=== PATIENT | male | born 1930 | race Caucasian/White ===

== ENCOUNTER 2017-04-10 17:19 | Observation (INO) | payer MEDICARE, BC ==
[2017-04-10] MEDS ORDERED: Haloperidol Lactate 5 MG/ML SDV ONE (18:13)
--- NOTE | 2017-04-10 19:12 | EDM.PDOC ---
ED HPI GENERAL MEDICAL PROBLEM - General Time Seen by Provider: 04/10/17 17:20 Source of Information: Reports: Other ([facility] staff) History Limitations: Reports: Uncooperative, Other (schizophernia) - History of Present Illness INITIAL COMMENTS - FREE TEXT/NARRATIVE: Pt is a 86 year old male apparently has had some behavioral changes over the past 3 days now. According to staff he has been opening his shirt and sitting in the mathur ways refusing to go to his room. Also he has been messing up the toilet with stool over the commode and huerta. He is not combative but has significant behavioral changes, hallucinating and delusional at times. Pt was seen by Psychiarist, and increased his afternoon dose of seroquel, but changes have not been initiated. Apparently I was requested to see patient today evening as the staff has noticed that patient abdomen is bulging and bladder scan done showed about 900CC of urine in the bladder. Pt has been having urinary incontinence for the past few days now. Hence patient wasa brought into the emergency room to have urinary catheterisation and further workup. He has had CBC, BMP and UA done on 04/08/17. His CBC is normal and BMP is stable. His UA showed blood. - Related Data Allergies Allergy/AdvReac Type Severity Reaction Status Date / Time No Known Allergies Allergy Verified 04/10/17 18:32 Home Meds: Home Meds Acetaminophen [Tylenol] 650 mg PO BID 04/10/17 [History] Calcitonin,[place],Synthetic [Calcitonin-[place]] 1 applic TOP DAILY 04/10/17 [ History] Citalopram Hydrobromide [Citalopram HBr] 20 mg PO DAILY 04/10/17 [History] Erythromycin Base [Erythromycin] 1 applic TOP DAILY 04/10/17 [History] Lisinopril [Lisinopril] 10 mg PO DAILY 04/10/17 [History] QUEtiapine [SEROquel] 200 mg PO BID 04/10/17 [History] QUEtiapine [SEROquel] 450 mg PO DAILY 04/10/17 [History] metFORMIN HCl [Metformin HCl] 250 mg PO BID 04/10/17 [History] metroNIDAZOLE [metroNIDAZOLE 0.75% Cream] 1 applic TOP DAILY 04/10/17 [History] ED ROS GENERAL - Review of Systems Review Of Systems: Unable To Obtain (due to schizophrenia) ED EXAM, GENERAL - Physical Exam Exam: See Below Exam Limited By: Uncooperative General Appearance: Alert, WD/WN, No Apparent Distress, Other (slightly irritable ) Eye Exam: Bilateral Eye: EOMI, PERRL Ears: Normal External Exam, Normal Canal, Hearing Grossly Normal, Normal TMs Ear Exam: Bilateral Ear: Auricle Normal, Canal Normal, TM normal Nose: Normal Inspection, Normal Mucosa, No Blood Throat/Mouth: Normal Inspection, Normal Lips, Normal Teeth, Normal Gums, Normal Oropharynx, Normal Voice, No Airway Compromise Head: Atraumatic, Normocephalic Neck: Normal Inspection, Supple, Non-Tender, Full Range of Motion Respiratory/Chest: No Respiratory Distress, Lungs Clear, Normal Breath Sounds, No Accessory Muscle Use, Chest Non-Tender Cardiovascular: Normal Peripheral Pulses, Regular Rate, Rhythm, No Edema, No Gallop, No JVD, No Murmur, No Rub GI/Abdominal: Normal Bowel Sounds, No Organomegaly, No Abnormal Bruit, Other ( there is a large supr pubic swelling which is very tense to palpation. Fluctuant. Appear vey much like distended baldder. Also his Depends are soaked with urine) Extremities: Normal Inspection, Normal Capillary Refill Neurological: Alert, CN II-XII Intact. No: Oriented Psychiatric: Flat Affect Skin Exam: Warm, Intact Course - Vital Signs Text/Narrative:: Apparently at this point patient has urinary bladder distension with overflow. His urinary incontinence is secondary to the distension.I am not sure how long he has been distended, but according to staff they feel it has been since today morning. Pt needed haldol 5mg IM to calm him down for carpio catheter insertion. Cather was inserted and about 1600 C of urine was drained. Pt's vitals have been stable. Cather has been presently clamped. Pt tolerated the procedure well. UA has been sent. Plan is to admit patient to hospital for observation as there is not enough staff at the care center to monitor patient with the catheter. Will continue to clamp and release the catheter every 4 hrs for 5-6 cycles and remove the catheter. Pt will not tell us if he has urge to urinate as he has been incontinence all this time. - Orders/Labs/Meds Meds: Medications Discontinued Medications Generic Name Dose Route Start Last Admin Trade Name Freq PRN Reason Stop Dose Admin Haloperidol Lactate Confirm 04/10/17 18:13 Haldol Administered 04/10/17 18:14 Dose 5 mg .ROUTE .STK-MED ONE Departure - Departure Time of Disposition: 19:30 Disposition: Refer to Observation Condition: Fair Clinical Impression: Incontinence overflow, urine, Bladder distension - Discharge Information - Problem List & Annotations (1) Bladder distension SNOMED Code(s): 30783377 Code(s): N32.89 - OTHER SPECIFIED DISORDERS OF BLADDER Status: Acute Current Visit: Yes (2) Incontinence overflow, urine SNOMED Code(s): 625214138 Code(s): N39.490 - OVERFLOW INCONTINENCE Status: Acute Current Visit: Yes - Problem List Review Problem List Initiated/Reviewed/Updated: Yes - Assessment/Plan Assessment:: Urinary bladder distension with overflow incontinence Plan: Apparently at this point patient has urinary bladder distension with overflow. His urinary incontinence is secondary to the distension.I am not sure how long he has been distended, but according to staff they feel it has been since today morning. Pt needed haldol 5mg IM to calm him down for carpio catheter insertion. Cather was inserted and about 1600 C of urine was drained. Pt's vitals have been stable. Cather has been presently clamped. Pt tolerated the procedure well. UA has been sent. Plan is to admit patient to hospital for observation as there is not enough staff at the care center to monitor patient with the catheter. Will continue to clamp and release the catheter every 4 hrs for 5-6 cycles and remove the catheter. Pt will not tell us if he has urge to urinate as he has been incontinence all this time.
[2017-04-10] MEDS ORDERED: Haloperidol Lactate 5 MG/ML SDV IM ONE (19:23)
[2017-04-10] MEDS: Acetaminophen 325 MG Tab PO SCH (23:41)
[2017-04-10] MEDS: QUETIAPINE 200 MG PO SCH (23:41)
[2017-04-10] MEDS: metFORMIN 500 MG Tab PO SCH (23:41)
[2017-04-11] MEDS: Acetaminophen 325 MG Tab PO SCH (07:43)
[2017-04-11] MEDS: QUETIAPINE 200 MG PO SCH ×2 (07:44→10:38)
[2017-04-11] MEDS: metFORMIN 500 MG Tab PO SCH (07:44)
[2017-04-11] MEDS ORDERED: QUETIAPINE PO SCH ×2 (08:00→20:00)
[2017-04-11] MEDS ORDERED: Non-Formulary Medication 1 Each (Metronidazole [Metronidazole 0.75% Cream] 1 APPLIC) TOP SCH (08:00)
[2017-04-11] MEDS ORDERED: Calcitonin (Salmon) Nasal Spray 3.7 ML Bottle NAS SCH (08:00)
[2017-04-11] MEDS ORDERED: Non-Formulary Medication 1 Each (Citalopram Hydrobromide [Citalopram Hbr] 20 MG) PO SCH (08:00)
[2017-04-11] MEDS ORDERED: Erythromycin Base 0.5% Ophth Oint 3.5 GM Tube EYEBOTH SCH (08:00)
[2017-04-11] MEDS: Lisinopril 10 MG Tab PO SCH ×2 (10:37→11:45)
[2017-04-11] MEDS ORDERED: QUETIAPINE 200 MG PO SCH (11:00)
--- NOTE | 2017-04-11 11:55 | PCM.DCSUM1 ---
Discharge Summary - Hospital Course Free Text/Narrative:: Pt had acute bladder distension, and agitated. Pt had Smith placed. There was approximately 1600 drained slowly. Also pt was admitted for bladder training. The catheter was clamped and released every 4hrs. Also his UA was negative. Pt has done well seems to be not agitated today morning and behaviour has improved. The possible cause of the agitation was bladder distension, to which patient might have been reacting. Today he is alert and responding appropriately and not agitated. catheter was removed. Plan is to discharge patient back to care center. Will discuss patient with his PCP Dr. Gonzalez. Brief History: Pt was seen in the emergency room for agittion with acute bladder distension. kindly see H&P for details. - Discharge Data Discharge Date: 04/11/17 Discharge Disposition: DC/Tfer to [facility] 61 Condition: Good - Discharge Diagnosis/Problem(s) (1) Bladder distension SNOMED Code(s): 22387325 ICD Code: N32.89 - OTHER SPECIFIED DISORDERS OF BLADDER Status: Acute Current Visit: Yes (2) Incontinence overflow, urine SNOMED Code(s): 071534031 ICD Code: N39.490 - OVERFLOW INCONTINENCE Status: Acute Current Visit: Yes - Patient Instructions Diet: Diabetic Diet Fluid Restriction: 1500 mL Activity: As Tolerated Showering/Bathing: January Shower - Discharge Plan Home Medications: Home Meds Acetaminophen [Tylenol] 650 mg PO BID 04/10/17 [History] Calcitonin,[place],Synthetic [Calcitonin-[place]] 1 applic TOP DAILY 04/10/17 [ History] Citalopram Hydrobromide [Citalopram HBr] 20 mg PO DAILY 04/10/17 [History] Erythromycin Base [Erythromycin] 1 applic TOP DAILY 04/10/17 [History] Lisinopril [Lisinopril] 10 mg PO DAILY 04/10/17 [History] QUEtiapine [SEROquel] 200 mg PO BID 04/10/17 [History] QUEtiapine [SEROquel] 450 mg PO DAILY 04/10/17 [History] metFORMIN HCl [Metformin HCl] 250 mg PO BID 04/10/17 [History] metroNIDAZOLE [metroNIDAZOLE 0.75% Cream] 1 applic TOP DAILY 04/10/17 [History] Referrals: PCP,None [Primary Care Provider] - - Discharge Summary/Plan Comment DC Time >30 min.: Yes Discharge Summary/Plan Comment: Pt had acute bladder distension, and agitated. Pt had Smith placed. There was approximately 1600 drained slowly. Also pt was admitted for bladder training. The catheter was clamped and released every 4hrs. Also his UA was negative. Pt has done well seems to be not agitated today morning and behaviour has improved. The possible cause of the agitation was bladder distension, to which patient might have been reacting. Today he is alert and responding appropriately and not agitated. catheter was removed.Pt appears to be at his baseline level of functioning now. Plan is to discharge patient back to care center. Will discuss patient with his PCP Dr. Gonzalez. - General Info Date of Service: 04/11/17 Subjective Update: Pt has been calmer and not agitated. Has had his breakfast. Has not been in any discomfort No episodes of agitation per staff. Urine draining through Smith. Functional Status: Reports: Tolerating Diet, Ambulating, Urinating, Other ( unable to obtain due to patient's condition) - Patient Data Weight - Most Recent: 68.946 kg Med Orders - Current: Current Medications Acetaminophen (Tylenol) 650 mg PO BID [facility] Last Admin: 04/11/17 07:43 Dose: 650 mg Calcitonin [place] (Miacalcin Nasal [place]) 0 ml MIKY DAILY [facility] Last Admin: 04/11/17 08:46 Dose: Not Given Erythromycin (Erythromycin 0.5% Ophth Oint) 0 gm EYEBOTH DAILY [facility] Last Admin: 04/11/17 08:45 Dose: Not Given Lisinopril (Prinivil) 10 mg PO DAILY [facility] Last Admin: 04/11/17 10:37 Dose: Not Given Metformin HCl (Glucophage) 250 mg PO BID [facility] Last Admin: 04/11/17 07:44 Dose: 250 mg Non-Formulary Medication (Citalopram Hydrobromide [Citalopram Hbr]) 20 mg PO DAILY [facility] Last Admin: 04/11/17 10:37 Dose: Not Given Non-Formulary Medication (Metronidazole [Metronidazole 0.75% Cream]) 1 applic TOP DAILY [facility] Last Admin: 04/11/17 08:45 Dose: Not Given Non-Formulary Medication (Quetiapine [Seroquel]) 450 mg PO DAILY@1999 [facility] (Quetiapine [ Seroquel] 200 Mg)*Pt Own Med* 200 mg PO BID@0800,1100 [facility] Discontinued Medications Haloperidol Lactate (Haldol) Confirm Administered Dose 5 mg .ROUTE .STK-MED ONE Stop: 04/10/17 18:14 Last Admin: 04/10/17 23:41 Dose: Not Given Haloperidol Lactate (Haldol) 5 mg IM ONETIME ONE Stop: 04/10/17 19:24 Last Admin: 04/11/17 07:41 Dose: 5 mg Non-Formulary Medication (Quetiapine [Seroquel]) 200 mg PO BID [facility] Last Admin: 04/11/17 10:38 Dose: Not Given Non-Formulary Medication (Quetiapine [Seroquel]) 450 mg PO DAILY [facility] Non-Formulary Medication (Quetiapine [Seroquel]) 200 mg PO BID@1100,2000 [facility] (Quetiapine [ Seroquel] 200 Mg)*Pt Own Med* 200 mg PO ONETIME ONE Stop: 04/11/17 11:16 Quetiapine Fumarate (Seroquel) Confirm Administered Dose 200 mg .ROUTE .STK-MED ONE Stop: 04/11/17 07:37 Last Admin: 04/11/17 07:42 Dose: 200 mg - Exam General: Reports: Alert, Oriented HEENT: Reports: Pupils Equal, Pupils Reactive, EOMI, Mucous Membr. Moist/[place] Neck: Reports: Supple Lungs: Reports: Clear to Auscultation, Normal Respiratory Effort Cardiovascular: Reports: Regular Rate, Regular Rhythm GI/Abdominal Exam: Normal Bowel Sounds, Soft, Non-Tender, No Organomegaly, No Distention, No Abnormal Bruit, No Mass, Pelvis Stable Back Exam: Reports: Normal Inspection, Full Range of Motion Extremities: Normal Inspection, Normal Range of Motion, Non-Tender, No Pedal Edema, Normal Capillary Refill *Q Meaningful Use (DIS) - VTE *Q VTE Criteria *Q: - Stroke *Q Stroke Criteria *Q: - AMI *Q AMI Criteria *Q:
[2017-04-11 14:39] VITALS: BP 151/59
== END 2017-04-11 14:20 ==
LOC: LB.ED 17:19 → UNDOADMOB 19:00 → LB.MS 19:00
PROVIDERS: ADMIT Family Medicine; ATTEND Family Medicine
DX: N32.89 Other specified disorders of bladder (principal); N39.490 Overflow incontinence; E11.9 Type 2 diabetes mellitus without complications; Z79.84 Long term (current) use of oral hypoglycemic drugs; Z79.899 Other long term (current) drug therapy
CPT/HCPCS: 51702; 81001; 96372; 99284; A9270; G0378; J1630; 99217; 99219

== ENCOUNTER 2017-04-13 15:33 | Emergency (ER) | payer MEDICARE, BC ==
[2017-04-13 15:58] VITALS: BP 165/87
[2017-04-13] MEDS ORDERED: Magnesium Citrate Solution 296 ML Bottle PO ONE (17:00)
--- NOTE | 2017-04-13 18:01 | EDM.PDOC ---
ED HPI GENERAL MEDICAL PROBLEM - General Chief Complaint: General Stated Complaint: urine retention, diarrhea Time Seen by Provider: 04/13/17 16:00 Source of Information: Reports: Intermediate Records, RN, Other (Caitlyn nurse from LT) History Limitations: Reports: Other (pt responds best to written words, hard of hearing) - History of Present Illness INITIAL COMMENTS - FREE TEXT/NARRATIVE: This 86 yr male presents with unable to urinate and no BM for 4 days. Caitlyn nurse from [facility] states pt has had some loose stools, but no good BM for 4 days. Abdomen is distended. States there is an order for intermittent catheter every shift as needed for no urination. Staff report that pt hasn't let them put the catheter in this shift and no urine has been noted in the hat in the toilet. U/A ordered with carpio catheter and x-ray of abdomen. Carpio catheter placed with large amount juan urine noted. Pt resting well sitting in wheelchair after carpio catheter inserted. U/A clear with no bacteria noted. 1645pm Reviewed pt status with Dr Gonzalez, states carpio catheter may remain for 48 hour unless pt states discomfort with it, then may D/C sooner. Magnesium citrate for BM. 1700 X-ray report confirms constipation, no bowel obstruction. VERONICA Prado started pt with magnesium citrate. Pt took fluid well. 1705 Pt discharged to care of staff at longterm care facility. Onset: Gradual Onset Date: 04/09/17 Duration: Intermittent Associated Symptoms: Reports: Other (Constipation and no urination) Treatments [employer]: Reports: Other Medication(s) - Related Data Allergies Allergy/AdvReac Type Severity Reaction Status Date / Time No Known Allergies Allergy Verified 04/10/17 18:32 Home Meds: Home Meds Acetaminophen [Tylenol] 650 mg PO BID 04/10/17 [History] Calcitonin,[place],Synthetic [Calcitonin-[place]] 1 spray INH DAILY 04/10/17 [ History] Citalopram Hydrobromide [Citalopram HBr] 20 mg PO BEDTIME 04/10/17 [History] Erythromycin Base [Erythromycin] 1 applic TOP BEDTIME 04/10/17 [History] Lisinopril [Lisinopril] 10 mg PO DAILY 04/10/17 [History] QUEtiapine [SEROquel] 450 mg PO BEDTIME 04/10/17 [History] metFORMIN HCl [Metformin HCl] 250 mg PO BID 04/10/17 [History] metroNIDAZOLE [metroNIDAZOLE 0.75% Cream] 1 applic TOP DAILY 04/10/17 [History] QUEtiapine Fumarate [Seroquel] 100 mg PO ACBREAKFAST 04/13/17 [History] QUEtiapine [SEROquel XR] 1 tab PO ACLUNCH 04/13/17 [History] Past Medical History Other HEENT History: [place] Cardiovascular History: Reports: Hypertension Genitourinary History: Reports: Retention, Urinary Musculoskeletal History: Reports: Other (See Below) Other Musculoskeletal History: Generalized weakness Neurological History: Reports: Alzheimers Disease Psychiatric History: Reports: Alzheimers Disease, Dementia, Depression, Schizophrenia Endocrine/Metabolic History: Reports: Diabetes, Type II Dermatologic History: Reports: Psoriasis, Seborrheic Dermatitis, Other (See Below) Other Dermatologic History: Toenail Fungus. Rosacia Social & Family History - Family History Family Medical History: Noncontributory - Tobacco Use Smoking Status *Q: Unknown Ever Smoked Second Hand Smoke Exposure: Yes - Caffeine Use Caffeine Use: Reports: Coffee - Recreational Drug Use Recreational Drug Use: No ED ROS GENERAL - Review of Systems Review Of Systems: See Below Constitutional: Denies: Fever, Chills Respiratory: Reports: No Symptoms Cardiovascular: Reports: No Symptoms GI/Abdominal: Reports: Constipation, Distension : Reports: Urinary Retention Musculoskeletal: Reports: No Symptoms ED EXAM, GENERAL - Physical Exam Exam: See Below Exam Limited By: Other (Pt not responding to questions.) General Appearance: Alert, No Apparent Distress. No: Anxious Respiratory/Chest: No Respiratory Distress, Lungs Clear Cardiovascular: Regular Rate, Rhythm, No Edema GI/Abdominal: Normal Bowel Sounds, Distended. No: Guarding, Rebound (Male) Exam: Normal Inspection Extremities: Normal Inspection Neurological: Alert Psychiatric: Flat Affect Skin Exam: Warm, Dry, Normal Color Course - Vital Signs Last Recorded V/S: Last Vital Signs Temp 98.6 F 04/13/17 15:33 Pulse 90 04/13/17 15:33 Resp 12 04/13/17 15:33 BP 165/87 H 04/13/17 15:33 Pulse Ox 97 04/13/17 15:33 - Orders/Labs/Meds Orders: Active Orders 24 hr Category Date Time Status Abdomen 1V Upright [CR] Stat Exams 04/13/17 16:01 Ordered Labs: Laboratory Tests 04/13/17 Range/Units 16:00 Urine Color Yellow Urine Appearance Clear (CLEAR) Urine pH 6.5 (5.0-8.0) Ur Specific [place] 1.025 (1.003-1.030) Urine Protein 30 H (NEGATIVE) mg/dL Urine Glucose (UA) 100 H (NEGATIVE) mg/dL Urine Ketones Negative (NEGATIVE) mg/dL Urine Occult Blood Trace-intact H (NEGATIVE) Urine Nitrite Negative (NEGATIVE) Urine Bilirubin Negative (NEGATIVE) Urine Urobilinogen 0.2 (0.2-1.0) E.U./dL Ur Leukocyte Esterase Negative (NEGATIVE) Urine RBC 5-10 H /HPF Urine WBC Not seen /HPF Meds: Medications Discontinued Medications Generic Name Dose Route Start Last Admin Trade Name Freq PRN Reason Stop Dose Admin Magnesium Citrate 296 ml 04/13/17 17:00 Citrate Of Magnesia PO 04/13/17 17:01 ONETIME ONE Departure - Departure Time of Disposition: 17:05 Disposition: DC/Tfer to [facility] Condition: Good Clinical Impression: Bladder distension, Constipation - Discharge Information Instructions: Constipation, Adult, Fecal Impaction Referrals: PCP,None [Primary Care Provider] - Forms: ED Department Discharge - My Orders Last 24 Hours: My Active Orders 04/13/17 16:01 Abdomen 1V Upright [CR] Stat - Assessment/Plan Last 24 Hours: My Active Orders 04/13/17 16:01 Abdomen 1V Upright [CR] Stat
--- NOTE | 2017-04-14 07:10 | CR ---
DATE OF SERVICE: 04/13/17 CLINICAL DATA: Abdominal distention, stool incontinence. SUPINE ABDOMEN: There is a large amount of stool noted throughout the colon and rectum. There is left convexity scoliosis of the upper lumbar spine. There is degenerative disc disease at multiple levels in the lower thoracic and lumbar spine. There are partial compression fractures of the L1 and L2 vertebrae, age indeterminate. No other significant findings. [id number] [facility]
== END 2017-04-13 17:15 ==
LOC: LB.ED 15:33
DX: N32.89 Other specified disorders of bladder (principal); K59.00 Constipation, unspecified; G30.9 Alzheimer's disease, unspecified; F02.80 Dementia in other diseases classified elsewhere, unspecified severity, without behavioral disturbance, psychotic disturbance, mood disturbance, and anxiety; E11.9 Type 2 diabetes mellitus without complications; F20.9 Schizophrenia, unspecified; Z79.84 Long term (current) use of oral hypoglycemic drugs; Z79.899 Other long term (current) drug therapy
CPT/HCPCS: 74000; 81001; 99283; 99284

== ENCOUNTER 2017-04-18 16:38 | Emergency (ER) | payer MEDICARE, BC ==
[2017-04-18] MEDS ORDERED: Ciprofloxacin 500 MG Tab ONE (17:50)
--- NOTE | 2017-04-18 17:55 | EDM.PDOC ---
ED HPI GENERAL MEDICAL PROBLEM - General Chief Complaint: Genitourinary Problem Stated Complaint: URINARY RETENTION Time Seen by Provider: 04/18/17 16:47 Source of Information: Reports: Other (long term staff) - History of Present Illness Onset: Today Onset Date: 04/18/17 Onset Time: 14:00 Treatments [place] CONSTABLE: Reports: Other (see below) Other Treatments [place] CONSTABLE: Bladder scan - Related Data Allergies Allergy/AdvReac Type Severity Reaction Status Date / Time No Known Allergies Allergy Verified 04/10/17 18:32 Home Meds: Home Meds Acetaminophen [Tylenol] 650 mg PO BID 04/10/17 [History] Calcitonin,[place],Synthetic [Calcitonin-[place]] 1 spray INH DAILY 04/10/17 [ History] Citalopram Hydrobromide [Citalopram HBr] 20 mg PO BEDTIME 04/10/17 [History] Erythromycin Base [Erythromycin] 1 applic TOP BEDTIME 04/10/17 [History] Lisinopril [Lisinopril] 10 mg PO DAILY 04/10/17 [History] QUEtiapine [SEROquel] 450 mg PO BEDTIME 04/10/17 [History] metFORMIN HCl [Metformin HCl] 250 mg PO BID 04/10/17 [History] metroNIDAZOLE [metroNIDAZOLE 0.75% Cream] 1 applic TOP DAILY 04/10/17 [History] QUEtiapine Fumarate [Seroquel] 100 mg PO ACBREAKFAST 04/13/17 [History] QUEtiapine [SEROquel XR] 1 tab PO ACLUNCH 04/13/17 [History] Past Medical History Other HEENT History: ELEM Cardiovascular History: Reports: Hypertension Genitourinary History: Reports: Retention, Urinary Musculoskeletal History: Reports: Other (See Below) Other Musculoskeletal History: Generalized weakness Neurological History: Reports: Alzheimers Disease Psychiatric History: Reports: Alzheimers Disease, Dementia, Depression, Schizophrenia Endocrine/Metabolic History: Reports: Diabetes, Type II Dermatologic History: Reports: Psoriasis, Seborrheic Dermatitis, Other (See Below) Other Dermatologic History: Toenail Fungus. Rosacia Social & Family History - Family History Family Medical History: Noncontributory - Tobacco Use Smoking Status *Q: Unknown Ever Smoked Second Hand Smoke Exposure: Yes - Caffeine Use Caffeine Use: Reports: Coffee - Recreational Drug Use Recreational Drug Use: No ED ROS GENERAL - Review of Systems Review Of Systems: Unable To Obtain ED EXAM, RENAL/ - Physical Exam Exam: Not Obtained Course - Vital Signs Last Recorded V/S: Last Vital Signs Temp 36.8 C 04/18/17 17:45 Pulse 76 04/18/17 17:45 Resp 20 04/18/17 17:45 BP 166/94 H 04/18/17 17:45 Pulse Ox 99 04/18/17 17:45 - Orders/Labs/Meds Orders: Active Orders 24 hr Category Date Time Status Abdomen 2V AP Flat Upright [CR] Stat Exams 04/18/17 16:42 Taken CULTURE URINE [RM] Stat Lab 04/18/17 17:00 Received Labs: Laboratory Tests 04/18/17 04/18/17 04/18/17 Range/Units 16:42 17:00 17:00 WBC 5.0 (4.0-11.0) K/uL RBC 4.15 L (4.50-6.50) M/uL Hgb 13.0 (13.0-18.0) g/dL Hct 39.2 L (40.0-54.0) % MCV 95 (76-96) fL MCH 31.3 (27.0-32.0) pg MCHC 33.2 (31.0-35.0) g/dL RDW 12.4 (11.0-16.0) % Plt Count 262 D (150-400) K/uL MPV 9.2 (6.0-10.0) fL Neut % (Auto) 53.2 (45.0-70.0) % Lymph % (Auto) 28.4 (20.0-40.0) % [place] % (Auto) 12.2 H (3.0-10.0) % Eos % (Auto) 5.8 H (1.0-5.0) % Baso % (Auto) 0.4 (0.0-0.5) % Neut # (Auto) 2.66 (2.00-7.50) K/uL Lymph # (Auto) 1.42 L (1.50-4.00) K/uL [place] # (Auto) 0.61 (0.20-0.80) K/uL Eos # (Auto) 0.29 (0.04-0.40) K/uL Baso # (Auto) 0.02 (0.02-0.10) K/uL Sodium 140 (136-145) mmol/L Potassium 4.4 (3.5-5.1) mmol/L Chloride 105 (98-107) mmol/L Carbon Dioxide 27.5 (21.0-32.0) mmol/L Anion Gap 11.9 (5.0-15.0) mmol/L BUN 30 H D (8-26) mg/dL Creatinine 1.10 (0.70-1.30) mg/dL Est Cr Clr Drug Dosing TNP Estimated GFR (MDRD) > 60 (>60) MLS/MIN BUN/Creatinine Ratio 27.3 H (6-25) Glucose 140 H (74-100) mg/dL Calcium 9.2 (8.5-10.1) mg/dL Total Bilirubin 0.8 (0.0-1.0) mg/dL AST 12 L (15-37) U/L ALT 14 (12-78) U/L Alkaline Phosphatase 87 (46-116) U/L Total Protein 7.5 (6.4-8.2) g/dL Albumin 3.7 (3.4-5.0) g/dL Globulin 3.8 (2.2-4.2) g/dL Albumin/Globulin Ratio 1.0 (0.8-2.0) Urine Color Yellow Urine Appearance Slightly cloudy (CLEAR) Urine pH 5.5 (5.0-8.0) Ur Specific [place] >= 1.030 (1.003-1.030) Urine Protein Trace H (NEGATIVE) mg/dL Urine Glucose (UA) Negative (NEGATIVE) mg/dL Urine Ketones Negative (NEGATIVE) mg/dL Urine Occult Blood Moderate H (NEGATIVE) Urine Nitrite Negative (NEGATIVE) Urine Bilirubin Negative (NEGATIVE) Urine Urobilinogen 0.2 (0.2-1.0) E.U./dL Ur Leukocyte Esterase Trace H (NEGATIVE) Urine RBC 5-10 H /HPF Urine WBC Semi-packed H /HPF Urine WBC Clumps Few /HPF Ur Squamous Epith Cells Few /HPF Urine Bacteria Moderate H /HPF Departure - Departure Time of Disposition: 17:53 Disposition: DC/Tfer to Longterm [place] [id number] Clinical Impression: UTI, Urinary tract infectious disease, UTI (urinary tract infection) - Discharge Information Forms: ED Department Discharge - My Orders Last 24 Hours: My Active Orders 04/18/17 16:42 Abdomen 2V AP Flat Upright [CR] Stat 04/18/17 17:00 CULTURE URINE [RM] Stat - Assessment/Plan Last 24 Hours: My Active Orders 04/18/17 16:42 Abdomen 2V AP Flat Upright [CR] Stat 04/18/17 17:00 CULTURE URINE [RM] Stat
[2017-04-18 18:03] VITALS: BP 154/97
--- NOTE | 2017-04-19 19:12 | CR ---
DATE OF SERVICE: 04/18/2017 CLINICAL DATA: Constipation. SUPINE AND UPRIGHT ABDOMEN There is a large amount of stool present throughout the colon and rectum. No evidence of obstruction or ileus. No free air. [id number] [facility]
== END 2017-04-18 18:00 ==
LOC: LB.ED 16:38
DX: N13.9 Obstructive and reflux uropathy, unspecified (principal); N39.0 Urinary tract infection, site not specified; K59.00 Constipation, unspecified; I10 Essential (primary) hypertension; E11.9 Type 2 diabetes mellitus without complications; G30.9 Alzheimer's disease, unspecified; F02.80 Dementia in other diseases classified elsewhere, unspecified severity, without behavioral disturbance, psychotic disturbance, mood disturbance, and anxiety; Z79.899 Other long term (current) drug therapy; Z79.84 Long term (current) use of oral hypoglycemic drugs
CPT/HCPCS: 36415; 51702; 51798; 74020; 80053; 81001; 85025; 87086; 87088; 87186; 99283; A9270

== ENCOUNTER 2017-04-26 10:42 | Inpatient (IN) | payer MEDICARE, BC ==
[2017-04-26] MEDS ORDERED: HYDROmorphone 2 MG/ML Syringe IVPUSH ONE (11:38)
[2017-04-26] MEDS ORDERED: Ondansetron 4 MG/2 ML SDV IVPUSH ONE (11:44)
[2017-04-26] MEDS ORDERED: HYDROmorphone 2 MG/ML Syringe ONE (11:58)
[2017-04-26] MEDS ORDERED: Ondansetron 4 MG/2 ML SDV ONE (11:59)
[2017-04-26] MEDS ORDERED: Sodium Chloride 0.9% 1,000 ML IV SCH (12:33)
[2017-04-26] MEDS ORDERED: Albuterol 0.083% 2.5 MG/3 ML Neb Soln NEB PRN (12:33)
[2017-04-26] MEDS ORDERED: Ondansetron 4 MG/2 ML SDV IV PRN (12:33)
--- NOTE | 2017-04-26 13:01 | PCM.HP ---
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 The Nurse Enzyme Chemist reports Mr. Lowe has fallen twice yesterday and once this morning, when it was observed his falling from an unsteady gait to the floor, hit the right hip and back of his head. He is here for evaluation. -Workup in the Emergency Room he had a XR of right hip and pelvis; negative for acute bony injury. Head CT without contrast Acute on chronic Subdural Hemorrhage layering along the right side of the falx and along the right tentorium. Extra-axial areas of high density lentiform shaped hemorrhage wihtin the right high frontal region measuring up to 7.5 mm in greatest axial dimension , likely subdural. right to left midline shift of approximately 6mm. -Consulted with [facility] Neurosurgeon who recommends 24 hour observation, repeat Head CT without contrast in am, and appointment with Neurology Clinic in one month. Report this type of bleed can resolve on its own without any intervention or can progress. will need to monitor. Contact was made with Housekeeper Nanny, will admit as recommended, keep comfortable and provide recommended care. will contact Guardian to inform of Mr. Lowe condition. He is currently being treated for bladder infection. He has pre-existing severe dementia, paranoid schizophrenia with hallucination, UTI, psoriasis and HTN. Guardian appointed and Housekeeper Nanny manage his care. He is DNR/DNI Onset of Symptoms: Reports: Sudden Duration of Symptoms: Reports: Hour(s): Location: Reports: Generalized Quality: Reports: Other (agitation) Severity: Moderate Improves with: Reports: None Worsens with: Reports: Movement Context: Reports: Other (fall at [facility]) Associated Symptoms: Reports: Other (agitiation) - Related Data Allergies/Adverse Reactions: Allergies Allergy/AdvReac Type Severity Reaction Status Date / Time No Known Allergies Allergy Verified 04/26/17 11:33 Home Medications: Home Meds Acetaminophen [Tylenol] 650 mg PO BID 04/10/17 [History] Calcitonin,Tanacross,Synthetic [Calcitonin-Tanacross] 1 spray INH DAILY 04/10/17 [ History] Citalopram Hydrobromide [Citalopram HBr] 20 mg PO BEDTIME 04/10/17 [History] Erythromycin Base [Erythromycin] 1 applic TOP BEDTIME 04/10/17 [History] Lisinopril [Lisinopril] 10 mg PO DAILY 04/10/17 [History] QUEtiapine [SEROquel] 450 mg PO BEDTIME 04/10/17 [History] metFORMIN HCl [Metformin HCl] 250 mg PO BID 04/10/17 [History] metroNIDAZOLE [metroNIDAZOLE 0.75% Cream] 1 applic TOP DAILY 04/10/17 [History] QUEtiapine Fumarate [Seroquel] 100 mg PO ACBREAKFAST 04/13/17 [History] QUEtiapine [SEROquel XR] 1 tab PO ACLUNCH 04/13/17 [History] Past Medical History Other HEENT History: KASAAN Cardiovascular History: Reports: Hypertension Genitourinary History: Reports: Retention, Urinary Musculoskeletal History: Reports: Other (See Below) Other Musculoskeletal History: Generalized weakness Neurological History: Reports: Alzheimers Disease Psychiatric History: Reports: Alzheimers Disease, Dementia, Depression, Schizophrenia Endocrine/Metabolic History: Reports: Diabetes, Type II Dermatologic History: Reports: Psoriasis, Seborrheic Dermatitis, Other (See Below) Other Dermatologic History: Toenail Fungus. Rosacia Social & Family History - Family History Family Medical History: Noncontributory - Tobacco Use Smoking Status *Q: Unknown Ever Smoked Second Hand Smoke Exposure: Yes - Caffeine Use Caffeine Use: Reports: Coffee - Recreational Drug Use Recreational Drug Use: No - Living Situation & Occupation Living situation: Reports: Extended Care Facility Occupation: Disabled H&P Review of Systems - Review of Systems: Review Of Systems: Unable To Obtain (Mr. Lowe has severe Dementia and Schizophrenia) General: Reports: ROS unobtainable Skin: Reports: Other (facial dermatitis) Psychiatric: Reports: Confusion, Agitation, Hallucinations, Other (pre-existing severe schizophrenia and advanced dementia) Neurological: Reports: Pre-Existing Deficit Immunologic: Reports: No Symptoms Exam - Exam Exam: See Below - Vital Signs Weight: 68.946 kg - Exam General: Other (agitation) HEENT: Conjunctiva Clear, Pupils Equal, Pupils Reactive, Other (face; severe dermatitis, skin dry and flaking. mouth is dry. teeth not cavities noted) Neck: Trachea Midline Lungs: Clear to Auscultation, Normal Respiratory Effort Cardiovascular: Regular Rate, Regular Rhythm, Normal S1, Normal S2 GI/Abdominal Exam: Normal Bowel Sounds, Soft, Non-Tender, Pelvis Stable (Male) Exam: Deferred, Other (wearing diaper) Rectal (Males) Exam: Deferred Back Exam: Normal Inspection Extremities: Normal Inspection, Normal Range of Motion, Non-Tender, No Pedal Edema, Normal Capillary Refill Skin: Rash (chronic dermatitis of face.) Neuro Extensive - Mental Status: Other (pre-existing advance dementia and schizophrenia) Neuro Extensive - Motor, Sensory, Reflexes: Other (pre-existing til of head to right, ) Psychiatric: Anxious, Agitated Physical Exam Comments:: Mr. Lowe is a thin, advanced age, male with pre-existing conditions. He has incoherent speech patterns, becomes agitated when touch or talked to. He hollers with any movement of his body. He was medication with Dilaudid and Valium, which made him more comfortable and decreased agitated state. *Q Meaningful Use (ADM) - VTE *Q VTE Criteria *Q: VTE Anticoagulation Contraindications: Medical/Procedure Contrai - Stroke *Q Stroke Criteria *Q: - AMI *Q AMI Criteria *Q: - Problem List (1) Subdural hemorrhage following injury SNOMED Code(s): 189819253 ICD Code: S06.5X9A - TRAUM SUBDR HEM W LOC OF UNSP DURATION, INIT Status: Acute Priority: High Current Visit: Yes Qualifiers: Encounter type: initial encounter Loss of consciousness presence/duration: without LOC Qualified Code(s): S06.5X0A - Traumatic subdural hemorrhage without loss of consciousness, initial encounter (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 Status: Acute Priority: High Current Visit: Yes Qualifiers: Dementia behavioral disturbance: with behavioral disturbance Qualified Code (s): F02.81 - Dementia in other diseases classified elsewhere with behavioral disturbance (3) Paranoid schizophrenia, chronic condition SNOMED Code(s): 63123823 ICD Code: F20.0 - PARANOID SCHIZOPHRENIA Status: Acute Priority: High Current Visit: Yes (4) UTI (urinary tract infection) SNOMED Code(s): 27680906 ICD Code: N39.0 - URINARY TRACT INFECTION, SITE NOT SPECIFIED Status: Acute Priority: High Current Visit: Yes Qualifiers: Urinary tract infection type: site unspecified Hematuria presence: without hematuria Qualified Code(s): N39.0 - Urinary tract infection, site not specified Problem List Initiated/Reviewed/Updated: Yes Orders Last 24hrs: Active Orders 24 hr Category Date Time Status Patient Status [ADT] Routine ADT 04/26/17 12:33 Active Assess Neurological Status [RC] Q4H Care 04/26/17 12:33 Active Intake and Output [RC] QSHIFT Care 04/26/17 12:33 Active Notify Provider Vital Signs [RC] ASDIRECTED Care 04/26/17 12:33 Active Oxygen Therapy [RC] PRN Care 04/26/17 12:33 Active Oxygen Therapy [RC] PRN Care 04/26/17 12:33 Active RT Aerosol Therapy [RC] ASDIRECTED Care 04/26/17 12:33 Active VTE/DVT Education [RC] Per Unit Routine Care 04/26/17 12:33 Active Vital Signs [RC] Q4H Care 04/26/17 12:33 Active Vital Signs [RC] Q4H Care 04/26/17 12:33 Active Consult to Case Management [CONS] Routine Cons 04/26/17 12:33 Active Full Liquid Diet [DIET] Diet 04/26/17 Dinner Ordered Head wo Cont [CT] Timed Exams 04/27/17 10:10 Ordered BASIC METABOLIC PANEL,BMP [CHEM] AM Lab 04/27/17 05:11 Ordered CBC WITH AUTO DIFF [HEME] AM Lab 04/27/17 05:11 Ordered Albuterol [Proventil Neb Soln] Med 04/26/17 12:33 Active 2.5 mg NEB Q2H PRN Citalopram [Celexa] Med 04/27/17 20:00 Active 20 mg PO BEDTIME Erythromycin Base [Erythromycin 0.5% Ophth Oint] Med 04/26/17 20:00 Active 0 gm EYEBOTH BEDTIME HYDROmorphone [Dilaudid] Med 04/26/17 12:33 Active 0.5 mg IV Q2H PRN LORazepam [Ativan] Med 04/26/17 12:33 Active 0.1 - 1 mg IVPUSH Q2H PRN Lisinopril [Prinivil] Med 04/27/17 08:00 Active 10 mg PO DAILY Ondansetron [Zofran] Med 04/26/17 12:33 Active 4 mg IV Q4H PRN QUEtiapine [SEROquel XR] Med 04/27/17 11:00 Pending 1 tab PO ACLUNCH QUEtiapine [SEROquel] Med 04/27/17 07:30 Active 100 mg PO DAILY@0730 QUEtiapine [SEROquel] Med 04/26/17 20:00 Active 450 mg PO BEDTIME Sodium Chloride 0.9% [Normal Saline] 1,000 ml Med 04/26/17 12:33 Active IV ASDIRECTED metroNIDAZOLE [metroNIDAZOLE 0.75% Cream] Med 04/27/17 08:00 Pending 1 applic TOP DAILY Anticoagulation Contraindications VTE [AST] Per Unit Oth 04/26/17 12:33 Ordered Routine Resuscitation Status Routine Resus Stat 04/26/17 12:15 Ordered Medication Orders Albuterol (Proventil Neb Soln) 2.5 mg NEB Q2H PRN PRN Reason: Shortness Of Breath/wheezing Citalopram Hydrobromide (Celexa) 20 mg PO BEDTIME BRIGITTE Erythromycin (Erythromycin 0.5% Ophth Oint) 0 gm EYEBOTH BEDTIME BRIGITTE Hydromorphone HCl (Dilaudid) 0.5 mg IV Q2H PRN PRN Reason: Pain (severe 7-10) Sodium Chloride (Normal Saline) 1,000 mls @ 100 mls/hr IV ASDIRECTED BRIGITTE Lisinopril (Prinivil) 10 mg PO DAILY BRIGITTE Lorazepam (Ativan) 0.1 - 1 mg IVPUSH Q2H PRN PRN Reason: Agitation Non-Formulary Medication (Quetiapine [Seroquel Xr]) 1 tab PO ACLUNCH [facility] Non-Formulary Medication (Metronidazole [Metronidazole 0.75% Cream]) 1 applic TOP DAILY BRIGITTE Ondansetron HCl (Zofran) 4 mg IV Q4H PRN PRN Reason: Nausea/Vomiting Quetiapine Fumarate (Seroquel) 450 mg PO BEDTIME BRIGITTE Quetiapine Fumarate (Seroquel) 100 mg PO DAILY@0730 [facility] Assessment/Plan Comment:: Assessment and plan: History of present Illness/injury: Fall, Subdural Hemorrhage, Schizophrenia, UTI This is a 86 year old male present [facility] ER from [facility] he [facility] a [facility] resident. The Nurse Enzyme Chemist reports Mr. Lowe has fallen twice yesterday and once this morning, when it was observed his falling from an unsteady gait to the floor, hit the right hip and back of his head. -Workup in the Emergency Room he had a XR of right hip and pelvis; negative for acute bony injury. Head CT without contrast Acute on chronic Subdural Hemorrhage layering along the right side of the falx and along the right tentorium. Extra-axial areas of high density lentiform shaped hemorrhage within the right high frontal region measuring up to 7.5 mm in greatest axial dimension , likely subdural. right to left midline shift of approximately 6mm. -Consulted with [facility] Neurosurgeon who recommends 24 hour observation, repeat Head CT without contrast in am, and appointment with Neurology Clinic in one month. Report this type of bleed can resolve on its own without any intervention or can progress. will need to monitor. Contact was made with Housekeeper Nanny, will admit as recommended, keep comfortable and provide recommended care. will contact Guardian to inform of Mr. Lowe's condition. He is currently being treated for bladder infection. He has pre-existing severe dementia, paranoid schizophrenia with hallucination, UTI, psoriasis and HTN. Guardian appointed and Housekeeper Nanny manage his care. He is DNR/DNI Acute on Chronic Subdural Hemorrhage: -24 hours observation -repeat Head CT without contrast in am -Neurology Clinic appointment in one month -medicate for pain; Dilaudid 0.5 to 1 mg IV every 2 hours as needed for pain -medicate for agitation; Ativan 0.5 to 1 mg IV every 2 hours as needed for agitation -IV fluids Normal Saline 100ml/hr -neuro checks every 4 hours x 24 hours Schizophrenia; paranoid with delirium, agitation -continue medications as prescribed Hypertension -continue Lisinopril 20 po daily Urinary Tract Infection -continue antibiotic -push fluids Atopic dermatitis -skin care as directed. -Metronizole topical as directed Maintenance Issues -DVT prophylaxis; contraindicated due to active subdural hemorrhage -GI Prophylaxis; Protonix 40 mg IV -Nutrition; regular soft diet -Carpio Catheter-chronic indwelling carpio catheter CODE STATUS; DNR/DNI Admission Justification; This patient will be admitted for Observation services. It is reasonably expected the patient will not require inpatient services that span a period time over 2 midnights. I reasonably expect this patient to be discharge or transferred within 2 midnights [facility]. Disposition ; [facility] to [facility] after Observation services. Primary Care Physician; Dr. Gonzalez, [facility] Hospitalist; Ashutosh Mclean, [employer]
[2017-04-26] MEDS: LORazepam 2 MG/ML MDV IVPUSH PRN ×2 (13:03→18:46)
--- NOTE | 2017-04-26 13:27 | CT ---
DATE OF SERVICE: 04/26/17 CLINICAL DATA: fall ; head with hematoma, right hip pain UNENHANCED BRAIN CT There is a chronic subdural hematoma on the right. Its maximum depth is 6 mm. There is hyperdense material within the interhemispheric fissure as well as within the chronic subdural in the right frontal and right anterior parietal region consistent with rebleed. Its maximum depth is 10 mm. It does produce 6 mm shift of the midline structures to the left. There is diffuse cerebral atrophy. There are periventricular lucencies bilaterally consistent with small-vessel ischemic change. No other significant findings. 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 See above. The patient's physician was notified of the findings by [facility] preliminary radiology report. [id number] [facility]
--- NOTE | 2017-04-26 13:29 | CR ---
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 No acute fracture or dislocation. No focal lytic or blastic bone lesions. [id number] [facility]
[2017-04-26] MEDS: Pantoprazole 40 MG Vial IVPUSH SCH (14:42)
[2017-04-26] MEDS: HYDROmorphone 2 MG/ML Syringe IV PRN ×2 (14:46→20:49)
[2017-04-26] MEDS: Erythromycin Base 0.5% Ophth Oint 3.5 GM Tube EYEBOTH SCH (20:14)
--- NOTE | 2017-04-26 20:42 | EDM.PDOC ---
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 The Nurse Fire Sprinkler Inspector reports Mr. Lowe has fallen twice yesterday and once this morning, when it was observed his falling from an unsteady gait to the floor, hit the right hip and back of his head. He is here for evaluation. He is currently being treated for bladder infection. He has pre-existing severe dementia, paranoid schizophrenia with hallucination, UTI, psoriasis and HTN. Guardian appointed and Data Communications Analyst manage his care. He is DNR/DNI Onset of Symptoms: Reports: Sudden Onset: Sudden Duration: Hour(s): Location: Reports: Generalized Quality: Reports: Other (agitation) Severity: Moderate Improves with: Reports: None Worsens with: Reports: Movement Associated Symptoms: Reports: Other (agitiation) - Related Data Allergies Allergy/AdvReac Type Severity Reaction Status Date / Time No Known Allergies Allergy Verified 04/26/17 11:33 Home Meds: Home Meds Acetaminophen [Tylenol] 650 mg PO BID 04/10/17 [History] Calcitonin,[place],Synthetic [Calcitonin-[place]] 1 spray INH DAILY 04/10/17 [ History] Citalopram Hydrobromide [Citalopram HBr] 20 mg PO BEDTIME 04/10/17 [History] Erythromycin Base [Erythromycin] 1 applic TOP BEDTIME 04/10/17 [History] Lisinopril [Lisinopril] 10 mg PO DAILY 04/10/17 [History] QUEtiapine [SEROquel] 450 mg PO BEDTIME 04/10/17 [History] metFORMIN HCl [Metformin HCl] 250 mg PO BID 04/10/17 [History] metroNIDAZOLE [metroNIDAZOLE 0.75% Cream] 1 applic TOP DAILY 04/10/17 [History] QUEtiapine Fumarate [Seroquel] 100 mg PO ACBREAKFAST 04/13/17 [History] QUEtiapine [SEROquel XR] 1 tab PO ACLUNCH 04/13/17 [History] Past Medical History Other HEENT History: [place] Cardiovascular History: Reports: Hypertension Genitourinary History: Reports: Retention, Urinary Other Genitourinary History: Being treated for UTI in [place] and urinary obstruction. Smith cath leg bag in place with cloudy juan urine Musculoskeletal History: Reports: Other (See Below) Other Musculoskeletal History: Generalized weakness Neurological History: Reports: Alzheimers Disease Psychiatric History: Reports: Alzheimers Disease, Dementia, Depression, Schizophrenia Endocrine/Metabolic History: Reports: Diabetes, Type II Dermatologic History: Reports: Psoriasis, Seborrheic Dermatitis, Other (See Below) Other Dermatologic History: Toenail Fungus. Rosacia - Past Surgical History HEENT Surgical History: Reports: None Cardiovascular Surgical History: Reports: None Male Surgical History: Reports: None Endocrine Surgical History: Reports: None Neurological Surgical History: Reports: None Musculoskeletal Surgical History: Reports: Other (See Below) Other Musculoskeletal Surgeries/Procedures:: chronic back pain Dermatological Surgical History: Reports: None Social & Family History - Family History Family Medical History: Noncontributory - Tobacco Use Smoking Status *Q: Unknown Ever Smoked Second Hand Smoke Exposure: No - Caffeine Use Caffeine Use: Reports: Coffee - Recreational Drug Use Recreational Drug Use: No - Living Situation & Occupation Living situation: Reports: Extended Care Facility Occupation: Disabled ED ROS GENERAL - Review of Systems Review Of Systems: Unable To Obtain (Mr. Lowe has severe Dementia and Paranoid Schizophrenia, review of patient and records.) Constitutional: Reports: ROS unobtainable Neurological: Reports: Pre-Existing Deficit Psychiatric: Reports: Agitation, Anxiety, Confusion, Hallucinations, Other ( severe paranoid schizophrenia and Dementia) ED EXAM, GENERAL - Physical Exam Exam: See Below Exam Limited By: Altered Mental Status (pre-existing condition) General Appearance: Anxious, Moderate Distress (when touched or examined, becomes very agitated, holloring.), Thin Eye Exam: Bilateral Eye: EOMI, PERRL (pupils constricted.) Ears: Normal External Exam Nose: Normal Inspection, No Blood, Other (nares dry mucous membranes) Throat/Mouth: Normal Teeth, Normal Gums, No Airway Compromise, Other (mouth dry mucous membranes) Head: Other (generalized facial dermatitis with flakey skin, single abrasion with small hemotoma to posterior scalp) Neck: Normal Inspection, Supple, Non-Tender Respiratory/Chest: No Respiratory Distress, Lungs Clear, Normal Breath Sounds, No Accessory Muscle Use, Chest Non-Tender Cardiovascular: Regular Rate, Rhythm, No Murmur Peripheral Pulses: 2+: Radial (L), Radial (R) GI/Abdominal: Normal Bowel Sounds, Soft, Non-Tender, Pelvis Stable (Male) Exam: Deferred, Other (wearing diaper) Rectal (Males) Exam: Deferred Back Exam: Normal Inspection Extremities: Normal Inspection, Normal Range of Motion, Non-Tender, No Pedal Edema, Normal Capillary Refill Neurological: Inattentive, Other (pre-existing condition) Psychiatric: Anxious, Other (pre-exisitng dementia and schizophrenia) Skin Exam: Rash (face with flakey) Lymphatic: No Adenopathy Course - Vital Signs Last Recorded V/S: Last Vital Signs Temp 37.0 C 04/26/17 19:09 Pulse 83 04/26/17 20:02 Resp 14 04/26/17 19:09 BP 133/74 04/26/17 20:02 Pulse Ox 98 04/26/17 19:09 - Orders/Labs/Meds Orders: Medication Orders Albuterol (Proventil Neb Soln) 2.5 mg NEB Q2H PRN PRN Reason: Shortness Of Breath/wheezing Citalopram Hydrobromide (Celexa) 20 mg PO BEDTIME [facility] Erythromycin (Erythromycin 0.5% Ophth Oint) 0 gm EYEBOTH BEDTIME [facility] Last Admin: 04/26/17 20:14 Dose: Not Given Hydromorphone HCl (Dilaudid) 0.5 mg IV Q2H PRN PRN Reason: Pain (severe 7-10) Last Admin: 04/26/17 14:46 Dose: 0.5 mg Sodium Chloride (Normal Saline) 1,000 mls @ 100 mls/hr IV ASDIRECTED [facility] Lisinopril (Prinivil) 10 mg PO DAILY [facility] Lorazepam (Ativan) 0.1 - 1 mg IVPUSH Q2H PRN PRN Reason: Agitation Last Admin: 04/26/17 18:46 Dose: 1 mg Admin: 04/26/17 13:03 Dose: 1 mg Non-Formulary Medication (Quetiapine [Seroquel Xr]) 1 tab PO ACLUNCH [facility] Non-Formulary Medication (Metronidazole [Metronidazole 0.75% Cream]) 1 applic TOP DAILY [facility] Ondansetron HCl (Zofran) 4 mg IV Q4H PRN PRN Reason: Nausea/Vomiting Last Admin: 04/26/17 11:45 Dose: 4 mg Pantoprazole Sodium (Protonix Iv) 40 mg IVPUSH DAILY [facility] Last Admin: 04/26/17 14:42 Dose: 40 mg Quetiapine Fumarate (Seroquel) 450 mg PO BEDTIME [facility] Last Admin: 04/26/17 20:15 Dose: Not Given Quetiapine Fumarate (Seroquel) 100 mg PO DAILY@0730 [facility] Meds: Medications Generic Name Dose Route Start Last Admin Trade Name Freq PRN Reason Stop Dose Admin Albuterol 2.5 mg 04/26/17 12:33 Proventil Neb Soln NEB Q2H PRN Shortness Of Breath/wheezing Citalopram Hydrobromide 20 mg 04/27/17 20:00 Celexa PO BEDTIME [facility] Erythromycin 0 gm 04/26/17 20:00 04/26/17 20:14 Erythromycin 0.5% Ophth Oint EYEBOTH Not Given BEDTIME [facility] Hydromorphone HCl 0.5 mg 04/26/17 12:33 04/26/17 14:46 Dilaudid IV 0.5 mg Q2H PRN Administration Pain (severe 7-10) Sodium Chloride 1,000 mls @ 100 mls/hr 04/26/17 12:33 Normal Saline IV ASDIRECTED [facility] Lisinopril 10 mg 04/27/17 08:00 Prinivil PO DAILY [facility] Lorazepam 0.1 - 1 mg 04/26/17 12:33 04/26/17 18:46 Ativan IVPUSH 1 mg Q2H PRN Administration Agitation Non-Formulary Medication 1 tab 04/27/17 11:00 Quetiapine [Seroquel Xr] PO ACLUNCH [facility] Non-Formulary Medication 1 applic 04/27/17 08:00 Metronidazole [Metronidazole 0.75% Cream] TOP DAILY [facility] Ondansetron HCl 4 mg 04/26/17 12:33 04/26/17 11:45 Zofran IV 4 mg Q4H PRN Administration Nausea/Vomiting Pantoprazole Sodium 40 mg 04/26/17 14:30 04/26/17 14:42 Protonix Iv IVPUSH 40 mg DAILY [facility] Administration Quetiapine Fumarate 450 mg 04/26/17 20:00 04/26/17 20:15 Seroquel PO Not Given BEDTIME [facility] Quetiapine Fumarate 100 mg 04/27/17 07:30 Seroquel PO DAILY@0730 [facility] Discontinued Medications Generic Name Dose Route Start Last Admin Trade Name Xochitl PRN Reason Stop Dose Admin Diazepam 10 mg 04/26/17 10:46 04/26/17 10:46 Valium IM 04/26/17 10:47 10 mg ONETIME ONE Administration Hydromorphone HCl 1 mg 04/26/17 11:38 04/26/17 11:55 Dilaudid IVPUSH 04/26/17 11:39 1 mg ONETIME ONE Administration Hydromorphone HCl Confirm 04/26/17 11:58 04/26/17 13:10 Dilaudid Administered 04/26/17 11:59 Not Given Dose 2 mg .ROUTE .STK-MED ONE Ondansetron HCl 4 mg 04/26/17 11:44 04/26/17 13:10 Zofran IVPUSH 04/26/17 11:45 Not Given ONETIME ONE Ondansetron HCl Confirm 04/26/17 11:59 04/26/17 13:10 Zofran Administered 04/26/17 12:00 Not Given Dose 4 mg .ROUTE .STK-MED ONE - Re-Assessments/Exams Free Text/Narrative Re-Assessment/Exam: 04/26/17 -Workup in the Emergency Room he had a XR of right hip and pelvis; negative for acute bony injury. Head CT without contrast Acute on chronic Subdural Hemorrhage layering along the right side of the falx and along the right tentorium. Extra-axial areas of high density lentiform shaped hemorrhage wihtin the right high frontal region measuring up to 7.5 mm in greatest axial dimension , likely subdural. right to left midline shift of approximately 6mm. -Consulted with Jany Neurosurgeon, who recommends 24 hour observation, repeat Head CT without contrast in am, and appointment with Neurology Clinic in one month. Report this type of bleed can resolve on its own without any intervention or can progress. will need to monitor. Contact was made with Data Communications Analyst, will admit as recommended, keep comfortable and provide recommended care. will contact Guardian to inform of Mr. Mynor condition. Admit Observation to Inpatient Unit at [facility]. Departure - Departure Time of Disposition: 12:20 Disposition: Admitted As Inpatient 64 Condition: Good Clinical Impression: Subdural hemorrhage following injury, Dementia associated with other underlying disease, Paranoid schizophrenia, chronic condition, UTI (urinary tract infection), UTI, Urinary tract infectious disease - Discharge Information - Problem List & Annotations (1) Subdural hemorrhage following injury SNOMED Code(s): 004956336 Code(s): S06.5X9A - TRAUM SUBDR HEM W LOC OF UNSP DURATION, INIT Status: Acute Priority: High Current Visit: Yes Qualifiers: Encounter type: initial encounter Loss of consciousness presence/duration: without LOC Qualified Code(s): S06.5X0A - Traumatic subdural hemorrhage without loss of consciousness, initial encounter (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 Status: Acute Priority: High Current Visit: Yes Qualifiers: Dementia behavioral disturbance: with behavioral disturbance Qualified Code (s): F02.81 - Dementia in other diseases classified elsewhere with behavioral disturbance (3) Paranoid schizophrenia, chronic condition SNOMED Code(s): 20907423 Code(s): F20.0 - PARANOID SCHIZOPHRENIA Status: Acute Priority: High Current Visit: Yes (4) UTI (urinary tract infection) SNOMED Code(s): 61473216 Code(s): N39.0 - URINARY TRACT INFECTION, SITE NOT SPECIFIED Status: Acute Priority: High Current Visit: Yes Qualifiers: Urinary tract infection type: site unspecified Hematuria presence: without hematuria Qualified Code(s): N39.0 - Urinary tract infection, site not specified
[2017-04-27] MEDS ORDERED: Menthol/Zinc Oxide Ointment 113 GM Tube TOP ONE (01:03)
[2017-04-27] MEDS: HYDROmorphone 2 MG/ML Syringe IV PRN (01:11)
[2017-04-27] MEDS ORDERED: Morphine 2 MG/ML Syringe IVPUSH ONE (02:19)
[2017-04-27] MEDS ORDERED: diphenhydrAMINE 50 MG/ML SDV IVPUSH ONE (02:19)
[2017-04-27] MEDS: Morphine 2 MG/ML Syringe IVPUSH PRN ×5 (05:19→15:29)
[2017-04-27] MEDS: Lisinopril 10 MG Tab PO SCH ×3 (07:49→22:19)
[2017-04-27] MEDS: Pantoprazole 40 MG Vial IVPUSH SCH (07:49)
[2017-04-27] MEDS: Dextrose 5% in Water 1,000 ML IV SCH (09:00)
[2017-04-27] MEDS: LORazepam 2 MG/ML MDV IVPUSH PRN ×3 (09:04→15:45)
--- NOTE | 2017-04-27 09:40 | PCM.PN ---
- General Info Date of Service: 04/27/17 Subjective Update: Patient resting in bed comfortably. Easily arousable and responds to commands. Patient has a history of difficulty hearing and difficulty focusing visually. - Review of Systems General: Reports: No Symptoms HEENT: Reports: No Symptoms Pulmonary: Reports: No Symptoms Cardiovascular: Reports: No Symptoms Gastrointestinal: Reports: No Symptoms Genitourinary: Reports: No Symptoms Musculoskeletal: Reports: No Symptoms Skin: Reports: Other (seborrheic dermatitis) Neurological: Reports: Other (recent falls) Psychiatric: Reports: Mood Lability, Agitation, Hallucinations - Patient Data Vitals - Most Recent: Last Vital Signs Temp 36.3 C 04/27/17 07:50 Pulse 77 04/27/17 07:50 Resp 20 04/27/17 07:50 BP 158/55 H 04/27/17 08:08 Pulse Ox 98 04/27/17 07:50 Weight - Most Recent: 70.307 kg I&O - Last 24 Hours: Intake & Output 04/26/17 04/27/17 04/27/17 22:59 06:59 14:59 Intake Total 620 Output Total 350 Balance 270 Lab Results Last 24 Hours: Laboratory Results - last 24 hr 04/27/17 04/27/17 Range/Units 07:20 07:20 WBC 5.3 (4.0-11.0) K/uL RBC 3.97 L (4.50-6.50) M/uL Hgb 12.5 L (13.0-18.0) g/dL Hct 38.0 L (40.0-54.0) % MCV 96 (76-96) fL MCH 31.5 (27.0-32.0) pg MCHC 32.9 (31.0-35.0) g/dL RDW 12.6 (11.0-16.0) % Plt Count 172 D (150-400) K/uL MPV 9.7 (6.0-10.0) fL Neut % (Auto) 52.9 (45.0-70.0) % Lymph % (Auto) 25.8 (20.0-40.0) % [place] % (Auto) 14.3 H (3.0-10.0) % Eos % (Auto) 6.4 H (1.0-5.0) % Baso % (Auto) 0.6 H (0.0-0.5) % Neut # (Auto) 2.81 (2.00-7.50) K/uL Lymph # (Auto) 1.37 L (1.50-4.00) K/uL [place] # (Auto) 0.76 (0.20-0.80) K/uL Eos # (Auto) 0.34 (0.04-0.40) K/uL Baso # (Auto) 0.03 (0.02-0.10) K/uL Sodium 141 (136-145) mmol/L Potassium 5.0 (3.5-5.1) mmol/L Chloride 107 (98-107) mmol/L Carbon Dioxide 28.8 (21.0-32.0) mmol/L Anion Gap 10.2 (5.0-15.0) mmol/L BUN 27 H (8-26) mg/dL Creatinine 1.27 (0.70-1.30) mg/dL Est Cr Clr Drug Dosing TNP Estimated GFR (MDRD) 54 L (>60) MLS/MIN BUN/Creatinine Ratio 21.3 (6-25) Glucose 131 H (74-100) mg/dL Calcium 8.8 (8.5-10.1) mg/dL Med Orders - Current: Current Medications Albuterol (Proventil Neb Soln) 2.5 mg NEB Q2H PRN PRN Reason: Shortness Of Breath/wheezing Last Admin: 04/27/17 01:15 Dose: 2.5 mg Citalopram Hydrobromide (Celexa) 20 mg PO BEDTIME [facility] Erythromycin (Erythromycin 0.5% Ophth Oint) 0 gm EYEBOTH BEDTIME [facility] Last Admin: 04/26/17 20:14 Dose: Not Given Dextrose/Water (Dextrose 5% In Water) 1,000 mls @ 100 mls/hr IV ASDIRECTED [facility] Lisinopril (Prinivil) 10 mg PO DAILY [facility] Last Admin: 04/27/17 08:08 Dose: Not Given Lorazepam (Ativan) 0.1 - 1 mg IVPUSH Q2H PRN PRN Reason: Agitation Last Admin: 04/27/17 09:04 Dose: 1 mg Morphine Sulfate (Morphine) 2 mg IVPUSH Q2H PRN PRN Reason: Pain Last Admin: 04/27/17 08:13 Dose: 2 mg (Metronidazole [ Metronidazole 0.75% Cream] 1 Applic) 1 applic TOP DAILY [facility] Ondansetron HCl (Zofran) 4 mg IV Q4H PRN PRN Reason: Nausea/Vomiting Last Admin: 04/26/17 11:45 Dose: 4 mg Pantoprazole Sodium (Protonix Iv) 40 mg IVPUSH DAILY [facility] Last Admin: 04/27/17 07:49 Dose: 40 mg Quetiapine Fumarate (Seroquel) 450 mg PO BEDTIME [facility] Last Admin: 04/27/17 01:30 Dose: 450 mg Quetiapine Fumarate (Seroquel) 200 mg PO DAILY@0700 [facility] Quetiapine Fumarate (Seroquel) 200 mg PO DAILY@1100 [facility] Discontinued Medications Calamine/Phenol (Calmoseptine) Confirm Administered Dose 113 gm TOP .STK-MED ONE Stop: 04/27/17 01:04 Last Admin: 04/27/17 01:10 Dose: 1 applic Diazepam (Valium) 10 mg IM ONETIME ONE Stop: 04/26/17 10:47 Last Admin: 04/26/17 10:46 Dose: 10 mg Diphenhydramine HCl (Benadryl) 25 mg IVPUSH ONETIME ONE Stop: 04/27/17 02:20 Last Admin: 04/27/17 02:46 Dose: 25 mg Hydromorphone HCl (Dilaudid) 1 mg IVPUSH ONETIME ONE Stop: 04/26/17 11:39 Last Admin: 04/26/17 11:55 Dose: 1 mg Hydromorphone HCl (Dilaudid) Confirm Administered Dose 2 mg .ROUTE .STK-MED ONE Stop: 04/26/17 11:59 Last Admin: 04/26/17 13:10 Dose: Not Given Hydromorphone HCl (Dilaudid) 0.5 mg IV Q2H PRN PRN Reason: Pain (severe 7-10) Last Admin: 04/27/17 01:11 Dose: 0.5 mg Sodium Chloride (Normal Saline) 1,000 mls @ 100 mls/hr IV ASDIRECTED [facility] Last Admin: 04/27/17 01:00 Dose: 100 mls/hr Morphine Sulfate (Morphine) 2 mg IVPUSH ONETIME ONE Stop: 04/27/17 02:20 Last Admin: 04/27/17 03:08 Dose: Not Given Ondansetron HCl (Zofran) 4 mg IVPUSH ONETIME ONE Stop: 04/26/17 11:45 Last Admin: 04/26/17 13:10 Dose: Not Given Ondansetron HCl (Zofran) Confirm Administered Dose 4 mg .ROUTE .STK-MED ONE Stop: 04/26/17 12:00 Last Admin: 04/26/17 13:10 Dose: Not Given Quetiapine Fumarate (Seroquel) 100 mg PO DAILY@0730 [facility] Last Admin: 04/27/17 08:08 Dose: Not Given - Exam General: Alert HEENT: Pupils Equal, Pupils Reactive, EOMI Neck: Supple Lungs: Clear to Auscultation, Normal Respiratory Effort Cardiovascular: Regular Rate, Regular Rhythm GI/Abdominal Exam: Normal Bowel Sounds Extremities: Normal Inspection Skin: Warm, Dry, Intact Neurological: No New Focal Deficit Psy/Mental Status: Anxious, Hallucinations - Problem List & Annotations (1) Paranoid schizophrenia, chronic condition SNOMED Code(s): 26021321 Code(s): F20.0 - PARANOID SCHIZOPHRENIA Status: Acute Priority: High Current Visit: Yes (2) Subdural hemorrhage following injury SNOMED Code(s): 006856398 Code(s): S06.5X9A - TRAUM SUBDR HEM W LOC OF UNSP DURATION, INIT Status: Acute Priority: High Current Visit: Yes Qualifiers: Encounter type: initial encounter Loss of consciousness presence/duration: without LOC Qualified Code(s): S06.5X0A - Traumatic subdural hemorrhage without loss of consciousness, initial encounter (3) Incontinence overflow, urine SNOMED Code(s): 076536827 Code(s): N39.490 - OVERFLOW INCONTINENCE Status: Acute Current Visit: No - Problem List Review Problem List Initiated/Reviewed/Updated: Yes - My Orders Last 24 Hours: My Active Orders 04/27/17 09:00 Dextrose 5% in Water 1,000 ml IV ASDIRECTED 04/27/17 09:38 Change Admitting Physician [ADT] Routine Patient Status [ADT] Routine - Plan Plan:: Assessment and plan: History of present Illness/injury: Fall, Subdural Hemorrhage, Schizophrenia, UTI This is a 86 year old male 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 Lowe has fallen twice yesterday and once this morning, when it was observed his falling from an unsteady gait to the floor, hit the right hip and back of his head. -Workup in the Emergency Room he had a XR of right hip and pelvis; negative for acute bony injury. Head CT without contrast Acute on chronic Subdural Hemorrhage layering along the right side of the falx and along the right tentorium. Extra-axial areas of high density lentiform shaped hemorrhage within the right high frontal region measuring up to 7.5 mm in greatest axial dimension , likely subdural. right to left midline shift of approximately 6mm. -Consulted with Neurosurgeon who recommends 24 hour observation, repeat Head CT without contrast in am, and appointment with Neurology Clinic in one month. Report this type of bleed can resolve on its own without any intervention or can progress. will need to monitor. Contact was made with [employer] Smearer, will admit as recommended, keep comfortable and provide recommended care. will contact Guardian to inform of Mr. Lowe's condition. He is currently being treated for bladder infection. He has pre-existing severe dementia, paranoid schizophrenia with hallucination, UTI, psoriasis and HTN. Guardian appointed and [employer] Smearer manage his care. He is DNR/DNI Acute on Chronic Subdural Hemorrhage: -24 hours observation -repeat Head CT without contrast in am -Neurology Clinic appointment in one month -medicate for pain; Dilaudid 0.5 to 1 mg IV every 2 hours as needed for pain -medicate for agitation; Ativan 0.5 to 1 mg IV every 2 hours as needed for agitation -IV fluids Normal Saline 100ml/hr -neuro checks every 4 hours x 24 hours Schizophrenia; paranoid with delirium, agitation -continue medications as prescribed Hypertension -continue Lisinopril 20 po daily Urinary Tract Infection -continue antibiotic -push fluids Atopic dermatitis -skin care as directed. -Metronizole topical as directed Maintenance Issues -DVT prophylaxis; contraindicated due to active subdural hemorrhage -GI Prophylaxis; Protonix 40 mg IV -Nutrition; regular soft diet -Carpio Catheter-chronic indwelling carpio catheter CODE STATUS; DNR/DNI Admission Justification; This patient will be admitted for Observation services. It is reasonably expected the patient will not require inpatient services that span a period time over 2 midnights. I reasonably expect this patient to be discharge or transferred within 2 midnights [facility]. Disposition ; anticipate discharge to [facility] after Observation services. Primary Care Physician; Dr. Gonzalez [facility] Hospitalist; Ashutosh Mclean CNP 04/27/17 Patient changed to admit status. Repeat CT head shows no change compared to previous CT. We will continue pain management as needed and reassess Neurological status as directed and scheduled.
[2017-04-27] MEDS: METRONIDAZOLE TOP SCH (10:08)
[2017-04-27] MEDS ORDERED: QUETIAPINE PO SCH (11:00)
[2017-04-27] MEDS: Sulfamethoxazole/Trimethoprim 10 ML in Dextrose 5% in Water 250 ML IV SCH ×4 (13:50→20:14)
[2017-04-27] MEDS ORDERED: Haloperidol Lactate 5 MG/ML SDV IM PRN (16:25)
[2017-04-27] MEDS: metFORMIN 500 MG Tab PO SCH (20:00)
[2017-04-27] MEDS: Citalopram 20 MG Tab PO SCH (20:00)
[2017-04-27] MEDS ORDERED: Sulfamethoxazole/Trimethoprim 800-160 MG Tab PO SCH (20:00)
[2017-04-27] MEDS ORDERED: Erythromycin Base 0.5% Ophth Oint 3.5 GM Tube EYEBOTH SCH (20:00)
--- NOTE | 2017-04-27 22:25 | CT ---
DATE OF SERVICE: 04/27/2017 CLINICAL DATA: Monitor subdural hemorrhage. Repeat CT in [address] Comparison is made to a prior exam dated 04/26/2017. The right-sided chronic subdural hematoma with acute re-bleed is again seen. No change in volume. No change in mass effect. IMPRESSION: Stable exam. No new abnormalities. [id number] [facility]
[2017-04-27] MEDS: Haloperidol Lactate 5 MG/ML SDV IM ONE ×2 (22:30→23:15)
[2017-04-28] MEDS ORDERED: diphenhydrAMINE 50 MG/ML SDV IM ONE (01:51)
[2017-04-28] MEDS ORDERED: LORazepam 2 MG/ML MDV IM ONE (01:54)
[2017-04-28] MEDS: Erythromycin Base 0.5% Ophth Oint 3.5 GM Tube EYEBOTH SCH ×2 (06:01→20:48)
[2017-04-28] MEDS: LORazepam 2 MG/ML MDV IVPUSH PRN ×3 (07:41→23:00)
[2017-04-28] MEDS: Calcitonin (Salmon) Nasal Spray 3.7 ML Bottle NAS SCH (08:05)
[2017-04-28] MEDS: metFORMIN 500 MG Tab PO SCH ×2 (08:05→20:48)
[2017-04-28] MEDS: Lisinopril 10 MG Tab PO SCH ×2 (08:05→20:48)
[2017-04-28] MEDS: Morphine 2 MG/ML Syringe IVPUSH PRN ×3 (08:14→20:51)
[2017-04-28] MEDS: Pantoprazole 40 MG Vial IVPUSH SCH (08:31)
[2017-04-28] MEDS: Sulfamethoxazole/Trimethoprim 10 ML in Dextrose 5% in Water 250 ML IV SCH ×4 (10:02→21:05)
[2017-04-28] MEDS: METRONIDAZOLE TOP SCH (10:28)
--- NOTE | 2017-04-28 10:29 | PCM.PN ---
- General Info Date of Service: 04/28/17 Subjective Update: Patient is currently bed bound and not responsive to verbal stimuli. Patient has episodes of aggressiveness and has not been up to eat. At the same time with his inability to eat we are not able to continue with his Seroquel which may increase the patients internal stimuli. Patient has been aggressive at times and even hitting and grabbing at nursing staff for his regular daily cares. Patient is not oriented to location or place. - Review of Systems Pulmonary: Reports: No Symptoms Cardiovascular: Reports: No Symptoms Gastrointestinal: Reports: No Symptoms Skin: Reports: Other (seborrheic dermatitis) Neurological: Reports: Confusion Psychiatric: Reports: Confusion, Mood Lability, Agitation, Hallucinations - Patient Data Vitals - Most Recent: Last Vital Signs Temp 37.2 C 04/27/17 12:00 Pulse 77 04/27/17 12:00 Resp 16 04/28/17 04:00 BP 145/62 H 04/27/17 12:00 Pulse Ox 95 04/27/17 12:00 Weight - Most Recent: 70.307 kg I&O - Last 24 Hours: Intake & Output 04/27/17 04/28/17 04/28/17 22:59 06:59 14:59 Intake Total 1200 Output Total 1600 1500 Balance -400 -1500 Med Orders - Current: Current Medications Albuterol (Proventil Neb Soln) 2.5 mg NEB Q2H PRN PRN Reason: Shortness Of Breath/wheezing Last Admin: 04/27/17 01:15 Dose: 2.5 mg Calcitonin [place] (Miacalcin Nasal [place]) 3.7 ml MIKY DAILY [facility] Last Admin: 04/28/17 08:05 Dose: Not Given Citalopram Hydrobromide (Celexa) 20 mg PO BEDTIME [facility] Last Admin: 04/27/17 20:00 Dose: Not Given Erythromycin (Erythromycin 0.5% Ophth Oint) 0 gm EYEBOTH BEDTIME [facility] Last Admin: 04/28/17 06:01 Dose: Not Given Haloperidol Lactate (Haldol) 5 mg IM ASDIRECTED PRN PRN Reason: AGITATION Last Admin: 04/27/17 16:10 Dose: 5 mg Dextrose/Water (Dextrose 5% In Water) 1,000 mls @ 100 mls/hr IV ASDIRECTED [facility] Last Admin: 04/27/17 09:00 Dose: 100 mls/hr Trimethoprim/Sulfamethoxazole (10 ml/ Dextrose/Water) 260 mls @ 250 mls/hr IV Q12H [facility] Stop: 04/29/17 06:01 Last Admin: 04/28/17 10:02 Dose: 250 mls/hr Lisinopril (Prinivil) 10 mg PO BID [facility] Last Admin: 04/28/17 08:05 Dose: Not Given Lorazepam (Ativan) 0.1 - 2 mg IVPUSH Q2H PRN PRN Reason: Agitation Last Admin: 04/28/17 07:41 Dose: 2 mg Metformin HCl (Glucophage) 250 mg PO BID [facility] Last Admin: 04/28/17 08:05 Dose: Not Given Morphine Sulfate (Morphine) 2 mg IVPUSH Q2H PRN PRN Reason: Pain Last Admin: 04/28/17 08:14 Dose: 2 mg (Metronidazole [ Metronidazole 0.75% Cream] 1 Applic) 1 applic TOP DAILY [facility] Last Admin: 04/28/17 10:28 Dose: 1 applic Ondansetron HCl (Zofran) 4 mg IV Q4H PRN PRN Reason: Nausea/Vomiting Last Admin: 04/26/17 11:45 Dose: 4 mg Pantoprazole Sodium (Protonix Iv) 40 mg IVPUSH DAILY [facility] Last Admin: 04/28/17 08:31 Dose: 40 mg Quetiapine Fumarate (Seroquel) 450 mg PO BEDTIME [facility] Last Admin: 04/27/17 20:00 Dose: Not Given Quetiapine Fumarate (Seroquel) 200 mg PO DAILY@1100 [facility] Last Admin: 04/27/17 12:39 Dose: Not Given Quetiapine Fumarate (Seroquel) 200 mg PO DAILY@0700 [facility] Last Admin: 04/28/17 08:05 Dose: Not Given Discontinued Medications Calamine/Phenol (Calmoseptine) Confirm Administered Dose 113 gm TOP .STK-MED ONE Stop: 04/27/17 01:04 Last Admin: 04/27/17 01:10 Dose: 1 applic Diazepam (Valium) 10 mg IM ONETIME ONE Stop: 04/26/17 10:47 Last Admin: 04/26/17 10:46 Dose: 10 mg Diphenhydramine HCl (Benadryl) 25 mg IVPUSH ONETIME ONE Stop: 04/27/17 02:20 Last Admin: 04/27/17 02:46 Dose: 25 mg Diphenhydramine HCl (Benadryl) 50 mg IM ONETIME ONE Stop: 04/28/17 01:52 Last Admin: 04/27/17 23:15 Dose: 50 mg Haloperidol Lactate (Haldol) 5 mg IM ONETIME ONE Stop: 04/28/17 01:51 Last Admin: 04/27/17 23:15 Dose: 5 mg Hydromorphone HCl (Dilaudid) 1 mg IVPUSH ONETIME ONE Stop: 04/26/17 11:39 Last Admin: 04/26/17 11:55 Dose: 1 mg Hydromorphone HCl (Dilaudid) Confirm Administered Dose 2 mg .ROUTE .STK-MED ONE Stop: 04/26/17 11:59 Last Admin: 04/26/17 13:10 Dose: Not Given Hydromorphone HCl (Dilaudid) 0.5 mg IV Q2H PRN PRN Reason: Pain (severe 7-10) Last Admin: 04/27/17 01:11 Dose: 0.5 mg Sodium Chloride (Normal Saline) 1,000 mls @ 100 mls/hr IV ASDIRECTED [facility] Last Admin: 04/27/17 01:00 Dose: 100 mls/hr Lisinopril (Prinivil) 10 mg PO DAILY [facility] Last Admin: 04/27/17 08:08 Dose: Not Given Lorazepam (Ativan) 0.1 - 1 mg IVPUSH Q2H PRN PRN Reason: Agitation Last Admin: 04/27/17 14:40 Dose: 1 mg Lorazepam (Ativan) 2 mg IM ONETIME ONE Stop: 04/28/17 01:55 Last Admin: 04/27/17 23:15 Dose: 2 mg Morphine Sulfate (Morphine) 2 mg IVPUSH ONETIME ONE Stop: 04/27/17 02:20 Last Admin: 04/27/17 03:08 Dose: Not Given Ondansetron HCl (Zofran) 4 mg IVPUSH ONETIME ONE Stop: 04/26/17 11:45 Last Admin: 04/26/17 13:10 Dose: Not Given Ondansetron HCl (Zofran) Confirm Administered Dose 4 mg .ROUTE .STK-MED ONE Stop: 04/26/17 12:00 Last Admin: 04/26/17 13:10 Dose: Not Given Quetiapine Fumarate (Seroquel) 100 mg PO DAILY@0730 [facility] Last Admin: 04/27/17 08:08 Dose: Not Given Quetiapine Fumarate (Seroquel) 200 mg PO DAILY@0700 [facility] - Exam General: Obtunded HEENT: Pupils Equal, Pupils Reactive Neck: Supple Lungs: Clear to Auscultation, Normal Respiratory Effort Cardiovascular: Regular Rate, Regular Rhythm GI/Abdominal Exam: Normal Bowel Sounds, Soft Extremities: Normal Inspection Skin: Other (seborrheic dermatitis of the scalp and face) Psy/Mental Status: Labile Mood, Anxious, Agitated, Hallucinations - Problem List & Annotations (1) Paranoid schizophrenia, chronic condition SNOMED Code(s): 76383524 Code(s): F20.0 - PARANOID SCHIZOPHRENIA Status: Acute Priority: High (2) Subdural hemorrhage following injury SNOMED Code(s): 439806827 Code(s): S06.5X9A - TRAUM SUBDR HEM W LOC OF UNSP DURATION, INIT Status: Resolved Priority: High Qualifiers: Encounter type: subsequent encounter Loss of consciousness presence/ duration: without LOC Qualified Code(s): S06.5X0D - Traumatic subdural hemorrhage without loss of consciousness, subsequent encounter (3) Incontinence overflow, urine SNOMED Code(s): 524231761 Code(s): N39.490 - OVERFLOW INCONTINENCE Status: Acute Priority: Low - Problem List Review Problem List Initiated/Reviewed/Updated: Yes - My Orders Last 24 Hours: My Active Orders 04/27/17 16:01 LORazepam [Ativan] 0.1 - 2 mg IVPUSH Q2H PRN 04/27/17 16:25 Haloperidol Lactate [Haldol] 5 mg IM ASDIRECTED PRN 04/27/17 20:00 Sulfamethoxazole/Trimethoprim [Septra IV] 10 ml Dextrose 5% in Water 250 ml IV Q12H - Plan Plan:: Assessment and plan: History of present Illness/injury: Fall, Subdural Hemorrhage, Schizophrenia, UTI This is a 86 year old male present to ER from [facility] where he is a detention resident. The Nurse Filter Tip Inspector reports Mr. Lowe has fallen twice yesterday and once this morning, when it was observed his falling from an unsteady gait to the floor, hit the right hip and back of his head. -Workup in the Emergency Room he had a XR of right hip and pelvis; negative for acute bony injury. Head CT without contrast Acute on chronic Subdural Hemorrhage layering along the right side of the falx and along the right tentorium. Extra-axial areas of high density lentiform shaped hemorrhage within the right high frontal region measuring up to 7.5 mm in greatest axial dimension , likely subdural. right to left midline shift of approximately 6mm. -Consulted with [facility] Neurosurgeon who recommends 24 hour observation, repeat Head CT without contrast in am, and appointment with Neurology Clinic in one month. Report this type of bleed can resolve on its own without any intervention or can progress. will need to monitor. Contact was made with Inspection And Testing Supervisor, will admit as recommended, keep comfortable and provide recommended care. will contact Guardian to inform of Mr. Lowe's condition. He is currently being treated for bladder infection. He has pre-existing severe dementia, paranoid schizophrenia with hallucination, UTI, psoriasis and HTN. Guardian appointed and Inspection And Testing Supervisor manage his care. He is DNR/DNI Acute on Chronic Subdural Hemorrhage: -24 hours observation -repeat Head CT without contrast in am -Neurology Clinic appointment in one month -medicate for pain; Dilaudid 0.5 to 1 mg IV every 2 hours as needed for pain -medicate for agitation; Ativan 0.5 to 1 mg IV every 2 hours as needed for agitation -IV fluids Normal Saline 100ml/hr -neuro checks every 4 hours x 24 hours Schizophrenia; paranoid with delirium, agitation -continue medications as prescribed Hypertension -continue Lisinopril 20 po daily Urinary Tract Infection -continue antibiotic -push fluids Atopic dermatitis -skin care as directed. -Metronizole topical as directed Maintenance Issues -DVT prophylaxis; contraindicated due to active subdural hemorrhage -GI Prophylaxis; Protonix 40 mg IV -Nutrition; regular soft diet -Carpio Catheter-chronic indwelling carpio catheter CODE STATUS; DNR/DNI Admission Justification; This patient will be admitted for Observation services. It is reasonably expected the patient will not require inpatient services that span a period time over 2 midnights. I reasonably expect this patient to be discharge or transferred within 2 midnights [facility]. Disposition ; anticipate discharge to [facility] after Observation services. Primary Care Physician; Dr. Gonzalez, [facility] Hospitalist; Ashutosh Mclean CNP 04/27/17 Patient changed to admit status. Repeat CT head shows no change compared to previous CT. We will continue pain management as needed and reassess Neurological status as directed and scheduled. 04/28/17 Pain management has increased sedation and patient has not been able to take his Seroquel. Discussed plan with care team and Pharmacy. Patient agitation has been managed with Haldol as a last resort. We will try daily cares and try to feed and administer daily medications for Schizophrenia. Family and Guardian in contact with Inspection And Testing Supervisor and Care team. We will continue current cares and management and prevention of falls due to the subdural hematoma. The concern is that patient is very active and confused at the same time which has caused him to fall mulitple times. If he has another major fall his subdural hematoma may worsen. We are limited in managing his falls with some sedation medications or anti-psychotics that are injectable ie Haldol when he is very agitated and aggressive hitting and grabbing nursing staff.
[2017-04-28] MEDS: Haloperidol Lactate 5 MG/ML SDV IM PRN (15:56)
[2017-04-28] MEDS: Citalopram 20 MG Tab PO SCH (20:48)
[2017-04-29] MEDS: Morphine 2 MG/ML Syringe IVPUSH PRN ×2 (01:16→06:09)
[2017-04-29] MEDS: LORazepam 2 MG/ML MDV IVPUSH PRN ×2 (03:58→23:00)
[2017-04-29] MEDS: Dextrose 5% in Water 1,000 ML IV SCH ×2 (05:05→15:18)
[2017-04-29] MEDS: Calcitonin (Salmon) Nasal Spray 3.7 ML Bottle NAS SCH (09:05)
[2017-04-29] MEDS: metFORMIN 500 MG Tab PO SCH ×2 (09:05→21:48)
[2017-04-29] MEDS: METRONIDAZOLE TOP SCH (09:05)
[2017-04-29] MEDS: Lisinopril 10 MG Tab PO SCH ×2 (09:05→21:48)
[2017-04-29] MEDS: Pantoprazole 40 MG Vial IVPUSH SCH (09:14)
--- NOTE | 2017-04-29 13:30 | PCM.PN ---
- General Info Date of Service: 04/29/17 Subjective Update: This is a 86yo M who was able to take his morning medications and eat one pancake with the assistance of his nurse. He then fell back asleep soundly. Family have arrived today and a meeting is planned for the Guardian, and family with the care team to plan for management and treatment. Functional Status: Reports: Tolerating Diet (just breakfast and did take meds.) - Review of Systems General: Reports: Fatigue Systems Review Comment:: Unable to obtain a good ROS as patient has difficulty hearing and unable to read print very well. He does have a lot of internal stimuli and increased mumbling to himself since he has been off of his Seroquel. - Patient Data Vitals - Most Recent: Last Vital Signs Temp 36.6 C 04/29/17 12:40 Pulse 67 04/29/17 12:45 Resp 16 04/29/17 12:45 BP 72/32 L 04/29/17 12:45 Pulse Ox 95 04/29/17 12:40 Weight - Most Recent: 70.307 kg I&O - Last 24 Hours: Intake & Output 04/28/17 04/29/17 04/29/17 22:59 06:59 14:59 Output Total 1200 450 Balance -1200 -450 [place] Results Last 24 Hours: Microbiology 04/27/17 Unknown MRSA Surveillance Culture - Final Nasal, Unspecified NO MRSA ISOLATED Med Orders - Current: Current Medications Albuterol (Proventil Neb Soln) 2.5 mg NEB Q2H PRN PRN Reason: Shortness Of Breath/wheezing Last Admin: 04/27/17 01:15 Dose: 2.5 mg Calcitonin [place] (Miacalcin Nasal [place]) 3.7 ml MIKY DAILY [facility] Last Admin: 04/29/17 09:05 Dose: Not Given Citalopram Hydrobromide (Celexa) 20 mg PO BEDTIME [facility] Last Admin: 04/28/17 20:48 Dose: Not Given Erythromycin (Erythromycin 0.5% Ophth Oint) 0 gm EYEBOTH BEDTIME [facility] Last Admin: 04/28/17 20:48 Dose: Not Given Haloperidol Lactate (Haldol) 2 mg IM Q4H PRN PRN Reason: AGITATION Last Admin: 04/28/17 15:56 Dose: 2 mg Dextrose/Water (Dextrose 5% In Water) 1,000 mls @ 100 mls/hr IV ASDIRECTED [facility] Last Admin: 04/29/17 05:05 Dose: 100 mls/hr Lisinopril (Prinivil) 10 mg PO BID [facility] Last Admin: 04/29/17 09:05 Dose: Not Given Lorazepam (Ativan) 0.1 - 2 mg IVPUSH Q2H PRN PRN Reason: Agitation Last Admin: 04/29/17 03:58 Dose: 2 mg Metformin HCl (Glucophage) 250 mg PO BID [facility] Last Admin: 04/29/17 09:05 Dose: Not Given Morphine Sulfate (Morphine) 2 mg IVPUSH Q2H PRN PRN Reason: Pain Last Admin: 04/29/17 06:09 Dose: 2 mg (Metronidazole [ Metronidazole 0.75% Cream] 1 Applic) 1 applic TOP DAILY [facility] Last Admin: 04/29/17 09:05 Dose: 1 applic Ondansetron HCl (Zofran) 4 mg IV Q4H PRN PRN Reason: Nausea/Vomiting Last Admin: 04/26/17 11:45 Dose: 4 mg Pantoprazole Sodium (Protonix Iv) 40 mg IVPUSH DAILY [facility] Last Admin: 04/29/17 09:14 Dose: 40 mg Quetiapine Fumarate (Seroquel) 450 mg PO BEDTIME [facility] Last Admin: 04/28/17 20:50 Dose: Not Given Quetiapine Fumarate (Seroquel) 200 mg PO DAILY@1100 [facility] Last Admin: 04/28/17 13:40 Dose: Not Given Quetiapine Fumarate (Seroquel) 200 mg PO DAILY@0700 [facility] Last Admin: 04/29/17 08:33 Dose: 200 mg Discontinued Medications Calamine/Phenol (Calmoseptine) Confirm Administered Dose 113 gm TOP .STK-MED ONE Stop: 04/27/17 01:04 Last Admin: 04/27/17 01:10 Dose: 1 applic Diazepam (Valium) 10 mg IM ONETIME ONE Stop: 04/26/17 10:47 Last Admin: 04/26/17 10:46 Dose: 10 mg Diphenhydramine HCl (Benadryl) 25 mg IVPUSH ONETIME ONE Stop: 04/27/17 02:20 Last Admin: 04/27/17 02:46 Dose: 25 mg Diphenhydramine HCl (Benadryl) 50 mg IM ONETIME ONE Stop: 04/28/17 01:52 Last Admin: 04/27/17 23:15 Dose: 50 mg Haloperidol Lactate (Haldol) 5 mg IM ASDIRECTED PRN PRN Reason: AGITATION Last Admin: 04/27/17 16:10 Dose: 5 mg Haloperidol Lactate (Haldol) 5 mg IM ONETIME ONE Stop: 04/28/17 01:51 Last Admin: 04/27/17 23:15 Dose: 5 mg Hydromorphone HCl (Dilaudid) 1 mg IVPUSH ONETIME ONE Stop: 04/26/17 11:39 Last Admin: 04/26/17 11:55 Dose: 1 mg Hydromorphone HCl (Dilaudid) Confirm Administered Dose 2 mg .ROUTE .STK-MED ONE Stop: 04/26/17 11:59 Last Admin: 04/26/17 13:10 Dose: Not Given Hydromorphone HCl (Dilaudid) 0.5 mg IV Q2H PRN PRN Reason: Pain (severe 7-10) Last Admin: 04/27/17 01:11 Dose: 0.5 mg Sodium Chloride (Normal Saline) 1,000 mls @ 100 mls/hr IV ASDIRECTED [facility] Last Admin: 04/27/17 01:00 Dose: 100 mls/hr Trimethoprim/Sulfamethoxazole (10 ml/ Dextrose/Water) 260 mls @ 250 mls/hr IV Q12H [facility] Stop: 04/29/17 06:01 Last Admin: 04/28/17 21:05 Dose: 250 mls/hr Lisinopril (Prinivil) 10 mg PO DAILY [facility] Last Admin: 04/27/17 08:08 Dose: Not Given Lorazepam (Ativan) 0.1 - 1 mg IVPUSH Q2H PRN PRN Reason: Agitation Last Admin: 04/27/17 14:40 Dose: 1 mg Lorazepam (Ativan) 2 mg IM ONETIME ONE Stop: 04/28/17 01:55 Last Admin: 04/27/17 23:15 Dose: 2 mg Morphine Sulfate (Morphine) 2 mg IVPUSH ONETIME ONE Stop: 04/27/17 02:20 Last Admin: 04/27/17 03:08 Dose: Not Given Ondansetron HCl (Zofran) 4 mg IVPUSH ONETIME ONE Stop: 04/26/17 11:45 Last Admin: 04/26/17 13:10 Dose: Not Given Ondansetron HCl (Zofran) Confirm Administered Dose 4 mg .ROUTE .STK-MED ONE Stop: 04/26/17 12:00 Last Admin: 04/26/17 13:10 Dose: Not Given Quetiapine Fumarate (Seroquel) 100 mg PO DAILY@0730 [facility] Last Admin: 04/27/17 08:08 Dose: Not Given Quetiapine Fumarate (Seroquel) 200 mg PO DAILY@0700 [facility] - Exam General: Mild Distress, Obtunded HEENT: Pupils Equal, Pupils Reactive Neck: Supple Lungs: Clear to Auscultation, Normal Respiratory Effort Cardiovascular: Regular Rate, Regular Rhythm GI/Abdominal Exam: Normal Bowel Sounds, Soft, Non-Tender Back Exam: Normal Inspection Extremities: Normal Inspection Peripheral Pulses: 2+: Dorsalis Pedis (L), Dorsalis Pedis (R) Skin: Other (seborrheic dermatitis of scalp and face) Neurological: No New Focal Deficit Psy/Mental Status: Labile Mood, Hallucinations - Problem List & Annotations (1) Paranoid schizophrenia, chronic condition SNOMED Code(s): 57380136 Code(s): F20.0 - PARANOID SCHIZOPHRENIA Status: Acute Priority: High (2) Subdural hemorrhage following injury SNOMED Code(s): 495949886 Code(s): S06.5X9A - TRAUM SUBDR HEM W LOC OF UNSP DURATION, INIT Status: Resolved Priority: High Qualifiers: Encounter type: subsequent encounter Loss of consciousness presence/ duration: without LOC Qualified Code(s): S06.5X0D - Traumatic subdural hemorrhage without loss of consciousness, subsequent encounter (3) Incontinence overflow, urine SNOMED Code(s): 690463577 Code(s): N39.490 - OVERFLOW INCONTINENCE Status: Acute Priority: Low - Problem List Review Problem List Initiated/Reviewed/Updated: Yes - My Orders Last 24 Hours: My Active Orders 04/28/17 15:06 Haloperidol Lactate [Haldol] 2 mg IM Q4H PRN 04/29/17 10:34 OT Evaluation and Treatment [CONS] Routine PT Evaluation and Treatment [CONS] Routine 04/29/17 13:12 CBC WITH AUTO DIFF [HEME] Routine COMPREHENSIVE METABOLIC PN,CMP [CHEM] Routine - Plan Plan:: Assessment and plan: History of present Illness/injury: Fall, Subdural Hemorrhage, Schizophrenia, UTI This is a 86 year old male present [facility] 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 The Nurse Elementary Esl Teacher reports Mr. Lowe has fallen twice yesterday and once this morning, when it was observed his falling from an unsteady gait to the floor, hit the right hip and back of his head. -Workup in the Emergency Room he had a XR of right hip and pelvis; negative for acute bony injury. Head CT without contrast Acute on chronic Subdural Hemorrhage layering along the right side of the falx and along the right tentorium. Extra-axial areas of high density lentiform shaped hemorrhage within the right high frontal region measuring up to 7.5 mm in greatest axial dimension , likely subdural. right to left midline shift of approximately 6mm. -Consulted with [facility] Neurosurgeon who recommends 24 hour observation, repeat Head CT without contrast in am, and appointment with Neurology Clinic in one month. Report this type of bleed can resolve on its own without any intervention or can progress. will need to monitor. Contact was made with Customs Director, will admit as recommended, keep comfortable and provide recommended care. will contact Guardian to inform of Mr. Lowe's condition. He is currently being treated for bladder infection. He has pre-existing severe dementia, paranoid schizophrenia with hallucination, UTI, psoriasis and HTN. Guardian appointed and Customs Director manage his care. He is DNR/DNI Acute on Chronic Subdural Hemorrhage: -24 hours observation -repeat Head CT without contrast in am -Neurology Clinic appointment in one month -medicate for pain; Dilaudid 0.5 to 1 mg IV every 2 hours as needed for pain -medicate for agitation; Ativan 0.5 to 1 mg IV every 2 hours as needed for agitation -IV fluids Normal Saline 100ml/hr -neuro checks every 4 hours x 24 hours Schizophrenia; paranoid with delirium, agitation -continue medications as prescribed Hypertension -continue Lisinopril 20 po daily Urinary Tract Infection -continue antibiotic -push fluids Atopic dermatitis -skin care as directed. -Metronizole topical as directed Maintenance Issues -DVT prophylaxis; contraindicated due to active subdural hemorrhage -GI Prophylaxis; Protonix 40 mg IV -Nutrition; regular soft diet -Carpio Catheter-chronic indwelling carpio catheter CODE STATUS; DNR/DNI Admission Justification; This patient will be admitted for Observation services. It is reasonably expected the patient will not require inpatient services that span a period time over 2 midnights. I reasonably expect this patient to be discharge or transferred within 2 midnights after admission to the [facility]. Disposition ; [facility] to [facility] after Observation services. Primary Care Physician; Dr. Gonzalez, [facility] Hospitalist; Ashutosh Mclean CNP 04/27/17 Patient changed to admit status. Repeat CT head shows no change compared to previous CT. We will continue pain management as needed and reassess Neurological status as directed and scheduled. 04/28/17 Pain management has increased sedation and patient has not been able to take his Seroquel. Discussed plan with care team and Pharmacy. Patient agitation has been managed with Haldol as a last resort. We will try daily cares and try to feed and administer daily medications for Schizophrenia. Family and Guardian in contact with Customs Director and Care team. We will continue current cares and management and prevention of falls due to the subdural hematoma. The concern is that patient is very active and confused at the same time which has caused him to fall mulitple times. If he has another major fall his subdural hematoma may worsen. We are limited in managing his falls with some sedation medications or anti-psychotics that are injectable ie Haldol when he is very agitated and aggressive hitting and grabbing nursing staff. 04/29/17 Guardian and Family present today and discussed with care team planning. Current plan is for continued management of patient with increased assistance for patient to take his own medications from redirection and supportive care. If this fails or patient gets agitated despite attempts to mitigate aggression or redirection and other methods we will have to go to IM medications ie Haldol. We will do our best to continue oral feeding and assistance. The care plan will have to change as patient status changes or determined by his control and medical management of his Schizophrenia. We will do our best to prevent falls but limit the use of anti-psychotics or sedation as much as possible to keep patient as safe from himself getting out of bed without assistance and falling.
[2017-04-29] MEDS: Erythromycin Base 0.5% Ophth Oint 3.5 GM Tube EYEBOTH SCH (21:47)
[2017-04-29] MEDS: Citalopram 20 MG Tab PO SCH (21:47)
[2017-04-29] MEDS: Haloperidol Lactate 5 MG/ML SDV IM PRN (22:20)
[2017-04-30] MEDS: Dextrose 5% in Water 1,000 ML IV SCH ×2 (01:46→12:39)
[2017-04-30] MEDS: METRONIDAZOLE TOP SCH (08:37)
[2017-04-30] MEDS: Pantoprazole 40 MG Vial IVPUSH SCH (09:05)
[2017-04-30] MEDS: metFORMIN 500 MG Tab PO SCH (09:06)
[2017-04-30] MEDS: Calcitonin (Salmon) Nasal Spray 3.7 ML Bottle NAS SCH (09:06)
[2017-04-30] MEDS: Lisinopril 10 MG Tab PO SCH (09:07)
[2017-04-30] MEDS ORDERED: Bisacodyl 10 MG Supp ONE (10:24)
[2017-04-30] MEDS ORDERED: Sodium Phosphate,Monobasic/Sodium Phosphate,Dibasic Enema 133 ML Bottle RECTAL ONE (11:07)
[2017-04-30 14:13] VITALS: BP 101/51
--- NOTE | 2017-05-01 11:01 | PCM.DCSUM1 ---
Discharge Summary - Discharge Data Discharge Date: 04/30/17 Discharge Disposition: DC/Tfer W/I Hosp To Swing 61 Condition: Stable - Discharge Diagnosis/Problem(s) (1) Paranoid schizophrenia, chronic condition SNOMED Code(s): 55984155 ICD Code: F20.0 - PARANOID SCHIZOPHRENIA Status: Acute Priority: High (2) Subdural hemorrhage following injury SNOMED Code(s): 575865642 ICD Code: S06.5X9A - TRAUM SUBDR HEM W LOC OF UNSP DURATION, INIT Status: Resolved Priority: High Qualifiers: Encounter type: subsequent encounter Loss of consciousness presence/ duration: without LOC Qualified Code(s): S06.5X0D - Traumatic subdural hemorrhage without loss of consciousness, subsequent encounter (3) Incontinence overflow, urine SNOMED Code(s): 682203770 ICD Code: N39.490 - OVERFLOW INCONTINENCE Status: Acute Priority: Low - Patient Summary/Data Consults: Consultations 04/29/17 10:34 OT Evaluation and Treatment [CONS] Routine Please Evaluate and Treat. OT Reason for Consult: Strengthening This query below is only for informational purposes and is not editable. Admission Diagnosis/Problem: Subdural hemorrhage following injury PT Evaluation and Treatment [CONS] Routine Please Evaluate and Treat. PT Reason for Consult: Strengthening This query below is only for informational purposes and is not editable. Admission Diagnosis/Problem: Subdural hemorrhage following injury - Patient Instructions Diet: Usual Diet as Tolerated, Mechanical Soft Activity: Bedrest, No Strenuous Activities, Partial Weight Bearing Driving: Do Not Drive Showering/Bathing, Other: total assist with bathing Notify Provider of: Fever, Increased Pain, Nausea and/or Vomiting - Discharge Plan Home Medications: Home Meds Acetaminophen [Tylenol] 650 mg PO BID 04/10/17 [History] Calcitonin,B[place],Synthetic [Calcitonin-[place]] 1 spray INH DAILY 04/10/17 [ History] Citalopram Hydrobromide [Citalopram HBr] 20 mg PO BEDTIME 04/10/17 [History] Erythromycin Base [Erythromycin] 1 applic TOP BEDTIME 04/10/17 [History] Lisinopril [Lisinopril] 10 mg PO DAILY 04/10/17 [History] QUEtiapine [SEROquel] 450 mg PO BEDTIME 04/10/17 [History] metFORMIN HCl [Metformin HCl] 250 mg PO BID 04/10/17 [History] metroNIDAZOLE [metroNIDAZOLE 0.75% Cream] 1 applic TOP DAILY 04/10/17 [History] QUEtiapine Fumarate [Seroquel] 200 mg PO ACBREAKFAST 04/13/17 [History] QUEtiapine [SEROquel XR] 200 tab PO ACLUNCH 04/13/17 [History] Forms: ED Department Discharge Referrals: PCP,None [Primary Care Provider] - - Discharge Summary/Plan Comment Discharge Summary/Plan Comment: Patient to be admitted to Swing bed for continued monitoring of his subdural hematoma, neuro, and management of his Paranoid Schizophrenia. - Patient Data Vitals - Most Recent: Last Vital Signs Temp 37.1 C 04/30/17 13:00 Pulse 101 H 04/30/17 13:00 Resp 18 04/30/17 13:00 BP 101/51 L 04/30/17 13:00 Pulse Ox 94 L 04/30/17 13:00 Weight - Most Recent: 70.307 kg Lab Results - Last 24 hrs: Laboratory Results - last 24 hr 04/30/17 Range/Units 11:44 POC Glucose 204 H (74-110) mg/dL Med Orders - Current: Current Medications Discontinued Medications Albuterol (Proventil Neb Soln) 2.5 mg NEB Q2H PRN PRN Reason: Shortness Of Breath/wheezing Last Admin: 04/27/17 01:15 Dose: 2.5 mg Bisacodyl (Dulcolax) Confirm Administered Dose 10 mg .ROUTE .STK-MED ONE Stop: 04/30/17 10:25 Last Admin: 04/30/17 10:30 Dose: 10 mg Calamine/Phenol (Calmoseptine) Confirm Administered Dose 113 gm TOP .STK-MED ONE Stop: 04/27/17 01:04 Last Admin: 04/27/17 01:10 Dose: 1 applic Calcitonin [place] (Miacalcin Nasal [place]) 3.7 ml MIKY DAILY [facility] Last Admin: 04/30/17 09:06 Dose: Not Given Citalopram Hydrobromide (Celexa) 20 mg PO BEDTIME [facility] Last Admin: 04/29/17 21:47 Dose: Not Given Diazepam (Valium) 10 mg IM ONETIME ONE Stop: 04/26/17 10:47 Last Admin: 04/26/17 10:46 Dose: 10 mg Diphenhydramine HCl (Benadryl) 25 mg IVPUSH ONETIME ONE Stop: 04/27/17 02:20 Last Admin: 04/27/17 02:46 Dose: 25 mg Diphenhydramine HCl (Benadryl) 50 mg IM ONETIME ONE Stop: 04/28/17 01:52 Last Admin: 04/27/17 23:15 Dose: 50 mg Erythromycin (Erythromycin 0.5% Ophth Oint) 0 gm EYEBOTH BEDTIME [facility] Last Admin: 04/29/17 21:47 Dose: Not Given Haloperidol Lactate (Haldol) 5 mg IM ASDIRECTED PRN PRN Reason: AGITATION Last Admin: 04/27/17 16:10 Dose: 5 mg Haloperidol Lactate (Haldol) 5 mg IM ONETIME ONE Stop: 04/28/17 01:51 Last Admin: 04/27/17 23:15 Dose: 5 mg Haloperidol Lactate (Haldol) 2 mg IM Q4H PRN PRN Reason: AGITATION Last Admin: 04/29/17 22:20 Dose: 2 mg Hydromorphone HCl (Dilaudid) 1 mg IVPUSH ONETIME ONE Stop: 04/26/17 11:39 Last Admin: 04/26/17 11:55 Dose: 1 mg Hydromorphone HCl (Dilaudid) Confirm Administered Dose 2 mg .ROUTE .STK-MED ONE Stop: 04/26/17 11:59 Last Admin: 04/26/17 13:10 Dose: Not Given Hydromorphone HCl (Dilaudid) 0.5 mg IV Q2H PRN PRN Reason: Pain (severe 7-10) Last Admin: 04/27/17 01:11 Dose: 0.5 mg Sodium Chloride (Normal Saline) 1,000 mls @ 100 mls/hr IV ASDIRECTED [facility] Last Admin: 04/27/17 01:00 Dose: 100 mls/hr Dextrose/Water (Dextrose 5% In Water) 1,000 mls @ 100 mls/hr IV ASDIRECTED [facility] Last Admin: 04/30/17 12:39 Dose: 100 mls/hr Trimethoprim/Sulfamethoxazole (10 ml/ Dextrose/Water) 260 mls @ 250 mls/hr IV Q12H [facility] Stop: 04/29/17 06:01 Last Admin: 04/28/17 21:05 Dose: 250 mls/hr Lisinopril (Prinivil) 10 mg PO DAILY [facility] Last Admin: 04/27/17 08:08 Dose: Not Given Lisinopril (Prinivil) 10 mg PO BID [facility] Last Admin: 04/30/17 09:07 Dose: Not Given Lorazepam (Ativan) 0.1 - 1 mg IVPUSH Q2H PRN PRN Reason: Agitation Last Admin: 04/27/17 14:40 Dose: 1 mg Lorazepam (Ativan) 0.1 - 2 mg IVPUSH Q2H PRN PRN Reason: Agitation Last Admin: 04/29/17 23:00 Dose: 1 mg Lorazepam (Ativan) 2 mg IM ONETIME ONE Stop: 04/28/17 01:55 Last Admin: 04/27/17 23:15 Dose: 2 mg Metformin HCl (Glucophage) 250 mg PO BID [facility] Last Admin: 04/30/17 09:06 Dose: Not Given Morphine Sulfate (Morphine) 2 mg IVPUSH ONETIME ONE Stop: 04/27/17 02:20 Last Admin: 04/27/17 03:08 Dose: Not Given Morphine Sulfate (Morphine) 2 mg IVPUSH Q2H PRN PRN Reason: Pain Last Admin: 04/29/17 06:09 Dose: 2 mg (Metronidazole [ Metronidazole 0.75% Cream] 1 Applic) 1 applic TOP DAILY [facility] Last Admin: 04/30/17 08:37 Dose: 1 applic Ondansetron HCl (Zofran) 4 mg IVPUSH ONETIME ONE Stop: 04/26/17 11:45 Last Admin: 04/26/17 13:10 Dose: Not Given Ondansetron HCl (Zofran) Confirm Administered Dose 4 mg .ROUTE .STK-MED ONE Stop: 04/26/17 12:00 Last Admin: 04/26/17 13:10 Dose: Not Given Ondansetron HCl (Zofran) 4 mg IV Q4H PRN PRN Reason: Nausea/Vomiting Last Admin: 04/26/17 11:45 Dose: 4 mg Pantoprazole Sodium (Protonix Iv) 40 mg IVPUSH DAILY [facility] Last Admin: 04/30/17 09:05 Dose: 40 mg Quetiapine Fumarate (Seroquel) 450 mg PO BEDTIME [facility] Last Admin: 04/29/17 22:00 Dose: Not Given Quetiapine Fumarate (Seroquel) 100 mg PO DAILY@0730 [facility] Last Admin: 04/27/17 08:08 Dose: Not Given Quetiapine Fumarate (Seroquel) 200 mg PO DAILY@0700 [facility] Quetiapine Fumarate (Seroquel) 200 mg PO DAILY@1100 [facility] Last Admin: 04/30/17 13:32 Dose: 200 mg Quetiapine Fumarate (Seroquel) 200 mg PO DAILY@0700 [facility] Last Admin: 04/30/17 09:06 Dose: Not Given Sodium Biphosphate/Sodium Phosphate (Fleet Enema) 133 ml RECTAL ONETIME ONE Stop: 04/30/17 11:08 Last Admin: 04/30/17 11:08 Dose: 133 ml *Q Meaningful Use (DIS) - VTE *Q VTE Criteria *Q: VTE Anticoagulation Contraindications: Medical/Procedure Contrai - Stroke *Q Stroke Criteria *Q: - AMI *Q AMI Criteria *Q:
== END 2017-04-30 15:12 | disposition swing bed (61) | DRG 86 ==
LOC: LB.ED 10:42 → LB.MS 12:05 → UNDOADMOB 12:05 → LB.MS 12:10 → OBSVTOIN 04-27 09:38
PROVIDERS: ADMIT Nurse Practitioner; ATTEND Family Medicine
DX: S06.5X0A Traumatic subdural hemorrhage without loss of consciousness, initial encounter (principal); N39.0 Urinary tract infection, site not specified; F20.0 Paranoid schizophrenia; Z66 Do not resuscitate; M25.551 Pain in right hip; I10 Essential (primary) hypertension; G30.9 Alzheimer's disease, unspecified; F02.80 Dementia in other diseases classified elsewhere, unspecified severity, without behavioral disturbance, psychotic disturbance, mood disturbance, and anxiety; W19.XXXA Unspecified fall, initial encounter; Y92.129 Unspecified place in nursing home as the place of occurrence of the external cause; R29.6 Repeated falls; Z91.81 History of falling; R41.0 Disorientation, unspecified; R45.1 Restlessness and agitation; N39.490 Overflow incontinence
CPT/HCPCS: 36415; 70450; 73502; 80048; 85025; 96372 ×2; 96374; 96375 ×3; 96376 ×2; 99285; A9270 ×2; C9113 ×2; G0103; G0378 ×4; J1170 ×4; J1200; J2060 ×3; J2270 ×2; J2405; J3360; J7040; J7060; 80053; 82962; 99220; J1630; S0039

== ENCOUNTER 2017-04-30 10:47 | Inpatient (IN) | payer MEDICARE, BC ==
[2017-04-30] MEDS ORDERED: Acetaminophen/HYDROcodone 325-5 MG Tab PO PRN (16:06)
[2017-04-30] MEDS ORDERED: Tuberculin, PPD 5 Units/0.1 ML 1 ML MDV IDERM ONE (16:27)
--- NOTE | 2017-04-30 17:03 | PCM.HP ---
H&P History of Present Illness - General Date of Service: 04/30/17 Admit Problem/Dx: Admission Diagnosis/Problem Admission Diagnosis/Problem Psychological disorder Source of Information: Old Records, RN History Limitations: Reports: Altered Mental Status, Physical Impairment - History of Present Illness Initial Comments - Free Text/Narative: This 86 yr male presented from intermediate card tender care facility to acute hospital post injury with subdural hemorrhage, bladder distention, constipation and dementia. He will start on Swing bed admission today for psych. medication changes. Evaluation ordered for PT and OT for evaluation and treatment for strengthening. He is starting to have periods of being awake and eating minimal amount of soft foods. He has a history of falls and is placed on falls precautions. He is starting to take some oral medications when crushed and placed in soft foods. Carpio catheter is intact and draining clear urine. IV of Nacl @ 125 cc/hr is ordered. He continues to have signs of pain to his head and neck. Order for oral vicoden for moderate pain, Tylenol for mild pain, and Morphine Sulfate IV for severe pain. Medications continued as pt tolerates. Symptom Onset Date: 04/27/17 Duration of Symptoms: Reports: Intermittent Location: Reports: Head, Neck Improves with: Reports: Medication, Rest Worsens with: Reports: Movement Associated Symptoms: Reports: Weakness - Related Data Allergies/Adverse Reactions: Allergies Allergy/AdvReac Type Severity Reaction Status Date / Time hydromorphone [From Dilaudid] AdvReac Wheezing Verified 04/30/17 16:25 Home Medications: Home Meds Acetaminophen [Tylenol] 650 mg PO BID 04/10/17 [History] Calcitonin,[place],Synthetic [Calcitonin-[place]] 1 spray INH DAILY 04/10/17 [ History] Citalopram Hydrobromide [Citalopram HBr] 20 mg PO BEDTIME 04/10/17 [History] Erythromycin Base [Erythromycin] 1 applic TOP BEDTIME 04/10/17 [History] Lisinopril [Lisinopril] 10 mg PO DAILY 04/10/17 [History] QUEtiapine [SEROquel] 450 mg PO BEDTIME 04/10/17 [History] metFORMIN HCl [Metformin HCl] 250 mg PO BID 04/10/17 [History] metroNIDAZOLE [metroNIDAZOLE 0.75% Cream] 1 applic TOP DAILY 04/10/17 [History] QUEtiapine Fumarate [Seroquel] 200 mg PO ACBREAKFAST 04/13/17 [History] QUEtiapine [SEROquel XR] 200 tab PO ACLUNCH 04/13/17 [History] Past Medical History Other HEENT History: [place] Cardiovascular History: Reports: Hypertension Genitourinary History: Reports: Retention, Urinary Other Genitourinary History: Being treated for UTI in [place] and urinary obstruction. Carpio cath leg bag in place with cloudy juan urine Musculoskeletal History: Reports: Other (See Below) Other Musculoskeletal History: Generalized weakness Neurological History: Reports: Alzheimers Disease Psychiatric History: Reports: Alzheimers Disease, Dementia, Depression, Schizophrenia Endocrine/Metabolic History: Reports: Diabetes, Type II Dermatologic History: Reports: Psoriasis, Seborrheic Dermatitis, Other (See Below) Other Dermatologic History: Toenail Fungus. Rosacia - Past Surgical History HEENT Surgical History: Reports: None Cardiovascular Surgical History: Reports: None Male Surgical History: Reports: None Endocrine Surgical History: Reports: None Neurological Surgical History: Reports: None Musculoskeletal Surgical History: Reports: Other (See Below) Other Musculoskeletal Surgeries/Procedures:: chronic back pain Dermatological Surgical History: Reports: None Social & Family History - Family History Family Medical History: Noncontributory - Tobacco Use Smoking Status *Q: Unknown Ever Smoked Second Hand Smoke Exposure: No - Caffeine Use Caffeine Use: Reports: Coffee - Recreational Drug Use Recreational Drug Use: No - Living Situation & Occupation Living situation: Reports: Extended Care Facility Occupation: Disabled H&P Review of Systems - Review of Systems: Review Of Systems: See Below General: Reports: Weakness. Denies: Fever, Chills HEENT: Reports: Headaches Pulmonary: Reports: No Symptoms Cardiovascular: Reports: No Symptoms Gastrointestinal: Reports: Constipation Genitourinary: Reports: Retention, Other (carpio catheter) Musculoskeletal: Reports: Neck Pain Skin: Reports: Dryness, Other (erythema to left arm, scattered scratches to legs.) Psychiatric: Reports: Confusion Neurological: Reports: Confusion, Headache, Weakness Exam - Exam Exam: See Below - Vital Signs Weight: 155 lb - Exam Quality Assessment: Urinary Catheter, DVT Prophylaxis. No: Skin Breakdown General: No: Alert, Oriented HEENT: Conjunctiva Clear, Mucosa Moist & [place], Other (Pain to head, post head injury) Neck: Supple, Trachea Midline, Other (Pain to back of neck) Lungs: Clear to Auscultation, Normal Respiratory Effort Cardiovascular: Regular Rate, Normal S1, Normal S2 GI/Abdominal Exam: Soft, Non-Tender Back Exam: Normal Inspection Extremities: Non-Tender, No Pedal Edema, Normal Capillary Refill Peripheral Pulses: 2+: Dorsalis Pedis (L), Dorsalis Pedis (R) Skin: Warm, Dry Neurological: No: Strength Equal Bilateral, Normal Speech Neuro Extensive - Mental Status: Alert. No: Oriented x3, Normal Mood/Affect, Memory Intact Psychiatric: Alert, Other (hx schizophrenia and paranoid) - Patient Data Result Diagrams: 05/01/17 07:20 *Q Meaningful Use (ADM) - VTE *Q VTE Criteria *Q: VTE Mechanical Contraindications *Q: Confused Consciousness - VTE Risk Assess *Q Each Risk Factor Represents 3 Points: Age 75 Years or Greater Total Score 3 Point Risk Factors: 3 - Stroke *Q Stroke Criteria *Q: - AMI *Q AMI Criteria *Q: - Problem List (1) Dementia associated with other underlying disease ICD Code: F03.91 - UNSPECIFIED DEMENTIA WITH BEHAVIORAL DISTURBANCE Status: Acute Priority: High Current Visit: No Qualifiers: Dementia behavioral disturbance: with behavioral disturbance Qualified Code (s): F02.81 - Dementia in other diseases classified elsewhere with behavioral disturbance (2) Constipation SNOMED Code(s): 04232151 ICD Code: K59.00 - CONSTIPATION, UNSPECIFIED Status: Acute Priority: Medium Current Visit: No Qualifiers: Constipation type: unspecified constipation type Qualified Code(s): K59.00 - Constipation, unspecified (3) Head pain cephalgia SNOMED Code(s): 71145158 ICD Code: R51 - HEADACHE Status: Acute Priority: Medium Current Visit: Yes Qualifiers: Headache type: post-traumatic Headache chronicity pattern: acute headache Intractability: not intractable Qualified Code(s): G44.319 - Acute post- traumatic headache, not intractable (4) Incontinence overflow, urine SNOMED Code(s): 122679306 ICD Code: N39.490 - OVERFLOW INCONTINENCE Status: Acute Priority: Low Current Visit: No (5) Diabetes mellitus SNOMED Code(s): 98224503 ICD Code: E11.9 - TYPE 2 DIABETES MELLITUS WITHOUT COMPLICATIONS Status: Chronic Priority: Medium Current Visit: Yes Qualifiers: Diabetes mellitus type: type 2 Diabetes mellitus complication status: with hyperglycemia Diabetes mellitus residential insulin use: without intermediate card tender use Qualified Code(s): E11.65 - Type 2 diabetes mellitus with hyperglycemia Problem List Initiated/Reviewed/Updated: Yes Orders Last 24hrs: Active Orders 24 hr Category Date Time Status Patient Status [ADT] Routine ADT 04/30/17 16:07 Active Blood Glucose Check, Bedside [RC] BIDMEALS Care 04/30/17 16:06 Active Dietary Supplements [RC] BIDMEALS Care 04/30/17 16:06 Active Oxygen Therapy [RC] PRN Care 04/30/17 16:07 Active Up With Assistance [RC] ASDIRECTED Care 04/30/17 16:06 Active Vital Signs [RC] PER UNIT ROUTINE Care 04/30/17 16:07 Active OT Evaluation and Treatment [CONS] Routine Cons 04/30/17 16:06 Active PT Evaluation and Treatment [CONS] Routine Cons 04/30/17 16:06 Active Mechanical Soft Diet [DIET] Diet 04/30/17 Dinner Ordered BASIC METABOLIC PANEL,BMP [CHEM] Routine Lab 05/01/17 08:00 Ordered CULTURE MRSA SURVEY [RM] Routine Lab 04/30/17 16:37 Uncollected Acetaminophen [Tylenol] Med 04/30/17 20:00 Ordered 650 mg PO BID Acetaminophen/HYDROcodone [[place] 325-5 MG] Med 04/30/17 16:06 Active 0.5 tab PO Q4H PRN Bisacodyl [Dulcolax] Med 04/30/17 16:06 Active 10 mg RECTAL DAILY PRN Calcitonin ([place]gden) [Miacalcin Nasal [place]] Med 05/01/17 08:00 Ordered DOSE ml MIKY DAILY Citalopram Hydrobromide [Citalopram HBr] Med 04/30/17 20:00 Ordered 20 mg PO BEDTIME Erythromycin Base [Erythromycin 0.5% Ophth Oint] Med 04/30/17 20:00 Ordered DOSE gm EYERT BEDTIME Lisinopril [Prinivil] Med 05/01/17 08:00 Ordered 10 mg PO DAILY Morphine Med 04/30/17 16:06 Active 2 mg IVPUSH Q2H PRN QUEtiapine Fumarate [Seroquel] Med 05/01/17 07:00 Ordered 200 mg PO ACBREAKFAST QUEtiapine [SEROquel XR] Med 05/01/17 11:00 Ordered 1 tab PO ACLUNCH QUEtiapine [SEROquel] Med 04/30/17 20:00 Ordered 450 mg PO BEDTIME Sodium Chloride 0.9% [Normal Saline] 1,000 ml Med 04/30/17 16:15 Active IV ASDIRECTED metFORMIN [Glucophage] Med 04/30/17 20:00 Ordered 250 mg PO BID metroNIDAZOLE [metroNIDAZOLE 0.75% Cream] Med 05/01/17 08:00 Ordered 1 applic TOP DAILY Antiembolic Hose [OM.PC] Per Unit Routine Oth 04/30/17 16:11 Ordered Resuscitation Status Routine Resus Stat 04/30/17 16:06 Ordered Medication Orders Acetaminophen (Tylenol) 650 mg PO BID [facility] Hydrocodone Bitart/Acetaminophen ([place] 325-5 Mg) 0.5 tab PO Q4H PRN PRN Reason: Pain (moderate 4-6) Bisacodyl (Dulcolax) 10 mg RECTAL DAILY PRN PRN Reason: Constipation Calcitonin [place] (Miacalcin Nasal [place]) ml MIKY DAILY [facility] Erythromycin (Erythromycin 0.5% Ophth Oint) gm EYERT BEDTIME [facility] Sodium Chloride (Normal Saline) 1,000 mls @ 125 mls/hr IV ASDIRECTED [facility] Lisinopril (Prinivil) 10 mg PO DAILY [facility] Metformin HCl (Glucophage) 250 mg PO BID [facility] Morphine Sulfate (Morphine) 2 mg IVPUSH Q2H PRN PRN Reason: Pain (severe 7-10) Non-Formulary Medication (Citalopram Hydrobromide [Citalopram Hbr]) 20 mg PO BEDTIME [facility] Non-Formulary Medication (Metronidazole [Metronidazole 0.75% Cream]) 1 applic TOP DAILY [facility] Non-Formulary Medication (Quetiapine Fumarate [Seroquel]) 200 mg PO ACBREAKFAST [facility] Non-Formulary Medication (Quetiapine [Seroquel]) 450 mg PO BEDTIME [facility] Non-Formulary Medication (Quetiapine [Seroquel Xr]) 1 tab PO ACLUNCH [facility] Assessment/Plan Comment:: Pt admit to swing bed for adjustment of psych. medications, pain management, constipation, overflow incontinence, strengthening, and decrease in intake. Dementia and adjustment of psych medications: Administer medications as pt tolerates in soft foods Pain Management: Assess and treat headache and neck pain. Medications ordered for mild, moderate, and severe pain. Constipation: Rectal suppository or enema every 2-3 days as needed. Overflow incontinence: Carpio catheter to bedside drainage. weakness: PT/OT consult for evaluation and treatment for strengthening decreased oral intake: IV Nacl @ 125 cc/hr Mechanical soft diet as tolerated, when alert. Diabetes with hyperglycemia: Monitor blood sugars. Offer Metformin when alert and able to swallow medication.
[2017-04-30] MEDS: Sodium Chloride 0.9% 1,000 ML IV SCH (18:40)
[2017-04-30] MEDS: Acetaminophen 325 MG Tab PO SCH (21:55)
[2017-04-30] MEDS: metFORMIN 500 MG Tab PO SCH (21:55)
[2017-04-30] MEDS: Erythromycin Base 0.5% Ophth Oint 3.5 GM Tube EYERT SCH (21:55)
[2017-04-30] MEDS: Citalopram 20 MG Tab PO SCH (21:56)
[2017-05-01] MEDS: metFORMIN 500 MG Tab PO SCH ×2 (08:00→22:35)
[2017-05-01] MEDS: Acetaminophen 325 MG Tab PO SCH ×2 (08:00→22:35)
[2017-05-01] MEDS: Lisinopril 10 MG Tab PO SCH (08:00)
[2017-05-01] MEDS: Calcitonin (Salmon) Nasal Spray 3.7 ML Bottle NAS SCH (08:00)
[2017-05-01] MEDS: Sodium Chloride 0.9% 1,000 ML IV SCH (10:50)
[2017-05-01] MEDS ORDERED: QUETIAPINE PO SCH (11:00)
[2017-05-01] MEDS: Morphine 2 MG/ML Syringe IVPUSH PRN (12:06)
[2017-05-01] MEDS: Dextrose 5%-0.45% NaCl 1,000 ML IV SCH ×2 (13:30→21:30)
[2017-05-01] MEDS: Haloperidol Lactate 5 MG/ML SDV IVPUSH ONE (21:29)
[2017-05-01] MEDS ORDERED: LORazepam 2 MG/ML MDV ONE (21:30)
[2017-05-01] MEDS ORDERED: Haloperidol Lactate 5 MG/ML SDV ONE (21:30)
[2017-05-01] MEDS: LORazepam 2 MG/ML MDV IVPUSH ONE (21:34)
[2017-05-01] MEDS: Erythromycin Base 0.5% Ophth Oint 3.5 GM Tube EYERT SCH (22:35)
[2017-05-01] MEDS: Citalopram 20 MG Tab PO SCH (22:35)
[2017-05-02] MEDS: Haloperidol Lactate 5 MG/ML SDV IVPUSH ONE (02:30)
[2017-05-02] MEDS: LORazepam 2 MG/ML MDV IVPUSH ONE (02:35)
[2017-05-02] MEDS: Calcitonin (Salmon) Nasal Spray 3.7 ML Bottle NAS SCH (08:20)
[2017-05-02] MEDS: metFORMIN 500 MG Tab PO SCH ×2 (09:34→19:29)
[2017-05-02] MEDS: Lisinopril 10 MG Tab PO SCH (09:35)
[2017-05-02] MEDS: Acetaminophen 325 MG Tab PO SCH ×2 (09:35→19:27)
[2017-05-02] MEDS: Citalopram 20 MG Tab PO SCH (19:28)
[2017-05-03] MEDS: Erythromycin Base 0.5% Ophth Oint 3.5 GM Tube EYERT SCH ×2 (07:29→19:33)
[2017-05-03] MEDS: Calcitonin (Salmon) Nasal Spray 3.7 ML Bottle NAS SCH (10:09)
[2017-05-03] MEDS: metFORMIN 500 MG Tab PO SCH ×2 (10:09→19:32)
[2017-05-03] MEDS: Acetaminophen 325 MG Tab PO SCH ×2 (10:21→19:31)
[2017-05-03] MEDS: Lisinopril 10 MG Tab PO SCH (10:22)
[2017-05-03] MEDS: Citalopram 20 MG Tab PO SCH (19:33)
[2017-05-04] MEDS: Morphine 2 MG/ML Syringe IVPUSH PRN ×3 (00:46→20:55)
[2017-05-04] MEDS: metFORMIN 500 MG Tab PO SCH ×2 (08:11→20:35)
[2017-05-04] MEDS: Acetaminophen 325 MG Tab PO SCH ×2 (08:13→20:15)
[2017-05-04] MEDS: Lisinopril 10 MG Tab PO SCH (08:13)
[2017-05-04] MEDS: Calcitonin (Salmon) Nasal Spray 3.7 ML Bottle NAS SCH (08:14)
[2017-05-04] MEDS: LORazepam 0.5 MG Tab PO PRN ×2 (15:09→21:53)
[2017-05-04] MEDS: Acetaminophen/HYDROcodone 325-5 MG Tab PO PRN ×2 (15:14→21:54)
--- NOTE | 2017-05-04 16:57 | PCM.PN ---
- General Info Date of Service: 05/04/17 Admission Dx/Problem (Free Text): Admission Diagnosis/Problem Admission Diagnosis/Problem Psychological disorder Post head injury Diabetes Type 2 Subjective Update: No words per pt during pt rounds. Pt resting well. Checked on pt at 830am and 1630 and pt resting at both times. Functional Status: Reports: Pain Controlled, Tolerating Diet. Denies: Ambulating - Patient Data Vitals - Most Recent: Last Vital Signs Temp 98.8 F 05/04/17 08:00 Pulse 95 05/04/17 08:00 Resp 14 05/04/17 08:00 BP 172/88 H 05/04/17 08:13 Pulse Ox 97 05/04/17 08:00 Weight - Most Recent: 155 lb I&O - Last 24 Hours: Intake & Output 05/04/17 05/04/17 05/04/17 06:59 14:59 22:59 Intake Total 100 Output Total 200 Balance -100 Lab Results Last 24 Hours: Laboratory Results - last 24 hr 05/03/17 05/04/17 05/04/17 Range/Units 16:02 07:30 08:30 Sodium 140 (136-145) mmol/L Potassium 4.2 (3.5-5.1) mmol/L Chloride 108 H (98-107) mmol/L Carbon Dioxide 26.3 (21.0-32.0) mmol/L Anion Gap 9.9 (5.0-15.0) mmol/L BUN 13 D (8-26) mg/dL Creatinine 0.96 D (0.70-1.30) mg/dL Est Cr Clr Drug Dosing 52.89 mL/min Estimated GFR (MDRD) > 60 (>60) MLS/MIN BUN/Creatinine Ratio 13.5 (6-25) Glucose 142 H (74-100) mg/dL POC Glucose 130 H 138 H (74-110) mg/dL Calcium 9.1 (8.5-10.1) mg/dL Med Orders - Current: Current Medications Acetaminophen (Tylenol) 650 mg PO BID [facility] Last Admin: 05/04/17 08:13 Dose: 650 mg Hydrocodone Bitart/Acetaminophen ([place] 325-5 Mg) 1 tab PO Q4H PRN PRN Reason: Pain (moderate 4-6) Last Admin: 05/04/17 15:14 Dose: 0.5 tab Bisacodyl (Dulcolax) 10 mg RECTAL DAILY PRN PRN Reason: Constipation Calcitonin [place] (Miacalcin Nasal [place]) 3.7 ml MIKY DAILY [facility] Citalopram Hydrobromide (Celexa) 20 mg PO BEDTIME [facility] Last Admin: 05/03/17 19:33 Dose: 20 mg Erythromycin (Erythromycin 0.5% Ophth Oint) 0 gm EYERT BEDTIME [facility] Last Admin: 05/03/17 19:33 Dose: 1 applic Sodium Chloride (Normal Saline) 1,000 mls @ 125 mls/hr IV ASDIRECTED [facility] Last Admin: 05/01/17 10:50 Dose: 125 mls/hr Lisinopril (Prinivil) 10 mg PO DAILY [facility] Last Admin: 05/04/17 08:13 Dose: 10 mg Lorazepam (Ativan) 0.5 mg PO Q8H PRN PRN Reason: Anxiety Last Admin: 05/04/17 15:09 Dose: 0.5 mg Metformin HCl (Glucophage) 250 mg PO BID [facility] Last Admin: 05/04/17 08:11 Dose: 250 mg Morphine Sulfate (Morphine) 2 mg IVPUSH Q2H PRN PRN Reason: Pain (severe 7-10) Last Admin: 05/04/17 13:30 Dose: 2 mg Metronidazole 0.75% (Cream) 1 applic TOP DAILY [facility] Last Admin: 05/04/17 08:11 Dose: 1 applic Quetiapine Fumarate (Seroquel) 200 mg PO DAILY@0700,1100 [facility] Last Admin: 05/04/17 12:52 Dose: 200 mg Quetiapine Fumarate (Seroquel) 400 mg PO BEDTIME [facility] Last Admin: 05/03/17 19:32 Dose: 400 mg Quetiapine Fumarate (Seroquel) 50 mg PO BEDTIME [facility] Last Admin: 05/03/17 19:31 Dose: 50 mg Discontinued Medications Hydrocodone Bitart/Acetaminophen ([place] 325-5 Mg) 0.5 tab PO Q4H PRN PRN Reason: Pain (moderate 4-6) Last Admin: 05/04/17 13:51 Dose: 0.5 tab Calcitonin [place] (Miacalcin Nasal [place]) 0 ml MIKY DAILY [facility] Last Admin: 05/04/17 08:14 Dose: 1 spray Haloperidol Lactate (Haldol) Confirm Administered Dose 5 mg .ROUTE .STK-MED ONE Stop: 05/01/17 21:31 Last Admin: 05/02/17 03:32 Dose: Not Given Haloperidol Lactate (Haldol) 5 mg IVPUSH ONETIME ONE Stop: 05/01/17 21:01 Last Admin: 05/02/17 02:30 Dose: 2.5 mg Dextrose/Sodium Chloride (Dextrose 5%-1/2 Ns) 1,000 mls @ 125 mls/hr IV ASDIRECTED [facility] Stop: 05/03/17 00:09 Last Admin: 05/01/17 21:30 Dose: 125 mls/hr Lorazepam (Ativan) Confirm Administered Dose 2 mg .ROUTE .STK-MED ONE Stop: 05/01/17 21:31 Last Admin: 05/02/17 03:32 Dose: Not Given Lorazepam (Ativan) 2 mg IVPUSH ONETIME ONE Stop: 05/01/17 21:01 Last Admin: 05/02/17 02:35 Dose: 1 mg Non-Formulary Medication (Quetiapine [Seroquel Xr]) 1 tab PO ACLUNCH [facility] Quetiapine Fumarate (Seroquel) 200 mg PO BID@0700,1100 [facility] Last Admin: 05/03/17 07:32 Dose: Not Given Quetiapine Fumarate (Seroquel) 450 mg PO DAILY@2000 [facility] Last Admin: 05/01/17 04:09 Dose: Not Given Quetiapine Fumarate (Seroquel) Confirm Administered Dose 400 mg .ROUTE .STK-MED ONE Stop: 05/03/17 19:38 Last Admin: 05/04/17 00:57 Dose: Not Given Tuberculin PPD (Aplisol) 5 unit IDERM ONETIME ONE Stop: 04/30/17 16:28 - Exam General: No Acute Distress, Sedated Neck: Supple, Trachea Midline Lungs: Clear to Auscultation, Normal Respiratory Effort Cardiovascular: Regular Rate GI/Abdominal Exam: Normal Bowel Sounds, Soft, Non-Tender Extremities: Normal Inspection, Non-Tender, No Pedal Edema Skin: Warm, Dry, Other (dry, flaky skin) Neurological: Other (no verbal response from pt. Pt resting after Vicodin and Ativan. 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 Code(s): F03.91 - UNSPECIFIED DEMENTIA WITH BEHAVIORAL DISTURBANCE Status: Acute Priority: High Current Visit: No Qualifiers: Dementia behavioral disturbance: with behavioral disturbance Qualified Code (s): F02.81 - Dementia in other diseases classified elsewhere with behavioral disturbance (2) Head pain cephalgia SNOMED Code(s): 02557607 Code(s): R51 - HEADACHE Status: Acute Priority: Medium Current Visit: Yes Qualifiers: Headache type: post-traumatic Headache chronicity pattern: acute headache Intractability: not intractable Qualified Code(s): G44.319 - Acute post- traumatic headache, not intractable (3) Diabetes mellitus SNOMED Code(s): 40773951 Code(s): E11.9 - TYPE 2 DIABETES MELLITUS WITHOUT COMPLICATIONS Status: Chronic Priority: Medium Current Visit: Yes Qualifiers: Diabetes mellitus type: type 2 Diabetes mellitus complication status: with hyperglycemia Diabetes mellitus terminal operations manager insulin use: without skilled nursing use Qualified Code(s): E11.65 - Type 2 diabetes mellitus with hyperglycemia (4) Constipation SNOMED Code(s): 11442577 Code(s): K59.00 - CONSTIPATION, UNSPECIFIED Status: Acute Priority: Medium Current Visit: No Qualifiers: Constipation type: unspecified constipation type Qualified Code(s): K59.00 - Constipation, unspecified (5) Incontinence overflow, urine SNOMED Code(s): 247499059 Code(s): N39.490 - OVERFLOW INCONTINENCE Status: Acute Priority: Low Current Visit: No - Problem List Review Problem List Initiated/Reviewed/Updated: Yes - My Orders Last 24 Hours: My Active Orders 05/04/17 14:32 LORazepam [Ativan] 0.5 mg PO Q8H PRN 05/04/17 14:34 Acetaminophen/HYDROcodone [[place] 325-5 MG] 1 tab PO Q4H PRN 05/05/17 08:00 Calcitonin ([place]) [Miacalcin Nasal [place]] 3.7 ml MIKY DAILY - Assessment Assessment:: Pt has periods of being more awake and alert and starting to take fluids, food and medications. He does have periods of agitation and pain. Medications adjusted as needed to keep pt comfortable. As pt becomes more alert, will continue to offer PT/OT evaluation and assist with treatment plan for strengthening. - Plan Plan:: Pt admit to swing bed for adjustment of psych. medications, pain management, constipation, overflow incontinence, strengthening, and decrease in intake. Dementia and adjustment of psych medications: Administer medications as pt tolerates, May crush and give in soft foods. With periods of agitation, start Ativan 0.5 mg tid as needed to keep pt comfortable and resting. Pain Management: Assess and treat headache and neck pain. Medications ordered for mild, moderate, and severe pain. Constipation: Rectal suppository or enema every 2-3 days as needed. Overflow incontinence: Smith catheter to bedside drainage. weakness: PT/OT continue to offer strengthening/evaluation as pt has more periods of being alert/awake. decreased oral intake: IVD'cd Mechanical soft diet as tolerated, when alert. Diabetes with hyperglycemia: Monitor blood sugars. Offer Metformin when alert and able to swallow medication.
[2017-05-04] MEDS: Citalopram 20 MG Tab PO SCH (20:35)
[2017-05-04] MEDS: Erythromycin Base 0.5% Ophth Oint 3.5 GM Tube EYERT SCH (22:01)
[2017-05-05] MEDS: Morphine 2 MG/ML Syringe IVPUSH PRN ×2 (04:13→14:47)
[2017-05-05] MEDS: Lisinopril 10 MG Tab PO SCH (08:19)
[2017-05-05] MEDS: Acetaminophen 325 MG Tab PO SCH ×2 (08:19→19:52)
[2017-05-05] MEDS: metFORMIN 500 MG Tab PO SCH ×2 (08:19→19:56)
[2017-05-05] MEDS: Calcitonin (Salmon) Nasal Spray 3.7 ML Bottle NAS SCH (08:22)
[2017-05-05] MEDS: Acetaminophen/HYDROcodone 325-5 MG Tab PO PRN (14:06)
[2017-05-05] MEDS: LORazepam 0.5 MG Tab PO PRN ×2 (14:19→19:55)
[2017-05-05] MEDS ORDERED: LORazepam 2 MG/ML MDV ONE (15:26)
[2017-05-05] MEDS: LORazepam 2 MG/ML MDV IVPUSH ONE (15:46)
[2017-05-05] MEDS ORDERED: LORazepam 2 MG/ML MDV IVPUSH ONE (15:49)
[2017-05-05] MEDS: Docusate Sodium 100 MG Cap PO PRN (19:57)
[2017-05-06] MEDS: Morphine 2 MG/ML Syringe IVPUSH PRN ×2 (01:55→21:41)
--- NOTE | 2017-05-06 08:00 | CT ---
DATE OF SERVICE: 05/05/17 CLINICAL DATA: subdural hematoma UNENHANCED BRAIN CT: Multislice acquisition through the brain without IV contrast was performed. Comparison is made to a prior exam dated 04/27/17. The right-sided subdural hematoma is again seen. It has significantly increased in volume and thickness when compared to the prior study. There is minimal residual acute blood density within it. There is also a subdural hematoma on the left on today's study that looks chronic. The interhemispheric subdural hematoma noted on the prior exam has partially resolved. The exam is otherwise unchanged from the prior. The patient's physician was notified of the findings by telephone and by [facility] preliminary radiology report. [id number] [facility]
[2017-05-06] MEDS: Calcitonin (Salmon) Nasal Spray 3.7 ML Bottle NAS SCH (09:45)
[2017-05-06] MEDS: Lisinopril 10 MG Tab PO SCH (10:46)
[2017-05-06] MEDS: metFORMIN 500 MG Tab PO SCH ×2 (10:49→21:55)
[2017-05-06] MEDS: Acetaminophen 325 MG Tab PO SCH ×2 (10:51→21:53)
--- NOTE | 2017-05-06 18:07 | PCM.PN ---
- General Info Date of Service: 05/06/17 Subjective Update: According to staff pt does sleep and is resting. Has been eating on and off. Taking his medications. He has had Ct head repeated yesterday to monitor the subdural bleed. Also he has been having carpio catheter for urinary drainage. Taking his meds . - Review of Systems General: Denies: Fever, Fatigue Pulmonary: Denies: Cough, Sputum Cardiovascular: Denies: Chest Pain, Lightheadedness Gastrointestinal: Denies: Nausea, Vomiting Genitourinary: Denies: Flank Pain Musculoskeletal: Denies: Joint Pain, Joint Swelling Skin: Denies: Pruritis, Rash Neurological: Reports: Confusion Psychiatric: Reports: Confusion, Hallucinations - Patient Data Vitals - Most Recent: Last Vital Signs Temp 97.6 F 05/06/17 08:00 Pulse 89 05/06/17 08:00 Resp 18 05/05/17 20:00 BP 155/77 H 05/06/17 10:46 Pulse Ox 95 05/06/17 08:00 Weight - Most Recent: 70.307 kg I&O - Last 24 Hours: Intake & Output 05/06/17 05/06/17 05/06/17 06:59 14:59 22:59 Intake Total 75 Output Total 300 Balance -225 Lab Results Last 24 Hours: Laboratory Results - last 24 hr 05/06/17 05/06/17 Range/Units 08:22 11:04 POC Glucose 136 H 158 H (74-110) mg/dL Med Orders - Current: Current Medications Acetaminophen (Tylenol) 650 mg PO BID [facility] Last Admin: 05/06/17 10:51 Dose: 650 mg Hydrocodone Bitart/Acetaminophen ([place] 325-5 Mg) 1 tab PO Q4H PRN PRN Reason: Pain (moderate 4-6) Last Admin: 05/05/17 14:06 Dose: 1 tab Bisacodyl (Dulcolax) 10 mg RECTAL DAILY PRN PRN Reason: Constipation Calcitonin [place] (Miacalcin Nasal [place]) 3.7 ml MIKY DAILY [facility] Last Admin: 05/06/17 09:45 Dose: 1 spray Citalopram Hydrobromide (Celexa) 20 mg PO BEDTIME [facility] Last Admin: 05/04/17 20:35 Dose: 20 mg Docusate Sodium (Colace) 100 mg PO BID PRN PRN Reason: constipation Last Admin: 05/05/17 19:57 Dose: 100 mg Erythromycin (Erythromycin 0.5% Ophth Oint) 0 gm EYERT BEDTIME [facility] Last Admin: 05/04/17 22:01 Dose: Not Given Sodium Chloride (Normal Saline) 1,000 mls @ 125 mls/hr IV ASDIRECTED [facility] Last Admin: 05/01/17 10:50 Dose: 125 mls/hr Lisinopril (Prinivil) 10 mg PO DAILY [facility] Last Admin: 05/06/17 10:46 Dose: 10 mg Lorazepam (Ativan) 0.5 mg PO Q8H PRN PRN Reason: Anxiety Last Admin: 05/05/17 19:55 Dose: 0.5 mg Metformin HCl (Glucophage) 250 mg PO BID [facility] Last Admin: 05/06/17 10:49 Dose: 250 mg Morphine Sulfate (Morphine) 2 mg IVPUSH Q2H PRN PRN Reason: Pain (severe 7-10) Last Admin: 05/06/17 01:55 Dose: 2 mg Metronidazole 0.75% (Cream) 1 applic TOP DAILY [facility] Last Admin: 05/06/17 09:45 Dose: 1 applic Quetiapine Fumarate (Seroquel) 200 mg PO DAILY@0700,1100 [facility] Last Admin: 05/06/17 14:16 Dose: 200 mg Quetiapine Fumarate (Seroquel) 400 mg PO BEDTIME [facility] Last Admin: 05/05/17 19:55 Dose: 400 mg Quetiapine Fumarate (Seroquel) 50 mg PO BEDTIME [facility] Last Admin: 05/05/17 19:53 Dose: 50 mg Discontinued Medications Hydrocodone Bitart/Acetaminophen ([place] 325-5 Mg) 0.5 tab PO Q4H PRN PRN Reason: Pain (moderate 4-6) Last Admin: 05/04/17 13:51 Dose: 0.5 tab Calcitonin [place] (Miacalcin Nasal [place]) 0 ml MIKY DAILY [facility] Last Admin: 05/04/17 08:14 Dose: 1 spray Haloperidol Lactate (Haldol) Confirm Administered Dose 5 mg .ROUTE .STK-MED ONE Stop: 05/01/17 21:31 Last Admin: 05/02/17 03:32 Dose: Not Given Haloperidol Lactate (Haldol) 5 mg IVPUSH ONETIME ONE Stop: 05/01/17 21:01 Last Admin: 05/02/17 02:30 Dose: 2.5 mg Dextrose/Sodium Chloride (Dextrose 5%-1/2 Ns) 1,000 mls @ 125 mls/hr IV ASDIRECTED [facility] Stop: 05/03/17 00:09 Last Admin: 05/01/17 21:30 Dose: 125 mls/hr Lorazepam (Ativan) Confirm Administered Dose 2 mg .ROUTE .STK-MED ONE Stop: 05/01/17 21:31 Last Admin: 05/02/17 03:32 Dose: Not Given Lorazepam (Ativan) 2 mg IVPUSH ONETIME ONE Stop: 05/01/17 21:01 Last Admin: 05/02/17 02:35 Dose: 1 mg Lorazepam (Ativan) Confirm Administered Dose 2 mg .ROUTE .STK-MED ONE Stop: 05/05/17 15:27 Last Admin: 05/05/17 17:48 Dose: Not Given Lorazepam (Ativan) 2 mg IVPUSH ONETIME ONE Stop: 05/05/17 15:50 Last Admin: 05/05/17 15:40 Dose: 2 mg Non-Formulary Medication (Quetiapine [Seroquel Xr]) 1 tab PO [facility] Quetiapine Fumarate (Seroquel) 200 mg PO BID@0700,1100 [facility] Last Admin: 05/03/17 07:32 Dose: Not Given Quetiapine Fumarate (Seroquel) 450 mg PO DAILY@2000 [facility] Last Admin: 05/01/17 04:09 Dose: Not Given Quetiapine Fumarate (Seroquel) Confirm Administered Dose 400 mg .ROUTE .STK-MED ONE Stop: 05/03/17 19:38 Last Admin: 05/04/17 00:57 Dose: Not Given Tuberculin PPD (Aplisol) 5 unit IDERM ONETIME ONE Stop: 04/30/17 16:28 - Exam General: Alert, Cooperative, Sedated. No: Oriented HEENT: Pupils Equal, Pupils Reactive, EOMI, Mucous Membr. Moist/[place] Neck: Supple Lungs: Clear to Auscultation, Normal Respiratory Effort Cardiovascular: Regular Rate, Regular Rhythm GI/Abdominal Exam: Normal Bowel Sounds, Soft, Non-Tender, No Organomegaly, No Distention, No Abnormal Bruit, No Mass, Pelvis Stable (Male) Exam: Other (carpio draining clear urine) Extremities: Normal Inspection, Normal Range of Motion, Non-Tender, No Pedal Edema, Normal Capillary Refill - Problem List & Annotations (1) Neurogenic bladder SNOMED Code(s): 555795048 Code(s): N31.9 - NEUROMUSCULAR DYSFUNCTION OF BLADDER, UNSPECIFIED Status: Acute Current Visit: Yes (2) Subdural hemorrhage following injury SNOMED Code(s): 704724516 Code(s): S06.5X9A - TRAUM SUBDR HEM W LOC OF UNSP DURATION, INIT Status: Resolved Priority: High Current Visit: No Qualifiers: Encounter type: subsequent encounter Loss of consciousness presence/ duration: without LOC Qualified Code(s): S06.5X0D - Traumatic subdural hemorrhage without loss of consciousness, subsequent encounter - Problem List Review Problem List Initiated/Reviewed/Updated: Yes - Assessment Assessment:: Subdural Bleed Neurogenic bladder - Plan Plan:: Pt admit to swing bed for adjustment of psych. medications, pain management, constipation, overflow incontinence, strengthening, and decrease in intake. Dementia and adjustment of psych medications: Administer medications as pt tolerates, May crush and give in soft foods. With periods of agitation, start Ativan 0.5 mg tid as needed to keep pt comfortable and resting. Pain Management: Assess and treat headache and neck pain. Medications ordered for mild, moderate, and severe pain. Constipation: Rectal suppository or enema every 2-3 days as needed. Overflow incontinence: Carpio catheter to bedside drainage. weakness: PT/OT continue to offer strengthening/evaluation as pt has more periods of being alert/awake. decreased oral intake: IVD'cd Mechanical soft diet as tolerated, when alert. Diabetes with hyperglycemia: Monitor blood sugars. Offer Metformin when alert and able to swallow medication. 05/06/17 Agree with above 1 Subdural hematoma: Ct head repeated on 05/05/17 shows slight increase in the size of the right subdural hematoma maira 10-13mm and also there is a small fluid collection over the left side about 7mm which is new.Pt does seem to be clinically improving and presently is off Iv fluids and tolerating oral diet. I did call , Neurosurgeon second cutter. 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 reassured that happen some time. He did recommend to repeat Ct head in 1 month time from time of injury to make sure the hematoma is resolving( as patient has schizophrenia and is hard to monitor his neurologic status). 2) Neurogenic bladder: Pt has had chronic urinary retention for more than a month. He has been on carpio catheter for urinary drainage. Apparently Pt has not had successful clamping and drainage and her does not void well when off catheter. I have discussed patient with the urologistat [place]. Dr capellan does agree with this being neurogenic bladder issue , which will cause intermittent retention overflow. Considering his severe schizophrenia and age, Dr. Capellan's recommendation has been to try straight catheterizing this patient as needed. But patient in the past gets agitated when he needs cauterization, but once catheter is in place he does keep the carpio in place. does recommend continuos cauterization, as there is not much option available considering his co-morbid conditions,. Also the cholinergic effect of the antipsychotics he is on can make his neurogenic bladder and urinary retention worse. Per Dr Capellan's recommendation will try keeping patient on continuous cauterization weight the risks and benefits.
[2017-05-06] MEDS ORDERED: Haloperidol Lactate 5 MG/ML SDV IVPUSH ONE (21:25)
[2017-05-06] MEDS: Erythromycin Base 0.5% Ophth Oint 3.5 GM Tube EYERT SCH ×2 (21:28→21:29)
[2017-05-06] MEDS: Citalopram 20 MG Tab PO SCH ×2 (21:52)
[2017-05-07] MEDS: LORazepam 0.5 MG Tab PO PRN ×2 (00:30→09:03)
[2017-05-07] MEDS: Acetaminophen 325 MG Tab PO SCH ×2 (09:02→19:43)
[2017-05-07] MEDS: Lisinopril 10 MG Tab PO SCH (09:03)
[2017-05-07] MEDS: Docusate Sodium 100 MG Cap PO PRN (09:03)
[2017-05-07] MEDS: metFORMIN 500 MG Tab PO SCH ×2 (09:03→19:44)
[2017-05-07] MEDS: Calcitonin (Salmon) Nasal Spray 3.7 ML Bottle NAS SCH (09:14)
[2017-05-07] MEDS: Morphine 2 MG/ML Syringe IVPUSH PRN (09:16)
[2017-05-07] MEDS: Acetaminophen/HYDROcodone 325-5 MG Tab PO PRN ×2 (11:08→19:44)
[2017-05-07] MEDS: Erythromycin Base 0.5% Ophth Oint 3.5 GM Tube EYERT SCH (19:48)
[2017-05-07] MEDS: Citalopram 20 MG Tab PO SCH (19:48)
[2017-05-08] MEDS: LORazepam 0.5 MG Tab PO PRN ×2 (02:21→21:02)
[2017-05-08] MEDS: Acetaminophen/HYDROcodone 325-5 MG Tab PO PRN (03:22)
[2017-05-08] MEDS: metFORMIN 500 MG Tab PO SCH ×2 (08:46→21:04)
[2017-05-08] MEDS: Lisinopril 10 MG Tab PO SCH (08:46)
[2017-05-08] MEDS: Acetaminophen 325 MG Tab PO SCH ×2 (08:54→21:04)
[2017-05-08] MEDS: Calcitonin (Salmon) Nasal Spray 3.7 ML Bottle NAS SCH (09:08)
[2017-05-08] MEDS: Morphine 2 MG/ML Syringe IVPUSH PRN (11:45)
[2017-05-08] MEDS: Citalopram 20 MG Tab PO SCH (21:02)
[2017-05-08] MEDS: Erythromycin Base 0.5% Ophth Oint 3.5 GM Tube EYERT SCH (21:04)
[2017-05-09] MEDS: Lisinopril 10 MG Tab PO SCH (08:38)
[2017-05-09] MEDS: Acetaminophen 325 MG Tab PO SCH ×2 (08:38→21:29)
[2017-05-09] MEDS: metFORMIN 500 MG Tab PO SCH ×2 (08:59→21:03)
[2017-05-09] MEDS: Calcitonin (Salmon) Nasal Spray 3.7 ML Bottle NAS SCH (11:30)
[2017-05-09] MEDS: Morphine 2 MG/ML Syringe IVPUSH PRN ×2 (18:18→20:55)
[2017-05-09] MEDS: Erythromycin Base 0.5% Ophth Oint 3.5 GM Tube EYERT SCH (20:40)
[2017-05-09] MEDS: LORazepam 0.5 MG Tab PO PRN (21:28)
[2017-05-09] MEDS: Citalopram 20 MG Tab PO SCH (21:30)
[2017-05-10] MEDS: Morphine 2 MG/ML Syringe IVPUSH PRN ×4 (00:03→19:05)
[2017-05-10] MEDS: Bisacodyl 10 MG Supp RECTAL PRN (06:58)
[2017-05-10] MEDS: LORazepam 0.5 MG Tab PO PRN (08:05)
[2017-05-10] MEDS: Lisinopril 10 MG Tab PO SCH (12:17)
[2017-05-10] MEDS: Calcitonin (Salmon) Nasal Spray 3.7 ML Bottle NAS SCH (12:17)
[2017-05-10] MEDS: Acetaminophen 325 MG Tab PO SCH ×2 (12:18→20:14)
--- NOTE | 2017-05-10 12:39 | PCM.PN ---
- General Info Date of Service: 05/10/17 Subjective Update: Apparently patient has been slightly agitated today. he has been trying to get out of the bed and wander. Presently sleeping. Running a temp of 100 F now. No cough, chills. Not in discomfort or distress. Functional Status: Reports: Tolerating Diet - Review of Systems General: Reports: Other (hard to take from patient due to severe schizophrenia with dementia) - Patient Data Vitals - Most Recent: Last Vital Signs Temp 99.4 F 05/09/17 08:00 Pulse 106 H 05/10/17 02:39 Resp 16 05/10/17 02:39 BP 135/58 L 05/10/17 02:39 Pulse Ox 94 L 05/10/17 02:39 Weight - Most Recent: 70.307 kg I&O - Last 24 Hours: Intake & Output 05/09/17 05/10/17 05/10/17 22:59 06:59 14:59 Intake Total 850 100 Output Total 300 300 Balance 550 -200 Lab Results Last 24 Hours: Laboratory Results - last 24 hr 05/09/17 05/09/17 Range/Units 07:44 16:43 POC Glucose 141 H 161 H (74-110) mg/dL Med Orders - Current: Current Medications Acetaminophen (Tylenol) 650 mg PO BID [facility] Last Admin: 05/10/17 12:18 Dose: Not Given Hydrocodone Bitart/Acetaminophen ([place] 325-5 Mg) 1 tab PO Q4H PRN PRN Reason: Pain (moderate 4-6) Last Admin: 05/08/17 03:22 Dose: 1 tab Bisacodyl (Dulcolax) 10 mg RECTAL DAILY PRN PRN Reason: Constipation Last Admin: 05/10/17 06:58 Dose: 10 mg Calcitonin [place] (Miacalcin Nasal [place]) 3.7 ml MIKY DAILY [facility] Last Admin: 05/10/17 12:17 Dose: Not Given Citalopram Hydrobromide (Celexa) 20 mg PO BEDTIME [facility] Last Admin: 05/09/17 21:30 Dose: Not Given Docusate Sodium (Colace) 100 mg PO BID PRN PRN Reason: constipation Last Admin: 05/07/17 09:03 Dose: 100 mg Erythromycin (Erythromycin 0.5% Ophth Oint) 0 gm EYERT BEDTIME [facility] Last Admin: 05/09/17 20:40 Dose: Not Given Sodium Chloride (Normal Saline) 1,000 mls @ 125 mls/hr IV ASDIRECTED [facility] Last Admin: 05/01/17 10:50 Dose: 125 mls/hr Lisinopril (Prinivil) 10 mg PO DAILY [facility] Last Admin: 05/10/17 12:17 Dose: Not Given Lorazepam (Ativan) 0.5 mg PO Q8H PRN PRN Reason: Anxiety Last Admin: 05/09/17 21:28 Dose: 0.5 mg Metformin HCl (Glucophage) 250 mg PO BIDMEALS [facility] Morphine Sulfate (Morphine) 2 mg IVPUSH Q2H PRN PRN Reason: Pain (severe 7-10) Last Admin: 05/10/17 00:03 Dose: 2 mg Metronidazole 0.75% (Cream) 1 applic TOP DAILY [facility] Last Admin: 05/10/17 12:16 Dose: Not Given Quetiapine Fumarate (Seroquel) 200 mg PO DAILY@0700,1100 [facility] Last Admin: 05/09/17 11:30 Dose: 200 mg Quetiapine Fumarate (Seroquel) 400 mg PO BEDTIME [facility] Last Admin: 05/09/17 21:29 Dose: 400 mg Quetiapine Fumarate (Seroquel) 50 mg PO BEDTIME [facility] Last Admin: 05/09/17 21:29 Dose: 50 mg Discontinued Medications Hydrocodone Bitart/Acetaminophen ([place] 325-5 Mg) 0.5 tab PO Q4H PRN PRN Reason: Pain (moderate 4-6) Last Admin: 05/04/17 13:51 Dose: 0.5 tab Calcitonin [place] (Miacalcin Nasal [place]) 0 ml MIKY DAILY [facility] Last Admin: 05/04/17 08:14 Dose: 1 spray Haloperidol Lactate (Haldol) Confirm Administered Dose 5 mg .ROUTE .STK-MED ONE Stop: 05/01/17 21:31 Last Admin: 05/02/17 03:32 Dose: Not Given Haloperidol Lactate (Haldol) 5 mg IVPUSH ONETIME ONE Stop: 05/01/17 21:01 Last Admin: 05/02/17 02:30 Dose: 2.5 mg Haloperidol Lactate (Haldol) 5 mg IVPUSH ONETIME ONE Stop: 05/06/17 21:26 Last Admin: 05/07/17 06:51 Dose: Not Given Dextrose/Sodium Chloride (Dextrose 5%-1/2 Ns) 1,000 mls @ 125 mls/hr IV ASDIRECTED [facility] Stop: 05/03/17 00:09 Last Admin: 05/01/17 21:30 Dose: 125 mls/hr Lorazepam (Ativan) Confirm Administered Dose 2 mg .ROUTE .ST-MED ONE Stop: 05/01/17 21:31 Last Admin: 05/02/17 03:32 Dose: Not Given Lorazepam (Ativan) 2 mg IVPUSH ONETIME ONE Stop: 05/01/17 21:01 Last Admin: 05/02/17 02:35 Dose: 1 mg Lorazepam (Ativan) Confirm Administered Dose 2 mg .ROUTE .[facility]-MED ONE Stop: 05/05/17 15:27 Last Admin: 05/05/17 17:48 Dose: Not Given Lorazepam (Ativan) 2 mg IVPUSH ONETIME ONE Stop: 05/05/17 15:50 Last Admin: 05/05/17 15:40 Dose: 2 mg Metformin HCl (Glucophage) 250 mg PO BID [facility] Last Admin: 05/09/17 21:03 Dose: Not Given Non-Formulary Medication (Quetiapine [Seroquel Xr]) 1 tab PO ACLUNCH [facility] Quetiapine Fumarate (Seroquel) 200 mg PO BID@0700,1100 [facility] Last Admin: 05/03/17 07:32 Dose: Not Given Quetiapine Fumarate (Seroquel) 450 mg PO DAILY@2000 [facility] Last Admin: 05/01/17 04:09 Dose: Not Given Quetiapine Fumarate (Seroquel) Confirm Administered Dose 400 mg .ROUTE .[facility]-MED ONE Stop: 05/03/17 19:38 Last Admin: 05/04/17 00:57 Dose: Not Given Quetiapine Fumarate (Seroquel) Confirm Administered Dose 200 mg .ROUTE .[facility]-MED ONE Stop: 05/10/17 08:02 Tuberculin PPD (Aplisol) 5 unit IDERM ONETIME ONE Stop: 04/30/17 16:28 - Exam General: Alert HEENT: Pupils Equal, Pupils Reactive, EOMI, Mucous Membr. Moist/[place] Neck: Supple Lungs: Clear to Auscultation, Normal Respiratory Effort Cardiovascular: Regular Rate, Regular Rhythm GI/Abdominal Exam: Normal Bowel Sounds, Soft, Non-Tender, No Organomegaly, No Distention, No Abnormal Bruit, No Mass, Pelvis Stable, Other (Catheter draining urine) Extremities: Normal Inspection - Problem List & Annotations (1) Neurogenic bladder SNOMED Code(s): 130707379 Code(s): N31.9 - NEUROMUSCULAR DYSFUNCTION OF BLADDER, UNSPECIFIED Status: Acute Current Visit: Yes (2) Fever SNOMED Code(s): 765577835 Code(s): R50.9 - FEVER, UNSPECIFIED Status: Acute Current Visit: Yes - Problem List Review Problem List Initiated/Reviewed/Updated: Yes - My Orders Last 24 Hours: My Active Orders 05/10/17 12:30 Chest 1V Frontal [CR] Routine CBC WITH AUTO DIFF [HEME] Stat UA W/MICROSCOPIC [URIN] Stat - Assessment Assessment:: Fever - Plan Plan:: Pt admit to swing bed for adjustment of psych. medications, pain management, constipation, overflow incontinence, strengthening, and decrease in intake. Dementia and adjustment of psych medications: Administer medications as pt tolerates, May crush and give in soft foods. With periods of agitation, start Ativan 0.5 mg tid as needed to keep pt comfortable and resting. Pain Management: Assess and treat headache and neck pain. Medications ordered for mild, moderate, and severe pain. Constipation: Rectal suppository or enema every 2-3 days as needed. Overflow incontinence: Carpio catheter to bedside drainage. weakness: PT/OT continue to offer strengthening/evaluation as pt has more periods of being alert/awake. decreased oral intake: IVD'cd Mechanical soft diet as tolerated, when alert. Diabetes with hyperglycemia: Monitor blood sugars. Offer Metformin when alert and able to swallow medication. 05/06/17 Agree with above 1 Subdural hematoma: Ct head repeated on 05/05/17 shows slight increase in the size of the right subdural hematoma maira 10-13mm and also there is a small fluid collection over the left side about 7mm which is new.Pt does seem to be clinically improving and presently is off Iv fluids and tolerating oral diet. I did call , Neurosurgeon cotton picking machine operator. 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 reassured that happen some time. He did recommend to repeat Ct head in 1 month time from time of injury to make sure the hematoma is resolving( as patient has schizophrenia and is hard to monitor his neurologic status). 2) Neurogenic bladder: Pt has had chronic urinary retention for more than a month. He has been on carpio catheter for urinary drainage. Apparently Pt has not had successful clamping and drainage and her does not void well when off catheter. I have discussed patient with the [facility]at [facility]. Dr capellan does agree with this being neurogenic bladder issue , which will cause intermittent retention overflow. Considering his severe schizophrenia and age, Dr. Capellan's recommendation has been to try straight catheterizing this patient as needed. But patient in the past gets agitated when he needs cauterization, but once catheter is in place he does keep the carpio in place. does recommend continuos cauterization, as there is not much option available considering his co-morbid conditions,. Also the cholinergic effect of the antipsychotics he is on can make his neurogenic bladder and urinary retention worse. Per Dr Capellan's recommendation will try keeping patient on continuous cauterization weight the risks and benefits. 05/10/17 Pt is running low grade fever just now, with his dementia and schizophrenia, hard to take any history from patient. No change in status. Clinical exam of patient is normal. refusing tylenol. Will get workup with CBC , UA and chest xray and followup with result. His CBC and Chest xray are normal. UA has not been done. This could be transient elevation of the temperature. Will monitor him closely. If he continues to spike will work it up.
[2017-05-10] MEDS: metFORMIN 500 MG Tab PO SCH ×2 (18:32→20:14)
[2017-05-10] MEDS ORDERED: LORazepam 2 MG/ML MDV ONE (19:08)
[2017-05-10] MEDS: Erythromycin Base 0.5% Ophth Oint 3.5 GM Tube EYERT SCH (20:14)
[2017-05-10] MEDS: Citalopram 20 MG Tab PO SCH (20:14)
[2017-05-10] MEDS ORDERED: Ciprofloxacin 500 MG Tab ONE (23:05)
[2017-05-10] MEDS: Ciprofloxacin 500 MG Tab PO SCH (23:13)
[2017-05-11] MEDS: Morphine 2 MG/ML Syringe IVPUSH PRN (05:13)
--- NOTE | 2017-05-11 10:22 | CR ---
DATE OF SERVICE: 05/10/2017 CLINICAL DATA: Fever. AP PORTABLE CHEST Comparison is made to a prior exam dated 03/17/2014. The patient is rotated to the left. The heart size is normal. There is calcification of the aortic arch. There are multiple calcified nodules on the right that were present on the prior exam. They are also noted on a prior CT. The lungs are otherwise clear. No pneumothorax. No pleural effusions. No areas of consolidation. [id number] MTDD
[2017-05-11] MEDS: metFORMIN 500 MG Tab PO SCH ×2 (13:51→18:18)
[2017-05-11] MEDS: Ciprofloxacin 500 MG Tab PO SCH (13:52)
[2017-05-11] MEDS: Calcitonin (Salmon) Nasal Spray 3.7 ML Bottle NAS SCH (13:53)
[2017-05-11] MEDS: Acetaminophen 325 MG Tab PO SCH ×2 (13:57→21:50)
[2017-05-11] MEDS: Lisinopril 10 MG Tab PO SCH (17:38)
[2017-05-11] MEDS: Citalopram 20 MG Tab PO SCH (19:31)
[2017-05-11] MEDS: Erythromycin Base 0.5% Ophth Oint 3.5 GM Tube EYERT SCH (19:31)
[2017-05-11] MEDS: Acetaminophen/HYDROcodone 325-5 MG Tab PO PRN (19:57)
[2017-05-11] MEDS: LORazepam 0.5 MG Tab PO PRN (21:55)
[2017-05-12] MEDS: Ciprofloxacin 500 MG Tab PO SCH ×4 (01:23→21:09)
[2017-05-12] MEDS: Acetaminophen/HYDROcodone 325-5 MG Tab PO PRN (04:37)
[2017-05-12] MEDS: Lisinopril 10 MG Tab PO SCH (08:24)
[2017-05-12] MEDS: Acetaminophen 325 MG Tab PO SCH ×2 (08:24→21:10)
[2017-05-12] MEDS: metFORMIN 500 MG Tab PO SCH ×2 (08:25→18:21)
[2017-05-12] MEDS: Citalopram 20 MG Tab PO SCH (21:09)
[2017-05-12] MEDS: Erythromycin Base 0.5% Ophth Oint 3.5 GM Tube EYERT SCH (21:11)
[2017-05-12] MEDS: Morphine 2 MG/ML Syringe IVPUSH PRN (22:05)
[2017-05-13] MEDS: LORazepam 2 MG/ML MDV IVPUSH PRN (01:01)
[2017-05-13] MEDS: Acetaminophen 325 MG Tab PO SCH ×2 (09:37→20:29)
[2017-05-13] MEDS: metFORMIN 500 MG Tab PO SCH ×2 (09:39→20:30)
[2017-05-13] MEDS: Ciprofloxacin 500 MG Tab PO SCH ×2 (09:39→20:31)
[2017-05-13] MEDS: Lisinopril 10 MG Tab PO SCH (09:47)
[2017-05-13] MEDS: Calcitonin (Salmon) Nasal Spray 3.7 ML Bottle NAS SCH (14:58)
[2017-05-13] MEDS: Citalopram 20 MG Tab PO SCH (20:30)
[2017-05-13] MEDS: Erythromycin Base 0.5% Ophth Oint 3.5 GM Tube EYERT SCH (20:31)
[2017-05-13] MEDS: Acetaminophen/HYDROcodone 325-5 MG Tab PO PRN (20:33)
[2017-05-13] MEDS: LORazepam 0.5 MG Tab PO PRN (20:35)
[2017-05-14] MEDS: Lisinopril 10 MG Tab PO SCH (09:40)
[2017-05-14] MEDS: metFORMIN 500 MG Tab PO SCH ×2 (09:42→17:00)
[2017-05-14] MEDS: Ciprofloxacin 500 MG Tab PO SCH ×2 (09:43→20:32)
[2017-05-14] MEDS: Acetaminophen 325 MG Tab PO SCH ×2 (09:43→20:30)
[2017-05-14] MEDS: Calcitonin (Salmon) Nasal Spray 3.7 ML Bottle NAS SCH ×2 (10:21→10:22)
[2017-05-14] MEDS: Acetaminophen/HYDROcodone 325-5 MG Tab PO PRN ×2 (13:39→20:30)
[2017-05-14] MEDS: LORazepam 2 MG/ML MDV IVPUSH PRN (15:02)
[2017-05-14] MEDS: Morphine 2 MG/ML Syringe IVPUSH PRN ×2 (16:15→23:45)
[2017-05-14] MEDS: Erythromycin Base 0.5% Ophth Oint 3.5 GM Tube EYERT SCH (20:00)
[2017-05-14] MEDS: LORazepam 0.5 MG Tab PO PRN (20:32)
[2017-05-14] MEDS: Citalopram 20 MG Tab PO SCH (20:32)
[2017-05-15] MEDS: Morphine 2 MG/ML Syringe IVPUSH PRN ×2 (03:47→15:05)
[2017-05-15] MEDS: metFORMIN 500 MG Tab PO SCH ×2 (11:47→18:51)
[2017-05-15] MEDS: Acetaminophen 325 MG Tab PO SCH ×2 (11:47→20:52)
[2017-05-15] MEDS: Calcitonin (Salmon) Nasal Spray 3.7 ML Bottle NAS SCH (11:48)
[2017-05-15] MEDS: Ciprofloxacin 500 MG Tab PO SCH ×2 (11:50→20:48)
[2017-05-15] MEDS: Lisinopril 10 MG Tab PO SCH (11:50)
[2017-05-15] MEDS: LORazepam 2 MG/ML MDV IVPUSH PRN (15:30)
[2017-05-15] MEDS: Erythromycin Base 0.5% Ophth Oint 3.5 GM Tube EYERT SCH (20:48)
[2017-05-15] MEDS: Acetaminophen/HYDROcodone 325-5 MG Tab PO PRN (20:49)
[2017-05-15] MEDS: Citalopram 20 MG Tab PO SCH (20:49)
[2017-05-16] MEDS: Lisinopril 10 MG Tab PO SCH (08:10)
[2017-05-16] MEDS: Acetaminophen/HYDROcodone 325-5 MG Tab PO PRN ×2 (08:10→21:15)
[2017-05-16] MEDS: Ciprofloxacin 500 MG Tab PO SCH ×2 (08:11→20:20)
[2017-05-16] MEDS ORDERED: Magnesium Hydroxide 400 MG/5 ML Susp 30 ML Cup ONE (10:02)
[2017-05-16] MEDS: Morphine 2 MG/ML Syringe IVPUSH PRN (10:30)
[2017-05-16] MEDS: Acetaminophen 325 MG Tab PO SCH ×2 (11:17→20:21)
[2017-05-16] MEDS: metFORMIN 500 MG Tab PO SCH ×2 (11:17→19:27)
[2017-05-16] MEDS: Calcitonin (Salmon) Nasal Spray 3.7 ML Bottle NAS SCH (11:17)
[2017-05-16] MEDS: LORazepam 2 MG/ML MDV IVPUSH PRN (15:40)
[2017-05-16] MEDS: Erythromycin Base 0.5% Ophth Oint 3.5 GM Tube EYERT SCH (20:20)
[2017-05-16] MEDS: Citalopram 20 MG Tab PO SCH (20:20)
[2017-05-16] MEDS: LORazepam 0.5 MG Tab PO PRN (20:23)
[2017-05-17] MEDS ORDERED: Menthol/Zinc Oxide Ointment 113 GM Tube TOP ONE (08:00)
[2017-05-17] MEDS: Acetaminophen 325 MG Tab PO SCH ×2 (08:36→20:50)
[2017-05-17] MEDS: Lisinopril 10 MG Tab PO SCH (08:37)
[2017-05-17] MEDS: metFORMIN 500 MG Tab PO SCH ×2 (08:38→18:30)
[2017-05-17] MEDS: Calcitonin (Salmon) Nasal Spray 3.7 ML Bottle NAS SCH (08:38)
[2017-05-17] MEDS: Ciprofloxacin 500 MG Tab PO SCH ×2 (08:38→20:48)
[2017-05-17] MEDS: Morphine 2 MG/ML Syringe IVPUSH PRN (20:05)
[2017-05-17] MEDS: Citalopram 20 MG Tab PO SCH (20:48)
[2017-05-17] MEDS: LORazepam 0.5 MG Tab PO PRN (20:49)
[2017-05-17] MEDS: Erythromycin Base 0.5% Ophth Oint 3.5 GM Tube EYERT SCH (20:51)
[2017-05-17] MEDS: Acetaminophen/HYDROcodone 325-5 MG Tab PO PRN (21:00)
[2017-05-18] MEDS: Acetaminophen 325 MG Tab PO SCH ×2 (08:04→21:37)
[2017-05-18] MEDS: Ciprofloxacin 500 MG Tab PO SCH ×2 (08:04→20:08)
[2017-05-18] MEDS: metFORMIN 500 MG Tab PO SCH ×2 (08:04→20:08)
[2017-05-18] MEDS: Lisinopril 10 MG Tab PO SCH (08:05)
[2017-05-18] MEDS: Morphine 2 MG/ML Syringe IVPUSH PRN ×3 (10:00→20:02)
[2017-05-18] MEDS: Calcitonin (Salmon) Nasal Spray 3.7 ML Bottle NAS SCH (11:43)
[2017-05-18] MEDS ORDERED: Acetaminophen/HYDROcodone 325-5 MG Tab ONE (19:39)
[2017-05-18] MEDS: Citalopram 20 MG Tab PO SCH (20:08)
[2017-05-18] MEDS: Acetaminophen/HYDROcodone 325-5 MG Tab PO PRN (21:00)
[2017-05-18] MEDS: Erythromycin Base 0.5% Ophth Oint 3.5 GM Tube EYERT SCH (21:35)
[2017-05-19] MEDS ORDERED: Acetaminophen 325 MG Tab ONE (08:13)
[2017-05-19] MEDS: Lisinopril 10 MG Tab PO SCH (08:30)
[2017-05-19] MEDS: Acetaminophen 325 MG Tab PO SCH ×2 (08:30→21:07)
[2017-05-19] MEDS: Calcitonin (Salmon) Nasal Spray 3.7 ML Bottle NAS SCH (08:31)
[2017-05-19] MEDS: metFORMIN 500 MG Tab PO SCH ×2 (08:31→17:07)
[2017-05-19] MEDS: Ciprofloxacin 500 MG Tab PO SCH (08:31)
[2017-05-19] MEDS: Acetaminophen/HYDROcodone 325-5 MG Tab PO PRN ×2 (15:20→21:00)
[2017-05-19] MEDS: LORazepam 0.5 MG Tab PO PRN ×2 (17:27→22:58)
[2017-05-19] MEDS: Erythromycin Base 0.5% Ophth Oint 3.5 GM Tube EYERT SCH (20:36)
[2017-05-19] MEDS: Citalopram 20 MG Tab PO SCH (20:36)
[2017-05-20] MEDS: metFORMIN 500 MG Tab PO SCH ×2 (08:47→17:28)
[2017-05-20] MEDS: Lisinopril 10 MG Tab PO SCH (08:51)
[2017-05-20] MEDS: Acetaminophen 325 MG Tab PO SCH ×2 (08:51→19:44)
[2017-05-20] MEDS: Calcitonin (Salmon) Nasal Spray 3.7 ML Bottle NAS SCH (09:08)
--- NOTE | 2017-05-20 17:14 | PCM.PN ---
- General Info Date of Service: 05/20/17 Subjective Update: Patient is verbal but slightly agitated. He does appear much more comfortable since starting his new medication regiment per Dr. Thrasher. Functional Status: Reports: Pain Controlled, Tolerating Diet - Review of Systems General: Reports: Other (Unable to obtain thorough ROS from patient due to deafness and difficulty with communication) Cardiovascular: Reports: No Symptoms Genitourinary: Reports: No Symptoms Musculoskeletal: Reports: No Symptoms - Patient Data Vitals - Most Recent: Last Vital Signs Temp 36.9 C 05/20/17 08:00 Pulse 98 05/20/17 08:00 Resp 18 05/20/17 08:00 BP 129/61 05/20/17 08:51 Pulse Ox 93 L 05/20/17 08:00 Weight - Most Recent: 60.237 kg I&O - Last 24 Hours: Intake & Output 05/20/17 05/20/17 05/20/17 06:59 14:59 22:59 Intake Total 100 Output Total 250 Balance -150 Lab Results Last 24 Hours: Laboratory Results - last 24 hr 05/20/17 Range/Units 07:38 POC Glucose 157 H (74-110) mg/dL Med Orders - Current: Current Medications Acetaminophen (Tylenol) 650 mg PO BID [facility] Last Admin: 05/20/17 08:51 Dose: 650 mg Hydrocodone Bitart/Acetaminophen ([place] 325-5 Mg) 1 tab PO Q4H PRN PRN Reason: Pain (moderate 4-6) Last Admin: 05/19/17 21:00 Dose: 1 tab Bisacodyl (Dulcolax) 10 mg RECTAL DAILY PRN PRN Reason: Constipation Last Admin: 05/10/17 06:58 Dose: 10 mg Calcitonin [place] (Miacalcin Nasal [place]) 3.7 ml MIKY DAILY [facility] Last Admin: 05/20/17 09:08 Dose: 1 spray Citalopram Hydrobromide (Celexa) 20 mg PO BEDTIME [facility] Last Admin: 05/19/17 20:36 Dose: 20 mg Docusate Sodium (Colace) 100 mg PO BID PRN PRN Reason: constipation Last Admin: 05/07/17 09:03 Dose: 100 mg Erythromycin (Erythromycin 0.5% Ophth Oint) 0 gm EYERT BEDTIME [facility] Last Admin: 05/19/17 20:36 Dose: 1 drop Lisinopril (Prinivil) 10 mg PO DAILY [facility] Last Admin: 05/20/17 08:51 Dose: 10 mg Lorazepam (Ativan) 0.5 mg PO Q8H PRN PRN Reason: Anxiety Last Admin: 05/19/17 22:58 Dose: 0.5 mg Lorazepam (Ativan) 1 mg IVPUSH Q4H PRN PRN Reason: Anxiety Last Admin: 05/16/17 15:40 Dose: 1 mg Metformin HCl (Glucophage) 250 mg PO BIDMEALS [facility] Last Admin: 05/20/17 08:47 Dose: 250 mg Morphine Sulfate (Morphine) 2 mg IVPUSH Q2H PRN PRN Reason: Pain (severe 7-10) Last Admin: 05/18/17 20:02 Dose: 2 mg Metronidazole 0.75% (Cream) 1 applic TOP DAILY [facility] Last Admin: 05/20/17 09:03 Dose: 1 applic Quetiapine Fumarate (Seroquel) 450 mg PO BEDTIME [facility] Last Admin: 05/19/17 20:36 Dose: 450 mg Quetiapine Fumarate (Seroquel) 200 mg PO DAILY@0700,1100 [facility] Last Admin: 05/20/17 12:39 Dose: 200 mg Quetiapine Fumarate (Seroquel) 50 mg PO DAILY@0700,1100 [facility] Last Admin: 05/20/17 12:39 Dose: 50 mg Discontinued Medications Acetaminophen (Tylenol) Confirm Administered Dose 325 mg .ROUTE .STK-MED ONE Stop: 05/19/17 08:14 Last Admin: 05/19/17 08:28 Dose: 325 mg Hydrocodone Bitart/Acetaminophen ([place] 325-5 Mg) 0.5 tab PO Q4H PRN PRN Reason: Pain (moderate 4-6) Last Admin: 05/04/17 13:51 Dose: 0.5 tab Hydrocodone Bitart/Acetaminophen ([place] 325-5 Mg) Confirm Administered Dose 1 tab .ROUTE .STK-MED ONE Stop: 05/18/17 19:40 Last Admin: 05/18/17 21:39 Dose: Not Given Calamine/Phenol (Calmoseptine) 113 gm TOP .STK-MED ONE Stop: 05/17/17 08:01 Calcitonin [place] (Miacalcin Nasal [place]) 0 ml MIKY DAILY [facility] Last Admin: 05/04/17 08:14 Dose: 1 spray Ciprofloxacin (Ciprofloxacin Hcl) 500 mg PO BID [facility] Last Admin: 05/19/17 08:31 Dose: 500 mg Ciprofloxacin (Ciprofloxacin Hcl) Confirm Administered Dose 500 mg .ROUTE .STK- MED ONE Stop: 05/10/17 23:06 Last Admin: 05/10/17 23:12 Dose: 500 mg Haloperidol Lactate (Haldol) Confirm Administered Dose 5 mg .ROUTE .STK-MED ONE Stop: 05/01/17 21:31 Last Admin: 05/02/17 03:32 Dose: Not Given Haloperidol Lactate (Haldol) 5 mg IVPUSH ONETIME ONE Stop: 05/01/17 21:01 Last Admin: 05/02/17 02:30 Dose: 2.5 mg Haloperidol Lactate (Haldol) 5 mg IVPUSH ONETIME ONE Stop: 05/06/17 21:26 Last Admin: 05/07/17 06:51 Dose: Not Given Sodium Chloride (Normal Saline) 1,000 mls @ 125 mls/hr IV ASDIRECTED [facility] Last Admin: 05/01/17 10:50 Dose: 125 mls/hr Dextrose/Sodium Chloride (Dextrose 5%-1/2 Ns) 1,000 mls @ 125 mls/hr IV ASDIRECTED [facility] Stop: 05/03/17 00:09 Last Admin: 05/01/17 21:30 Dose: 125 mls/hr Lorazepam (Ativan) Confirm Administered Dose 2 mg .ROUTE .STK-MED ONE Stop: 05/01/17 21:31 Last Admin: 05/02/17 03:32 Dose: Not Given Lorazepam (Ativan) 2 mg IVPUSH ONETIME ONE Stop: 05/01/17 21:01 Last Admin: 05/02/17 02:35 Dose: 1 mg Lorazepam (Ativan) Confirm Administered Dose 2 mg .ROUTE .STK-MED ONE Stop: 05/05/17 15:27 Last Admin: 05/05/17 17:48 Dose: Not Given Lorazepam (Ativan) 2 mg IVPUSH ONETIME ONE Stop: 05/05/17 15:50 Last Admin: 05/05/17 15:40 Dose: 2 mg Lorazepam (Ativan) Confirm Administered Dose 2 mg .ROUTE .STK-MED ONE Stop: 05/10/17 19:09 Last Admin: 05/10/17 19:10 Dose: 2 mg Magnesium Hydroxide (Milk Of Magnesia) Confirm Administered Dose 30 ml .ROUTE .STK-MED ONE Stop: 05/16/17 10:03 Last Admin: 05/16/17 08:30 Dose: 30 ml Metformin HCl (Glucophage) 250 mg PO BID [facility] Last Admin: 05/09/17 21:03 Dose: Not Given Non-Formulary Medication (Quetiapine [Seroquel Xr]) 1 tab PO ACLUNCH [facility] Quetiapine Fumarate (Seroquel) 200 mg PO BID@0700,1100 [facility] Last Admin: 05/03/17 07:32 Dose: Not Given Quetiapine Fumarate (Seroquel) 450 mg PO DAILY@2000 [facility] Last Admin: 05/01/17 04:09 Dose: Not Given Quetiapine Fumarate (Seroquel) 200 mg PO DAILY@0700,1100 [facility] Last Admin: 05/10/17 21:46 Dose: Not Given Quetiapine Fumarate (Seroquel) 400 mg PO BEDTIME [facility] Last Admin: 05/10/17 19:19 Dose: 400 mg Quetiapine Fumarate (Seroquel) 50 mg PO BEDTIME [facility] Last Admin: 05/10/17 20:41 Dose: 50 mg Quetiapine Fumarate (Seroquel) Confirm Administered Dose 400 mg .ROUTE .STK-MED ONE Stop: 05/03/17 19:38 Last Admin: 05/04/17 00:57 Dose: Not Given Quetiapine Fumarate (Seroquel) Confirm Administered Dose 200 mg .ROUTE .STK-MED ONE Stop: 05/10/17 08:02 Last Admin: 05/10/17 20:41 Dose: Not Given Quetiapine Fumarate (Seroquel) 250 mg PO 0700,1100 [facility] Last Admin: 05/12/17 06:43 Dose: 250 mg Quetiapine Fumarate (Seroquel) Confirm Administered Dose 50 mg .ROUTE .STK-MED ONE Stop: 05/11/17 06:54 Last Admin: 05/11/17 11:55 Dose: Not Given Quetiapine Fumarate (Seroquel) Confirm Administered Dose 50 mg .ROUTE .STK-MED ONE Stop: 05/14/17 13:32 Last Admin: 05/14/17 13:35 Dose: Not Given Tuberculin PPD (Aplisol) 5 unit IDERM ONETIME ONE Stop: 04/30/17 16:28 - Exam HEENT: Pupils Equal, Pupils Reactive, EOMI Neck: Supple Lungs: Clear to Auscultation, Normal Respiratory Effort Cardiovascular: Regular Rate, Regular Rhythm GI/Abdominal Exam: Normal Bowel Sounds, Soft, Non-Tender Back Exam: Normal Inspection Extremities: Normal Inspection Peripheral Pulses: 2+: Dorsalis Pedis (L), Dorsalis Pedis (R) Skin: Warm, Dry, Intact Neurological: No New Focal Deficit Psy/Mental Status: Labile Mood, Anxious, Agitated, Hallucinations - Problem List & Annotations (1) Head pain cephalgia SNOMED Code(s): 78130198 Code(s): R51 - HEADACHE Status: Acute Priority: Medium Current Visit: Yes Qualifiers: Headache type: post-traumatic Headache chronicity pattern: acute headache Intractability: not intractable Qualified Code(s): G44.319 - Acute post- traumatic headache, not intractable (2) Neurogenic bladder SNOMED Code(s): 585489193 Code(s): N31.9 - NEUROMUSCULAR DYSFUNCTION OF BLADDER, UNSPECIFIED Status: Acute Current Visit: Yes (3) Dementia associated with other underlying disease Code(s): F03.91 - UNSPECIFIED DEMENTIA WITH BEHAVIORAL DISTURBANCE Status: Chronic Priority: High Current Visit: Yes Qualifiers: Dementia behavioral disturbance: with behavioral disturbance Qualified Code (s): F02.81 - Dementia in other diseases classified elsewhere with behavioral disturbance (4) Paranoid schizophrenia, chronic condition SNOMED Code(s): 24470488 Code(s): F20.0 - PARANOID SCHIZOPHRENIA Status: Chronic Priority: High Current Visit: Yes (5) Subdural hemorrhage following injury SNOMED Code(s): 435802681 Code(s): S06.5X9A - TRAUM SUBDR HEM W LOC OF UNSP DURATION, INIT Status: Chronic Priority: High Current Visit: Yes Qualifiers: Encounter type: subsequent encounter Loss of consciousness presence/ duration: without LOC Qualified Code(s): S06.5X0D - Traumatic subdural hemorrhage without loss of consciousness, subsequent encounter - Problem List Review Problem List Initiated/Reviewed/Updated: Yes - My Orders Last 24 Hours: My Active Orders 05/19/17 Dinner Thickened Liquids [DIET] - Assessment Assessment:: Fever - Plan Plan:: Pt admit to swing bed for adjustment of psych. medications, pain management, constipation, overflow incontinence, strengthening, and decrease in intake. Dementia and adjustment of psych medications: Administer medications as pt tolerates, May crush and give in soft foods. With periods of agitation, start Ativan 0.5 mg tid as needed to keep pt comfortable and resting. Pain Management: Assess and treat headache and neck pain. Medications ordered for mild, moderate, and severe pain. Constipation: Rectal suppository or enema every 2-3 days as needed. Overflow incontinence: Carpio catheter to bedside drainage. weakness: PT/OT continue to offer strengthening/evaluation as pt has more periods of being alert/awake. decreased oral intake: IVD'cd Mechanical soft diet as tolerated, when alert. Diabetes with hyperglycemia: Monitor blood sugars. Offer Metformin when alert and able to swallow medication. 05/06/17 Agree with above 1 Subdural hematoma: Ct head repeated on 05/05/17 shows slight increase in the size of the right subdural hematoma maira 10-13mm and also there is a small fluid collection over the left side about 7mm which is new.Pt does seem to be clinically improving and presently is off Iv fluids and tolerating oral diet. I did call , Neurosurgeon induction brazer. 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 reassured that happen some time. He did recommend to repeat Ct head in 1 month time from time of injury to make sure the hematoma is resolving( as patient has schizophrenia and is hard to monitor his neurologic status). 2) Neurogenic bladder: Pt has had chronic urinary retention for more than a month. He has been on carpio catheter for urinary drainage. Apparently Pt has not had successful clamping and drainage and her does not void well when off catheter. I have discussed patient with the urologistat [facility]. Dr capellan does agree with this being neurogenic bladder issue , which will cause intermittent retention overflow. Considering his severe schizophrenia and age, Dr. Capellan's recommendation has been to try straight catheterizing this patient as needed. But patient in the past gets agitated when he needs cauterization, but once catheter is in place he does keep the carpio in place. does recommend continuos cauterization, as there is not much option available considering his co-morbid conditions,. Also the cholinergic effect of the antipsychotics he is on can make his neurogenic bladder and urinary retention worse. Per Dr Capellan's recommendation will try keeping patient on continuous cauterization weight the risks and benefits. 05/10/17 Pt is running low grade fever just now, with his dementia and schizophrenia, hard to take any history from patient. No change in status. Clinical exam of patient is normal. refusing tylenol. Will get workup with CBC , UA and chest xray and followup with result. His CBC and Chest xray are normal. UA has not been done. This could be transient elevation of the temperature. Will monitor him closely. If he continues to spike will work it up. 05/20/[address] Thrasher on management of patient. We are in contact with family and Guardian and consensus to keep comfortable and continue current cares and management for agitation as needed and daily cares. Patient does appear to have improved agitation with increased Seroquel dosing.
[2017-05-20] MEDS: Morphine 2 MG/ML Syringe IVPUSH PRN (18:53)
[2017-05-20] MEDS: Citalopram 20 MG Tab PO SCH (19:45)
[2017-05-20] MEDS: Docusate Sodium 100 MG Cap PO PRN (19:45)
[2017-05-20] MEDS: Erythromycin Base 0.5% Ophth Oint 3.5 GM Tube EYERT SCH (21:24)
[2017-05-21] MEDS: Morphine 2 MG/ML Syringe IVPUSH PRN ×2 (02:01→07:47)
[2017-05-21] MEDS: Bisacodyl 10 MG Supp RECTAL PRN (06:29)
[2017-05-21] MEDS: Lisinopril 10 MG Tab PO SCH (08:04)
[2017-05-21] MEDS: Acetaminophen 325 MG Tab PO SCH ×2 (08:04→20:06)
[2017-05-21] MEDS: metFORMIN 500 MG Tab PO SCH ×2 (08:06→17:27)
[2017-05-21] MEDS: Calcitonin (Salmon) Nasal Spray 3.7 ML Bottle NAS SCH (08:11)
[2017-05-21] MEDS: Citalopram 20 MG Tab PO SCH (20:03)
[2017-05-21] MEDS: LORazepam 2 MG/ML MDV IVPUSH PRN (20:20)
[2017-05-21] MEDS: Erythromycin Base 0.5% Ophth Oint 3.5 GM Tube EYERT SCH (21:27)
[2017-05-22] MEDS: Acetaminophen 325 MG Tab PO SCH ×2 (13:52→20:15)
[2017-05-22] MEDS: metFORMIN 500 MG Tab PO SCH ×2 (13:53→18:43)
[2017-05-22] MEDS: Calcitonin (Salmon) Nasal Spray 3.7 ML Bottle NAS SCH (13:54)
[2017-05-22] MEDS: Lisinopril 10 MG Tab PO SCH (13:57)
[2017-05-22] MEDS: LORazepam 2 MG/ML MDV IVPUSH PRN (20:10)
[2017-05-22] MEDS: Citalopram 20 MG Tab PO SCH (20:15)
[2017-05-22] MEDS: Erythromycin Base 0.5% Ophth Oint 3.5 GM Tube EYERT SCH (21:03)
[2017-05-23] MEDS: Lisinopril 10 MG Tab PO SCH (08:06)
[2017-05-23] MEDS: Acetaminophen 325 MG Tab PO SCH ×2 (08:08→20:25)
[2017-05-23] MEDS: metFORMIN 500 MG Tab PO SCH ×2 (08:09→17:20)
[2017-05-23] MEDS: Calcitonin (Salmon) Nasal Spray 3.7 ML Bottle NAS SCH (08:09)
[2017-05-23] MEDS: Acetaminophen/HYDROcodone 325-5 MG Tab PO PRN (14:46)
[2017-05-23] MEDS: Citalopram 20 MG Tab PO SCH (20:26)
[2017-05-23] MEDS: LORazepam 0.5 MG Tab PO PRN (20:26)
[2017-05-23] MEDS: Erythromycin Base 0.5% Ophth Oint 3.5 GM Tube EYERT SCH (20:27)
[2017-05-24] MEDS: Lisinopril 10 MG Tab PO SCH ×2 (07:45→10:02)
[2017-05-24] MEDS: metFORMIN 500 MG Tab PO SCH ×3 (07:46→17:24)
[2017-05-24] MEDS: Acetaminophen 325 MG Tab PO SCH ×3 (07:47→19:49)
[2017-05-24] MEDS: LORazepam 0.5 MG Tab PO PRN (07:47)
[2017-05-24] MEDS: Calcitonin (Salmon) Nasal Spray 3.7 ML Bottle NAS SCH (07:49)
[2017-05-24] MEDS: LORazepam 2 MG/ML MDV IVPUSH PRN ×2 (08:27→19:41)
[2017-05-24] MEDS: Acetaminophen/HYDROcodone 325-5 MG Tab PO PRN ×2 (11:22→16:33)
[2017-05-24] MEDS: Morphine 2 MG/ML Syringe IVPUSH PRN (19:41)
[2017-05-24] MEDS: Citalopram 20 MG Tab PO SCH (19:49)
[2017-05-24] MEDS: Erythromycin Base 0.5% Ophth Oint 3.5 GM Tube EYERT SCH (19:49)
[2017-05-25] MEDS: Lisinopril 10 MG Tab PO SCH (08:13)
[2017-05-25] MEDS: metFORMIN 500 MG Tab PO SCH ×2 (08:14→17:00)
[2017-05-25] MEDS: Acetaminophen/HYDROcodone 325-5 MG Tab PO PRN (08:14)
--- NOTE | 2017-05-25 09:29 | PCM.PN ---
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 He is a fall risk and there are no facilities throughout [place] that will accept transfer for his level of care. We have had physical therapy work with him and on a good day he is cooperative and takes a few steps forwards and backwards but on a bad day he is uncooperative, agitated and will only lie in bed. There is extreme difficulty with communication as patient has extreme hard of hearing b/l and has difficulty with his vision. Written words have to be large and although he does respond to the questions on written boards he does not always respond or cooperate. He fluctuates day to day with his Schizophrenia and does become combative. His baseline at this time on a scale of 1-10 with 10 being the worst ranges from 5-7. He does eat but very little and refuses after some intake when nursing feeds him. He does eat himself on a good day but very little as well. He does not appear in pain or discomfort but does lie in bed most of the day. He does require help getting out of bed. Functional Status: Reports: Pain Controlled, Tolerating Diet - Review of Systems General: Reports: Weakness, Other (difficult to obtain an extensive ROS) Cardiovascular: Reports: No Symptoms Gastrointestinal: Reports: No Symptoms Neurological: Reports: Pre-Existing Deficit Psychiatric: Reports: Mood Lability, Agitation - Patient Data Vitals - Most Recent: Last Vital Signs Temp 37.2 C 05/24/17 09:30 Pulse 80 05/24/17 09:30 Resp 20 05/24/17 09:30 BP 158/81 H 05/24/17 09:30 Pulse Ox 98 05/24/17 09:30 Weight - Most Recent: 60.237 kg I&O - Last 24 Hours: Intake & Output 05/24/17 05/25/17 05/25/17 22:59 06:59 14:59 Intake Total 280 60 Output Total 100 0 Balance 180 60 Lab Results Last 24 Hours: Laboratory Results - last 24 hr 05/24/17 Range/Units 15:47 POC Glucose 171 H (74-110) mg/dL Med Orders - Current: Current Medications Acetaminophen (Tylenol) 650 mg PO BID [facility] Last Admin: 09/17/17 19:49 Dose: 650 mg Hydrocodone Bitart/Acetaminophen (Aiken 325-5 Mg) 1 tab PO Q4H PRN PRN Reason: Pain (moderate 4-6) Last Admin: 05/25/17 08:14 Dose: 1 tab Bisacodyl (Dulcolax) 10 mg RECTAL DAILY PRN PRN Reason: Constipation Last Admin: 05/21/17 06:29 Dose: 10 mg Calcitonin Davis (Miacalcin Nasal [place]) 3.7 ml MIKY DAILY [facility] Last Admin: 05/24/17 07:49 Dose: 1 spray Citalopram Hydrobromide (Celexa) 20 mg PO BEDTIME [facility] Last Admin: 05/24/17 19:49 Dose: 20 mg Docusate Sodium (Colace) 100 mg PO BID PRN PRN Reason: constipation Last Admin: 05/20/17 19:45 Dose: 100 mg Erythromycin (Erythromycin 0.5% Ophth Oint) 0 gm EYERT BEDTIME [facility] Last Admin: 05/24/17 19:49 Dose: Not Given Lisinopril (Prinivil) 10 mg PO DAILY [facility] Last Admin: 05/25/17 08:13 Dose: 10 mg Lorazepam (Ativan) 0.5 mg PO Q8H PRN PRN Reason: Anxiety Last Admin: 05/23/17 20:26 Dose: 0.5 mg Lorazepam (Ativan) 1 mg IVPUSH Q4H PRN PRN Reason: Anxiety Last Admin: 05/24/17 19:41 Dose: 1 mg Metformin HCl (Glucophage) 250 mg PO BIDMEALS [facility] Last Admin: 05/25/17 08:14 Dose: 250 mg Morphine Sulfate (Morphine) 2 mg IVPUSH Q2H PRN PRN Reason: Pain (severe 7-10) Last Admin: 05/24/17 19:41 Dose: 2 mg Metronidazole 0.75% (Cream) 1 applic TOP DAILY [facility] Last Admin: 05/25/17 08:12 Dose: 1 applic Quetiapine Fumarate (Seroquel) 450 mg PO BEDTIME [facility] Last Admin: 05/24/17 19:49 Dose: 450 mg Quetiapine Fumarate (Seroquel) 200 mg PO DAILY@0700,1100 [facility] Last Admin: 05/25/17 08:12 Dose: 200 mg Quetiapine Fumarate (Seroquel) 50 mg PO DAILY@0700,1100 [facility] Last Admin: 05/25/17 08:13 Dose: 50 mg Senna/Docusate Sodium (Senna Plus) 1 tab PO BID [facility] Last Admin: 05/25/17 08:13 Dose: 1 tab Discontinued Medications Acetaminophen (Tylenol) Confirm Administered Dose 325 mg .ROUTE .STK-MED ONE Stop: 05/19/17 08:14 Last Admin: 05/19/17 08:28 Dose: 325 mg Hydrocodone Bitart/Acetaminophen (Aiken 325-5 Mg) 0.5 tab PO Q4H PRN PRN Reason: Pain (moderate 4-6) Last Admin: 05/04/17 13:51 Dose: 0.5 tab Hydrocodone Bitart/Acetaminophen (Aiken 325-5 Mg) Confirm Administered Dose 1 tab .ROUTE .STK-MED ONE Stop: 05/18/17 19:40 Last Admin: 05/18/17 21:39 Dose: Not Given Calamine/Phenol (Calmoseptine) 113 gm TOP .STK-MED ONE Stop: 05/17/17 08:01 Calcitonin Davis (Miacalcin Nasal [place]) 0 ml MIKY DAILY [facility] Last Admin: 05/04/17 08:14 Dose: 1 spray Ciprofloxacin (Ciprofloxacin Hcl) 500 mg PO BID [facility] Last Admin: 05/19/17 08:31 Dose: 500 mg Ciprofloxacin (Ciprofloxacin Hcl) Confirm Administered Dose 500 mg .ROUTE .STK- MED ONE Stop: 05/10/17 23:06 Last Admin: 05/10/17 23:12 Dose: 500 mg Haloperidol Lactate (Haldol) Confirm Administered Dose 5 mg .ROUTE .STK-MED ONE Stop: 05/01/17 21:31 Last Admin: 05/02/17 03:32 Dose: Not Given Haloperidol Lactate (Haldol) 5 mg IVPUSH ONETIME ONE Stop: 05/01/17 21:01 Last Admin: 05/02/17 02:30 Dose: 2.5 mg Haloperidol Lactate (Haldol) 5 mg IVPUSH ONETIME ONE Stop: 05/06/17 21:26 Last Admin: 05/07/17 06:51 Dose: Not Given Sodium Chloride (Normal Saline) 1,000 mls @ 125 mls/hr IV ASDIRECTED [facility] Last Admin: 05/01/17 10:50 Dose: 125 mls/hr Dextrose/Sodium Chloride (Dextrose 5%-1/2 Ns) 1,000 mls @ 125 mls/hr IV ASDIRECTED [facility] Stop: 05/03/17 00:09 Last Admin: 05/01/17 21:30 Dose: 125 mls/hr Lorazepam (Ativan) Confirm Administered Dose 2 mg .ROUTE .STK-MED ONE Stop: 05/01/17 21:31 Last Admin: 05/02/17 03:32 Dose: Not Given Lorazepam (Ativan) 2 mg IVPUSH ONETIME ONE Stop: 05/01/17 21:01 Last Admin: 05/02/17 02:35 Dose: 1 mg Lorazepam (Ativan) Confirm Administered Dose 2 mg .ROUTE .STK-MED ONE Stop: 05/05/17 15:27 Last Admin: 05/05/17 17:48 Dose: Not Given Lorazepam (Ativan) 2 mg IVPUSH ONETIME ONE Stop: 05/05/17 15:50 Last Admin: 05/05/17 15:40 Dose: 2 mg Lorazepam (Ativan) Confirm Administered Dose 2 mg .ROUTE .STK-MED ONE Stop: 05/10/17 19:09 Last Admin: 05/10/17 19:10 Dose: 2 mg Magnesium Hydroxide (Milk Of Magnesia) Confirm Administered Dose 30 ml .ROUTE .STK-MED ONE Stop: 05/16/17 10:03 Last Admin: 05/16/17 08:30 Dose: 30 ml Metformin HCl (Glucophage) 250 mg PO BID [facility] Last Admin: 05/09/17 21:03 Dose: Not Given Non-Formulary Medication (Quetiapine [Seroquel Xr]) 1 tab PO ACLUNCH [facility] Quetiapine Fumarate (Seroquel) 200 mg PO BID@0700,1100 [facility] Last Admin: 05/03/17 07:32 Dose: Not Given Quetiapine Fumarate (Seroquel) 450 mg PO DAILY@2000 [facility] Last Admin: 05/01/17 04:09 Dose: Not Given Quetiapine Fumarate (Seroquel) 200 mg PO DAILY@0700,1100 [facility] Last Admin: 05/10/17 21:46 Dose: Not Given Quetiapine Fumarate (Seroquel) 400 mg PO BEDTIME [facility] Last Admin: 05/10/17 19:19 Dose: 400 mg Quetiapine Fumarate (Seroquel) 50 mg PO BEDTIME [facility] Last Admin: 05/10/17 20:41 Dose: 50 mg Quetiapine Fumarate (Seroquel) Confirm Administered Dose 400 mg .ROUTE .STK-MED ONE Stop: 05/03/17 19:38 Last Admin: 05/04/17 00:57 Dose: Not Given Quetiapine Fumarate (Seroquel) Confirm Administered Dose 200 mg .ROUTE .STK-MED ONE Stop: 05/10/17 08:02 Last Admin: 05/10/17 20:41 Dose: Not Given Quetiapine Fumarate (Seroquel) 250 mg PO 0700,1100 [facility] Last Admin: 05/12/17 06:43 Dose: 250 mg Quetiapine Fumarate (Seroquel) Confirm Administered Dose 50 mg .ROUTE .STK-MED ONE Stop: 05/11/17 06:54 Last Admin: 05/11/17 11:55 Dose: Not Given Quetiapine Fumarate (Seroquel) Confirm Administered Dose 50 mg .ROUTE .STK-MED ONE Stop: 05/14/17 13:32 Last Admin: 05/14/17 13:35 Dose: Not Given Quetiapine Fumarate (Seroquel) Confirm Administered Dose 50 mg .ROUTE .STK-MED ONE Stop: 05/20/17 19:39 Last Admin: 05/20/17 21:26 Dose: 50 mg Quetiapine Fumarate (Seroquel) Confirm Administered Dose 50 mg .ROUTE .STK-MED ONE Stop: 05/22/17 19:54 Last Admin: 05/22/17 21:02 Dose: Not Given Quetiapine Fumarate (Seroquel) Confirm Administered Dose 50 mg .ROUTE .STK-MED ONE Stop: 05/24/17 19:28 Last Admin: 05/24/17 19:41 Dose: Not Given Tuberculin PPD (Aplisol) 5 unit IDERM ONETIME ONE Stop: 04/30/17 16:28 - Exam General: No Acute Distress, Other (talking to voices) HEENT: Pupils Equal, Pupils Reactive Neck: Supple Lungs: Clear to Auscultation, Normal Respiratory Effort Cardiovascular: Regular Rate, Regular Rhythm GI/Abdominal Exam: Normal Bowel Sounds (Male) Exam: No Hernia Back Exam: Normal Inspection Extremities: Normal Inspection, Normal Range of Motion, Non-Tender Peripheral Pulses: 2+: Dorsalis Pedis (L), Dorsalis Pedis (R) Skin: Other (seborrheic dermatitis) Neurological: No New Focal Deficit Psy/Mental Status: Labile Mood, Agitated - Problem List & Annotations (1) Subdural hemorrhage following injury SNOMED Code(s): 620072965 Code(s): S06.5X9A - TRAUM SUBDR HEM W LOC OF UNSP DURATION, INIT Status: Chronic Priority: High Current Visit: Yes Qualifiers: Encounter type: subsequent encounter Loss of consciousness presence/ duration: without LOC Qualified Code(s): S06.5X0D - Traumatic subdural hemorrhage without loss of consciousness, subsequent encounter (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 Code(s): F03.91 - UNSPECIFIED DEMENTIA WITH BEHAVIORAL DISTURBANCE Status: Chronic Priority: High Current Visit: Yes Qualifiers: Dementia behavioral disturbance: with behavioral disturbance Qualified Code (s): F02.81 - Dementia in other diseases classified elsewhere with behavioral disturbance (3) Paranoid schizophrenia, chronic condition SNOMED Code(s): 93964430 Code(s): F20.0 - PARANOID SCHIZOPHRENIA Status: Chronic Priority: High Current Visit: Yes (4) Diabetes mellitus SNOMED Code(s): 37544890 Code(s): E11.9 - TYPE 2 DIABETES MELLITUS WITHOUT COMPLICATIONS Status: Chronic Priority: Medium Current Visit: Yes Qualifiers: Diabetes mellitus type: type 2 Diabetes mellitus complication status: with hyperglycemia Diabetes mellitus train controller insulin use: without mcc use Qualified Code(s): E11.65 - Type 2 diabetes mellitus with hyperglycemia (5) Neurogenic bladder SNOMED Code(s): 192209085 Code(s): N31.9 - NEUROMUSCULAR DYSFUNCTION OF BLADDER, UNSPECIFIED Status: Acute Current Visit: Yes - Problem List Review Problem List Initiated/Reviewed/Updated: Yes - My Orders Last 24 Hours: My Active Orders 05/25/17 08:15 CBC WITH AUTO DIFF [HEME] Routine 05/25/17 08:21 BASIC METABOLIC PANEL,BMP [CHEM] Routine - Assessment Assessment:: Fever - Plan Plan:: Pt admit to swing bed for adjustment of psych. medications, pain management, constipation, overflow incontinence, strengthening, and decrease in intake. Dementia and adjustment of psych medications: Administer medications as pt tolerates, May crush and give in soft foods. With periods of agitation, start Ativan 0.5 mg tid as needed to keep pt comfortable and resting. Pain Management: Assess and treat headache and neck pain. Medications ordered for mild, moderate, and severe pain. Constipation: Rectal suppository or enema every 2-3 days as needed. Overflow incontinence: Carpio catheter to bedside drainage. weakness: PT/OT continue to offer strengthening/evaluation as pt has more periods of being alert/awake. decreased oral intake: IVD'cd Mechanical soft diet as tolerated, when alert. Diabetes with hyperglycemia: Monitor blood sugars. Offer Metformin when alert and able to swallow medication. 05/06/17 Agree with above 1 Subdural hematoma: Ct head repeated on 05/05/17 shows slight increase in the size of the right subdural hematoma maira 10-13mm and also there is a small fluid collection over the left side about 7mm which is new.Pt does seem to be clinically improving and presently is off Iv fluids and tolerating oral diet. I did call , Neurosurgeon production cell leader. 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 reassured that happen some time. He did recommend to repeat Ct head in 1 month time from time of injury to make sure the hematoma is resolving( as patient has schizophrenia and is hard to monitor his neurologic status). 2) Neurogenic bladder: Pt has had chronic urinary retention for more than a month. He has been on carpio catheter for urinary drainage. Apparently Pt has not had successful clamping and drainage and her does not void well when off catheter. I have discussed patient with the urologist[facility]. Dr capellan does agree with this being neurogenic bladder issue , which will cause intermittent retention overflow. Considering his severe schizophrenia and age, Dr. Capellan's recommendation has been to try straight catheterizing this patient as needed. But patient in the past gets agitated when he needs cauterization, but once catheter is in place he does keep the carpio in place. does recommend continuos cauterization, as there is not much option available considering his co-morbid conditions,. Also the cholinergic effect of the antipsychotics he is on can make his neurogenic bladder and urinary retention worse. Per Dr Capellan's recommendation will try keeping patient on continuous cauterization weight the risks and benefits. 05/10/17 Pt is running low grade fever just now, with his dementia and schizophrenia, hard to take any history from patient. No change in status. Clinical exam of patient is normal. refusing tylenol. Will get workup with CBC , UA and chest xray and followup with result. His CBC and Chest xray are normal. UA has not been done. This could be transient elevation of the temperature. Will monitor him closely. If he continues to spike will work it up. 05/20/[address] Thrasher on management of patient. We are in contact with family and Guardian and consensus to keep comfortable and continue current cares and management for agitation as needed and daily cares. Patient does appear to have improved agitation with increased Seroquel dosing. 05/25/17 Patient plan to continue current medications and continue meals as tolerated. Nursing staff have been at bedside feeding patient for meals. Patient has gotten up with PT/OT but only walked a few steps with assistance. He remains in bed most of the day. We will continue to monitor for sore formation and try frequent up to chair and feedings. Patient does respond to feeding and does eat little amounts and does state he is full. Continued f/u with Dr. Thrasher. F/u CT as scheduled in a few weeks. No further changes.
[2017-05-25] MEDS: Morphine 2 MG/ML Syringe IVPUSH PRN ×3 (13:20→20:08)
[2017-05-25] MEDS: Acetaminophen 325 MG Tab PO SCH ×2 (14:24→20:38)
[2017-05-25] MEDS: Calcitonin (Salmon) Nasal Spray 3.7 ML Bottle NAS SCH (14:30)
[2017-05-25] MEDS ORDERED: Lactated Ringers 1,000 ML IV SCH (17:00)
[2017-05-25] MEDS ORDERED: fentaNYL 12 MCG/HR Transdermal Patch ONE (17:02)
[2017-05-25] MEDS: fentaNYL 12 MCG/HR Transdermal Patch TRDERM SCH (18:33)
[2017-05-25] MEDS: LORazepam 2 MG/ML MDV IVPUSH PRN (20:10)
[2017-05-25] MEDS: Citalopram 20 MG Tab PO SCH (20:36)
[2017-05-25] MEDS: Erythromycin Base 0.5% Ophth Oint 3.5 GM Tube EYERT SCH (20:38)
[2017-05-26] MEDS: Acetaminophen 325 MG Tab PO SCH ×2 (08:15→19:49)
[2017-05-26] MEDS: Lisinopril 10 MG Tab PO SCH (08:15)
[2017-05-26] MEDS: metFORMIN 500 MG Tab PO SCH ×2 (08:16→18:22)
[2017-05-26] MEDS: Calcitonin (Salmon) Nasal Spray 3.7 ML Bottle NAS SCH (08:26)
[2017-05-26] MEDS ORDERED: QUEtiapine Fumarate 200 MG TABLET PO ONE (19:36)
[2017-05-26] MEDS: LORazepam 2 MG/ML MDV IVPUSH PRN (19:45)
[2017-05-26] MEDS: Morphine 2 MG/ML Syringe IVPUSH PRN (19:47)
[2017-05-26] MEDS: Citalopram 20 MG Tab PO SCH (19:49)
[2017-05-26] MEDS: Erythromycin Base 0.5% Ophth Oint 3.5 GM Tube EYERT SCH (20:19)
[2017-05-27] MEDS: Lisinopril 10 MG Tab PO SCH (08:04)
[2017-05-27] MEDS: metFORMIN 500 MG Tab PO SCH ×3 (08:04→17:01)
[2017-05-27] MEDS: Acetaminophen/HYDROcodone 325-5 MG Tab PO PRN ×2 (08:05→13:01)
[2017-05-27] MEDS: Calcitonin (Salmon) Nasal Spray 3.7 ML Bottle NAS SCH (08:06)
[2017-05-27] MEDS: Acetaminophen 325 MG Tab PO SCH ×2 (08:06→19:26)
[2017-05-27] MEDS: QUEtiapine Fumarate 200 MG TABLET PO SCH (11:26)
[2017-05-27] MEDS: LORazepam 2 MG/ML MDV IVPUSH PRN (14:39)
[2017-05-27] MEDS: Morphine 2 MG/ML Syringe IVPUSH PRN ×2 (17:01→20:18)
[2017-05-27] MEDS ORDERED: QUEtiapine Fumarate 200 MG TABLET PO ONE (19:17)
[2017-05-27] MEDS: Citalopram 20 MG Tab PO SCH (19:25)
[2017-05-27] MEDS: LORazepam 0.5 MG Tab PO PRN (19:27)
[2017-05-27] MEDS: Erythromycin Base 0.5% Ophth Oint 3.5 GM Tube EYERT SCH (21:19)
[2017-05-27] MEDS ORDERED: Magnesium Hydroxide 400 MG/5 ML Susp 30 ML Cup ONE (22:45)
[2017-05-28] MEDS: QUEtiapine Fumarate 200 MG TABLET PO SCH ×2 (06:27→09:59)
[2017-05-28] MEDS: Acetaminophen/HYDROcodone 325-5 MG Tab PO PRN ×2 (09:52→14:27)
[2017-05-28] MEDS: metFORMIN 500 MG Tab PO SCH ×2 (10:00→18:48)
[2017-05-28] MEDS: Acetaminophen 325 MG Tab PO SCH ×2 (10:00→20:06)
[2017-05-28] MEDS: Lisinopril 10 MG Tab PO SCH (10:03)
[2017-05-28] MEDS: Calcitonin (Salmon) Nasal Spray 3.7 ML Bottle NAS SCH (10:03)
[2017-05-28] MEDS: LORazepam 2 MG/ML MDV IVPUSH PRN (16:03)
[2017-05-28] MEDS: Citalopram 20 MG Tab PO SCH (20:06)
[2017-05-28] MEDS: Erythromycin Base 0.5% Ophth Oint 3.5 GM Tube EYERT SCH (20:08)
[2017-05-28] MEDS: fentaNYL 12 MCG/HR Transdermal Patch TRDERM SCH (20:15)
[2017-05-29] MEDS: LORazepam 2 MG/ML MDV IVPUSH PRN (02:27)
[2017-05-29] MEDS: QUEtiapine Fumarate 200 MG TABLET PO SCH ×2 (06:17→12:39)
[2017-05-29] MEDS: LORazepam 0.5 MG Tab PO PRN ×2 (06:17→12:40)
[2017-05-29] MEDS: metFORMIN 500 MG Tab PO SCH ×2 (10:34→18:00)
[2017-05-29] MEDS: Calcitonin (Salmon) Nasal Spray 3.7 ML Bottle NAS SCH (10:34)
[2017-05-29] MEDS: Lisinopril 10 MG Tab PO SCH (10:35)
[2017-05-29] MEDS: Acetaminophen 325 MG Tab PO SCH ×2 (10:36→21:29)
[2017-05-29] MEDS: Acetaminophen/HYDROcodone 325-5 MG Tab PO PRN (12:41)
[2017-05-29] MEDS: Citalopram 20 MG Tab PO SCH (21:29)
[2017-05-30] MEDS: Erythromycin Base 0.5% Ophth Oint 3.5 GM Tube EYERT SCH ×2 (06:55→22:05)
[2017-05-30] MEDS: QUEtiapine Fumarate 200 MG TABLET PO SCH ×2 (07:41→11:35)
[2017-05-30] MEDS: Acetaminophen 325 MG Tab PO SCH ×2 (07:42→21:36)
[2017-05-30] MEDS: Lisinopril 10 MG Tab PO SCH (07:42)
[2017-05-30] MEDS: metFORMIN 500 MG Tab PO SCH ×3 (07:44→18:10)
[2017-05-30] MEDS: Calcitonin (Salmon) Nasal Spray 3.7 ML Bottle NAS SCH (07:55)
[2017-05-30] MEDS: Sodium Chloride 0.9% 10 ML Syringe FLUSH SCH ×3 (10:22→21:37)
[2017-05-30] MEDS: LORazepam 0.5 MG Tab PO PRN (10:32)
[2017-05-30] MEDS: Acetaminophen/HYDROcodone 325-5 MG Tab PO PRN (14:35)
[2017-05-30] MEDS: Bisacodyl 10 MG Supp RECTAL PRN (16:23)
[2017-05-30] MEDS: Citalopram 20 MG Tab PO SCH (21:36)
[2017-05-31] MEDS: LORazepam 0.5 MG Tab PO PRN (04:59)
[2017-05-31] MEDS: Acetaminophen/HYDROcodone 325-5 MG Tab PO PRN ×2 (05:01→19:29)
[2017-05-31] MEDS: Calcitonin (Salmon) Nasal Spray 3.7 ML Bottle NAS SCH (08:20)
[2017-05-31] MEDS: Acetaminophen 325 MG Tab PO SCH ×2 (08:21→19:30)
[2017-05-31] MEDS: Lisinopril 10 MG Tab PO SCH (08:21)
[2017-05-31] MEDS: QUEtiapine Fumarate 200 MG TABLET PO SCH ×2 (08:21→12:42)
[2017-05-31] MEDS: metFORMIN 500 MG Tab PO SCH ×2 (08:21→17:52)
[2017-05-31] MEDS: Sodium Chloride 0.9% 10 ML Syringe FLUSH SCH ×2 (08:25→21:36)
[2017-05-31] MEDS ORDERED: Sodium Phosphate,Monobasic/Sodium Phosphate,Dibasic Enema 133 ML Bottle RECTAL PRN (14:38)
[2017-05-31] MEDS: Sulfamethoxazole/Trimethoprim 800-160 MG Tab PO SCH (19:31)
[2017-05-31] MEDS: Erythromycin Base 0.5% Ophth Oint 3.5 GM Tube EYERT SCH (19:32)
[2017-05-31] MEDS: Citalopram 20 MG Tab PO SCH (19:32)
[2017-05-31] MEDS: fentaNYL 12 MCG/HR Transdermal Patch TRDERM SCH (21:32)
[2017-06-01] MEDS: Acetaminophen/HYDROcodone 325-5 MG Tab PO PRN ×2 (03:07→11:47)
[2017-06-01] MEDS: LORazepam 2 MG/ML MDV IVPUSH PRN ×2 (05:43→19:30)
[2017-06-01] MEDS: QUEtiapine Fumarate 200 MG TABLET PO SCH ×2 (07:02→11:47)
[2017-06-01] MEDS: Acetaminophen 325 MG Tab PO SCH ×2 (07:57→19:38)
[2017-06-01] MEDS: metFORMIN 500 MG Tab PO SCH ×2 (07:59→17:08)
[2017-06-01] MEDS: Calcitonin (Salmon) Nasal Spray 3.7 ML Bottle NAS SCH (08:00)
[2017-06-01] MEDS: Sulfamethoxazole/Trimethoprim 800-160 MG Tab PO SCH ×2 (08:00→19:39)
[2017-06-01] MEDS: Sodium Chloride 0.9% 10 ML Syringe FLUSH SCH ×2 (08:00→19:32)
[2017-06-01] MEDS: Lisinopril 10 MG Tab PO SCH (08:01)
[2017-06-01] MEDS ORDERED: QUEtiapine Fumarate 200 MG TABLET PO ONE (19:28)
[2017-06-01] MEDS: Morphine 2 MG/ML Syringe IVPUSH PRN (19:32)
[2017-06-01] MEDS: Citalopram 20 MG Tab PO SCH (19:39)
[2017-06-01] MEDS: Erythromycin Base 0.5% Ophth Oint 3.5 GM Tube EYERT SCH (19:39)
[2017-06-02] MEDS: QUEtiapine Fumarate 200 MG TABLET PO SCH ×2 (06:15→11:06)
[2017-06-02] MEDS: Sulfamethoxazole/Trimethoprim 800-160 MG Tab PO SCH ×2 (08:49→19:59)
[2017-06-02] MEDS: metFORMIN 500 MG Tab PO SCH (08:49)
[2017-06-02] MEDS: Lisinopril 10 MG Tab PO SCH (08:50)
[2017-06-02] MEDS: Acetaminophen 325 MG Tab PO SCH ×2 (08:50→19:59)
[2017-06-02] MEDS: Calcitonin (Salmon) Nasal Spray 3.7 ML Bottle NAS SCH (08:56)
[2017-06-02] MEDS: Sodium Chloride 0.9% 10 ML Syringe FLUSH SCH ×2 (08:59→20:02)
[2017-06-02] MEDS: LORazepam 2 MG/ML MDV IVPUSH PRN ×2 (11:06→19:55)
[2017-06-02] MEDS ORDERED: QUEtiapine Fumarate 200 MG TABLET PO ONE (19:46)
[2017-06-02] MEDS: Morphine 2 MG/ML Syringe IVPUSH PRN (19:50)
[2017-06-02] MEDS: Insulin Detemir 100 Units/ML 3 ML Pen SUBCUT SCH (19:51)
[2017-06-02] MEDS: Citalopram 20 MG Tab PO SCH (19:58)
[2017-06-02] MEDS: Erythromycin Base 0.5% Ophth Oint 3.5 GM Tube EYERT SCH (20:02)
[2017-06-03] MEDS: LORazepam 2 MG/ML MDV IVPUSH PRN ×2 (02:30→12:03)
[2017-06-03] MEDS: Sulfamethoxazole/Trimethoprim 800-160 MG Tab PO SCH ×2 (07:23→19:47)
[2017-06-03] MEDS: QUEtiapine Fumarate 200 MG TABLET PO SCH ×2 (07:23→10:45)
[2017-06-03] MEDS: Acetaminophen 325 MG Tab PO SCH ×2 (07:24→19:46)
[2017-06-03] MEDS: Lisinopril 10 MG Tab PO SCH (07:29)
[2017-06-03] MEDS: Calcitonin (Salmon) Nasal Spray 3.7 ML Bottle NAS SCH (07:46)
[2017-06-03] MEDS: Sodium Chloride 0.9% 10 ML Syringe FLUSH SCH ×2 (07:50→20:39)
[2017-06-03] MEDS ORDERED: Lactated Ringers 1,000 ML IV SCH (09:45)
[2017-06-03] MEDS: Morphine 2 MG/ML Syringe IVPUSH PRN ×2 (12:02→19:45)
--- NOTE | 2017-06-03 13:17 | PCM.PN ---
- General Info Date of Service: 06/01/17 Subjective Update: This is an 86yo M paranoid schizophrenic with severe dementia, deafness, and visual difficulties in swing bed for supportive care, feeding, ADLs, and strengthening. He is stable but has a very limited appetite and does not get out of bed much. - Review of Systems General: Reports: Weakness, Other (difficulty obtaining ROS, patient unable to respond to all questions) HEENT: Reports: No Symptoms Cardiovascular: Reports: No Symptoms Gastrointestinal: Reports: No Symptoms Genitourinary: Reports: Incontinence Skin: Reports: Other (seborrheic dermatitis) Neurological: Reports: Confusion, Difficulty Walking, Weakness Psychiatric: Reports: Mood Lability, Hallucinations, Other - Patient Data Vitals - Most Recent: Last Vital Signs Temp 36.7 C 06/03/17 07:52 Pulse 98 06/03/17 07:52 Resp 16 06/03/17 07:52 BP 122/68 06/03/17 07:52 Pulse Ox 94 L 06/03/17 07:52 Weight - Most Recent: 60.237 kg I&O - Last 24 Hours: Intake & Output 06/02/17 06/03/17 06/03/17 22:59 06:59 14:59 Intake Total 250 300 Output Total 375 325 Balance -125 -25 Lab Results Last 24 Hours: Laboratory Results - last 24 hr 06/03/17 06/03/17 Range/Units 05:12 08:30 Sodium 154 H (136-145) mmol/L Potassium 4.2 (3.5-5.1) mmol/L Chloride 117 H (98-107) mmol/L Carbon Dioxide 28.7 (21.0-32.0) mmol/L Anion Gap 12.5 (5.0-15.0) mmol/L BUN 66 H* (8-26) mg/dL Creatinine 1.54 H (0.70-1.30) mg/dL Est Cr Clr Drug Dosing 28.25 mL/min Estimated GFR (MDRD) 43 L (>60) MLS/MIN BUN/Creatinine Ratio 42.9 H (6-25) Glucose 228 H (74-100) mg/dL POC Glucose 122 H (74-110) mg/dL Calcium 9.6 (8.5-10.1) mg/dL Med Orders - Current: Current Medications Acetaminophen (Tylenol) 650 mg PO BID BRIGITTE Last Admin: 06/03/17 07:24 Dose: 650 mg Hydrocodone Bitart/Acetaminophen ([place] 325-5 Mg) 1 tab PO Q4H PRN PRN Reason: Pain (moderate 4-6) Last Admin: 06/01/17 11:47 Dose: 1 tab Bisacodyl (Dulcolax) 10 mg RECTAL DAILY PRN PRN Reason: Constipation Last Admin: 05/30/17 16:23 Dose: 10 mg Calcitonin [place] (Miacalcin Nasal [place]) 3.7 ml MIKY DAILY [facility] Last Admin: 06/03/17 07:46 Dose: 1 spray Citalopram Hydrobromide (Celexa) 20 mg PO BEDTIME [facility] Last Admin: 06/02/17 19:58 Dose: 20 mg Docusate Sodium (Colace) 100 mg PO BID PRN PRN Reason: constipation Last Admin: 05/20/17 19:45 Dose: 100 mg Erythromycin (Erythromycin 0.5% Ophth Oint) 0 gm EYERT BEDTIME [facility] Last Admin: 06/02/17 20:02 Dose: 1 drop Fentanyl (Duragesic) 12 mcg TRDERM Q72H [facility] Last Admin: 05/31/17 21:32 Dose: 12 mcg Dextrose/Sodium Chloride (Dextrose 5%-1/2 Ns) 1,000 mls @ 150 mls/hr IV ASDIRECTED [facility] Insulin Detemir (Levemir) 5 unit SUBCUT BEDTIME [facility] Last Admin: 06/02/17 19:51 Dose: 5 units Lisinopril (Prinivil) 10 mg PO DAILY [facility] Last Admin: 06/03/17 07:29 Dose: 10 mg Lorazepam (Ativan) 0.5 mg PO Q8H PRN PRN Reason: Anxiety Last Admin: 05/31/17 04:59 Dose: 0.5 mg Lorazepam (Ativan) 1 mg IVPUSH Q4H PRN PRN Reason: Anxiety Last Admin: 06/03/17 12:03 Dose: 1 mg Miscellaneous Information (Remove Patch) 1 ea TRDERM ASDIRECTED [facility] Morphine Sulfate (Morphine) 2 mg IVPUSH Q2H PRN PRN Reason: Pain (severe 7-10) Last Admin: 06/03/17 12:02 Dose: 2 mg Metronidazole 0.75% (Cream) 1 applic TOP DAILY [facility] Last Admin: 06/03/17 07:47 Dose: 1 applic Quetiapine Fumarate (Quetiapine Fumarate) 200 mg PO DAILY@0700,1100 [facility] Last Admin: 06/03/17 10:45 Dose: 200 mg Quetiapine Fumarate (Seroquel) 50 mg PO DAILY@0700,1100 [facility] Last Admin: 06/03/17 10:46 Dose: 50 mg Quetiapine Fumarate (Seroquel) 400 mg PO BEDTIME [facility] Last Admin: 06/02/17 19:59 Dose: 400 mg Quetiapine Fumarate (Seroquel) 50 mg PO BEDTIME [facility] Last Admin: 06/02/17 19:59 Dose: 50 mg Senna/Docusate Sodium (Senna Plus) 1 tab PO BID [facility] Last Admin: 06/03/17 07:23 Dose: 1 tab Sodium Biphosphate/Sodium Phosphate (Fleet Enema) 133 ml RECTAL ASDIRECTED PRN PRN Reason: Constipation Sodium Chloride (Saline Flush) 10 ml FLUSH BID [facility] Last Admin: 06/03/17 07:50 Dose: 10 ml Trimethoprim/Sulfamethoxazole (Septra Ds) 1 tab PO BID [facility] Stop: 06/03/17 23:59 Last Admin: 06/03/17 07:23 Dose: 1 tab Discontinued Medications Acetaminophen (Tylenol) Confirm Administered Dose 325 mg .ROUTE .STK-MED ONE Stop: 05/19/17 08:14 Last Admin: 05/19/17 08:28 Dose: 325 mg Hydrocodone Bitart/Acetaminophen ([place] 325-5 Mg) 0.5 tab PO Q4H PRN PRN Reason: Pain (moderate 4-6) Last Admin: 05/04/17 13:51 Dose: 0.5 tab Hydrocodone Bitart/Acetaminophen ([place] 325-5 Mg) Confirm Administered Dose 1 tab .ROUTE .STK-MED ONE Stop: 05/18/17 19:40 Last Admin: 05/18/17 21:39 Dose: Not Given Calamine/Phenol (Calmoseptine) 113 gm TOP .STK-MED ONE Stop: 05/17/17 08:01 Calcitonin [place] (Miacalcin Nasal [place]) 0 ml MIKY DAILY [facility] Last Admin: 05/04/17 08:14 Dose: 1 spray Ciprofloxacin (Ciprofloxacin Hcl) 500 mg PO BID [facility] Last Admin: 05/19/17 08:31 Dose: 500 mg Ciprofloxacin (Ciprofloxacin Hcl) Confirm Administered Dose 500 mg .ROUTE .STK- MED ONE Stop: 05/10/17 23:06 Last Admin: 05/10/17 23:12 Dose: 500 mg Fentanyl (Duragesic) Confirm Administered Dose 12 mcg .ROUTE .STK-MED ONE Stop: 05/25/17 17:03 Last Admin: 05/25/17 18:33 Dose: Not Given Haloperidol Lactate (Haldol) Confirm Administered Dose 5 mg .ROUTE .STK-MED ONE Stop: 05/01/17 21:31 Last Admin: 05/02/17 03:32 Dose: Not Given Haloperidol Lactate (Haldol) 5 mg IVPUSH ONETIME ONE Stop: 05/01/17 21:01 Last Admin: 05/02/17 02:30 Dose: 2.5 mg Haloperidol Lactate (Haldol) 5 mg IVPUSH ONETIME ONE Stop: 05/06/17 21:26 Last Admin: 05/07/17 06:51 Dose: Not Given Sodium Chloride (Normal Saline) 1,000 mls @ 125 mls/hr IV ASDIRECTED BRIGITTE Last Admin: 05/01/17 10:50 Dose: 125 mls/hr Dextrose/Sodium Chloride (Dextrose 5%-1/2 Ns) 1,000 mls @ 125 mls/hr IV ASDIRECTED BR[facility]TE Stop: 05/03/17 00:09 Last Admin: 05/01/17 21:30 Dose: 125 mls/hr Lactated Ringer's (Ringers, Lactated) 1,000 mls @ 250 mls/hr IV ASDIRECTED BRIGITTE Lactated Ringer's (Ringers, Lactated) 1,000 mls @ 200 mls/hr IV ASDIRECTED BR[facility]ITTE Lorazepam (Ativan) Confirm Administered Dose 2 mg .ROUTE .STK-MED ONE Stop: 05/01/17 21:31 Last Admin: 05/02/17 03:32 Dose: Not Given Lorazepam (Ativan) 2 mg IVPUSH ONETIME ONE Stop: 05/01/17 21:01 Last Admin: 05/02/17 02:35 Dose: 1 mg Lorazepam (Ativan) Confirm Administered Dose 2 mg .ROUTE .STK-MED ONE Stop: 05/05/17 15:27 Last Admin: 05/05/17 17:48 Dose: Not Given Lorazepam (Ativan) 2 mg IVPUSH ONETIME ONE Stop: 05/05/17 15:50 Last Admin: 05/05/17 15:40 Dose: 2 mg Lorazepam (Ativan) Confirm Administered Dose 2 mg .ROUTE .STK-MED ONE Stop: 05/10/17 19:09 Last Admin: 05/10/17 19:10 Dose: 2 mg Magnesium Hydroxide (Milk Of Magnesia) Confirm Administered Dose 30 ml .ROUTE .STK-MED ONE Stop: 05/16/17 10:03 Last Admin: 05/16/17 08:30 Dose: 30 ml Magnesium Hydroxide (Milk Of Magnesia) Confirm Administered Dose 30 ml .ROUTE .STK-MED ONE Stop: 05/27/17 22:46 Last Admin: 05/28/17 06:25 Dose: 30 ml Metformin HCl (Glucophage) 250 mg PO BID [facility] Last Admin: 05/09/17 21:03 Dose: Not Given Metformin HCl (Glucophage) 250 mg PO BIDMEALS [facility] Last Admin: 06/02/17 08:49 Dose: 250 mg Non-Formulary Medication (Quetiapine [Seroquel Xr]) 1 tab PO ACLUNCH [facility] Quetiapine Fumarate (Seroquel) 200 mg PO BID@0700,1100 [facility] Last Admin: 05/03/17 07:32 Dose: Not Given Quetiapine Fumarate (Seroquel) 450 mg PO DAILY@2000 [facility] Last Admin: 05/28/17 20:05 Dose: 400 mg Quetiapine Fumarate (Seroquel) 200 mg PO DAILY@0700,1100 [facility] Last Admin: 05/10/17 21:46 Dose: Not Given Quetiapine Fumarate (Seroquel) 400 mg PO BEDTIME [facility] Last Admin: 05/10/17 19:19 Dose: 400 mg Quetiapine Fumarate (Seroquel) 50 mg PO BEDTIME [facility] Last Admin: 05/10/17 20:41 Dose: 50 mg Quetiapine Fumarate (Seroquel) Confirm Administered Dose 400 mg .ROUTE .STK-MED ONE Stop: 05/03/17 19:38 Last Admin: 05/04/17 00:57 Dose: Not Given Quetiapine Fumarate (Seroquel) Confirm Administered Dose 200 mg .ROUTE .STK-MED ONE Stop: 05/10/17 08:02 Last Admin: 05/10/17 20:41 Dose: Not Given Quetiapine Fumarate (Seroquel) 250 mg PO 0700,1100 BRIGITTE Last Admin: 05/12/17 06:43 Dose: 250 mg Quetiapine Fumarate (Seroquel) 450 mg PO BEDTIME BR[facility]ITTE Last Admin: 05/26/17 19:49 Dose: 450 mg Quetiapine Fumarate (Seroquel) Confirm Administered Dose 50 mg .ROUTE .STK-MED ONE Stop: 05/11/17 06:54 Last Admin: 05/11/17 11:55 Dose: Not Given Quetiapine Fumarate (Seroquel) 200 mg PO DAILY@0700,1100 BR[facility] Last Admin: 05/27/17 08:03 Dose: 200 mg Quetiapine Fumarate (Seroquel) 50 mg PO DAILY@0700,1100 BR[facility] Last Admin: 05/27/17 08:03 Dose: 50 mg Quetiapine Fumarate (Seroquel) Confirm Administered Dose 50 mg .ROUTE .STK-MED ONE Stop: 05/14/17 13:32 Last Admin: 05/14/17 13:35 Dose: Not Given Quetiapine Fumarate (Seroquel) Confirm Administered Dose 50 mg .ROUTE .STK-MED ONE Stop: 05/20/17 19:39 Last Admin: 05/20/17 21:26 Dose: 50 mg Quetiapine Fumarate (Seroquel) Confirm Administered Dose 50 mg .ROUTE .STK-MED ONE Stop: 05/22/17 19:54 Last Admin: 05/22/17 21:02 Dose: Not Given Quetiapine Fumarate (Seroquel) Confirm Administered Dose 50 mg .ROUTE .STK-MED ONE Stop: 05/24/17 19:28 Last Admin: 05/24/17 19:41 Dose: Not Given Quetiapine Fumarate (Seroquel) Confirm Administered Dose 50 mg .ROUTE .STK-MED ONE Stop: 05/25/17 20:09 Last Admin: 05/25/17 20:39 Dose: Not Given Quetiapine Fumarate (Seroquel) Confirm Administered Dose 50 mg .ROUTE .STK-MED ONE Stop: 05/26/17 18:48 Last Admin: 05/26/17 19:42 Dose: Not Given Quetiapine Fumarate (Quetiapine Fumarate) Confirm Administered Dose 400 mg PO .STK-MED ONE Stop: 05/26/17 19:37 Last Admin: 05/26/17 19:43 Dose: Not Given Quetiapine Fumarate (Quetiapine Fumarate) Confirm Administered Dose 400 mg PO .STK-MED ONE Stop: 05/27/17 19:18 Last Admin: 05/27/17 19:28 Dose: Not Given Quetiapine Fumarate (Quetiapine Fumarate) Confirm Administered Dose 400 mg PO .STK-MED ONE Stop: 06/01/17 19:29 Last Admin: 06/01/17 19:54 Dose: Not Given Quetiapine Fumarate (Quetiapine Fumarate) Confirm Administered Dose 400 mg PO .STK-MED ONE Stop: 06/02/17 19:47 Last Admin: 06/02/17 20:02 Dose: Not Given Tuberculin PPD (Aplisol) 5 unit IDERM ONETIME ONE Stop: 04/30/17 16:28 - Exam General: Obtunded HEENT: Pupils Equal, Pupils Reactive Neck: Supple Lungs: Clear to Auscultation, Normal Respiratory Effort Cardiovascular: Regular Rate, Regular Rhythm GI/Abdominal Exam: Normal Bowel Sounds Back Exam: Normal Inspection Extremities: Normal Inspection, Normal Range of Motion, Non-Tender, No Pedal Edema, Normal Capillary Refill Peripheral Pulses: 2+: Dorsalis Pedis (L), Dorsalis Pedis (R) Neurological: No New Focal Deficit Psy/Mental Status: Hallucinations - Problem List & Annotations (1) Subdural hemorrhage following injury SNOMED Code(s): 151282984 Code(s): S06.5X9A - TRAUM SUBDR HEM W LOC OF UNSP DURATION, INIT Status: Chronic Priority: High Current Visit: Yes Qualifiers: Encounter type: subsequent encounter Loss of consciousness presence/ duration: without LOC Qualified Code(s): S06.5X0D - Traumatic subdural hemorrhage without loss of consciousness, subsequent encounter (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 Code(s): F03.91 - UNSPECIFIED DEMENTIA WITH BEHAVIORAL DISTURBANCE Status: Chronic Priority: High Current Visit: Yes Qualifiers: Dementia behavioral disturbance: with behavioral disturbance Qualified Code (s): F02.81 - Dementia in other diseases classified elsewhere with behavioral disturbance (3) Paranoid schizophrenia, chronic condition SNOMED Code(s): 15349209 Code(s): F20.0 - PARANOID SCHIZOPHRENIA Status: Chronic Priority: High Current Visit: Yes (4) Diabetes mellitus SNOMED Code(s): 88436247 Code(s): E11.9 - TYPE 2 DIABETES MELLITUS WITHOUT COMPLICATIONS Status: Chronic Priority: Medium Current Visit: Yes Qualifiers: Diabetes mellitus type: type 2 Diabetes mellitus complication status: with hyperglycemia Diabetes mellitus long-term insulin use: without manager long term care use Qualified Code(s): E11.65 - Type 2 diabetes mellitus with hyperglycemia (5) Neurogenic bladder SNOMED Code(s): 626066965 Code(s): N31.9 - NEUROMUSCULAR DYSFUNCTION OF BLADDER, UNSPECIFIED Status: Acute Current Visit: Yes - Problem List Review Problem List Initiated/Reviewed/Updated: Yes - My Orders Last 24 Hours: My Active Orders 06/02/17 18:06 Blood Glucose Check, Bedside [RC] QIDACANDBED 06/02/17 20:00 Insulin Detemir [Levemir] 5 unit SUBCUT BEDTIME 06/03/17 09:45 Dextrose 5%-0.45% NaCl [Dextrose 5%-1/2 NS] 1,000 ml IV ASDIRECTED 06/05/17 07:00 Head wo Cont [CT] Routine - Assessment Assessment:: Fever - Plan Plan:: Pt admit to swing bed for adjustment of psych. medications, pain management, constipation, overflow incontinence, strengthening, and decrease in intake. Dementia and adjustment of psych medications: Administer medications as pt tolerates, May crush and give in soft foods. With periods of agitation, start Ativan 0.5 mg tid as needed to keep pt comfortable and resting. Pain Management: Assess and treat headache and neck pain. Medications ordered for mild, moderate, and severe pain. Constipation: Rectal suppository or enema every 2-3 days as needed. Overflow incontinence: Carpio catheter to bedside drainage. weakness: PT/OT continue to offer strengthening/evaluation as pt has more periods of being alert/awake. decreased oral intake: IVD'cd Mechanical soft diet as tolerated, when alert. Diabetes with hyperglycemia: Monitor blood sugars. Offer Metformin when alert and able to swallow medication. 05/06/17 Agree with above 1 Subdural hematoma: Ct head repeated on 05/05/17 shows slight increase in the size of the right subdural hematoma maira 10-13mm and also there is a small fluid collection over the left side about 7mm which is new.Pt does seem to be clinically improving and presently is off Iv fluids and tolerating oral diet. I did call , Neurosurgeon carbonation equipment tender. 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 reassured that happen some time. He did recommend to repeat Ct head in 1 month time from time of injury to make sure the hematoma is resolving( as patient has schizophrenia and is hard to monitor his neurologic status). 2) Neurogenic bladder: Pt has had chronic urinary retention for more than a month. He has been on carpio catheter for urinary drainage. Apparently Pt has not had successful clamping and drainage and her does not void well when off catheter. I have discussed patient with the urologistat Curtis Wilkerson. Dr capellan does agree with this being neurogenic bladder issue , which will cause intermittent retention overflow. Considering his severe schizophrenia and age, Dr. Capellan's recommendation has been to try straight catheterizing this patient as needed. But patient in the past gets agitated when he needs cauterization, but once catheter is in place he does keep the carpio in place. does recommend continuos cauterization, as there is not much option available considering his co-morbid conditions,. Also the cholinergic effect of the antipsychotics he is on can make his neurogenic bladder and urinary retention worse. Per Dr Capellan's recommendation will try keeping patient on continuous cauterization weight the risks and benefits. 05/10/17 Pt is running low grade fever just now, with his dementia and schizophrenia, hard to take any history from patient. No change in status. Clinical exam of patient is normal. refusing tylenol. Will get workup with CBC , UA and chest xray and followup with result. His CBC and Chest xray are normal. UA has not been done. This could be transient elevation of the temperature. Will monitor him closely. If he continues to spike will work it up. 05/20/[address] Thrasher on management of patient. We are in contact with family and Guardian and consensus to keep comfortable and continue current cares and management for agitation as needed and daily cares. Patient does appear to have improved agitation with increased Seroquel dosing. 05/25/17 Patient plan to continue current medications and continue meals as tolerated. Nursing staff have been at bedside feeding patient for meals. Patient has gotten up with PT/OT but only walked a few steps with assistance. He remains in bed most of the day. We will continue to monitor for sore formation and try frequent up to chair and feedings. Patient does respond to feeding and does eat little amounts and does state he is full. Continued f/u with Dr. Thrasher. F/u CT as scheduled in a few weeks. No further changes. 06/03/17 No changes to patient plan. Adjustment of diet to soft mechanical and thickened liquids. Patient continues to get weaker overall but does occasionally get up with assistance to walk a few steps with PT/OT. He does not get up without assistance due to fall risk and recent hemorrhage. Patient is not as combative as he was since the prior increase in Seroquel. He does rest comfortably and continue to speak to internal stimuli.
[2017-06-03] MEDS: Dextrose 5%-0.45% NaCl 1,000 ML IV SCH ×2 (15:17→21:48)
[2017-06-03] MEDS ORDERED: QUEtiapine Fumarate 200 MG TABLET PO ONE (19:37)
[2017-06-03] MEDS: Citalopram 20 MG Tab PO SCH (19:47)
[2017-06-03] MEDS: Erythromycin Base 0.5% Ophth Oint 3.5 GM Tube EYERT SCH (19:47)
[2017-06-03] MEDS: Insulin Detemir 100 Units/ML 3 ML Pen SUBCUT SCH (19:48)
[2017-06-03] MEDS: fentaNYL 12 MCG/HR Transdermal Patch TRDERM SCH (19:50)
[2017-06-04] MEDS: LORazepam 2 MG/ML MDV IVPUSH PRN ×2 (02:10→20:41)
[2017-06-04] MEDS: Dextrose 5%-0.45% NaCl 1,000 ML IV SCH ×2 (04:20→11:05)
[2017-06-04] MEDS: QUEtiapine Fumarate 200 MG TABLET PO SCH ×2 (06:09→10:39)
[2017-06-04] MEDS: Morphine 2 MG/ML Syringe IVPUSH PRN ×2 (10:24→16:33)
[2017-06-04] MEDS: Acetaminophen 325 MG Tab PO SCH ×2 (10:28→20:34)
[2017-06-04] MEDS: Lisinopril 10 MG Tab PO SCH (10:29)
[2017-06-04] MEDS: Insulin Detemir 100 Units/ML 3 ML Pen SUBCUT SCH ×2 (10:32→23:18)
[2017-06-04] MEDS: Calcitonin (Salmon) Nasal Spray 3.7 ML Bottle NAS SCH (10:33)
[2017-06-04] MEDS: Sodium Chloride 0.9% 10 ML Syringe FLUSH SCH ×2 (10:34→20:39)
[2017-06-04] MEDS: fentaNYL 25 MCG/HR Transdermal Patch TRDERM SCH (10:39)
[2017-06-04] MEDS: Citalopram 20 MG Tab PO SCH (20:33)
[2017-06-04] MEDS ORDERED: QUEtiapine Fumarate 200 MG TABLET PO ONE (20:37)
[2017-06-04] MEDS: Erythromycin Base 0.5% Ophth Oint 3.5 GM Tube EYERT SCH (20:40)
[2017-06-05] MEDS: Dextrose 5%-0.45% NaCl 1,000 ML IV SCH (00:22)
[2017-06-05] MEDS: QUEtiapine Fumarate 200 MG TABLET PO SCH ×2 (06:19→13:01)
[2017-06-05] MEDS: Morphine 2 MG/ML Syringe IVPUSH PRN (09:30)
[2017-06-05] MEDS: Calcitonin (Salmon) Nasal Spray 3.7 ML Bottle NAS SCH (13:02)
[2017-06-05] MEDS: Acetaminophen 325 MG Tab PO SCH ×2 (13:03→20:43)
[2017-06-05] MEDS: Lisinopril 10 MG Tab PO SCH (13:04)
[2017-06-05] MEDS: Sodium Chloride 0.9% 10 ML Syringe FLUSH SCH ×2 (13:27→19:36)
[2017-06-05] MEDS: Insulin Detemir 100 Units/ML 3 ML Pen SUBCUT SCH ×2 (14:07→22:33)
--- NOTE | 2017-06-05 17:31 | CT ---
DATE OF SERVICE: 06/05/17 CLINICAL DATA: Subdural Hematoma UNENHANCED BRAIN CT Multislice acquisition through the brain without IV contrast was performed. Comparison is made to a prior exam dated 05/05/2017. The bilateral subdural hematomas on the prior exam have significantly decreased in volume bilaterally. There is very minimal residual subdural hematoma on the left. 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 Its maximum depth is 8 mm. No evidence of new hemorrhage. The remainder of the exam is unchanged from the prior. [id number] [facility]
[2017-06-05] MEDS: Acetaminophen/HYDROcodone 325-5 MG Tab PO PRN ×2 (19:32→23:41)
[2017-06-05] MEDS: Citalopram 20 MG Tab PO SCH (19:33)
[2017-06-05] MEDS: Erythromycin Base 0.5% Ophth Oint 3.5 GM Tube EYERT SCH (19:36)
[2017-06-05] MEDS ORDERED: QUEtiapine Fumarate 200 MG TABLET PO ONE (19:38)
[2017-06-06] MEDS: LORazepam 2 MG/ML MDV IVPUSH PRN ×2 (01:16→21:45)
[2017-06-06] MEDS: Sodium Chloride 0.9% 10 ML Syringe FLUSH SCH ×3 (08:00→21:46)
[2017-06-06] MEDS: Lisinopril 10 MG Tab PO SCH (15:46)
[2017-06-06] MEDS: QUEtiapine Fumarate 200 MG TABLET PO SCH (15:47)
[2017-06-06] MEDS: Calcitonin (Salmon) Nasal Spray 3.7 ML Bottle NAS SCH (15:48)
[2017-06-06] MEDS: Insulin Detemir 100 Units/ML 3 ML Pen SUBCUT SCH ×2 (15:48→20:40)
[2017-06-06] MEDS: Acetaminophen 325 MG Tab PO SCH ×2 (15:49→19:34)
[2017-06-06] MEDS: Morphine 2 MG/ML Syringe IVPUSH PRN (17:00)
[2017-06-06] MEDS ORDERED: QUEtiapine Fumarate 200 MG TABLET PO ONE (19:29)
[2017-06-06] MEDS: Erythromycin Base 0.5% Ophth Oint 3.5 GM Tube EYERT SCH (19:35)
[2017-06-06] MEDS: Citalopram 20 MG Tab PO SCH (19:35)
[2017-06-06] MEDS: Acetaminophen/HYDROcodone 325-5 MG Tab PO PRN (19:36)
[2017-06-07] MEDS: QUEtiapine Fumarate 200 MG TABLET PO SCH ×3 (08:43→13:18)
[2017-06-07] MEDS: Acetaminophen 325 MG Tab PO SCH ×2 (08:49→21:34)
[2017-06-07] MEDS: Lisinopril 10 MG Tab PO SCH (08:49)
[2017-06-07] MEDS: Calcitonin (Salmon) Nasal Spray 3.7 ML Bottle NAS SCH (09:00)
[2017-06-07] MEDS: fentaNYL 25 MCG/HR Transdermal Patch TRDERM SCH (09:02)
[2017-06-07] MEDS: Sodium Chloride 0.9% 10 ML Syringe FLUSH SCH ×2 (09:55→19:25)
[2017-06-07] MEDS: Insulin Detemir 100 Units/ML 3 ML Pen SUBCUT SCH ×2 (10:05→21:33)
[2017-06-07] MEDS: Acetaminophen/HYDROcodone 325-5 MG Tab PO PRN ×2 (11:34→19:12)
[2017-06-07] MEDS: Morphine 2 MG/ML Syringe IVPUSH PRN (13:18)
[2017-06-07] MEDS ORDERED: QUEtiapine Fumarate 200 MG TABLET PO ONE (19:06)
[2017-06-07] MEDS ORDERED: QUEtiapine 25 MG Tab ONE (19:06)
[2017-06-07] MEDS: Citalopram 20 MG Tab PO SCH (19:09)
[2017-06-07] MEDS: LORazepam 2 MG/ML MDV IVPUSH PRN (19:25)
[2017-06-07] MEDS: Erythromycin Base 0.5% Ophth Oint 3.5 GM Tube EYERT SCH (21:33)
[2017-06-08] MEDS ORDERED: QUEtiapine 25 MG Tab ONE ×2 (05:59→10:14)
[2017-06-08] MEDS: QUEtiapine Fumarate 200 MG TABLET PO SCH ×2 (06:53→10:17)
[2017-06-08] MEDS: LORazepam 2 MG/ML MDV IVPUSH PRN ×3 (07:40→21:05)
[2017-06-08] MEDS: Sodium Chloride 0.9% 10 ML Syringe FLUSH SCH ×2 (07:40→20:00)
[2017-06-08] MEDS: Lisinopril 10 MG Tab PO SCH (07:53)
[2017-06-08] MEDS: Acetaminophen 325 MG Tab PO SCH ×2 (07:53→19:02)
[2017-06-08] MEDS: Insulin Detemir 100 Units/ML 3 ML Pen SUBCUT SCH ×2 (08:01→19:28)
--- NOTE | 2017-06-08 08:50 | PCM.PN ---
- General Info Date of Service: 06/08/17 Subjective Update: This is a 86yo M with paranoid schizophrenia, recent subdural hemorrhage and dementia with gradual decline in cognition and strength. We have continually tried to increase caloric intake without success as patient will not eat more than a few spoonfuls and will stop and if he is fed any further will almost choke and will cough. He does not exert much strength with exercises and does not assist in movement. He has become weaker day by day. He does rest comfortably in bed during the day and can be redirected or shifted if he does move close to the edges of the bed. We did try and fluid hydrate and with fluids did normalize his CMP but no cognitive improvement was seen. - Review of Systems General: Reports: Weakness, Other (unable to obtain) - Patient Data Vitals - Most Recent: Last Vital Signs Temp 36.5 C 06/06/17 08:00 Pulse 91 06/07/17 08:00 Resp 16 06/06/17 08:00 BP 129/63 06/08/17 07:53 Pulse Ox 96 06/07/17 08:00 Weight - Most Recent: 60.237 kg I&O - Last 24 Hours: Intake & Output 06/07/17 06/08/17 06/08/17 22:59 06:59 14:59 Intake Total 100 Output Total 450 Balance -350 Lab Results Last 24 Hours: Laboratory Results - last 24 hr 06/07/17 06/07/17 06/08/17 Range/Units 10:41 16:13 05:55 POC Glucose 168 H 131 H 106 (74-110) mg/dL Med Orders - Current: Current Medications Acetaminophen (Tylenol) 650 mg PO BID [facility] Last Admin: 06/08/17 07:53 Dose: 650 mg Hydrocodone Bitart/Acetaminophen (Harrison 325-5 Mg) 1 tab PO Q4H PRN PRN Reason: Pain (moderate 4-6) Last Admin: 06/06/17 19:36 Dose: 1 tab Bisacodyl (Dulcolax) 10 mg RECTAL DAILY PRN PRN Reason: Constipation Last Admin: 05/30/17 16:23 Dose: 10 mg Calcitonin [place] (Miacalcin Nasal [place]) 3.7 ml MIKY DAILY [facility] Last Admin: 06/07/17 09:00 Dose: 1 spray Citalopram Hydrobromide (Celexa) 20 mg PO BEDTIME [facility] Last Admin: 06/07/17 19:09 Dose: 20 mg Docusate Sodium (Colace) 100 mg PO BID PRN PRN Reason: constipation Last Admin: 05/20/17 19:45 Dose: 100 mg Erythromycin (Erythromycin 0.5% Ophth Oint) 0 gm EYERT BEDTIME [facility] Last Admin: 06/07/17 21:33 Dose: Not Given Fentanyl (Duragesic) 25 mcg TRDERM Q72H [facility] Last Admin: 06/07/17 09:02 Dose: 25 mcg Insulin Detemir (Levemir) 3 unit SUBCUT Q12HR [facility] Last Admin: 06/08/17 08:01 Dose: Not Given Lisinopril (Prinivil) 10 mg PO DAILY [facility] Last Admin: 06/08/17 07:53 Dose: 10 mg Lorazepam (Ativan) 0.5 mg PO Q8H PRN PRN Reason: Anxiety Last Admin: 05/31/17 04:59 Dose: 0.5 mg Lorazepam (Ativan) 1 mg IVPUSH Q4H PRN PRN Reason: Anxiety Last Admin: 06/08/17 07:40 Dose: 1 mg Miscellaneous Information (Remove Patch) 1 ea TRDERM ASDIRECTED [facility] Morphine Sulfate (Morphine) 2 mg IVPUSH Q2H PRN PRN Reason: Pain (severe 7-10) Last Admin: 06/07/17 13:18 Dose: 2 mg Metronidazole 0.75% (Cream) 1 applic TOP DAILY [facility] Last Admin: 06/07/17 09:00 Dose: 1 applic Quetiapine Fumarate (Quetiapine Fumarate) 200 mg PO DAILY@0700,1100 [facility] Last Admin: 06/08/17 06:53 Dose: 200 mg Quetiapine Fumarate (Seroquel) 50 mg PO DAILY@0700,1100 [facility] Last Admin: 06/08/17 06:53 Dose: 50 mg Quetiapine Fumarate (Seroquel) 400 mg PO BEDTIME [facility] Last Admin: 06/07/17 21:34 Dose: Not Given Quetiapine Fumarate (Seroquel) 50 mg PO BEDTIME [facility] Last Admin: 06/07/17 21:34 Dose: Not Given Senna/Docusate Sodium (Senna Plus) 1 tab PO BID [facility] Last Admin: 06/08/17 07:53 Dose: 1 tab Sodium Biphosphate/Sodium Phosphate (Fleet Enema) 133 ml RECTAL ASDIRECTED PRN PRN Reason: Constipation Sodium Chloride (Saline Flush) 10 ml FLUSH BID [facility] Last Admin: 06/07/17 19:25 Dose: 10 ml Discontinued Medications Acetaminophen (Tylenol) Confirm Administered Dose 325 mg .ROUTE .STK-MED ONE Stop: 05/19/17 08:14 Last Admin: 05/19/17 08:28 Dose: 325 mg Hydrocodone Bitart/Acetaminophen (Harrison 325-5 Mg) 0.5 tab PO Q4H PRN PRN Reason: Pain (moderate 4-6) Last Admin: 05/04/17 13:51 Dose: 0.5 tab Hydrocodone Bitart/Acetaminophen (Harrison 325-5 Mg) Confirm Administered Dose 1 tab .ROUTE .STK-MED ONE Stop: 05/18/17 19:40 Last Admin: 05/18/17 21:39 Dose: Not Given Calamine/Phenol (Calmoseptine) 113 gm TOP .STK-MED ONE Stop: 05/17/17 08:01 Calcitonin [place] (Miacalcin Nasal [place]) 0 ml MIKY DAILY [facility] Last Admin: 05/04/17 08:14 Dose: 1 spray Ciprofloxacin (Ciprofloxacin Hcl) 500 mg PO BID [facility] Last Admin: 05/19/17 08:31 Dose: 500 mg Ciprofloxacin (Ciprofloxacin Hcl) Confirm Administered Dose 500 mg .ROUTE .STK- MED ONE Stop: 05/10/17 23:06 Last Admin: 05/10/17 23:12 Dose: 500 mg Fentanyl (Duragesic) 12 mcg TRDERM Q72H [facility] Stop: 06/04/17 08:00 Last Admin: 06/03/17 19:50 Dose: 12 mcg Fentanyl (Duragesic) Confirm Administered Dose 12 mcg .ROUTE .STK-MED ONE Stop: 05/25/17 17:03 Last Admin: 05/25/17 18:33 Dose: Not Given Haloperidol Lactate (Haldol) Confirm Administered Dose 5 mg .ROUTE .STK-MED ONE Stop: 05/01/17 21:31 Last Admin: 05/02/17 03:32 Dose: Not Given Haloperidol Lactate (Haldol) 5 mg IVPUSH ONETIME ONE Stop: 05/01/17 21:01 Last Admin: 05/02/17 02:30 Dose: 2.5 mg Haloperidol Lactate (Haldol) 5 mg IVPUSH ONETIME ONE Stop: 05/06/17 21:26 Last Admin: 05/07/17 06:51 Dose: Not Given Sodium Chloride (Normal Saline) 1,000 mls @ 125 mls/hr IV ASDIRECTED [facility] Last Admin: 05/01/17 10:50 Dose: 125 mls/hr Dextrose/Sodium Chloride (Dextrose 5%-1/2 Ns) 1,000 mls @ 125 mls/hr IV ASDIRECTED [facility] Stop: 05/03/17 00:09 Last Admin: 05/01/17 21:30 Dose: 125 mls/hr Lactated Ringer's (Ringers, Lactated) 1,000 mls @ 250 mls/hr IV ASDIRECTED [facility] Lactated Ringer's (Ringers, Lactated) 1,000 mls @ 200 mls/hr IV ASDIRECTED [facility] Dextrose/Sodium Chloride (Dextrose 5%-1/2 Ns) 1,000 mls @ 150 mls/hr IV ASDIRECTED [facility] Last Admin: 06/05/17 00:22 Dose: 150 mls/hr Insulin Detemir (Levemir) 5 unit SUBCUT BEDTIME [facility] Last Admin: 06/03/17 19:48 Dose: 5 units Lorazepam (Ativan) Confirm Administered Dose 2 mg .ROUTE .STK-MED ONE Stop: 05/01/17 21:31 Last Admin: 05/02/17 03:32 Dose: Not Given Lorazepam (Ativan) 2 mg IVPUSH ONETIME ONE Stop: 05/01/17 21:01 Last Admin: 05/02/17 02:35 Dose: 1 mg Lorazepam (Ativan) Confirm Administered Dose 2 mg .ROUTE .STK-MED ONE Stop: 05/05/17 15:27 Last Admin: 05/05/17 17:48 Dose: Not Given Lorazepam (Ativan) 2 mg IVPUSH ONETIME ONE Stop: 05/05/17 15:50 Last Admin: 05/05/17 15:40 Dose: 2 mg Lorazepam (Ativan) Confirm Administered Dose 2 mg .ROUTE .STK-MED ONE Stop: 05/10/17 19:09 Last Admin: 05/10/17 19:10 Dose: 2 mg Magnesium Hydroxide (Milk Of Magnesia) Confirm Administered Dose 30 ml .ROUTE .STK-MED ONE Stop: 05/16/17 10:03 Last Admin: 05/16/17 08:30 Dose: 30 ml Magnesium Hydroxide (Milk Of Magnesia) Confirm Administered Dose 30 ml .ROUTE .STK-MED ONE Stop: 05/27/17 22:46 Last Admin: 05/28/17 06:25 Dose: 30 ml Metformin HCl (Glucophage) 250 mg PO BID [facility] Last Admin: 05/09/17 21:03 Dose: Not Given Metformin HCl (Glucophage) 250 mg PO BIDMEALS [facility] Last Admin: 06/02/17 08:49 Dose: 250 mg Non-Formulary Medication (Quetiapine [Seroquel Xr]) 1 tab PO ACLUNCH [facility] Quetiapine Fumarate (Seroquel) 200 mg PO BID@0700,1100 [facility] Last Admin: 05/03/17 07:32 Dose: Not Given Quetiapine Fumarate (Seroquel) 450 mg PO DAILY@2000 [facility] Last Admin: 05/28/17 20:05 Dose: 400 mg Quetiapine Fumarate (Seroquel) 200 mg PO DAILY@0700,1100 [facility] Last Admin: 05/10/17 21:46 Dose: Not Given Quetiapine Fumarate (Seroquel) 400 mg PO BEDTIME [facility] Last Admin: 05/10/17 19:19 Dose: 400 mg Quetiapine Fumarate (Seroquel) 50 mg PO BEDTIME [facility] Last Admin: 05/10/17 20:41 Dose: 50 mg Quetiapine Fumarate (Seroquel) Confirm Administered Dose 400 mg .ROUTE .STK-MED ONE Stop: 05/03/17 19:38 Last Admin: 05/04/17 00:57 Dose: Not Given Quetiapine Fumarate (Seroquel) Confirm Administered Dose 200 mg .ROUTE .STK-MED ONE Stop: 05/10/17 08:02 Last Admin: 05/10/17 20:41 Dose: Not Given Quetiapine Fumarate (Seroquel) 250 mg PO 0700,1100 [facility] Last Admin: 05/12/17 06:43 Dose: 250 mg Quetiapine Fumarate (Seroquel) 450 mg PO BEDTIME [facility] Last Admin: 05/26/17 19:49 Dose: 450 mg Quetiapine Fumarate (Seroquel) Confirm Administered Dose 50 mg .ROUTE .STK-MED ONE Stop: 05/11/17 06:54 Last Admin: 05/11/17 11:55 Dose: Not Given Quetiapine Fumarate (Seroquel) 200 mg PO DAILY@0700,1100 [facility] Last Admin: 05/27/17 08:03 Dose: 200 mg Quetiapine Fumarate (Seroquel) 50 mg PO DAILY@0700,1100 [facility] Last Admin: 05/27/17 08:03 Dose: 50 mg Quetiapine Fumarate (Seroquel) Confirm Administered Dose 50 mg .ROUTE .STK-MED ONE Stop: 05/14/17 13:32 Last Admin: 05/14/17 13:35 Dose: Not Given Quetiapine Fumarate (Seroquel) Confirm Administered Dose 50 mg .ROUTE .STK-MED ONE Stop: 05/20/17 19:39 Last Admin: 05/20/17 21:26 Dose: 50 mg Quetiapine Fumarate (Seroquel) Confirm Administered Dose 50 mg .ROUTE .STK-MED ONE Stop: 05/22/17 19:54 Last Admin: 05/22/17 21:02 Dose: Not Given Quetiapine Fumarate (Seroquel) Confirm Administered Dose 50 mg .ROUTE .STK-MED ONE Stop: 05/24/17 19:28 Last Admin: 05/24/17 19:41 Dose: Not Given Quetiapine Fumarate (Seroquel) Confirm Administered Dose 50 mg .ROUTE .STK-MED ONE Stop: 05/25/17 20:09 Last Admin: 05/25/17 20:39 Dose: Not Given Quetiapine Fumarate (Seroquel) Confirm Administered Dose 50 mg .ROUTE .STK-MED ONE Stop: 05/26/17 18:48 Last Admin: 05/26/17 19:42 Dose: Not Given Quetiapine Fumarate (Quetiapine Fumarate) Confirm Administered Dose 400 mg PO .STK-MED ONE Stop: 05/26/17 19:37 Last Admin: 05/26/17 19:43 Dose: Not Given Quetiapine Fumarate (Quetiapine Fumarate) Confirm Administered Dose 400 mg PO .STK-MED ONE Stop: 05/27/17 19:18 Last Admin: 05/27/17 19:28 Dose: Not Given Quetiapine Fumarate (Quetiapine Fumarate) Confirm Administered Dose 400 mg PO .STK-MED ONE Stop: 06/01/17 19:29 Last Admin: 06/01/17 19:54 Dose: Not Given Quetiapine Fumarate (Quetiapine Fumarate) Confirm Administered Dose 400 mg PO .STK-MED ONE Stop: 06/02/17 19:47 Last Admin: 06/02/17 20:02 Dose: Not Given Quetiapine Fumarate (Quetiapine Fumarate) Confirm Administered Dose 400 mg PO .STK-MED ONE Stop: 06/03/17 19:38 Last Admin: 06/03/17 19:47 Dose: Not Given Quetiapine Fumarate (Quetiapine Fumarate) Confirm Administered Dose 400 mg PO .STK-MED ONE Stop: 06/04/17 20:38 Last Admin: 06/04/17 23:12 Dose: Not Given Quetiapine Fumarate (Quetiapine Fumarate) Confirm Administered Dose 400 mg PO .STK-MED ONE Stop: 06/05/17 19:39 Last Admin: 06/05/17 20:45 Dose: Not Given Quetiapine Fumarate (Quetiapine Fumarate) Confirm Administered Dose 400 mg PO .STK-MED ONE Stop: 06/06/17 19:30 Last Admin: 06/06/17 20:36 Dose: Not Given Quetiapine Fumarate (Seroquel) Confirm Administered Dose 50 mg .ROUTE .STK-MED ONE Stop: 06/07/17 19:07 Last Admin: 06/07/17 21:33 Dose: Not Given Quetiapine Fumarate (Quetiapine Fumarate) Confirm Administered Dose 400 mg PO .STK-MED ONE Stop: 06/07/17 19:07 Last Admin: 06/07/17 21:32 Dose: Not Given Quetiapine Fumarate (Seroquel) Confirm Administered Dose 50 mg .ROUTE .STK-MED ONE Stop: 06/08/17 06:00 Last Admin: 06/08/17 06:12 Dose: Not Given Trimethoprim/Sulfamethoxazole (Septra Ds) 1 tab PO BID [facility] Stop: 06/03/17 23:59 Last Admin: 06/03/17 19:47 Dose: 1 tab Tuberculin PPD (Aplisol) 5 unit IDERM ONETIME ONE Stop: 04/30/17 16:28 - Exam General: Lethargic, Obtunded - Problem List & Annotations (1) Subdural hemorrhage following injury SNOMED Code(s): 431195845 Code(s): S06.5X9A - TRAUM SUBDR HEM W LOC OF UNSP DURATION, INIT Status: Chronic Priority: High Current Visit: Yes Qualifiers: Encounter type: subsequent encounter Loss of consciousness presence/ duration: without LOC Qualified Code(s): S06.5X0D - Traumatic subdural hemorrhage without loss of consciousness, subsequent encounter (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 Code(s): F03.91 - UNSPECIFIED DEMENTIA WITH BEHAVIORAL DISTURBANCE Status: Chronic Priority: High Current Visit: Yes Qualifiers: Dementia behavioral disturbance: with behavioral disturbance Qualified Code (s): F02.81 - Dementia in other diseases classified elsewhere with behavioral disturbance (3) Paranoid schizophrenia, chronic condition SNOMED Code(s): 96182622 Code(s): F20.0 - PARANOID SCHIZOPHRENIA Status: Chronic Priority: High Current Visit: Yes (4) Diabetes mellitus SNOMED Code(s): 71242507 Code(s): E11.9 - TYPE 2 DIABETES MELLITUS WITHOUT COMPLICATIONS Status: Chronic Priority: Medium Current Visit: Yes Qualifiers: Diabetes mellitus type: type 2 Diabetes mellitus complication status: with hyperglycemia 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 medications, pain management, constipation, overflow incontinence, strengthening, and decrease in intake. Dementia and adjustment of psych medications: Administer medications as pt tolerates, May crush and give in soft foods. With periods of agitation, start Ativan 0.5 mg tid as needed to keep pt comfortable and resting. Pain Management: Assess and treat headache and neck pain. Medications ordered for mild, moderate, and severe pain. Constipation: Rectal suppository or enema every 2-3 days as needed. Overflow incontinence: Carpio catheter to bedside drainage. weakness: PT/OT continue to offer strengthening/evaluation as pt has more periods of being alert/awake. decreased oral intake: IVD'cd Mechanical soft diet as tolerated, when alert. Diabetes with hyperglycemia: Monitor blood sugars. Offer Metformin when alert and able to swallow medication. 05/06/17 Agree with above 1 Subdural hematoma: Ct head repeated on 05/05/17 shows slight increase in the size of the right subdural hematoma maira 10-13mm and also there is a small fluid collection over the left side about 7mm which is new.Pt does seem to be clinically improving and presently is off Iv fluids and tolerating oral diet. I did call , Neurosurgeon teacher of the emotionally disturbed. 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 reassured that happen some time. He did recommend to repeat Ct head in 1 month time from time of injury to make sure the hematoma is resolving( as patient has schizophrenia and is hard to monitor his neurologic status). 2) Neurogenic bladder: Pt has had chronic urinary retention for more than a month. He has been on carpio catheter for urinary drainage. Apparently Pt has not had successful clamping and drainage and her does not void well when off catheter. I have discussed patient with the urologistat Acevedocraig Wilkerson. Dr capellan does agree with this being neurogenic bladder issue , which will cause intermittent retention overflow. Considering his severe schizophrenia and age, Dr. Capellan's recommendation has been to try straight catheterizing this patient as needed. But patient in the past gets agitated when he needs cauterization, but once catheter is in place he does keep the carpio in place. does recommend continuos cauterization, as there is not much option available considering his co-morbid conditions,. Also the cholinergic effect of the antipsychotics he is on can make his neurogenic bladder and urinary retention worse. Per Dr Capellan's recommendation will try keeping patient on continuous cauterization weight the risks and benefits. 05/10/17 Pt is running low grade fever just now, with his dementia and schizophrenia, hard to take any history from patient. No change in status. Clinical exam of patient is normal. refusing tylenol. Will get workup with CBC , UA and chest xray and followup with result. His CBC and Chest xray are normal. UA has not been done. This could be transient elevation of the temperature. Will monitor him closely. If he continues to spike will work it up. 05/20/[address] Thrasher on management of patient. We are in contact with family and Guardian and consensus to keep comfortable and continue current cares and management for agitation as needed and daily cares. Patient does appear to have improved agitation with increased Seroquel dosing. 05/25/17 Patient plan to continue current medications and continue meals as tolerated. Nursing staff have been at bedside feeding patient for meals. Patient has gotten up with PT/OT but only walked a few steps with assistance. He remains in bed most of the day. We will continue to monitor for sore formation and try frequent up to chair and feedings. Patient does respond to feeding and does eat little amounts and does state he is full. Continued f/u with Dr. Thrasher. F/u CT as scheduled in a few weeks. No further changes. 06/08/17 We will continue current cares and medication. We will discuss with family, Guardian and care team about plan of action.
[2017-06-08] MEDS: Calcitonin (Salmon) Nasal Spray 3.7 ML Bottle NAS SCH (10:20)
[2017-06-08] MEDS: Acetaminophen/HYDROcodone 325-5 MG Tab PO PRN ×2 (13:10→19:03)
[2017-06-08] MEDS: QUEtiapine Fumarate 200 MG TABLET PO ONE ×2 (19:04→19:32)
[2017-06-08] MEDS: Citalopram 20 MG Tab PO SCH (19:04)
[2017-06-08] MEDS: Erythromycin Base 0.5% Ophth Oint 3.5 GM Tube EYERT SCH (19:30)
[2017-06-09] MEDS: QUEtiapine Fumarate 200 MG TABLET PO SCH ×2 (08:27→12:52)
[2017-06-09] MEDS: Insulin Detemir 100 Units/ML 3 ML Pen SUBCUT SCH ×3 (08:28→21:56)
[2017-06-09] MEDS: Acetaminophen 325 MG Tab PO SCH ×2 (08:29→21:57)
[2017-06-09] MEDS: Calcitonin (Salmon) Nasal Spray 3.7 ML Bottle NAS SCH (08:29)
[2017-06-09] MEDS: Lisinopril 10 MG Tab PO SCH (08:46)
[2017-06-09] MEDS: Sodium Chloride 0.9% 10 ML Syringe FLUSH SCH ×2 (09:40→21:58)
[2017-06-09] MEDS: LORazepam 2 MG/ML MDV IVPUSH PRN (10:05)
[2017-06-09] MEDS: Acetaminophen/HYDROcodone 325-5 MG Tab PO PRN (12:52)
[2017-06-09] MEDS: Morphine 2 MG/ML Syringe IVPUSH PRN (19:30)
[2017-06-09] MEDS ORDERED: QUEtiapine Fumarate 200 MG TABLET PO ONE (21:27)
[2017-06-09] MEDS: Citalopram 20 MG Tab PO SCH (21:55)
[2017-06-09] MEDS: Erythromycin Base 0.5% Ophth Oint 3.5 GM Tube EYERT SCH (21:55)
[2017-06-10] MEDS: Morphine 2 MG/ML Syringe IVPUSH PRN (02:00)
[2017-06-10] MEDS: LORazepam 0.5 MG Tab PO PRN ×2 (02:00→16:34)
[2017-06-10] MEDS: LORazepam 2 MG/ML MDV IVPUSH PRN (02:15)
[2017-06-10] MEDS: QUEtiapine Fumarate 200 MG TABLET PO SCH ×2 (09:07→11:57)
[2017-06-10] MEDS: Acetaminophen 325 MG Tab PO SCH ×2 (09:08→19:44)
[2017-06-10] MEDS: Lisinopril 10 MG Tab PO SCH (09:08)
[2017-06-10] MEDS: Calcitonin (Salmon) Nasal Spray 3.7 ML Bottle NAS SCH (09:10)
[2017-06-10] MEDS: Sodium Chloride 0.9% 10 ML Syringe FLUSH SCH ×2 (09:10→19:42)
[2017-06-10] MEDS: fentaNYL 25 MCG/HR Transdermal Patch TRDERM SCH (09:14)
[2017-06-10] MEDS: Insulin Detemir 100 Units/ML 3 ML Pen SUBCUT SCH ×3 (09:51→20:49)
[2017-06-10] MEDS ORDERED: QUEtiapine Fumarate 200 MG TABLET PO ONE (19:35)
[2017-06-10] MEDS: Citalopram 20 MG Tab PO SCH (19:41)
[2017-06-11] MEDS: Morphine 2 MG/ML Syringe IVPUSH PRN ×2 (03:00→19:02)
[2017-06-11] MEDS: Erythromycin Base 0.5% Ophth Oint 3.5 GM Tube EYERT SCH ×2 (03:12→19:42)
[2017-06-11] MEDS: Calcitonin (Salmon) Nasal Spray 3.7 ML Bottle NAS SCH (09:12)
[2017-06-11] MEDS: Bisacodyl 10 MG Supp RECTAL PRN (09:13)
[2017-06-11] MEDS: Acetaminophen 325 MG Tab PO SCH ×2 (09:13→19:42)
[2017-06-11] MEDS: QUEtiapine Fumarate 200 MG TABLET PO SCH ×2 (09:14→12:51)
[2017-06-11] MEDS: Lisinopril 10 MG Tab PO SCH (09:14)
[2017-06-11] MEDS: Sodium Chloride 0.9% 10 ML Syringe FLUSH SCH ×2 (09:17→19:42)
[2017-06-11] MEDS: Insulin Detemir 100 Units/ML 3 ML Pen SUBCUT SCH (09:18)
--- NOTE | 2017-06-11 14:54 | PCM.SN ---
- Free Text/Narrative Note: Discussion and plan of care with Care coordinater/pediatric social worker and with Guardian and family. Decision in the best interests of the patient for comfort care measures. Ordered today.
[2017-06-11] MEDS: LORazepam 2 MG/ML MDV IVPUSH PRN (19:02)
[2017-06-11] MEDS ORDERED: QUEtiapine Fumarate 200 MG TABLET PO ONE (19:30)
[2017-06-11] MEDS: Citalopram 20 MG Tab PO SCH (19:42)
[2017-06-12] MEDS: QUEtiapine Fumarate 200 MG TABLET PO SCH ×2 (07:30→12:03)
[2017-06-12] MEDS: Acetaminophen/HYDROcodone 325-5 MG Tab PO PRN ×2 (07:30→10:27)
[2017-06-12] MEDS: Acetaminophen 325 MG Tab PO SCH ×2 (07:31→19:30)
[2017-06-12] MEDS: Sodium Chloride 0.9% 10 ML Syringe FLUSH SCH ×2 (08:00→19:31)
[2017-06-12] MEDS: LORazepam 2 MG/ML MDV IVPUSH PRN ×2 (13:17→19:29)
[2017-06-12] MEDS: Morphine 2 MG/ML Syringe IVPUSH PRN ×2 (17:40→19:28)
[2017-06-12] MEDS ORDERED: QUEtiapine Fumarate 200 MG TABLET PO ONE (19:21)
[2017-06-12] MEDS: Citalopram 20 MG Tab PO SCH (19:30)
[2017-06-12] MEDS: Erythromycin Base 0.5% Ophth Oint 3.5 GM Tube EYERT SCH (19:31)
[2017-06-13] MEDS: Morphine 2 MG/ML Syringe IVPUSH PRN ×2 (01:18→20:49)
[2017-06-13] MEDS: LORazepam 2 MG/ML MDV IVPUSH PRN ×3 (01:20→20:45)
[2017-06-13] MEDS: QUEtiapine Fumarate 200 MG TABLET PO SCH ×2 (08:14→14:25)
[2017-06-13] MEDS: Acetaminophen 325 MG Tab PO SCH ×2 (08:17→21:30)
[2017-06-13] MEDS: Sodium Chloride 0.9% 10 ML Syringe FLUSH SCH ×2 (09:11→21:30)
[2017-06-13] MEDS: fentaNYL 25 MCG/HR Transdermal Patch TRDERM SCH (09:11)
[2017-06-13] MEDS: Erythromycin Base 0.5% Ophth Oint 3.5 GM Tube EYERT SCH (21:30)
[2017-06-13] MEDS: Citalopram 20 MG Tab PO SCH (21:30)
[2017-06-14] MEDS: LORazepam 2 MG/ML MDV IVPUSH PRN ×2 (00:02→20:38)
[2017-06-14] MEDS: Morphine 2 MG/ML Syringe IVPUSH PRN ×3 (00:02→20:40)
[2017-06-14] MEDS: QUEtiapine Fumarate 200 MG TABLET PO SCH ×2 (07:44→10:56)
[2017-06-14] MEDS: Acetaminophen 325 MG Tab PO SCH ×2 (07:47→20:30)
[2017-06-14] MEDS: Sodium Chloride 0.9% 10 ML Syringe FLUSH SCH ×2 (10:56→20:45)
[2017-06-14] MEDS ORDERED: QUEtiapine Fumarate 200 MG TABLET PO ONE (20:18)
[2017-06-14] MEDS: Citalopram 20 MG Tab PO SCH (20:30)
[2017-06-14] MEDS: Acetaminophen/HYDROcodone 325-5 MG Tab PO PRN (20:30)
[2017-06-14] MEDS: Erythromycin Base 0.5% Ophth Oint 3.5 GM Tube EYERT SCH (21:10)
[2017-06-15] MEDS: LORazepam 2 MG/ML MDV IVPUSH PRN ×2 (03:00→19:14)
[2017-06-15] MEDS: Morphine 2 MG/ML Syringe IVPUSH PRN ×2 (03:00→19:13)
[2017-06-15] MEDS: Acetaminophen/HYDROcodone 325-5 MG Tab PO PRN ×3 (07:52→19:15)
[2017-06-15] MEDS: Acetaminophen 325 MG Tab PO SCH ×2 (07:52→19:15)
[2017-06-15] MEDS: QUEtiapine Fumarate 200 MG TABLET PO SCH ×2 (07:52→11:27)
[2017-06-15] MEDS: Sodium Chloride 0.9% 10 ML Syringe FLUSH SCH ×2 (08:00→19:18)
--- NOTE | 2017-06-15 15:39 | PCM.PN ---
- General Info Date of Service: 06/15/17 Subjective Update: Patient continues to rest comfortably in bed. He does response to touch at times and will get up to eat in the morning a few bites but has difficulty swallowing at times and does have occasional cough when eating. His diet has been adjusted to pureed. Patient does lie in bed most of the day but does have continued monitoring and turning as needed but he does shift and turn himself frequently. - Review of Systems General: Reports: Weakness, Other (unable to obtain) - Patient Data Vitals - Most Recent: Last Vital Signs Temp 36.2 C 06/15/17 07:40 Pulse 70 06/15/17 07:40 Resp 20 06/15/17 07:40 BP 119/70 06/15/17 07:40 Pulse Ox 96 06/15/17 07:40 Weight - Most Recent: 60.237 kg Med Orders - Current: Current Medications Acetaminophen (Tylenol) 650 mg PO BID [facility] Last Admin: 06/15/17 07:52 Dose: 650 mg Hydrocodone Bitart/Acetaminophen ([place] 325-5 Mg) 1 tab PO Q4H PRN PRN Reason: Pain (moderate 4-6) Last Admin: 06/15/17 13:08 Dose: 1 tab Bisacodyl (Dulcolax) 10 mg RECTAL DAILY PRN PRN Reason: Constipation Last Admin: 06/11/17 09:13 Dose: 10 mg Citalopram Hydrobromide (Celexa) 20 mg PO BEDTIME [facility] Last Admin: 06/14/17 20:30 Dose: 20 mg Docusate Sodium (Colace) 100 mg PO BID PRN PRN Reason: constipation Last Admin: 05/20/17 19:45 Dose: 100 mg Erythromycin (Erythromycin 0.5% Ophth Oint) 0 gm EYERT BEDTIME [facility] Last Admin: 06/14/17 21:10 Dose: Not Given Fentanyl (Duragesic) 25 mcg TRDERM Q72H [facility] Last Admin: 06/13/17 09:11 Dose: 25 mcg Lorazepam (Ativan) 0.5 mg PO Q8H PRN PRN Reason: Anxiety Last Admin: 06/10/17 16:34 Dose: 0.5 mg Lorazepam (Ativan) 1 mg IVPUSH Q4H PRN PRN Reason: Anxiety Last Admin: 06/15/17 03:00 Dose: 1 mg Miscellaneous Information (Remove Patch) 1 ea TRDERM ASDIRECTED [facility] Morphine Sulfate (Morphine) 2 mg IVPUSH Q2H PRN PRN Reason: Pain (severe 7-10) Last Admin: 06/15/17 03:00 Dose: 2 mg Metronidazole 0.75% (Cream) 1 applic TOP DAILY [facility] Last Admin: 06/15/17 08:00 Dose: 1 applic Quetiapine Fumarate (Quetiapine Fumarate) 200 mg PO DAILY@0700,1100 [facility] Last Admin: 06/15/17 11:27 Dose: 200 mg Quetiapine Fumarate (Seroquel) 50 mg PO DAILY@0700,1100 [facility] Last Admin: 06/15/17 11:27 Dose: 50 mg Quetiapine Fumarate (Seroquel) 400 mg PO BEDTIME [facility] Last Admin: 06/14/17 20:30 Dose: 400 mg Quetiapine Fumarate (Seroquel) 50 mg PO BEDTIME [facility] Last Admin: 06/14/17 20:30 Dose: 50 mg Senna/Docusate Sodium (Senna Plus) 1 tab PO BID [facility] Last Admin: 06/15/17 07:52 Dose: 1 tab Sodium Biphosphate/Sodium Phosphate (Fleet Enema) 133 ml RECTAL ASDIRECTED PRN PRN Reason: Constipation Last Admin: 06/11/17 03:12 Dose: 133 ml Sodium Chloride (Saline Flush) 10 ml FLUSH BID [facility] Last Admin: 06/15/17 08:00 Dose: 10 ml Discontinued Medications Acetaminophen (Tylenol) Confirm Administered Dose 325 mg .ROUTE .STK-MED ONE Stop: 05/19/17 08:14 Last Admin: 05/19/17 08:28 Dose: 325 mg Hydrocodone Bitart/Acetaminophen ([place] 325-5 Mg) 0.5 tab PO Q4H PRN PRN Reason: Pain (moderate 4-6) Last Admin: 05/04/17 13:51 Dose: 0.5 tab Hydrocodone Bitart/Acetaminophen ([place] 325-5 Mg) Confirm Administered Dose 1 tab .ROUTE .STK-MED ONE Stop: 05/18/17 19:40 Last Admin: 05/18/17 21:39 Dose: Not Given Calamine/Phenol (Calmoseptine) 113 gm TOP .STK-MED ONE Stop: 05/17/17 08:01 Calcitonin [place] (Miacalcin Nasal [place]) 0 ml MIKY DAILY [facility] Last Admin: 05/04/17 08:14 Dose: 1 spray Calcitonin [place] (Miacalcin Nasal [place]) 3.7 ml MIKY DAILY [facility] Last Admin: 06/11/17 09:12 Dose: 1 spray Ciprofloxacin (Ciprofloxacin Hcl) 500 mg PO BID [facility] Last Admin: 05/19/17 08:31 Dose: 500 mg Ciprofloxacin (Ciprofloxacin Hcl) Confirm Administered Dose 500 mg .ROUTE .STK- MED ONE Stop: 05/10/17 23:06 Last Admin: 05/10/17 23:12 Dose: 500 mg Fentanyl (Duragesic) 12 mcg TRDERM Q72H [facility] Stop: 06/04/17 08:00 Last Admin: 06/03/17 19:50 Dose: 12 mcg Fentanyl (Duragesic) Confirm Administered Dose 12 mcg .ROUTE .STK-MED ONE Stop: 05/25/17 17:03 Last Admin: 05/25/17 18:33 Dose: Not Given Haloperidol Lactate (Haldol) Confirm Administered Dose 5 mg .ROUTE .STK-MED ONE Stop: 05/01/17 21:31 Last Admin: 05/02/17 03:32 Dose: Not Given Haloperidol Lactate (Haldol) 5 mg IVPUSH ONETIME ONE Stop: 05/01/17 21:01 Last Admin: 05/02/17 02:30 Dose: 2.5 mg Haloperidol Lactate (Haldol) 5 mg IVPUSH ONETIME ONE Stop: 05/06/17 21:26 Last Admin: 05/07/17 06:51 Dose: Not Given Sodium Chloride (Normal Saline) 1,000 mls @ 125 mls/hr IV ASDIRECTED [facility] Last Admin: 05/01/17 10:50 Dose: 125 mls/hr Dextrose/Sodium Chloride (Dextrose 5%-1/2 Ns) 1,000 mls @ 125 mls/hr IV ASDIRECTED [facility] Stop: 05/03/17 00:09 Last Admin: 05/01/17 21:30 Dose: 125 mls/hr Lactated Ringer's (Ringers, Lactated) 1,000 mls @ 250 mls/hr IV ASDIRECTED [facility] Lactated Ringer's (Ringers, Lactated) 1,000 mls @ 200 mls/hr IV ASDIRECTED [facility] Dextrose/Sodium Chloride (Dextrose 5%-1/2 Ns) 1,000 mls @ 150 mls/hr IV ASDIRECTED [facility] Last Admin: 06/05/17 00:22 Dose: 150 mls/hr Insulin Detemir (Levemir) 5 unit SUBCUT BEDTIME [facility] Last Admin: 06/03/17 19:48 Dose: 5 units Insulin Detemir (Levemir) 3 unit SUBCUT Q12HR [facility] Last Admin: 06/11/17 09:18 Dose: 3 unit Lisinopril (Prinivil) 10 mg PO DAILY [facility] Last Admin: 06/11/17 09:14 Dose: 10 mg Lorazepam (Ativan) Confirm Administered Dose 2 mg .ROUTE .STK-MED ONE Stop: 05/01/17 21:31 Last Admin: 05/02/17 03:32 Dose: Not Given Lorazepam (Ativan) 2 mg IVPUSH ONETIME ONE Stop: 05/01/17 21:01 Last Admin: 05/02/17 02:35 Dose: 1 mg Lorazepam (Ativan) Confirm Administered Dose 2 mg .ROUTE .STK-MED ONE Stop: 05/05/17 15:27 Last Admin: 05/05/17 17:48 Dose: Not Given Lorazepam (Ativan) 2 mg IVPUSH ONETIME ONE Stop: 05/05/17 15:50 Last Admin: 05/05/17 15:40 Dose: 2 mg Lorazepam (Ativan) Confirm Administered Dose 2 mg .ROUTE .STK-MED ONE Stop: 05/10/17 19:09 Last Admin: 05/10/17 19:10 Dose: 2 mg Magnesium Hydroxide (Milk Of Magnesia) Confirm Administered Dose 30 ml .ROUTE .STK-MED ONE Stop: 05/16/17 10:03 Last Admin: 05/16/17 08:30 Dose: 30 ml Magnesium Hydroxide (Milk Of Magnesia) Confirm Administered Dose 30 ml .ROUTE .STK-MED ONE Stop: 05/27/17 22:46 Last Admin: 05/28/17 06:25 Dose: 30 ml Metformin HCl (Glucophage) 250 mg PO BID [facility] Last Admin: 05/09/17 21:03 Dose: Not Given Metformin HCl (Glucophage) 250 mg PO BIDMEALS [facility] Last Admin: 06/02/17 08:49 Dose: 250 mg Non-Formulary Medication (Quetiapine [Seroquel Xr]) 1 tab PO ACLUNCH [facility] Quetiapine Fumarate (Seroquel) 200 mg PO BID@0700,1100 [facility] Last Admin: 05/03/17 07:32 Dose: Not Given Quetiapine Fumarate (Seroquel) 450 mg PO DAILY@2000 [facility] Last Admin: 05/28/17 20:05 Dose: 400 mg Quetiapine Fumarate (Seroquel) 200 mg PO DAILY@0700,1100 [facility] Last Admin: 05/10/17 21:46 Dose: Not Given Quetiapine Fumarate (Seroquel) 400 mg PO BEDTIME [facility] Last Admin: 05/10/17 19:19 Dose: 400 mg Quetiapine Fumarate (Seroquel) 50 mg PO BEDTIME [facility] Last Admin: 05/10/17 20:41 Dose: 50 mg Quetiapine Fumarate (Seroquel) Confirm Administered Dose 400 mg .ROUTE .ST[employer]Face IT-MED ONE Stop: 05/03/17 19:38 Last Admin: 05/04/17 00:57 Dose: Not Given Quetiapine Fumarate (Seroquel) Confirm Administered Dose 200 mg .ROUTE .ST[employer]Face IT-MED ONE Stop: 05/10/17 08:02 Last Admin: 05/10/17 20:41 Dose: Not Given Quetiapine Fumarate (Seroquel) 250 mg PO 0700,1100 [facility] Last Admin: 05/12/17 06:43 Dose: 250 mg Quetiapine Fumarate (Seroquel) 450 mg PO BEDTIME [facility] Last Admin: 05/26/17 19:49 Dose: 450 mg Quetiapine Fumarate (Seroquel) Confirm Administered Dose 50 mg .ROUTE .ST[employer]Face IT-MED ONE Stop: 05/11/17 06:54 Last Admin: 05/11/17 11:55 Dose: Not Given Quetiapine Fumarate (Seroquel) 200 mg PO DAILY@0700,1100 [facility] Last Admin: 05/27/17 08:03 Dose: 200 mg Quetiapine Fumarate (Seroquel) 50 mg PO DAILY@0700,1100 [facility] Last Admin: 05/27/17 08:03 Dose: 50 mg Quetiapine Fumarate (Seroquel) Confirm Administered Dose 50 mg .ROUTE .ST[employer]Face IT-MED ONE Stop: 05/14/17 13:32 Last Admin: 05/14/17 13:35 Dose: Not Given Quetiapine Fumarate (Seroquel) Confirm Administered Dose 50 mg .ROUTE .STK-MED ONE Stop: 05/20/17 19:39 Last Admin: 05/20/17 21:26 Dose: 50 mg Quetiapine Fumarate (Seroquel) Confirm Administered Dose 50 mg .ROUTE .STK-MED ONE Stop: 05/22/17 19:54 Last Admin: 05/22/17 21:02 Dose: Not Given Quetiapine Fumarate (Seroquel) Confirm Administered Dose 50 mg .ROUTE .STK-MED ONE Stop: 05/24/17 19:28 Last Admin: 05/24/17 19:41 Dose: Not Given Quetiapine Fumarate (Seroquel) Confirm Administered Dose 50 mg .ROUTE .STK-MED ONE Stop: 05/25/17 20:09 Last Admin: 05/25/17 20:39 Dose: Not Given Quetiapine Fumarate (Seroquel) Confirm Administered Dose 50 mg .ROUTE .STK-MED ONE Stop: 05/26/17 18:48 Last Admin: 05/26/17 19:42 Dose: Not Given Quetiapine Fumarate (Quetiapine Fumarate) Confirm Administered Dose 400 mg PO .STK-MED ONE Stop: 05/26/17 19:37 Last Admin: 05/26/17 19:43 Dose: Not Given Quetiapine Fumarate (Quetiapine Fumarate) Confirm Administered Dose 400 mg PO .STK-MED ONE Stop: 05/27/17 19:18 Last Admin: 05/27/17 19:28 Dose: Not Given Quetiapine Fumarate (Quetiapine Fumarate) Confirm Administered Dose 400 mg PO .STK-MED ONE Stop: 06/01/17 19:29 Last Admin: 06/01/17 19:54 Dose: Not Given Quetiapine Fumarate (Quetiapine Fumarate) Confirm Administered Dose 400 mg PO .STK-MED ONE Stop: 06/02/17 19:47 Last Admin: 06/02/17 20:02 Dose: Not Given Quetiapine Fumarate (Quetiapine Fumarate) Confirm Administered Dose 400 mg PO .STK-MED ONE Stop: 06/03/17 19:38 Last Admin: 06/03/17 19:47 Dose: Not Given Quetiapine Fumarate (Quetiapine Fumarate) Confirm Administered Dose 400 mg PO .STK-MED ONE Stop: 06/04/17 20:38 Last Admin: 06/04/17 23:12 Dose: Not Given Quetiapine Fumarate (Quetiapine Fumarate) Confirm Administered Dose 400 mg PO .STK-MED ONE Stop: 06/05/17 19:39 Last Admin: 06/05/17 20:45 Dose: Not Given Quetiapine Fumarate (Quetiapine Fumarate) Confirm Administered Dose 400 mg PO .STK-MED ONE Stop: 06/06/17 19:30 Last Admin: 06/06/17 20:36 Dose: Not Given Quetiapine Fumarate (Seroquel) Confirm Administered Dose 50 mg .ROUTE .STK-MED ONE Stop: 06/07/17 19:07 Last Admin: 06/07/17 21:33 Dose: Not Given Quetiapine Fumarate (Quetiapine Fumarate) Confirm Administered Dose 400 mg PO .STK-MED ONE Stop: 06/07/17 19:07 Last Admin: 06/07/17 21:32 Dose: Not Given Quetiapine Fumarate (Seroquel) Confirm Administered Dose 50 mg .ROUTE .STDesignFace IT-MED ONE Stop: 06/08/17 06:00 Last Admin: 06/08/17 06:12 Dose: Not Given Quetiapine Fumarate (Seroquel) Confirm Administered Dose 50 mg .ROUTE .[employer]-MED ONE Stop: 06/08/17 10:15 Last Admin: 06/08/17 10:18 Dose: Not Given Quetiapine Fumarate (Quetiapine Fumarate) Confirm Administered Dose 400 mg PO .STDesignFace IT-MED ONE Stop: 06/08/17 19:00 Last Admin: 06/08/17 19:32 Dose: Not Given Quetiapine Fumarate (Quetiapine Fumarate) Confirm Administered Dose 400 mg PO .STK-MED ONE Stop: 06/09/17 21:28 Last Admin: 06/09/17 21:57 Dose: Not Given Quetiapine Fumarate (Quetiapine Fumarate) Confirm Administered Dose 400 mg PO .STK-MED ONE Stop: 06/10/17 19:36 Last Admin: 06/10/17 19:39 Dose: Not Given Quetiapine Fumarate (Quetiapine Fumarate) Confirm Administered Dose 400 mg PO .STK-MED ONE Stop: 06/11/17 19:31 Last Admin: 06/11/17 19:43 Dose: Not Given Quetiapine Fumarate (Quetiapine Fumarate) Confirm Administered Dose 400 mg PO .STK-MED ONE Stop: 06/12/17 19:22 Last Admin: 06/12/17 19:31 Dose: Not Given Quetiapine Fumarate (Quetiapine Fumarate) Confirm Administered Dose 400 mg PO .STK-MED ONE Stop: 06/14/17 20:19 Last Admin: 06/14/17 21:11 Dose: Not Given Trimethoprim/Sulfamethoxazole (Septra Ds) 1 tab PO BID [facility] Stop: 06/03/17 23:59 Last Admin: 06/03/17 19:47 Dose: 1 tab Tuberculin PPD (Aplisol) 5 unit IDERM ONETIME ONE Stop: 04/30/17 16:28 - Exam General: Obtunded HEENT: Pupils Equal, Pupils Reactive Lungs: Decreased Breath Sounds, Rales Cardiovascular: Regular Rate, Regular Rhythm GI/Abdominal Exam: Abnormal Bowel Sounds (slow bowel sounds) Back Exam: Normal Inspection Extremities: Normal Inspection Peripheral Pulses: 2+: Dorsalis Pedis (L), Dorsalis Pedis (R) Skin: Warm, Dry, Intact Neurological: No New Focal Deficit Psy/Mental Status: Labile Mood, Hallucinations - Problem List & Annotations (1) Subdural hemorrhage following injury SNOMED Code(s): 362638030 Code(s): S06.5X9A - TRAUM SUBDR HEM W LOC OF UNSP DURATION, INIT Status: Chronic Priority: High Current Visit: Yes Qualifiers: Encounter type: subsequent encounter Loss of consciousness presence/ duration: without LOC Qualified Code(s): S06.5X0D - Traumatic subdural hemorrhage without loss of consciousness, subsequent encounter (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 Code(s): F03.91 - UNSPECIFIED DEMENTIA WITH BEHAVIORAL DISTURBANCE Status: Chronic Priority: High Current Visit: Yes Qualifiers: Dementia behavioral disturbance: with behavioral disturbance Qualified Code (s): F02.81 - Dementia in other diseases classified elsewhere with behavioral disturbance (3) Paranoid schizophrenia, chronic condition SNOMED Code(s): 59273259 Code(s): F20.0 - PARANOID SCHIZOPHRENIA Status: Chronic Priority: High Current Visit: Yes (4) Diabetes mellitus SNOMED Code(s): 50962900 Code(s): E11.9 - TYPE 2 DIABETES MELLITUS WITHOUT COMPLICATIONS Status: Chronic Priority: Medium Current Visit: Yes Qualifiers: Diabetes mellitus type: type 2 Diabetes mellitus complication status: with hyperglycemia Diabetes mellitus shelter insulin use: without shelter use Qualified Code(s): E11.65 - Type 2 diabetes mellitus with hyperglycemia (5) Neurogenic bladder SNOMED Code(s): 332127212 Code(s): N31.9 - NEUROMUSCULAR DYSFUNCTION OF BLADDER, UNSPECIFIED Status: Acute Current Visit: Yes (6) Palliative care patient SNOMED Code(s): 499066919 Code(s): Z51.5 - ENCOUNTER FOR PALLIATIVE CARE Status: Acute Priority: High Current Visit: Yes (7) Comfort measures only status SNOMED Code(s): 34452522851536 Code(s): Z51.5 - ENCOUNTER FOR PALLIATIVE CARE Status: Acute Priority: High Current Visit: Yes - Problem List Review Problem List Initiated/Reviewed/Updated: Yes - Assessment Assessment:: Fever - Plan Plan:: Pt admit to swing bed for adjustment of psych. medications, pain management, constipation, overflow incontinence, strengthening, and decrease in intake. Dementia and adjustment of psych medications: Administer medications as pt tolerates, May crush and give in soft foods. With periods of agitation, start Ativan 0.5 mg tid as needed to keep pt comfortable and resting. Pain Management: Assess and treat headache and neck pain. Medications ordered for mild, moderate, and severe pain. Constipation: Rectal suppository or enema every 2-3 days as needed. Overflow incontinence: Carpio catheter to bedside drainage. weakness: PT/OT continue to offer strengthening/evaluation as pt has more periods of being alert/awake. decreased oral intake: IVD'cd Mechanical soft diet as tolerated, when alert. Diabetes with hyperglycemia: Monitor blood sugars. Offer Metformin when alert and able to swallow medication. 05/06/17 Agree with above 1 Subdural hematoma: Ct head repeated on 05/05/17 shows slight increase in the size of the right subdural hematoma maira 10-13mm and also there is a small fluid collection over the left side about 7mm which is new.Pt does seem to be clinically improving and presently is off Iv fluids and tolerating oral diet. I did call , Neurosurgeon self contained behavior unit teacher. 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 reassured that happen some time. He did recommend to repeat Ct head in 1 month time from time of injury to make sure the hematoma is resolving( as patient has schizophrenia and is hard to monitor his neurologic status). 2) Neurogenic bladder: Pt has had chronic urinary retention for more than a month. He has been on carpio catheter for urinary drainage. Apparently Pt has not had successful clamping and drainage and her does not void well when off catheter. I have discussed patient with the urologistat [facility]. Dr capellan does agree with this being neurogenic bladder issue , which will cause intermittent retention overflow. Considering his severe schizophrenia and age, Dr. Capellan's recommendation has been to try straight catheterizing this patient as needed. But patient in the past gets agitated when he needs cauterization, but once catheter is in place he does keep the carpio in place. does recommend continuos cauterization, as there is not much option available considering his co-morbid conditions,. Also the cholinergic effect of the antipsychotics he is on can make his neurogenic bladder and urinary retention worse. Per Dr Capellan's recommendation will try keeping patient on continuous cauterization weight the risks and benefits. 05/10/17 Pt is running low grade fever just now, with his dementia and schizophrenia, hard to take any history from patient. No change in status. Clinical exam of patient is normal. refusing tylenol. Will get workup with CBC , UA and chest xray and followup with result. His CBC and Chest xray are normal. UA has not been done. This could be transient elevation of the temperature. Will monitor him closely. If he continues to spike will work it up. 05/20/[address] Thrasher on management of patient. We are in contact with family and Guardian and consensus to keep comfortable and continue current cares and management for agitation as needed and daily cares. Patient does appear to have improved agitation with increased Seroquel dosing. 05/25/17 Patient plan to continue current medications and continue meals as tolerated. Nursing staff have been at bedside feeding patient for meals. Patient has gotten up with PT/OT but only walked a few steps with assistance. He remains in bed most of the day. We will continue to monitor for sore formation and try frequent up to chair and feedings. Patient does respond to feeding and does eat little amounts and does state he is full. Continued f/u with Dr. Thrasher. F/u CT as scheduled in a few weeks. No further changes. 06/15/17 We are continuing comfort cares and monitoring. Patient does eat a few spoonfuls of pureed food at a time. He does appear weaker and more obtund. Continue all comfort care orders and will adjust as needed.
[2017-06-15] MEDS ORDERED: QUEtiapine Fumarate 200 MG TABLET PO ONE (19:11)
[2017-06-15] MEDS: Citalopram 20 MG Tab PO SCH (19:15)
[2017-06-15] MEDS: Erythromycin Base 0.5% Ophth Oint 3.5 GM Tube EYERT SCH (19:18)
[2017-06-16] MEDS: QUEtiapine Fumarate 200 MG TABLET PO SCH ×2 (07:17→13:59)
[2017-06-16] MEDS: Acetaminophen 325 MG Tab PO SCH ×2 (07:17→20:46)
[2017-06-16] MEDS: fentaNYL 25 MCG/HR Transdermal Patch TRDERM SCH (07:22)
[2017-06-16] MEDS: Sodium Chloride 0.9% 10 ML Syringe FLUSH SCH ×2 (07:29→20:47)
[2017-06-16] MEDS: Morphine 2 MG/ML Syringe IVPUSH PRN ×2 (10:05→20:45)
[2017-06-16] MEDS ORDERED: QUEtiapine Fumarate 200 MG TABLET PO ONE (20:26)
[2017-06-16] MEDS: LORazepam 2 MG/ML MDV IVPUSH PRN (20:44)
[2017-06-16] MEDS: Citalopram 20 MG Tab PO SCH (20:45)
[2017-06-16] MEDS: Acetaminophen/HYDROcodone 325-5 MG Tab PO PRN (20:46)
[2017-06-16] MEDS: Erythromycin Base 0.5% Ophth Oint 3.5 GM Tube EYERT SCH (20:46)
[2017-06-17] MEDS: LORazepam 2 MG/ML MDV IVPUSH PRN (03:00)
[2017-06-17] MEDS: Morphine 2 MG/ML Syringe IVPUSH PRN (03:00)
[2017-06-17] MEDS: QUEtiapine Fumarate 200 MG TABLET PO SCH ×3 (08:23→12:19)
[2017-06-17] MEDS: Sodium Chloride 0.9% 10 ML Syringe FLUSH SCH ×2 (08:53→20:00)
[2017-06-17] MEDS: Acetaminophen 325 MG Tab PO SCH ×2 (12:16→19:34)
[2017-06-17] MEDS ORDERED: QUEtiapine Fumarate 200 MG TABLET PO ONE (19:29)
[2017-06-17] MEDS: Acetaminophen/HYDROcodone 325-5 MG Tab PO PRN (19:33)
[2017-06-17] MEDS: Citalopram 20 MG Tab PO SCH (19:34)
[2017-06-17] MEDS: Erythromycin Base 0.5% Ophth Oint 3.5 GM Tube EYERT SCH (19:35)
[2017-06-18] MEDS: LORazepam 2 MG/ML MDV IVPUSH PRN (01:13)
[2017-06-18] MEDS: Morphine 2 MG/ML Syringe IVPUSH PRN (02:54)
[2017-06-18] MEDS: QUEtiapine Fumarate 200 MG TABLET PO SCH ×2 (08:25→16:04)
[2017-06-18] MEDS: LORazepam 0.5 MG Tab PO PRN (08:25)
[2017-06-18] MEDS: Acetaminophen/HYDROcodone 325-5 MG Tab PO PRN ×2 (08:26→20:24)
[2017-06-18] MEDS: Acetaminophen 325 MG Tab PO SCH ×2 (08:28→20:21)
[2017-06-18] MEDS: Sodium Chloride 0.9% 10 ML Syringe FLUSH SCH ×2 (08:28→20:22)
[2017-06-18] MEDS: Erythromycin Base 0.5% Ophth Oint 3.5 GM Tube EYERT SCH (20:19)
[2017-06-18] MEDS: Citalopram 20 MG Tab PO SCH (20:22)
[2017-06-19] MEDS: Morphine 2 MG/ML Syringe IVPUSH PRN (04:16)
[2017-06-19] MEDS: QUEtiapine Fumarate 200 MG TABLET PO SCH ×2 (06:18→11:00)
[2017-06-19] MEDS: Acetaminophen 325 MG Tab PO SCH ×2 (10:59→19:45)
[2017-06-19] MEDS: Sodium Chloride 0.9% 10 ML Syringe FLUSH SCH ×2 (11:06→19:47)
[2017-06-19] MEDS: fentaNYL 25 MCG/HR Transdermal Patch TRDERM SCH (11:06)
[2017-06-19] MEDS: Citalopram 20 MG Tab PO SCH (19:44)
[2017-06-19] MEDS: Erythromycin Base 0.5% Ophth Oint 3.5 GM Tube EYERT SCH (19:46)
[2017-06-19] MEDS: LORazepam 2 MG/ML MDV IVPUSH PRN (20:52)
[2017-06-20] MEDS: QUEtiapine Fumarate 200 MG TABLET PO SCH ×3 (07:50→12:31)
[2017-06-20] MEDS: Acetaminophen 325 MG Tab PO SCH ×2 (07:51→20:08)
[2017-06-20] MEDS: Sodium Chloride 0.9% 10 ML Syringe FLUSH SCH ×2 (07:52→20:08)
[2017-06-20] MEDS: LORazepam 0.5 MG Tab PO PRN (11:03)
[2017-06-20] MEDS: Acetaminophen/HYDROcodone 325-5 MG Tab PO PRN (11:04)
[2017-06-20] MEDS ORDERED: QUEtiapine Fumarate 200 MG TABLET PO ONE (19:55)
[2017-06-20] MEDS: Citalopram 20 MG Tab PO SCH (20:10)
[2017-06-20] MEDS: Erythromycin Base 0.5% Ophth Oint 3.5 GM Tube EYERT SCH (20:11)
[2017-06-21] MEDS: Acetaminophen 325 MG Tab PO SCH ×2 (07:51→19:45)
[2017-06-21] MEDS: QUEtiapine Fumarate 200 MG TABLET PO SCH ×3 (07:51→11:58)
[2017-06-21] MEDS: Sodium Chloride 0.9% 10 ML Syringe FLUSH SCH ×3 (07:53→19:45)
[2017-06-21] MEDS: LORazepam 0.5 MG Tab PO PRN ×2 (11:59→21:16)
[2017-06-21] MEDS ORDERED: QUEtiapine Fumarate 200 MG TABLET PO ONE (19:38)
[2017-06-21] MEDS: Citalopram 20 MG Tab PO SCH (19:43)
[2017-06-21] MEDS: Acetaminophen/HYDROcodone 325-5 MG Tab PO PRN (19:43)
[2017-06-21] MEDS: Erythromycin Base 0.5% Ophth Oint 3.5 GM Tube EYERT SCH (19:45)
[2017-06-22] MEDS: Acetaminophen 325 MG Tab PO SCH ×2 (08:26→22:59)
[2017-06-22] MEDS: QUEtiapine Fumarate 200 MG TABLET PO SCH ×2 (08:28→12:35)
[2017-06-22] MEDS: Sodium Chloride 0.9% 10 ML Syringe FLUSH SCH ×2 (08:31→22:57)
[2017-06-22] MEDS: fentaNYL 25 MCG/HR Transdermal Patch TRDERM SCH (08:35)
--- NOTE | 2017-06-22 11:27 | PCM.PN ---
- General Info Date of Service: 06/22/17 Functional Status: Reports: Pain Controlled, Tolerating Diet - Review of Systems General: Reports: Weakness, Other (Unable to obtain ROS, patient does appear to deny pain or discomfort and response to interaction and eating and drinking.) - Patient Data Vitals - Most Recent: Last Vital Signs Temp 36.1 C 06/21/17 08:10 Pulse 73 06/21/17 08:10 Resp 14 06/21/17 08:10 BP 100/63 06/21/17 08:10 Pulse Ox 94 L 06/21/17 08:10 Weight - Most Recent: 60.237 kg I&O - Last 24 Hours: Intake & Output 06/21/17 06/22/17 06/22/17 22:59 06:59 14:59 Intake Total 240 400 Output Total 225 250 Balance 15 150 Med Orders - Current: Current Medications Acetaminophen (Tylenol) 650 mg PO BID [facility] Last Admin: 06/22/17 08:26 Dose: 650 mg Hydrocodone Bitart/Acetaminophen (Rougon 325-5 Mg) 1 tab PO Q4H PRN PRN Reason: Pain (moderate 4-6) Last Admin: 06/21/17 19:43 Dose: 1 tab Bisacodyl (Dulcolax) 10 mg RECTAL DAILY PRN PRN Reason: Constipation Last Admin: 06/11/17 09:13 Dose: 10 mg Citalopram Hydrobromide (Celexa) 20 mg PO BEDTIME [facility] Last Admin: 06/21/17 19:43 Dose: 20 mg Docusate Sodium (Colace) 100 mg PO BID PRN PRN Reason: constipation Last Admin: 05/20/17 19:45 Dose: 100 mg Erythromycin (Erythromycin 0.5% Ophth Oint) 0 gm EYERT BEDTIME [facility] Last Admin: 06/21/17 19:45 Dose: 1 drop Fentanyl (Duragesic) 25 mcg TRDERM Q72H [facility] Last Admin: 06/22/17 08:35 Dose: 25 mcg Lorazepam (Ativan) 0.5 mg PO Q8H PRN PRN Reason: Anxiety Last Admin: 06/21/17 21:16 Dose: 0.5 mg Lorazepam (Ativan) 1 mg IVPUSH Q4H PRN PRN Reason: Anxiety Last Admin: 06/19/17 20:52 Dose: 1 mg Miscellaneous Information (Remove Patch) 1 ea TRDERM ASDIRECTED [facility] Last Admin: 06/22/17 08:37 Dose: 1 ea Morphine Sulfate (Morphine) 2 mg IVPUSH Q2H PRN PRN Reason: Pain (severe 7-10) Last Admin: 06/19/17 04:16 Dose: 2 mg Metronidazole 0.75% (Cream) 1 applic TOP DAILY [facility] Last Admin: 06/22/17 08:29 Dose: 1 applic Quetiapine Fumarate (Seroquel) 400 mg PO BEDTIME [facility] Last Admin: 06/21/17 19:44 Dose: 400 mg Quetiapine Fumarate (Seroquel) 50 mg PO BEDTIME [facility] Last Admin: 06/21/17 19:44 Dose: 50 mg Quetiapine Fumarate (Quetiapine Fumarate) 200 mg PO DAILY@0800,1200 [facility] Last Admin: 06/22/17 08:28 Dose: 200 mg Quetiapine Fumarate (Seroquel) 50 mg PO DAILY@0800,1200 [facility] Last Admin: 06/22/17 08:31 Dose: 50 mg Senna/Docusate Sodium (Senna Plus) 1 tab PO BID [facility] Last Admin: 06/22/17 08:28 Dose: 1 tab Sodium Biphosphate/Sodium Phosphate (Fleet Enema) 133 ml RECTAL ASDIRECTED PRN PRN Reason: Constipation Last Admin: 06/11/17 03:12 Dose: 133 ml Sodium Chloride (Saline Flush) 10 ml FLUSH BID [facility] Last Admin: 06/22/17 08:31 Dose: Not Given Discontinued Medications Acetaminophen (Tylenol) Confirm Administered Dose 325 mg .ROUTE .STK-MED ONE Stop: 05/19/17 08:14 Last Admin: 05/19/17 08:28 Dose: 325 mg Hydrocodone Bitart/Acetaminophen (Rougon 325-5 Mg) 0.5 tab PO Q4H PRN PRN Reason: Pain (moderate 4-6) Last Admin: 05/04/17 13:51 Dose: 0.5 tab Hydrocodone Bitart/Acetaminophen (Rougon 325-5 Mg) Confirm Administered Dose 1 tab .ROUTE .STK-MED ONE Stop: 05/18/17 19:40 Last Admin: 05/18/17 21:39 Dose: Not Given Calamine/Phenol (Calmoseptine) 113 gm TOP .STK-MED ONE Stop: 05/17/17 08:01 Calcitonin [place] (Miacalcin Nasal [place]) 0 ml MIKY DAILY [facility] Last Admin: 05/04/17 08:14 Dose: 1 spray Calcitonin [place] (Miacalcin Nasal [place]) 3.7 ml MIKY DAILY [facility] Last Admin: 06/11/17 09:12 Dose: 1 spray Ciprofloxacin (Ciprofloxacin Hcl) 500 mg PO BID [facility] Last Admin: 05/19/17 08:31 Dose: 500 mg Ciprofloxacin (Ciprofloxacin Hcl) Confirm Administered Dose 500 mg .ROUTE .STK- MED ONE Stop: 05/10/17 23:06 Last Admin: 05/10/17 23:12 Dose: 500 mg Fentanyl (Duragesic) 12 mcg TRDERM Q72H [facility] Stop: 06/04/17 08:00 Last Admin: 06/03/17 19:50 Dose: 12 mcg Fentanyl (Duragesic) Confirm Administered Dose 12 mcg .ROUTE .STK-MED ONE Stop: 05/25/17 17:03 Last Admin: 05/25/17 18:33 Dose: Not Given Haloperidol Lactate (Haldol) Confirm Administered Dose 5 mg .ROUTE .STK-MED ONE Stop: 05/01/17 21:31 Last Admin: 05/02/17 03:32 Dose: Not Given Haloperidol Lactate (Haldol) 5 mg IVPUSH ONETIME ONE Stop: 05/01/17 21:01 Last Admin: 05/02/17 02:30 Dose: 2.5 mg Haloperidol Lactate (Haldol) 5 mg IVPUSH ONETIME ONE Stop: 05/06/17 21:26 Last Admin: 05/07/17 06:51 Dose: Not Given Sodium Chloride (Normal Saline) 1,000 mls @ 125 mls/hr IV ASDIRECTED [facility] Last Admin: 05/01/17 10:50 Dose: 125 mls/hr Dextrose/Sodium Chloride (Dextrose 5%-1/2 Ns) 1,000 mls @ 125 mls/hr IV ASDIRECTED [facility] Stop: 05/03/17 00:09 Last Admin: 05/01/17 21:30 Dose: 125 mls/hr Lactated Ringer's (Ringers, Lactated) 1,000 mls @ 250 mls/hr IV ASDIRECTED [facility] Lactated Ringer's (Ringers, Lactated) 1,000 mls @ 200 mls/hr IV ASDIRECTED [facility] Dextrose/Sodium Chloride (Dextrose 5%-1/2 Ns) 1,000 mls @ 150 mls/hr IV ASDIRECTED [facility] Last Admin: 06/05/17 00:22 Dose: 150 mls/hr Insulin Detemir (Levemir) 5 unit SUBCUT BEDTIME [facility] Last Admin: 06/03/17 19:48 Dose: 5 units Insulin Detemir (Levemir) 3 unit SUBCUT Q12HR [facility] Last Admin: 06/11/17 09:18 Dose: 3 unit Lisinopril (Prinivil) 10 mg PO DAILY [facility] Last Admin: 06/11/17 09:14 Dose: 10 mg Lorazepam (Ativan) Confirm Administered Dose 2 mg .ROUTE .ST-MED ONE Stop: 05/01/17 21:31 Last Admin: 05/02/17 03:32 Dose: Not Given Lorazepam (Ativan) 2 mg IVPUSH ONETIME ONE Stop: 05/01/17 21:01 Last Admin: 05/02/17 02:35 Dose: 1 mg Lorazepam (Ativan) Confirm Administered Dose 2 mg .ROUTE .STK-MED ONE Stop: 05/05/17 15:27 Last Admin: 05/05/17 17:48 Dose: Not Given Lorazepam (Ativan) 2 mg IVPUSH ONETIME ONE Stop: 05/05/17 15:50 Last Admin: 05/05/17 15:40 Dose: 2 mg Lorazepam (Ativan) Confirm Administered Dose 2 mg .ROUTE .STK-MED ONE Stop: 05/10/17 19:09 Last Admin: 05/10/17 19:10 Dose: 2 mg Magnesium Hydroxide (Milk Of Magnesia) Confirm Administered Dose 30 ml .ROUTE .STK-MED ONE Stop: 05/16/17 10:03 Last Admin: 05/16/17 08:30 Dose: 30 ml Magnesium Hydroxide (Milk Of Magnesia) Confirm Administered Dose 30 ml .ROUTE .STK-MED ONE Stop: 05/27/17 22:46 Last Admin: 05/28/17 06:25 Dose: 30 ml Metformin HCl (Glucophage) 250 mg PO BID [facility] Last Admin: 05/09/17 21:03 Dose: Not Given [facility] Admin: 06/02/17 08:49 Dose: 250 mg Non-Formulary Medication (Quetiapine [Seroquel Xr]) 1 tab PO ACLUNCH [facility] Quetiapine Fumarate (Seroquel) 200 mg PO BID@0700,1100 [facility] Last Admin: 05/03/17 07:32 Dose: Not Given Quetiapine Fumarate (Seroquel) 450 mg PO DAILY@2000 [facility] Last Admin: 05/28/17 20:05 Dose: 400 mg Quetiapine Fumarate (Seroquel) 200 mg PO DAILY@0700,1100 [facility] Last Admin: 05/10/17 21:46 Dose: Not Given Quetiapine Fumarate (Seroquel) 400 mg PO BEDTIME [facility] Last Admin: 05/10/17 19:19 Dose: 400 mg Quetiapine Fumarate (Seroquel) 50 mg PO BEDTIME [facility] Last Admin: 05/10/17 20:41 Dose: 50 mg Quetiapine Fumarate (Seroquel) Confirm Administered Dose 400 mg .ROUTE .STK-MED ONE Stop: 05/03/17 19:38 Last Admin: 05/04/17 00:57 Dose: Not Given Quetiapine Fumarate (Seroquel) Confirm Administered Dose 200 mg .ROUTE .STK-MED ONE Stop: 05/10/17 08:02 Last Admin: 05/10/17 20:41 Dose: Not Given Quetiapine Fumarate (Seroquel) 250 mg PO 0700,1100 [facility] Last Admin: 05/12/17 06:43 Dose: 250 mg Quetiapine Fumarate (Seroquel) 450 mg PO BEDTIME [facility] Last Admin: 05/26/17 19:49 Dose: 450 mg Quetiapine Fumarate (Seroquel) Confirm Administered Dose 50 mg .ROUTE .STK-MED ONE Stop: 05/11/17 06:54 Last Admin: 05/11/17 11:55 Dose: Not Given Quetiapine Fumarate (Seroquel) 200 mg PO DAILY@0700,1100 [facility] Last Admin: 05/27/17 08:03 Dose: 200 mg Quetiapine Fumarate (Seroquel) 50 mg PO DAILY@0700,1100 [facility] Last Admin: 05/27/17 08:03 Dose: 50 mg Quetiapine Fumarate (Seroquel) Confirm Administered Dose 50 mg .ROUTE .STK-MED ONE Stop: 05/14/17 13:32 Last Admin: 05/14/17 13:35 Dose: Not Given Quetiapine Fumarate (Seroquel) Confirm Administered Dose 50 mg .ROUTE .STK-MED ONE Stop: 05/20/17 19:39 Last Admin: 05/20/17 21:26 Dose: 50 mg Quetiapine Fumarate (Seroquel) Confirm Administered Dose 50 mg .ROUTE .STK-MED ONE Stop: 05/22/17 19:54 Last Admin: 05/22/17 21:02 Dose: Not Given Quetiapine Fumarate (Seroquel) Confirm Administered Dose 50 mg .ROUTE .STK-MED ONE Stop: 05/24/17 19:28 Last Admin: 05/24/17 19:41 Dose: Not Given Quetiapine Fumarate (Seroquel) Confirm Administered Dose 50 mg .ROUTE .STK-MED ONE Stop: 05/25/17 20:09 Last Admin: 05/25/17 20:39 Dose: Not Given Quetiapine Fumarate (Seroquel) Confirm Administered Dose 50 mg .ROUTE .STK-MED ONE Stop: 05/26/17 18:48 Last Admin: 05/26/17 19:42 Dose: Not Given Quetiapine Fumarate (Quetiapine Fumarate) Confirm Administered Dose 400 mg PO .STK-MED ONE Stop: 05/26/17 19:37 Last Admin: 05/26/17 19:43 Dose: Not Given Quetiapine Fumarate (Quetiapine Fumarate) 200 mg PO DAILY@0700,1100 [facility] Last Admin: 06/21/17 07:51 Dose: 200 mg Quetiapine Fumarate (Seroquel) 50 mg PO DAILY@0700,1100 [facility] Last Admin: 06/21/17 07:51 Dose: 50 mg Quetiapine Fumarate (Quetiapine Fumarate) Confirm Administered Dose 400 mg PO .STK-MED ONE Stop: 05/27/17 19:18 Last Admin: 05/27/17 19:28 Dose: Not Given Quetiapine Fumarate (Quetiapine Fumarate) Confirm Administered Dose 400 mg PO .STK-MED ONE Stop: 06/01/17 19:29 Last Admin: 06/01/17 19:54 Dose: Not Given Quetiapine Fumarate (Quetiapine Fumarate) Confirm Administered Dose 400 mg PO .STK-MED ONE Stop: 06/02/17 19:47 Last Admin: 06/02/17 20:02 Dose: Not Given Quetiapine Fumarate (Quetiapine Fumarate) Confirm Administered Dose 400 mg PO .STK-MED ONE Stop: 06/03/17 19:38 Last Admin: 06/03/17 19:47 Dose: Not Given Quetiapine Fumarate (Quetiapine Fumarate) Confirm Administered Dose 400 mg PO .STK-MED ONE Stop: 06/04/17 20:38 Last Admin: 06/04/17 23:12 Dose: Not Given Quetiapine Fumarate (Quetiapine Fumarate) Confirm Administered Dose 400 mg PO .STK-MED ONE Stop: 06/05/17 19:39 Last Admin: 06/05/17 20:45 Dose: Not Given Quetiapine Fumarate (Quetiapine Fumarate) Confirm Administered Dose 400 mg PO .STK-MED ONE Stop: 06/06/17 19:30 Last Admin: 06/06/17 20:36 Dose: Not Given Quetiapine Fumarate (Seroquel) Confirm Administered Dose 50 mg .ROUTE .STK-MED ONE Stop: 06/07/17 19:07 Last Admin: 06/07/17 21:33 Dose: Not Given Quetiapine Fumarate (Quetiapine Fumarate) Confirm Administered Dose 400 mg PO .STK-MED ONE Stop: 06/07/17 19:07 Last Admin: 06/07/17 21:32 Dose: Not Given Quetiapine Fumarate (Seroquel) Confirm Administered Dose 50 mg .ROUTE .STK-MED ONE Stop: 06/08/17 06:00 Last Admin: 06/08/17 06:12 Dose: Not Given Quetiapine Fumarate (Seroquel) Confirm Administered Dose 50 mg .ROUTE .STK-MED ONE Stop: 06/08/17 10:15 Last Admin: 06/08/17 10:18 Dose: Not Given Quetiapine Fumarate (Quetiapine Fumarate) Confirm Administered Dose 400 mg PO .STK-MED ONE Stop: 06/08/17 19:00 Last Admin: 06/08/17 19:32 Dose: Not Given Quetiapine Fumarate (Quetiapine Fumarate) Confirm Administered Dose 400 mg PO .STK-MED ONE Stop: 06/09/17 21:28 Last Admin: 06/09/17 21:57 Dose: Not Given Quetiapine Fumarate (Quetiapine Fumarate) Confirm Administered Dose 400 mg PO .STK-MED ONE Stop: 06/10/17 19:36 Last Admin: 06/10/17 19:39 Dose: Not Given Quetiapine Fumarate (Quetiapine Fumarate) Confirm Administered Dose 400 mg PO .STK-MED ONE Stop: 06/11/17 19:31 Last Admin: 06/11/17 19:43 Dose: Not Given Quetiapine Fumarate (Quetiapine Fumarate) Confirm Administered Dose 400 mg PO .STK-MED ONE Stop: 06/12/17 19:22 Last Admin: 06/12/17 19:31 Dose: Not Given Quetiapine Fumarate (Quetiapine Fumarate) Confirm Administered Dose 400 mg PO .STK-MED ONE Stop: 06/14/17 20:19 Last Admin: 06/14/17 21:11 Dose: Not Given Quetiapine Fumarate (Quetiapine Fumarate) Confirm Administered Dose 400 mg PO .STK-MED ONE Stop: 06/15/17 19:12 Last Admin: 06/15/17 19:18 Dose: Not Given Quetiapine Fumarate (Quetiapine Fumarate) Confirm Administered Dose 400 mg PO .STK-MED ONE Stop: 06/16/17 20:27 Last Admin: 06/16/17 20:47 Dose: Not Given Quetiapine Fumarate (Quetiapine Fumarate) Confirm Administered Dose 400 mg PO .STK-MED ONE Stop: 06/17/17 19:30 Last Admin: 06/17/17 20:54 Dose: Not Given Quetiapine Fumarate (Quetiapine Fumarate) Confirm Administered Dose 400 mg PO .STK-MED ONE Stop: 06/20/17 19:56 Last Admin: 06/20/17 20:11 Dose: Not Given Quetiapine Fumarate (Quetiapine Fumarate) Confirm Administered Dose 400 mg PO .STK-MED ONE Stop: 06/21/17 19:39 Last Admin: 06/21/17 19:46 Dose: Not Given Trimethoprim/Sulfamethoxazole (Septra Ds) 1 tab PO BID [facility] Stop: 06/03/17 23:59 Last Admin: 06/03/17 19:47 Dose: 1 tab Tuberculin PPD (Aplisol) 5 unit IDERM ONETIME ONE Stop: 04/30/17 16:28 - Exam General: Other (confused, patient ) HEENT: Pupils Equal Lungs: Normal Respiratory Effort, Decreased Breath Sounds Cardiovascular: Regular Rate, Regular Rhythm GI/Abdominal Exam: Normal Bowel Sounds Extremities: Normal Inspection, Non-Tender, No Pedal Edema Skin: Warm, Dry, Intact, Other (seborrheic dermatitis) - Problem List & Annotations (1) Subdural hemorrhage following injury SNOMED Code(s): 151407182 Code(s): S06.5X9A - TRAUM SUBDR HEM W LOC OF UNSP DURATION, INIT Status: Chronic Priority: High Current Visit: Yes Qualifiers: Encounter type: subsequent encounter Loss of consciousness presence/ duration: without LOC Qualified Code(s): S06.5X0D - Traumatic subdural hemorrhage without loss of consciousness, subsequent encounter (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 Code(s): F03.91 - UNSPECIFIED DEMENTIA WITH BEHAVIORAL DISTURBANCE Status: Chronic Priority: High Current Visit: Yes Qualifiers: Dementia behavioral disturbance: with behavioral disturbance Qualified Code (s): F02.81 - Dementia in other diseases classified elsewhere with behavioral disturbance (3) Paranoid schizophrenia, chronic condition SNOMED Code(s): 80128568 Code(s): F20.0 - PARANOID SCHIZOPHRENIA Status: Chronic Priority: High Current Visit: Yes (4) Diabetes mellitus SNOMED Code(s): 71796457 Code(s): E11.9 - TYPE 2 DIABETES MELLITUS WITHOUT COMPLICATIONS Status: Chronic Priority: Medium Current Visit: Yes Qualifiers: Diabetes mellitus type: type 2 Diabetes mellitus complication status: with hyperglycemia Diabetes mellitus terminal gauger supervisor insulin use: without half-way use Qualified Code(s): E11.65 - Type 2 diabetes mellitus with hyperglycemia (5) Neurogenic bladder SNOMED Code(s): 193949726 Code(s): N31.9 - NEUROMUSCULAR DYSFUNCTION OF BLADDER, UNSPECIFIED Status: Acute Current Visit: Yes (6) Palliative care patient SNOMED Code(s): 333262243 Code(s): Z51.5 - ENCOUNTER FOR PALLIATIVE CARE Status: Acute Priority: High Current Visit: Yes (7) Comfort measures only status SNOMED Code(s): 44597252445999 Code(s): Z51.5 - ENCOUNTER FOR PALLIATIVE CARE Status: Acute Priority: High Current Visit: Yes - Problem List Review Problem List Initiated/Reviewed/Updated: Yes - Assessment Assessment:: Fever - Plan Plan:: Pt admit to swing bed for adjustment of psych. medications, pain management, constipation, overflow incontinence, strengthening, and decrease in intake. Dementia and adjustment of psych medications: Administer medications as pt tolerates, May crush and give in soft foods. With periods of agitation, start Ativan 0.5 mg tid as needed to keep pt comfortable and resting. Pain Management: Assess and treat headache and neck pain. Medications ordered for mild, moderate, and severe pain. Constipation: Rectal suppository or enema every 2-3 days as needed. Overflow incontinence: Carpio catheter to bedside drainage. weakness: PT/OT continue to offer strengthening/evaluation as pt has more periods of being alert/awake. decreased oral intake: IVD'cd Mechanical soft diet as tolerated, when alert. Diabetes with hyperglycemia: Monitor blood sugars. Offer Metformin when alert and able to swallow medication. 05/06/17 Agree with above 1 Subdural hematoma: Ct head repeated on 05/05/17 shows slight increase in the size of the right subdural hematoma maira 10-13mm and also there is a small fluid collection over the left side about 7mm which is new.Pt does seem to be clinically improving and presently is off Iv fluids and tolerating oral diet. I did call , Neurosurgeon automation qa tester. 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 reassured that happen some time. He did recommend to repeat Ct head in 1 month time from time of injury to make sure the hematoma is resolving( as patient has schizophrenia and is hard to monitor his neurologic status). 2) Neurogenic bladder: Pt has had chronic urinary retention for more than a month. He has been on carpio catheter for urinary drainage. Apparently Pt has not had successful clamping and drainage and her does not void well when off catheter. I have discussed patient with the urologistat [facility]. Dr capellan does agree with this being neurogenic bladder issue , which will cause intermittent retention overflow. Considering his severe schizophrenia and age, Dr. Capellan's recommendation has been to try straight catheterizing this patient as needed. But patient in the past gets agitated when he needs cauterization, but once catheter is in place he does keep the carpio in place. does recommend continuos cauterization, as there is not much option available considering his co-morbid conditions,. Also the cholinergic effect of the antipsychotics he is on can make his neurogenic bladder and urinary retention worse. Per Dr Capellan's recommendation will try keeping patient on continuous cauterization weight the risks and benefits. 05/10/17 Pt is running low grade fever just now, with his dementia and schizophrenia, hard to take any history from patient. No change in status. Clinical exam of patient is normal. refusing tylenol. Will get workup with CBC , UA and chest xray and followup with result. His CBC and Chest xray are normal. UA has not been done. This could be transient elevation of the temperature. Will monitor him closely. If he continues to spike will work it up. 05/20/[address] Thrasher on management of patient. We are in contact with family and Guardian and consensus to keep comfortable and continue current cares and management for agitation as needed and daily cares. Patient does appear to have improved agitation with increased Seroquel dosing. 05/25/17 Patient plan to continue current medications and continue meals as tolerated. Nursing staff have been at bedside feeding patient for meals. Patient has gotten up with PT/OT but only walked a few steps with assistance. He remains in bed most of the day. We will continue to monitor for sore formation and try frequent up to chair and feedings. Patient does respond to feeding and does eat little amounts and does state he is full. Continued f/u with Dr. Thrasher. F/u CT as scheduled in a few weeks. No further changes. 06/15/17 We are continuing comfort cares and monitoring. Patient does eat a few spoonfuls of pureed food at a time. He does appear weaker and more obtund. Continue all comfort care orders and will adjust as needed. 06/22/2017 We will continue comfort care and management. Patient does appear very comfortable and does eat and drink with monitoring from nurses and dietary.
[2017-06-22] MEDS: LORazepam 0.5 MG Tab PO PRN (14:27)
[2017-06-22] MEDS ORDERED: QUEtiapine Fumarate 200 MG TABLET PO ONE (21:28)
[2017-06-22] MEDS: LORazepam 2 MG/ML MDV SUBCUT PRN (22:02)
[2017-06-22] MEDS: Citalopram 20 MG Tab PO SCH (22:57)
[2017-06-22] MEDS: Erythromycin Base 0.5% Ophth Oint 3.5 GM Tube EYERT SCH (22:57)
[2017-06-23] MEDS: Citalopram 20 MG Tab PO SCH ×2 (01:02→20:41)
[2017-06-23] MEDS: Acetaminophen 325 MG Tab PO SCH ×3 (01:02→20:41)
[2017-06-23] MEDS: QUEtiapine Fumarate 200 MG TABLET PO SCH ×2 (08:15→13:05)
[2017-06-23] MEDS: Sodium Chloride 0.9% 10 ML Syringe FLUSH SCH (08:16)
[2017-06-23] MEDS: Acetaminophen/HYDROcodone 325-5 MG Tab PO PRN (13:06)
[2017-06-23] MEDS: Erythromycin Base 0.5% Ophth Oint 3.5 GM Tube EYERT SCH (20:42)
[2017-06-24] MEDS: Acetaminophen/HYDROcodone 325-5 MG Tab PO PRN (12:00)
[2017-06-24] MEDS: QUEtiapine Fumarate 200 MG TABLET PO SCH ×2 (13:11)
[2017-06-24] MEDS: Acetaminophen 325 MG Tab PO SCH ×2 (13:12→19:25)
[2017-06-24] MEDS: Sodium Chloride 0.9% 10 ML Syringe FLUSH SCH (13:13)
[2017-06-24] MEDS ORDERED: QUEtiapine Fumarate 200 MG TABLET PO ONE (19:23)
[2017-06-24] MEDS: Citalopram 20 MG Tab PO SCH (19:24)
[2017-06-24] MEDS: Erythromycin Base 0.5% Ophth Oint 3.5 GM Tube EYERT SCH (19:26)
[2017-06-25] MEDS: QUEtiapine Fumarate 200 MG TABLET PO SCH ×2 (07:31→12:07)
[2017-06-25] MEDS: Acetaminophen 325 MG Tab PO SCH ×2 (07:31→20:48)
[2017-06-25] MEDS: fentaNYL 25 MCG/HR Transdermal Patch TRDERM SCH (07:34)
[2017-06-25] MEDS: Morphine 2 MG/ML Syringe SUBCUT PRN (12:26)
[2017-06-25] MEDS ORDERED: QUEtiapine Fumarate 200 MG TABLET PO ONE (20:02)
[2017-06-25] MEDS: Morphine 2 MG/ML Syringe IVPUSH PRN (20:10)
[2017-06-25] MEDS: LORazepam 2 MG/ML MDV IVPUSH PRN (20:10)
[2017-06-25] MEDS: Citalopram 20 MG Tab PO SCH (20:44)
[2017-06-25] MEDS: Erythromycin Base 0.5% Ophth Oint 3.5 GM Tube EYERT SCH (20:46)
[2017-06-25] MEDS: LORazepam 0.5 MG Tab PO PRN (20:47)
[2017-06-25] MEDS: Acetaminophen/HYDROcodone 325-5 MG Tab PO PRN (21:30)
[2017-06-26] MEDS: QUEtiapine Fumarate 200 MG TABLET PO SCH ×2 (07:50→11:23)
[2017-06-26] MEDS: Acetaminophen 325 MG Tab PO SCH ×2 (07:50→20:00)
[2017-06-26] MEDS: Acetaminophen/HYDROcodone 325-5 MG Tab PO PRN ×2 (07:55→21:30)
[2017-06-26] MEDS ORDERED: QUEtiapine Fumarate 200 MG TABLET PO ONE (19:13)
[2017-06-26] MEDS: Citalopram 20 MG Tab PO SCH (19:41)
[2017-06-26] MEDS: LORazepam 0.5 MG Tab PO PRN (19:42)
[2017-06-26] MEDS: Erythromycin Base 0.5% Ophth Oint 3.5 GM Tube EYERT SCH (20:00)
[2017-06-27] MEDS: QUEtiapine Fumarate 200 MG TABLET PO SCH ×2 (07:58→13:13)
[2017-06-27] MEDS: Acetaminophen 325 MG Tab PO SCH ×2 (07:58→20:01)
[2017-06-27] MEDS ORDERED: QUEtiapine Fumarate 200 MG TABLET PO ONE (19:56)
[2017-06-27] MEDS: Citalopram 20 MG Tab PO SCH (20:00)
[2017-06-27] MEDS: LORazepam 0.5 MG Tab PO PRN (20:01)
[2017-06-27] MEDS: Acetaminophen/HYDROcodone 325-5 MG Tab PO PRN (21:15)
[2017-06-28] MEDS: Erythromycin Base 0.5% Ophth Oint 3.5 GM Tube EYERT SCH ×2 (05:03→19:23)
[2017-06-28] MEDS: QUEtiapine Fumarate 200 MG TABLET PO SCH ×2 (07:31→11:42)
[2017-06-28] MEDS: Acetaminophen 325 MG Tab PO SCH ×2 (07:31→19:14)
[2017-06-28] MEDS: fentaNYL 25 MCG/HR Transdermal Patch TRDERM SCH (07:33)
[2017-06-28] MEDS: Morphine 2 MG/ML Syringe IVPUSH PRN (10:00)
[2017-06-28] MEDS ORDERED: QUEtiapine Fumarate 200 MG TABLET PO ONE ×2 (19:11→19:18)
[2017-06-28] MEDS: Citalopram 20 MG Tab PO SCH (19:14)
[2017-06-28] MEDS: Acetaminophen/HYDROcodone 325-5 MG Tab PO PRN (19:15)
[2017-06-29] MEDS: LORazepam 2 MG/ML MDV SUBCUT PRN (07:29)
[2017-06-29] MEDS: Morphine 2 MG/ML Syringe SUBCUT PRN (07:30)
[2017-06-29] MEDS: Acetaminophen 325 MG Tab PO SCH ×2 (08:18→19:41)
[2017-06-29] MEDS: QUEtiapine Fumarate 200 MG TABLET PO SCH ×2 (08:19→14:00)
[2017-06-29] MEDS: Acetaminophen/HYDROcodone 325-5 MG Tab PO PRN (19:38)
[2017-06-29] MEDS: Citalopram 20 MG Tab PO SCH (19:38)
[2017-06-29] MEDS: LORazepam 0.5 MG Tab PO PRN (19:40)
[2017-06-29] MEDS: Erythromycin Base 0.5% Ophth Oint 3.5 GM Tube EYERT SCH (19:41)
[2017-06-30] MEDS: Morphine 2 MG/ML Syringe SUBCUT PRN (06:36)
[2017-06-30] MEDS: QUEtiapine Fumarate 200 MG TABLET PO SCH ×2 (10:12→17:44)
[2017-06-30] MEDS: Acetaminophen 325 MG Tab PO SCH ×2 (10:13→19:24)
[2017-06-30] MEDS: LORazepam 2 MG/ML MDV SUBCUT PRN ×2 (12:46→19:37)
[2017-06-30] MEDS ORDERED: QUEtiapine Fumarate 200 MG TABLET PO ONE (19:17)
[2017-06-30] MEDS: Acetaminophen/HYDROcodone 325-5 MG Tab PO PRN (19:22)
[2017-06-30] MEDS: Citalopram 20 MG Tab PO SCH (19:24)
[2017-06-30] MEDS: Erythromycin Base 0.5% Ophth Oint 3.5 GM Tube EYERT SCH (21:20)
[2017-06-30] MEDS: LORazepam 0.5 MG Tab PO PRN (21:21)
[2017-07-01] MEDS: LORazepam 2 MG/ML MDV SUBCUT PRN (04:51)
[2017-07-01] MEDS: Morphine 2 MG/ML Syringe IVPUSH PRN (07:30)
[2017-07-01] MEDS: QUEtiapine Fumarate 200 MG TABLET PO SCH ×2 (08:00→12:34)
[2017-07-01] MEDS: Acetaminophen 325 MG Tab PO SCH ×2 (09:49→20:39)
[2017-07-01] MEDS: fentaNYL 25 MCG/HR Transdermal Patch TRDERM SCH (09:50)
[2017-07-01] MEDS ORDERED: Scopolamine 1.5 MG Transdermal Patch TRDERM PRN (16:07)
[2017-07-01] MEDS ORDERED: QUEtiapine Fumarate 200 MG TABLET PO ONE (19:34)
[2017-07-01] MEDS: Citalopram 20 MG Tab PO SCH (20:29)
[2017-07-01] MEDS: Erythromycin Base 0.5% Ophth Oint 3.5 GM Tube EYERT SCH (20:31)
[2017-07-02] MEDS: Acetaminophen 325 MG Tab PO SCH ×2 (08:09→22:24)
[2017-07-02] MEDS: QUEtiapine Fumarate 200 MG TABLET PO SCH ×2 (08:10→12:15)
[2017-07-02] MEDS: Morphine 2 MG/ML Syringe SUBCUT PRN ×2 (19:42→22:25)
[2017-07-02] MEDS: Citalopram 20 MG Tab PO SCH (22:23)
[2017-07-02] MEDS: Erythromycin Base 0.5% Ophth Oint 3.5 GM Tube EYERT SCH (22:23)
[2017-07-03] MEDS: Morphine 2 MG/ML Syringe SUBCUT PRN ×2 (05:51→19:56)
[2017-07-03] MEDS: QUEtiapine Fumarate 200 MG TABLET PO SCH ×2 (08:38→16:09)
[2017-07-03] MEDS: Acetaminophen 325 MG Tab PO SCH (08:39)
[2017-07-03] MEDS ORDERED: QUEtiapine Fumarate 200 MG TABLET PO ONE (19:53)
[2017-07-04] MEDS: Citalopram 20 MG Tab PO SCH ×3 (01:44→20:35)
[2017-07-04] MEDS: Erythromycin Base 0.5% Ophth Oint 3.5 GM Tube EYERT SCH ×2 (01:44→20:36)
[2017-07-04] MEDS: Acetaminophen 325 MG Tab PO SCH ×3 (01:45→20:34)
[2017-07-04] MEDS: LORazepam 2 MG/ML MDV SUBCUT PRN (01:47)
[2017-07-04] MEDS: Acetaminophen/HYDROcodone 325-5 MG Tab PO PRN ×2 (07:37→17:38)
[2017-07-04] MEDS ORDERED: fentaNYL 25 MCG/HR Transdermal Patch ONE (08:45)
[2017-07-04] MEDS: fentaNYL 25 MCG/HR Transdermal Patch TRDERM SCH (08:47)
[2017-07-04] MEDS: QUEtiapine Fumarate 200 MG TABLET PO SCH ×2 (08:53→12:47)
[2017-07-04] MEDS ORDERED: QUEtiapine Fumarate 200 MG TABLET PO ONE (20:31)
[2017-07-05] MEDS: QUEtiapine Fumarate 200 MG TABLET PO SCH ×2 (07:33→13:09)
[2017-07-05] MEDS: Acetaminophen/HYDROcodone 325-5 MG Tab PO PRN (07:37)
[2017-07-05] MEDS: Acetaminophen 325 MG Tab PO SCH ×2 (07:39→19:35)
[2017-07-05] MEDS ORDERED: QUEtiapine Fumarate 200 MG TABLET PO ONE (19:32)
[2017-07-05] MEDS: Citalopram 20 MG Tab PO SCH (19:34)
[2017-07-06] MEDS: Erythromycin Base 0.5% Ophth Oint 3.5 GM Tube EYERT SCH ×2 (03:03→21:40)
[2017-07-06] MEDS: Morphine 2 MG/ML Syringe SUBCUT PRN ×3 (03:20→20:30)
[2017-07-06] MEDS: QUEtiapine Fumarate 200 MG TABLET PO SCH ×3 (07:52→15:26)
[2017-07-06] MEDS: Acetaminophen 325 MG Tab PO SCH ×2 (07:52→21:41)
[2017-07-06] MEDS: Acetaminophen/HYDROcodone 325-5 MG Tab PO PRN (09:09)
[2017-07-06] MEDS ORDERED: QUEtiapine Fumarate 200 MG TABLET PO ONE (20:09)
[2017-07-06] MEDS: LORazepam 2 MG/ML MDV SUBCUT PRN (20:33)
[2017-07-06] MEDS: Citalopram 20 MG Tab PO SCH (21:42)
[2017-07-07] MEDS: Bisacodyl 10 MG Supp RECTAL PRN (05:00)
[2017-07-07] MEDS: Docusate Sodium 100 MG Cap PO PRN (05:53)
[2017-07-07] MEDS: LORazepam 2 MG/ML MDV SUBCUT PRN (07:24)
[2017-07-07] MEDS: Morphine 2 MG/ML Syringe SUBCUT PRN (07:26)
[2017-07-07] MEDS: Acetaminophen 325 MG Tab PO SCH ×2 (09:00→20:30)
[2017-07-07] MEDS: QUEtiapine Fumarate 200 MG TABLET PO SCH ×2 (09:01→12:57)
[2017-07-07] MEDS: fentaNYL 25 MCG/HR Transdermal Patch TRDERM SCH (09:11)
[2017-07-07] MEDS ORDERED: QUEtiapine Fumarate 200 MG TABLET PO ONE (19:33)
[2017-07-07] MEDS: Citalopram 20 MG Tab PO SCH (20:27)
[2017-07-07] MEDS: Erythromycin Base 0.5% Ophth Oint 3.5 GM Tube EYERT SCH (20:31)
[2017-07-07] MEDS: LORazepam 0.5 MG Tab PO PRN (20:32)
[2017-07-07] MEDS: Acetaminophen/HYDROcodone 325-5 MG Tab PO PRN (22:14)
[2017-07-08] MEDS: QUEtiapine Fumarate 200 MG TABLET PO SCH ×2 (09:59→15:32)
[2017-07-08] MEDS: Acetaminophen/HYDROcodone 325-5 MG Tab PO PRN (10:02)
[2017-07-08] MEDS: Acetaminophen 325 MG Tab PO SCH ×2 (10:02→19:52)
[2017-07-08] MEDS ORDERED: QUEtiapine Fumarate 200 MG TABLET PO ONE (19:14)
[2017-07-08] MEDS: LORazepam 0.5 MG Tab PO PRN (19:51)
[2017-07-08] MEDS: Citalopram 20 MG Tab PO SCH (19:52)
[2017-07-08] MEDS: Erythromycin Base 0.5% Ophth Oint 3.5 GM Tube EYERT SCH (19:54)
[2017-07-09] MEDS: QUEtiapine Fumarate 200 MG TABLET PO SCH ×2 (12:30→12:31)
[2017-07-09] MEDS: Acetaminophen 325 MG Tab PO SCH ×2 (12:31→20:56)
[2017-07-09] MEDS ORDERED: QUEtiapine Fumarate 200 MG TABLET PO ONE (19:57)
[2017-07-09] MEDS: LORazepam 0.5 MG Tab PO PRN (20:52)
[2017-07-09] MEDS: Citalopram 20 MG Tab PO SCH (20:53)
[2017-07-09] MEDS: Erythromycin Base 0.5% Ophth Oint 3.5 GM Tube EYERT SCH (20:56)
[2017-07-09] MEDS: Acetaminophen/HYDROcodone 325-5 MG Tab PO PRN (21:30)
[2017-07-10] MEDS: LORazepam 0.5 MG Tab PO PRN (14:12)
[2017-07-10] MEDS: fentaNYL 25 MCG/HR Transdermal Patch TRDERM SCH (14:14)
[2017-07-10] MEDS: QUEtiapine Fumarate 200 MG TABLET PO SCH ×2 (14:16→16:55)
[2017-07-10] MEDS: Acetaminophen 325 MG Tab PO SCH ×2 (14:17→22:18)
[2017-07-10] MEDS ORDERED: Menthol/Zinc Oxide Ointment 113 GM Tube TOP ONE (20:00)
[2017-07-10] MEDS: Acetaminophen/HYDROcodone 325-5 MG Tab PO PRN (22:15)
[2017-07-10] MEDS: Citalopram 20 MG Tab PO SCH (22:18)
[2017-07-10] MEDS: Erythromycin Base 0.5% Ophth Oint 3.5 GM Tube EYERT SCH (22:18)
[2017-07-11] MEDS: Acetaminophen 325 MG Tab PO SCH ×2 (07:44→20:08)
[2017-07-11] MEDS: QUEtiapine Fumarate 200 MG TABLET PO SCH ×2 (07:44→12:15)
[2017-07-11] MEDS: LORazepam 0.5 MG Tab PO PRN ×2 (12:15→20:10)
[2017-07-11] MEDS: Acetaminophen/HYDROcodone 325-5 MG Tab PO PRN (12:16)
[2017-07-11] MEDS: Citalopram 20 MG Tab PO SCH (20:10)
[2017-07-11] MEDS: Erythromycin Base 0.5% Ophth Oint 3.5 GM Tube EYERT SCH (22:11)
[2017-07-12] MEDS: LORazepam 2 MG/ML MDV SUBCUT PRN (07:09)
[2017-07-12] MEDS: QUEtiapine Fumarate 200 MG TABLET PO SCH ×2 (07:25→12:08)
[2017-07-12] MEDS: Acetaminophen 325 MG Tab PO SCH ×2 (12:08→23:10)
[2017-07-12] MEDS: Docusate Sodium 100 MG Cap PO PRN (12:40)
[2017-07-12] MEDS: LORazepam 0.5 MG Tab PO PRN ×2 (12:40→23:09)
[2017-07-12] MEDS ORDERED: QUEtiapine Fumarate 200 MG TABLET PO ONE (20:12)
[2017-07-12] MEDS: Erythromycin Base 0.5% Ophth Oint 3.5 GM Tube EYERT SCH (23:10)
[2017-07-12] MEDS: Acetaminophen/HYDROcodone 325-5 MG Tab PO PRN (23:11)
[2017-07-12] MEDS: Citalopram 20 MG Tab PO SCH (23:11)
[2017-07-13] MEDS: Acetaminophen 325 MG Tab PO SCH ×2 (07:14→20:03)
[2017-07-13] MEDS: QUEtiapine Fumarate 200 MG TABLET PO SCH ×2 (07:14→12:19)
[2017-07-13] MEDS: fentaNYL 25 MCG/HR Transdermal Patch TRDERM SCH (12:27)
--- NOTE | 2017-07-13 14:26 | PCM.PN ---
- General Info Date of Service: 07/13/17 Functional Status: Reports: Pain Controlled - Review of Systems General: Reports: Weakness, Other (Unable to obtain ROS, patient does not reply but does respond to stimuli. ) - Patient Data Vitals - Most Recent: Last Vital Signs Temp 36.9 C 07/13/17 10:00 Pulse 85 07/13/17 10:00 Resp 16 07/13/17 10:00 BP 121/65 07/12/17 10:12 Pulse Ox 97 07/13/17 10:00 Weight - Most Recent: 60.237 kg I&O - Last 24 Hours: Intake & Output 07/12/17 07/13/17 07/13/17 22:59 06:59 14:59 Intake Total 240 Output Total 400 Balance -160 Med Orders - Current: Current Medications Acetaminophen (Tylenol) 650 mg PO BID [facility] Last Admin: 07/13/17 07:14 Dose: 650 mg Hydrocodone Bitart/Acetaminophen ([place] 325-5 Mg) 1 tab PO Q4H PRN PRN Reason: Pain (moderate 4-6) Last Admin: 07/12/17 23:11 Dose: 1 tab Bisacodyl (Dulcolax) 10 mg RECTAL DAILY PRN PRN Reason: Constipation Last Admin: 07/07/17 05:00 Dose: 10 mg Citalopram Hydrobromide (Celexa) 20 mg PO BEDTIME [facility] Last Admin: 07/12/17 23:11 Dose: 20 mg Docusate Sodium (Colace) 100 mg PO BID PRN PRN Reason: constipation Last Admin: 07/12/17 12:40 Dose: 100 mg Erythromycin (Erythromycin 0.5% Ophth Oint) 0 gm EYERT BEDTIME [facility] Last Admin: 07/12/17 23:10 Dose: Not Given Fentanyl (Duragesic) 25 mcg TRDERM Q72H [facility] Last Admin: 07/13/17 12:27 Dose: 25 mcg Lorazepam (Ativan) 0.5 mg PO Q8H PRN PRN Reason: Anxiety Last Admin: 07/12/17 23:09 Dose: 0.5 mg Lorazepam (Ativan) 1 mg SUBCUT Q4H PRN PRN Reason: Anxiety Last Admin: 07/12/17 07:09 Dose: 1 mg Miscellaneous Information (Remove Patch) 1 ea TRDERM ASDIRECTED [facility] Last Admin: 07/10/17 13:30 Dose: 1 ea Metronidazole 0.75% (Cream) 1 applic TOP DAILY [facility] Last Admin: 07/13/17 09:00 Dose: 1 applic Quetiapine Fumarate (Quetiapine Fumarate) 200 mg PO DAILY@0800,1200 [facility] Last Admin: 07/13/17 12:19 Dose: 200 mg Quetiapine Fumarate (Seroquel) 50 mg PO DAILY@0800,1200 [facility] Last Admin: 07/13/17 12:19 Dose: 50 mg Quetiapine Fumarate (Seroquel) 400 mg PO BEDTIME [facility] Last Admin: 07/12/17 23:10 Dose: 400 mg Quetiapine Fumarate (Seroquel) 50 mg PO BEDTIME [facility] Last Admin: 07/12/17 23:10 Dose: 50 mg Scopolamine (Transderm-Scop) 1.5 mg TRDERM Q72H PRN PRN Reason: Other Last Admin: 07/02/17 19:44 Dose: 1.5 mg Senna/Docusate Sodium (Senna Plus) 1 tab PO BID [facility] Last Admin: 07/13/17 07:14 Dose: 1 tab Sodium Biphosphate/Sodium Phosphate (Fleet Enema) 133 ml RECTAL ASDIRECTED PRN PRN Reason: Constipation Last Admin: 06/11/17 03:12 Dose: 133 ml Discontinued Medications Acetaminophen (Tylenol) Confirm Administered Dose 325 mg .ROUTE .STK-MED ONE Stop: 05/19/17 08:14 Last Admin: 05/19/17 08:28 Dose: 325 mg Hydrocodone Bitart/Acetaminophen ([place] 325-5 Mg) 0.5 tab PO Q4H PRN PRN Reason: Pain (moderate 4-6) Last Admin: 05/04/17 13:51 Dose: 0.5 tab Hydrocodone Bitart/Acetaminophen ([place] 325-5 Mg) Confirm Administered Dose 1 tab .ROUTE .STK-MED ONE Stop: 05/18/17 19:40 Last Admin: 05/18/17 21:39 Dose: Not Given Calamine/Phenol (Calmoseptine) 113 gm TOP .STK-MED ONE Stop: 05/17/17 08:01 Calamine/Phenol (Calmoseptine) 113 gm TOP .STK-MED ONE Stop: 07/10/17 20:01 Calcitonin [place] (Miacalcin Nasal [place]) 0 ml MIKY DAILY [facility] Last Admin: 05/04/17 08:14 Dose: 1 spray Calcitonin [place] (Miacalcin Nasal [place]) 3.7 ml MIKY DAILY [facility] Last Admin: 06/11/17 09:12 Dose: 1 spray Ciprofloxacin (Ciprofloxacin Hcl) 500 mg PO BID [facility] Last Admin: 05/19/17 08:31 Dose: 500 mg Ciprofloxacin (Ciprofloxacin Hcl) Confirm Administered Dose 500 mg .ROUTE .STK- MED ONE Stop: 05/10/17 23:06 Last Admin: 05/10/17 23:12 Dose: 500 mg Fentanyl (Duragesic) 12 mcg TRDERM Q72H [facility] Stop: 06/04/17 08:00 Last Admin: 06/03/17 19:50 Dose: 12 mcg Fentanyl (Duragesic) Confirm Administered Dose 12 mcg .ROUTE .STK-MED ONE Stop: 05/25/17 17:03 Last Admin: 05/25/17 18:33 Dose: Not Given Fentanyl (Duragesic) Confirm Administered Dose 25 mcg .ROUTE .STK-MED ONE Stop: 07/04/17 08:46 Last Admin: 07/04/17 08:52 Dose: Not Given Haloperidol Lactate (Haldol) Confirm Administered Dose 5 mg .ROUTE .STK-MED ONE Stop: 05/01/17 21:31 Last Admin: 05/02/17 03:32 Dose: Not Given Haloperidol Lactate (Haldol) 5 mg IVPUSH ONETIME ONE Stop: 05/01/17 21:01 Last Admin: 05/02/17 02:30 Dose: 2.5 mg Haloperidol Lactate (Haldol) 5 mg IVPUSH ONETIME ONE Stop: 05/06/17 21:26 Last Admin: 05/07/17 06:51 Dose: Not Given Sodium Chloride (Normal Saline) 1,000 mls @ 125 mls/hr IV ASDIRECTED [facility] Last Admin: 05/01/17 10:50 Dose: 125 mls/hr Dextrose/Sodium Chloride (Dextrose 5%-1/2 Ns) 1,000 mls @ 125 mls/hr IV ASDIRECTED [facility] Stop: 05/03/17 00:09 Last Admin: 05/01/17 21:30 Dose: 125 mls/hr Lactated Ringer's (Ringers, Lactated) 1,000 mls @ 250 mls/hr IV ASDIRECTED [facility] Lactated Ringer's (Ringers, Lactated) 1,000 mls @ 200 mls/hr IV ASDIRECTED [facility] Dextrose/Sodium Chloride (Dextrose 5%-1/2 Ns) 1,000 mls @ 150 mls/hr IV ASDIRECTED [facility] Last Admin: 06/05/17 00:22 Dose: 150 mls/hr Insulin Detemir (Levemir) 5 unit SUBCUT BEDTIME [facility] Last Admin: 06/03/17 19:48 Dose: 5 units Insulin Detemir (Levemir) 3 unit SUBCUT Q12HR [facility] Last Admin: 06/11/17 09:18 Dose: 3 unit Lisinopril (Prinivil) 10 mg PO DAILY [facility] Last Admin: 06/11/17 09:14 Dose: 10 mg Lorazepam (Ativan) Confirm Administered Dose 2 mg .ROUTE .STK-MED ONE Stop: 05/01/17 21:31 Last Admin: 05/02/17 03:32 Dose: Not Given Lorazepam (Ativan) 2 mg IVPUSH ONETIME ONE Stop: 05/01/17 21:01 Last Admin: 05/02/17 02:35 Dose: 1 mg Lorazepam (Ativan) Confirm Administered Dose 2 mg .ROUTE .STK-MED ONE Stop: 05/05/17 15:27 Last Admin: 05/05/17 17:48 Dose: Not Given Lorazepam (Ativan) 2 mg IVPUSH ONETIME ONE Stop: 05/05/17 15:50 Last Admin: 05/05/17 15:40 Dose: 2 mg Lorazepam (Ativan) Confirm Administered Dose 2 mg .ROUTE .STK-MED ONE Stop: 05/10/17 19:09 Last Admin: 05/10/17 19:10 Dose: 2 mg Lorazepam (Ativan) 1 mg IVPUSH Q4H PRN PRN Reason: Anxiety Last Admin: 06/25/17 20:10 Dose: 1 mg Magnesium Hydroxide (Milk Of Magnesia) Confirm Administered Dose 30 ml .ROUTE .STK-MED ONE Stop: 05/16/17 10:03 Last Admin: 05/16/17 08:30 Dose: 30 ml Magnesium Hydroxide (Milk Of Magnesia) Confirm Administered Dose 30 ml .ROUTE .STK-MED ONE Stop: 05/27/17 22:46 Last Admin: 05/28/17 06:25 Dose: 30 ml Metformin HCl (Glucophage) 250 mg PO BID [facility] Last Admin: 05/09/17 21:03 Dose: Not Given Metformin HCl (Glucophage) 250 mg PO BIDMEALS [facility] Last Admin: 06/02/17 08:49 Dose: 250 mg Morphine Sulfate (Morphine) 2 mg IVPUSH Q2H PRN PRN Reason: Pain (severe 7-10) Last Admin: 06/25/17 20:10 Dose: 2 mg Morphine Sulfate (Morphine) 2 mg SUBCUT Q2H PRN PRN Reason: Pain (severe 7-10) Last Admin: 07/07/17 07:26 Dose: 2 mg Morphine Sulfate (Morphine) 2 mg IVPUSH Q2H PRN PRN Reason: Pain Last Admin: 07/01/17 07:30 Dose: 2 mg Non-Formulary Medication (Quetiapine [Seroquel Xr]) 1 tab PO ACLUNCH [facility] Quetiapine Fumarate (Seroquel) 200 mg PO BID@0700,1100 [facility] Last Admin: 05/03/17 07:32 Dose: Not Given Quetiapine Fumarate (Seroquel) 450 mg PO DAILY@2000 [facility] Last Admin: 05/28/17 20:05 Dose: 400 mg Quetiapine Fumarate (Seroquel) 200 mg PO DAILY@0700,1100 [facility] Last Admin: 05/10/17 21:46 Dose: Not Given Quetiapine Fumarate (Seroquel) 400 mg PO BEDTIME [facility] Last Admin: 07/11/17 20:15 Dose: 400 mg Quetiapine Fumarate (Seroquel) 50 mg PO BEDTIME [facility] Last Admin: 05/10/17 20:41 Dose: 50 mg Quetiapine Fumarate (Seroquel) Confirm Administered Dose 400 mg .ROUTE .STK-MED ONE Stop: 05/03/17 19:38 Last Admin: 05/04/17 00:57 Dose: Not Given Quetiapine Fumarate (Seroquel) Confirm Administered Dose 200 mg .ROUTE .STK-MED ONE Stop: 05/10/17 08:02 Last Admin: 05/10/17 20:41 Dose: Not Given Quetiapine Fumarate (Seroquel) 250 mg PO 0700,1100 [facility] Last Admin: 05/12/17 06:43 Dose: 250 mg Quetiapine Fumarate (Seroquel) 450 mg PO BEDTIME [facility] Last Admin: 05/26/17 19:49 Dose: 450 mg Quetiapine Fumarate (Seroquel) Confirm Administered Dose 50 mg .ROUTE .STK-MED ONE Stop: 05/11/17 06:54 Last Admin: 05/11/17 11:55 Dose: Not Given Quetiapine Fumarate (Seroquel) 200 mg PO DAILY@0700,1100 [facility] Last Admin: 05/27/17 08:03 Dose: 200 mg Quetiapine Fumarate (Seroquel) 50 mg PO DAILY@0700,1100 [facility] Last Admin: 05/27/17 08:03 Dose: 50 mg Quetiapine Fumarate (Seroquel) Confirm Administered Dose 50 mg .ROUTE .STK-MED ONE Stop: 05/14/17 13:32 Last Admin: 05/14/17 13:35 Dose: Not Given Quetiapine Fumarate (Seroquel) Confirm Administered Dose 50 mg .ROUTE .STK-MED ONE Stop: 05/20/17 19:39 Last Admin: 05/20/17 21:26 Dose: 50 mg Quetiapine Fumarate (Seroquel) Confirm Administered Dose 50 mg .ROUTE .STK-MED ONE Stop: 05/22/17 19:54 Last Admin: 05/22/17 21:02 Dose: Not Given Quetiapine Fumarate (Seroquel) Confirm Administered Dose 50 mg .ROUTE .STK-MED ONE Stop: 05/24/17 19:28 Last Admin: 05/24/17 19:41 Dose: Not Given Quetiapine Fumarate (Seroquel) Confirm Administered Dose 50 mg .ROUTE .STK-MED ONE Stop: 05/25/17 20:09 Last Admin: 05/25/17 20:39 Dose: Not Given Quetiapine Fumarate (Seroquel) Confirm Administered Dose 50 mg .ROUTE .STK-MED ONE Stop: 05/26/17 18:48 Last Admin: 05/26/17 19:42 Dose: Not Given Quetiapine Fumarate (Quetiapine Fumarate) Confirm Administered Dose 400 mg PO .STK-MED ONE Stop: 05/26/17 19:37 Last Admin: 05/26/17 19:43 Dose: Not Given Quetiapine Fumarate (Quetiapine Fumarate) 200 mg PO DAILY@0700,1100 [facility] Last Admin: 06/21/17 07:51 Dose: 200 mg Quetiapine Fumarate (Seroquel) 50 mg PO DAILY@0700,1100 [facility] Last Admin: 06/21/17 07:51 Dose: 50 mg Quetiapine Fumarate (Seroquel) 400 mg PO BEDTIME [facility] Last Admin: 07/01/17 20:29 Dose: 400 mg Quetiapine Fumarate (Seroquel) 50 mg PO BEDTIME [facility] Last Admin: 07/01/17 20:29 Dose: 50 mg Quetiapine Fumarate (Quetiapine Fumarate) Confirm Administered Dose 400 mg PO .STK-MED ONE Stop: 05/27/17 19:18 Last Admin: 05/27/17 19:28 Dose: Not Given Quetiapine Fumarate (Quetiapine Fumarate) Confirm Administered Dose 400 mg PO .STK-MED ONE Stop: 06/01/17 19:29 Last Admin: 06/01/17 19:54 Dose: Not Given Quetiapine Fumarate (Quetiapine Fumarate) Confirm Administered Dose 400 mg PO .STK-MED ONE Stop: 06/02/17 19:47 Last Admin: 06/02/17 20:02 Dose: Not Given Quetiapine Fumarate (Quetiapine Fumarate) Confirm Administered Dose 400 mg PO .STK-MED ONE Stop: 06/03/17 19:38 Last Admin: 06/03/17 19:47 Dose: Not Given Quetiapine Fumarate (Quetiapine Fumarate) Confirm Administered Dose 400 mg PO .STK-MED ONE Stop: 06/04/17 20:38 Last Admin: 06/04/17 23:12 Dose: Not Given Quetiapine Fumarate (Quetiapine Fumarate) Confirm Administered Dose 400 mg PO .STK-MED ONE Stop: 06/05/17 19:39 Last Admin: 06/05/17 20:45 Dose: Not Given Quetiapine Fumarate (Quetiapine Fumarate) Confirm Administered Dose 400 mg PO .STK-MED ONE Stop: 06/06/17 19:30 Last Admin: 06/06/17 20:36 Dose: Not Given Quetiapine Fumarate (Seroquel) Confirm Administered Dose 50 mg .ROUTE .STK-MED ONE Stop: 06/07/17 19:07 Last Admin: 06/07/17 21:33 Dose: Not Given Quetiapine Fumarate (Quetiapine Fumarate) Confirm Administered Dose 400 mg PO .STK-MED ONE Stop: 06/07/17 19:07 Last Admin: 06/07/17 21:32 Dose: Not Given Quetiapine Fumarate (Seroquel) Confirm Administered Dose 50 mg .ROUTE .STK-MED ONE Stop: 06/08/17 06:00 Last Admin: 06/08/17 06:12 Dose: Not Given Quetiapine Fumarate (Seroquel) Confirm Administered Dose 50 mg .ROUTE .STK-MED ONE Stop: 06/08/17 10:15 Last Admin: 06/08/17 10:18 Dose: Not Given Quetiapine Fumarate (Quetiapine Fumarate) Confirm Administered Dose 400 mg PO .ST[place]ingo-MED ONE Stop: 06/08/17 19:00 Last Admin: 06/08/17 19:32 Dose: Not Given Quetiapine Fumarate (Quetiapine Fumarate) Confirm Administered Dose 400 mg PO .STColingo-MED ONE Stop: 06/09/17 21:28 Last Admin: 06/09/17 21:57 Dose: Not Given Quetiapine Fumarate (Quetiapine Fumarate) Confirm Administered Dose 400 mg PO .STColingo-MED ONE Stop: 06/10/17 19:36 Last Admin: 06/10/17 19:39 Dose: Not Given Quetiapine Fumarate (Quetiapine Fumarate) Confirm Administered Dose 400 mg PO .STColingo-MED ONE Stop: 06/11/17 19:31 Last Admin: 06/11/17 19:43 Dose: Not Given Quetiapine Fumarate (Quetiapine Fumarate) Confirm Administered Dose 400 mg PO .STColingo-MED ONE Stop: 06/12/17 19:22 Last Admin: 06/12/17 19:31 Dose: Not Given Quetiapine Fumarate (Quetiapine Fumarate) Confirm Administered Dose 400 mg PO .STK-MED ONE Stop: 06/14/17 20:19 Last Admin: 06/14/17 21:11 Dose: Not Given Quetiapine Fumarate (Quetiapine Fumarate) Confirm Administered Dose 400 mg PO .STK-MED ONE Stop: 06/15/17 19:12 Last Admin: 06/15/17 19:18 Dose: Not Given Quetiapine Fumarate (Quetiapine Fumarate) Confirm Administered Dose 400 mg PO .STColingo-MED ONE Stop: 06/16/17 20:27 Last Admin: 06/16/17 20:47 Dose: Not Given Quetiapine Fumarate (Quetiapine Fumarate) Confirm Administered Dose 400 mg PO .STK-MED ONE Stop: 06/17/17 19:30 Last Admin: 06/17/17 20:54 Dose: Not Given Quetiapine Fumarate (Quetiapine Fumarate) Confirm Administered Dose 400 mg PO .STK-MED ONE Stop: 06/20/17 19:56 Last Admin: 06/20/17 20:11 Dose: Not Given Quetiapine Fumarate (Quetiapine Fumarate) Confirm Administered Dose 400 mg PO .STK-MED ONE Stop: 06/21/17 19:39 Last Admin: 06/21/17 19:46 Dose: Not Given Quetiapine Fumarate (Quetiapine Fumarate) Confirm Administered Dose 400 mg PO .STK-MED ONE Stop: 06/22/17 21:29 Last Admin: 06/23/17 08:16 Dose: Not Given Quetiapine Fumarate (Quetiapine Fumarate) Confirm Administered Dose 400 mg PO .STK-MED ONE Stop: 06/24/17 19:24 Last Admin: 06/25/17 07:04 Dose: Not Given Quetiapine Fumarate (Quetiapine Fumarate) Confirm Administered Dose 400 mg PO .STK-MED ONE Stop: 06/25/17 20:03 Last Admin: 06/25/17 20:00 Dose: Not Given Quetiapine Fumarate (Quetiapine Fumarate) Confirm Administered Dose 400 mg PO .STK-MED ONE Stop: 06/26/17 19:14 Last Admin: 06/26/17 20:00 Dose: Not Given Quetiapine Fumarate (Quetiapine Fumarate) Confirm Administered Dose 400 mg PO .STK-MED ONE Stop: 06/27/17 19:57 Last Admin: 06/27/17 20:00 Dose: Not Given Quetiapine Fumarate (Quetiapine Fumarate) Confirm Administered Dose 200 mg PO .STK-MED ONE Stop: 06/28/17 19:12 Last Admin: 06/28/17 19:23 Dose: Not Given Quetiapine Fumarate (Quetiapine Fumarate) Confirm Administered Dose 200 mg PO .STK-MED ONE Stop: 06/28/17 19:19 Last Admin: 06/28/17 20:14 Dose: Not Given Quetiapine Fumarate (Quetiapine Fumarate) Confirm Administered Dose 400 mg PO .STK-MED ONE Stop: 06/30/17 19:18 Last Admin: 06/30/17 19:52 Dose: Not Given Quetiapine Fumarate (Quetiapine Fumarate) Confirm Administered Dose 400 mg PO .STK-MED ONE Stop: 07/01/17 19:35 Last Admin: 07/01/17 20:29 Dose: Not Given Quetiapine Fumarate (Quetiapine Fumarate) Confirm Administered Dose 400 mg PO .STK-MED ONE Stop: 07/03/17 19:54 Last Admin: 07/04/17 03:53 Dose: 400 mg Quetiapine Fumarate (Quetiapine Fumarate) Confirm Administered Dose 400 mg PO .STK-MED ONE Stop: 07/04/17 20:32 Last Admin: 07/04/17 20:36 Dose: Not Given Quetiapine Fumarate (Quetiapine Fumarate) Confirm Administered Dose 400 mg PO .STK-MED ONE Stop: 07/05/17 19:33 Last Admin: 07/05/17 19:36 Dose: Not Given Quetiapine Fumarate (Quetiapine Fumarate) Confirm Administered Dose 400 mg PO .STK-MED ONE Stop: 07/06/17 20:10 Last Admin: 07/06/17 21:42 Dose: 400 mg Quetiapine Fumarate (Quetiapine Fumarate) Confirm Administered Dose 400 mg PO .STK-MED ONE Stop: 07/07/17 19:34 Last Admin: 07/07/17 22:12 Dose: Not Given Quetiapine Fumarate (Quetiapine Fumarate) Confirm Administered Dose 400 mg PO .STK-MED ONE Stop: 07/08/17 19:15 Last Admin: 07/09/17 00:03 Dose: Not Given Quetiapine Fumarate (Quetiapine Fumarate) Confirm Administered Dose 400 mg PO .STK-MED ONE Stop: 07/09/17 19:58 Last Admin: 07/09/17 20:55 Dose: Not Given Quetiapine Fumarate (Quetiapine Fumarate) Confirm Administered Dose 400 mg PO .STK-MED ONE Stop: 07/12/17 20:13 Last Admin: 07/12/17 23:11 Dose: Not Given Sodium Chloride (Saline Flush) 10 ml FLUSH BID [facility] Last Admin: 06/24/17 13:13 Dose: Not Given Trimethoprim/Sulfamethoxazole (Septra Ds) 1 tab PO BID [facility] Stop: 06/03/17 23:59 Last Admin: 06/03/17 19:47 Dose: 1 tab Tuberculin PPD (Aplisol) 5 unit IDERM ONETIME ONE Stop: 04/30/17 16:28 - Exam General: Obtunded HEENT: Pupils Equal, Pupils Reactive Neck: Supple Lungs: Clear to Auscultation, Normal Respiratory Effort Cardiovascular: Regular Rate, Regular Rhythm GI/Abdominal Exam: Normal Bowel Sounds, Soft, Non-Tender (Male) Exam: No Hernia Back Exam: Normal Inspection Extremities: Normal Inspection Peripheral Pulses: 2+: Dorsalis Pedis (L), Dorsalis Pedis (R) Skin: Warm, Dry, Intact Neurological: No New Focal Deficit - Problem List & Annotations (1) Subdural hemorrhage following injury SNOMED Code(s): 856388105 Code(s): S06.5X9A - TRAUM SUBDR HEM W LOC OF UNSP DURATION, INIT Status: Chronic Priority: High Current Visit: Yes Qualifiers: Encounter type: subsequent encounter Loss of consciousness presence/ duration: without LOC Qualified Code(s): S06.5X0D - Traumatic subdural hemorrhage without loss of consciousness, subsequent encounter (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 Code(s): F03.91 - UNSPECIFIED DEMENTIA WITH BEHAVIORAL DISTURBANCE Status: Chronic Priority: High Current Visit: Yes Qualifiers: Dementia behavioral disturbance: with behavioral disturbance Qualified Code (s): F02.81 - Dementia in other diseases classified elsewhere with behavioral disturbance (3) Paranoid schizophrenia, chronic condition SNOMED Code(s): 89150786 Code(s): F20.0 - PARANOID SCHIZOPHRENIA Status: Chronic Priority: High Current Visit: Yes (4) Diabetes mellitus SNOMED Code(s): 06560723 Code(s): E11.9 - TYPE 2 DIABETES MELLITUS WITHOUT COMPLICATIONS Status: Chronic Priority: Medium Current Visit: Yes Qualifiers: Diabetes mellitus type: type 2 Diabetes mellitus complication status: with hyperglycemia Diabetes mellitus custodial insulin use: without termite control service representative use Qualified Code(s): E11.65 - Type 2 diabetes mellitus with hyperglycemia (5) Neurogenic bladder SNOMED Code(s): 712407416 Code(s): N31.9 - NEUROMUSCULAR DYSFUNCTION OF BLADDER, UNSPECIFIED Status: Acute Current Visit: Yes (6) Palliative care patient SNOMED Code(s): 517243408 Code(s): Z51.5 - ENCOUNTER FOR PALLIATIVE CARE Status: Acute Priority: High Current Visit: Yes (7) Comfort measures only status SNOMED Code(s): 69304135806809 Code(s): Z51.5 - ENCOUNTER FOR PALLIATIVE CARE Status: Acute Priority: High Current Visit: Yes - Problem List Review Problem List Initiated/Reviewed/Updated: Yes - Assessment Assessment:: Fever - Plan Plan:: Pt admit to swing bed for adjustment of psych. medications, pain management, constipation, overflow incontinence, strengthening, and decrease in intake. Dementia and adjustment of psych medications: Administer medications as pt tolerates, May crush and give in soft foods. With periods of agitation, start Ativan 0.5 mg tid as needed to keep pt comfortable and resting. Pain Management: Assess and treat headache and neck pain. Medications ordered for mild, moderate, and severe pain. Constipation: Rectal suppository or enema every 2-3 days as needed. Overflow incontinence: Carpio catheter to bedside drainage. weakness: PT/OT continue to offer strengthening/evaluation as pt has more periods of being alert/awake. decreased oral intake: IVD'cd Mechanical soft diet as tolerated, when alert. Diabetes with hyperglycemia: Monitor blood sugars. Offer Metformin when alert and able to swallow medication. 05/06/17 Agree with above 1 Subdural hematoma: Ct head repeated on 05/05/17 shows slight increase in the size of the right subdural hematoma maira 10-13mm and also there is a small fluid collection over the left side about 7mm which is new.Pt does seem to be clinically improving and presently is off Iv fluids and tolerating oral diet. I did call , Neurosurgeon personnel records clerk. 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 reassured that happen some time. He did recommend to repeat Ct head in 1 month time from time of injury to make sure the hematoma is resolving( as patient has schizophrenia and is hard to monitor his neurologic status). 2) Neurogenic bladder: Pt has had chronic urinary retention for more than a month. He has been on carpio catheter for urinary drainage. Apparently Pt has not had successful clamping and drainage and her does not void well when off catheter. I have discussed patient with the urologistat [facility] [place]. Dr capellan does agree with this being neurogenic bladder issue , which will cause intermittent retention overflow. Considering his severe schizophrenia and age, Dr. Capellan's recommendation has been to try straight catheterizing this patient as needed. But patient in the past gets agitated when he needs cauterization, but once catheter is in place he does keep the carpio in place. does recommend continuos cauterization, as there is not much option available considering his co-morbid conditions,. Also the cholinergic effect of the antipsychotics he is on can make his neurogenic bladder and urinary retention worse. Per Dr Capellan's recommendation will try keeping patient on continuous cauterization weight the risks and benefits. 05/10/17 Pt is running low grade fever just now, with his dementia and schizophrenia, hard to take any history from patient. No change in status. Clinical exam of patient is normal. refusing tylenol. Will get workup with CBC , UA and chest xray and followup with result. His CBC and Chest xray are normal. UA has not been done. This could be transient elevation of the temperature. Will monitor him closely. If he continues to spike will work it up. 05/20/[address] Thrasher on management of patient. We are in contact with family and Guardian and consensus to keep comfortable and continue current cares and management for agitation as needed and daily cares. Patient does appear to have improved agitation with increased Seroquel dosing. 05/25/17 Patient plan to continue current medications and continue meals as tolerated. Nursing staff have been at bedside feeding patient for meals. Patient has gotten up with PT/OT but only walked a few steps with assistance. He remains in bed most of the day. We will continue to monitor for sore formation and try frequent up to chair and feedings. Patient does respond to feeding and does eat little amounts and does state he is full. Continued f/u with Dr. Thrasher. F/u CT as scheduled in a few weeks. No further changes. 06/15/17 We are continuing comfort cares and monitoring. Patient does eat a few spoonfuls of pureed food at a time. He does appear weaker and more obtund. Continue all comfort care orders and will adjust as needed. 06/22/2017 We will continue comfort care and management. Patient does appear very comfortable and does eat and drink with monitoring from nurses and dietary. 07/13/17 Patient is comfortable and not verbally responsive but does respond to touch. Continue comfort care and management. Eating has decreased.
[2017-07-13] MEDS ORDERED: QUEtiapine Fumarate 200 MG TABLET PO ONE (19:55)
[2017-07-13] MEDS: Citalopram 20 MG Tab PO SCH (20:03)
[2017-07-13] MEDS: Erythromycin Base 0.5% Ophth Oint 3.5 GM Tube EYERT SCH (20:04)
[2017-07-14] MEDS: Acetaminophen 325 MG Tab PO SCH ×2 (12:22→20:53)
[2017-07-14] MEDS: QUEtiapine Fumarate 200 MG TABLET PO SCH ×2 (12:23→17:38)
[2017-07-14] MEDS ORDERED: QUEtiapine Fumarate 200 MG TABLET PO ONE (19:20)
[2017-07-14] MEDS: Citalopram 20 MG Tab PO SCH (20:52)
[2017-07-14] MEDS: Erythromycin Base 0.5% Ophth Oint 3.5 GM Tube EYERT SCH (20:57)
[2017-07-15] MEDS: Acetaminophen/HYDROcodone 325-5 MG Tab PO PRN ×3 (02:13→21:30)
[2017-07-15] MEDS: LORazepam 0.5 MG Tab PO PRN (02:16)
[2017-07-15] MEDS: QUEtiapine Fumarate 200 MG TABLET PO SCH ×2 (12:07→16:43)
[2017-07-15] MEDS: Acetaminophen 325 MG Tab PO SCH ×2 (12:07→20:55)
[2017-07-15] MEDS: Citalopram 20 MG Tab PO SCH (20:55)
[2017-07-15] MEDS: Erythromycin Base 0.5% Ophth Oint 3.5 GM Tube EYERT SCH (20:55)
[2017-07-15] MEDS ORDERED: QUEtiapine Fumarate 200 MG TABLET PO ONE (21:32)
[2017-07-16] MEDS: LORazepam 0.5 MG Tab PO PRN ×3 (00:59→21:30)
[2017-07-16] MEDS: Acetaminophen/HYDROcodone 325-5 MG Tab PO PRN ×2 (12:00→21:30)
[2017-07-16] MEDS: QUEtiapine Fumarate 200 MG TABLET PO SCH ×2 (12:00→17:33)
[2017-07-16] MEDS: Acetaminophen 325 MG Tab PO SCH ×2 (12:18→20:05)
[2017-07-16] MEDS: fentaNYL 25 MCG/HR Transdermal Patch TRDERM SCH (12:31)
[2017-07-16] MEDS ORDERED: QUEtiapine Fumarate 200 MG TABLET PO ONE (19:56)
[2017-07-16] MEDS: Citalopram 20 MG Tab PO SCH (20:01)
[2017-07-16] MEDS: Erythromycin Base 0.5% Ophth Oint 3.5 GM Tube EYERT SCH (20:04)
[2017-07-17] MEDS: QUEtiapine Fumarate 200 MG TABLET PO SCH ×2 (08:12→12:47)
[2017-07-17] MEDS: Acetaminophen 325 MG Tab PO SCH ×2 (08:12→20:18)
[2017-07-17] MEDS: LORazepam 2 MG/ML MDV SUBCUT PRN ×2 (15:24→23:00)
[2017-07-17] MEDS ORDERED: QUEtiapine Fumarate 200 MG TABLET PO ONE (20:13)
[2017-07-17] MEDS: Citalopram 20 MG Tab PO SCH (20:17)
[2017-07-17] MEDS: Acetaminophen/HYDROcodone 325-5 MG Tab PO PRN (20:19)
[2017-07-17] MEDS: Erythromycin Base 0.5% Ophth Oint 3.5 GM Tube EYERT SCH (20:20)
[2017-07-18] MEDS: Acetaminophen 325 MG Tab PO SCH ×2 (09:03→21:38)
[2017-07-18] MEDS: QUEtiapine Fumarate 200 MG TABLET PO SCH ×2 (09:03→12:54)
[2017-07-18] MEDS: Morphine 2 MG/ML Syringe SUBCUT PRN ×3 (15:00→21:40)
[2017-07-18] MEDS ORDERED: QUEtiapine Fumarate 200 MG TABLET PO ONE (20:12)
[2017-07-18] MEDS ORDERED: Acetaminophen/HYDROcodone 325-5 MG Tab ONE (20:20)
[2017-07-18] MEDS ORDERED: LORazepam 2 MG/ML MDV ONE (20:21)
[2017-07-18] MEDS: LORazepam 0.5 MG Tab PO PRN (21:36)
[2017-07-18] MEDS: Erythromycin Base 0.5% Ophth Oint 3.5 GM Tube EYERT SCH (21:37)
[2017-07-18] MEDS: Citalopram 20 MG Tab PO SCH (21:37)
[2017-07-18] MEDS: LORazepam 2 MG/ML MDV SUBCUT PRN (21:38)
[2017-07-18] MEDS: Acetaminophen/HYDROcodone 325-5 MG Tab PO PRN (21:39)
[2017-07-19 10:35] VITALS: BP 131/77
[2017-07-19] MEDS: QUEtiapine Fumarate 200 MG TABLET PO SCH ×2 (10:36→15:26)
[2017-07-19] MEDS: fentaNYL 25 MCG/HR Transdermal Patch TRDERM SCH (11:08)
[2017-07-19] MEDS: Acetaminophen 325 MG Tab PO SCH ×2 (15:25→19:52)
[2017-07-19] MEDS ORDERED: QUEtiapine Fumarate 200 MG TABLET PO ONE (18:57)
[2017-07-19] MEDS: Citalopram 20 MG Tab PO SCH (19:53)
[2017-07-19] MEDS: Acetaminophen/HYDROcodone 325-5 MG Tab PO PRN (19:53)
[2017-07-19] MEDS: Erythromycin Base 0.5% Ophth Oint 3.5 GM Tube EYERT SCH (19:54)
[2017-07-19] MEDS: LORazepam 0.5 MG Tab PO PRN (19:54)
[2017-07-20] MEDS: Acetaminophen/HYDROcodone 325-5 MG Tab PO PRN ×2 (08:07→19:24)
[2017-07-20] MEDS: Acetaminophen 325 MG Tab PO SCH ×2 (08:07→19:23)
[2017-07-20] MEDS: LORazepam 0.5 MG Tab PO PRN ×2 (08:08→19:24)
[2017-07-20] MEDS: QUEtiapine Fumarate 200 MG TABLET PO SCH ×2 (08:08→12:28)
--- NOTE | 2017-07-20 10:46 | PCM.PN ---
- General Info Date of Service: 07/20/17 Subjective Update: This is an 86 yo M who appears comfortable resting in bed. He is not readily arousable but will turn and respond to touch occasionally. He has been on comfort cares and will be discharged to respite care today. Functional Status: Reports: Pain Controlled - Review of Systems General: Reports: Weakness, Other (unable to obtain ROS) - Patient Data Vitals - Most Recent: Last Vital Signs Temp 36.8 C 07/19/17 10:00 Pulse 98 07/19/17 10:00 Resp 17 07/19/17 10:00 BP 131/77 07/19/17 10:00 Pulse Ox 88 L 07/19/17 10:00 Weight - Most Recent: 60.237 kg Med Orders - Current: Current Medications Acetaminophen (Tylenol) 650 mg PO BID [facility] Last Admin: 07/20/17 08:07 Dose: Not Given Hydrocodone Bitart/Acetaminophen ([place] 325-5 Mg) 1 tab PO Q4H PRN PRN Reason: Pain (moderate 4-6) Last Admin: 07/20/17 08:07 Dose: 1 tab Bisacodyl (Dulcolax) 10 mg RECTAL DAILY PRN PRN Reason: Constipation Last Admin: 07/07/17 05:00 Dose: 10 mg Citalopram Hydrobromide (Celexa) 20 mg PO BEDTIME [facility] Last Admin: 07/19/17 19:53 Dose: 20 mg Docusate Sodium (Colace) 100 mg PO BID PRN PRN Reason: constipation Last Admin: 07/12/17 12:40 Dose: 100 mg Erythromycin (Erythromycin 0.5% Ophth Oint) 0 gm EYERT BEDTIME [facility] Last Admin: 07/19/17 19:54 Dose: Not Given Fentanyl (Duragesic) 25 mcg TRDERM Q72H [facility] Last Admin: 07/19/17 11:08 Dose: 25 mcg Lorazepam (Ativan) 0.5 mg PO Q8H PRN PRN Reason: Anxiety Last Admin: 07/20/17 08:08 Dose: 0.5 mg Lorazepam (Ativan) 1 mg SUBCUT Q4H PRN PRN Reason: Anxiety Last Admin: 07/18/17 21:38 Dose: 1 mg Miscellaneous Information (Remove Patch) 1 ea TRDERM ASDIRECTED [facility] Last Admin: 07/10/17 13:30 Dose: 1 ea Morphine Sulfate (Morphine) 2 mg SUBCUT Q4H PRN PRN Reason: Pain Last Admin: 07/18/17 21:40 Dose: 2 mg Metronidazole 0.75% (Cream) 1 applic TOP DAILY [facility] Last Admin: 07/20/17 08:08 Dose: Not Given Quetiapine Fumarate (Quetiapine Fumarate) 200 mg PO DAILY@0800,1200 [facility] Last Admin: 07/20/17 08:08 Dose: 200 mg Quetiapine Fumarate (Seroquel) 50 mg PO DAILY@0800,1200 [facility] Last Admin: 07/20/17 08:08 Dose: 50 mg Quetiapine Fumarate (Seroquel) 400 mg PO BEDTIME [facility] Last Admin: 07/19/17 19:53 Dose: 400 mg Quetiapine Fumarate (Seroquel) 50 mg PO BEDTIME [facility] Last Admin: 07/19/17 19:54 Dose: 50 mg Scopolamine (Transderm-Scop) 1.5 mg TRDERM Q72H PRN PRN Reason: Other Last Admin: 07/02/17 19:44 Dose: 1.5 mg Senna/Docusate Sodium (Senna Plus) 1 tab PO BID [facility] Last Admin: 07/20/17 08:08 Dose: 1 tab Sodium Biphosphate/Sodium Phosphate (Fleet Enema) 133 ml RECTAL ASDIRECTED PRN PRN Reason: Constipation Last Admin: 06/11/17 03:12 Dose: 133 ml Discontinued Medications Acetaminophen (Tylenol) Confirm Administered Dose 325 mg .ROUTE .STK-MED ONE Stop: 05/19/17 08:14 Last Admin: 05/19/17 08:28 Dose: 325 mg Hydrocodone Bitart/Acetaminophen (Uehling 325-5 Mg) 0.5 tab PO Q4H PRN PRN Reason: Pain (moderate 4-6) Last Admin: 05/04/17 13:51 Dose: 0.5 tab Hydrocodone Bitart/Acetaminophen (Uehling 325-5 Mg) Confirm Administered Dose 1 tab .ROUTE .STK-MED ONE Stop: 05/18/17 19:40 Last Admin: 05/18/17 21:39 Dose: Not Given Hydrocodone Bitart/Acetaminophen (U[place]ling 325-5 Mg) Confirm Administered Dose 1 tab .ROUTE .STK-MED ONE Stop: 07/18/17 20:21 Last Admin: 07/18/17 21:38 Dose: Not Given Calamine/Phenol (Calmoseptine) 113 gm TOP .STK-MED ONE Stop: 05/17/17 08:01 Calamine/Phenol (Calmoseptine) 113 gm TOP .STK-MED ONE Stop: 07/10/17 20:01 Calcitonin [place] (Miacalcin Nasal [place]) 0 ml MIKY DAILY [facility] Last Admin: 05/04/17 08:14 Dose: 1 spray Calcitonin [place] (Miacalcin Nasal [place]) 3.7 ml MIKY DAILY [facility] Last Admin: 06/11/17 09:12 Dose: 1 spray Ciprofloxacin (Ciprofloxacin Hcl) 500 mg PO BID [facility] Last Admin: 05/19/17 08:31 Dose: 500 mg Ciprofloxacin (Ciprofloxacin Hcl) Confirm Administered Dose 500 mg .ROUTE .STK- MED ONE Stop: 05/10/17 23:06 Last Admin: 05/10/17 23:12 Dose: 500 mg Fentanyl (Duragesic) 12 mcg TRDERM Q72H [facility] Stop: 06/04/17 08:00 Last Admin: 06/03/17 19:50 Dose: 12 mcg Fentanyl (Duragesic) Confirm Administered Dose 12 mcg .ROUTE .STK-MED ONE Stop: 05/25/17 17:03 Last Admin: 05/25/17 18:33 Dose: Not Given Fentanyl (Duragesic) Confirm Administered Dose 25 mcg .ROUTE .STK-MED ONE Stop: 07/04/17 08:46 Last Admin: 07/04/17 08:52 Dose: Not Given Haloperidol Lactate (Haldol) Confirm Administered Dose 5 mg .ROUTE .STK-MED ONE Stop: 05/01/17 21:31 Last Admin: 05/02/17 03:32 Dose: Not Given Haloperidol Lactate (Haldol) 5 mg IVPUSH ONETIME ONE Stop: 05/01/17 21:01 Last Admin: 05/02/17 02:30 Dose: 2.5 mg Haloperidol Lactate (Haldol) 5 mg IVPUSH ONETIME ONE Stop: 05/06/17 21:26 Last Admin: 05/07/17 06:51 Dose: Not Given Sodium Chloride (Normal Saline) 1,000 mls @ 125 mls/hr IV ASDIRECTED [facility] Last Admin: 05/01/17 10:50 Dose: 125 mls/hr Dextrose/Sodium Chloride (Dextrose 5%-1/2 Ns) 1,000 mls @ 125 mls/hr IV ASDIRECTED [facility] Stop: 05/03/17 00:09 Last Admin: 05/01/17 21:30 Dose: 125 mls/hr Lactated Ringer's (Ringers, Lactated) 1,000 mls @ 250 mls/hr IV ASDIRECTED [facility] Lactated Ringer's (Ringers, Lactated) 1,000 mls @ 200 mls/hr IV ASDIRECTED [facility] Dextrose/Sodium Chloride (Dextrose 5%-1/2 Ns) 1,000 mls @ 150 mls/hr IV ASDIRECTED [facility] Last Admin: 06/05/17 00:22 Dose: 150 mls/hr Insulin Detemir (Levemir) 5 unit SUBCUT BEDTIME [facility] Last Admin: 06/03/17 19:48 Dose: 5 units Insulin Detemir (Levemir) 3 unit SUBCUT Q12HR [facility] Last Admin: 06/11/17 09:18 Dose: 3 unit Lisinopril (Prinivil) 10 mg PO DAILY [facility] Last Admin: 06/11/17 09:14 Dose: 10 mg Lorazepam (Ativan) Confirm Administered Dose 2 mg .ROUTE .STK-MED ONE Stop: 05/01/17 21:31 Last Admin: 05/02/17 03:32 Dose: Not Given Lorazepam (Ativan) 2 mg IVPUSH ONETIME ONE Stop: 05/01/17 21:01 Last Admin: 05/02/17 02:35 Dose: 1 mg Lorazepam (Ativan) Confirm Administered Dose 2 mg .ROUTE .STK-MED ONE Stop: 05/05/17 15:27 Last Admin: 05/05/17 17:48 Dose: Not Given Lorazepam (Ativan) 2 mg IVPUSH ONETIME ONE Stop: 05/05/17 15:50 Last Admin: 05/05/17 15:40 Dose: 2 mg Lorazepam (Ativan) Confirm Administered Dose 2 mg .ROUTE .STK-MED ONE Stop: 05/10/17 19:09 Last Admin: 05/10/17 19:10 Dose: 2 mg Lorazepam (Ativan) 1 mg IVPUSH Q4H PRN PRN Reason: Anxiety Last Admin: 06/25/17 20:10 Dose: 1 mg Lorazepam (Ativan) Confirm Administered Dose 2 mg .ROUTE .STK-MED ONE Stop: 07/18/17 20:22 Last Admin: 07/18/17 21:38 Dose: Not Given Magnesium Hydroxide (Milk Of Magnesia) Confirm Administered Dose 30 ml .ROUTE .STK-MED ONE Stop: 05/16/17 10:03 Last Admin: 05/16/17 08:30 Dose: 30 ml Magnesium Hydroxide (Milk Of Magnesia) Confirm Administered Dose 30 ml .ROUTE .STK-MED ONE Stop: 05/27/17 22:46 Last Admin: 05/28/17 06:25 Dose: 30 ml Metformin HCl (Glucophage) 250 mg PO BID [facility] Last Admin: 05/09/17 21:03 Dose: Not Given Metformin HCl (Glucophage) 250 mg PO BIDMEALS [facility] Last Admin: 06/02/17 08:49 Dose: 250 mg Morphine Sulfate (Morphine) 2 mg IVPUSH Q2H PRN PRN Reason: Pain (severe 7-10) Last Admin: 06/25/17 20:10 Dose: 2 mg Morphine Sulfate (Morphine) 2 mg SUBCUT Q2H PRN PRN Reason: Pain (severe 7-10) Last Admin: 07/07/17 07:26 Dose: 2 mg Morphine Sulfate (Morphine) 2 mg IVPUSH Q2H PRN PRN Reason: Pain Last Admin: 07/01/17 07:30 Dose: 2 mg Non-Formulary Medication (Quetiapine [Seroquel Xr]) 1 tab PO ACLUNCH [facility] Quetiapine Fumarate (Seroquel) 200 mg PO BID@0700,1100 [facility] Last Admin: 05/03/17 07:32 Dose: Not Given Quetiapine Fumarate (Seroquel) 450 mg PO DAILY@2000 [facility] Last Admin: 05/28/17 20:05 Dose: 400 mg Quetiapine Fumarate (Seroquel) 200 mg PO DAILY@0700,1100 [facility] Last Admin: 05/10/17 21:46 Dose: Not Given Quetiapine Fumarate (Seroquel) 400 mg PO BEDTIME [facility] Last Admin: 07/11/17 20:15 Dose: 400 mg Quetiapine Fumarate (Seroquel) 50 mg PO BEDTIME [facility] Last Admin: 05/10/17 20:41 Dose: 50 mg Quetiapine Fumarate (Seroquel) Confirm Administered Dose 400 mg .ROUTE .STK-MED ONE Stop: 05/03/17 19:38 Last Admin: 05/04/17 00:57 Dose: Not Given Quetiapine Fumarate (Seroquel) Confirm Administered Dose 200 mg .ROUTE .STK-MED ONE Stop: 05/10/17 08:02 Last Admin: 05/10/17 20:41 Dose: Not Given Quetiapine Fumarate (Seroquel) 250 mg PO 0700,1100 [facility] Last Admin: 05/12/17 06:43 Dose: 250 mg Quetiapine Fumarate (Seroquel) 450 mg PO BEDTIME [facility] Last Admin: 05/26/17 19:49 Dose: 450 mg Quetiapine Fumarate (Seroquel) Confirm Administered Dose 50 mg .ROUTE .STK-MED ONE Stop: 05/11/17 06:54 Last Admin: 05/11/17 11:55 Dose: Not Given Quetiapine Fumarate (Seroquel) 200 mg PO DAILY@0700,1100 [facility] Last Admin: 05/27/17 08:03 Dose: 200 mg Quetiapine Fumarate (Seroquel) 50 mg PO DAILY@0700,1100 [facility] Last Admin: 05/27/17 08:03 Dose: 50 mg Quetiapine Fumarate (Seroquel) Confirm Administered Dose 50 mg .ROUTE .STK-MED ONE Stop: 05/14/17 13:32 Last Admin: 05/14/17 13:35 Dose: Not Given Quetiapine Fumarate (Seroquel) Confirm Administered Dose 50 mg .ROUTE .STK-MED ONE Stop: 05/20/17 19:39 Last Admin: 05/20/17 21:26 Dose: 50 mg Quetiapine Fumarate (Seroquel) Confirm Administered Dose 50 mg .ROUTE .STK-MED ONE Stop: 05/22/17 19:54 Last Admin: 05/22/17 21:02 Dose: Not Given Quetiapine Fumarate (Seroquel) Confirm Administered Dose 50 mg .ROUTE .STK-MED ONE Stop: 05/24/17 19:28 Last Admin: 05/24/17 19:41 Dose: Not Given Quetiapine Fumarate (Seroquel) Confirm Administered Dose 50 mg .ROUTE .STK-MED ONE Stop: 05/25/17 20:09 Last Admin: 05/25/17 20:39 Dose: Not Given Quetiapine Fumarate (Seroquel) Confirm Administered Dose 50 mg .ROUTE .STK-MED ONE Stop: 05/26/17 18:48 Last Admin: 05/26/17 19:42 Dose: Not Given Quetiapine Fumarate (Quetiapine Fumarate) Confirm Administered Dose 400 mg PO .STK-MED ONE Stop: 05/26/17 19:37 Last Admin: 05/26/17 19:43 Dose: Not Given Quetiapine Fumarate (Quetiapine Fumarate) 200 mg PO DAILY@0700,1100 [facility] Last Admin: 06/21/17 07:51 Dose: 200 mg Quetiapine Fumarate (Seroquel) 50 mg PO DAILY@0700,1100 [facility] Last Admin: 06/21/17 07:51 Dose: 50 mg Quetiapine Fumarate (Seroquel) 400 mg PO BEDTIME [facility] Last Admin: 07/01/17 20:29 Dose: 400 mg Quetiapine Fumarate (Seroquel) 50 mg PO BEDTIME [facility] Last Admin: 07/01/17 20:29 Dose: 50 mg Quetiapine Fumarate (Quetiapine Fumarate) Confirm Administered Dose 400 mg PO .STK-MED ONE Stop: 05/27/17 19:18 Last Admin: 05/27/17 19:28 Dose: Not Given Quetiapine Fumarate (Quetiapine Fumarate) Confirm Administered Dose 400 mg PO .STK-MED ONE Stop: 06/01/17 19:29 Last Admin: 06/01/17 19:54 Dose: Not Given Quetiapine Fumarate (Quetiapine Fumarate) Confirm Administered Dose 400 mg PO .STK-MED ONE Stop: 06/02/17 19:47 Last Admin: 06/02/17 20:02 Dose: Not Given Quetiapine Fumarate (Quetiapine Fumarate) Confirm Administered Dose 400 mg PO .STK-MED ONE Stop: 06/03/17 19:38 Last Admin: 06/03/17 19:47 Dose: Not Given Quetiapine Fumarate (Quetiapine Fumarate) Confirm Administered Dose 400 mg PO .STK-MED ONE Stop: 06/04/17 20:38 Last Admin: 06/04/17 23:12 Dose: Not Given Quetiapine Fumarate (Quetiapine Fumarate) Confirm Administered Dose 400 mg PO .STK-MED ONE Stop: 06/05/17 19:39 Last Admin: 06/05/17 20:45 Dose: Not Given Quetiapine Fumarate (Quetiapine Fumarate) Confirm Administered Dose 400 mg PO .STK-MED ONE Stop: 06/06/17 19:30 Last Admin: 06/06/17 20:36 Dose: Not Given Quetiapine Fumarate (Seroquel) Confirm Administered Dose 50 mg .ROUTE .STK-MED ONE Stop: 06/07/17 19:07 Last Admin: 06/07/17 21:33 Dose: Not Given Quetiapine Fumarate (Quetiapine Fumarate) Confirm Administered Dose 400 mg PO .STK-MED ONE Stop: 06/07/17 19:07 Last Admin: 06/07/17 21:32 Dose: Not Given Quetiapine Fumarate (Seroquel) Confirm Administered Dose 50 mg .ROUTE .STPebbles Interfaces-MED ONE Stop: 06/08/17 06:00 Last Admin: 06/08/17 06:12 Dose: Not Given Quetiapine Fumarate (Seroquel) Confirm Administered Dose 50 mg .ROUTE .[email or web address] ONE Stop: 06/08/17 10:15 Last Admin: 06/08/17 10:18 Dose: Not Given Quetiapine Fumarate (Quetiapine Fumarate) Confirm Administered Dose 400 mg PO .STPebbles Interfaces-MED ONE Stop: 06/08/17 19:00 Last Admin: 06/08/17 19:32 Dose: Not Given Quetiapine Fumarate (Quetiapine Fumarate) Confirm Administered Dose 400 mg PO .STPebbles Interfaces-MED ONE Stop: 06/09/17 21:28 Last Admin: 06/09/17 21:57 Dose: Not Given Quetiapine Fumarate (Quetiapine Fumarate) Confirm Administered Dose 400 mg PO .STPebbles Interfaces-MED ONE Stop: 06/10/17 19:36 Last Admin: 06/10/17 19:39 Dose: Not Given Quetiapine Fumarate (Quetiapine Fumarate) Confirm Administered Dose 400 mg PO .STPebbles Interfaces-MED ONE Stop: 06/11/17 19:31 Last Admin: 06/11/17 19:43 Dose: Not Given Quetiapine Fumarate (Quetiapine Fumarate) Confirm Administered Dose 400 mg PO .STPebbles Interfaces-MED ONE Stop: 06/12/17 19:22 Last Admin: 06/12/17 19:31 Dose: Not Given Quetiapine Fumarate (Quetiapine Fumarate) Confirm Administered Dose 400 mg PO .STK-MED ONE Stop: 06/14/17 20:19 Last Admin: 06/14/17 21:11 Dose: Not Given Quetiapine Fumarate (Quetiapine Fumarate) Confirm Administered Dose 400 mg PO .STK-MED ONE Stop: 06/15/17 19:12 Last Admin: 06/15/17 19:18 Dose: Not Given Quetiapine Fumarate (Quetiapine Fumarate) Confirm Administered Dose 400 mg PO .STK-MED ONE Stop: 06/16/17 20:27 Last Admin: 06/16/17 20:47 Dose: Not Given Quetiapine Fumarate (Quetiapine Fumarate) Confirm Administered Dose 400 mg PO .STPebbles Interfaces-MED ONE Stop: 06/17/17 19:30 Last Admin: 06/17/17 20:54 Dose: Not Given Quetiapine Fumarate (Quetiapine Fumarate) Confirm Administered Dose 400 mg PO .STPebbles Interfaces-MED ONE Stop: 06/20/17 19:56 Last Admin: 06/20/17 20:11 Dose: Not Given Quetiapine Fumarate (Quetiapine Fumarate) Confirm Administered Dose 400 mg PO .STPebbles Interfaces-MED ONE Stop: 06/21/17 19:39 Last Admin: 06/21/17 19:46 Dose: Not Given Quetiapine Fumarate (Quetiapine Fumarate) Confirm Administered Dose 400 mg PO .STPebbles Interfaces-MED ONE Stop: 06/22/17 21:29 Last Admin: 06/23/17 08:16 Dose: Not Given Quetiapine Fumarate (Quetiapine Fumarate) Confirm Administered Dose 400 mg PO .STPebbles Interfaces-MED ONE Stop: 06/24/17 19:24 Last Admin: 06/25/17 07:04 Dose: Not Given Quetiapine Fumarate (Quetiapine Fumarate) Confirm Administered Dose 400 mg PO .STPebbles Interfaces-MED ONE Stop: 06/25/17 20:03 Last Admin: 06/25/17 20:00 Dose: Not Given Quetiapine Fumarate (Quetiapine Fumarate) Confirm Administered Dose 400 mg PO .STPebbles Interfaces-MED ONE Stop: 06/26/17 19:14 Last Admin: 06/26/17 20:00 Dose: Not Given Quetiapine Fumarate (Quetiapine Fumarate) Confirm Administered Dose 400 mg PO .STPebbles Interfaces-MED ONE Stop: 06/27/17 19:57 Last Admin: 06/27/17 20:00 Dose: Not Given Quetiapine Fumarate (Quetiapine Fumarate) Confirm Administered Dose 200 mg PO .STK-MED ONE Stop: 06/28/17 19:12 Last Admin: 06/28/17 19:23 Dose: Not Given Quetiapine Fumarate (Quetiapine Fumarate) Confirm Administered Dose 200 mg PO .STK-MED ONE Stop: 06/28/17 19:19 Last Admin: 06/28/17 20:14 Dose: Not Given Quetiapine Fumarate (Quetiapine Fumarate) Confirm Administered Dose 400 mg PO .STK-MED ONE Stop: 06/30/17 19:18 Last Admin: 06/30/17 19:52 Dose: Not Given Quetiapine Fumarate (Quetiapine Fumarate) Confirm Administered Dose 400 mg PO .STK-MED ONE Stop: 07/01/17 19:35 Last Admin: 07/01/17 20:29 Dose: Not Given Quetiapine Fumarate (Quetiapine Fumarate) Confirm Administered Dose 400 mg PO .STK-MED ONE Stop: 07/03/17 19:54 Last Admin: 07/04/17 03:53 Dose: 400 mg Quetiapine Fumarate (Quetiapine Fumarate) Confirm Administered Dose 400 mg PO .STK-MED ONE Stop: 07/04/17 20:32 Last Admin: 07/04/17 20:36 Dose: Not Given Quetiapine Fumarate (Quetiapine Fumarate) Confirm Administered Dose 400 mg PO .STK-MED ONE Stop: 07/05/17 19:33 Last Admin: 07/05/17 19:36 Dose: Not Given Quetiapine Fumarate (Quetiapine Fumarate) Confirm Administered Dose 400 mg PO .STK-MED ONE Stop: 07/06/17 20:10 Last Admin: 07/06/17 21:42 Dose: 400 mg Quetiapine Fumarate (Quetiapine Fumarate) Confirm Administered Dose 400 mg PO .STK-MED ONE Stop: 07/07/17 19:34 Last Admin: 07/07/17 22:12 Dose: Not Given Quetiapine Fumarate (Quetiapine Fumarate) Confirm Administered Dose 400 mg PO .STK-MED ONE Stop: 07/08/17 19:15 Last Admin: 07/09/17 00:03 Dose: Not Given Quetiapine Fumarate (Quetiapine Fumarate) Confirm Administered Dose 400 mg PO .STK-MED ONE Stop: 07/09/17 19:58 Last Admin: 07/09/17 20:55 Dose: Not Given Quetiapine Fumarate (Quetiapine Fumarate) Confirm Administered Dose 400 mg PO .STK-MED ONE Stop: 07/12/17 20:13 Last Admin: 07/12/17 23:11 Dose: Not Given Quetiapine Fumarate (Quetiapine Fumarate) Confirm Administered Dose 400 mg PO .STK-MED ONE Stop: 07/13/17 19:56 Last Admin: 07/13/17 20:02 Dose: 400 mg Quetiapine Fumarate (Quetiapine Fumarate) Confirm Administered Dose 400 mg PO .STK-MED ONE Stop: 07/14/17 19:21 Last Admin: 07/14/17 20:52 Dose: 400 mg Quetiapine Fumarate (Quetiapine Fumarate) Confirm Administered Dose 200 mg PO .STK-MED ONE Stop: 07/15/17 21:33 Last Admin: 07/17/17 09:31 Dose: Not Given Quetiapine Fumarate (Quetiapine Fumarate) Confirm Administered Dose 400 mg PO .STK-MED ONE Stop: 07/16/17 19:57 Last Admin: 07/17/17 03:00 Dose: Not Given Quetiapine Fumarate (Quetiapine Fumarate) Confirm Administered Dose 400 mg PO .STPebbles Interfaces-MED ONE Stop: 07/17/17 20:14 Last Admin: 07/17/17 22:48 Dose: Not Given Quetiapine Fumarate (Quetiapine Fumarate) Confirm Administered Dose 400 mg PO .STK-MED ONE Stop: 07/18/17 20:13 Last Admin: 07/18/17 21:38 Dose: Not Given Quetiapine Fumarate (Quetiapine Fumarate) Confirm Administered Dose 400 mg PO .STK-MED ONE Stop: 07/19/17 18:58 Last Admin: 07/19/17 19:43 Dose: Not Given Sodium Chloride (Saline Flush) 10 ml FLUSH BID [facility] Last Admin: 06/24/17 13:13 Dose: Not Given Trimethoprim/Sulfamethoxazole (Septra Ds) 1 tab PO BID [facility] Stop: 06/03/17 23:59 Last Admin: 06/03/17 19:47 Dose: 1 tab Tuberculin PPD (Aplisol) 5 unit IDERM ONETIME ONE Stop: 04/30/17 16:28 - Exam General: Obtunded Lungs: Rales Cardiovascular: Regular Rate, Regular Rhythm GI/Abdominal Exam: Abnormal Bowel Sounds (decreased Bowel sounds) Extremities: Other (thinning arms and legs, no sores) Skin: Warm, Dry, Intact Neurological: No New Focal Deficit - Problem List & Annotations (1) Subdural hemorrhage following injury SNOMED Code(s): 336522041 Code(s): S06.5X9A - TRAUM SUBDR HEM W LOC OF UNSP DURATION, INIT Status: Chronic Priority: High Current Visit: Yes Qualifiers: Encounter type: subsequent encounter Loss of consciousness presence/ duration: without LOC Qualified Code(s): S06.5X0D - Traumatic subdural hemorrhage without loss of consciousness, subsequent encounter (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 Code(s): F03.91 - UNSPECIFIED DEMENTIA WITH BEHAVIORAL DISTURBANCE Status: Chronic Priority: High Current Visit: Yes Qualifiers: Dementia behavioral disturbance: with behavioral disturbance Qualified Code (s): F02.81 - Dementia in other diseases classified elsewhere with behavioral disturbance (3) Paranoid schizophrenia, chronic condition SNOMED Code(s): 73421473 Code(s): F20.0 - PARANOID SCHIZOPHRENIA Status: Chronic Priority: High Current Visit: Yes (4) Diabetes mellitus SNOMED Code(s): 49544780 Code(s): E11.9 - TYPE 2 DIABETES MELLITUS WITHOUT COMPLICATIONS Status: Chronic Priority: Medium Current Visit: Yes Qualifiers: Diabetes mellitus type: type 2 Diabetes mellitus complication status: with hyperglycemia Diabetes mellitus vermin exterminator insulin use: without shelter use Qualified Code(s): E11.65 - Type 2 diabetes mellitus with hyperglycemia (5) Neurogenic bladder SNOMED Code(s): 555100186 Code(s): N31.9 - NEUROMUSCULAR DYSFUNCTION OF BLADDER, UNSPECIFIED Status: Acute Current Visit: Yes (6) Palliative care patient SNOMED Code(s): 064985502 Code(s): Z51.5 - ENCOUNTER FOR PALLIATIVE CARE Status: Acute Priority: High Current Visit: Yes (7) Comfort measures only status SNOMED Code(s): 50607798870002 Code(s): Z51.5 - ENCOUNTER FOR PALLIATIVE CARE Status: Acute Priority: High Current Visit: Yes - Problem List Review Problem List Initiated/Reviewed/Updated: Yes - Assessment Assessment:: Fever - Plan Plan:: Pt admit to swing bed for adjustment of psych. medications, pain management, constipation, overflow incontinence, strengthening, and decrease in intake. Dementia and adjustment of psych medications: Administer medications as pt tolerates, May crush and give in soft foods. With periods of agitation, start Ativan 0.5 mg tid as needed to keep pt comfortable and resting. Pain Management: Assess and treat headache and neck pain. Medications ordered for mild, moderate, and severe pain. Constipation: Rectal suppository or enema every 2-3 days as needed. Overflow incontinence: Carpio catheter to bedside drainage. weakness: PT/OT continue to offer strengthening/evaluation as pt has more periods of being alert/awake. decreased oral intake: IVD'cd Mechanical soft diet as tolerated, when alert. Diabetes with hyperglycemia: Monitor blood sugars. Offer Metformin when alert and able to swallow medication. 05/06/17 Agree with above 1 Subdural hematoma: Ct head repeated on 05/05/17 shows slight increase in the size of the right subdural hematoma maira 10-13mm and also there is a small fluid collection over the left side about 7mm which is new.Pt does seem to be clinically improving and presently is off Iv fluids and tolerating oral diet. I did call , Neurosurgeon compensation associate. 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 reassured that happen some time. He did recommend to repeat Ct head in 1 month time from time of injury to make sure the hematoma is resolving( as patient has schizophrenia and is hard to monitor his neurologic status). 2) Neurogenic bladder: Pt has had chronic urinary retention for more than a month. He has been on carpio catheter for urinary drainage. Apparently Pt has not had successful clamping and drainage and her does not void well when off catheter. I have discussed patient with the urologistat Curtis Wilkerson. Dr capellan does agree with this being neurogenic bladder issue , which will cause intermittent retention overflow. Considering his severe schizophrenia and age, Dr. Capellan's recommendation has been to try straight catheterizing this patient as needed. But patient in the past gets agitated when he needs cauterization, but once catheter is in place he does keep the carpio in place. does recommend continuos cauterization, as there is not much option available considering his co-morbid conditions,. Also the cholinergic effect of the antipsychotics he is on can make his neurogenic bladder and urinary retention worse. Per Dr Capellan's recommendation will try keeping patient on continuous cauterization weight the risks and benefits. 05/10/17 Pt is running low grade fever just now, with his dementia and schizophrenia, hard to take any history from patient. No change in status. Clinical exam of patient is normal. refusing tylenol. Will get workup with CBC , UA and chest xray and followup with result. His CBC and Chest xray are normal. UA has not been done. This could be transient elevation of the temperature. Will monitor him closely. If he continues to spike will work it up. 05/20/[address] Thrasher on management of patient. We are in contact with family and Guardian and consensus to keep comfortable and continue current cares and management for agitation as needed and daily cares. Patient does appear to have improved agitation with increased Seroquel dosing. 05/25/17 Patient plan to continue current medications and continue meals as tolerated. Nursing staff have been at bedside feeding patient for meals. Patient has gotten up with PT/OT but only walked a few steps with assistance. He remains in bed most of the day. We will continue to monitor for sore formation and try frequent up to chair and feedings. Patient does respond to feeding and does eat little amounts and does state he is full. Continued f/u with Dr. Thrasher. F/u CT as scheduled in a few weeks. No further changes. 06/15/17 We are continuing comfort cares and monitoring. Patient does eat a few spoonfuls of pureed food at a time. He does appear weaker and more obtund. Continue all comfort care orders and will adjust as needed. 06/22/2017 We will continue comfort care and management. Patient does appear very comfortable and does eat and drink with monitoring from nurses and dietary. 07/13/17 Patient is comfortable and not verbally responsive but does respond to touch. Continue comfort care and management. Eating has decreased. 07/20/17 patient to be discharged to [facility]pite care for comfort care.
[2017-07-20] MEDS: LORazepam 2 MG/ML MDV SUBCUT PRN (16:26)
[2017-07-20] MEDS ORDERED: QUEtiapine Fumarate 200 MG TABLET PO ONE (19:20)
[2017-07-20] MEDS: Citalopram 20 MG Tab PO SCH (19:24)
[2017-07-20] MEDS: Erythromycin Base 0.5% Ophth Oint 3.5 GM Tube EYERT SCH (19:25)
[2017-07-21] MEDS: QUEtiapine Fumarate 200 MG TABLET PO SCH (07:06)
[2017-07-21] MEDS: Acetaminophen 325 MG Tab PO SCH (07:07)
--- NOTE | 2017-07-21 08:44 | PCM.DCSUM1 ---
Discharge Summary - Discharge Data Discharge Date: 07/20/17 Discharge Disposition: DC/Tfer to Other 70 Condition: Stable - Discharge Diagnosis/Problem(s) (1) Subdural hemorrhage following injury SNOMED Code(s): 406135359 ICD Code: S06.5X9A - TRAUM SUBDR HEM W LOC OF UNSP DURATION, INIT Status: Chronic Priority: High Current Visit: Yes Qualifiers: Encounter type: subsequent encounter Loss of consciousness presence/ duration: without LOC Qualified Code(s): S06.5X0D - Traumatic subdural hemorrhage without loss of consciousness, subsequent encounter (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 ICD Code: F03.91 - UNSPECIFIED DEMENTIA WITH BEHAVIORAL DISTURBANCE Status: Chronic Priority: High Current Visit: Yes Qualifiers: Dementia behavioral disturbance: with behavioral disturbance Qualified Code (s): F02.81 - Dementia in other diseases classified elsewhere with behavioral disturbance (3) Paranoid schizophrenia, chronic condition SNOMED Code(s): 39257322 ICD Code: F20.0 - PARANOID SCHIZOPHRENIA Status: Chronic Priority: High Current Visit: Yes (4) Diabetes mellitus SNOMED Code(s): 80369053 ICD Code: E11.9 - TYPE 2 DIABETES MELLITUS WITHOUT COMPLICATIONS Status: Chronic Priority: Medium Current Visit: Yes Qualifiers: Diabetes mellitus type: type 2 Diabetes mellitus complication status: with hyperglycemia Diabetes mellitus rat exterminator insulin use: without rat exterminator use Qualified Code(s): E11.65 - Type 2 diabetes mellitus with hyperglycemia (5) Neurogenic bladder SNOMED Code(s): 326571259 ICD Code: N31.9 - NEUROMUSCULAR DYSFUNCTION OF BLADDER, UNSPECIFIED Status : Acute Current Visit: Yes (6) Palliative care patient SNOMED Code(s): 906898602 ICD Code: Z51.5 - ENCOUNTER FOR PALLIATIVE CARE Status: Acute Priority: High Current Visit: Yes (7) Comfort measures only status SNOMED Code(s): 08495656487581 ICD Code: Z51.5 - ENCOUNTER FOR PALLIATIVE CARE Status: Acute Priority: High Current Visit: Yes - Patient Summary/Data Consults: Consultations 04/30/17 16:06 OT Evaluation and Treatment [CONS] Routine Please Evaluate and Treat. OT Reason for Consult: Strengthening This query below is only for informational purposes and is not editable. PT Evaluation and Treatment [CONS] Routine Please Evaluate and Treat. PT Reason for Consult: Strengthening This query below is only for informational purposes and is not editable. - Discharge Plan Prescriptions/Med Rec: LORazepam [Ativan] 1 mg SUBCUT Q4HR PRN 30 Days #180 mdv PRN Reason: Anxiety LORazepam [Ativan] 0.5 mg PO Q8HR PRN 30 Days #90 tablet PRN Reason: Anxiety Acetaminophen [Tylenol] 650 mg PO BID 30 Days tablet Acetaminophen/HYDROcodone [[place] 325-5 MG] 1 tab PO Q4H PRN 30 Days #180 tab PRN Reason: Pain Bisacodyl [Dulcolax] 10 mg RC DAILY PRN 30 Days #30 supp.rect PRN Reason: Constipation Docusate Sodium/Sennosides [Senna Plus] 1 each PO BID 30 Days #60 tab fentaNYL [Duragesic] 25 mcg TRDERM Q72H 30 Days #10 patch Scopolamine [Transderm-Scop] 1 patch TD Q3D PRN 30 Days #10 patch PRN Reason: Other Home Medications: Home Meds Acetaminophen [Tylenol] 650 mg PO BID 04/10/17 [History] Citalopram Hydrobromide [Citalopram HBr] 20 mg PO BEDTIME 04/10/17 [History] Erythromycin Base [Erythromycin] 1 applic TOP BEDTIME 04/10/17 [History] QUEtiapine [SEROquel] 450 mg PO BEDTIME 04/10/17 [History] metroNIDAZOLE [metroNIDAZOLE 0.75% Cream] 1 applic TOP DAILY 04/10/17 [History] QUEtiapine Fumarate [Seroquel] 200 mg PO ACBREAKFAST 04/13/17 [History] QUEtiapine [SEROquel XR] 200 tab PO ACLUNCH 04/13/17 [History] Acetaminophen [Tylenol] 650 mg PO BID 30 Days tablet 07/19/17 [Rx] Acetaminophen/HYDROcodone [[place] 325-5 MG] 1 tab PO Q4H PRN 30 Days #180 tab 08/23 [Rx] Bisacodyl [Dulcolax] 10 mg RC DAILY PRN 30 Days #30 supp.rect 07/19/17 [Rx] Docusate Sodium/Sennosides [Senna Plus] 1 each PO BID 30 Days #60 tab 07/19/17 [ Rx] LORazepam [Ativan] 0.5 mg PO Q8HR PRN 30 Days #90 tablet 07/19/17 [Rx] LORazepam [Ativan] 1 mg SUBCUT Q4HR PRN 30 Days #180 mdv 07/19/17 [Rx] Scopolamine [Transderm-Scop] 1 patch TD Q3D PRN 30 Days #10 patch 07/19/17 [Rx] fentaNYL [Duragesic] 25 mcg TRDERM Q72H 30 Days #10 patch 07/19/17 [Rx] Docusate Sodium/Sennosides [Senna Plus] 1 tab PO BID 07/20/17 [History] - Discharge Summary/Plan Comment DC Time >30 min.: Yes Discharge Summary/Plan Comment: Patient to be discharged to respite care for comfort cares. No changes to medications at this time. - Patient Data Vitals - Most Recent: Last Vital Signs Temp 36.8 C 07/19/17 10:00 Pulse 98 07/19/17 10:00 Resp 17 07/19/17 10:00 BP 131/77 07/19/17 10:00 Pulse Ox 88 L 07/19/17 10:00 Weight - Most Recent: 60.237 kg Med Orders - Current: Current Medications Acetaminophen (Tylenol) 650 mg PO BID [facility] Last Admin: 07/21/17 07:07 Dose: 650 mg Hydrocodone Bitart/Acetaminophen ([place] 325-5 Mg) 1 tab PO Q4H PRN PRN Reason: Pain (moderate 4-6) Last Admin: 07/20/17 19:24 Dose: 1 tab Bisacodyl (Dulcolax) 10 mg RECTAL DAILY PRN PRN Reason: Constipation Last Admin: 07/07/17 05:00 Dose: 10 mg Citalopram Hydrobromide (Celexa) 20 mg PO BEDTIME [facility] Last Admin: 07/20/17 19:24 Dose: 20 mg Docusate Sodium (Colace) 100 mg PO BID PRN PRN Reason: constipation Last Admin: 07/12/17 12:40 Dose: 100 mg Erythromycin (Erythromycin 0.5% Ophth Oint) 0 gm EYERT BEDTIME [facility] Last Admin: 07/20/17 19:25 Dose: Not Given Fentanyl (Duragesic) 25 mcg TRDERM Q72H [facility] Last Admin: 07/19/17 11:08 Dose: 25 mcg Lorazepam (Ativan) 0.5 mg PO Q8H PRN PRN Reason: Anxiety Last Admin: 07/20/17 19:24 Dose: 0.5 mg Lorazepam (Ativan) 1 mg SUBCUT Q4H PRN PRN Reason: Anxiety Last Admin: 07/20/17 16:26 Dose: 1 mg Miscellaneous Information (Remove Patch) 1 ea TRDERM ASDIRECTED [facility] Last Admin: 07/10/17 13:30 Dose: 1 ea Morphine Sulfate (Morphine) 2 mg SUBCUT Q4H PRN PRN Reason: Pain Last Admin: 07/18/17 21:40 Dose: 2 mg Metronidazole 0.75% (Cream) 1 applic TOP DAILY [facility] Last Admin: 07/21/17 07:19 Dose: 1 applic Quetiapine Fumarate (Quetiapine Fumarate) 200 mg PO DAILY@0800,1200 [facility] Last Admin: 07/21/17 07:06 Dose: 200 mg Quetiapine Fumarate (Seroquel) 50 mg PO DAILY@0800,1200 [facility] Last Admin: 07/21/17 07:06 Dose: 50 mg Quetiapine Fumarate (Seroquel) 400 mg PO BEDTIME [facility] Last Admin: 07/20/17 19:23 Dose: 400 mg Quetiapine Fumarate (Seroquel) 50 mg PO BEDTIME [facility] Last Admin: 07/20/17 19:24 Dose: 50 mg Scopolamine (Transderm-Scop) 1.5 mg TRDERM Q72H PRN PRN Reason: Other Last Admin: 07/02/17 19:44 Dose: 1.5 mg Senna/Docusate Sodium (Senna Plus) 1 tab PO BID [facility] Last Admin: 07/21/17 07:06 Dose: 1 tab Senna/Docusate Sodium (Senna Plus) 1 tab PO BID [facility] Sodium Biphosphate/Sodium Phosphate (Fleet Enema) 133 ml RECTAL ASDIRECTED PRN PRN Reason: Constipation Last Admin: 06/11/17 03:12 Dose: 133 ml Discontinued Medications Acetaminophen (Tylenol) Confirm Administered Dose 325 mg .ROUTE .STK-MED ONE Stop: 05/19/17 08:14 Last Admin: 05/19/17 08:28 Dose: 325 mg Hydrocodone Bitart/Acetaminophen ([place] 325-5 Mg) 0.5 tab PO Q4H PRN PRN Reason: Pain (moderate 4-6) Last Admin: 05/04/17 13:51 Dose: 0.5 tab Hydrocodone Bitart/Acetaminophen ([place] 325-5 Mg) Confirm Administered Dose 1 tab .ROUTE .STK-MED ONE Stop: 05/18/17 19:40 Last Admin: 05/18/17 21:39 Dose: Not Given Hydrocodone Bitart/Acetaminophen ([place] 325-5 Mg) Confirm Administered Dose 1 tab .ROUTE .STK-MED ONE Stop: 07/18/17 20:21 Last Admin: 07/18/17 21:38 Dose: Not Given Calamine/Phenol (Calmoseptine) 113 gm TOP .STK-MED ONE Stop: 05/17/17 08:01 Calamine/Phenol (Calmoseptine) 113 gm TOP .STK-MED ONE Stop: 07/10/17 20:01 Calcitonin [place] (Miacalcin Nasal [place]) 0 ml MIKY DAILY [facility] Last Admin: 05/04/17 08:14 Dose: 1 spray Calcitonin [place] (Miacalcin Nasal [place]) 3.7 ml MIKY DAILY [facility] Last Admin: 06/11/17 09:12 Dose: 1 spray Ciprofloxacin (Ciprofloxacin Hcl) 500 mg PO BID [facility] Last Admin: 05/19/17 08:31 Dose: 500 mg Ciprofloxacin (Ciprofloxacin Hcl) Confirm Administered Dose 500 mg .ROUTE .STK- MED ONE Stop: 05/10/17 23:06 Last Admin: 05/10/17 23:12 Dose: 500 mg Fentanyl (Duragesic) 12 mcg TRDERM Q72H [facility] Stop: 06/04/17 08:00 Last Admin: 06/03/17 19:50 Dose: 12 mcg Fentanyl (Duragesic) Confirm Administered Dose 12 mcg .ROUTE .STK-MED ONE Stop: 05/25/17 17:03 Last Admin: 05/25/17 18:33 Dose: Not Given Fentanyl (Duragesic) Confirm Administered Dose 25 mcg .ROUTE .STK-MED ONE Stop: 07/04/17 08:46 Last Admin: 07/04/17 08:52 Dose: Not Given Haloperidol Lactate (Haldol) Confirm Administered Dose 5 mg .ROUTE .STK-MED ONE Stop: 05/01/17 21:31 Last Admin: 05/02/17 03:32 Dose: Not Given Haloperidol Lactate (Haldol) 5 mg IVPUSH ONETIME ONE Stop: 05/01/17 21:01 Last Admin: 05/02/17 02:30 Dose: 2.5 mg Haloperidol Lactate (Haldol) 5 mg IVPUSH ONETIME ONE Stop: 05/06/17 21:26 Last Admin: 05/07/17 06:51 Dose: Not Given Sodium Chloride (Normal Saline) 1,000 mls @ 125 mls/hr IV ASDIRECTED [facility] Last Admin: 05/01/17 10:50 Dose: 125 mls/hr Dextrose/Sodium Chloride (Dextrose 5%-1/2 Ns) 1,000 mls @ 125 mls/hr IV ASDIRECTED [facility] Stop: 05/03/17 00:09 Last Admin: 05/01/17 21:30 Dose: 125 mls/hr Lactated Ringer's (Ringers, Lactated) 1,000 mls @ 250 mls/hr IV ASDIRECTED [facility] Lactated Ringer's (Ringers, Lactated) 1,000 mls @ 200 mls/hr IV ASDIRECTED [facility] Dextrose/Sodium Chloride (Dextrose 5%-1/2 Ns) 1,000 mls @ 150 mls/hr IV ASDIRECTED [facility] Last Admin: 06/05/17 00:22 Dose: 150 mls/hr Insulin Detemir (Levemir) 5 unit SUBCUT BEDTIME [facility] Last Admin: 06/03/17 19:48 Dose: 5 units Insulin Detemir (Levemir) 3 unit SUBCUT Q12HR [facility] Last Admin: 06/11/17 09:18 Dose: 3 unit Lisinopril (Prinivil) 10 mg PO DAILY [facility] Last Admin: 06/11/17 09:14 Dose: 10 mg Lorazepam (Ativan) Confirm Administered Dose 2 mg .ROUTE .STK-MED ONE Stop: 05/01/17 21:31 Last Admin: 05/02/17 03:32 Dose: Not Given Lorazepam (Ativan) 2 mg IVPUSH ONETIME ONE Stop: 05/01/17 21:01 Last Admin: 05/02/17 02:35 Dose: 1 mg Lorazepam (Ativan) Confirm Administered Dose 2 mg .ROUTE .STK-MED ONE Stop: 05/05/17 15:27 Last Admin: 05/05/17 17:48 Dose: Not Given Lorazepam (Ativan) 2 mg IVPUSH ONETIME ONE Stop: 05/05/17 15:50 Last Admin: 05/05/17 15:40 Dose: 2 mg Lorazepam (Ativan) Confirm Administered Dose 2 mg .ROUTE .STK-MED ONE Stop: 05/10/17 19:09 Last Admin: 05/10/17 19:10 Dose: 2 mg Lorazepam (Ativan) 1 mg IVPUSH Q4H PRN PRN Reason: Anxiety Last Admin: 06/25/17 20:10 Dose: 1 mg Lorazepam (Ativan) Confirm Administered Dose 2 mg .ROUTE .STK-MED ONE Stop: 07/18/17 20:22 Last Admin: 07/18/17 21:38 Dose: Not Given Magnesium Hydroxide (Milk Of Magnesia) Confirm Administered Dose 30 ml .ROUTE .STK-MED ONE Stop: 05/16/17 10:03 Last Admin: 05/16/17 08:30 Dose: 30 ml Magnesium Hydroxide (Milk Of Magnesia) Confirm Administered Dose 30 ml .ROUTE .STK-MED ONE Stop: 05/27/17 22:46 Last Admin: 05/28/17 06:25 Dose: 30 ml Metformin HCl (Glucophage) 250 mg PO BID [facility] Last Admin: 05/09/17 21:03 Dose: Not Given Metformin HCl (Glucophage) 250 mg PO BIDMEALS [facility] Last Admin: 06/02/17 08:49 Dose: 250 mg Morphine Sulfate (Morphine) 2 mg IVPUSH Q2H PRN PRN Reason: Pain (severe 7-10) Last Admin: 06/25/17 20:10 Dose: 2 mg Morphine Sulfate (Morphine) 2 mg SUBCUT Q2H PRN PRN Reason: Pain (severe 7-10) Last Admin: 07/07/17 07:26 Dose: 2 mg Morphine Sulfate (Morphine) 2 mg IVPUSH Q2H PRN PRN Reason: Pain Last Admin: 07/01/17 07:30 Dose: 2 mg Non-Formulary Medication (Quetiapine [Seroquel Xr]) [facility] Quetiapine Fumarate (Seroquel) 200 mg PO BID@0700,1100 [facility] Last Admin: 05/03/17 07:32 Dose: Not Given Quetiapine Fumarate (Seroquel) 450 mg PO DAILY@2000 [facility] Last Admin: 05/28/17 20:05 Dose: 400 mg Quetiapine Fumarate (Seroquel) 200 mg PO DAILY@0700,1100 [facility] Last Admin: 05/10/17 21:46 Dose: Not Given Quetiapine Fumarate (Seroquel) 400 mg PO BEDTIME [facility] Last Admin: 07/11/17 20:15 Dose: 400 mg Quetiapine Fumarate (Seroquel) 50 mg PO BEDTIME [facility] Last Admin: 05/10/17 20:41 Dose: 50 mg Quetiapine Fumarate (Seroquel) Confirm Administered Dose 400 mg .ROUTE .STK-MED ONE Stop: 05/03/17 19:38 Last Admin: 05/04/17 00:57 Dose: Not Given Quetiapine Fumarate (Seroquel) Confirm Administered Dose 200 mg .ROUTE .STK-MED ONE Stop: 05/10/17 08:02 Last Admin: 05/10/17 20:41 Dose: Not Given Quetiapine Fumarate (Seroquel) 250 mg PO 0700,1100 [facility] Last Admin: 05/12/17 06:43 Dose: 250 mg Quetiapine Fumarate (Seroquel) 450 mg PO BEDTIME [facility] Last Admin: 05/26/17 19:49 Dose: 450 mg Quetiapine Fumarate (Seroquel) Confirm Administered Dose 50 mg .ROUTE .STK-MED ONE Stop: 05/11/17 06:54 Last Admin: 05/11/17 11:55 Dose: Not Given Quetiapine Fumarate (Seroquel) 200 mg PO DAILY@0700,1100 [facility] Last Admin: 05/27/17 08:03 Dose: 200 mg Quetiapine Fumarate (Seroquel) 50 mg PO DAILY@0700,1100 [facility] Last Admin: 05/27/17 08:03 Dose: 50 mg Quetiapine Fumarate (Seroquel) Confirm Administered Dose 50 mg .ROUTE .STK-MED ONE Stop: 05/14/17 13:32 Last Admin: 05/14/17 13:35 Dose: Not Given Quetiapine Fumarate (Seroquel) Confirm Administered Dose 50 mg .ROUTE .STK-MED ONE Stop: 05/20/17 19:39 Last Admin: 05/20/17 21:26 Dose: 50 mg Quetiapine Fumarate (Seroquel) Confirm Administered Dose 50 mg .ROUTE .STK-MED ONE Stop: 05/22/17 19:54 Last Admin: 05/22/17 21:02 Dose: Not Given Quetiapine Fumarate (Seroquel) Confirm Administered Dose 50 mg .ROUTE .STK-MED ONE Stop: 05/24/17 19:28 Last Admin: 05/24/17 19:41 Dose: Not Given Quetiapine Fumarate (Seroquel) Confirm Administered Dose 50 mg .ROUTE .STK-MED ONE Stop: 05/25/17 20:09 Last Admin: 05/25/17 20:39 Dose: Not Given Quetiapine Fumarate (Seroquel) Confirm Administered Dose 50 mg .ROUTE .STK-MED ONE Stop: 05/26/17 18:48 Last Admin: 05/26/17 19:42 Dose: Not Given Quetiapine Fumarate (Quetiapine Fumarate) Confirm Administered Dose 400 mg PO .STK-MED ONE Stop: 05/26/17 19:37 Last Admin: 05/26/17 19:43 Dose: Not Given Quetiapine Fumarate (Quetiapine Fumarate) 200 mg PO DAILY@0700,1100 [facility] Last Admin: 06/21/17 07:51 Dose: 200 mg Quetiapine Fumarate (Seroquel) 50 mg PO DAILY@0700,1100 [facility] Last Admin: 06/21/17 07:51 Dose: 50 mg Quetiapine Fumarate (Seroquel) 400 mg PO BEDTIME [facility] Last Admin: 07/01/17 20:29 Dose: 400 mg Quetiapine Fumarate (Seroquel) 50 mg PO BEDTIME [facility] Last Admin: 07/01/17 20:29 Dose: 50 mg Quetiapine Fumarate (Quetiapine Fumarate) Confirm Administered Dose 400 mg PO .STK-MED ONE Stop: 05/27/17 19:18 Last Admin: 05/27/17 19:28 Dose: Not Given Quetiapine Fumarate (Quetiapine Fumarate) Confirm Administered Dose 400 mg PO .STK-MED ONE Stop: 06/01/17 19:29 Last Admin: 06/01/17 19:54 Dose: Not Given Quetiapine Fumarate (Quetiapine Fumarate) Confirm Administered Dose 400 mg PO .STK-MED ONE Stop: 06/02/17 19:47 Last Admin: 06/02/17 20:02 Dose: Not Given Quetiapine Fumarate (Quetiapine Fumarate) Confirm Administered Dose 400 mg PO .STK-MED ONE Stop: 06/03/17 19:38 Last Admin: 06/03/17 19:47 Dose: Not Given Quetiapine Fumarate (Quetiapine Fumarate) Confirm Administered Dose 400 mg PO .STK-MED ONE Stop: 06/04/17 20:38 Last Admin: 06/04/17 23:12 Dose: Not Given Quetiapine Fumarate (Quetiapine Fumarate) Confirm Administered Dose 400 mg PO .STK-MED ONE Stop: 06/05/17 19:39 Last Admin: 06/05/17 20:45 Dose: Not Given Quetiapine Fumarate (Quetiapine Fumarate) Confirm Administered Dose 400 mg PO .STK-MED ONE Stop: 06/06/17 19:30 Last Admin: 06/06/17 20:36 Dose: Not Given Quetiapine Fumarate (Seroquel) Confirm Administered Dose 50 mg .ROUTE .STK-MED ONE Stop: 06/07/17 19:07 Last Admin: 06/07/17 21:33 Dose: Not Given Quetiapine Fumarate (Quetiapine Fumarate) Confirm Administered Dose 400 mg PO .STK-MED ONE Stop: 06/07/17 19:07 Last Admin: 06/07/17 21:32 Dose: Not Given Quetiapine Fumarate (Seroquel) Confirm Administered Dose 50 mg .ROUTE .STK-MED ONE Stop: 06/08/17 06:00 Last Admin: 06/08/17 06:12 Dose: Not Given Quetiapine Fumarate (Seroquel) Confirm Administered Dose 50 mg .ROUTE .STK-MED ONE Stop: 06/08/17 10:15 Last Admin: 06/08/17 10:18 Dose: Not Given Quetiapine Fumarate (Quetiapine Fumarate) Confirm Administered Dose 400 mg PO .STK-MED ONE Stop: 06/08/17 19:00 Last Admin: 06/08/17 19:32 Dose: Not Given Quetiapine Fumarate (Quetiapine Fumarate) Confirm Administered Dose 400 mg PO .STK-MED ONE Stop: 06/09/17 21:28 Last Admin: 06/09/17 21:57 Dose: Not Given Quetiapine Fumarate (Quetiapine Fumarate) Confirm Administered Dose 400 mg PO .STK-MED ONE Stop: 06/10/17 19:36 Last Admin: 06/10/17 19:39 Dose: Not Given Quetiapine Fumarate (Quetiapine Fumarate) Confirm Administered Dose 400 mg PO .STK-MED ONE Stop: 06/11/17 19:31 Last Admin: 06/11/17 19:43 Dose: Not Given Quetiapine Fumarate (Quetiapine Fumarate) Confirm Administered Dose 400 mg PO .STK-MED ONE Stop: 06/12/17 19:22 Last Admin: 06/12/17 19:31 Dose: Not Given Quetiapine Fumarate (Quetiapine Fumarate) Confirm Administered Dose 400 mg PO .STK-MED ONE Stop: 06/14/17 20:19 Last Admin: 06/14/17 21:11 Dose: Not Given Quetiapine Fumarate (Quetiapine Fumarate) Confirm Administered Dose 400 mg PO .STK-MED ONE Stop: 06/15/17 19:12 Last Admin: 06/15/17 19:18 Dose: Not Given Quetiapine Fumarate (Quetiapine Fumarate) Confirm Administered Dose 400 mg PO .STK-MED ONE Stop: 06/16/17 20:27 Last Admin: 06/16/17 20:47 Dose: Not Given Quetiapine Fumarate (Quetiapine Fumarate) Confirm Administered Dose 400 mg PO .STK-MED ONE Stop: 06/17/17 19:30 Last Admin: 06/17/17 20:54 Dose: Not Given Quetiapine Fumarate (Quetiapine Fumarate) Confirm Administered Dose 400 mg PO .STK-MED ONE Stop: 06/20/17 19:56 Last Admin: 06/20/17 20:11 Dose: Not Given Quetiapine Fumarate (Quetiapine Fumarate) Confirm Administered Dose 400 mg PO .STK-MED ONE Stop: 06/21/17 19:39 Last Admin: 06/21/17 19:46 Dose: Not Given Quetiapine Fumarate (Quetiapine Fumarate) Confirm Administered Dose 400 mg PO .STK-MED ONE Stop: 06/22/17 21:29 Last Admin: 06/23/17 08:16 Dose: Not Given Quetiapine Fumarate (Quetiapine Fumarate) Confirm Administered Dose 400 mg PO .STK-MED ONE Stop: 06/24/17 19:24 Last Admin: 06/25/17 07:04 Dose: Not Given Quetiapine Fumarate (Quetiapine Fumarate) Confirm Administered Dose 400 mg PO .STK-MED ONE Stop: 06/25/17 20:03 Last Admin: 06/25/17 20:00 Dose: Not Given Quetiapine Fumarate (Quetiapine Fumarate) Confirm Administered Dose 400 mg PO .STK-MED ONE Stop: 06/26/17 19:14 Last Admin: 06/26/17 20:00 Dose: Not Given Quetiapine Fumarate (Quetiapine Fumarate) Confirm Administered Dose 400 mg PO .STK-MED ONE Stop: 06/27/17 19:57 Last Admin: 06/27/17 20:00 Dose: Not Given Quetiapine Fumarate (Quetiapine Fumarate) Confirm Administered Dose 200 mg PO .STK-MED ONE Stop: 06/28/17 19:12 Last Admin: 06/28/17 19:23 Dose: Not Given Quetiapine Fumarate (Quetiapine Fumarate) Confirm Administered Dose 200 mg PO .STK-MED ONE Stop: 06/28/17 19:19 Last Admin: 06/28/17 20:14 Dose: Not Given Quetiapine Fumarate (Quetiapine Fumarate) Confirm Administered Dose 400 mg PO .STNano-MED ONE Stop: 06/30/17 19:18 Last Admin: 06/30/17 19:52 Dose: Not Given Quetiapine Fumarate (Quetiapine Fumarate) Confirm Administered Dose 400 mg PO .STNano-MED ONE Stop: 07/01/17 19:35 Last Admin: 07/01/17 20:29 Dose: Not Given Quetiapine Fumarate (Quetiapine Fumarate) Confirm Administered Dose 400 mg PO .STNano-MED ONE Stop: 07/03/17 19:54 Last Admin: 07/04/17 03:53 Dose: 400 mg Quetiapine Fumarate (Quetiapine Fumarate) Confirm Administered Dose 400 mg PO .STK-MED ONE Stop: 07/04/17 20:32 Last Admin: 07/04/17 20:36 Dose: Not Given Quetiapine Fumarate (Quetiapine Fumarate) Confirm Administered Dose 400 mg PO .STNano-MED ONE Stop: 07/05/17 19:33 Last Admin: 07/05/17 19:36 Dose: Not Given Quetiapine Fumarate (Quetiapine Fumarate) Confirm Administered Dose 400 mg PO .STNano-MED ONE Stop: 07/06/17 20:10 Last Admin: 07/06/17 21:42 Dose: 400 mg Quetiapine Fumarate (Quetiapine Fumarate) Confirm Administered Dose 400 mg PO .STK-MED ONE Stop: 07/07/17 19:34 Last Admin: 07/07/17 22:12 Dose: Not Given Quetiapine Fumarate (Quetiapine Fumarate) Confirm Administered Dose 400 mg PO .STNano-MED ONE Stop: 07/08/17 19:15 Last Admin: 07/09/17 00:03 Dose: Not Given Quetiapine Fumarate (Quetiapine Fumarate) Confirm Administered Dose 400 mg PO .STNano-MED ONE Stop: 07/09/17 19:58 Last Admin: 07/09/17 20:55 Dose: Not Given Quetiapine Fumarate (Quetiapine Fumarate) Confirm Administered Dose 400 mg PO .STNano-coJuvo ONE Stop: 07/12/17 20:13 Last Admin: 07/12/17 23:11 Dose: Not Given Quetiapine Fumarate (Quetiapine Fumarate) Confirm Administered Dose 400 mg PO .[employer]-coJuvo ONE Stop: 07/13/17 19:56 Last Admin: 07/13/17 20:02 Dose: 400 mg Quetiapine Fumarate (Quetiapine Fumarate) Confirm Administered Dose 400 mg PO .[employer]-coJuvo ONE Stop: 07/14/17 19:21 Last Admin: 07/14/17 20:52 Dose: 400 mg Quetiapine Fumarate (Quetiapine Fumarate) Confirm Administered Dose 200 mg PO .[employer]-coJuvo ONE Stop: 07/15/17 21:33 Last Admin: 07/17/17 09:31 Dose: Not Given Quetiapine Fumarate (Quetiapine Fumarate) Confirm Administered Dose 400 mg PO .[employer]-coJuvo ONE Stop: 07/16/17 19:57 Last Admin: 07/17/17 03:00 Dose: Not Given Quetiapine Fumarate (Quetiapine Fumarate) Confirm Administered Dose 400 mg PO .STNano-coJuvo ONE Stop: 07/17/17 20:14 Last Admin: 07/17/17 22:48 Dose: Not Given Quetiapine Fumarate (Quetiapine Fumarate) Confirm Administered Dose 400 mg PO .STNano-coJuvo ONE Stop: 07/18/17 20:13 Last Admin: 07/18/17 21:38 Dose: Not Given Quetiapine Fumarate (Quetiapine Fumarate) Confirm Administered Dose 400 mg PO .STNano-coJuvo ONE Stop: 07/19/17 18:58 Last Admin: 07/19/17 19:43 Dose: Not Given Quetiapine Fumarate (Quetiapine Fumarate) Confirm Administered Dose 400 mg PO .STK-MED ONE Stop: 07/20/17 19:21 Last Admin: 07/20/17 19:25 Dose: Not Given Sodium Chloride (Saline Flush) 10 ml FLUSH BID [facility] Last Admin: 06/24/17 13:13 Dose: Not Given Trimethoprim/Sulfamethoxazole (Septra Ds) 1 tab PO BID [facility] Stop: 06/03/17 23:59 Last Admin: 06/03/17 19:47 Dose: 1 tab Tuberculin PPD (Aplisol) 5 unit IDERM ONETIME ONE Stop: 04/30/17 16:28 *Q Meaningful Use (DIS) - VTE *Q VTE Criteria *Q: VTE Mechanical Contraindications *Q: Confused Consciousness - Stroke *Q Stroke Criteria *Q: - AMI *Q AMI Criteria *Q:
== END 2017-07-21 10:10 | disposition other institution (70) | DRG 949 ==
LOC: LB.MS 15:03 → UNDOADMIN 15:03 → LB.MS 16:06
PROVIDERS: ADMIT Nurse Practitioner Family; ATTEND Family Medicine
DX: S06.5X0D Traumatic subdural hemorrhage without loss of consciousness, subsequent encounter (principal); F02.81 Dementia in other diseases classified elsewhere, unspecified severity, with behavioral disturbance; F20.0 Paranoid schizophrenia; Z66 Do not resuscitate; G30.9 Alzheimer's disease, unspecified; G44.319 Acute post-traumatic headache, not intractable; E11.65 Type 2 diabetes mellitus with hyperglycemia; Z79.84 Long term (current) use of oral hypoglycemic drugs; Z91.81 History of falling; R53.1 Weakness; K59.00 Constipation, unspecified; N39.490 Overflow incontinence; N31.9 Neuromuscular dysfunction of bladder, unspecified; H54.7 Unspecified visual loss; Z51.5 Encounter for palliative care; R50.9 Fever, unspecified; H91.90 Unspecified hearing loss, unspecified ear; Z88.5 Allergy status to narcotic agent
CPT/HCPCS: 36415; 70450; 71010; 80048; 81001; 82962; 85025; 87086; 87088; 97162-GP; 97166-GO; 97530-GP; A9270-GY; J1630; J2060; J2270; J7040; J7050

== ENCOUNTER 2017-07-20 11:55 | Inpatient (IN) | payer SELFPAY ==
[2017-07-21] MEDS ORDERED: Scopolamine 1.5 MG Transdermal Patch TOP PRN (09:53)
--- NOTE | 2017-07-21 09:56 | PCM.HP ---
H&P History of Present Illness - General Date of Service: 07/21/17 Admit Problem/Dx: Admission Diagnosis/Problem Admission Diagnosis/Problem Comfort measures only status Source of Information: Half-Way Records, Old Records, RN Notes Reviewed History Limitations: Reports: Other (Obtunded, Weak) - History of Present Illness Initial Comments - Free Text/Narative: This is a 86yo M admitted to [facility] from Swing bed for Comfort care. He is a palliative care patient who has been resting in bed comfortably with a gradual decline in strength and cognition. He has a history of dementia, and paranoid schizophrenia. Duration of Symptoms: Reports: Week(s):, Chronic, Getting Worse Location: Reports: Generalized - Related Data Allergies/Adverse Reactions: Allergies Allergy/AdvReac Type Severity Reaction Status Date / Time hydromorphone [From Dilaudid] AdvReac Wheezing Verified 07/21/17 08:00 Home Medications: Home Meds Acetaminophen [Tylenol] 650 mg PO BID 04/10/17 [History] Citalopram Hydrobromide [Citalopram HBr] 20 mg PO BEDTIME 04/10/17 [History] Erythromycin Base [Erythromycin] 1 applic TOP BEDTIME 04/10/17 [History] QUEtiapine [SEROquel] 450 mg PO BEDTIME 04/10/17 [History] metroNIDAZOLE [metroNIDAZOLE 0.75% Cream] 1 applic TOP DAILY 04/10/17 [History] QUEtiapine Fumarate [Seroquel] 200 mg PO ACBREAKFAST 04/13/17 [History] QUEtiapine [SEROquel XR] 200 tab PO ACLUNCH 04/13/17 [History] Acetaminophen [Tylenol] 650 mg PO BID 30 Days tablet 07/19/17 [Rx] Acetaminophen/HYDROcodone [[place] 325-5 MG] 1 tab PO Q4H PRN 30 Days #180 tab 08/23 [Rx] Bisacodyl [Dulcolax] 10 mg RC DAILY PRN 30 Days #30 supp.rect 07/19/17 [Rx] Docusate Sodium/Sennosides [Senna Plus] 1 each PO BID 30 Days #60 tab 07/19/17 [ Rx] LORazepam [Ativan] 0.5 mg PO Q8HR PRN 30 Days #90 tablet 07/19/17 [Rx] LORazepam [Ativan] 1 mg SUBCUT Q4HR PRN 30 Days #180 mdv 07/19/17 [Rx] Scopolamine [Transderm-Scop] 1 patch TD Q3D PRN 30 Days #10 patch 07/19/17 [Rx] fentaNYL [Duragesic] 25 mcg TRDERM Q72H 30 Days #10 patch 07/19/17 [Rx] Docusate Sodium/Sennosides [Senna Plus] 1 tab PO BID 07/20/17 [History] Past Medical History Other HEENT History: [facility] Cardiovascular History: Reports: Hypertension Gastrointestinal History: Reports: Chronic Constipation Genitourinary History: Reports: Retention, Urinary Other Genitourinary History: Being treated for UTI in [place] and urinary obstruction. Smith cath leg bag in place with cloudy juan urine Musculoskeletal History: Reports: Other (See Below) Other Musculoskeletal History: Generalized weakness Neurological History: Reports: Alzheimers Disease Psychiatric History: Reports: Alzheimers Disease, Dementia, Depression, Schizophrenia Endocrine/Metabolic History: Reports: Diabetes, Type II Dermatologic History: Reports: Psoriasis, Seborrheic Dermatitis, Other (See Below) Other Dermatologic History: Toenail Fungus. Rosacia - Past Surgical History HEENT Surgical History: Reports: None Cardiovascular Surgical History: Reports: None Male Surgical History: Reports: None Endocrine Surgical History: Reports: None Neurological Surgical History: Reports: None Musculoskeletal Surgical History: Reports: Other (See Below) Other Musculoskeletal Surgeries/Procedures:: chronic back pain Dermatological Surgical History: Reports: None Social & Family History - Family History Family Medical History: Noncontributory - Tobacco Use Smoking Status *Q: Unknown Ever Smoked Second Hand Smoke Exposure: No - Caffeine Use Caffeine Use: Reports: Coffee - Recreational Drug Use Recreational Drug Use: No - Living Situation & Occupation Living situation: Reports: Extended Care Facility Occupation: Disabled H&P Review of Systems - Review of Systems: Review Of Systems: ROS reveals no pertinent complaints other than HPI. Exam - Exam Exam: Not Obtained *Q Meaningful Use (ADM) - VTE *Q VTE Criteria *Q: - Stroke *Q Stroke Criteria *Q: - AMI *Q AMI Criteria *Q: - Problem List (1) H/O subdural hemorrhage SNOMED Code(s): 317096522 ICD Code: Z86.79 - PERSONAL HISTORY OF OTHER DISEASES OF THE CIRCULATORY SYSTEM Status: Chronic (2) Comfort measures only status SNOMED Code(s): 09200369310283 ICD Code: Z51.5 - ENCOUNTER FOR PALLIATIVE CARE Status: Chronic (3) Neurogenic bladder SNOMED Code(s): 064778980 ICD Code: N31.9 - NEUROMUSCULAR DYSFUNCTION OF BLADDER, UNSPECIFIED Status : Chronic (4) Palliative care patient SNOMED Code(s): 562151728 ICD Code: Z51.5 - ENCOUNTER FOR PALLIATIVE CARE Status: Chronic Priority : High (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 ICD Code: F03.91 - UNSPECIFIED DEMENTIA WITH BEHAVIORAL DISTURBANCE Status: Chronic Priority: High Qualifiers: Dementia behavioral disturbance: with behavioral disturbance Qualified Code (s): F02.81 - Dementia in other diseases classified elsewhere with behavioral disturbance (6) Diabetes mellitus SNOMED Code(s): 93488209 ICD Code: E11.9 - TYPE 2 DIABETES MELLITUS WITHOUT COMPLICATIONS Status: Chronic Priority: Medium Qualifiers: Diabetes mellitus type: type 2 Diabetes mellitus complication status: with hyperglycemia 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 use: without correction use Qualified Code(s): E11.65 - Type 2 diabetes mellitus with hyperglycemia (7) Paranoid schizophrenia, chronic condition SNOMED Code(s): 77179235 ICD Code: F20.0 - PARANOID SCHIZOPHRENIA Status: Chronic Priority: High Problem List Initiated/Reviewed/Updated: Yes Orders Last 24hrs: Active Orders 24 hr Category Date Time Status Patient Status [ADT] Routine ADT 07/21/17 09:52 Ordered Acetaminophen [Tylenol] Med 07/21/17 20:00 Ordered 650 mg PO BID Acetaminophen/HYDROcodone [[place] 325-5 MG] Med 07/21/17 09:53 Ordered 1 tab PO Q4H PRN Bisacodyl [Dulcolax] Med 07/21/17 09:53 Ordered 10 mg .XX DAILY PRN Citalopram Hydrobromide [Citalopram HBr] Med 07/21/17 20:00 Ordered 20 mg PO BEDTIME Docusate Sodium/Sennosides [Senna Plus] Med 07/21/17 20:00 Ordered 1 each PO BID Erythromycin Base [Erythromycin 0.5% Ophth Oint] Med 07/21/17 20:00 Ordered 1 applic EYEBOTH BEDTIME LORazepam [Ativan] Med 07/21/17 09:53 Ordered 0.5 mg PO Q8HR PRN LORazepam [Ativan] Med 07/21/17 09:53 Ordered 1 mg SUBCUT Q4HR PRN QUEtiapine [SEROquel XR] Med 07/21/17 11:00 Ordered 200 tab PO ACLUNCH QUEtiapine [SEROquel] Med 07/22/17 07:00 Ordered 200 mg PO ACBREAKFAST QUEtiapine [SEROquel] Med 07/21/17 20:00 Ordered 450 mg PO BEDTIME Scopolamine [Transderm-Scop] Med 07/21/17 09:53 Ordered 1 patch TOP Q3D PRN fentaNYL [Duragesic] Med 07/21/17 10:00 Ordered 25 mcg TRDERM Q72H metroNIDAZOLE [metroNIDAZOLE 0.75% Cream] Med 07/22/17 08:00 Ordered 1 applic TOP DAILY Assessment/Plan Comment:: Patient admitted to Respite care for continued comfort care management and support. Guardian aware and family aware of patient status and slow decline.
[2017-07-21] MEDS ORDERED: fentaNYL 25 MCG/HR Transdermal Patch TRDERM SCH (10:00)
[2017-07-21] MEDS ORDERED: QUETIAPINE PO SCH ×2 (11:00→20:00)
[2017-07-21] MEDS ORDERED: QUEtiapine Fumarate 200 MG TABLET PO ONE (12:16)
[2017-07-21] MEDS: SEROQUEL 400 MG PO SCH (19:32)
[2017-07-21] MEDS: Erythromycin Base 0.5% Ophth Oint 3.5 GM Tube EYEBOTH SCH (19:33)
[2017-07-21] MEDS: Acetaminophen 325 MG Tab PO SCH (19:34)
[2017-07-21] MEDS: LORazepam 0.5 MG Tab PO PRN (19:36)
[2017-07-21] MEDS: Acetaminophen/HYDROcodone 325-5 MG Tab PO PRN (19:36)
[2017-07-21] MEDS ORDERED: Non-Formulary Medication 1 Each (Citalopram Hydrobromide [Citalopram Hbr] 20 MG) PO SCH (20:00)
[2017-07-22] MEDS: Acetaminophen 325 MG Tab PO SCH ×2 (07:46→21:36)
[2017-07-22] MEDS: Citalopram 20 MG Tab PO SCH (07:46)
[2017-07-22] MEDS: Acetaminophen/HYDROcodone 325-5 MG Tab PO PRN (07:46)
[2017-07-22] MEDS: LORazepam 0.5 MG Tab PO PRN (07:47)
[2017-07-22] MEDS: Non-Formulary Medication 1 Each (Metronidazole [Metronidazole 0.75% Cream] 1 APPLIC) TOP SCH (07:47)
[2017-07-22] MEDS: fentaNYL 25 MCG/HR Transdermal Patch TRDERM SCH (12:00)
[2017-07-22] MEDS ORDERED: QUEtiapine Fumarate 200 MG TABLET PO ONE (21:18)
[2017-07-22] MEDS: SEROQUEL 400 MG PO SCH (21:36)
[2017-07-22] MEDS: Erythromycin Base 0.5% Ophth Oint 3.5 GM Tube EYEBOTH SCH (21:37)
[2017-07-23] MEDS: Citalopram 20 MG Tab PO SCH (08:17)
[2017-07-23] MEDS: Acetaminophen 325 MG Tab PO SCH (08:17)
[2017-07-23] MEDS: Non-Formulary Medication 1 Each (Metronidazole [Metronidazole 0.75% Cream] 1 APPLIC) TOP SCH (08:17)
[2017-07-23] MEDS: Acetaminophen/HYDROcodone 325-5 MG Tab PO PRN (08:18)
[2017-07-23] MEDS: Bisacodyl 10 MG Supp RECTAL PRN (08:18)
[2017-07-23] MEDS: Erythromycin Base 0.5% Ophth Oint 3.5 GM Tube EYEBOTH SCH (20:00)
[2017-07-24] MEDS: SEROQUEL 400 MG PO SCH ×2 (00:35→20:40)
[2017-07-24] MEDS: Acetaminophen 325 MG Tab PO SCH ×4 (00:35→20:40)
[2017-07-24] MEDS: Citalopram 20 MG Tab PO SCH (07:18)
[2017-07-24] MEDS: Non-Formulary Medication 1 Each (Metronidazole [Metronidazole 0.75% Cream] 1 APPLIC) TOP SCH (07:19)
[2017-07-24] MEDS: Acetaminophen/HYDROcodone 325-5 MG Tab PO PRN ×4 (07:30→20:40)
[2017-07-24] MEDS: LORazepam 0.5 MG Tab PO PRN (13:45)
[2017-07-24] MEDS ORDERED: QUEtiapine Fumarate 200 MG TABLET PO ONE (19:51)
[2017-07-24] MEDS: Erythromycin Base 0.5% Ophth Oint 3.5 GM Tube EYEBOTH SCH (20:05)
[2017-07-25] MEDS ORDERED: QUEtiapine Fumarate 200 MG TABLET PO ONE (08:44)
[2017-07-25] MEDS: Acetaminophen/HYDROcodone 325-5 MG Tab PO PRN ×2 (11:00→20:20)
[2017-07-25] MEDS: Citalopram 20 MG Tab PO SCH (11:35)
[2017-07-25] MEDS: Non-Formulary Medication 1 Each (Metronidazole [Metronidazole 0.75% Cream] 1 APPLIC) TOP SCH (11:35)
[2017-07-25] MEDS: Acetaminophen 325 MG Tab PO SCH ×2 (11:36→20:00)
[2017-07-25] MEDS: fentaNYL 25 MCG/HR Transdermal Patch TRDERM SCH (12:40)
[2017-07-25] MEDS ORDERED: LORazepam 2 MG/ML SDV ONE (17:34)
[2017-07-25] MEDS ORDERED: LORazepam 2 MG/ML SDV IM ONE (17:38)
[2017-07-25] MEDS: SEROQUEL 400 MG PO SCH (20:20)
[2017-07-25] MEDS: Erythromycin Base 0.5% Ophth Oint 3.5 GM Tube EYEBOTH SCH (20:40)
[2017-07-26] MEDS: Erythromycin Base 0.5% Ophth Oint 3.5 GM Tube EYEBOTH SCH (20:47)
[2017-07-26] MEDS: SEROQUEL 400 MG PO SCH (20:47)
[2017-07-26] MEDS: Acetaminophen 325 MG Tab PO SCH (20:47)
[2017-07-27] MEDS ORDERED: QUEtiapine Fumarate 200 MG TABLET PO ONE (07:20)
[2017-07-27] MEDS: Non-Formulary Medication 1 Each (Metronidazole [Metronidazole 0.75% Cream] 1 APPLIC) TOP SCH ×2 (09:02→17:01)
[2017-07-27] MEDS: Citalopram 20 MG Tab PO SCH ×2 (09:02→17:00)
[2017-07-27] MEDS: Acetaminophen 325 MG Tab PO SCH ×3 (09:07→20:38)
[2017-07-27] MEDS: Erythromycin Base 0.5% Ophth Oint 3.5 GM Tube EYEBOTH SCH (20:31)
[2017-07-27] MEDS: SEROQUEL 400 MG PO SCH (20:33)
[2017-07-27] MEDS: Acetaminophen/HYDROcodone 325-5 MG Tab PO PRN (20:33)
[2017-07-27] MEDS: LORazepam 0.5 MG Tab PO PRN (20:34)
[2017-07-27] MEDS: fentaNYL 25 MCG/HR Transdermal Patch TRDERM SCH (20:35)
[2017-07-28] MEDS: Non-Formulary Medication 1 Each (Metronidazole [Metronidazole 0.75% Cream] 1 APPLIC) TOP SCH (08:29)
[2017-07-28] MEDS: Citalopram 20 MG Tab PO SCH (08:29)
[2017-07-28] MEDS: Acetaminophen 325 MG Tab PO SCH (08:31)
[2017-07-28] MEDS: fentaNYL 25 MCG/HR Transdermal Patch TRDERM SCH (17:32)
[2017-07-29] MEDS: Erythromycin Base 0.5% Ophth Oint 3.5 GM Tube EYEBOTH SCH ×2 (04:49→19:38)
[2017-07-29] MEDS: Acetaminophen 325 MG Tab PO SCH ×3 (04:50→19:39)
[2017-07-29] MEDS: SEROQUEL 400 MG PO SCH ×2 (04:50→19:38)
[2017-07-29] MEDS: Citalopram 20 MG Tab PO SCH (08:26)
[2017-07-29] MEDS: Non-Formulary Medication 1 Each (Metronidazole [Metronidazole 0.75% Cream] 1 APPLIC) TOP SCH (08:27)
--- NOTE | 2017-07-29 08:37 | PCM.PN ---
- General Info Date of Service: 07/27/17 Functional Status: Reports: Pain Controlled - Review of Systems General: Reports: Weakness, Other (unable to obtain ROS - patient resting comfortable, breathing comfortably at regular respirations but not responding to verbal stimuli, withdraws from some tactile stimuli) - Patient Data Vitals - Most Recent: Last Vital Signs Temp 36.6 C 07/28/17 10:00 Pulse 79 07/28/17 10:00 Resp 16 07/28/17 10:00 BP 133/79 07/28/17 10:00 Pulse Ox 95 07/27/17 10:00 Weight - Most Recent: 60.237 kg Med Orders - Current: Current Medications Acetaminophen (Tylenol) 650 mg PO BID [facility] Last Admin: 07/29/17 08:26 Dose: 650 mg Hydrocodone Bitart/Acetaminophen ([place] 325-5 Mg) 1 tab PO Q4H PRN PRN Reason: Pain Last Admin: 07/27/17 20:33 Dose: 1 tab Bisacodyl (Dulcolax) 10 mg RECTAL DAILY PRN PRN Reason: Constipation Last Admin: 07/23/17 08:18 Dose: 10 mg Citalopram Hydrobromide (Celexa) 20 mg PO DAILY [facility] Last Admin: 07/29/17 08:26 Dose: 20 mg Erythromycin (Erythromycin 0.5% Ophth Oint) 3.5 gm EYEBOTH BEDTIME [facility] Last Admin: 07/29/17 04:49 Dose: Not Given Fentanyl (Duragesic) 25 mcg TRDERM Q72H BRIGITTE Lorazepam (Ativan) 0.5 mg PO Q8HR PRN PRN Reason: Anxiety Last Admin: 07/27/17 20:34 Dose: 0.5 mg Lorazepam (Ativan) 1 mg SUBCUT Q4HR PRN PRN Reason: Anxiety Miscellaneous Information (Remove Patch) 1 ea TRDERM Q72H BRIGITTE Morphine Sulfate (Morphine) 2 mg SUBCUT Q4H PRN PRN Reason: Pain Non-Formulary Medication (Metronidazole [Metronidazole 0.75% Cream]) 1 applic TOP DAILY [facility] Last Admin: 07/29/17 08:27 Dose: 1 applic Seroquel 400mg (Tablets) 1 each PO BEDTIME [facility] Last Admin: 07/29/17 04:50 Dose: Not Given Quetiapine Fumarate (Seroquel) 50 mg PO BEDTIME [facility] Last Admin: 07/29/17 04:50 Dose: Not Given Quetiapine Fumarate (Seroquel) 50 mg PO DAILY@0800,1200 [facility] Last Admin: 07/29/17 08:26 Dose: 50 mg Quetiapine Fumarate (Seroquel) 200 mg PO DAILY@0800,1200 [facility] Last Admin: 07/29/17 08:26 Dose: 200 mg Scopolamine (Transderm-Scop) 1.5 mg TOP Q72H PRN PRN Reason: Other Senna/Docusate Sodium (Senna Plus) 1 tab PO BID [facility] Last Admin: 07/29/17 08:26 Dose: 1 tab Discontinued Medications Fentanyl (Duragesic) 25 mcg TRDERM Q72H [facility] Last Admin: 07/21/17 11:31 Dose: Not Given Fentanyl (Duragesic) 25 mcg TRDERM Q72H [facility] Last Admin: 07/28/17 17:32 Dose: Not Given Lorazepam (Ativan) Confirm Administered Dose 2 mg .ROUTE .STK-MED ONE Stop: 07/25/17 17:35 Last Admin: 07/25/17 17:35 Dose: 2 mg Lorazepam (Ativan) 1 mg IM ONETIME ONE Stop: 07/25/17 17:39 Last Admin: 07/25/17 18:36 Dose: Not Given Miscellaneous Information (Remove Patch) 1 ea TRDERM Q72H [facility] Last Admin: 07/28/17 17:33 Dose: Not Given Quetiapine Fumarate (Seroquel) 200 mg PO DAILY@0800,1200 [facility] Last Admin: 07/21/17 12:18 Dose: 250 mg Quetiapine Fumarate (Seroquel) Confirm Administered Dose 50 mg .ROUTE .STK-MED ONE Stop: 07/21/17 12:17 Last Admin: 07/21/17 15:07 Dose: Not Given Quetiapine Fumarate (Quetiapine Fumarate) Confirm Administered Dose 200 mg PO .STK-MED ONE Stop: 07/21/17 12:17 Last Admin: 07/21/17 15:07 Dose: Not Given Quetiapine Fumarate (Quetiapine Fumarate) Confirm Administered Dose 400 mg PO .STK-MED ONE Stop: 07/22/17 21:19 Last Admin: 07/22/17 21:37 Dose: Not Given Quetiapine Fumarate (Quetiapine Fumarate) Confirm Administered Dose 400 mg PO .STK-MED ONE Stop: 07/24/17 19:52 Last Admin: 07/25/17 12:34 Dose: Not Given Quetiapine Fumarate (Quetiapine Fumarate) Confirm Administered Dose 200 mg PO .STK-MED ONE Stop: 07/25/17 08:45 Last Admin: 07/25/17 11:36 Dose: Not Given Quetiapine Fumarate (Quetiapine Fumarate) Confirm Administered Dose 200 mg PO .STK-MED ONE Stop: 07/27/17 07:21 Last Admin: 07/27/17 16:55 Dose: Not Given - Exam Quality Assessment: Urine Catheter Lungs: Decreased Breath Sounds Cardiovascular: Regular Rate, Regular Rhythm GI/Abdominal Exam: Abnormal Bowel Sounds (minimal bowel sounds) Extremities: Other (thin arms and legs, decreased muscle tone) - Problem List & Annotations (1) H/O subdural hemorrhage SNOMED Code(s): 992566005 Code(s): Z86.79 - PERSONAL HISTORY OF OTHER DISEASES OF THE CIRCULATORY SYSTEM Status: Chronic Current Visit: Yes (2) Comfort measures only status SNOMED Code(s): 39784384875341 Code(s): Z51.5 - ENCOUNTER FOR PALLIATIVE CARE Status: Chronic Current Visit: No (3) Neurogenic bladder SNOMED Code(s): 415180821 Code(s): N31.9 - NEUROMUSCULAR DYSFUNCTION OF BLADDER, UNSPECIFIED Status: Chronic Current Visit: No (4) Palliative care patient SNOMED Code(s): 666869413 Code(s): Z51.5 - ENCOUNTER FOR PALLIATIVE CARE Status: Chronic Priority: High Current Visit: No (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 Code(s): F03.91 - UNSPECIFIED DEMENTIA WITH BEHAVIORAL DISTURBANCE Status: Chronic Priority: High Current Visit: No Qualifiers: Dementia behavioral disturbance: with behavioral disturbance Qualified Code (s): F02.81 - Dementia in other diseases classified elsewhere with behavioral disturbance (6) Diabetes mellitus SNOMED Code(s): 31544510 Code(s): E11.9 - TYPE 2 DIABETES MELLITUS WITHOUT COMPLICATIONS Status: Chronic Priority: Medium Current Visit: No Qualifiers: Diabetes mellitus type: type 2 Diabetes mellitus complication status: with hyperglycemia Diabetes mellitus half-way insulin use: without termite technician use Qualified Code(s): E11.65 - Type 2 diabetes mellitus with hyperglycemia (7) Paranoid schizophrenia, chronic condition SNOMED Code(s): 86358521 Code(s): F20.0 - PARANOID SCHIZOPHRENIA Status: Chronic Priority: High Current Visit: No - Problem List Review Problem List Initiated/Reviewed/Updated: Yes - My Orders Last 24 Hours: My Active Orders 07/28/17 10:00 Insert Smith Catheter [Insert Urinary Catheter] [OM.PC] Q24H 07/29/17 10:00 Insert Smith Catheter [Insert Urinary Catheter] [OM.PC] Q24H 07/30/17 20:00 Remove Patch 1 ea TRDERM Q72H fentaNYL [Duragesic] 25 mcg TRDERM Q72H - Plan Plan:: Patient admitted to Respite care for continued comfort care management and support. Guardian aware and family aware of patient status and slow decline. Continued comfort cares and monitoring. No changes to plan of care.
[2017-07-29] MEDS: Acetaminophen/HYDROcodone 325-5 MG Tab PO PRN (19:39)
[2017-07-29] MEDS: LORazepam 0.5 MG Tab PO PRN (19:39)
[2017-07-30] MEDS: Acetaminophen 325 MG Tab PO SCH ×2 (09:24→20:15)
[2017-07-30] MEDS: Citalopram 20 MG Tab PO SCH (09:24)
[2017-07-30] MEDS: Acetaminophen/HYDROcodone 325-5 MG Tab PO PRN ×2 (09:24→20:12)
[2017-07-30] MEDS: Non-Formulary Medication 1 Each (Metronidazole [Metronidazole 0.75% Cream] 1 APPLIC) TOP SCH (09:24)
[2017-07-30] MEDS: LORazepam 0.5 MG Tab PO PRN ×2 (09:25→20:30)
[2017-07-30] MEDS: SEROQUEL 400 MG PO SCH (20:09)
[2017-07-30] MEDS: fentaNYL 25 MCG/HR Transdermal Patch TRDERM SCH ×2 (21:07→21:20)
[2017-07-30] MEDS: Erythromycin Base 0.5% Ophth Oint 3.5 GM Tube EYEBOTH SCH (21:11)
[2017-07-31] MEDS: Citalopram 20 MG Tab PO SCH (07:59)
[2017-07-31] MEDS: Non-Formulary Medication 1 Each (Metronidazole [Metronidazole 0.75% Cream] 1 APPLIC) TOP SCH (07:59)
[2017-07-31] MEDS: Acetaminophen 325 MG Tab PO SCH ×2 (08:02→20:18)
[2017-07-31] MEDS: Erythromycin Base 0.5% Ophth Oint 3.5 GM Tube EYEBOTH SCH (20:12)
[2017-07-31] MEDS: SEROQUEL 400 MG PO SCH (20:12)
[2017-07-31] MEDS: LORazepam 0.5 MG Tab PO PRN (20:16)
[2017-07-31] MEDS: Acetaminophen/HYDROcodone 325-5 MG Tab PO PRN (20:16)
[2017-08-01] MEDS: Acetaminophen 325 MG Tab PO SCH ×2 (10:20→19:55)
[2017-08-01] MEDS: Citalopram 20 MG Tab PO SCH (10:20)
[2017-08-01] MEDS: Non-Formulary Medication 1 Each (Metronidazole [Metronidazole 0.75% Cream] 1 APPLIC) TOP SCH (10:30)
[2017-08-01] MEDS: Acetaminophen/HYDROcodone 325-5 MG Tab PO PRN (13:04)
[2017-08-01] MEDS: LORazepam 0.5 MG Tab PO PRN (13:04)
[2017-08-01] MEDS: Erythromycin Base 0.5% Ophth Oint 3.5 GM Tube EYEBOTH SCH ×2 (19:54→20:08)
[2017-08-01] MEDS: SEROQUEL 400 MG PO SCH (19:54)
[2017-08-02] MEDS: LORazepam 2 MG/ML SDV SUBCUT PRN (09:00)
[2017-08-02] MEDS: Non-Formulary Medication 1 Each (Metronidazole [Metronidazole 0.75% Cream] 1 APPLIC) TOP SCH (09:00)
[2017-08-02] MEDS: Citalopram 20 MG Tab PO SCH (09:10)
[2017-08-02] MEDS: Acetaminophen 650 MG Tab.ER PO SCH ×2 (09:10→19:30)
[2017-08-02] MEDS: SEROQUEL 400 MG PO SCH (19:30)
[2017-08-02] MEDS: Acetaminophen/HYDROcodone 325-5 MG Tab PO PRN (19:31)
[2017-08-02] MEDS: Erythromycin Base 0.5% Ophth Oint 3.5 GM Tube EYEBOTH SCH (19:36)
[2017-08-02] MEDS: fentaNYL 25 MCG/HR Transdermal Patch TRDERM SCH (19:37)
[2017-08-02] MEDS: Bisacodyl 10 MG Supp RECTAL PRN (20:11)
[2017-08-03] MEDS: Citalopram 20 MG Tab PO SCH (08:43)
[2017-08-03] MEDS: Non-Formulary Medication 1 Each (Metronidazole [Metronidazole 0.75% Cream] 1 APPLIC) TOP SCH (08:46)
[2017-08-03] MEDS: Acetaminophen 650 MG Tab.ER PO SCH ×2 (08:47→19:24)
[2017-08-03] MEDS: LORazepam 2 MG/ML SDV SUBCUT PRN (10:09)
[2017-08-03] MEDS: Acetaminophen/HYDROcodone 325-5 MG Tab PO PRN (19:23)
[2017-08-03] MEDS: Erythromycin Base 0.5% Ophth Oint 3.5 GM Tube EYEBOTH SCH (19:23)
[2017-08-03] MEDS: LORazepam 0.5 MG Tab PO PRN (19:23)
[2017-08-03] MEDS: SEROQUEL 400 MG PO SCH (19:24)
[2017-08-04] MEDS: Acetaminophen 650 MG Tab.ER PO SCH ×2 (08:40→19:07)
[2017-08-04] MEDS: Citalopram 20 MG Tab PO SCH (08:40)
[2017-08-04] MEDS: Non-Formulary Medication 1 Each (Metronidazole [Metronidazole 0.75% Cream] 1 APPLIC) TOP SCH (11:47)
[2017-08-04] MEDS: Acetaminophen/HYDROcodone 325-5 MG Tab PO PRN ×2 (11:58→19:08)
[2017-08-04] MEDS: Erythromycin Base 0.5% Ophth Oint 3.5 GM Tube EYEBOTH SCH (19:07)
[2017-08-04] MEDS: SEROQUEL 400 MG PO SCH (19:07)
[2017-08-04] MEDS: LORazepam 0.5 MG Tab PO PRN (19:07)
[2017-08-05] MEDS: fentaNYL 25 MCG/HR Transdermal Patch TRDERM SCH ×2 (08:30→19:09)
[2017-08-05] MEDS: Citalopram 20 MG Tab PO SCH (08:45)
[2017-08-05] MEDS: Acetaminophen 650 MG Tab.ER PO SCH ×2 (08:46→19:54)
[2017-08-05] MEDS: Non-Formulary Medication 1 Each (Metronidazole [Metronidazole 0.75% Cream] 1 APPLIC) TOP SCH (08:46)
[2017-08-05] MEDS: Acetaminophen/HYDROcodone 325-5 MG Tab PO PRN (08:57)
[2017-08-05] MEDS: LORazepam 0.5 MG Tab PO PRN (15:48)
[2017-08-05] MEDS: SEROQUEL 400 MG PO SCH (19:52)
[2017-08-05] MEDS: Erythromycin Base 0.5% Ophth Oint 3.5 GM Tube EYEBOTH SCH (19:52)
[2017-08-06] MEDS: Non-Formulary Medication 1 Each (Metronidazole [Metronidazole 0.75% Cream] 1 APPLIC) TOP SCH (08:12)
[2017-08-06] MEDS: Acetaminophen 650 MG Tab.ER PO SCH ×2 (08:12→19:25)
[2017-08-06] MEDS: Citalopram 20 MG Tab PO SCH (08:14)
[2017-08-06] MEDS: Bisacodyl 10 MG Supp RECTAL PRN (11:25)
[2017-08-06] MEDS: SEROQUEL 400 MG PO SCH (19:25)
[2017-08-06] MEDS: Erythromycin Base 0.5% Ophth Oint 3.5 GM Tube EYEBOTH SCH (19:25)
[2017-08-07] MEDS: Citalopram 20 MG Tab PO SCH (07:42)
[2017-08-07] MEDS: Non-Formulary Medication 1 Each (Metronidazole [Metronidazole 0.75% Cream] 1 APPLIC) TOP SCH (07:43)
[2017-08-07] MEDS: Acetaminophen 650 MG Tab.ER PO SCH ×2 (07:45→19:33)
[2017-08-07] MEDS: LORazepam 0.5 MG Tab PO PRN ×2 (08:47→19:34)
[2017-08-07] MEDS: Erythromycin Base 0.5% Ophth Oint 3.5 GM Tube EYEBOTH SCH (19:33)
[2017-08-07] MEDS: SEROQUEL 400 MG PO SCH (19:35)
[2017-08-07] MEDS: Acetaminophen/HYDROcodone 325-5 MG Tab PO PRN (19:35)
[2017-08-08] MEDS: Non-Formulary Medication 1 Each (Metronidazole [Metronidazole 0.75% Cream] 1 APPLIC) TOP SCH (10:46)
[2017-08-08] MEDS: Citalopram 20 MG Tab PO SCH (10:46)
[2017-08-08] MEDS: Acetaminophen 650 MG Tab.ER PO SCH ×2 (10:47→19:28)
[2017-08-08] MEDS: LORazepam 0.5 MG Tab PO PRN (11:03)
[2017-08-08] MEDS ORDERED: QUEtiapine Fumarate 200 MG TABLET PO ONE (12:20)
[2017-08-08] MEDS: LORazepam 2 MG/ML SDV SUBCUT PRN (16:57)
[2017-08-08] MEDS: fentaNYL 25 MCG/HR Transdermal Patch TRDERM SCH (19:25)
[2017-08-08] MEDS: Erythromycin Base 0.5% Ophth Oint 3.5 GM Tube EYEBOTH SCH (19:26)
[2017-08-08] MEDS: SEROQUEL 400 MG PO SCH (19:27)
[2017-08-08] MEDS: Acetaminophen/HYDROcodone 325-5 MG Tab PO PRN (19:28)
[2017-08-09] MEDS: Citalopram 20 MG Tab PO SCH (08:37)
[2017-08-09] MEDS: Non-Formulary Medication 1 Each (Metronidazole [Metronidazole 0.75% Cream] 1 APPLIC) TOP SCH (08:37)
[2017-08-09] MEDS: Acetaminophen 650 MG Tab.ER PO SCH ×2 (08:38→20:18)
[2017-08-09] MEDS: LORazepam 0.5 MG Tab PO PRN (20:19)
[2017-08-09] MEDS: Acetaminophen/HYDROcodone 325-5 MG Tab PO PRN (20:19)
[2017-08-09] MEDS: SEROQUEL 400 MG PO SCH (20:20)
[2017-08-09] MEDS: Erythromycin Base 0.5% Ophth Oint 3.5 GM Tube EYEBOTH SCH (20:27)
[2017-08-10] MEDS: Citalopram 20 MG Tab PO SCH (09:56)
[2017-08-10] MEDS: Acetaminophen/HYDROcodone 325-5 MG Tab PO PRN (09:56)
[2017-08-10] MEDS: Acetaminophen 650 MG Tab.ER PO SCH ×2 (09:57→19:37)
[2017-08-10] MEDS: Non-Formulary Medication 1 Each (Metronidazole [Metronidazole 0.75% Cream] 1 APPLIC) TOP SCH (10:00)
[2017-08-10] MEDS: Erythromycin Base 0.5% Ophth Oint 3.5 GM Tube EYEBOTH SCH (19:37)
[2017-08-10] MEDS: SEROQUEL 400 MG PO SCH (19:37)
[2017-08-11] MEDS: Non-Formulary Medication 1 Each (Metronidazole [Metronidazole 0.75% Cream] 1 APPLIC) TOP SCH (08:28)
[2017-08-11] MEDS: Acetaminophen 650 MG Tab.ER PO SCH ×2 (08:28→19:26)
[2017-08-11] MEDS: Citalopram 20 MG Tab PO SCH (08:28)
--- NOTE | 2017-08-11 15:41 | PCM.PN ---
- General Info Date of Service: 08/11/17 Subjective Update: Patient responsive to stimuli. He does not respond to voice command but to the touch of the shoulder. He appears comfortable and does eat when he chooses to or will push the food away. He does appear thinner today than he has the past week. No changes to care at this time. Functional Status: Reports: Pain Controlled, Tolerating Diet - Review of Systems General: Reports: Weakness Pulmonary: Reports: No Symptoms Cardiovascular: Reports: No Symptoms - Patient Data Vitals - Most Recent: Last Vital Signs Temp 36.3 C 08/10/17 10:00 Pulse 74 08/10/17 10:00 Resp 14 08/07/17 10:00 BP 135/71 08/10/17 10:00 Pulse Ox 96 08/10/17 10:00 Weight - Most Recent: 60.237 kg Med Orders - Current: Current Medications Acetaminophen (Tylenol Arthritis Pain) 650 mg PO BID [facility] Last Admin: 08/11/17 08:28 Dose: 650 mg Hydrocodone Bitart/Acetaminophen ([place] 325-5 Mg) 1 tab PO Q4H PRN PRN Reason: Pain Last Admin: 08/10/17 09:56 Dose: 1 tab Bisacodyl (Dulcolax) 10 mg RECTAL DAILY PRN PRN Reason: Constipation Last Admin: 08/06/17 11:25 Dose: 10 mg Citalopram Hydrobromide (Celexa) 20 mg PO DAILY [facility] Last Admin: 08/11/17 08:28 Dose: 20 mg Erythromycin (Erythromycin 0.5% Ophth Oint) 3.5 gm EYEBOTH BEDTIME [facility] Last Admin: 08/10/17 19:37 Dose: 1 applic Fentanyl (Duragesic) 25 mcg TRDERM Q72H [facility] Last Admin: 08/08/17 19:25 Dose: 25 mcg Lorazepam (Ativan) 0.5 mg PO Q8HR PRN PRN Reason: Anxiety Last Admin: 08/09/17 20:19 Dose: 0.5 mg Lorazepam (Ativan) 1 mg SUBCUT Q4HR PRN PRN Reason: Anxiety Last Admin: 08/08/17 16:57 Dose: 1 mg Miscellaneous Information (Remove Patch) 1 ea TRDERM Q72H [facility] Last Admin: 08/08/17 19:27 Dose: 1 ea Morphine Sulfate (Morphine) 2 mg SUBCUT Q4H PRN PRN Reason: Pain Non-Formulary Medication (Metronidazole [Metronidazole 0.75% Cream]) 1 applic TOP DAILY [facility] Last Admin: 08/11/17 08:28 Dose: 1 applic Seroquel 400mg (Tablets) 1 each PO BEDTIME [facility] Last Admin: 08/10/17 19:37 Dose: 1 each Quetiapine Fumarate (Seroquel) 50 mg PO BEDTIME [facility] Last Admin: 08/10/17 19:37 Dose: 50 mg Quetiapine Fumarate (Seroquel) 50 mg PO DAILY@0800,1200 [facility] Last Admin: 08/11/17 12:16 Dose: 50 mg Quetiapine Fumarate (Seroquel) 200 mg PO DAILY@0800,1200 [facility] Last Admin: 08/11/17 12:16 Dose: 200 mg Scopolamine (Transderm-Scop) 1.5 mg TOP Q72H PRN PRN Reason: Other Senna/Docusate Sodium (Senna Plus) 1 tab PO BID [facility] Last Admin: 08/11/17 08:28 Dose: 1 tab Discontinued Medications Acetaminophen (Tylenol) 650 mg PO BID [facility] Last Admin: 08/01/17 19:55 Dose: 650 mg Fentanyl (Duragesic) 25 mcg TRDERM Q72H [facility] Last Admin: 07/21/17 11:31 Dose: Not Given Fentanyl (Duragesic) 25 mcg TRDERM Q72H [facility] Last Admin: 07/28/17 17:32 Dose: Not Given Lorazepam (Ativan) Confirm Administered Dose 2 mg .ROUTE .STK-MED ONE Stop: 07/25/17 17:35 Last Admin: 07/25/17 17:35 Dose: 2 mg Lorazepam (Ativan) 1 mg IM ONETIME ONE Stop: 07/25/17 17:39 Last Admin: 07/25/17 18:36 Dose: Not Given Miscellaneous Information (Remove Patch) 1 ea TRDERM Q72H [facility] Last Admin: 07/28/17 17:33 Dose: Not Given Quetiapine Fumarate (Seroquel) 200 mg PO DAILY@0800,1200 [facility] Last Admin: 07/21/17 12:18 Dose: 250 mg Quetiapine Fumarate (Seroquel) Confirm Administered Dose 50 mg .ROUTE .STK-MED ONE Stop: 07/21/17 12:17 Last Admin: 07/21/17 15:07 Dose: Not Given Quetiapine Fumarate (Quetiapine Fumarate) Confirm Administered Dose 200 mg PO .STK-MED ONE Stop: 07/21/17 12:17 Last Admin: 07/21/17 15:07 Dose: Not Given Quetiapine Fumarate (Quetiapine Fumarate) Confirm Administered Dose 400 mg PO .STK-MED ONE Stop: 07/22/17 21:19 Last Admin: 07/22/17 21:37 Dose: Not Given Quetiapine Fumarate (Quetiapine Fumarate) Confirm Administered Dose 400 mg PO .STK-MED ONE Stop: 07/24/17 19:52 Last Admin: 07/25/17 12:34 Dose: Not Given Quetiapine Fumarate (Quetiapine Fumarate) Confirm Administered Dose 200 mg PO .STK-MED ONE Stop: 07/25/17 08:45 Last Admin: 07/25/17 11:36 Dose: Not Given Quetiapine Fumarate (Quetiapine Fumarate) Confirm Administered Dose 200 mg PO .STK-MED ONE Stop: 07/27/17 07:21 Last Admin: 07/27/17 16:55 Dose: Not Given Quetiapine Fumarate (Quetiapine Fumarate) Confirm Administered Dose 200 mg PO .STK-MED ONE Stop: 08/08/17 12:21 Last Admin: 08/08/17 13:36 Dose: Not Given - Exam General: Cooperative HEENT: Pupils Equal, Pupils Reactive, EOMI Neck: Supple Lungs: Clear to Auscultation, Normal Respiratory Effort Cardiovascular: Regular Rate, Regular Rhythm GI/Abdominal Exam: Abnormal Bowel Sounds (decreased bowel sounds) Peripheral Pulses: 2+: Dorsalis Pedis (L), Dorsalis Pedis (R) Skin: Warm, Dry, Intact - Problem List & Annotations (1) H/O subdural hemorrhage SNOMED Code(s): 843678144 Code(s): Z86.79 - PERSONAL HISTORY OF OTHER DISEASES OF THE CIRCULATORY SYSTEM Status: Chronic Current Visit: Yes (2) Comfort measures only status SNOMED Code(s): 07197440812986 Code(s): Z51.5 - ENCOUNTER FOR PALLIATIVE CARE Status: Chronic Current Visit: Yes (3) Neurogenic bladder SNOMED Code(s): 225456240 Code(s): N31.9 - NEUROMUSCULAR DYSFUNCTION OF BLADDER, UNSPECIFIED Status: Chronic Current Visit: Yes (4) Palliative care patient SNOMED Code(s): 664273508 Code(s): Z51.5 - ENCOUNTER FOR PALLIATIVE CARE Status: Chronic Priority: High Current Visit: Yes (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 Code(s): F03.91 - UNSPECIFIED DEMENTIA WITH BEHAVIORAL DISTURBANCE Status: Chronic Priority: High Current Visit: Yes Qualifiers: Dementia behavioral disturbance: with behavioral disturbance Qualified Code (s): F02.81 - Dementia in other diseases classified elsewhere with behavioral disturbance (6) Diabetes mellitus SNOMED Code(s): 10153022 Code(s): E11.9 - TYPE 2 DIABETES MELLITUS WITHOUT COMPLICATIONS Status: Chronic Priority: Medium Current Visit: Yes Qualifiers: Diabetes mellitus type: type 2 Diabetes mellitus complication status: with hyperglycemia Diabetes mellitus [facility] insulin use: without [facility] use Qualified Code(s): E11.65 - Type 2 diabetes mellitus with hyperglycemia (7) Paranoid schizophrenia, chronic condition SNOMED Code(s): 73235597 Code(s): F20.0 - PARANOID SCHIZOPHRENIA Status: Chronic Priority: High Current Visit: Yes - Problem List Review Problem List Initiated/Reviewed/Updated: Yes - My Orders Last 24 Hours: My Active Orders 08/11/17 10:00 Insert Smith Catheter [Insert Urinary Catheter] [OM.PC] Q24H - Plan Plan:: Patient admitted to Respite care for continued comfort care management and support. Guardian aware and family aware of patient status and slow decline. Continued comfort cares and monitoring. No changes to plan of care. 08/12/17 Patient is stable. We will not change any current management or meds. Continue feeding as tolerated and as comfortable as patient desires. Continue comfort cares.
[2017-08-11] MEDS: LORazepam 2 MG/ML SDV SUBCUT PRN (17:19)
[2017-08-11] MEDS: Acetaminophen/HYDROcodone 325-5 MG Tab PO PRN (19:23)
[2017-08-11] MEDS: fentaNYL 25 MCG/HR Transdermal Patch TRDERM SCH (19:24)
[2017-08-11] MEDS: Erythromycin Base 0.5% Ophth Oint 3.5 GM Tube EYEBOTH SCH (19:24)
[2017-08-11] MEDS: SEROQUEL 400 MG PO SCH (19:25)
[2017-08-11] MEDS: LORazepam 0.5 MG Tab PO PRN (19:26)
[2017-08-12] MEDS: Acetaminophen/HYDROcodone 325-5 MG Tab PO PRN (07:57)
[2017-08-12] MEDS: Non-Formulary Medication 1 Each (Metronidazole [Metronidazole 0.75% Cream] 1 APPLIC) TOP SCH (07:58)
[2017-08-12] MEDS: Citalopram 20 MG Tab PO SCH (07:58)
[2017-08-12] MEDS: Acetaminophen 650 MG Tab.ER PO SCH ×2 (07:59→19:50)
[2017-08-12] MEDS: SEROQUEL 400 MG PO SCH (19:50)
[2017-08-12] MEDS: Erythromycin Base 0.5% Ophth Oint 3.5 GM Tube EYEBOTH SCH ×2 (19:50→19:53)
[2017-08-12] MEDS: LORazepam 0.5 MG Tab PO PRN (20:11)
[2017-08-13] MEDS: Non-Formulary Medication 1 Each (Metronidazole [Metronidazole 0.75% Cream] 1 APPLIC) TOP SCH (08:41)
[2017-08-13] MEDS: Citalopram 20 MG Tab PO SCH (08:45)
[2017-08-13] MEDS: Acetaminophen 650 MG Tab.ER PO SCH ×2 (08:46→19:38)
[2017-08-13] MEDS: Acetaminophen/HYDROcodone 325-5 MG Tab PO PRN (19:35)
[2017-08-13] MEDS: LORazepam 0.5 MG Tab PO PRN (19:36)
[2017-08-13] MEDS: SEROQUEL 400 MG PO SCH (19:37)
[2017-08-13] MEDS: Erythromycin Base 0.5% Ophth Oint 3.5 GM Tube EYEBOTH SCH (19:42)
[2017-08-14] MEDS: Acetaminophen 650 MG Tab.ER PO SCH (17:51)
[2017-08-14] MEDS: Citalopram 20 MG Tab PO SCH (17:55)
[2017-08-14] MEDS: Non-Formulary Medication 1 Each (Metronidazole [Metronidazole 0.75% Cream] 1 APPLIC) TOP SCH (18:17)
[2017-08-14] MEDS: Erythromycin Base 0.5% Ophth Oint 3.5 GM Tube EYEBOTH SCH (22:00)
[2017-08-14] MEDS: fentaNYL 25 MCG/HR Transdermal Patch TRDERM SCH (22:45)
[2017-08-15] MEDS: SEROQUEL 400 MG PO SCH ×2 (06:47→20:12)
[2017-08-15] MEDS: Acetaminophen 650 MG Tab.ER PO SCH ×3 (06:49→20:13)
[2017-08-15] MEDS: Acetaminophen/HYDROcodone 325-5 MG Tab PO PRN (12:00)
[2017-08-15] MEDS: Non-Formulary Medication 1 Each (Metronidazole [Metronidazole 0.75% Cream] 1 APPLIC) TOP SCH (12:00)
[2017-08-15] MEDS: Citalopram 20 MG Tab PO SCH (12:00)
[2017-08-15] MEDS: Erythromycin Base 0.5% Ophth Oint 3.5 GM Tube EYEBOTH SCH (20:12)
[2017-08-16] MEDS: Acetaminophen/HYDROcodone 325-5 MG Tab PO PRN (09:00)
[2017-08-16] MEDS: Citalopram 20 MG Tab PO SCH (09:00)
[2017-08-16] MEDS: Acetaminophen 650 MG Tab.ER PO SCH ×2 (09:00→23:57)
[2017-08-16] MEDS: Non-Formulary Medication 1 Each (Metronidazole [Metronidazole 0.75% Cream] 1 APPLIC) TOP SCH (10:00)
[2017-08-16] MEDS: Erythromycin Base 0.5% Ophth Oint 3.5 GM Tube EYEBOTH SCH (20:00)
[2017-08-16] MEDS: SEROQUEL 400 MG PO SCH (23:57)
[2017-08-17] MEDS: Acetaminophen/HYDROcodone 325-5 MG Tab PO PRN ×2 (02:59→20:43)
[2017-08-17] MEDS: LORazepam 0.5 MG Tab PO PRN ×2 (03:00→20:43)
[2017-08-17] MEDS: SEROQUEL 400 MG PO SCH ×2 (03:01→20:32)
--- NOTE | 2017-08-17 11:16 | PCM.PN ---
- General Info Date of Service: 08/17/17 Subjective Update: Patient does respond to tactile stimuli and continues to have meals when he wants. He is lethargic and obtunded at times but does wake to meals. He does not eat very much and will push the staff away when he chooses to stop eating. He eats once or twice a day only and does appear to be losing muscle mass and does appear weaker. He does not appear to be in any discomfort. Functional Status: Reports: Pain Controlled, Tolerating Diet - Review of Systems General: Reports: Weakness Pulmonary: Reports: No Symptoms Cardiovascular: Reports: No Symptoms Gastrointestinal: Reports: No Symptoms Genitourinary: Reports: No Symptoms Musculoskeletal: Reports: No Symptoms Skin: Reports: No Symptoms Neurological: Reports: Weakness - Patient Data Vitals - Most Recent: Last Vital Signs Temp 36.3 C 08/10/17 10:00 Pulse 74 08/10/17 10:00 Resp 14 08/07/17 10:00 BP 135/71 08/10/17 10:00 Pulse Ox 96 08/10/17 10:00 Weight - Most Recent: 60.237 kg I&O - Last 24 Hours: Intake & Output 08/16/17 08/17/17 08/17/17 22:59 06:59 14:59 Output Total 175 Balance -175 Med Orders - Current: Current Medications Acetaminophen (Tylenol Arthritis Pain) 650 mg PO BID [facility] Last Admin: 08/16/17 23:57 Dose: Not Given Hydrocodone Bitart/Acetaminophen ([place] 325-5 Mg) 1 tab PO Q4H PRN PRN Reason: Pain Last Admin: 08/17/17 02:59 Dose: 1 tab Bisacodyl (Dulcolax) 10 mg RECTAL DAILY PRN PRN Reason: Constipation Last Admin: 08/06/17 11:25 Dose: 10 mg Citalopram Hydrobromide (Celexa) 20 mg PO DAILY [facility] Last Admin: 08/16/17 09:00 Dose: 20 mg Erythromycin (Erythromycin 0.5% Ophth Oint) 3.5 gm EYEBOTH BEDTIME [facility] Last Admin: 08/16/17 20:00 Dose: 1 applic Fentanyl (Duragesic) 25 mcg TRDERM Q72H [facility] Last Admin: 08/14/17 22:45 Dose: 25 mcg Lorazepam (Ativan) 0.5 mg PO Q8HR PRN PRN Reason: Anxiety Last Admin: 08/17/17 03:00 Dose: 0.5 mg Lorazepam (Ativan) 1 mg SUBCUT Q4HR PRN PRN Reason: Anxiety Last Admin: 08/11/17 17:19 Dose: 1 mg Miscellaneous Information (Remove Patch) 1 ea TRDERM Q72H [facility] Last Admin: 08/15/17 06:47 Dose: 1 ea Morphine Sulfate (Morphine) 2 mg SUBCUT Q4H PRN PRN Reason: Pain Non-Formulary Medication (Metronidazole [Metronidazole 0.75% Cream]) 1 applic TOP DAILY [facility] Last Admin: 08/16/17 10:00 Dose: 1 applic Seroquel 400mg (Tablets) 1 each PO BEDTIME [facility] Last Admin: 08/17/17 03:01 Dose: 1 each Quetiapine Fumarate (Seroquel) 50 mg PO BEDTIME [facility] Last Admin: 08/16/17 23:57 Dose: Not Given Quetiapine Fumarate (Seroquel) 50 mg PO DAILY@0800,1200 [facility] Last Admin: 08/17/17 03:00 Dose: 50 mg Quetiapine Fumarate (Seroquel) 200 mg PO DAILY@0800,1200 [facility] Last Admin: 08/16/17 16:24 Dose: Not Given Scopolamine (Transderm-Scop) 1.5 mg TOP Q72H PRN PRN Reason: Other Senna/Docusate Sodium (Senna Plus) 1 tab PO BID [facility] Last Admin: 08/16/17 23:57 Dose: Not Given Discontinued Medications Acetaminophen (Tylenol) 650 mg PO BID [facility] Last Admin: 08/01/17 19:55 Dose: 650 mg Fentanyl (Duragesic) 25 mcg TRDERM Q72H [facility] Last Admin: 07/21/17 11:31 Dose: Not Given Fentanyl (Duragesic) 25 mcg TRDERM Q72H [facility] Last Admin: 07/28/17 17:32 Dose: Not Given Lorazepam (Ativan) Confirm Administered Dose 2 mg .ROUTE .STK-MED ONE Stop: 07/25/17 17:35 Last Admin: 07/25/17 17:35 Dose: 2 mg Lorazepam (Ativan) 1 mg IM ONETIME ONE Stop: 07/25/17 17:39 Last Admin: 07/25/17 18:36 Dose: Not Given Miscellaneous Information (Remove Patch) 1 ea TRDERM Q72H [facility] Last Admin: 07/28/17 17:33 Dose: Not Given Quetiapine Fumarate (Seroquel) 200 mg PO DAILY@0800,1200 [facility] Last Admin: 07/21/17 12:18 Dose: 250 mg Quetiapine Fumarate (Seroquel) Confirm Administered Dose 50 mg .ROUTE .STK-MED ONE Stop: 07/21/17 12:17 Last Admin: 07/21/17 15:07 Dose: Not Given Quetiapine Fumarate (Quetiapine Fumarate) Confirm Administered Dose 200 mg PO .STK-MED ONE Stop: 07/21/17 12:17 Last Admin: 07/21/17 15:07 Dose: Not Given Quetiapine Fumarate (Quetiapine Fumarate) Confirm Administered Dose 400 mg PO .STK-MED ONE Stop: 07/22/17 21:19 Last Admin: 07/22/17 21:37 Dose: Not Given Quetiapine Fumarate (Quetiapine Fumarate) Confirm Administered Dose 400 mg PO .STK-MED ONE Stop: 07/24/17 19:52 Last Admin: 07/25/17 12:34 Dose: Not Given Quetiapine Fumarate (Quetiapine Fumarate) Confirm Administered Dose 200 mg PO .STK-MED ONE Stop: 07/25/17 08:45 Last Admin: 07/25/17 11:36 Dose: Not Given Quetiapine Fumarate (Quetiapine Fumarate) Confirm Administered Dose 200 mg PO .STK-MED ONE Stop: 07/27/17 07:21 Last Admin: 07/27/17 16:55 Dose: Not Given Quetiapine Fumarate (Quetiapine Fumarate) Confirm Administered Dose 200 mg PO .STK-MED ONE Stop: 08/08/17 12:21 Last Admin: 08/08/17 13:36 Dose: Not Given - Exam General: Lethargic, Obtunded HEENT: Pupils Equal, Pupils Reactive Neck: Supple Lungs: Clear to Auscultation, Normal Respiratory Effort Cardiovascular: Regular Rate, Regular Rhythm GI/Abdominal Exam: Abnormal Bowel Sounds (decreased) Extremities: Normal Inspection Skin: Warm, Dry, Intact - Problem List & Annotations (1) H/O subdural hemorrhage SNOMED Code(s): 408152465 Code(s): Z86.79 - PERSONAL HISTORY OF OTHER DISEASES OF THE CIRCULATORY SYSTEM Status: Chronic Current Visit: Yes (2) Comfort measures only status SNOMED Code(s): 47395845094520 Code(s): Z51.5 - ENCOUNTER FOR PALLIATIVE CARE Status: Chronic Current Visit: Yes (3) Neurogenic bladder SNOMED Code(s): 101493330 Code(s): N31.9 - NEUROMUSCULAR DYSFUNCTION OF BLADDER, UNSPECIFIED Status: Chronic Current Visit: Yes (4) Palliative care patient SNOMED Code(s): 832184486 Code(s): Z51.5 - ENCOUNTER FOR PALLIATIVE CARE Status: Chronic Priority: High Current Visit: Yes (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 Code(s): F03.91 - UNSPECIFIED DEMENTIA WITH BEHAVIORAL DISTURBANCE Status: Chronic Priority: High Current Visit: Yes Qualifiers: Dementia behavioral disturbance: with behavioral disturbance Qualified Code (s): F02.81 - Dementia in other diseases classified elsewhere with behavioral disturbance (6) Diabetes mellitus SNOMED Code(s): 05556486 Code(s): E11.9 - TYPE 2 DIABETES MELLITUS WITHOUT COMPLICATIONS Status: Chronic Priority: Medium Current Visit: Yes Qualifiers: Diabetes mellitus type: type 2 Diabetes mellitus complication status: with hyperglycemia Diabetes mellitus half-way insulin use: without half-way use Qualified Code(s): E11.65 - Type 2 diabetes mellitus with hyperglycemia (7) Paranoid schizophrenia, chronic condition SNOMED Code(s): 05668010 Code(s): F20.0 - PARANOID SCHIZOPHRENIA Status: Chronic Priority: High Current Visit: Yes - Problem List Review Problem List Initiated/Reviewed/Updated: Yes - My Orders Last 24 Hours: My Active Orders 08/17/17 10:00 Insert Smith Catheter [Insert Urinary Catheter] [OM.PC] Q24H - Plan Plan:: Patient admitted to Respite care for continued comfort care management and support. Guardian aware and family aware of patient status and slow decline. Continued comfort cares and monitoring. No changes to plan of care. 08/12/17 Patient is stable. We will not change any current management or meds. Continue feeding as tolerated and as comfortable as patient desires. Continue comfort cares. 08/17/17 Patient continues with comfort cares. Continue regular feeding as tolerated. No changes to medications.
[2017-08-17] MEDS: Acetaminophen 650 MG Tab.ER PO SCH (20:32)
[2017-08-17] MEDS: Erythromycin Base 0.5% Ophth Oint 3.5 GM Tube EYEBOTH SCH (20:33)
[2017-08-17] MEDS: fentaNYL 25 MCG/HR Transdermal Patch TRDERM SCH (20:37)
[2017-08-18] MEDS: Non-Formulary Medication 1 Each (Metronidazole [Metronidazole 0.75% Cream] 1 APPLIC) TOP SCH ×2 (07:12→08:28)
[2017-08-18] MEDS: Citalopram 20 MG Tab PO SCH ×2 (07:12→08:24)
[2017-08-18] MEDS: Acetaminophen 650 MG Tab.ER PO SCH ×3 (07:12→20:51)
[2017-08-18] MEDS: SEROQUEL 400 MG PO SCH (20:51)
[2017-08-18] MEDS: Erythromycin Base 0.5% Ophth Oint 3.5 GM Tube EYEBOTH SCH (20:54)
[2017-08-19] MEDS: Acetaminophen 650 MG Tab.ER PO SCH ×2 (07:22→19:38)
[2017-08-19] MEDS: Citalopram 20 MG Tab PO SCH (07:22)
[2017-08-19] MEDS: Non-Formulary Medication 1 Each (Metronidazole [Metronidazole 0.75% Cream] 1 APPLIC) TOP SCH (07:22)
[2017-08-19] MEDS: SEROQUEL 400 MG PO SCH (19:38)
[2017-08-19] MEDS: Acetaminophen/HYDROcodone 325-5 MG Tab PO PRN (19:38)
[2017-08-19] MEDS: LORazepam 0.5 MG Tab PO PRN (19:38)
[2017-08-19] MEDS: Erythromycin Base 0.5% Ophth Oint 3.5 GM Tube EYEBOTH SCH (19:38)
[2017-08-20] MEDS: Citalopram 20 MG Tab PO SCH (10:45)
[2017-08-20] MEDS: Acetaminophen 650 MG Tab.ER PO SCH ×2 (10:45→23:18)
[2017-08-20] MEDS: Non-Formulary Medication 1 Each (Metronidazole [Metronidazole 0.75% Cream] 1 APPLIC) TOP SCH (16:00)
[2017-08-20] MEDS: LORazepam 0.5 MG Tab PO PRN (20:00)
[2017-08-20] MEDS: SEROQUEL 400 MG PO SCH (23:17)
[2017-08-20] MEDS: Erythromycin Base 0.5% Ophth Oint 3.5 GM Tube EYEBOTH SCH (23:17)
[2017-08-20] MEDS: Acetaminophen/HYDROcodone 325-5 MG Tab PO PRN (23:19)
[2017-08-20] MEDS: fentaNYL 25 MCG/HR Transdermal Patch TRDERM SCH (23:21)
[2017-08-21] MEDS: Non-Formulary Medication 1 Each (Metronidazole [Metronidazole 0.75% Cream] 1 APPLIC) TOP SCH (11:41)
[2017-08-21] MEDS: Acetaminophen 650 MG Tab.ER PO SCH ×2 (11:42→20:18)
[2017-08-21] MEDS: Citalopram 20 MG Tab PO SCH (13:04)
[2017-08-21] MEDS: LORazepam 0.5 MG Tab PO PRN (20:19)
[2017-08-21] MEDS: Acetaminophen/HYDROcodone 325-5 MG Tab PO PRN (20:20)
[2017-08-21] MEDS: SEROQUEL 400 MG PO SCH (20:25)
[2017-08-21] MEDS: Erythromycin Base 0.5% Ophth Oint 3.5 GM Tube EYEBOTH SCH (20:25)
[2017-08-22] MEDS: Citalopram 20 MG Tab PO SCH (09:16)
[2017-08-22] MEDS: Non-Formulary Medication 1 Each (Metronidazole [Metronidazole 0.75% Cream] 1 APPLIC) TOP SCH (09:16)
[2017-08-22] MEDS: Acetaminophen 650 MG Tab.ER PO SCH ×2 (09:18→17:36)
[2017-08-22] MEDS: SEROQUEL 400 MG PO SCH ×2 (17:36→21:27)
[2017-08-22] MEDS: Acetaminophen/HYDROcodone 325-5 MG Tab PO PRN (17:38)
[2017-08-22] MEDS: LORazepam 0.5 MG Tab PO PRN (17:44)
[2017-08-22] MEDS: Erythromycin Base 0.5% Ophth Oint 3.5 GM Tube EYEBOTH SCH (21:27)
[2017-08-23] MEDS: Citalopram 20 MG Tab PO SCH (09:00)
[2017-08-23] MEDS: LORazepam 0.5 MG Tab PO PRN ×2 (09:00→17:54)
[2017-08-23] MEDS: Acetaminophen 650 MG Tab.ER PO SCH ×2 (09:00→21:07)
[2017-08-23] MEDS: Acetaminophen/HYDROcodone 325-5 MG Tab PO PRN ×2 (09:30→17:53)
[2017-08-23] MEDS: Non-Formulary Medication 1 Each (Metronidazole [Metronidazole 0.75% Cream] 1 APPLIC) TOP SCH (21:06)
[2017-08-23] MEDS: Erythromycin Base 0.5% Ophth Oint 3.5 GM Tube EYEBOTH SCH (21:06)
[2017-08-23] MEDS: SEROQUEL 400 MG PO SCH (21:07)
[2017-08-23] MEDS: fentaNYL 25 MCG/HR Transdermal Patch TRDERM SCH (21:11)
[2017-08-24] MEDS: Acetaminophen/HYDROcodone 325-5 MG Tab PO PRN ×2 (03:52→22:15)
--- NOTE | 2017-08-24 11:53 | PCM.PN ---
- General Info Date of Service: 08/24/17 Subjective Update: Patient alert and does get up to eat by choice. Other days he refuses. He appears thin and tired. He appears comfortable with no concerns. Functional Status: Reports: Pain Controlled, Tolerating Diet - Review of Systems General: Reports: Weakness, Other (poor historian, does not respond - only when he chooses and sometimes words are incongruent) HEENT: Reports: No Symptoms Pulmonary: Reports: No Symptoms Cardiovascular: Reports: No Symptoms - Patient Data Vitals - Most Recent: Last Vital Signs Temp 36.5 C 08/21/17 15:48 Pulse 73 08/21/17 15:48 Resp 17 08/21/17 15:48 BP 160/65 H 08/21/17 15:48 Pulse Ox 73 L 08/21/17 15:48 Weight - Most Recent: 60.237 kg Med Orders - Current: Current Medications Acetaminophen (Tylenol Arthritis Pain) 650 mg PO BID [facility] Last Admin: 08/23/17 21:07 Dose: 650 mg Hydrocodone Bitart/Acetaminophen ([place] 325-5 Mg) 1 tab PO Q4H PRN PRN Reason: Pain Last Admin: 08/24/17 03:52 Dose: 1 tab Bisacodyl (Dulcolax) 10 mg RECTAL DAILY PRN PRN Reason: Constipation Last Admin: 08/06/17 11:25 Dose: 10 mg Citalopram Hydrobromide (Celexa) 20 mg PO DAILY [facility] Last Admin: 08/23/17 09:00 Dose: 20 mg Erythromycin (Erythromycin 0.5% Ophth Oint) 3.5 gm EYEBOTH BEDTIME [facility] Last Admin: 08/23/17 21:06 Dose: Not Given Fentanyl (Duragesic) 25 mcg TRDERM Q72H [facility] Last Admin: 08/23/17 21:11 Dose: 25 mcg Lorazepam (Ativan) 0.5 mg PO Q8HR PRN PRN Reason: Anxiety Last Admin: 08/23/17 17:54 Dose: 0.5 mg Lorazepam (Ativan) 1 mg SUBCUT Q4HR PRN PRN Reason: Anxiety Last Admin: 08/11/17 17:19 Dose: 1 mg Miscellaneous Information (Remove Patch) 1 ea TRDERM Q72H [facility] Last Admin: 08/23/17 21:07 Dose: 1 ea Morphine Sulfate (Morphine) 2 mg SUBCUT Q4H PRN PRN Reason: Pain Non-Formulary Medication (Metronidazole [Metronidazole 0.75% Cream]) 1 applic TOP DAILY [facility] Last Admin: 08/23/17 21:06 Dose: Not Given Seroquel 400mg (Tablets) 1 each PO BEDTIME [facility] Last Admin: 08/23/17 21:07 Dose: 1 each Quetiapine Fumarate (Seroquel) 50 mg PO BEDTIME [facility] Last Admin: 08/23/17 21:07 Dose: 50 mg Quetiapine Fumarate (Seroquel) 50 mg PO DAILY@0800,1200 [facility] Last Admin: 08/23/17 12:33 Dose: 50 mg Quetiapine Fumarate (Seroquel) 200 mg PO DAILY@0800,1200 [facility] Last Admin: 08/23/17 12:34 Dose: 200 mg Scopolamine (Transderm-Scop) 1.5 mg TOP Q72H PRN PRN Reason: Other Senna/Docusate Sodium (Senna Plus) 1 tab PO BID [facility] Last Admin: 08/23/17 21:07 Dose: 1 tab Discontinued Medications Acetaminophen (Tylenol) 650 mg PO BID [facility] Last Admin: 08/01/17 19:55 Dose: 650 mg Fentanyl (Duragesic) 25 mcg TRDERM Q72H [facility] Last Admin: 07/21/17 11:31 Dose: Not Given Fentanyl (Duragesic) 25 mcg TRDERM Q72H [facility] Last Admin: 07/28/17 17:32 Dose: Not Given Lorazepam (Ativan) Confirm Administered Dose 2 mg .ROUTE .STK-MED ONE Stop: 07/25/17 17:35 Last Admin: 07/25/17 17:35 Dose: 2 mg Lorazepam (Ativan) 1 mg IM ONETIME ONE Stop: 07/25/17 17:39 Last Admin: 07/25/17 18:36 Dose: Not Given Miscellaneous Information (Remove Patch) 1 ea TRDERM Q72H [facility] Last Admin: 07/28/17 17:33 Dose: Not Given Quetiapine Fumarate (Seroquel) 200 mg PO DAILY@0800,1200 [facility] Last Admin: 07/21/17 12:18 Dose: 250 mg Quetiapine Fumarate (Seroquel) Confirm Administered Dose 50 mg .ROUTE .STK-MED ONE Stop: 07/21/17 12:17 Last Admin: 07/21/17 15:07 Dose: Not Given Quetiapine Fumarate (Quetiapine Fumarate) Confirm Administered Dose 200 mg PO .STK-MED ONE Stop: 07/21/17 12:17 Last Admin: 07/21/17 15:07 Dose: Not Given Quetiapine Fumarate (Quetiapine Fumarate) Confirm Administered Dose 400 mg PO .STK-MED ONE Stop: 07/22/17 21:19 Last Admin: 07/22/17 21:37 Dose: Not Given Quetiapine Fumarate (Quetiapine Fumarate) Confirm Administered Dose 400 mg PO .STK-MED ONE Stop: 07/24/17 19:52 Last Admin: 07/25/17 12:34 Dose: Not Given Quetiapine Fumarate (Quetiapine Fumarate) Confirm Administered Dose 200 mg PO .STK-MED ONE Stop: 07/25/17 08:45 Last Admin: 07/25/17 11:36 Dose: Not Given Quetiapine Fumarate (Quetiapine Fumarate) Confirm Administered Dose 200 mg PO .STK-MED ONE Stop: 07/27/17 07:21 Last Admin: 07/27/17 16:55 Dose: Not Given Quetiapine Fumarate (Quetiapine Fumarate) Confirm Administered Dose 200 mg PO .STK-MED ONE Stop: 08/08/17 12:21 Last Admin: 08/08/17 13:36 Dose: Not Given - Exam General: Alert, Other (slow to respond, does track, will ask for certain foods, will push your hand away) Neck: Supple Lungs: Clear to Auscultation, Normal Respiratory Effort Cardiovascular: Regular Rate, Regular Rhythm GI/Abdominal Exam: Normal Bowel Sounds, Soft, Non-Tender Extremities: Normal Inspection, Non-Tender Peripheral Pulses: 2+: Dorsalis Pedis (L), Dorsalis Pedis (R) Skin: Warm, Dry, Intact Neurological: No New Focal Deficit - Problem List & Annotations (1) H/O subdural hemorrhage SNOMED Code(s): 574946322 Code(s): Z86.79 - PERSONAL HISTORY OF OTHER DISEASES OF THE CIRCULATORY SYSTEM Status: Chronic Current Visit: Yes (2) Comfort measures only status SNOMED Code(s): 26414470727353 Code(s): Z51.5 - ENCOUNTER FOR PALLIATIVE CARE Status: Chronic Current Visit: Yes (3) Neurogenic bladder SNOMED Code(s): 509156602 Code(s): N31.9 - NEUROMUSCULAR DYSFUNCTION OF BLADDER, UNSPECIFIED Status: Chronic Current Visit: Yes (4) Palliative care patient SNOMED Code(s): 494445147 Code(s): Z51.5 - ENCOUNTER FOR PALLIATIVE CARE Status: Chronic Priority: High Current Visit: Yes (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 Code(s): F03.91 - UNSPECIFIED DEMENTIA WITH BEHAVIORAL DISTURBANCE Status: Chronic Priority: High Current Visit: Yes Qualifiers: Dementia behavioral disturbance: with behavioral disturbance Qualified Code (s): F02.81 - Dementia in other diseases classified elsewhere with behavioral disturbance (6) Diabetes mellitus SNOMED Code(s): 05621688 Code(s): E11.9 - TYPE 2 DIABETES MELLITUS WITHOUT COMPLICATIONS Status: Chronic Priority: Medium Current Visit: Yes Qualifiers: Diabetes mellitus type: type 2 Diabetes mellitus complication status: with hyperglycemia Diabetes mellitus continuous churn buttermaker insulin use: without continuous churn buttermaker use Qualified Code(s): E11.65 - Type 2 diabetes mellitus with hyperglycemia (7) Paranoid schizophrenia, chronic condition SNOMED Code(s): 45547387 Code(s): F20.0 - PARANOID SCHIZOPHRENIA Status: Chronic Priority: High Current Visit: Yes - Problem List Review Problem List Initiated/Reviewed/Updated: Yes - My Orders Last 24 Hours: My Active Orders 08/24/17 10:00 Insert Smith Catheter [Insert Urinary Catheter] [OM.PC] Q24H - Plan Plan:: Patient admitted to Respite care for continued comfort care management and support. Guardian aware and family aware of patient status and slow decline. Continued comfort cares and monitoring. No changes to plan of care. 08/12/17 Patient is stable. We will not change any current management or meds. Continue feeding as tolerated and as comfortable as patient desires. Continue comfort cares. 08/17/17 Patient continues with comfort cares. Continue regular feeding as tolerated. No changes to medications. 08/24/17 Patient continues with current comfort cares. He eats regularly but small meals and pushes away when done. No changes to plan of care.
[2017-08-24] MEDS: Citalopram 20 MG Tab PO SCH (12:08)
[2017-08-24] MEDS: Non-Formulary Medication 1 Each (Metronidazole [Metronidazole 0.75% Cream] 1 APPLIC) TOP SCH (12:09)
[2017-08-24] MEDS: Acetaminophen 650 MG Tab.ER PO SCH ×2 (12:09→22:08)
[2017-08-24] MEDS: LORazepam 2 MG/ML SDV SUBCUT PRN (20:59)
[2017-08-24] MEDS: SEROQUEL 400 MG PO SCH (22:07)
[2017-08-24] MEDS: Erythromycin Base 0.5% Ophth Oint 3.5 GM Tube EYEBOTH SCH (22:10)
[2017-08-24] MEDS: LORazepam 0.5 MG Tab PO PRN (22:15)
[2017-08-25] MEDS: Non-Formulary Medication 1 Each (Metronidazole [Metronidazole 0.75% Cream] 1 APPLIC) TOP SCH (08:00)
[2017-08-25] MEDS: Acetaminophen 650 MG Tab.ER PO SCH ×3 (08:00→23:09)
[2017-08-25] MEDS: Citalopram 20 MG Tab PO SCH (08:00)
[2017-08-25] MEDS: Erythromycin Base 0.5% Ophth Oint 3.5 GM Tube EYEBOTH SCH (23:04)
[2017-08-25] MEDS: SEROQUEL 400 MG PO SCH ×2 (23:05→23:11)
[2017-08-26] MEDS: Citalopram 20 MG Tab PO SCH (07:13)
[2017-08-26] MEDS: Non-Formulary Medication 1 Each (Metronidazole [Metronidazole 0.75% Cream] 1 APPLIC) TOP SCH (07:13)
[2017-08-26] MEDS: Acetaminophen 650 MG Tab.ER PO SCH ×2 (07:13→21:20)
[2017-08-26] MEDS: fentaNYL 25 MCG/HR Transdermal Patch TRDERM SCH (21:15)
[2017-08-26] MEDS: SEROQUEL 400 MG PO SCH (21:15)
[2017-08-26] MEDS: Erythromycin Base 0.5% Ophth Oint 3.5 GM Tube EYEBOTH SCH (21:15)
[2017-08-27] MEDS: Acetaminophen 650 MG Tab.ER PO SCH ×2 (10:00→19:27)
[2017-08-27] MEDS: Non-Formulary Medication 1 Each (Metronidazole [Metronidazole 0.75% Cream] 1 APPLIC) TOP SCH (10:00)
[2017-08-27] MEDS: Acetaminophen/HYDROcodone 325-5 MG Tab PO PRN ×2 (10:00→19:27)
[2017-08-27] MEDS: Citalopram 20 MG Tab PO SCH (10:00)
[2017-08-27] MEDS: Erythromycin Base 0.5% Ophth Oint 3.5 GM Tube EYEBOTH SCH (19:22)
[2017-08-27] MEDS: LORazepam 0.5 MG Tab PO PRN (19:23)
[2017-08-27] MEDS: SEROQUEL 400 MG PO SCH (19:28)
[2017-08-28] MEDS: Citalopram 20 MG Tab PO SCH (08:35)
[2017-08-28] MEDS: Non-Formulary Medication 1 Each (Metronidazole [Metronidazole 0.75% Cream] 1 APPLIC) TOP SCH (10:07)
[2017-08-28] MEDS: Acetaminophen 650 MG Tab.ER PO SCH ×2 (10:10→20:45)
[2017-08-28] MEDS: Erythromycin Base 0.5% Ophth Oint 3.5 GM Tube EYEBOTH SCH (20:45)
[2017-08-28] MEDS: SEROQUEL 400 MG PO SCH (20:45)
[2017-08-28] MEDS: LORazepam 0.5 MG Tab PO PRN (21:27)
[2017-08-28] MEDS: Acetaminophen/HYDROcodone 325-5 MG Tab PO PRN (21:33)
[2017-08-29] MEDS: Acetaminophen 650 MG Tab.ER PO SCH ×2 (08:02→19:08)
[2017-08-29] MEDS: Citalopram 20 MG Tab PO SCH (08:02)
[2017-08-29] MEDS: Non-Formulary Medication 1 Each (Metronidazole [Metronidazole 0.75% Cream] 1 APPLIC) TOP SCH (08:02)
[2017-08-29] MEDS: Erythromycin Base 0.5% Ophth Oint 3.5 GM Tube EYEBOTH SCH (19:03)
[2017-08-29] MEDS: SEROQUEL 400 MG PO SCH (19:06)
[2017-08-29] MEDS: Acetaminophen/HYDROcodone 325-5 MG Tab PO PRN (19:09)
[2017-08-29] MEDS: fentaNYL 25 MCG/HR Transdermal Patch TRDERM SCH (19:21)
[2017-08-29] MEDS: LORazepam 2 MG/ML SDV SUBCUT PRN (20:47)
[2017-08-30] MEDS: Acetaminophen/HYDROcodone 325-5 MG Tab PO PRN ×3 (01:13→18:59)
[2017-08-30] MEDS: Acetaminophen 650 MG Tab.ER PO SCH ×2 (09:00→19:02)
[2017-08-30] MEDS: Citalopram 20 MG Tab PO SCH (09:00)
[2017-08-30] MEDS: LORazepam 0.5 MG Tab PO PRN (09:15)
[2017-08-30] MEDS: Non-Formulary Medication 1 Each (Metronidazole [Metronidazole 0.75% Cream] 1 APPLIC) TOP SCH (09:45)
[2017-08-30] MEDS: Erythromycin Base 0.5% Ophth Oint 3.5 GM Tube EYEBOTH SCH (19:02)
[2017-08-30] MEDS: SEROQUEL 400 MG PO SCH (19:02)
[2017-08-31] MEDS: Acetaminophen 650 MG Tab.ER PO SCH ×2 (08:30→19:42)
[2017-08-31] MEDS: Non-Formulary Medication 1 Each (Metronidazole [Metronidazole 0.75% Cream] 1 APPLIC) TOP SCH (08:30)
[2017-08-31] MEDS: Citalopram 20 MG Tab PO SCH (08:30)
[2017-08-31] MEDS: LORazepam 0.5 MG Tab PO PRN (08:30)
--- NOTE | 2017-08-31 11:11 | PCM.SN ---
- Free Text/Narrative Note: Patient is resting comfortably in bed. He did eat a little when fed by nursing. He does stare out the room and does not respond to commands but does respond with touch. He is in a sitting but reclined position in bed.
[2017-08-31] MEDS: Erythromycin Base 0.5% Ophth Oint 3.5 GM Tube EYEBOTH SCH (19:42)
[2017-08-31] MEDS: SEROQUEL 400 MG PO SCH (19:42)
[2017-08-31] MEDS: Acetaminophen/HYDROcodone 325-5 MG Tab PO PRN (19:43)
[2017-09-01] MEDS: Acetaminophen/HYDROcodone 325-5 MG Tab PO PRN (00:31)
[2017-09-01] MEDS: Acetaminophen 650 MG Tab.ER PO SCH ×2 (08:08→20:06)
[2017-09-01] MEDS: Non-Formulary Medication 1 Each (Metronidazole [Metronidazole 0.75% Cream] 1 APPLIC) TOP SCH (08:08)
[2017-09-01] MEDS: Citalopram 20 MG Tab PO SCH (08:08)
--- NOTE | 2017-09-01 17:44 | PCM.PN ---
- General Info Date of Service: 09/01/17 Subjective Update: Patient stable and does not appear in any discomfort. He was able to look at me when I called his name but response was garbled. Nursing state he is eating small amounts and does like potatoes. Functional Status: Reports: Tolerating Diet - Review of Systems General: Reports: Weakness, Other (unable to obtain history) - Patient Data Vitals - Most Recent: Last Vital Signs Temp 36.5 C 08/21/17 15:48 Pulse 73 08/21/17 15:48 Resp 17 08/21/17 15:48 BP 160/65 H 08/21/17 15:48 Pulse Ox 73 L 08/21/17 15:48 Weight - Most Recent: 60.237 kg Med Orders - Current: Current Medications Acetaminophen (Tylenol Arthritis Pain) 650 mg PO BID [facility] Last Admin: 09/01/17 08:08 Dose: 650 mg Hydrocodone Bitart/Acetaminophen ([place] 325-5 Mg) 1 tab PO Q4H PRN PRN Reason: Pain Last Admin: 09/01/17 00:31 Dose: 1 tab Bisacodyl (Dulcolax) 10 mg RECTAL DAILY PRN PRN Reason: Constipation Last Admin: 08/06/17 11:25 Dose: 10 mg Citalopram Hydrobromide (Celexa) 20 mg PO DAILY [facility] Last Admin: 09/01/17 08:08 Dose: 20 mg Erythromycin (Erythromycin 0.5% Ophth Oint) 3.5 gm EYEBOTH BEDTIME [facility] Last Admin: 08/31/17 19:42 Dose: 1 applic Fentanyl (Duragesic) 25 mcg TRDERM Q72H [facility] Last Admin: 08/29/17 19:21 Dose: 25 mcg Lorazepam (Ativan) 0.5 mg PO Q8HR PRN PRN Reason: Anxiety Last Admin: 08/31/17 08:30 Dose: 0.5 mg Lorazepam (Ativan) 1 mg SUBCUT Q4HR PRN PRN Reason: Anxiety Last Admin: 08/29/17 20:47 Dose: 1 mg Miscellaneous Information (Remove Patch) 1 ea TRDERM Q72H [facility] Last Admin: 08/29/17 19:21 Dose: Not Given Morphine Sulfate (Morphine) 2 mg SUBCUT Q4H PRN PRN Reason: Pain Non-Formulary Medication (Metronidazole [Metronidazole 0.75% Cream]) 1 applic TOP DAILY [facility] Last Admin: 09/01/17 08:08 Dose: 1 applic Seroquel 400mg (Tablets) 1 each PO BEDTIME [facility] Last Admin: 08/31/17 19:42 Dose: 1 each Quetiapine Fumarate (Seroquel) 50 mg PO BEDTIME [facility] Last Admin: 08/31/17 19:42 Dose: 50 mg Quetiapine Fumarate (Seroquel) 50 mg PO DAILY@0800,1200 [facility] Last Admin: 09/01/17 12:10 Dose: 50 mg Quetiapine Fumarate (Seroquel) 200 mg PO DAILY@0800,1200 [facility] Last Admin: 09/01/17 12:10 Dose: 200 mg Scopolamine (Transderm-Scop) 1.5 mg TOP Q72H PRN PRN Reason: Other Senna/Docusate Sodium (Senna Plus) 1 tab PO BID [facility] Last Admin: 09/01/17 08:08 Dose: 1 tab Discontinued Medications Acetaminophen (Tylenol) 650 mg PO BID [facility] Last Admin: 08/01/17 19:55 Dose: 650 mg Fentanyl (Duragesic) 25 mcg TRDERM Q72H [facility] Last Admin: 07/21/17 11:31 Dose: Not Given Fentanyl (Duragesic) 25 mcg TRDERM Q72H [facility] Last Admin: 07/28/17 17:32 Dose: Not Given Lorazepam (Ativan) Confirm Administered Dose 2 mg .ROUTE .STK-MED ONE Stop: 07/25/17 17:35 Last Admin: 07/25/17 17:35 Dose: 2 mg Lorazepam (Ativan) 1 mg IM ONETIME ONE Stop: 07/25/17 17:39 Last Admin: 07/25/17 18:36 Dose: Not Given Miscellaneous Information (Remove Patch) 1 ea TRDERM Q72H [facility] Last Admin: 07/28/17 17:33 Dose: Not Given Quetiapine Fumarate (Seroquel) 200 mg PO DAILY@0800,1200 [facility] Last Admin: 07/21/17 12:18 Dose: 250 mg Quetiapine Fumarate (Seroquel) Confirm Administered Dose 50 mg .ROUTE .STK-MED ONE Stop: 07/21/17 12:17 Last Admin: 07/21/17 15:07 Dose: Not Given Quetiapine Fumarate (Quetiapine Fumarate) Confirm Administered Dose 200 mg PO .STK-MED ONE Stop: 07/21/17 12:17 Last Admin: 07/21/17 15:07 Dose: Not Given Quetiapine Fumarate (Quetiapine Fumarate) Confirm Administered Dose 400 mg PO .STK-MED ONE Stop: 07/22/17 21:19 Last Admin: 07/22/17 21:37 Dose: Not Given Quetiapine Fumarate (Quetiapine Fumarate) Confirm Administered Dose 400 mg PO .STK-MED ONE Stop: 07/24/17 19:52 Last Admin: 07/25/17 12:34 Dose: Not Given Quetiapine Fumarate (Quetiapine Fumarate) Confirm Administered Dose 200 mg PO .STK-MED ONE Stop: 07/25/17 08:45 Last Admin: 07/25/17 11:36 Dose: Not Given Quetiapine Fumarate (Quetiapine Fumarate) Confirm Administered Dose 200 mg PO .STK-MED ONE Stop: 07/27/17 07:21 Last Admin: 07/27/17 16:55 Dose: Not Given Quetiapine Fumarate (Quetiapine Fumarate) Confirm Administered Dose 200 mg PO .STK-MED ONE Stop: 08/08/17 12:21 Last Admin: 08/08/17 13:36 Dose: Not Given - Exam General: Obtunded HEENT: Pupils Equal, Pupils Reactive, EOMI Neck: Supple Lungs: Clear to Auscultation, Normal Respiratory Effort Cardiovascular: Regular Rate, Regular Rhythm GI/Abdominal Exam: Normal Bowel Sounds, Soft, Non-Tender Back Exam: Normal Inspection Extremities: Other (thin 3/5 strength all extremities) Peripheral Pulses: 2+: Dorsalis Pedis (L), Dorsalis Pedis (R) Skin: Warm, Dry, Intact Neurological: No New Focal Deficit Psy/Mental Status: Alert - Problem List & Annotations (1) H/O subdural hemorrhage SNOMED Code(s): 603258677 Code(s): Z86.79 - PERSONAL HISTORY OF OTHER DISEASES OF THE CIRCULATORY SYSTEM Status: Chronic Current Visit: Yes (2) Comfort measures only status SNOMED Code(s): 62829257351516 Code(s): Z51.5 - ENCOUNTER FOR PALLIATIVE CARE Status: Chronic Current Visit: Yes (3) Neurogenic bladder SNOMED Code(s): 430618463 Code(s): N31.9 - NEUROMUSCULAR DYSFUNCTION OF BLADDER, UNSPECIFIED Status: Chronic Current Visit: Yes (4) Palliative care patient SNOMED Code(s): 216888919 Code(s): Z51.5 - ENCOUNTER FOR PALLIATIVE CARE Status: Chronic Priority: High Current Visit: Yes (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 Code(s): F03.91 - UNSPECIFIED DEMENTIA WITH BEHAVIORAL DISTURBANCE Status: Chronic Priority: High Current Visit: Yes Qualifiers: Dementia behavioral disturbance: with behavioral disturbance Qualified Code (s): F02.81 - Dementia in other diseases classified elsewhere with behavioral disturbance (6) Diabetes mellitus SNOMED Code(s): 11140805 Code(s): E11.9 - TYPE 2 DIABETES MELLITUS WITHOUT COMPLICATIONS Status: Chronic Priority: Medium Current Visit: Yes Qualifiers: Diabetes mellitus type: type 2 Diabetes mellitus complication status: with hyperglycemia Diabetes mellitus prison insulin use: without terminal computer operator use Qualified Code(s): E11.65 - Type 2 diabetes mellitus with hyperglycemia (7) Paranoid schizophrenia, chronic condition SNOMED Code(s): 91595396 Code(s): F20.0 - PARANOID SCHIZOPHRENIA Status: Chronic Priority: High Current Visit: Yes - Problem List Review Problem List Initiated/Reviewed/Updated: Yes - My Orders Last 24 Hours: My Active Orders 09/01/17 10:00 Insert Smith Catheter [Insert Urinary Catheter] [OM.PC] Q24H - Plan Plan:: Patient admitted to Respite care for continued comfort care management and support. Guardian aware and family aware of patient status and slow decline. Continued comfort cares and monitoring. No changes to plan of care. 08/12/17 Patient is stable. We will not change any current management or meds. Continue feeding as tolerated and as comfortable as patient desires. Continue comfort cares. 08/17/17 Patient continues with comfort cares. Continue regular feeding as tolerated. No changes to medications. 09/01/17 No changes in status. Continue feeding and comfort cares.
[2017-09-01] MEDS: SEROQUEL 400 MG PO SCH (20:05)
[2017-09-01] MEDS: Erythromycin Base 0.5% Ophth Oint 3.5 GM Tube EYEBOTH SCH (20:05)
[2017-09-01] MEDS: fentaNYL 25 MCG/HR Transdermal Patch TRDERM SCH (22:55)
[2017-09-02] MEDS: Acetaminophen/HYDROcodone 325-5 MG Tab PO PRN ×2 (01:17→21:20)
[2017-09-02] MEDS: Non-Formulary Medication 1 Each (Metronidazole [Metronidazole 0.75% Cream] 1 APPLIC) TOP SCH (08:21)
[2017-09-02] MEDS: Acetaminophen 650 MG Tab.ER PO SCH ×2 (08:21→21:23)
[2017-09-02] MEDS: Citalopram 20 MG Tab PO SCH (08:21)
[2017-09-02] MEDS: Erythromycin Base 0.5% Ophth Oint 3.5 GM Tube EYEBOTH SCH (21:20)
[2017-09-02] MEDS: LORazepam 0.5 MG Tab PO PRN (21:20)
[2017-09-02] MEDS: SEROQUEL 400 MG PO SCH (21:21)
[2017-09-03] MEDS: Citalopram 20 MG Tab PO SCH (09:53)
[2017-09-03] MEDS: Non-Formulary Medication 1 Each (Metronidazole [Metronidazole 0.75% Cream] 1 APPLIC) TOP SCH (09:54)
[2017-09-03] MEDS: Acetaminophen 650 MG Tab.ER PO SCH ×2 (09:58→20:29)
[2017-09-03] MEDS: LORazepam 0.5 MG Tab PO PRN (20:28)
[2017-09-03] MEDS: Erythromycin Base 0.5% Ophth Oint 3.5 GM Tube EYEBOTH SCH (20:28)
[2017-09-03] MEDS: SEROQUEL 400 MG PO SCH (20:29)
[2017-09-03] MEDS: Acetaminophen/HYDROcodone 325-5 MG Tab PO PRN (20:32)
[2017-09-04] MEDS: Acetaminophen/HYDROcodone 325-5 MG Tab PO PRN ×3 (07:27→19:47)
[2017-09-04] MEDS: Citalopram 20 MG Tab PO SCH (07:28)
[2017-09-04] MEDS: Acetaminophen 650 MG Tab.ER PO SCH ×2 (07:29→19:41)
[2017-09-04] MEDS: Non-Formulary Medication 1 Each (Metronidazole [Metronidazole 0.75% Cream] 1 APPLIC) TOP SCH (07:30)
[2017-09-04] MEDS: LORazepam 2 MG/ML SDV SUBCUT PRN (08:40)
--- NOTE | 2017-09-04 18:17 | PCM.SN ---
- Free Text/Narrative Note: Patient resting comfortably. He is arousable and alert when stimulated. He continues to tolerate his meals with no choking, but sometimes eats very little. Certain favorite foods he will ask for more. No changes to status. Continue comfort cares.
[2017-09-04] MEDS: fentaNYL 25 MCG/HR Transdermal Patch TRDERM SCH (19:38)
[2017-09-04] MEDS: SEROQUEL 400 MG PO SCH (19:42)
[2017-09-04] MEDS: Erythromycin Base 0.5% Ophth Oint 3.5 GM Tube EYEBOTH SCH (19:45)
[2017-09-04] MEDS: LORazepam 0.5 MG Tab PO PRN (19:46)
[2017-09-05] MEDS: Non-Formulary Medication 1 Each (Metronidazole [Metronidazole 0.75% Cream] 1 APPLIC) TOP SCH (07:26)
[2017-09-05] MEDS: Acetaminophen 650 MG Tab.ER PO SCH ×2 (07:27→20:00)
[2017-09-05] MEDS: Citalopram 20 MG Tab PO SCH (07:28)
[2017-09-05] MEDS: Acetaminophen/HYDROcodone 325-5 MG Tab PO PRN ×3 (07:30→20:00)
[2017-09-05] MEDS: SEROQUEL 400 MG PO SCH (20:00)
[2017-09-05] MEDS: Erythromycin Base 0.5% Ophth Oint 3.5 GM Tube EYEBOTH SCH (20:00)
[2017-09-05] MEDS: LORazepam 0.5 MG Tab PO PRN (20:00)
[2017-09-06] MEDS: Non-Formulary Medication 1 Each (Metronidazole [Metronidazole 0.75% Cream] 1 APPLIC) TOP SCH (07:16)
[2017-09-06] MEDS: Citalopram 20 MG Tab PO SCH (07:16)
[2017-09-06] MEDS: Acetaminophen 650 MG Tab.ER PO SCH ×2 (07:18→19:22)
[2017-09-06] MEDS: Acetaminophen/HYDROcodone 325-5 MG Tab PO PRN ×3 (13:00→19:22)
[2017-09-06] MEDS: LORazepam 0.5 MG Tab PO PRN (19:21)
[2017-09-06] MEDS: Erythromycin Base 0.5% Ophth Oint 3.5 GM Tube EYEBOTH SCH (19:21)
[2017-09-06] MEDS: SEROQUEL 400 MG PO SCH (19:22)
[2017-09-07] MEDS: Citalopram 20 MG Tab PO SCH (08:58)
[2017-09-07] MEDS: Non-Formulary Medication 1 Each (Metronidazole [Metronidazole 0.75% Cream] 1 APPLIC) TOP SCH (08:58)
[2017-09-07] MEDS: Acetaminophen 650 MG Tab.ER PO SCH ×2 (08:58→20:58)
[2017-09-07] MEDS: LORazepam 0.5 MG Tab PO PRN (17:55)
[2017-09-07] MEDS: fentaNYL 25 MCG/HR Transdermal Patch TRDERM SCH (20:54)
[2017-09-07] MEDS: SEROQUEL 400 MG PO SCH (20:55)
[2017-09-07] MEDS: Erythromycin Base 0.5% Ophth Oint 3.5 GM Tube EYEBOTH SCH (20:56)
[2017-09-07] MEDS: Acetaminophen/HYDROcodone 325-5 MG Tab PO PRN (21:04)
[2017-09-08] MEDS: Acetaminophen 650 MG Tab.ER PO SCH ×2 (08:00→19:46)
[2017-09-08] MEDS: Citalopram 20 MG Tab PO SCH (08:03)
[2017-09-08] MEDS: Non-Formulary Medication 1 Each (Metronidazole [Metronidazole 0.75% Cream] 1 APPLIC) TOP SCH (08:06)
--- NOTE | 2017-09-08 17:55 | PCM.PN ---
- General Info Date of Service: 09/08/17 Subjective Update: This is a 86yo M in respite care. He is eating well and denies any current complaints. He does not hear well and does not want to use his amplifier. He interacts well with [facility] nursing staff as reported by nursing. He does eat well on good days. He is comfortable and resting in bed. It is difficult to get any answers but he will acknowledge sometimes and say Thank you for feeding him. Functional Status: Reports: Tolerating Diet - Review of Systems General: Reports: Weakness HEENT: Reports: No Symptoms Pulmonary: Reports: No Symptoms Cardiovascular: Reports: No Symptoms Gastrointestinal: Reports: No Symptoms - Patient Data Vitals - Most Recent: Last Vital Signs Temp 37.1 C 09/06/17 07:38 Pulse 65 09/06/17 07:38 Resp 20 09/06/17 07:38 BP 149/78 H 09/06/17 07:38 Pulse Ox 97 09/06/17 07:38 Weight - Most Recent: 60.237 kg I&O - Last 24 Hours: Intake & Output 09/08/17 09/08/17 09/08/17 06:59 14:59 22:59 Output Total 200 Balance -200 Med Orders - Current: Current Medications Acetaminophen (Tylenol Arthritis Pain) 650 mg PO BID [facility] Last Admin: 09/08/17 08:00 Dose: 650 mg Hydrocodone Bitart/Acetaminophen ([place] 325-5 Mg) 1 tab PO Q4H PRN PRN Reason: Pain Last Admin: 09/07/17 21:04 Dose: 1 tab Bisacodyl (Dulcolax) 10 mg RECTAL DAILY PRN PRN Reason: Constipation Last Admin: 08/06/17 11:25 Dose: 10 mg Citalopram Hydrobromide (Celexa) 20 mg PO DAILY [facility] Last Admin: 09/08/17 08:03 Dose: 20 mg Erythromycin (Erythromycin 0.5% Ophth Oint) 3.5 gm EYEBOTH BEDTIME [facility] Last Admin: 09/07/17 20:56 Dose: 1 applic Fentanyl (Duragesic) 25 mcg TRDERM Q72H [facility] Last Admin: 09/07/17 20:54 Dose: 25 mcg Lorazepam (Ativan) 0.5 mg PO Q8HR PRN PRN Reason: Anxiety Last Admin: 09/07/17 17:55 Dose: 0.5 mg Lorazepam (Ativan) 1 mg SUBCUT Q4HR PRN PRN Reason: Anxiety Last Admin: 09/04/17 08:40 Dose: 1 mg Miscellaneous Information (Remove Patch) 1 ea TRDERM Q72H [facility] Last Admin: 09/07/17 20:57 Dose: 1 ea Morphine Sulfate (Morphine) 2 mg SUBCUT Q4H PRN PRN Reason: Pain Non-Formulary Medication (Metronidazole [Metronidazole 0.75% Cream]) 1 applic TOP DAILY [facility] Last Admin: 09/08/17 08:06 Dose: 1 applic Seroquel 400mg (Tablets) 1 each PO BEDTIME [facility] Last Admin: 09/07/17 20:55 Dose: 1 each Quetiapine Fumarate (Seroquel) 50 mg PO BEDTIME [facility] Last Admin: 09/07/17 20:59 Dose: 50 mg Quetiapine Fumarate (Seroquel) 50 mg PO DAILY@0800,1200 [facility] Last Admin: 09/08/17 11:43 Dose: 50 mg Quetiapine Fumarate (Seroquel) 200 mg PO DAILY@0800,1200 [facility] Last Admin: 09/08/17 11:43 Dose: 200 mg Scopolamine (Transderm-Scop) 1.5 mg TOP Q72H PRN PRN Reason: Other Senna/Docusate Sodium (Senna Plus) 1 tab PO BID [facility] Last Admin: 09/08/17 08:04 Dose: 1 tab Discontinued Medications Acetaminophen (Tylenol) 650 mg PO BID [facility] Last Admin: 08/01/17 19:55 Dose: 650 mg Fentanyl (Duragesic) 25 mcg TRDERM Q72H [facility] Last Admin: 07/21/17 11:31 Dose: Not Given Fentanyl (Duragesic) 25 mcg TRDERM Q72H [facility] Last Admin: 07/28/17 17:32 Dose: Not Given Lorazepam (Ativan) Confirm Administered Dose 2 mg .ROUTE .STK-MED ONE Stop: 07/25/17 17:35 Last Admin: 07/25/17 17:35 Dose: 2 mg Lorazepam (Ativan) 1 mg IM ONETIME ONE Stop: 07/25/17 17:39 Last Admin: 07/25/17 18:36 Dose: Not Given Miscellaneous Information (Remove Patch) 1 ea TRDERM Q72H [facility] Last Admin: 07/28/17 17:33 Dose: Not Given Quetiapine Fumarate (Seroquel) 200 mg PO DAILY@0800,1200 [facility] Last Admin: 07/21/17 12:18 Dose: 250 mg Quetiapine Fumarate (Seroquel) Confirm Administered Dose 50 mg .ROUTE .STK-MED ONE Stop: 07/21/17 12:17 Last Admin: 07/21/17 15:07 Dose: Not Given Quetiapine Fumarate (Quetiapine Fumarate) Confirm Administered Dose 200 mg PO .STK-MED ONE Stop: 07/21/17 12:17 Last Admin: 07/21/17 15:07 Dose: Not Given Quetiapine Fumarate (Quetiapine Fumarate) Confirm Administered Dose 400 mg PO .STK-MED ONE Stop: 07/22/17 21:19 Last Admin: 07/22/17 21:37 Dose: Not Given Quetiapine Fumarate (Quetiapine Fumarate) Confirm Administered Dose 400 mg PO .STK-MED ONE Stop: 07/24/17 19:52 Last Admin: 07/25/17 12:34 Dose: Not Given Quetiapine Fumarate (Quetiapine Fumarate) Confirm Administered Dose 200 mg PO .STK-MED ONE Stop: 07/25/17 08:45 Last Admin: 07/25/17 11:36 Dose: Not Given Quetiapine Fumarate (Quetiapine Fumarate) Confirm Administered Dose 200 mg PO .STK-MED ONE Stop: 07/27/17 07:21 Last Admin: 07/27/17 16:55 Dose: Not Given Quetiapine Fumarate (Quetiapine Fumarate) Confirm Administered Dose 200 mg PO .STK-MED ONE Stop: 08/08/17 12:21 Last Admin: 08/08/17 13:36 Dose: Not Given - Exam General: Alert, Cooperative HEENT: Pupils Equal, Pupils Reactive Neck: Supple Lungs: Clear to Auscultation, Normal Respiratory Effort Cardiovascular: Regular Rate, Regular Rhythm GI/Abdominal Exam: Normal Bowel Sounds - Problem List & Annotations (1) H/O subdural hemorrhage SNOMED Code(s): 033877375 Code(s): Z86.79 - PERSONAL HISTORY OF OTHER DISEASES OF THE CIRCULATORY SYSTEM Status: Chronic Current Visit: Yes (2) Comfort measures only status SNOMED Code(s): 42833980082643 Code(s): Z51.5 - ENCOUNTER FOR PALLIATIVE CARE Status: Chronic Current Visit: Yes (3) Neurogenic bladder SNOMED Code(s): 207450738 Code(s): N31.9 - NEUROMUSCULAR DYSFUNCTION OF BLADDER, UNSPECIFIED Status: Chronic Current Visit: Yes (4) Palliative care patient SNOMED Code(s): 239237823 Code(s): Z51.5 - ENCOUNTER FOR PALLIATIVE CARE Status: Chronic Priority: High Current Visit: Yes (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 Code(s): F03.91 - UNSPECIFIED DEMENTIA WITH BEHAVIORAL DISTURBANCE Status: Chronic Priority: High Current Visit: Yes Qualifiers: Dementia behavioral disturbance: with behavioral disturbance Qualified Code (s): F02.81 - Dementia in other diseases classified elsewhere with behavioral disturbance (6) Diabetes mellitus SNOMED Code(s): 11711235 Code(s): E11.9 - TYPE 2 DIABETES MELLITUS WITHOUT COMPLICATIONS Status: Chronic Priority: Medium Current Visit: Yes Qualifiers: Diabetes mellitus type: type 2 Diabetes mellitus complication status: with hyperglycemia Diabetes mellitus longterm insulin use: without longterm use Qualified Code(s): E11.65 - Type 2 diabetes mellitus with hyperglycemia (7) Paranoid schizophrenia, chronic condition SNOMED Code(s): 26693821 Code(s): F20.0 - PARANOID SCHIZOPHRENIA Status: Chronic Priority: High Current Visit: Yes - Problem List Review Problem List Initiated/Reviewed/Updated: Yes - My Orders Last 24 Hours: My Active Orders 09/08/17 10:00 Insert Smith Catheter [Insert Urinary Catheter] [OM.PC] Q24H - Plan Plan:: Patient admitted to Respite care for continued comfort care management and support. Guardian aware and family aware of patient status and slow decline. Continued comfort cares and monitoring. No changes to plan of care. 08/12/17 Patient is stable. We will not change any current management or meds. Continue feeding as tolerated and as comfortable as patient desires. Continue comfort cares. 08/17/17 Patient continues with comfort cares. Continue regular feeding as tolerated. No changes to medications. 09/01/17 No changes in status. Continue feeding and comfort cares. 09/08/17 Continue current cares, feeding and monitoring. Patient stable with no new findings.
[2017-09-08] MEDS: SEROQUEL 400 MG PO SCH (19:46)
[2017-09-08] MEDS: Erythromycin Base 0.5% Ophth Oint 3.5 GM Tube EYEBOTH SCH (19:46)
[2017-09-09] MEDS: Citalopram 20 MG Tab PO SCH (07:11)
[2017-09-09] MEDS: Non-Formulary Medication 1 Each (Metronidazole [Metronidazole 0.75% Cream] 1 APPLIC) TOP SCH (07:11)
[2017-09-09] MEDS: Acetaminophen 650 MG Tab.ER PO SCH ×2 (07:12→20:35)
[2017-09-09] MEDS: Acetaminophen/HYDROcodone 325-5 MG Tab PO PRN ×4 (07:12→22:46)
[2017-09-09] MEDS: SEROQUEL 400 MG PO SCH (20:51)
[2017-09-09] MEDS: LORazepam 0.5 MG Tab PO PRN (20:51)
[2017-09-09] MEDS: Erythromycin Base 0.5% Ophth Oint 3.5 GM Tube EYEBOTH SCH (20:51)
[2017-09-10] MEDS: Citalopram 20 MG Tab PO SCH (08:08)
[2017-09-10] MEDS: Acetaminophen 650 MG Tab.ER PO SCH ×2 (08:09→19:20)
[2017-09-10] MEDS: Non-Formulary Medication 1 Each (Metronidazole [Metronidazole 0.75% Cream] 1 APPLIC) TOP SCH (08:09)
[2017-09-10] MEDS ORDERED: fentaNYL 25 MCG/HR Transdermal Patch TRDERM SCH (09:30)
[2017-09-10] MEDS: Erythromycin Base 0.5% Ophth Oint 3.5 GM Tube EYEBOTH SCH (19:18)
[2017-09-10] MEDS: SEROQUEL 400 MG PO SCH (19:18)
[2017-09-10] MEDS: Acetaminophen/HYDROcodone 325-5 MG Tab PO PRN (19:21)
[2017-09-10] MEDS: fentaNYL 25 MCG/HR Transdermal Patch TRDERM SCH (19:21)
[2017-09-10] MEDS: fentaNYL 12 MCG/HR Transdermal Patch TRDERM SCH (19:22)
[2017-09-11] MEDS: Citalopram 20 MG Tab PO SCH (08:00)
[2017-09-11] MEDS: Non-Formulary Medication 1 Each (Metronidazole [Metronidazole 0.75% Cream] 1 APPLIC) TOP SCH (08:01)
[2017-09-11] MEDS: Acetaminophen 650 MG Tab.ER PO SCH ×2 (08:11→19:18)
[2017-09-11] MEDS: LORazepam 0.5 MG Tab PO PRN ×2 (15:04→19:18)
[2017-09-11] MEDS: Acetaminophen/HYDROcodone 325-5 MG Tab PO PRN (19:18)
[2017-09-11] MEDS: SEROQUEL 400 MG PO SCH (19:18)
[2017-09-11] MEDS: Erythromycin Base 0.5% Ophth Oint 3.5 GM Tube EYEBOTH SCH (19:18)
[2017-09-12] MEDS: Acetaminophen 650 MG Tab.ER PO SCH ×2 (10:00→20:35)
[2017-09-12] MEDS: Citalopram 20 MG Tab PO SCH (10:00)
[2017-09-12] MEDS: Non-Formulary Medication 1 Each (Metronidazole [Metronidazole 0.75% Cream] 1 APPLIC) TOP SCH (10:20)
[2017-09-12] MEDS: SEROQUEL 400 MG PO SCH (20:33)
[2017-09-12] MEDS: Acetaminophen/HYDROcodone 325-5 MG Tab PO PRN (20:33)
[2017-09-12] MEDS: LORazepam 0.5 MG Tab PO PRN (20:34)
[2017-09-12] MEDS: Erythromycin Base 0.5% Ophth Oint 3.5 GM Tube EYEBOTH SCH (20:35)
[2017-09-13] MEDS: Acetaminophen 650 MG Tab.ER PO SCH ×2 (08:40→20:23)
[2017-09-13] MEDS: Citalopram 20 MG Tab PO SCH (08:40)
[2017-09-13] MEDS: Non-Formulary Medication 1 Each (Metronidazole [Metronidazole 0.75% Cream] 1 APPLIC) TOP SCH (09:00)
[2017-09-13] MEDS: Acetaminophen/HYDROcodone 325-5 MG Tab PO PRN (13:40)
[2017-09-13] MEDS: SEROQUEL 400 MG PO SCH (20:22)
[2017-09-13] MEDS: Erythromycin Base 0.5% Ophth Oint 3.5 GM Tube EYEBOTH SCH (23:22)
[2017-09-13] MEDS: fentaNYL 25 MCG/HR Transdermal Patch TRDERM SCH (23:26)
[2017-09-13] MEDS: fentaNYL 12 MCG/HR Transdermal Patch TRDERM SCH (23:27)
[2017-09-14] MEDS: Citalopram 20 MG Tab PO SCH (08:05)
[2017-09-14] MEDS: Acetaminophen 650 MG Tab.ER PO SCH ×2 (08:05→20:30)
[2017-09-14] MEDS: Non-Formulary Medication 1 Each (Metronidazole [Metronidazole 0.75% Cream] 1 APPLIC) TOP SCH (08:05)
--- NOTE | 2017-09-14 19:20 | PCM.PN ---
- General Info Date of Service: 09/14/17 Subjective Update: Patient continues to be stable and eat well. He does continue to rest in bed and does not get out of bed. He appears thin but well hydrated. Patient does not answer questions but does respond and visually track. He has a long history of hearing difficulty and with his Schizophrenia has difficulty communicating. He continues to eat well with nursing staff and rest in bed. Functional Status: Reports: Pain Controlled, Tolerating Diet - Review of Systems General: Reports: Weakness - Patient Data Vitals - Most Recent: Last Vital Signs Temp 37.1 C 09/09/17 07:43 Pulse 65 09/09/17 07:43 Resp 20 09/09/17 07:43 BP 115/71 09/09/17 07:43 Pulse Ox 95 09/09/17 07:43 Weight - Most Recent: 60.237 kg Med Orders - Current: Current Medications Acetaminophen (Tylenol Arthritis Pain) 650 mg PO BID [facility] Last Admin: 09/14/17 08:05 Dose: 650 mg Hydrocodone Bitart/Acetaminophen ([place] 325-5 Mg) 1 tab PO Q4H PRN PRN Reason: Pain Last Admin: 09/13/17 13:40 Dose: 1 tab Bisacodyl (Dulcolax) 10 mg RECTAL DAILY PRN PRN Reason: Constipation Last Admin: 08/06/17 11:25 Dose: 10 mg Citalopram Hydrobromide (Celexa) 20 mg PO DAILY [facility] Last Admin: 09/14/17 08:05 Dose: 20 mg Docusate Sodium (Colace) 100 mg PO BID [facility] Erythromycin (Erythromycin 0.5% Ophth Oint) 3.5 gm EYEBOTH BEDTIME [facility] Last Admin: 09/13/17 23:22 Dose: Not Given Fentanyl (Duragesic) 25 mcg TRDERM Q72H [facility] Last Admin: 09/13/17 23:26 Dose: 25 mcg Fentanyl (Duragesic) 12 mcg TRDERM Q72H [facility] Last Admin: 09/13/17 23:27 Dose: 12 mcg Lorazepam (Ativan) 0.5 mg PO Q8HR PRN PRN Reason: Anxiety Last Admin: 09/12/17 20:34 Dose: 0.5 mg Lorazepam (Ativan) 1 mg SUBCUT Q4HR PRN PRN Reason: Anxiety Last Admin: 09/04/17 08:40 Dose: 1 mg Miscellaneous Information (Remove Patch) 1 ea TRDERM Q72H [facility] Last Admin: 09/13/17 23:24 Dose: 1 ea Morphine Sulfate (Morphine) 2 mg SUBCUT Q4H PRN PRN Reason: Pain Non-Formulary Medication (Metronidazole [Metronidazole 0.75% Cream]) 1 applic TOP DAILY [facility] Last Admin: 09/14/17 08:05 Dose: 1 applic Seroquel 400mg (Tablets) 1 each PO BEDTIME [facility] Last Admin: 09/13/17 20:22 Dose: 1 each Quetiapine Fumarate (Seroquel) 50 mg PO BEDTIME [facility] Last Admin: 09/13/17 20:23 Dose: 50 mg Quetiapine Fumarate (Seroquel) 50 mg PO DAILY@0800,1200 [facility] Last Admin: 09/14/17 12:28 Dose: 50 mg Quetiapine Fumarate (Seroquel) 200 mg PO DAILY@0800,1200 [facility] Last Admin: 09/14/17 12:28 Dose: 200 mg Scopolamine (Transderm-Scop) 1.5 mg TOP Q72H PRN PRN Reason: Other Senna (Senna) 8.6 mg PO BID [facility] Discontinued Medications Acetaminophen (Tylenol) 650 mg PO BID [facility] Last Admin: 08/01/17 19:55 Dose: 650 mg Fentanyl (Duragesic) 25 mcg TRDERM Q72H [facility] Last Admin: 07/21/17 11:31 Dose: Not Given Fentanyl (Duragesic) 25 mcg TRDERM Q72H [facility] Last Admin: 07/28/17 17:32 Dose: Not Given Fentanyl (Duragesic) 25 mcg TRDERM Q72H [facility] Last Admin: 09/07/17 20:54 Dose: 25 mcg Lorazepam (Ativan) Confirm Administered Dose 2 mg .ROUTE .STK-MED ONE Stop: 07/25/17 17:35 Last Admin: 07/25/17 17:35 Dose: 2 mg Lorazepam (Ativan) 1 mg IM ONETIME ONE Stop: 07/25/17 17:39 Last Admin: 07/25/17 18:36 Dose: Not Given Miscellaneous Information (Remove Patch) 1 ea TRDERM Q72H [facility] Last Admin: 07/28/17 17:33 Dose: Not Given Miscellaneous Information (Remove Patch) 1 ea TRDERM Q72H [facility] Last Admin: 09/07/17 20:57 Dose: 1 ea Quetiapine Fumarate (Seroquel) 200 mg PO DAILY@0800,1200 [facility] Last Admin: 07/21/17 12:18 Dose: 250 mg Quetiapine Fumarate (Seroquel) Confirm Administered Dose 50 mg .ROUTE .STK-MED ONE Stop: 07/21/17 12:17 Last Admin: 07/21/17 15:07 Dose: Not Given Quetiapine Fumarate (Quetiapine Fumarate) Confirm Administered Dose 200 mg PO .STK-MED ONE Stop: 07/21/17 12:17 Last Admin: 07/21/17 15:07 Dose: Not Given Quetiapine Fumarate (Quetiapine Fumarate) Confirm Administered Dose 400 mg PO .STK-MED ONE Stop: 07/22/17 21:19 Last Admin: 07/22/17 21:37 Dose: Not Given Quetiapine Fumarate (Quetiapine Fumarate) Confirm Administered Dose 400 mg PO .STK-MED ONE Stop: 07/24/17 19:52 Last Admin: 07/25/17 12:34 Dose: Not Given Quetiapine Fumarate (Quetiapine Fumarate) Confirm Administered Dose 200 mg PO .STK-MED ONE Stop: 07/25/17 08:45 Last Admin: 07/25/17 11:36 Dose: Not Given Quetiapine Fumarate (Quetiapine Fumarate) Confirm Administered Dose 200 mg PO .STK-MED ONE Stop: 07/27/17 07:21 Last Admin: 07/27/17 16:55 Dose: Not Given Quetiapine Fumarate (Quetiapine Fumarate) Confirm Administered Dose 200 mg PO .STK-MED ONE Stop: 08/08/17 12:21 Last Admin: 08/08/17 13:36 Dose: Not Given Senna/Docusate Sodium (Senna Plus) 1 tab PO BID [facility] Last Admin: 09/14/17 08:05 Dose: 1 tab - Exam General: Alert HEENT: Pupils Equal, Pupils Reactive, EOMI Neck: Supple Lungs: Clear to Auscultation, Normal Respiratory Effort Cardiovascular: Regular Rate, Regular Rhythm GI/Abdominal Exam: Normal Bowel Sounds Extremities: Other (thinning muscles) Peripheral Pulses: 2+: Dorsalis Pedis (L), Dorsalis Pedis (R) Skin: Warm, Dry, Intact - Problem List & Annotations (1) H/O subdural hemorrhage SNOMED Code(s): 425579508 Code(s): Z86.79 - PERSONAL HISTORY OF OTHER DISEASES OF THE CIRCULATORY SYSTEM Status: Chronic Current Visit: Yes (2) Comfort measures only status SNOMED Code(s): 95784108588856 Code(s): Z51.5 - ENCOUNTER FOR PALLIATIVE CARE Status: Chronic Current Visit: Yes (3) Neurogenic bladder SNOMED Code(s): 835590163 Code(s): N31.9 - NEUROMUSCULAR DYSFUNCTION OF BLADDER, UNSPECIFIED Status: Chronic Current Visit: Yes (4) Palliative care patient SNOMED Code(s): 457103693 Code(s): Z51.5 - ENCOUNTER FOR PALLIATIVE CARE Status: Chronic Priority: High Current Visit: Yes (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 Code(s): F03.91 - UNSPECIFIED DEMENTIA WITH BEHAVIORAL DISTURBANCE Status: Chronic Priority: High Current Visit: Yes Qualifiers: Dementia behavioral disturbance: with behavioral disturbance Qualified Code (s): F02.81 - Dementia in other diseases classified elsewhere with behavioral disturbance (6) Diabetes mellitus SNOMED Code(s): 61823523 Code(s): E11.9 - TYPE 2 DIABETES MELLITUS WITHOUT COMPLICATIONS Status: Chronic Priority: Medium Current Visit: Yes Qualifiers: Diabetes mellitus type: type 2 Diabetes mellitus complication status: with hyperglycemia Diabetes mellitus long term care social worker insulin use: without longterm use Qualified Code(s): E11.65 - Type 2 diabetes mellitus with hyperglycemia (7) Paranoid schizophrenia, chronic condition SNOMED Code(s): 39600661 Code(s): F20.0 - PARANOID SCHIZOPHRENIA Status: Chronic Priority: High Current Visit: Yes - Problem List Review Problem List Initiated/Reviewed/Updated: Yes - My Orders Last 24 Hours: My Active Orders 09/14/17 10:00 Insert Smith Catheter [Insert Urinary Catheter] [OM.PC] Q24H 09/14/17 20:00 Docusate Sodium [Colace] 100 mg PO BID Sennosides [Senna] 8.6 mg PO BID - Plan Plan:: Patient admitted to Respite care for continued comfort care management and support. Guardian aware and family aware of patient status and slow decline. Continued comfort cares and monitoring. No changes to plan of care. 08/12/17 Patient is stable. We will not change any current management or meds. Continue feeding as tolerated and as comfortable as patient desires. Continue comfort cares. 08/17/17 Patient continues with comfort cares. Continue regular feeding as tolerated. No changes to medications. 09/01/17 No changes in status. Continue feeding and comfort cares. 09/14/17 Patient is stable. No changes to status. We will continue current cares, monitoring, skin cares, feeding and comfort cares.
[2017-09-14] MEDS: Docusate Sodium 100 MG Cap PO SCH (20:29)
[2017-09-14] MEDS: Erythromycin Base 0.5% Ophth Oint 3.5 GM Tube EYEBOTH SCH (20:30)
[2017-09-14] MEDS: SEROQUEL 400 MG PO SCH (20:30)
[2017-09-14] MEDS: Sennosides 8.6 MG Tab PO SCH (20:30)
[2017-09-14] MEDS: Acetaminophen/HYDROcodone 325-5 MG Tab PO PRN (22:00)
[2017-09-14] MEDS: LORazepam 0.5 MG Tab PO PRN (22:00)
[2017-09-15] MEDS: Acetaminophen 650 MG Tab.ER PO SCH ×2 (07:20→19:41)
[2017-09-15] MEDS: Citalopram 20 MG Tab PO SCH (07:20)
[2017-09-15] MEDS: Non-Formulary Medication 1 Each (Metronidazole [Metronidazole 0.75% Cream] 1 APPLIC) TOP SCH (07:20)
[2017-09-15] MEDS: Acetaminophen/HYDROcodone 325-5 MG Tab PO PRN ×4 (07:20→19:40)
[2017-09-15] MEDS: Sennosides 8.6 MG Tab PO SCH ×2 (07:20→19:40)
[2017-09-15] MEDS: Docusate Sodium 100 MG Cap PO SCH ×2 (07:21→19:40)
[2017-09-15] MEDS: Erythromycin Base 0.5% Ophth Oint 3.5 GM Tube EYEBOTH SCH (19:40)
[2017-09-15] MEDS: SEROQUEL 400 MG PO SCH (19:40)
[2017-09-15] MEDS: LORazepam 0.5 MG Tab PO PRN (19:42)
[2017-09-16] MEDS: Sennosides 8.6 MG Tab PO SCH ×2 (07:31→20:02)
[2017-09-16] MEDS: Citalopram 20 MG Tab PO SCH (07:31)
[2017-09-16] MEDS: Non-Formulary Medication 1 Each (Metronidazole [Metronidazole 0.75% Cream] 1 APPLIC) TOP SCH (07:31)
[2017-09-16] MEDS: Docusate Sodium 100 MG Cap PO SCH ×2 (07:31→20:01)
[2017-09-16] MEDS: Acetaminophen 650 MG Tab.ER PO SCH ×2 (07:31→20:02)
[2017-09-16] MEDS: Acetaminophen/HYDROcodone 325-5 MG Tab PO PRN ×4 (07:32→20:09)
[2017-09-16 07:39] VITALS: BP 153/55
[2017-09-16] MEDS: SEROQUEL 400 MG PO SCH (20:02)
[2017-09-16] MEDS: Erythromycin Base 0.5% Ophth Oint 3.5 GM Tube EYEBOTH SCH (20:02)
[2017-09-16] MEDS: fentaNYL 25 MCG/HR Transdermal Patch TRDERM SCH (20:08)
[2017-09-16] MEDS: fentaNYL 12 MCG/HR Transdermal Patch TRDERM SCH (20:09)
[2017-09-16] MEDS: LORazepam 0.5 MG Tab PO PRN (20:09)
[2017-09-17] MEDS: Acetaminophen/HYDROcodone 325-5 MG Tab PO PRN ×2 (08:12→12:13)
[2017-09-17] MEDS: Citalopram 20 MG Tab PO SCH (08:13)
[2017-09-17] MEDS: Acetaminophen 650 MG Tab.ER PO SCH ×2 (08:14→19:10)
[2017-09-17] MEDS: Sennosides 8.6 MG Tab PO SCH ×2 (08:14→19:10)
[2017-09-17] MEDS: Docusate Sodium 100 MG Cap PO SCH ×2 (08:15→19:10)
[2017-09-17] MEDS: Non-Formulary Medication 1 Each (Metronidazole [Metronidazole 0.75% Cream] 1 APPLIC) TOP SCH (08:17)
[2017-09-17] MEDS: Erythromycin Base 0.5% Ophth Oint 3.5 GM Tube EYEBOTH SCH (19:10)
[2017-09-17] MEDS: SEROQUEL 400 MG PO SCH (19:10)
[2017-09-18] MEDS: Acetaminophen/HYDROcodone 325-5 MG Tab PO PRN ×3 (05:47→19:47)
[2017-09-18] MEDS: Citalopram 20 MG Tab PO SCH (08:05)
[2017-09-18] MEDS: Non-Formulary Medication 1 Each (Metronidazole [Metronidazole 0.75% Cream] 1 APPLIC) TOP SCH (08:06)
[2017-09-18] MEDS: Sennosides 8.6 MG Tab PO SCH ×2 (08:07→19:44)
[2017-09-18] MEDS: Docusate Sodium 100 MG Cap PO SCH ×2 (08:07→19:46)
[2017-09-18] MEDS: Acetaminophen 650 MG Tab.ER PO SCH ×2 (08:09→19:44)
[2017-09-18] MEDS: LORazepam 0.5 MG Tab PO PRN (19:43)
[2017-09-18] MEDS: SEROQUEL 400 MG PO SCH (19:44)
[2017-09-18] MEDS: Erythromycin Base 0.5% Ophth Oint 3.5 GM Tube EYEBOTH SCH (19:46)
[2017-09-19] MEDS: Citalopram 20 MG Tab PO SCH (07:41)
[2017-09-19] MEDS: Docusate Sodium 100 MG Cap PO SCH ×2 (07:42→19:07)
[2017-09-19] MEDS: Non-Formulary Medication 1 Each (Metronidazole [Metronidazole 0.75% Cream] 1 APPLIC) TOP SCH (07:43)
[2017-09-19] MEDS: Acetaminophen 650 MG Tab.ER PO SCH ×2 (07:44→19:07)
[2017-09-19] MEDS: Sennosides 8.6 MG Tab PO SCH ×2 (07:44→19:07)
[2017-09-19] MEDS: Erythromycin Base 0.5% Ophth Oint 3.5 GM Tube EYEBOTH SCH (19:07)
[2017-09-19] MEDS: SEROQUEL 400 MG PO SCH (19:08)
[2017-09-19] MEDS: fentaNYL 25 MCG/HR Transdermal Patch TRDERM SCH (19:09)
[2017-09-19] MEDS: fentaNYL 12 MCG/HR Transdermal Patch TRDERM SCH (19:10)
[2017-09-19] MEDS: LORazepam 0.5 MG Tab PO PRN (19:18)
[2017-09-20] MEDS: Docusate Sodium 100 MG Cap PO SCH ×2 (07:28→19:54)
[2017-09-20] MEDS: Non-Formulary Medication 1 Each (Metronidazole [Metronidazole 0.75% Cream] 1 APPLIC) TOP SCH (07:28)
[2017-09-20] MEDS: Acetaminophen 650 MG Tab.ER PO SCH ×2 (07:28→20:04)
[2017-09-20] MEDS: Citalopram 20 MG Tab PO SCH (07:28)
[2017-09-20] MEDS: Sennosides 8.6 MG Tab PO SCH ×2 (07:28→20:04)
[2017-09-20] MEDS: LORazepam 0.5 MG Tab PO PRN (19:52)
[2017-09-20] MEDS: SEROQUEL 400 MG PO SCH (19:52)
[2017-09-20] MEDS: Erythromycin Base 0.5% Ophth Oint 3.5 GM Tube EYEBOTH SCH (19:59)
[2017-09-20] MEDS: Acetaminophen/HYDROcodone 325-5 MG Tab PO PRN (20:08)
[2017-09-21] MEDS: Docusate Sodium 100 MG Cap PO SCH (09:15)
[2017-09-21] MEDS: Sennosides 8.6 MG Tab PO SCH ×2 (09:15→19:59)
[2017-09-21] MEDS: Citalopram 20 MG Tab PO SCH (09:15)
[2017-09-21] MEDS: Acetaminophen 650 MG Tab.ER PO SCH ×2 (09:15→19:54)
[2017-09-21] MEDS: Non-Formulary Medication 1 Each (Metronidazole [Metronidazole 0.75% Cream] 1 APPLIC) TOP SCH (09:40)
[2017-09-21] MEDS: Erythromycin Base 0.5% Ophth Oint 3.5 GM Tube EYEBOTH SCH (19:53)
[2017-09-21] MEDS: SEROQUEL 400 MG PO SCH (19:54)
[2017-09-21] MEDS: Acetaminophen/HYDROcodone 325-5 MG Tab PO PRN (19:59)
[2017-09-22] MEDS: Docusate Sodium 100 MG Cap PO SCH ×3 (06:20→20:56)
[2017-09-22] MEDS: Sennosides 8.6 MG Tab PO SCH ×2 (08:14→21:01)
[2017-09-22] MEDS: Citalopram 20 MG Tab PO SCH (08:14)
[2017-09-22] MEDS: Acetaminophen 650 MG Tab.ER PO SCH ×2 (08:14→21:01)
[2017-09-22] MEDS: Non-Formulary Medication 1 Each (Metronidazole [Metronidazole 0.75% Cream] 1 APPLIC) TOP SCH (08:15)
[2017-09-22] MEDS: fentaNYL 25 MCG/HR Transdermal Patch TRDERM SCH (20:56)
[2017-09-22] MEDS: fentaNYL 12 MCG/HR Transdermal Patch TRDERM SCH (20:58)
[2017-09-22] MEDS: Erythromycin Base 0.5% Ophth Oint 3.5 GM Tube EYEBOTH SCH (20:58)
[2017-09-22] MEDS: SEROQUEL 400 MG PO SCH (20:59)
[2017-09-23] MEDS: Acetaminophen/HYDROcodone 325-5 MG Tab PO PRN (06:28)
--- NOTE | 2017-09-23 08:53 | PCM.PN ---
- General Info Date of Service: 09/23/17 Subjective Update: Patient continues to be stable. He is verbal but communication is mainly what the patient states he wants. He does not answer questions. He eats well occasionally when he chooses to. Functional Status: Reports: Tolerating Diet, Other (unable to obtain ROS - patient does not communicate very well and is deaf and will not wear his amplifier or hearing devices) - Review of Systems General: Reports: Weakness - Patient Data Vitals - Most Recent: Last Vital Signs Temp 37.1 C 09/16/17 07:38 Pulse 77 09/16/17 07:38 Resp 20 09/16/17 07:38 BP 153/55 H 09/16/17 07:38 Pulse Ox 97 09/16/17 07:38 Weight - Most Recent: 60.237 kg Med Orders - Current: Current Medications Acetaminophen (Tylenol Arthritis Pain) 650 mg PO BID [facility] Last Admin: 09/22/17 21:01 Dose: 650 mg Hydrocodone Bitart/Acetaminophen ([place] 325-5 Mg) 1 tab PO Q4H PRN PRN Reason: Pain Last Admin: 09/23/17 06:28 Dose: 1 tab Bisacodyl (Dulcolax) 10 mg RECTAL DAILY PRN PRN Reason: Constipation Last Admin: 08/06/17 11:25 Dose: 10 mg Citalopram Hydrobromide (Celexa) 20 mg PO DAILY [facility] Last Admin: 09/22/17 08:14 Dose: 20 mg Docusate Sodium (Colace) 100 mg PO BID [facility] Last Admin: 09/22/17 20:56 Dose: 100 mg Erythromycin (Erythromycin 0.5% Ophth Oint) 3.5 gm EYEBOTH BEDTIME [facility] Last Admin: 09/22/17 20:58 Dose: Not Given Fentanyl (Duragesic) 25 mcg TRDERM Q72H [facility] Last Admin: 09/22/17 20:56 Dose: 25 mcg Fentanyl (Duragesic) 12 mcg TRDERM Q72H [facility] Last Admin: 09/22/17 20:58 Dose: 12 mcg Lorazepam (Ativan) 0.5 mg PO Q8HR PRN PRN Reason: Anxiety Last Admin: 09/20/17 19:52 Dose: 0.5 mg Lorazepam (Ativan) 1 mg SUBCUT Q4HR PRN PRN Reason: Anxiety Last Admin: 09/04/17 08:40 Dose: 1 mg Miscellaneous Information (Remove Patch) 1 ea TRDERM Q72H [facility] Last Admin: 09/22/17 20:59 Dose: 1 ea Morphine Sulfate (Morphine) 2 mg SUBCUT Q4H PRN PRN Reason: Pain Non-Formulary Medication (Metronidazole [Metronidazole 0.75% Cream]) 1 applic TOP DAILY [facility] Last Admin: 09/22/17 08:15 Dose: 1 applic Seroquel 400mg (Tablets) 1 each PO BEDTIME [facility] Last Admin: 09/22/17 20:59 Dose: 1 each Quetiapine Fumarate (Seroquel) 50 mg PO BEDTIME [facility] Last Admin: 09/22/17 21:01 Dose: 50 mg Quetiapine Fumarate (Seroquel) 50 mg PO DAILY@0800,1200 [facility] Last Admin: 09/22/17 12:23 Dose: 50 mg Quetiapine Fumarate (Seroquel) 200 mg PO DAILY@0800,1200 [facility] Last Admin: 09/22/17 12:23 Dose: 200 mg Scopolamine (Transderm-Scop) 1.5 mg TOP Q72H PRN PRN Reason: Other Senna (Senna) 8.6 mg PO BID [facility] Last Admin: 09/22/17 21:01 Dose: 8.6 mg Discontinued Medications Acetaminophen (Tylenol) 650 mg PO BID [facility] Last Admin: 08/01/17 19:55 Dose: 650 mg Fentanyl (Duragesic) 25 mcg TRDERM Q72H [facility] Last Admin: 07/21/17 11:31 Dose: Not Given Fentanyl (Duragesic) 25 mcg TRDERM Q72H [facility] Last Admin: 07/28/17 17:32 Dose: Not Given Fentanyl (Duragesic) 25 mcg TRDERM Q72H [facility] Last Admin: 09/07/17 20:54 Dose: 25 mcg Lorazepam (Ativan) Confirm Administered Dose 2 mg .ROUTE .STK-MED ONE Stop: 07/25/17 17:35 Last Admin: 07/25/17 17:35 Dose: 2 mg Lorazepam (Ativan) 1 mg IM ONETIME ONE Stop: 07/25/17 17:39 Last Admin: 07/25/17 18:36 Dose: Not Given Miscellaneous Information (Remove Patch) 1 ea TRDERM Q72H [facility] Last Admin: 07/28/17 17:33 Dose: Not Given Miscellaneous Information (Remove Patch) 1 ea TRDERM Q72H [facility] Last Admin: 09/07/17 20:57 Dose: 1 ea Quetiapine Fumarate (Seroquel) 200 mg PO DAILY@0800,1200 [facility] Last Admin: 07/21/17 12:18 Dose: 250 mg Quetiapine Fumarate (Seroquel) Confirm Administered Dose 50 mg .ROUTE .STK-MED ONE Stop: 07/21/17 12:17 Last Admin: 07/21/17 15:07 Dose: Not Given Quetiapine Fumarate (Quetiapine Fumarate) Confirm Administered Dose 200 mg PO .STK-MED ONE Stop: 07/21/17 12:17 Last Admin: 07/21/17 15:07 Dose: Not Given Quetiapine Fumarate (Quetiapine Fumarate) Confirm Administered Dose 400 mg PO .STK-MED ONE Stop: 07/22/17 21:19 Last Admin: 07/22/17 21:37 Dose: Not Given Quetiapine Fumarate (Quetiapine Fumarate) Confirm Administered Dose 400 mg PO .STK-MED ONE Stop: 07/24/17 19:52 Last Admin: 07/25/17 12:34 Dose: Not Given Quetiapine Fumarate (Quetiapine Fumarate) Confirm Administered Dose 200 mg PO .STK-MED ONE Stop: 07/25/17 08:45 Last Admin: 07/25/17 11:36 Dose: Not Given Quetiapine Fumarate (Quetiapine Fumarate) Confirm Administered Dose 200 mg PO .STK-MED ONE Stop: 07/27/17 07:21 Last Admin: 07/27/17 16:55 Dose: Not Given Quetiapine Fumarate (Quetiapine Fumarate) Confirm Administered Dose 200 mg PO .STK-MED ONE Stop: 08/08/17 12:21 Last Admin: 08/08/17 13:36 Dose: Not Given Senna/Docusate Sodium (Senna Plus) 1 tab PO BID [facility] Last Admin: 09/14/17 08:05 Dose: 1 tab - Exam General: Alert HEENT: Pupils Equal, Pupils Reactive Neck: Supple Lungs: Clear to Auscultation, Normal Respiratory Effort Cardiovascular: Regular Rate, Regular Rhythm GI/Abdominal Exam: Normal Bowel Sounds Extremities: Normal Inspection - Problem List & Annotations (1) H/O subdural hemorrhage SNOMED Code(s): 918360391 Code(s): Z86.79 - PERSONAL HISTORY OF OTHER DISEASES OF THE CIRCULATORY SYSTEM Status: Chronic Current Visit: Yes (2) Comfort measures only status SNOMED Code(s): 30470641228443 Code(s): Z51.5 - ENCOUNTER FOR PALLIATIVE CARE Status: Chronic Current Visit: Yes (3) Neurogenic bladder SNOMED Code(s): 429354538 Code(s): N31.9 - NEUROMUSCULAR DYSFUNCTION OF BLADDER, UNSPECIFIED Status: Chronic Current Visit: Yes (4) Palliative care patient SNOMED Code(s): 877480905 Code(s): Z51.5 - ENCOUNTER FOR PALLIATIVE CARE Status: Chronic Priority: High Current Visit: Yes (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 Code(s): F03.91 - UNSPECIFIED DEMENTIA WITH BEHAVIORAL DISTURBANCE Status: Chronic Priority: High Current Visit: Yes Qualifiers: Dementia behavioral disturbance: with behavioral disturbance Qualified Code (s): F02.81 - Dementia in other diseases classified elsewhere with behavioral disturbance (6) Diabetes mellitus SNOMED Code(s): 87884247 Code(s): E11.9 - TYPE 2 DIABETES MELLITUS WITHOUT COMPLICATIONS Status: Chronic Priority: Medium Current Visit: Yes Qualifiers: Diabetes mellitus type: type 2 Diabetes mellitus complication status: with hyperglycemia Diabetes mellitus adjunct faculty for medical terminology insulin use: without adjunct faculty for medical terminology use Qualified Code(s): E11.65 - Type 2 diabetes mellitus with hyperglycemia (7) Paranoid schizophrenia, chronic condition SNOMED Code(s): 70010218 Code(s): F20.0 - PARANOID SCHIZOPHRENIA Status: Chronic Priority: High Current Visit: Yes - Problem List Review Problem List Initiated/Reviewed/Updated: Yes - My Orders Last 24 Hours: My Active Orders 09/22/17 10:00 Insert Smith Catheter [Insert Urinary Catheter] [OM.PC] Q24H 09/23/17 10:00 Insert Smith Catheter [Insert Urinary Catheter] [OM.PC] Q24H - Plan Plan:: Patient admitted to Respite care for continued comfort care management and support. Guardian aware and family aware of patient status and slow decline. Continued comfort cares and monitoring. No changes to plan of care. 08/12/17 Patient is stable. We will not change any current management or meds. Continue feeding as tolerated and as comfortable as patient desires. Continue comfort cares. 08/17/17 Patient continues with comfort cares. Continue regular feeding as tolerated. No changes to medications. 09/01/17 No changes in status. Continue feeding and comfort cares. 09/14/17 Patient is stable. No changes to status. We will continue current cares, monitoring, skin cares, feeding and comfort cares. 09/22/17 Patient continues to be stable. No changes to management. Continue comfort cares.
[2017-09-23] MEDS: Citalopram 20 MG Tab PO SCH (09:55)
[2017-09-23] MEDS: Docusate Sodium 100 MG Cap PO SCH (09:56)
[2017-09-23] MEDS: Sennosides 8.6 MG Tab PO SCH (09:56)
[2017-09-23] MEDS: Non-Formulary Medication 1 Each (Metronidazole [Metronidazole 0.75% Cream] 1 APPLIC) TOP SCH (09:56)
[2017-09-23] MEDS: Acetaminophen 650 MG Tab.ER PO SCH ×2 (09:56→21:07)
[2017-09-23] MEDS: SEROQUEL 400 MG PO SCH (21:02)
[2017-09-23] MEDS: Erythromycin Base 0.5% Ophth Oint 3.5 GM Tube EYEBOTH SCH (21:07)
[2017-09-23] MEDS: LORazepam 2 MG/ML SDV SUBCUT PRN (21:08)
[2017-09-24] MEDS: Citalopram 20 MG Tab PO SCH (07:32)
[2017-09-24] MEDS: Non-Formulary Medication 1 Each (Metronidazole [Metronidazole 0.75% Cream] 1 APPLIC) TOP SCH (07:35)
[2017-09-24] MEDS: Acetaminophen 650 MG Tab.ER PO SCH ×2 (07:35→21:12)
[2017-09-24] MEDS: Acetaminophen/HYDROcodone 325-5 MG Tab PO PRN (21:11)
[2017-09-24] MEDS: LORazepam 0.5 MG Tab PO PRN (21:12)
[2017-09-24] MEDS: SEROQUEL 400 MG PO SCH (21:14)
[2017-09-24] MEDS: Erythromycin Base 0.5% Ophth Oint 3.5 GM Tube EYEBOTH SCH (21:14)
[2017-09-25] MEDS: Citalopram 20 MG Tab PO SCH (11:05)
[2017-09-25] MEDS: Acetaminophen 650 MG Tab.ER PO SCH (11:05)
[2017-09-25] MEDS: Non-Formulary Medication 1 Each (Metronidazole [Metronidazole 0.75% Cream] 1 APPLIC) TOP SCH (20:29)
[2017-09-26] MEDS: fentaNYL 25 MCG/HR Transdermal Patch TRDERM SCH (05:48)
[2017-09-26] MEDS: fentaNYL 12 MCG/HR Transdermal Patch TRDERM SCH (05:48)
[2017-09-26] MEDS: Erythromycin Base 0.5% Ophth Oint 3.5 GM Tube EYEBOTH SCH ×2 (06:29→19:45)
[2017-09-26] MEDS: SEROQUEL 400 MG PO SCH ×2 (06:30→19:45)
[2017-09-26] MEDS: Acetaminophen 650 MG Tab.ER PO SCH ×4 (06:31→19:45)
[2017-09-26] MEDS: Non-Formulary Medication 1 Each (Metronidazole [Metronidazole 0.75% Cream] 1 APPLIC) TOP SCH (08:23)
[2017-09-26] MEDS: Citalopram 20 MG Tab PO SCH ×3 (08:23→10:00)
[2017-09-26] MEDS: Morphine 2 MG/ML Syringe SUBCUT PRN (08:41)
[2017-09-26] MEDS: Acetaminophen/HYDROcodone 325-5 MG Tab PO PRN (14:20)
[2017-09-27] MEDS: Acetaminophen 650 MG Tab.ER PO SCH ×2 (08:59→22:13)
[2017-09-27] MEDS: Citalopram 20 MG Tab PO SCH (08:59)
[2017-09-27] MEDS: Non-Formulary Medication 1 Each (Metronidazole [Metronidazole 0.75% Cream] 1 APPLIC) TOP SCH (08:59)
[2017-09-27] MEDS: Acetaminophen/HYDROcodone 325-5 MG Tab PO PRN ×2 (08:59→13:00)
[2017-09-27] MEDS: Erythromycin Base 0.5% Ophth Oint 3.5 GM Tube EYEBOTH SCH (22:12)
[2017-09-27] MEDS: SEROQUEL 400 MG PO SCH (22:13)
[2017-09-28] MEDS: LORazepam 0.5 MG Tab PO PRN ×2 (02:45→20:27)
[2017-09-28] MEDS: Acetaminophen/HYDROcodone 325-5 MG Tab PO PRN ×3 (02:45→20:26)
[2017-09-28] MEDS: Non-Formulary Medication 1 Each (Metronidazole [Metronidazole 0.75% Cream] 1 APPLIC) TOP SCH (08:00)
[2017-09-28] MEDS: Acetaminophen 650 MG Tab.ER PO SCH ×2 (08:00→20:27)
[2017-09-28] MEDS: Citalopram 20 MG Tab PO SCH (08:00)
--- NOTE | 2017-09-28 09:11 | PCM.PN ---
- General Info Date of Service: 09/28/17 Subjective Update: Patient alert and eating well with Nursing staff. No recent changes to status. No concerns from staff or patients. Functional Status: Reports: Tolerating Diet - Review of Systems General: Reports: Weakness HEENT: Reports: No Symptoms Cardiovascular: Reports: No Symptoms Gastrointestinal: Reports: No Symptoms - Patient Data Vitals - Most Recent: Last Vital Signs Temp 37.1 C 09/16/17 07:38 Pulse 77 09/16/17 07:38 Resp 20 09/16/17 07:38 BP 153/55 H 09/16/17 07:38 Pulse Ox 97 09/16/17 07:38 Weight - Most Recent: 60.237 kg Med Orders - Current: Current Medications Acetaminophen (Tylenol Arthritis Pain) 650 mg PO BID [facility] Last Admin: 09/27/17 22:13 Dose: 650 mg Hydrocodone Bitart/Acetaminophen ([place] 325-5 Mg) 1 tab PO Q4H PRN PRN Reason: Pain Last Admin: 09/28/17 02:45 Dose: 1 tab Bisacodyl (Dulcolax) 10 mg RECTAL DAILY PRN PRN Reason: Constipation Last Admin: 08/06/17 11:25 Dose: 10 mg Citalopram Hydrobromide (Celexa) 20 mg PO DAILY [facility] Last Admin: 09/27/17 08:59 Dose: 20 mg Erythromycin (Erythromycin 0.5% Ophth Oint) 3.5 gm EYEBOTH BEDTIME [facility] Last Admin: 09/27/17 22:12 Dose: 1 applic Fentanyl (Duragesic) 25 mcg TRDERM Q72H [facility] Last Admin: 09/26/17 05:48 Dose: 25 mcg Fentanyl (Duragesic) 12 mcg TRDERM Q72H [facility] Last Admin: 09/26/17 05:48 Dose: 12 mcg Lorazepam (Ativan) 0.5 mg PO Q8HR PRN PRN Reason: Anxiety Last Admin: 09/28/17 02:45 Dose: 0.5 mg Lorazepam (Ativan) 1 mg SUBCUT Q4HR PRN PRN Reason: Anxiety Last Admin: 09/23/17 21:08 Dose: 1 mg Miscellaneous Information (Remove Patch) 1 ea TRDERM Q72H [facility] Last Admin: 09/26/17 06:30 Dose: 1 ea Morphine Sulfate (Morphine) 2 mg SUBCUT Q4H PRN PRN Reason: Pain Last Admin: 09/26/17 08:41 Dose: 2 mg Non-Formulary Medication (Metronidazole [Metronidazole 0.75% Cream]) 1 applic TOP DAILY [facility] Last Admin: 09/27/17 08:59 Dose: 1 applic Seroquel 400mg (Tablets) 1 each PO BEDTIME [facility] Last Admin: 09/27/17 22:13 Dose: 1 each Quetiapine Fumarate (Seroquel) 50 mg PO BEDTIME [facility] Last Admin: 09/27/17 22:13 Dose: 50 mg Quetiapine Fumarate (Seroquel) 50 mg PO DAILY@0800,1200 [facility] Last Admin: 09/27/17 12:00 Dose: 50 mg Quetiapine Fumarate (Seroquel) 200 mg PO DAILY@0800,1200 [facility] Last Admin: 09/27/17 12:00 Dose: 200 mg Scopolamine (Transderm-Scop) 1.5 mg TOP Q72H PRN PRN Reason: Other Senna/Docusate Sodium (Senna Plus) 1 tab PO BID@0800,1700 [facility] Last Admin: 09/27/17 17:00 Dose: 1 tab Discontinued Medications Acetaminophen (Tylenol) 650 mg PO BID [facility] Last Admin: 08/01/17 19:55 Dose: 650 mg Docusate Sodium (Colace) 100 mg PO BID [facility] Last Admin: 09/23/17 09:56 Dose: 100 mg Fentanyl (Duragesic) 25 mcg TRDERM Q72H [facility] Last Admin: 07/21/17 11:31 Dose: Not Given Fentanyl (Duragesic) 25 mcg TRDERM Q72H [facility] Last Admin: 07/28/17 17:32 Dose: Not Given Fentanyl (Duragesic) 25 mcg TRDERM Q72H [facility] Last Admin: 09/07/17 20:54 Dose: 25 mcg Lorazepam (Ativan) Confirm Administered Dose 2 mg .ROUTE .STK-MED ONE Stop: 07/25/17 17:35 Last Admin: 07/25/17 17:35 Dose: 2 mg Lorazepam (Ativan) 1 mg IM ONETIME ONE Stop: 07/25/17 17:39 Last Admin: 07/25/17 18:36 Dose: Not Given Miscellaneous Information (Remove Patch) 1 ea TRDERM Q72H [facility] Last Admin: 07/28/17 17:33 Dose: Not Given Miscellaneous Information (Remove Patch) 1 ea TRDERM Q72H [facility] Last Admin: 09/07/17 20:57 Dose: 1 ea Quetiapine Fumarate (Seroquel) 200 mg PO DAILY@0800,1200 [facility] Last Admin: 07/21/17 12:18 Dose: 250 mg Quetiapine Fumarate (Seroquel) Confirm Administered Dose 50 mg .ROUTE .STK-MED ONE Stop: 07/21/17 12:17 Last Admin: 07/21/17 15:07 Dose: Not Given Quetiapine Fumarate (Quetiapine Fumarate) Confirm Administered Dose 200 mg PO .STK-MED ONE Stop: 07/21/17 12:17 Last Admin: 07/21/17 15:07 Dose: Not Given Quetiapine Fumarate (Quetiapine Fumarate) Confirm Administered Dose 400 mg PO .STK-MED ONE Stop: 07/22/17 21:19 Last Admin: 07/22/17 21:37 Dose: Not Given Quetiapine Fumarate (Quetiapine Fumarate) Confirm Administered Dose 400 mg PO .STK-MED ONE Stop: 07/24/17 19:52 Last Admin: 07/25/17 12:34 Dose: Not Given Quetiapine Fumarate (Quetiapine Fumarate) Confirm Administered Dose 200 mg PO .STK-MED ONE Stop: 07/25/17 08:45 Last Admin: 07/25/17 11:36 Dose: Not Given Quetiapine Fumarate (Quetiapine Fumarate) Confirm Administered Dose 200 mg PO .STK-MED ONE Stop: 07/27/17 07:21 Last Admin: 07/27/17 16:55 Dose: Not Given Quetiapine Fumarate (Quetiapine Fumarate) Confirm Administered Dose 200 mg PO .STK-MED ONE Stop: 08/08/17 12:21 Last Admin: 08/08/17 13:36 Dose: Not Given Senna (Senna) 8.6 mg PO BID [facility] Last Admin: 09/23/17 09:56 Dose: 8.6 mg Senna/Docusate Sodium (Senna Plus) 1 tab PO BID [facility] Last Admin: 09/14/17 08:05 Dose: 1 tab - Exam General: Alert HEENT: Pupils Equal, Pupils Reactive Neck: Supple Lungs: Clear to Auscultation, Normal Respiratory Effort Cardiovascular: Regular Rate, Regular Rhythm GI/Abdominal Exam: Normal Bowel Sounds - Problem List & Annotations (1) H/O subdural hemorrhage SNOMED Code(s): 704241770 Code(s): Z86.79 - PERSONAL HISTORY OF OTHER DISEASES OF THE CIRCULATORY SYSTEM Status: Chronic Current Visit: Yes (2) Comfort measures only status SNOMED Code(s): 31369707296730 Code(s): Z51.5 - ENCOUNTER FOR PALLIATIVE CARE Status: Chronic Current Visit: Yes (3) Neurogenic bladder SNOMED Code(s): 908451901 Code(s): N31.9 - NEUROMUSCULAR DYSFUNCTION OF BLADDER, UNSPECIFIED Status: Chronic Current Visit: Yes (4) Palliative care patient SNOMED Code(s): 229197577 Code(s): Z51.5 - ENCOUNTER FOR PALLIATIVE CARE Status: Chronic Priority: High Current Visit: Yes (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 Code(s): F03.91 - UNSPECIFIED DEMENTIA WITH BEHAVIORAL DISTURBANCE Status: Chronic Priority: High Current Visit: Yes Qualifiers: Dementia behavioral disturbance: with behavioral disturbance Qualified Code (s): F02.81 - Dementia in other diseases classified elsewhere with behavioral disturbance (6) Diabetes mellitus SNOMED Code(s): 37289979 Code(s): E11.9 - TYPE 2 DIABETES MELLITUS WITHOUT COMPLICATIONS Status: Chronic Priority: Medium Current Visit: Yes Qualifiers: Diabetes mellitus type: type 2 Diabetes mellitus complication status: with hyperglycemia Diabetes mellitus half-way insulin use: without terminal carman use Qualified Code(s): E11.65 - Type 2 diabetes mellitus with hyperglycemia (7) Paranoid schizophrenia, chronic condition SNOMED Code(s): 43692180 Code(s): F20.0 - PARANOID SCHIZOPHRENIA Status: Chronic Priority: High Current Visit: Yes - Problem List Review Problem List Initiated/Reviewed/Updated: Yes - My Orders Last 24 Hours: My Active Orders 09/27/17 10:00 Insert Smith Catheter [Insert Urinary Catheter] [OM.PC] Q24H 09/28/17 10:00 Insert Smith Catheter [Insert Urinary Catheter] [OM.PC] Q24H - Plan Plan:: Patient admitted to Respite care for continued comfort care management and support. Guardian aware and family aware of patient status and slow decline. Continued comfort cares and monitoring. No changes to plan of care. 08/12/17 Patient is stable. We will not change any current management or meds. Continue feeding as tolerated and as comfortable as patient desires. Continue comfort cares. 08/17/17 Patient continues with comfort cares. Continue regular feeding as tolerated. No changes to medications. 09/01/17 No changes in status. Continue feeding and comfort cares. 09/14/17 Patient is stable. No changes to status. We will continue current cares, monitoring, skin cares, feeding and comfort cares. 09/22/17 Patient continues to be stable. No changes to management. Continue comfort cares. 09/28/17 No changes. Patient continues to tolerate diet and is eating well. No changes to status. Patient stable. We will continue current cares and management.
[2017-09-28] MEDS: Erythromycin Base 0.5% Ophth Oint 3.5 GM Tube EYEBOTH SCH (20:16)
[2017-09-28] MEDS: fentaNYL 25 MCG/HR Transdermal Patch TRDERM SCH (20:24)
[2017-09-28] MEDS: fentaNYL 12 MCG/HR Transdermal Patch TRDERM SCH (20:25)
[2017-09-28] MEDS: SEROQUEL 400 MG PO SCH (20:26)
[2017-09-29] MEDS: Acetaminophen 650 MG Tab.ER PO SCH ×2 (08:00→19:43)
[2017-09-29] MEDS: Non-Formulary Medication 1 Each (Metronidazole [Metronidazole 0.75% Cream] 1 APPLIC) TOP SCH (08:00)
[2017-09-29] MEDS: Acetaminophen/HYDROcodone 325-5 MG Tab PO PRN ×3 (08:00→19:43)
[2017-09-29] MEDS: Citalopram 20 MG Tab PO SCH (08:00)
[2017-09-29] MEDS: LORazepam 0.5 MG Tab PO PRN (19:43)
[2017-09-29] MEDS: Erythromycin Base 0.5% Ophth Oint 3.5 GM Tube EYEBOTH SCH (19:43)
[2017-09-29] MEDS: SEROQUEL 400 MG PO SCH (19:43)
[2017-09-30] MEDS: Non-Formulary Medication 1 Each (Metronidazole [Metronidazole 0.75% Cream] 1 APPLIC) TOP SCH (07:43)
[2017-09-30] MEDS: Citalopram 20 MG Tab PO SCH (07:43)
[2017-09-30] MEDS: Acetaminophen 650 MG Tab.ER PO SCH ×2 (07:44→19:30)
[2017-09-30] MEDS: Erythromycin Base 0.5% Ophth Oint 3.5 GM Tube EYEBOTH SCH (19:30)
[2017-09-30] MEDS: Acetaminophen/HYDROcodone 325-5 MG Tab PO PRN (19:30)
[2017-09-30] MEDS: SEROQUEL 400 MG PO SCH (19:30)
[2017-09-30] MEDS: LORazepam 0.5 MG Tab PO PRN (20:30)
[2017-10-01] MEDS: Acetaminophen 650 MG Tab.ER PO SCH ×2 (10:26→21:45)
[2017-10-01] MEDS: Citalopram 20 MG Tab PO SCH (10:27)
[2017-10-01] MEDS: Non-Formulary Medication 1 Each (Metronidazole [Metronidazole 0.75% Cream] 1 APPLIC) TOP SCH (10:27)
[2017-10-01] MEDS: Morphine 2 MG/ML Syringe SUBCUT PRN (19:45)
[2017-10-01] MEDS: Acetaminophen/HYDROcodone 325-5 MG Tab PO PRN (19:47)
[2017-10-01] MEDS: fentaNYL 25 MCG/HR Transdermal Patch TRDERM SCH (19:47)
[2017-10-01] MEDS: fentaNYL 12 MCG/HR Transdermal Patch TRDERM SCH (19:48)
[2017-10-01] MEDS: LORazepam 2 MG/ML SDV SUBCUT PRN (20:36)
[2017-10-01] MEDS: Erythromycin Base 0.5% Ophth Oint 3.5 GM Tube EYEBOTH SCH (21:45)
[2017-10-01] MEDS: SEROQUEL 400 MG PO SCH (21:45)
[2017-10-02] MEDS: Non-Formulary Medication 1 Each (Metronidazole [Metronidazole 0.75% Cream] 1 APPLIC) TOP SCH (10:05)
[2017-10-02] MEDS: Citalopram 20 MG Tab PO SCH (10:05)
[2017-10-02] MEDS: Acetaminophen 650 MG Tab.ER PO SCH ×2 (10:08→19:40)
[2017-10-02] MEDS: Acetaminophen/HYDROcodone 325-5 MG Tab PO PRN ×2 (12:25→19:40)
[2017-10-02] MEDS: LORazepam 0.5 MG Tab PO PRN (17:45)
[2017-10-02] MEDS: SEROQUEL 400 MG PO SCH (19:40)
[2017-10-02] MEDS: Erythromycin Base 0.5% Ophth Oint 3.5 GM Tube EYEBOTH SCH (20:12)
[2017-10-03] MEDS ORDERED: Loperamide 2 MG Cap ONE (02:45)
[2017-10-03] MEDS ORDERED: Loperamide 2 MG Cap PO PRN (03:00)
[2017-10-03] MEDS: Acetaminophen/HYDROcodone 325-5 MG Tab PO PRN ×2 (03:10→13:11)
[2017-10-03] MEDS ORDERED: Menthol/Zinc Oxide Ointment 113 GM Tube TOP ONE (03:20)
[2017-10-03] MEDS: Acetaminophen 650 MG Tab.ER PO SCH ×3 (13:07→20:05)
[2017-10-03] MEDS: Non-Formulary Medication 1 Each (Metronidazole [Metronidazole 0.75% Cream] 1 APPLIC) TOP SCH (13:08)
[2017-10-03] MEDS: Citalopram 20 MG Tab PO SCH (13:09)
[2017-10-03] MEDS: SEROQUEL 400 MG PO SCH (20:06)
[2017-10-03] MEDS: LORazepam 0.5 MG Tab PO PRN (20:07)
[2017-10-03] MEDS: Erythromycin Base 0.5% Ophth Oint 3.5 GM Tube EYEBOTH SCH (20:08)
[2017-10-04] MEDS: Citalopram 20 MG Tab PO SCH (08:58)
[2017-10-04] MEDS: Non-Formulary Medication 1 Each (Metronidazole [Metronidazole 0.75% Cream] 1 APPLIC) TOP SCH (08:58)
[2017-10-04] MEDS: Acetaminophen 650 MG Tab.ER PO SCH ×2 (09:00→21:13)
[2017-10-04] MEDS: fentaNYL 25 MCG/HR Transdermal Patch TRDERM SCH (21:09)
[2017-10-04] MEDS: fentaNYL 12 MCG/HR Transdermal Patch TRDERM SCH (21:10)
[2017-10-04] MEDS: Erythromycin Base 0.5% Ophth Oint 3.5 GM Tube EYEBOTH SCH (21:11)
[2017-10-04] MEDS: SEROQUEL 400 MG PO SCH (21:12)
[2017-10-05] MEDS: Acetaminophen/HYDROcodone 325-5 MG Tab PO PRN ×2 (00:30→05:25)
[2017-10-05] MEDS: Acetaminophen 650 MG Tab.ER PO SCH ×2 (09:00→19:35)
[2017-10-05] MEDS: Citalopram 20 MG Tab PO SCH (09:00)
[2017-10-05] MEDS: Non-Formulary Medication 1 Each (Metronidazole [Metronidazole 0.75% Cream] 1 APPLIC) TOP SCH (12:33)
[2017-10-05] MEDS: Erythromycin Base 0.5% Ophth Oint 3.5 GM Tube EYEBOTH SCH (19:33)
[2017-10-05] MEDS: SEROQUEL 400 MG PO SCH (19:34)
[2017-10-06] MEDS: Acetaminophen 650 MG Tab.ER PO SCH (07:50)
[2017-10-06] MEDS: Non-Formulary Medication 1 Each (Metronidazole [Metronidazole 0.75% Cream] 1 APPLIC) TOP SCH (07:50)
[2017-10-06] MEDS: Citalopram 20 MG Tab PO SCH (07:50)
[2017-10-06] MEDS: Acetaminophen/HYDROcodone 325-5 MG Tab PO PRN ×2 (07:50→12:00)
--- NOTE | 2017-10-06 13:39 | PCM.DCSUM1 ---
Discharge Summary - Hospital Course Brief History: Patient in respite care developed increased shortness of breath and CXR showed opacification of right side of lung. - Discharge Data Discharge Date: 10/06/17 Discharge Disposition: DC/Tfer to Acute Hospital 02 Condition: Undetermined - Discharge Diagnosis/Problem(s) (1) H/O subdural hemorrhage SNOMED Code(s): 182231143 ICD Code: Z86.79 - PERSONAL HISTORY OF OTHER DISEASES OF THE CIRCULATORY SYSTEM Status: Resolved Priority: Medium (2) Comfort measures only status SNOMED Code(s): 66264015798290 ICD Code: Z51.5 - ENCOUNTER FOR PALLIATIVE CARE Status: Chronic Priority : High (3) Neurogenic bladder SNOMED Code(s): 366664660 ICD Code: N31.9 - NEUROMUSCULAR DYSFUNCTION OF BLADDER, UNSPECIFIED Status : Chronic Priority: Medium (4) Palliative care patient SNOMED Code(s): 147739624 ICD Code: Z51.5 - ENCOUNTER FOR PALLIATIVE CARE Status: Chronic Priority : High (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 ICD Code: F03.91 - UNSPECIFIED DEMENTIA WITH BEHAVIORAL DISTURBANCE Status: Chronic Priority: High Qualifiers: Dementia behavioral disturbance: with behavioral disturbance Qualified Code (s): F02.81 - Dementia in other diseases classified elsewhere with behavioral disturbance (6) Diabetes mellitus SNOMED Code(s): 58921302 ICD Code: E11.9 - TYPE 2 DIABETES MELLITUS WITHOUT COMPLICATIONS Status: Chronic Priority: Medium Qualifiers: Diabetes mellitus type: type 2 Diabetes mellitus complication status: with hyperglycemia Diabetes mellitus chcf insulin use: without chcf use Qualified Code(s): E11.65 - Type 2 diabetes mellitus with hyperglycemia (7) Paranoid schizophrenia, chronic condition SNOMED Code(s): 62398056 ICD Code: F20.0 - PARANOID SCHIZOPHRENIA Status: Chronic Priority: High - Discharge Plan Prescriptions/Med Rec: Morphine 2 mg IV Q4H #20 syringe Home Medications: Home Meds Acetaminophen [Tylenol] 650 mg PO BID 04/10/17 [History] Citalopram Hydrobromide [Citalopram HBr] 20 mg PO BEDTIME 04/10/17 [History] Erythromycin Base [Erythromycin] 1 applic TOP BEDTIME 04/10/17 [History] QUEtiapine [SEROquel] 450 mg PO BEDTIME 04/10/17 [History] metroNIDAZOLE [metroNIDAZOLE 0.75% Cream] 1 applic TOP DAILY 04/10/17 [History] QUEtiapine Fumarate [Seroquel] 200 mg PO ACBREAKFAST 04/13/17 [History] QUEtiapine [SEROquel XR] 200 tab PO ACLUNCH 04/13/17 [History] Acetaminophen [Tylenol] 650 mg PO BID 30 Days tablet 07/19/17 [Rx] Acetaminophen/HYDROcodone [[place] 325-5 MG] 1 tab PO Q4H PRN 30 Days #180 tab 08/23 [Rx] Bisacodyl [Dulcolax] 10 mg RC DAILY PRN 30 Days #30 supp.rect 07/19/17 [Rx] Docusate Sodium/Sennosides [Senna Plus] 1 each PO BID 30 Days #60 tab 07/19/17 [ Rx] LORazepam [Ativan] 0.5 mg PO Q8HR PRN 30 Days #90 tablet 07/19/17 [Rx] LORazepam [Ativan] 1 mg SUBCUT Q4HR PRN 30 Days #180 mdv 07/19/17 [Rx] Scopolamine [Transderm-Scop] 1 patch TD Q3D PRN 30 Days #10 patch 07/19/17 [Rx] fentaNYL [Duragesic] 25 mcg TRDERM Q72H 30 Days #10 patch 07/19/17 [Rx] Docusate Sodium/Sennosides [Senna Plus] 1 tab PO BID 07/20/17 [History] Morphine 2 mg IV Q4H #20 syringe 07/21/17 [Rx] - Discharge Summary/Plan Comment Discharge Summary/Plan Comment: Patient admitted to inpatient for management of suspected pneumonia and pulmonary vascular congestion/edema. - Patient Data Vitals - Most Recent: Last Vital Signs Temp 36.8 C 10/04/17 01:15 Pulse 77 09/16/17 07:38 Resp 20 09/16/17 07:38 BP 153/55 H 09/16/17 07:38 Pulse Ox 97 09/16/17 07:38 Weight - Most Recent: 60.237 kg Med Orders - Current: Current Medications Acetaminophen (Tylenol Arthritis Pain) 650 mg PO BID BRIGITTE Last Admin: 10/06/17 07:50 Dose: 650 mg Hydrocodone Bitart/Acetaminophen ([place] 325-5 Mg) 1 tab PO Q4H PRN PRN Reason: Pain Last Admin: 10/06/17 07:50 Dose: 1 tab Bisacodyl (Dulcolax) 10 mg RECTAL DAILY PRN PRN Reason: Constipation Last Admin: 08/06/17 11:25 Dose: 10 mg Citalopram Hydrobromide (Celexa) 20 mg PO DAILY [facility] Last Admin: 10/06/17 07:50 Dose: 20 mg Erythromycin (Erythromycin 0.5% Ophth Oint) 3.5 gm EYEBOTH BEDTIME [facility] Last Admin: 10/05/17 19:33 Dose: 1 applic Fentanyl (Duragesic) 25 mcg TRDERM Q72H [facility] Last Admin: 10/04/17 21:09 Dose: 25 mcg Fentanyl (Duragesic) 12 mcg TRDERM Q72H [facility] Last Admin: 10/04/17 21:10 Dose: 12 mcg Loperamide HCl (Imodium) 2 mg PO Q4H PRN PRN Reason: Diarrhea Lorazepam (Ativan) 0.5 mg PO Q8HR PRN PRN Reason: Anxiety Last Admin: 10/03/17 20:07 Dose: 0.5 mg Lorazepam (Ativan) 1 mg SUBCUT Q4HR PRN PRN Reason: Anxiety Last Admin: 10/01/17 20:36 Dose: 1 mg Miscellaneous Information (Remove Patch) 1 ea TRDERM Q72H [facility] Last Admin: 10/04/17 21:12 Dose: 1 ea Morphine Sulfate (Morphine) 2 mg SUBCUT Q4H PRN PRN Reason: Pain Last Admin: 10/01/17 19:45 Dose: 2 mg Non-Formulary Medication (Metronidazole [Metronidazole 0.75% Cream]) 1 applic TOP DAILY [facility] Last Admin: 10/06/17 07:50 Dose: 1 applic Seroquel 400mg (Tablets) 1 each PO BEDTIME [facility] Last Admin: 10/05/17 19:34 Dose: 1 each Quetiapine Fumarate (Seroquel) 50 mg PO BEDTIME [facility] Last Admin: 10/05/17 19:34 Dose: 50 mg Quetiapine Fumarate (Seroquel) 50 mg PO DAILY@0800,1200 [facility] Last Admin: 10/06/17 07:50 Dose: 50 mg Quetiapine Fumarate (Seroquel) 200 mg PO DAILY@0800,1200 [facility] Last Admin: 10/06/17 07:50 Dose: 200 mg Scopolamine (Transderm-Scop) 1.5 mg TOP Q72H PRN PRN Reason: Other Last Admin: 10/05/17 12:38 Dose: 1.5 mg Senna/Docusate Sodium (Senna Plus) 1 tab PO BID@0800,1700 [facility] Last Admin: 10/06/17 07:50 Dose: 1 tab Discontinued Medications Acetaminophen (Tylenol) 650 mg PO BID [facility] Last Admin: 08/01/17 19:55 Dose: 650 mg Calamine/Phenol (Calmoseptine) Confirm Administered Dose 113 gm TOP .STK-MED ONE Stop: 10/03/17 03:21 Last Admin: 10/03/17 03:49 Dose: Not Given Docusate Sodium (Colace) 100 mg PO BID [facility] Last Admin: 09/23/17 09:56 Dose: 100 mg Fentanyl (Duragesic) 25 mcg TRDERM Q72H [facility] Last Admin: 07/21/17 11:31 Dose: Not Given Fentanyl (Duragesic) 25 mcg TRDERM Q72H [facility] Last Admin: 07/28/17 17:32 Dose: Not Given Fentanyl (Duragesic) 25 mcg TRDERM Q72H [facility] Last Admin: 09/07/17 20:54 Dose: 25 mcg Loperamide HCl (Imodium) Confirm Administered Dose 2 mg .ROUTE .STK-MED ONE Stop: 10/03/17 02:46 Last Admin: 10/03/17 02:50 Dose: 2 mg Lorazepam (Ativan) Confirm Administered Dose 2 mg .ROUTE .STK-MED ONE Stop: 07/25/17 17:35 Last Admin: 07/25/17 17:35 Dose: 2 mg Lorazepam (Ativan) 1 mg IM ONETIME ONE Stop: 07/25/17 17:39 Last Admin: 07/25/17 18:36 Dose: Not Given Miscellaneous Information (Remove Patch) 1 ea TRDERM Q72H [facility] Last Admin: 07/28/17 17:33 Dose: Not Given Miscellaneous Information (Remove Patch) 1 ea TRDERM Q72H [facility] Last Admin: 09/07/17 20:57 Dose: 1 ea Quetiapine Fumarate (Seroquel) 200 mg PO DAILY@0800,1200 [facility] Last Admin: 07/21/17 12:18 Dose: 250 mg Quetiapine Fumarate (Seroquel) Confirm Administered Dose 50 mg .ROUTE .STK-MED ONE Stop: 07/21/17 12:17 Last Admin: 07/21/17 15:07 Dose: Not Given Quetiapine Fumarate (Quetiapine Fumarate) Confirm Administered Dose 200 mg PO .STK-MED ONE Stop: 07/21/17 12:17 Last Admin: 07/21/17 15:07 Dose: Not Given Quetiapine Fumarate (Quetiapine Fumarate) Confirm Administered Dose 400 mg PO .STK-MED ONE Stop: 07/22/17 21:19 Last Admin: 07/22/17 21:37 Dose: Not Given Quetiapine Fumarate (Quetiapine Fumarate) Confirm Administered Dose 400 mg PO .STK-MED ONE Stop: 07/24/17 19:52 Last Admin: 07/25/17 12:34 Dose: Not Given Quetiapine Fumarate (Quetiapine Fumarate) Confirm Administered Dose 200 mg PO .PIERIS [employer]-MED ONE Stop: 07/25/17 08:45 Last Admin: 07/25/17 11:36 Dose: Not Given Quetiapine Fumarate (Quetiapine Fumarate) Confirm Administered Dose 200 mg PO .STPIERIS [employer]-MED ONE Stop: 07/27/17 07:21 Last Admin: 07/27/17 16:55 Dose: Not Given Quetiapine Fumarate (Quetiapine Fumarate) Confirm Administered Dose 200 mg PO .STPIERIS [employer]-MED ONE Stop: 08/08/17 12:21 Last Admin: 08/08/17 13:36 Dose: Not Given Senna (Senna) 8.6 mg PO BID [facility] Last Admin: 09/23/17 09:56 Dose: 8.6 mg Senna/Docusate Sodium (Senna Plus) 1 tab PO BID [facility] Last Admin: 09/14/17 08:05 Dose: 1 tab *Q Meaningful Use (DIS) - VTE *Q VTE Criteria *Q: - Stroke *Q Stroke Criteria *Q: - AMI *Q AMI Criteria *Q:
== END 2017-10-06 11:49 | DRG 951 ==
LOC: LB.MS 07-21 09:52
PROVIDERS: ADMIT Family Medicine; ATTEND Family Medicine
DX: Z75.5 Holiday relief care (principal); F20.0 Paranoid schizophrenia; Z66 Do not resuscitate; Z51.5 Encounter for palliative care; E11.9 Type 2 diabetes mellitus without complications; Z86.79 Personal history of other diseases of the circulatory system; F03.90 Unspecified dementia, unspecified severity, without behavioral disturbance, psychotic disturbance, mood disturbance, and anxiety; H91.90 Unspecified hearing loss, unspecified ear; N31.9 Neuromuscular dysfunction of bladder, unspecified; Z88.5 Allergy status to narcotic agent
CPT/HCPCS: 51702; 82962; A9270-GY; J2060; J2270

== ENCOUNTER 2017-10-06 08:00 | Inpatient (IN) | payer MEDICARE, BC ==
[2017-10-06] MEDS ORDERED: Sodium Chloride 0.9% 10 ML Syringe FLUSH PRN ×2 (11:46)
--- NOTE | 2017-10-06 11:53 | PCM.HP ---
H&P History of Present Illness - General Date of Service: 10/06/17 Admit Problem/Dx: Admission Diagnosis/Problem Admission Diagnosis/Problem Pneumonia Source of Information: Old Records, RN, RN Notes Reviewed History Limitations: Reports: Physical Impairment, Uncooperative, Other ( deafness) - History of Present Illness Initial Comments - Free Text/Narative: This is a 86yo M in respite care and comfort cares. He developed shortness of breath with possible pneumonia from aspiration. CXR shows right whole lung partial opacification. Onset of Symptoms: Reports: Today Duration of Symptoms: Reports: Hour(s): Location: Reports: Chest Improves with: Reports: None Worsens with: Reports: None - Related Data Allergies/Adverse Reactions: Allergies Allergy/AdvReac Type Severity Reaction Status Date / Time hydromorphone [From Dilaudid] AdvReac Wheezing Verified 07/21/17 08:00 Home Medications: Home Meds Acetaminophen [Tylenol] 650 mg PO BID 04/10/17 [History] Citalopram Hydrobromide [Citalopram HBr] 20 mg PO BEDTIME 04/10/17 [History] Erythromycin Base [Erythromycin] 1 applic TOP BEDTIME 04/10/17 [History] QUEtiapine [SEROquel] 450 mg PO BEDTIME 04/10/17 [History] metroNIDAZOLE [metroNIDAZOLE 0.75% Cream] 1 applic TOP DAILY 04/10/17 [History] QUEtiapine Fumarate [Seroquel] 200 mg PO ACBREAKFAST 04/13/17 [History] QUEtiapine [SEROquel XR] 200 tab PO ACLUNCH 04/13/17 [History] Acetaminophen [Tylenol] 650 mg PO BID 30 Days tablet 07/19/17 [Rx] Acetaminophen/HYDROcodone [[place] 325-5 MG] 1 tab PO Q4H PRN 30 Days #180 tab 08/23 [Rx] Bisacodyl [Dulcolax] 10 mg RC DAILY PRN 30 Days #30 supp.rect 07/19/17 [Rx] Docusate Sodium/Sennosides [Senna Plus] 1 each PO BID 30 Days #60 tab 07/19/17 [ Rx] LORazepam [Ativan] 0.5 mg PO Q8HR PRN 30 Days #90 tablet 07/19/17 [Rx] LORazepam [Ativan] 1 mg SUBCUT Q4HR PRN 30 Days #180 mdv 07/19/17 [Rx] Scopolamine [Transderm-Scop] 1 patch TD Q3D PRN 30 Days #10 patch 07/19/17 [Rx] fentaNYL [Duragesic] 25 mcg TRDERM Q72H 30 Days #10 patch 07/19/17 [Rx] Docusate Sodium/Sennosides [Senna Plus] 1 tab PO BID 07/20/17 [History] Morphine 2 mg IV Q4H #20 syringe 07/21/17 [Rx] Past Medical History HEENT History: Reports: Hard of Hearing Other HEENT History: [facility] Cardiovascular History: Reports: Hypertension Gastrointestinal History: Reports: Chronic Constipation Genitourinary History: Reports: Neurogenic Bladder, Retention, Urinary Other Genitourinary History: Being treated for UTI in [place] and urinary obstruction. Smith cath leg bag in place with cloudy juan urine Musculoskeletal History: Reports: Other (See Below) Other Musculoskeletal History: Generalized weakness Neurological History: Reports: Alzheimers Disease Psychiatric History: Reports: Alzheimers Disease, Dementia, Depression, Schizophrenia Endocrine/Metabolic History: Reports: Diabetes, Type II Dermatologic History: Reports: Psoriasis, Seborrheic Dermatitis, Other (See Below) Other Dermatologic History: Toenail Fungus. Rosacia - Past Surgical History HEENT Surgical History: Reports: None Cardiovascular Surgical History: Reports: None Male Surgical History: Reports: None Endocrine Surgical History: Reports: None Neurological Surgical History: Reports: None Musculoskeletal Surgical History: Reports: Other (See Below) Other Musculoskeletal Surgeries/Procedures:: chronic back pain Dermatological Surgical History: Reports: None Social & Family History - Family History Family Medical History: Noncontributory - Tobacco Use Smoking Status *Q: Unknown Ever Smoked Second Hand Smoke Exposure: No - Caffeine Use Caffeine Use: Reports: Coffee - Recreational Drug Use Recreational Drug Use: No - Living Situation & Occupation Living situation: Reports: Extended Care Facility Occupation: Disabled H&P Review of Systems - Review of Systems: Review Of Systems: Unable To Obtain Free Text/Narrative: Some ROS obtained from nursing staff. Patient comfortable but has increased sob. No other symptoms noted. Exam - Exam Exam: See Below - Exam General: Obtunded Neck: Supple Lungs: Crackles (whole right side) Cardiovascular: Regular Rate, Regular Rhythm GI/Abdominal Exam: Normal Bowel Sounds Back Exam: Normal Inspection Extremities: Other (thin arms and legs) - Patient Data Result Diagrams: 10/06/17 12:05 10/06/17 12:05 Trevor Results Last 24 hrs: Microbiology 10/06/17 09:00 Influenza Type A Antigen Screen - Final Nasal, Unspecified NEGATIVE INFLUENZA A VIRUS AG Influenza Type B Antigen Screen - Final NEGATIVE INFLUENZA B VIRUS AG *Q Meaningful Use (ADM) - VTE *Q VTE Criteria *Q: - Stroke *Q Stroke Criteria *Q: - AMI *Q AMI Criteria *Q: - Problem List (1) Pneumonia SNOMED Code(s): 414830904 ICD Code: J18.9 - PNEUMONIA, UNSPECIFIED ORGANISM Status: Suspected Priority: High Current Visit: Yes Qualifiers: Pneumonia type: aspiration pneumonia Aspiration pneumonia type: unspecified Laterality: right Lung location: unspecified part of lung Qualified Code(s): J69.0 - Pneumonitis due to inhalation of food and vomit (2) Comfort measures only status SNOMED Code(s): 72070963986926 ICD Code: Z51.5 - ENCOUNTER FOR PALLIATIVE CARE Status: Chronic Priority : High Current Visit: Yes (3) Dementia associated with other underlying disease ICD Code: F03.91 - UNSPECIFIED DEMENTIA WITH BEHAVIORAL DISTURBANCE Status: Chronic Priority: High Current Visit: Yes Qualifiers: Dementia behavioral disturbance: with behavioral disturbance Qualified Code (s): F02.81 - Dementia in other diseases classified elsewhere with behavioral disturbance (4) Diabetes mellitus SNOMED Code(s): 65979936 ICD Code: E11.9 - TYPE 2 DIABETES MELLITUS WITHOUT COMPLICATIONS Status: Chronic Priority: Medium Current Visit: Yes Qualifiers: Diabetes mellitus type: type 2 Diabetes mellitus complication status: with hyperglycemia Diabetes mellitus exterminator termite insulin use: without residential use Qualified Code(s): E11.65 - Type 2 diabetes mellitus with hyperglycemia (5) H/O subdural hemorrhage SNOMED Code(s): 101091338 ICD Code: Z86.79 - PERSONAL HISTORY OF OTHER DISEASES OF THE CIRCULATORY SYSTEM Status: Chronic Priority: Medium Current Visit: Yes (6) Neurogenic bladder SNOMED Code(s): 741020701 ICD Code: N31.9 - NEUROMUSCULAR DYSFUNCTION OF BLADDER, UNSPECIFIED Status : Chronic Current Visit: Yes (7) Palliative care patient SNOMED Code(s): 390205980 ICD Code: Z51.5 - ENCOUNTER FOR PALLIATIVE CARE Status: Chronic Priority : High Current Visit: Yes (8) Paranoid schizophrenia, chronic condition SNOMED Code(s): 15701540 ICD Code: F20.0 - PARANOID SCHIZOPHRENIA Status: Chronic Priority: High Current Visit: No (9) Incontinence overflow, urine SNOMED Code(s): 931030782 ICD Code: N39.490 - OVERFLOW INCONTINENCE Status: Acute Priority: Low Current Visit: No Problem List Initiated/Reviewed/Updated: Yes Orders Last 24hrs: Active Orders 24 hr Category Date Time Status Patient Status [ADT] Routine ADT 10/06/17 11:49 Ordered Communication Order [RC] ASDIRECTED Care 10/06/17 11:48 Ordered Oxygen Therapy [RC] PRN Care 10/06/17 11:49 Ordered Pneumonia Education [RC] DAILY Care 10/06/17 11:46 Ordered RT Incentive Spirometry [RC] ASDIRECTED Care 10/06/17 11:46 Ordered Vital Signs [RC] Q4H Care 10/06/17 11:49 Ordered Nothing per Oral Now Diet [DIET] Diet 10/06/17 Dinner Ordered Chest 1V Frontal [CR] Routine Exams 10/06/17 09:00 Taken CULTURE BLOOD [BC] Routine Lab 10/06/17 11:46 Ordered CULTURE BLOOD [BC] Stat Lab 10/06/17 11:49 Ordered CULTURE SPUTUM + SMEAR [RM] Stat Lab 10/06/17 11:46 Uncollected Clindamycin Phosphate [Cleocin] 600 mg Med 10/06/17 12:00 Ordered Dextrose 5% in Water 50 ml IV Q8H Lactated Ringers @ 125 MLS/HR(1000ml) Med 10/06/17 12:00 Ordered Lactated Ringers [Ringers, Lactated] 1,000 ml IV ASDIRECTED Levofloxacin/Dextrose 5%-Water [Levaquin in D5W 750 MG/ Med 10/06/17 12:00 Ordered 150 ML] 750 mg Premix Bag 1 bag IV Q24H Piperacillin/Tazobactam [Zosyn] Med 10/06/17 12:00 Ordered 4.5 gm IV Q6H Sodium Chloride 0.9% [Saline Flush] Med 10/06/17 11:46 Ordered 10 ml FLUSH ASDIRECTED PRN Sodium Chloride 0.9% [Saline Flush] Med 10/06/17 11:46 Ordered 10 ml FLUSH ASDIRECTED PRN Give supplemental Oxygen PRN [COMM] Routine Oth 10/06/17 11:46 Ordered Peripheral IV Insertion Adult [OM.PC] Stat Oth 10/06/17 11:46 Ordered Resuscitation Status Routine Resus Stat 10/06/17 11:49 Ordered Medication Orders Clindamycin Phosphate 600 mg/ (Dextrose/Water) 54 mls @ 150 mls/hr IV Q8H BRIGITTE Lactated Ringer's (Ringers, Lactated) 1,000 mls @ 125 mls/hr IV ASDIRECTED BRIGITTE Levofloxacin/Dextrose 750 mg/ (Premix) 150 mls @ 150 mls/hr IV Q24H BRIGITTE Stop: 10/10/17 12:59 Piperacillin Sod/Tazobactam Sod (Zosyn) 4.5 gm IV Q6H BRIGITTE Sodium Chloride (Saline Flush) 10 ml FLUSH ASDIRECTED PRN PRN Reason: Keep Vein Open Sodium Chloride (Saline Flush) 10 ml FLUSH ASDIRECTED PRN PRN Reason: Keep Vein Open Assessment/Plan Comment:: [facility] is agreeable to acute treatment of suspected pneumonia and then may be placed back to comfort cares if no improvement or resolution of symptoms. Pneumonia - blood cultures to be done prior to start of Levofloxacin and Zosyn. Clindamycin in addition due to risk of aspiration pneumonia which is highly likely. Pulmonary congestion - lasix started BID Repeat CXR in 1-2 days. F/u labs and repeat labs in AM.
[2017-10-06] MEDS ORDERED: Piperacillin/Tazobactam 4.5 GM Vial IV SCH (12:00)
[2017-10-06] MEDS: Lactated Ringers 1,000 ML IV SCH ×2 (13:00→22:55)
[2017-10-06] MEDS ORDERED: Clindamycin Phosphate 600 MG/4 ML SDV ONE (13:07)
[2017-10-06] MEDS: Clindamycin Phosphate 600 MG in Dextrose 5% in Water 50 ML IV SCH ×4 (13:10→19:40)
[2017-10-06] MEDS ORDERED: Bisacodyl 10 MG Supp RECTAL PRN (13:31)
[2017-10-06] MEDS: Levofloxacin/Dextrose 5%-Water 750 MG in Premix Bag 1 BAG IV SCH (14:31)
[2017-10-06] MEDS: Piperacillin/Tazobactam 4.5 GM in Sodium Chloride 0.9% 50 ML IV SCH ×2 (15:23→20:20)
[2017-10-06] MEDS: Acetaminophen/HYDROcodone 325-5 MG Tab PO PRN ×2 (17:33→21:24)
[2017-10-06] MEDS: Furosemide 40 MG/4 ML VIAL IVPUSH SCH (17:59)
[2017-10-06] MEDS ORDERED: QUEtiapine Fumarate 200 MG TABLET PO ONE (19:27)
[2017-10-06] MEDS: LORazepam 2 MG/ML MDV SUBCUT PRN (19:45)
[2017-10-06] MEDS: LORazepam 0.5 MG Tab PO PRN (20:30)
[2017-10-06] MEDS: Acetaminophen 325 MG Tab PO SCH (20:30)
--- NOTE | 2017-10-07 00:43 | CR ---
DATE OF SERVICE: 10/06/2017 CLINICAL DATA: Congestion. AP CHEST: Comparison is made to a prior exam dated 05/10/2017. The heart size is normal. The aorta is calcified and ectatic. There is eventration of the right hemidiaphragm, and there is atelectasis of the entire right lung with some shift of the mediastinal contents to the right. There are areas of increased density and consolidation in the right apex and right lower lung. Pneumonia should be considered. The left lung appears clear. No pneumothorax. Followup exam is recommended. [id number] MTDD
[2017-10-07] MEDS: Piperacillin/Tazobactam 4.5 GM in Sodium Chloride 0.9% 50 ML IV SCH ×5 (02:38→20:45)
[2017-10-07] MEDS: Clindamycin Phosphate 600 MG in Dextrose 5% in Water 50 ML IV SCH ×6 (03:58→21:57)
[2017-10-07] MEDS: Furosemide 40 MG/4 ML VIAL IVPUSH SCH (08:46)
[2017-10-07] MEDS: Acetaminophen 325 MG Tab PO SCH ×2 (08:51→22:00)
[2017-10-07] MEDS: Lactated Ringers 1,000 ML IV SCH (08:54)
--- NOTE | 2017-10-07 09:28 | CR ---
DATE OF SERVICE: 10/07/2017 CLINICAL DATA: Shortness of breath. AP PORTABLE CHEST: Comparison is made to a prior exam dated 10/06/2017. The heart size is stable. The right lung is clear and better aerated than on the prior exam. There is persistent increased density in the right mid and lower lung consistent with infiltrate or atelectasis. There is also increased density in the left lung base on today's exam consistent with infiltrate or atelectasis. Again pneumonia should be considered. The exam is otherwise unchanged from the prior. No pneumothorax. No pleural effusions. Continued [facility]up is recommended. [id number] [facility]
[2017-10-07] MEDS: Citalopram 20 MG Tab PO SCH (10:26)
[2017-10-07] MEDS ORDERED: QUEtiapine Fumarate 200 MG TABLET PO ONE ×3 (13:09→19:10)
--- NOTE | 2017-10-07 13:20 | PCM.PN ---
- General Info Date of Service: 10/07/17 Subjective Update: Patient resting and breathing comfortably. Patient unable to reply but is alert and responsive on stimuli. Nursing staff have noted improvement in alertness and breathing. Functional Status: Reports: Tolerating Diet - Review of Systems General: Reports: Weakness HEENT: Reports: No Symptoms Pulmonary: Reports: No Symptoms Cardiovascular: Reports: No Symptoms Gastrointestinal: Reports: No Symptoms - Patient Data Vitals - Most Recent: Last Vital Signs Temp 36.4 C 10/07/17 04:00 Pulse 71 10/07/17 04:00 Resp 16 10/07/17 04:00 BP 106/46 L 10/06/17 17:59 Pulse Ox 92 L 10/07/17 04:00 I&O - Last 24 Hours: Intake & Output 10/06/17 10/07/17 10/07/17 22:59 06:59 14:59 Intake Total 150 1492 Output Total 200 1000 Balance -50 492 Lab Results Last 24 Hours: Laboratory Results - last 24 hr 10/07/17 10/07/17 Range/Units 07:20 07:20 WBC 5.8 (4.0-11.0) K/uL RBC 3.68 L (4.50-6.50) M/uL Hgb 11.3 L (13.0-18.0) g/dL Hct 34.7 L (40.0-54.0) % MCV 94 (76-96) fL MCH 30.7 (27.0-32.0) pg MCHC 32.6 (31.0-35.0) g/dL RDW 14.2 (11.0-16.0) % Plt Count 209 (150-400) K/uL MPV 9.0 (6.0-10.0) fL Neut % (Auto) 63.5 (45.0-70.0) % Lymph % (Auto) 20.1 (20.0-40.0) % [place] % (Auto) 15.3 H (3.0-10.0) % Eos % (Auto) 0.9 L (1.0-5.0) % Baso % (Auto) 0.2 (0.0-0.5) % Neut # (Auto) 3.71 (2.00-7.50) K/uL Lymph # (Auto) 1.17 L (1.50-4.00) K/uL [place] # (Auto) 0.89 H (0.20-0.80) K/uL Eos # (Auto) 0.05 (0.04-0.40) K/uL Baso # (Auto) 0.01 L (0.02-0.10) K/uL Sodium 152 H (136-145) mmol/L Potassium 3.6 (3.5-5.1) mmol/L Chloride 112 H (98-107) mmol/L Carbon Dioxide 32.5 H (21.0-32.0) mmol/L Anion Gap 11.1 (5.0-15.0) mmol/L BUN 29 H (8-26) mg/dL Creatinine 1.09 (0.70-1.30) mg/dL Est Cr Clr Drug Dosing TNP Estimated GFR (MDRD) > 60 (>60) MLS/MIN BUN/Creatinine Ratio 26.6 H (6-25) Glucose 138 H (74-100) mg/dL Calcium 8.3 L (8.5-10.1) mg/dL Trevor Results Last 24 Hours: Microbiology 10/06/17 12:10 Aerobic Blood Culture - Preliminary Blood - Arm, Right NO GROWTH AFTER 1 DAY Anaerobic Blood Culture - Preliminary NO GROWTH AFTER 1 DAY 10/06/17 12:05 Aerobic Blood Culture - Preliminary Blood - Arm, Left NO GROWTH AFTER 1 DAY Anaerobic Blood Culture - Preliminary NO GROWTH AFTER 1 DAY 10/06/17 09:00 Influenza Type A Antigen Screen - Final Nasal, Unspecified NEGATIVE INFLUENZA A VIRUS AG Influenza Type B Antigen Screen - Final NEGATIVE INFLUENZA B VIRUS AG Med Orders - Current: Current Medications Acetaminophen (Tylenol) 650 mg PO BID [facility] Last Admin: 10/07/17 08:51 Dose: Not Given Hydrocodone Bitart/Acetaminophen ([place] 325-5 Mg) 1 tab PO Q4H PRN PRN Reason: Pain Last Admin: 10/06/17 21:24 Dose: 1 tab Bisacodyl (Dulcolax) 10 mg RECTAL DAILY PRN PRN Reason: Constipation Citalopram Hydrobromide (Celexa) 20 mg PO DAILY [facility] Last Admin: 10/07/17 10:26 Dose: Not Given Fentanyl (Duragesic) 25 mcg TRDERM Q72H [facility] Fentanyl (Duragesic) 12 mcg TRDERM Q72H [facility] Furosemide (Lasix) 40 mg IVPUSH DAILY [facility] Last Admin: 10/07/17 08:46 Dose: 40 mg Clindamycin Phosphate 600 mg/ (Dextrose/Water) 54 mls @ 150 mls/hr IV Q8H [facility] Stop: 10/10/17 23:59 Last Admin: 10/07/17 12:43 Dose: 150 mls/hr Levofloxacin/Dextrose 750 mg/ (Premix) 150 mls @ 150 mls/hr IV Q24H [facility] Stop: 10/10/17 12:59 Last Admin: 10/06/17 14:31 Dose: Not Given Piperacillin Sod/Tazobactam (Sod 4.5 gm/ Sodium Chloride) 50 mls @ 100 mls/hr IV Q6H [facility] Stop: 10/10/17 23:59 Last Admin: 10/07/17 08:53 Dose: 100 mls/hr Dextrose/Sodium Chloride (Dextrose 5%-1/4 Ns) 1,000 mls @ 125 mls/hr IV ASDIRECTED [facility] Lorazepam (Ativan) 0.5 mg PO Q8HR PRN PRN Reason: Anxiety Last Admin: 10/06/17 20:30 Dose: 0.5 mg Lorazepam (Ativan) 1 mg SUBCUT Q4HR PRN PRN Reason: Anxiety Last Admin: 10/06/17 19:45 Dose: 1 mg Miscellaneous Information (Remove Patch) 1 ea TRDERM Q72H [facility] Miscellaneous Information (Remove Patch) 1 ea TRDERM Q72H [facility] Non-Formulary Medication (Metronidazole [Metronidazole 0.75% Cream]) 1 applic TOP DAILY [facility] Quetiapine Fumarate (Seroquel) 200 mg PO BID@0800,1200 [facility] Quetiapine Fumarate (Seroquel) 50 mg PO BID@0800,1200 [facility] Quetiapine Fumarate (Seroquel) 50 mg PO BEDTIME [facility] Quetiapine Fumarate (Seroquel) 400 mg PO BEDTIME [facility] Scopolamine (Transderm-Scop) 1.5 mg TOP Q72H [facility] Senna/Docusate Sodium (Senna Plus) 1 tab PO BID [facility] Last Admin: 10/07/17 08:51 Dose: Not Given Senna/Docusate Sodium (Senna Plus) 1 tab PO BID@0800,1700 [facility] Sodium Chloride (Saline Flush) 10 ml FLUSH ASDIRECTED PRN PRN Reason: Keep Vein Open Discontinued Medications Clindamycin Phosphate (Cleocin) Confirm Administered Dose 600 mg .ROUTE .STK- MED ONE Stop: 10/06/17 13:08 Last Admin: 10/06/17 14:32 Dose: Not Given Lactated Ringer's (Ringers, Lactated) 1,000 mls @ 125 mls/hr IV ASDIRECTED [facility] Last Admin: 10/07/17 08:54 Dose: 125 mls/hr Quetiapine Fumarate (Seroquel) 400 mg PO TID [facility] Last Admin: 10/07/17 10:26 Dose: Not Given Quetiapine Fumarate (Seroquel) Confirm Administered Dose 50 mg .ROUTE .STK-MED ONE Stop: 10/06/17 19:27 Last Admin: 10/06/17 21:11 Dose: Not Given Quetiapine Fumarate (Quetiapine Fumarate) Confirm Administered Dose 400 mg PO .STK-MED ONE Stop: 10/06/17 19:28 Last Admin: 10/06/17 21:11 Dose: Not Given Quetiapine Fumarate (Seroquel) 50 mg PO TID [facility] Last Admin: 10/07/17 10:27 Dose: Not Given Quetiapine Fumarate (Quetiapine Fumarate) Confirm Administered Dose 200 mg PO .[employer]-MED ONE Stop: 10/07/17 13:10 - Exam General: Alert HEENT: Pupils Equal, Pupils Reactive Neck: Supple Lungs: Decreased Breath Sounds Cardiovascular: Regular Rate, Regular Rhythm GI/Abdominal Exam: Normal Bowel Sounds Skin: Warm, Dry, Intact - Problem List & Annotations (1) Pneumonia SNOMED Code(s): 257807888 Code(s): J18.9 - PNEUMONIA, UNSPECIFIED ORGANISM Status: Suspected Priority: High Current Visit: Yes Qualifiers: Pneumonia type: aspiration pneumonia Aspiration pneumonia type: unspecified Laterality: right Lung location: unspecified part of lung Qualified Code(s): J69.0 - Pneumonitis due to inhalation of food and vomit (2) Comfort measures only status SNOMED Code(s): 54959506928278 Code(s): Z51.5 - ENCOUNTER FOR PALLIATIVE CARE Status: Chronic Priority: High Current Visit: Yes (3) Dementia associated with other underlying disease Code(s): F03.91 - UNSPECIFIED DEMENTIA WITH BEHAVIORAL DISTURBANCE Status: Chronic Priority: High Current Visit: Yes Qualifiers: Dementia behavioral disturbance: with behavioral disturbance Qualified Code (s): F02.81 - Dementia in other diseases classified elsewhere with behavioral disturbance (4) Diabetes mellitus SNOMED Code(s): 83099355 Code(s): E11.9 - TYPE 2 DIABETES MELLITUS WITHOUT COMPLICATIONS Status: Chronic Priority: Medium Current Visit: Yes Qualifiers: Diabetes mellitus type: type 2 Diabetes mellitus complication status: with hyperglycemia Diabetes mellitus shelter insulin use: without shelter use Qualified Code(s): E11.65 - Type 2 diabetes mellitus with hyperglycemia (5) H/O subdural hemorrhage SNOMED Code(s): 037365601 Code(s): Z86.79 - PERSONAL HISTORY OF OTHER DISEASES OF THE CIRCULATORY SYSTEM Status: Chronic Priority: Medium Current Visit: Yes (6) Neurogenic bladder SNOMED Code(s): 476266454 Code(s): N31.9 - NEUROMUSCULAR DYSFUNCTION OF BLADDER, UNSPECIFIED Status: Chronic Current Visit: Yes (7) Palliative care patient SNOMED Code(s): 374292132 Code(s): Z51.5 - ENCOUNTER FOR PALLIATIVE CARE Status: Chronic Priority: High Current Visit: Yes (8) Paranoid schizophrenia, chronic condition SNOMED Code(s): 04862397 Code(s): F20.0 - PARANOID SCHIZOPHRENIA Status: Chronic Priority: High Current Visit: No (9) Incontinence overflow, urine SNOMED Code(s): 322785803 Code(s): N39.490 - OVERFLOW INCONTINENCE Status: Acute Priority: Low Current Visit: No (10) Hypernatremia SNOMED Code(s): 36740820 Code(s): E87.0 - HYPEROSMOLALITY AND HYPERNATREMIA Status: Acute Priority : High Current Visit: Yes - Problem List Review Problem List Initiated/Reviewed/Updated: Yes - My Orders Last 24 Hours: My Active Orders 10/06/17 13:31 Bisacodyl [Dulcolax] 10 mg RECTAL DAILY PRN LORazepam [Ativan] 0.5 mg PO Q8HR PRN LORazepam [Ativan] 1 mg SUBCUT Q4HR PRN 10/06/17 13:40 CULTURE SPUTUM + SMEAR [RM] Stat 10/06/17 14:33 Acetaminophen/HYDROcodone [[place] 325-5 MG] 1 tab PO Q4H PRN 10/06/17 14:45 Piperacillin/Tazobactam [Zosyn] 4.5 gm Sodium Chloride 0.9% [Normal Saline] 50 ml IV Q6H 10/06/17 17:30 Furosemide [Lasix] 40 mg IVPUSH DAILY 10/06/17 20:00 Acetaminophen [Tylenol] 650 mg PO BID Docusate Sodium/Sennosides [Senna Plus] 1 tab PO BID 10/06/17 Dinner Nothing per Oral Now Diet [DIET] 10/07/17 08:00 Citalopram [Celexa] 20 mg PO DAILY metroNIDAZOLE [metroNIDAZOLE 0.75% Cream] 1 applic TOP DAILY 10/07/17 12:00 QUEtiapine [SEROquel] 200 mg PO BID@0800,1200 QUEtiapine [SEROquel] 50 mg PO BID@0800,1200 10/07/17 13:30 Dextrose 5 %-0.2 % NaCl [Dextrose 5%-1/4 NS] 1,000 ml IV ASDIRECTED 10/07/17 17:00 Docusate Sodium/Sennosides [Senna Plus] 1 tab PO BID@0800,1700 10/07/17 20:00 QUEtiapine [SEROquel] 400 mg PO BEDTIME QUEtiapine [SEROquel] 50 mg PO BEDTIME Remove Patch 1 ea TRDERM Q72H fentaNYL [Duragesic] 12 mcg TRDERM Q72H fentaNYL [Duragesic] 25 mcg TRDERM Q72H 10/08/17 05:11 BASIC METABOLIC PANEL,BMP [CHEM] AM CBC WITH AUTO DIFF [HEME] AM 10/08/17 12:00 Remove Patch 1 ea TRDERM Q72H Scopolamine [Transderm-Scop] 1.5 mg TOP Q72H - Plan Plan:: [facility] Guardian is agreeable to acute treatment of suspected pneumonia and then may be placed back to comfort cares if no improvement or resolution of symptoms. Pneumonia - blood cultures to be done prior to start of Levofloxacin and Zosyn. Clindamycin in addition due to risk of aspiration pneumonia which is highly likely. Pulmonary congestion - lasix started BID Repeat CXR in 1-2 days. F/u labs and repeat labs in AM. 10/07/17 Repeat CXR shows significant improvement of right lung. We will continue current antibiotics and lasix. Hypernatremia- we will change from lactated ringers to D5 1/4 NS at 125 and repeat labs in am. Pneumonia - continue to monitor vitals, fever, and WBC. Pulmonary congestion - improved - continue lasix at this time. F/u labs in AM.
[2017-10-07] MEDS: Levofloxacin/Dextrose 5%-Water 750 MG in Premix Bag 1 BAG IV SCH (13:24)
[2017-10-07] MEDS: Dextrose 5 %-0.2 % NaCl 1,000 ML IV SCH (16:16)
[2017-10-07] MEDS: Non-Formulary Medication 1 Each (Metronidazole [Metronidazole 0.75% Cream] 1 APPLIC) TOP SCH (17:55)
[2017-10-07] MEDS ORDERED: fentaNYL 25 MCG/HR Transdermal Patch ONE (18:29)
[2017-10-07] MEDS ORDERED: fentaNYL 12 MCG/HR Transdermal Patch ONE (18:30)
[2017-10-07] MEDS: Acetaminophen/HYDROcodone 325-5 MG Tab PO PRN (20:00)
[2017-10-07] MEDS ORDERED: fentaNYL 25 MCG/HR Transdermal Patch TRDERM SCH (20:00)
[2017-10-07] MEDS ORDERED: fentaNYL 12 MCG/HR Transdermal Patch TRDERM SCH (20:00)
[2017-10-08] MEDS: Piperacillin/Tazobactam 4.5 GM in Sodium Chloride 0.9% 50 ML IV SCH ×2 (01:53→08:03)
[2017-10-08] MEDS: LORazepam 0.5 MG Tab PO PRN (04:00)
[2017-10-08] MEDS: Acetaminophen/HYDROcodone 325-5 MG Tab PO PRN ×2 (04:00→08:06)
[2017-10-08] MEDS: Clindamycin Phosphate 600 MG in Dextrose 5% in Water 50 ML IV SCH ×2 (04:00)
[2017-10-08 04:03] VITALS: BP 121/56
[2017-10-08] MEDS: Dextrose 5 %-0.2 % NaCl 1,000 ML IV SCH (06:06)
[2017-10-08] MEDS: LORazepam 2 MG/ML MDV SUBCUT PRN (08:04)
[2017-10-08] MEDS: Furosemide 40 MG/4 ML VIAL IVPUSH SCH (08:07)
[2017-10-08] MEDS: Non-Formulary Medication 1 Each (Metronidazole [Metronidazole 0.75% Cream] 1 APPLIC) TOP SCH (08:07)
[2017-10-08] MEDS: Citalopram 20 MG Tab PO SCH (08:07)
[2017-10-08] MEDS ORDERED: QUEtiapine Fumarate 200 MG TABLET PO ONE (08:10)
[2017-10-08] MEDS: Acetaminophen 325 MG Tab PO SCH (08:13)
[2017-10-08] MEDS ORDERED: Scopolamine 1.5 MG Transdermal Patch TOP SCH (12:00)
--- NOTE | 2017-10-08 17:18 | PCM.DCSUM1 ---
Discharge Summary - Hospital Course Brief History: This is a 86yo M here for recent concern for shortness of breath. His CXR showed opacification of the whole right lung. He was diuresed and a repeat CXR showed almost complete resolution of the opacification and resolution of his shortness of breath. - Discharge Data Discharge Date: 10/08/17 Discharge Disposition: DC/Tfer to Other 70 Condition: Fair - Discharge Diagnosis/Problem(s) (1) Pneumonia SNOMED Code(s): 616613098 ICD Code: J18.9 - PNEUMONIA, UNSPECIFIED ORGANISM Status: Suspected Priority: High Qualifiers: Pneumonia type: aspiration pneumonia Aspiration pneumonia type: unspecified Laterality: right Lung location: unspecified part of lung Qualified Code(s): J69.0 - Pneumonitis due to inhalation of food and vomit (2) Comfort measures only status SNOMED Code(s): 26392354492162 ICD Code: Z51.5 - ENCOUNTER FOR PALLIATIVE CARE Status: Chronic Priority : High (3) Dementia associated with other underlying disease ICD Code: F03.91 - UNSPECIFIED DEMENTIA WITH BEHAVIORAL DISTURBANCE Status: Chronic Priority: High Qualifiers: Dementia behavioral disturbance: with behavioral disturbance Qualified Code (s): F02.81 - Dementia in other diseases classified elsewhere with behavioral disturbance (4) Diabetes mellitus SNOMED Code(s): 90563411 ICD Code: E11.9 - TYPE 2 DIABETES MELLITUS WITHOUT COMPLICATIONS Status: Chronic Priority: Medium Qualifiers: Diabetes mellitus type: type 2 Diabetes mellitus complication status: with hyperglycemia Diabetes mellitus skilled nursing insulin use: without roller shop supervisor use Qualified Code(s): E11.65 - Type 2 diabetes mellitus with hyperglycemia (5) H/O subdural hemorrhage SNOMED Code(s): 684235135 ICD Code: Z86.79 - PERSONAL HISTORY OF OTHER DISEASES OF THE CIRCULATORY SYSTEM Status: Chronic Priority: Medium (6) Neurogenic bladder SNOMED Code(s): 646993876 ICD Code: N31.9 - NEUROMUSCULAR DYSFUNCTION OF BLADDER, UNSPECIFIED Status : Chronic (7) Palliative care patient SNOMED Code(s): 820294525 ICD Code: Z51.5 - ENCOUNTER FOR PALLIATIVE CARE Status: Chronic Priority : High (8) Paranoid schizophrenia, chronic condition SNOMED Code(s): 65436229 ICD Code: F20.0 - PARANOID SCHIZOPHRENIA Status: Chronic Priority: High (9) Incontinence overflow, urine SNOMED Code(s): 280212464 ICD Code: N39.490 - OVERFLOW INCONTINENCE Status: Chronic Priority: Low (10) Hypernatremia SNOMED Code(s): 93965992 ICD Code: E87.0 - HYPEROSMOLALITY AND HYPERNATREMIA Status: Acute Priority: High - Patient Instructions Diet: Usual Diet as Tolerated Activity: As Tolerated Driving: Do Not Drive - Discharge Plan Home Medications: Home Meds Acetaminophen [Tylenol] 650 mg PO BID 04/10/17 [History] Citalopram Hydrobromide [Citalopram HBr] 20 mg PO BEDTIME 04/10/17 [History] Erythromycin Base [Erythromycin] 1 applic TOP BEDTIME 04/10/17 [History] QUEtiapine [SEROquel] 450 mg PO BEDTIME 04/10/17 [History] metroNIDAZOLE [metroNIDAZOLE 0.75% Cream] 1 applic TOP DAILY 04/10/17 [History] QUEtiapine Fumarate [Seroquel] 200 mg PO ACBREAKFAST 04/13/17 [History] QUEtiapine [SEROquel XR] 200 tab PO ACLUNCH 04/13/17 [History] Acetaminophen [Tylenol] 650 mg PO BID 30 Days tablet 07/19/17 [Rx] Acetaminophen/HYDROcodone [[place] 325-5 MG] 1 tab PO Q4H PRN 30 Days #180 tab 08/23 [Rx] Bisacodyl [Dulcolax] 10 mg RC DAILY PRN 30 Days #30 supp.rect 07/19/17 [Rx] Docusate Sodium/Sennosides [Senna Plus] 1 each PO BID 30 Days #60 tab 07/19/17 [ Rx] LORazepam [Ativan] 0.5 mg PO Q8HR PRN 30 Days #90 tablet 07/19/17 [Rx] LORazepam [Ativan] 1 mg SUBCUT Q4HR PRN 30 Days #180 mdv 07/19/17 [Rx] Scopolamine [Transderm-Scop] 1 patch TD Q3D PRN 30 Days #10 patch 07/19/17 [Rx] fentaNYL [Duragesic] 25 mcg TRDERM Q72H 30 Days #10 patch 07/19/17 [Rx] Docusate Sodium/Sennosides [Senna Plus] 1 tab PO BID 07/20/17 [History] Morphine 2 mg IV Q4H #20 syringe 07/21/17 [Rx] - Discharge Summary/Plan Comment Discharge Summary/Plan Comment: Patient to be discharged back to respite care. No changes to respite care meds. - Patient Data Vitals - Most Recent: Last Vital Signs Temp 36.4 C 10/08/17 04:00 Pulse 73 10/08/17 04:00 Resp 20 10/08/17 04:00 BP 121/56 L 10/08/17 04:00 Pulse Ox 97 10/08/17 04:00 I&O - Last 24 hours: Intake & Output 10/08/17 10/08/17 10/08/17 06:59 14:59 22:59 Intake Total 2785 Output Total 175 Balance 2610 Lab Results - Last 24 hrs: Laboratory Results - last 24 hr 10/08/17 10/08/17 Range/Units 08:00 08:00 WBC 7.2 D (4.0-11.0) K/uL RBC 4.33 L (4.50-6.50) M/uL Hgb 13.2 (13.0-18.0) g/dL Hct 40.3 (40.0-54.0) % MCV 93 (76-96) fL MCH 30.5 (27.0-32.0) pg MCHC 32.8 (31.0-35.0) g/dL RDW 13.7 (11.0-16.0) % Plt Count 211 (150-400) K/uL MPV 9.6 (6.0-10.0) fL Neut % (Auto) 60.7 (45.0-70.0) % Lymph % (Auto) 21.1 (20.0-40.0) % Sherman % (Auto) 15.3 H (3.0-10.0) % Eos % (Auto) 2.6 (1.0-5.0) % Baso % (Auto) 0.3 (0.0-0.5) % Neut # (Auto) 4.35 (2.00-7.50) K/uL Lymph # (Auto) 1.51 (1.50-4.00) K/uL [place] # (Auto) 1.10 H (0.20-0.80) K/uL Eos # (Auto) 0.19 (0.04-0.40) K/uL Baso # (Auto) 0.02 (0.02-0.10) K/uL Sodium 146 H (136-145) mmol/L Potassium 3.6 (3.5-5.1) mmol/L Chloride 106 (98-107) mmol/L Carbon Dioxide 29.8 (21.0-32.0) mmol/L Anion Gap 13.8 (5.0-15.0) mmol/L BUN 19 D (8-26) mg/dL Creatinine 1.12 (0.70-1.30) mg/dL Est Cr Clr Drug Dosing TNP Estimated GFR (MDRD) > 60 (>60) MLS/MIN BUN/Creatinine Ratio 17.0 (6-25) Glucose 171 H (74-100) mg/dL Calcium 8.5 (8.5-10.1) mg/dL BRIAN Results - Last 24 hrs: Microbiology 10/06/17 12:10 Aerobic Blood Culture - Preliminary Blood - Arm, Right NO GROWTH AFTER 2 DAYS Anaerobic Blood Culture - Preliminary NO GROWTH AFTER 2 DAYS 10/06/17 12:05 Aerobic Blood Culture - Preliminary Blood - Arm, Left NO GROWTH AFTER 2 DAYS Anaerobic Blood Culture - Preliminary NO GROWTH AFTER 2 DAYS Med Orders - Current: Current Medications Discontinued Medications Acetaminophen (Tylenol) 650 mg PO BID [facility] Last Admin: 10/08/17 08:13 Dose: Not Given Hydrocodone Bitart/Acetaminophen ([place] 325-5 Mg) 1 tab PO Q4H PRN PRN Reason: Pain Last Admin: 10/08/17 08:06 Dose: 1 tab Bisacodyl (Dulcolax) 10 mg RECTAL DAILY PRN PRN Reason: Constipation Citalopram Hydrobromide (Celexa) 20 mg PO DAILY [facility] Last Admin: 10/08/17 08:07 Dose: 20 mg Clindamycin Phosphate (Cleocin) Confirm Administered Dose 600 mg .ROUTE .STK- MED ONE Stop: 10/06/17 13:08 Last Admin: 10/06/17 14:32 Dose: Not Given Fentanyl (Duragesic) 25 mcg TRDERM Q72H [facility] Last Admin: 10/08/17 00:14 Dose: Not Given Fentanyl (Duragesic) 12 mcg TRDERM Q72H [facility] Last Admin: 10/08/17 00:14 Dose: Not Given Fentanyl (Duragesic) Confirm Administered Dose 25 mcg .ROUTE .STK-MED ONE Stop: 10/07/17 18:30 Last Admin: 10/07/17 19:00 Dose: 25 mcg Fentanyl (Duragesic) Confirm Administered Dose 12 mcg .ROUTE .STK-MED ONE Stop: 10/07/17 18:31 Last Admin: 10/07/17 19:00 Dose: 12 mcg Furosemide (Lasix) 40 mg IVPUSH DAILY [facility] Last Admin: 10/08/17 08:07 Dose: 40 mg Clindamycin Phosphate 600 mg/ (Dextrose/Water) 54 mls @ 150 mls/hr IV Q8H [facility] Stop: 10/10/17 23:59 Last Admin: 10/08/17 04:00 Dose: 150 mls/hr Lactated Ringer's (Ringers, Lactated) 1,000 mls @ 125 mls/hr IV ASDIRECTED [facility] Last Admin: 10/07/17 08:54 Dose: 125 mls/hr Levofloxacin/Dextrose 750 mg/ (Premix) 150 mls @ 150 mls/hr IV Q24H [facility] Stop: 10/10/17 12:59 Last Admin: 10/07/17 13:24 Dose: 75 mls/hr Piperacillin Sod/Tazobactam (Sod 4.5 gm/ Sodium Chloride) 50 mls @ 100 mls/hr IV Q6H [facility] Stop: 10/10/17 23:59 Last Admin: 10/08/17 08:03 Dose: 100 mls/hr Dextrose/Sodium Chloride (Dextrose 5%-1/4 Ns) 1,000 mls [facility] Last Admin: 10/08/17 06:06 Dose: 125 mls/hr Lorazepam (Ativan) 0.5 mg PO Q8HR PRN PRN Reason: Anxiety Last Admin: 10/08/17 04:00 Dose: 0.5 mg Lorazepam (Ativan) 1 mg SUBCUT Q4HR PRN PRN Reason: Anxiety Last Admin: 10/08/17 08:04 Dose: 1 mg Miscellaneous Information (Remove Patch) 1 ea TRDERM Q72H [facility] Last Admin: 10/07/17 19:00 Dose: 1 ea Miscellaneous Information (Remove Patch) 1 ea TRDERM Q72H [facility] Non-Formulary Medication (Metronidazole [Metronidazole 0.75% Cream]) 1 applic TOP DAILY [facility] Last Admin: 10/08/17 08:07 Dose: Not Given Quetiapine Fumarate (Seroquel) 400 mg PO TID [facility] Last Admin: 10/07/17 10:26 Dose: Not Given Quetiapine Fumarate (Seroquel) Confirm Administered Dose 50 mg .ROUTE .STK-MED ONE Stop: 10/06/17 19:27 Last Admin: 10/06/17 21:11 Dose: Not Given Quetiapine Fumarate (Quetiapine Fumarate) Confirm Administered Dose 400 mg PO .STK-MED ONE Stop: 10/06/17 19:28 Last Admin: 10/06/17 21:11 Dose: Not Given Quetiapine Fumarate (Seroquel) 50 mg PO TID [facility] Last Admin: 10/07/17 10:27 Dose: Not Given Quetiapine Fumarate (Seroquel) 200 mg PO BID@0800,1200 [facility] Last Admin: 10/08/17 08:12 Dose: 200 mg Quetiapine Fumarate (Seroquel) 50 mg PO BID@0800,1200 [facility] Last Admin: 10/08/17 08:06 Dose: 50 mg Quetiapine Fumarate (Seroquel) 50 mg PO BEDTIME [facility] Last Admin: 10/07/17 20:00 Dose: 50 mg Quetiapine Fumarate (Seroquel) 400 mg PO BEDTIME [facility] Last Admin: 10/07/17 20:00 Dose: 400 mg Quetiapine Fumarate (Quetiapine Fumarate) Confirm Administered Dose 200 mg PO .STK-MED ONE Stop: 10/07/17 13:10 Last Admin: 10/07/17 13:35 Dose: Not Given Quetiapine Fumarate (Quetiapine Fumarate) Confirm Administered Dose 400 mg PO .STK-MED ONE Stop: 10/07/17 18:31 Last Admin: 10/07/17 21:58 Dose: Not Given Quetiapine Fumarate (Seroquel) Confirm Administered Dose 50 mg .ROUTE .STK-MED ONE Stop: 10/07/17 19:11 Last Admin: 10/07/17 21:59 Dose: Not Given Quetiapine Fumarate (Quetiapine Fumarate) Confirm Administered Dose 400 mg PO .STK-MED ONE Stop: 10/07/17 19:11 Last Admin: 10/07/17 21:59 Dose: Not Given Quetiapine Fumarate (Quetiapine Fumarate) Confirm Administered Dose 200 mg PO .STK-MED ONE Stop: 10/08/17 08:11 Last Admin: 10/08/17 08:25 Dose: Not Given Scopolamine (Transderm-Scop) 1.5 mg TOP Q72H [facility] Senna/Docusate Sodium (Senna Plus) 1 tab PO BID [facility] Last Admin: 10/08/17 08:07 Dose: Not Given Senna/Docusate Sodium (Senna Plus) 1 tab PO BID@0800,1700 [facility] Last Admin: 10/08/17 08:07 Dose: Not Given Sodium Chloride (Saline Flush) 10 ml FLUSH ASDIRECTED PRN PRN Reason: Keep Vein Open *Q Meaningful Use (DIS) - VTE *Q VTE Criteria *Q: - Stroke *Q Stroke Criteria *Q: - AMI *Q AMI Criteria *Q:
== END 2017-10-08 10:45 | disposition other institution (70) | DRG 178 ==
LOC: LB.DI 08:00 → UNDOADMIN 11:45 → LB.MS 11:45
PROVIDERS: ADMIT Family Medicine; ATTEND Family Medicine
DX: J69.0 Pneumonitis due to inhalation of food and vomit (principal); R06.02 Shortness of breath; F02.81 Dementia in other diseases classified elsewhere, unspecified severity, with behavioral disturbance; F20.0 Paranoid schizophrenia; E87.0 Hyperosmolality and hypernatremia; Z86.79 Personal history of other diseases of the circulatory system; E11.65 Type 2 diabetes mellitus with hyperglycemia; N31.9 Neuromuscular dysfunction of bladder, unspecified; F32.9 Major depressive disorder, single episode, unspecified; K59.09 Other constipation; H91.90 Unspecified hearing loss, unspecified ear; Z66 Do not resuscitate; Z51.5 Encounter for palliative care; G20 Parkinson's disease; G30.9 Alzheimer's disease, unspecified; N39.490 Overflow incontinence
CPT/HCPCS: 36415; 71045; 80048; 80053; 83605; 85025; 87040; 87070; 87077; 87186; 87205; 87804; A9270-GY; J1940; J1956; J2060; J2543; J7050; J7060; J7120; S0077

== ENCOUNTER 2017-10-08 10:22 | Inpatient (IN) | payer SELFPAY ==
[2017-10-08] MEDS: fentaNYL 25 MCG/HR Transdermal Patch TRDERM SCH (12:12)
[2017-10-08] MEDS: fentaNYL 12 MCG/HR Transdermal Patch TRDERM SCH (12:13)
[2017-10-08] MEDS ORDERED: Loperamide 2 MG Cap PO PRN (14:29)
--- NOTE | 2017-10-08 17:13 | PCM.HP ---
H&P History of Present Illness - General Date of Service: 10/08/17 Admit Problem/Dx: Admission Diagnosis/Problem Admission Diagnosis/Problem Comfort measures only status Source of Information: Old Records, RN Notes Reviewed History Limitations: Reports: Other (Deaf, paranoid schizophrenia with varying emotions and agitation) - History of Present Illness Initial Comments - Free Text/Narative: This is a 86yo M who was recently admitted for pulmonary vascular flash edema and possible pneumonia. Patient symptoms treated and patient is returning to respite care/comfort care. There are no current family, patient or nursing concerns at this time. - Related Data Allergies/Adverse Reactions: Allergies Allergy/AdvReac Type Severity Reaction Status Date / Time hydromorphone [From Dilaudid] AdvReac Wheezing Verified 10/13/17 07:36 Home Medications: Home Meds Acetaminophen [Tylenol] 650 mg PO BID 04/10/17 [History] Citalopram Hydrobromide [Citalopram HBr] 20 mg PO BEDTIME 04/10/17 [History] Erythromycin Base [Erythromycin] 1 applic TOP BEDTIME 04/10/17 [History] QUEtiapine [SEROquel] 450 mg PO BEDTIME 04/10/17 [History] metroNIDAZOLE [metroNIDAZOLE 0.75% Cream] 1 applic TOP DAILY 04/10/17 [History] QUEtiapine Fumarate [Seroquel] 200 mg PO ACBREAKFAST 04/13/17 [History] QUEtiapine [SEROquel XR] 200 tab PO ACLUNCH 04/13/17 [History] Acetaminophen [Tylenol] 650 mg PO BID 30 Days tablet 07/19/17 [Rx] Acetaminophen/HYDROcodone [[place] 325-5 MG] 1 tab PO Q4H PRN 30 Days #180 tab 08/23 [Rx] Bisacodyl [Dulcolax] 10 mg RC DAILY PRN 30 Days #30 supp.rect 07/19/17 [Rx] Docusate Sodium/Sennosides [Senna Plus] 1 each PO BID 30 Days #60 tab 07/19/17 [ Rx] LORazepam [Ativan] 0.5 mg PO Q8HR PRN 30 Days #90 tablet 07/19/17 [Rx] LORazepam [Ativan] 1 mg SUBCUT Q4HR PRN 30 Days #180 mdv 11/12/17 [Rx] Scopolamine [Transderm-Scop] 1 patch TD Q3D PRN 30 Days #10 patch 07/19/17 [Rx] fentaNYL [Duragesic] 25 mcg TRDERM Q72H 30 Days #10 patch 07/19/17 [Rx] Docusate Sodium/Sennosides [Senna Plus] 1 tab PO BID 07/20/17 [History] Morphine 2 mg IV Q4H #20 syringe 07/21/17 [Rx] Past Medical History HEENT History: Reports: Hard of Hearing Other HEENT History: [place] Cardiovascular History: Reports: Hypertension Gastrointestinal History: Reports: Chronic Constipation Genitourinary History: Reports: Neurogenic Bladder, Retention, Urinary Other Genitourinary History: FC to BSD with cloudy tea colored urine in tubing Musculoskeletal History: Reports: Other (See Below) Other Musculoskeletal History: Generalized weakness Neurological History: Reports: Alzheimers Disease Psychiatric History: Reports: Alzheimers Disease, Dementia, Depression, Schizophrenia Endocrine/Metabolic History: Reports: Diabetes, Type II Dermatologic History: Reports: Psoriasis, Seborrheic Dermatitis, Other (See Below) Other Dermatologic History: Toenail Fungus. Rosacia - Past Surgical History HEENT Surgical History: Reports: None Cardiovascular Surgical History: Reports: None GI Surgical History: Reports: None Male Surgical History: Reports: None Endocrine Surgical History: Reports: None Neurological Surgical History: Reports: None Musculoskeletal Surgical History: Reports: Other (See Below) Other Musculoskeletal Surgeries/Procedures:: chronic back pain Dermatological Surgical History: Reports: None Social & Family History - Family History Family Medical History: Noncontributory - Tobacco Use Smoking Status *Q: Unknown Ever Smoked Second Hand Smoke Exposure: No - Caffeine Use Caffeine Use: Reports: Coffee - Recreational Drug Use Recreational Drug Use: No - Living Situation & Occupation Living situation: Reports: Extended Care Facility Occupation: Disabled H&P Review of Systems - Review of Systems: Review Of Systems: ROS reveals no pertinent complaints other than HPI. Exam - Exam Exam: See Below - Vital Signs Vital Signs: Last Vital Signs Temp 36.7 C 10/08/17 10:51 Pulse 80 10/08/17 10:51 Resp 16 10/08/17 10:51 BP 144/72 H 10/08/17 10:51 Pulse Ox 94 L 10/08/17 10:51 - Exam Quality Assessment: Other (Patient does not respond to command but does respond to stimuli, will eat and appears dissociated from daily activities) General: Alert HEENT: PERRLA, EOMI Neck: Supple, Trachea Midline Lungs: Normal Respiratory Effort, Decreased Breath Sounds Cardiovascular: Regular Rate, Regular Rhythm GI/Abdominal Exam: Normal Bowel Sounds Extremities: Normal Inspection Peripheral Pulses: 2+: Dorsalis Pedis (L), Dorsalis Pedis (R) Skin: Warm, Dry, Intact *Q Meaningful Use (ADM) - VTE *Q VTE Criteria *Q: - Stroke *Q Stroke Criteria *Q: - AMI *Q AMI Criteria *Q: - Problem List (1) Comfort measures only status SNOMED Code(s): 84242502827647 ICD Code: Z51.5 - ENCOUNTER FOR PALLIATIVE CARE Status: Chronic Priority : High Current Visit: Yes (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 ICD Code: F03.91 - UNSPECIFIED DEMENTIA WITH BEHAVIORAL DISTURBANCE Status: Chronic Priority: High Current Visit: Yes Qualifiers: Dementia behavioral disturbance: with behavioral disturbance Qualified Code (s): F02.81 - Dementia in other diseases classified elsewhere with behavioral disturbance (3) Diabetes mellitus SNOMED Code(s): 44402129 ICD Code: E11.9 - TYPE 2 DIABETES MELLITUS WITHOUT COMPLICATIONS Status: Chronic Priority: Medium Current Visit: Yes Qualifiers: Diabetes mellitus type: type 2 Diabetes mellitus complication status: with hyperglycemia Diabetes mellitus intermediate card tender insulin use: without intermediate card tender use Qualified Code(s): E11.65 - Type 2 diabetes mellitus with hyperglycemia (4) H/O subdural hemorrhage SNOMED Code(s): 119850476 ICD Code: Z86.79 - PERSONAL HISTORY OF OTHER DISEASES OF THE CIRCULATORY SYSTEM Status: Resolved Priority: Medium Current Visit: No (5) Incontinence overflow, urine SNOMED Code(s): 570383758 ICD Code: N39.490 - OVERFLOW INCONTINENCE Status: Chronic Priority: Medium Current Visit: Yes (6) Neurogenic bladder SNOMED Code(s): 697721910 ICD Code: N31.9 - NEUROMUSCULAR DYSFUNCTION OF BLADDER, UNSPECIFIED Status : Chronic Priority: Medium Current Visit: Yes (7) Palliative care patient SNOMED Code(s): 161669835 ICD Code: Z51.5 - ENCOUNTER FOR PALLIATIVE CARE Status: Chronic Priority : High Current Visit: Yes (8) Paranoid schizophrenia, chronic condition SNOMED Code(s): 38284714 ICD Code: F20.0 - PARANOID SCHIZOPHRENIA Status: Chronic Priority: High Current Visit: Yes Problem List Initiated/Reviewed/Updated: Yes Orders Last 24hrs: Active Orders 24 hr Category Date Time Status Patient Status [ADT] Routine ADT 10/08/17 15:03 Active Acetaminophen/HYDROcodone [[place] 325-5 MG] Med 10/08/17 14:26 Active 1 tab PO Q4H PRN Bisacodyl [Dulcolax] Med 10/08/17 14:27 Active 10 mg RECTAL DAILY PRN Citalopram [Celexa] Med 10/09/17 08:00 Active 20 mg PO DAILY Docusate Sodium/Sennosides [Senna Plus] Med 10/08/17 17:00 Active 1 tab PO BID@0800,1700 LORazepam [Ativan] Med 10/08/17 14:30 Active 0.5 mg PO Q8H PRN Loperamide [Imodium] Med 10/08/17 14:29 Active 2 mg PO Q4H PRN Morphine Med 10/08/17 14:31 Active 2 mg SUBCUT Q4H PRN Non-Formulary Medication [NF Drug] Med 10/08/17 20:00 Active 1 each PO BEDTIME QUEtiapine [SEROquel] Med 10/09/17 08:00 Active 200 mg PO DAILY@0800,1200 QUEtiapine [SEROquel] Med 10/08/17 20:00 Active 50 mg PO BEDTIME QUEtiapine [SEROquel] Med 10/09/17 08:00 Active 50 mg PO DAILY@0800,1200 Remove Patch Med 10/08/17 08:00 Active 1 ea TRDERM Q72H Scopolamine [Transderm-Scop] Med 10/08/17 14:39 Active 1.5 mg TOP Q72H PRN fentaNYL [Duragesic] Med 10/08/17 08:00 Active 12 mcg TRDERM Q72H fentaNYL [Duragesic] Med 10/08/17 08:00 Active 25 mcg TRDERM Q72H Medication Orders Hydrocodone Bitart/Acetaminophen ([place] 325-5 Mg) 1 tab PO Q4H PRN PRN Reason: MODERATE PAIN Bisacodyl (Dulcolax) 10 mg RECTAL DAILY PRN PRN Reason: CONSTIPATION Citalopram Hydrobromide (Celexa) 20 mg PO DAILY [facility] Fentanyl (Duragesic) 25 mcg TRDERM Q72H [facility] Last Admin: 10/08/17 12:12 Dose: 25 mcg Fentanyl (Duragesic) 12 mcg TRDERM Q72H [facility] Last Admin: 10/08/17 12:13 Dose: 12 mcg Loperamide HCl (Imodium) 2 mg PO Q4H PRN PRN Reason: DIARRHEA Lorazepam (Ativan) 0.5 mg PO Q8H PRN PRN Reason: ANXIETY Miscellaneous Information (Remove Patch) 1 ea TRDERM Q72H [facility] Last Admin: 10/08/17 12:13 Dose: 1 ea Morphine Sulfate (Morphine) 2 mg SUBCUT Q4H PRN PRN Reason: PAIN Seroquel 400mg (Tablets) 1 each PO BEDTIME [facility] Quetiapine Fumarate (Seroquel) 50 mg PO BEDTIME [facility] Quetiapine Fumarate (Seroquel) 200 mg PO DAILY@0800,1200 [facility] Quetiapine Fumarate (Seroquel) 50 mg PO DAILY@0800,1200 [facility] Scopolamine (Transderm-Scop) 1.5 mg TOP Q72H PRN PRN Reason: SECRETIONS Senna/Docusate Sodium (Senna Plus) 1 tab PO BID@0800,1700 [facility] Assessment/Plan Comment:: No changes to care and management. We will continue supportive care and management.
[2017-10-08] MEDS: Acetaminophen/HYDROcodone 325-5 MG Tab PO PRN ×2 (18:22→23:32)
[2017-10-08] MEDS: SEROQUEL 400 MG PO SCH (19:53)
[2017-10-08] MEDS ORDERED: Erythromycin Base 0.5% Ophth Oint 3.5 GM Tube EYEBOTH SCH (20:00)
[2017-10-09] MEDS: LORazepam 0.5 MG Tab PO PRN (02:26)
[2017-10-09] MEDS: Acetaminophen/HYDROcodone 325-5 MG Tab PO PRN ×2 (03:34→12:21)
[2017-10-09] MEDS ORDERED: METRONIDAZOLE 0.75% TOP SCH (08:00)
[2017-10-09] MEDS: Citalopram 20 MG Tab PO SCH (08:50)
[2017-10-09] MEDS: SEROQUEL 400 MG PO SCH (19:09)
[2017-10-10] MEDS: Citalopram 20 MG Tab PO SCH (09:06)
[2017-10-10] MEDS ORDERED: LORazepam 2 MG/ML SDV ONE (19:53)
[2017-10-10] MEDS: fentaNYL 25 MCG/HR Transdermal Patch TRDERM SCH (20:08)
[2017-10-10] MEDS: fentaNYL 12 MCG/HR Transdermal Patch TRDERM SCH (20:09)
[2017-10-10] MEDS: LORazepam 0.5 MG Tab PO PRN (20:58)
[2017-10-10] MEDS: SEROQUEL 400 MG PO SCH (20:59)
[2017-10-10] MEDS: Acetaminophen/HYDROcodone 325-5 MG Tab PO PRN (21:00)
[2017-10-11] MEDS: Citalopram 20 MG Tab PO SCH (08:11)
[2017-10-11] MEDS: fentaNYL 25 MCG/HR Transdermal Patch TRDERM SCH (08:13)
[2017-10-11] MEDS: fentaNYL 12 MCG/HR Transdermal Patch TRDERM SCH (08:13)
[2017-10-11] MEDS: SEROQUEL 400 MG PO SCH (20:33)
[2017-10-11] MEDS: Acetaminophen/HYDROcodone 325-5 MG Tab PO PRN (20:34)
[2017-10-11] MEDS: LORazepam 0.5 MG Tab PO PRN (20:34)
[2017-10-12] MEDS: Acetaminophen/HYDROcodone 325-5 MG Tab PO PRN (10:50)
[2017-10-12] MEDS: Citalopram 20 MG Tab PO SCH (10:51)
--- NOTE | 2017-10-12 12:23 | PCM.PN ---
- General Info Date of Service: 10/12/17 Subjective Update: Patient tolerating diet. No concerns per nursing. Patient appears comfortable and eating well. Functional Status: Reports: Tolerating Diet - Review of Systems General: Reports: Weakness HEENT: Reports: No Symptoms Pulmonary: Reports: No Symptoms Cardiovascular: Reports: No Symptoms Gastrointestinal: Reports: No Symptoms Genitourinary: Reports: Incontinence Musculoskeletal: Reports: No Symptoms Skin: Reports: No Symptoms Psychiatric: Reports: Confusion, Agitation, Hallucinations - Patient Data Vitals - Most Recent: Last Vital Signs Temp 36.7 C 10/08/17 10:51 Pulse 80 10/08/17 10:51 Resp 16 10/08/17 10:51 BP 144/72 H 10/08/17 10:51 Pulse Ox 94 L 10/08/17 10:51 Med Orders - Current: Current Medications Hydrocodone Bitart/Acetaminophen ([place] 325-5 Mg) 1 tab PO Q4H PRN PRN Reason: MODERATE PAIN Last Admin: 10/12/17 10:50 Dose: 1 tab Bisacodyl (Dulcolax) 10 mg RECTAL DAILY PRN PRN Reason: CONSTIPATION Citalopram Hydrobromide (Celexa) 20 mg PO DAILY [facility] Last Admin: 10/12/17 10:51 Dose: 20 mg Fentanyl (Duragesic) 25 mcg TRDERM Q72H [facility] Last Admin: 10/11/17 08:13 Dose: 25 mcg Fentanyl (Duragesic) 12 mcg TRDERM Q72H [facility] Last Admin: 10/11/17 08:13 Dose: 12 mcg Loperamide HCl (Imodium) 2 mg PO Q4H PRN PRN Reason: DIARRHEA Lorazepam (Ativan) 0.5 mg PO Q8H PRN PRN Reason: ANXIETY Last Admin: 10/11/17 20:34 Dose: 0.5 mg Miscellaneous Information (Remove Patch) 1 ea TRDERM Q72H [facility] Last Admin: 10/11/17 08:12 Dose: 1 ea Morphine Sulfate (Morphine) 2 mg SUBCUT Q4H PRN PRN Reason: PAIN Seroquel 400mg (Tablets) 1 each PO BEDTIME [facility] Last Admin: 10/11/17 20:33 Dose: 1 each Quetiapine Fumarate (Seroquel) 50 mg PO BEDTIME [facility] Last Admin: 10/11/17 20:33 Dose: 50 mg Quetiapine Fumarate (Seroquel) 200 mg PO DAILY@0800,1200 [facility] Last Admin: 10/12/17 10:50 Dose: 200 mg Quetiapine Fumarate (Seroquel) 50 mg PO DAILY@0800,1200 [facility] Last Admin: 10/12/17 10:50 Dose: 50 mg Scopolamine (Transderm-Scop) 1.5 mg TOP Q72H PRN PRN Reason: SECRETIONS Senna/Docusate Sodium (Senna Plus) 1 tab PO BID@0800,1700 [facility] Last Admin: 10/12/17 11:02 Dose: 1 tab Discontinued Medications Lorazepam (Ativan) Confirm Administered Dose 2 mg .ROUTE .STK-MED ONE Stop: 10/10/17 19:54 Last Admin: 10/10/17 20:02 Dose: 2 mg - Exam General: Alert HEENT: Pupils Equal, Pupils Reactive, EOMI Neck: Supple Lungs: Clear to Auscultation, Normal Respiratory Effort Cardiovascular: Regular Rate, Regular Rhythm GI/Abdominal Exam: Normal Bowel Sounds Extremities: Normal Inspection Peripheral Pulses: 2+: Dorsalis Pedis (L), Dorsalis Pedis (R) Skin: Warm, Dry, Intact - Problem List & Annotations (1) Comfort measures only status SNOMED Code(s): 12925623976526 Code(s): Z51.5 - ENCOUNTER FOR PALLIATIVE CARE Status: Chronic Priority: High Current Visit: Yes (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 Code(s): F03.91 - UNSPECIFIED DEMENTIA WITH BEHAVIORAL DISTURBANCE Status: Chronic Priority: High Current Visit: Yes Qualifiers: Dementia behavioral disturbance: with behavioral disturbance Qualified Code (s): F02.81 - Dementia in other diseases classified elsewhere with behavioral disturbance (3) Diabetes mellitus SNOMED Code(s): 20680019 Code(s): E11.9 - TYPE 2 DIABETES MELLITUS WITHOUT COMPLICATIONS Status: Chronic Priority: Medium Current Visit: Yes Qualifiers: Diabetes mellitus type: type 2 Diabetes mellitus complication status: with hyperglycemia Diabetes mellitus senior care insulin use: without termite treater helper use Qualified Code(s): E11.65 - Type 2 diabetes mellitus with hyperglycemia (4) Incontinence overflow, urine SNOMED Code(s): 359886104 Code(s): N39.490 - OVERFLOW INCONTINENCE Status: Chronic Priority: Medium Current Visit: Yes (5) Neurogenic bladder SNOMED Code(s): 632166780 Code(s): N31.9 - NEUROMUSCULAR DYSFUNCTION OF BLADDER, UNSPECIFIED Status: Chronic Priority: Medium Current Visit: Yes (6) Palliative care patient SNOMED Code(s): 161259117 Code(s): Z51.5 - ENCOUNTER FOR PALLIATIVE CARE Status: Chronic Priority: High Current Visit: Yes (7) Paranoid schizophrenia, chronic condition SNOMED Code(s): 71806137 Code(s): F20.0 - PARANOID SCHIZOPHRENIA Status: Chronic Priority: High Current Visit: Yes - Problem List Review Problem List Initiated/Reviewed/Updated: Yes - Plan Plan:: Patient to continue current diet and management. No changes to supportive care.
[2017-10-12] MEDS ORDERED: LORazepam 2 MG/ML SDV SUBCUT PRN (15:21)
[2017-10-12] MEDS ORDERED: Bisacodyl 10 MG Supp RECTAL PRN (15:21)
[2017-10-12] MEDS ORDERED: Acetaminophen/HYDROcodone 325-5 MG Tab PO PRN (15:21)
[2017-10-12] MEDS ORDERED: LORazepam 0.5 MG Tab PO PRN (15:21)
[2017-10-12] MEDS ORDERED: Scopolamine 1.5 MG Transdermal Patch TOP PRN (15:24)
[2017-10-12] MEDS ORDERED: Acetaminophen 325 MG Tab PO SCH (20:00)
[2017-10-12] MEDS ORDERED: Non-Formulary Medication 1 Each (Citalopram Hydrobromide [Citalopram Hbr] 20 MG) PO SCH (20:00)
[2017-10-12] MEDS: SEROQUEL 400 MG PO SCH (20:12)
[2017-10-12] MEDS: Acetaminophen 325 MG Tab PO SCH (20:13)
[2017-10-13] MEDS: Citalopram 20 MG Tab PO SCH (08:43)
[2017-10-13] MEDS: Acetaminophen 325 MG Tab PO SCH ×2 (08:44→20:40)
[2017-10-13] MEDS: Non-Formulary Medication 1 Each (Metronidazole [Metronidazole 0.75% Cream] 1 APPLIC) TOP SCH (08:44)
[2017-10-13] MEDS: Morphine 2 MG/ML Syringe SUBCUT PRN (13:08)
[2017-10-13] MEDS: LORazepam 0.5 MG Tab PO PRN (20:40)
[2017-10-13] MEDS: Acetaminophen/HYDROcodone 325-5 MG Tab PO PRN (20:40)
[2017-10-13] MEDS: SEROQUEL 400 MG PO SCH (20:40)
[2017-10-14] MEDS: Acetaminophen/HYDROcodone 325-5 MG Tab PO PRN ×2 (03:10→21:00)
[2017-10-14] MEDS: Citalopram 20 MG Tab PO SCH (08:03)
[2017-10-14] MEDS: Non-Formulary Medication 1 Each (Metronidazole [Metronidazole 0.75% Cream] 1 APPLIC) TOP SCH (08:04)
[2017-10-14] MEDS: Acetaminophen 325 MG Tab PO SCH ×2 (08:05→19:53)
[2017-10-14] MEDS: fentaNYL 25 MCG/HR Transdermal Patch TRDERM SCH (08:26)
[2017-10-14] MEDS: fentaNYL 12 MCG/HR Transdermal Patch TRDERM SCH (08:27)
[2017-10-14] MEDS: SEROQUEL 400 MG PO SCH (19:54)
[2017-10-14] MEDS: LORazepam 0.5 MG Tab PO PRN (20:02)
[2017-10-14] MEDS: LORazepam 2 MG/ML SDV IM PRN (22:35)
[2017-10-15] MEDS: Citalopram 20 MG Tab PO SCH (08:50)
[2017-10-15] MEDS: Non-Formulary Medication 1 Each (Metronidazole [Metronidazole 0.75% Cream] 1 APPLIC) TOP SCH (08:50)
[2017-10-15] MEDS: Acetaminophen 325 MG Tab PO SCH ×2 (08:59→19:30)
[2017-10-15] MEDS: SEROQUEL 400 MG PO SCH (19:28)
[2017-10-15] MEDS: Acetaminophen/HYDROcodone 325-5 MG Tab PO PRN (19:30)
[2017-10-16] MEDS: Non-Formulary Medication 1 Each (Metronidazole [Metronidazole 0.75% Cream] 1 APPLIC) TOP SCH (08:53)
[2017-10-16] MEDS: Citalopram 20 MG Tab PO SCH (08:54)
[2017-10-16] MEDS: Acetaminophen 325 MG Tab PO SCH ×2 (08:54→19:29)
[2017-10-16] MEDS: SEROQUEL 400 MG PO SCH (19:29)
[2017-10-16] MEDS: LORazepam 0.5 MG Tab PO PRN (19:30)
[2017-10-16] MEDS: Acetaminophen/HYDROcodone 325-5 MG Tab PO PRN (19:30)
[2017-10-17] MEDS: fentaNYL 12 MCG/HR Transdermal Patch TRDERM SCH (09:00)
[2017-10-17] MEDS: Citalopram 20 MG Tab PO SCH (09:06)
[2017-10-17] MEDS: fentaNYL 25 MCG/HR Transdermal Patch TRDERM SCH (09:06)
[2017-10-17] MEDS: Acetaminophen 325 MG Tab PO SCH ×2 (09:09→19:40)
[2017-10-17] MEDS: Non-Formulary Medication 1 Each (Metronidazole [Metronidazole 0.75% Cream] 1 APPLIC) TOP SCH (09:12)
[2017-10-17] MEDS: Acetaminophen/HYDROcodone 325-5 MG Tab PO PRN ×2 (12:37→19:40)
[2017-10-17] MEDS: SEROQUEL 400 MG PO SCH (19:40)
[2017-10-17] MEDS: LORazepam 0.5 MG Tab PO PRN (19:40)
[2017-10-18] MEDS: Non-Formulary Medication 1 Each (Metronidazole [Metronidazole 0.75% Cream] 1 APPLIC) TOP SCH (07:35)
[2017-10-18] MEDS: Citalopram 20 MG Tab PO SCH (07:35)
[2017-10-18] MEDS: Acetaminophen/HYDROcodone 325-5 MG Tab PO PRN ×4 (07:37→21:08)
[2017-10-18] MEDS: Acetaminophen 325 MG Tab PO SCH ×2 (07:37→21:07)
[2017-10-18] MEDS: SEROQUEL 400 MG PO SCH (21:06)
[2017-10-18] MEDS: LORazepam 0.5 MG Tab PO PRN (21:08)
[2017-10-19] MEDS: Non-Formulary Medication 1 Each (Metronidazole [Metronidazole 0.75% Cream] 1 APPLIC) TOP SCH (07:18)
[2017-10-19] MEDS: Citalopram 20 MG Tab PO SCH (07:18)
[2017-10-19] MEDS: Acetaminophen 325 MG Tab PO SCH (07:20)
[2017-10-19] MEDS: SEROQUEL 400 MG PO SCH (19:51)
[2017-10-19] MEDS: LORazepam 0.5 MG Tab PO PRN (19:51)
[2017-10-19] MEDS: Acetaminophen/HYDROcodone 325-5 MG Tab PO PRN (19:51)
[2017-10-19] MEDS: Acetaminophen 650 MG Tab.ER PO SCH (19:51)
[2017-10-20] MEDS: Citalopram 20 MG Tab PO SCH (09:05)
[2017-10-20] MEDS: fentaNYL 12 MCG/HR Transdermal Patch TRDERM SCH (09:05)
[2017-10-20] MEDS: fentaNYL 25 MCG/HR Transdermal Patch TRDERM SCH (09:05)
[2017-10-20] MEDS: Acetaminophen 650 MG Tab.ER PO SCH ×2 (09:05→20:09)
[2017-10-20] MEDS: Non-Formulary Medication 1 Each (Metronidazole [Metronidazole 0.75% Cream] 1 APPLIC) TOP SCH (10:35)
--- NOTE | 2017-10-20 14:20 | PCM.PN ---
- General Info Date of Service: 10/19/17 Subjective Update: Patient resting comfortably. No changes in appetite or agitation. Patient has been comfortable and no agitation during the past week. - Review of Systems General: Reports: Weakness HEENT: Reports: No Symptoms Pulmonary: Reports: No Symptoms Cardiovascular: Reports: No Symptoms Gastrointestinal: Reports: No Symptoms Genitourinary: Reports: Incontinence - Patient Data Vitals - Most Recent: Last Vital Signs Temp 36.7 C 10/08/17 10:51 Pulse 80 10/08/17 10:51 Resp 16 10/08/17 10:51 BP 144/72 H 10/08/17 10:51 Pulse Ox 94 L 10/08/17 10:51 Med Orders - Current: Current Medications Acetaminophen (Tylenol Arthritis Pain) 650 mg PO BID [facility] Last Admin: 10/20/17 09:05 Dose: 650 mg Hydrocodone Bitart/Acetaminophen ([place] 325-5 Mg) 1 tab PO Q4H PRN PRN Reason: MODERATE PAIN Last Admin: 10/19/17 19:51 Dose: 1 tab Bisacodyl (Dulcolax) 10 mg RECTAL DAILY PRN PRN Reason: CONSTIPATION Citalopram Hydrobromide (Celexa) 20 mg PO DAILY [facility] Last Admin: 10/20/17 09:05 Dose: 20 mg Fentanyl (Duragesic) 25 mcg TRDERM Q72H [facility] Last Admin: 10/20/17 09:05 Dose: 25 mcg Fentanyl (Duragesic) 12 mcg TRDERM Q72H [facility] Last Admin: 10/20/17 09:05 Dose: 12 mcg Loperamide HCl (Imodium) 2 mg PO Q4H PRN PRN Reason: DIARRHEA Lorazepam (Ativan) 0.5 mg PO Q8H PRN PRN Reason: ANXIETY Last Admin: 10/19/17 19:51 Dose: 0.5 mg Lorazepam (Ativan) 1 mg IM Q4H PRN PRN Reason: Agitation Last Admin: 10/14/17 22:35 Dose: 1 mg Miscellaneous Information (Remove Patch) 1 ea TRDERM Q72H [facility] Last Admin: 10/20/17 10:35 Dose: 1 ea Morphine Sulfate (Morphine) 2 mg SUBCUT Q4H PRN PRN Reason: PAIN Last Admin: 10/13/17 13:08 Dose: 2 mg Seroquel 400mg (Tablets) 1 each PO BEDTIME [facility] Last Admin: 10/19/17 19:51 Dose: 1 each Non-Formulary Medication (Metronidazole [Metronidazole 0.75% Cream]) 1 applic TOP DAILY [facility] Last Admin: 10/20/17 10:35 Dose: 1 applic Quetiapine Fumarate (Seroquel) 50 mg PO BEDTIME [facility] Last Admin: 10/19/17 19:51 Dose: 50 mg Quetiapine Fumarate (Seroquel) 200 mg PO DAILY@0800,1200 [facility] Last Admin: 10/20/17 12:38 Dose: 200 mg Quetiapine Fumarate (Seroquel) 50 mg PO DAILY@0800,1200 [facility] Last Admin: 10/20/17 12:38 Dose: 50 mg Scopolamine (Transderm-Scop) 1.5 mg TOP Q72H PRN PRN Reason: SECRETIONS Senna/Docusate Sodium (Senna Plus) 1 tab PO BID@0800,1700 [facility] Last Admin: 10/20/17 09:05 Dose: 1 tab Discontinued Medications Acetaminophen (Tylenol) 650 mg PO BID [facility] Last Admin: 10/19/17 07:20 Dose: 650 mg Lorazepam (Ativan) Confirm Administered Dose 2 mg .ROUTE .STK-MED ONE Stop: 10/10/17 19:54 Last Admin: 10/10/17 20:02 Dose: 2 mg - Exam General: Alert HEENT: Pupils Equal, Pupils Reactive, EOMI Neck: Supple Lungs: Clear to Auscultation, Normal Respiratory Effort Cardiovascular: Regular Rate, Regular Rhythm GI/Abdominal Exam: Normal Bowel Sounds Skin: Warm, Dry, Intact Neurological: No New Focal Deficit Psy/Mental Status: Alert, Hallucinations - Problem List & Annotations (1) Comfort measures only status SNOMED Code(s): 53313501059033 Code(s): Z51.5 - ENCOUNTER FOR PALLIATIVE CARE Status: Chronic Priority: High Current Visit: Yes (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 Code(s): F03.91 - UNSPECIFIED DEMENTIA WITH BEHAVIORAL DISTURBANCE Status: Chronic Priority: High Current Visit: Yes Qualifiers: Dementia behavioral disturbance: with behavioral disturbance Qualified Code (s): F02.81 - Dementia in other diseases classified elsewhere with behavioral disturbance (3) Diabetes mellitus SNOMED Code(s): 83470615 Code(s): E11.9 - TYPE 2 DIABETES MELLITUS WITHOUT COMPLICATIONS Status: Chronic Priority: Medium Current Visit: Yes Qualifiers: Diabetes mellitus type: type 2 Diabetes mellitus complication status: with hyperglycemia Diabetes mellitus terminal superintendent insulin use: without usp use Qualified Code(s): E11.65 - Type 2 diabetes mellitus with hyperglycemia (4) Incontinence overflow, urine SNOMED Code(s): 824988882 Code(s): N39.490 - OVERFLOW INCONTINENCE Status: Chronic Priority: Medium Current Visit: Yes (5) Neurogenic bladder SNOMED Code(s): 129455936 Code(s): N31.9 - NEUROMUSCULAR DYSFUNCTION OF BLADDER, UNSPECIFIED Status: Chronic Priority: Medium Current Visit: Yes (6) Palliative care patient SNOMED Code(s): 640775066 Code(s): Z51.5 - ENCOUNTER FOR PALLIATIVE CARE Status: Chronic Priority: High Current Visit: Yes (7) Paranoid schizophrenia, chronic condition SNOMED Code(s): 84700222 Code(s): F20.0 - PARANOID SCHIZOPHRENIA Status: Chronic Priority: High Current Visit: Yes - Problem List Review Problem List Initiated/Reviewed/Updated: Yes - My Orders Last 24 Hours: My Active Orders 10/19/17 20:00 Acetaminophen [Tylenol Arthritis Pain] 650 mg PO BID - Plan Plan:: Patient to continue current diet and management. No changes to supportive care. We will also continue to monitor for any bed sores. Patient resting well and is very stable.
[2017-10-20] MEDS: Acetaminophen/HYDROcodone 325-5 MG Tab PO PRN (20:08)
[2017-10-20] MEDS: SEROQUEL 400 MG PO SCH (20:09)
[2017-10-20] MEDS: LORazepam 0.5 MG Tab PO PRN (20:09)
[2017-10-21] MEDS: Non-Formulary Medication 1 Each (Metronidazole [Metronidazole 0.75% Cream] 1 APPLIC) TOP SCH (08:42)
[2017-10-21] MEDS: Acetaminophen 650 MG Tab.ER PO SCH ×2 (08:43→19:00)
[2017-10-21] MEDS: Citalopram 20 MG Tab PO SCH (08:44)
[2017-10-21] MEDS: LORazepam 0.5 MG Tab PO PRN (08:46)
[2017-10-21] MEDS: Acetaminophen/HYDROcodone 325-5 MG Tab PO PRN (19:00)
[2017-10-21] MEDS: SEROQUEL 400 MG PO SCH (19:00)
[2017-10-22] MEDS: Acetaminophen/HYDROcodone 325-5 MG Tab PO PRN ×2 (00:37→19:00)
[2017-10-22] MEDS: Citalopram 20 MG Tab PO SCH (07:41)
[2017-10-22] MEDS: Acetaminophen 650 MG Tab.ER PO SCH ×2 (07:41→19:00)
[2017-10-22] MEDS: Non-Formulary Medication 1 Each (Metronidazole [Metronidazole 0.75% Cream] 1 APPLIC) TOP SCH (07:42)
[2017-10-22] MEDS: SEROQUEL 400 MG PO SCH (19:00)
[2017-10-23] MEDS: Acetaminophen/HYDROcodone 325-5 MG Tab PO PRN ×3 (03:30→19:37)
[2017-10-23] MEDS: LORazepam 2 MG/ML SDV IM PRN (05:45)
[2017-10-23] MEDS: Citalopram 20 MG Tab PO SCH (07:30)
[2017-10-23] MEDS: Non-Formulary Medication 1 Each (Metronidazole [Metronidazole 0.75% Cream] 1 APPLIC) TOP SCH (07:31)
[2017-10-23] MEDS: fentaNYL 12 MCG/HR Transdermal Patch TRDERM SCH (07:31)
[2017-10-23] MEDS: LORazepam 0.5 MG Tab PO PRN ×2 (07:32→19:37)
[2017-10-23] MEDS: Acetaminophen 650 MG Tab.ER PO SCH ×2 (07:35→19:38)
[2017-10-23] MEDS: fentaNYL 25 MCG/HR Transdermal Patch TRDERM SCH (08:58)
[2017-10-23] MEDS: SEROQUEL 400 MG PO SCH (19:38)
[2017-10-24] MEDS: Citalopram 20 MG Tab PO SCH (10:00)
[2017-10-24] MEDS: Acetaminophen 650 MG Tab.ER PO SCH ×2 (10:00→21:37)
[2017-10-24] MEDS: Non-Formulary Medication 1 Each (Metronidazole [Metronidazole 0.75% Cream] 1 APPLIC) TOP SCH (10:20)
[2017-10-24] MEDS: Acetaminophen/HYDROcodone 325-5 MG Tab PO PRN (13:45)
[2017-10-24] MEDS: SEROQUEL 400 MG PO SCH (21:37)
[2017-10-25] MEDS: Non-Formulary Medication 1 Each (Metronidazole [Metronidazole 0.75% Cream] 1 APPLIC) TOP SCH (09:52)
[2017-10-25] MEDS: Acetaminophen 650 MG Tab.ER PO SCH ×2 (09:53→19:47)
[2017-10-25] MEDS: Citalopram 20 MG Tab PO SCH (09:54)
[2017-10-25] MEDS: Acetaminophen/HYDROcodone 325-5 MG Tab PO PRN (15:30)
[2017-10-25] MEDS: SEROQUEL 400 MG PO SCH (19:48)
[2017-10-25] MEDS: LORazepam 0.5 MG Tab PO PRN (19:52)
[2017-10-26] MEDS: Non-Formulary Medication 1 Each (Metronidazole [Metronidazole 0.75% Cream] 1 APPLIC) TOP SCH (09:00)
[2017-10-26] MEDS: Citalopram 20 MG Tab PO SCH ×2 (09:00→12:25)
[2017-10-26] MEDS: Acetaminophen 650 MG Tab.ER PO SCH ×2 (09:05→19:50)
[2017-10-26] MEDS: fentaNYL 25 MCG/HR Transdermal Patch TRDERM SCH (12:15)
[2017-10-26] MEDS: fentaNYL 12 MCG/HR Transdermal Patch TRDERM SCH (12:15)
[2017-10-26] MEDS: LORazepam 0.5 MG Tab PO PRN ×2 (12:23→19:50)
[2017-10-26] MEDS: Acetaminophen/HYDROcodone 325-5 MG Tab PO PRN ×2 (12:24→19:50)
[2017-10-26] MEDS: SEROQUEL 400 MG PO SCH (19:50)
[2017-10-27] MEDS: Citalopram 20 MG Tab PO SCH (07:47)
[2017-10-27] MEDS: Non-Formulary Medication 1 Each (Metronidazole [Metronidazole 0.75% Cream] 1 APPLIC) TOP SCH (07:48)
[2017-10-27] MEDS: Acetaminophen/HYDROcodone 325-5 MG Tab PO PRN ×2 (07:48→23:14)
[2017-10-27] MEDS: Acetaminophen 650 MG Tab.ER PO SCH ×2 (07:48→21:42)
[2017-10-27] MEDS: SEROQUEL 400 MG PO SCH (21:43)
[2017-10-27] MEDS: LORazepam 0.5 MG Tab PO PRN (23:14)
[2017-10-28] MEDS: Citalopram 20 MG Tab PO SCH (08:08)
[2017-10-28] MEDS: Acetaminophen 650 MG Tab.ER PO SCH ×2 (08:09→19:29)
[2017-10-28] MEDS: Non-Formulary Medication 1 Each (Metronidazole [Metronidazole 0.75% Cream] 1 APPLIC) TOP SCH (08:09)
[2017-10-28] MEDS: SEROQUEL 400 MG PO SCH (19:29)
[2017-10-28] MEDS: LORazepam 0.5 MG Tab PO PRN (19:29)
[2017-10-28] MEDS: Acetaminophen/HYDROcodone 325-5 MG Tab PO PRN (19:30)
[2017-10-29] MEDS: fentaNYL 25 MCG/HR Transdermal Patch TRDERM SCH (09:59)
[2017-10-29] MEDS: Citalopram 20 MG Tab PO SCH (10:00)
[2017-10-29] MEDS: fentaNYL 12 MCG/HR Transdermal Patch TRDERM SCH (10:00)
[2017-10-29] MEDS: Non-Formulary Medication 1 Each (Metronidazole [Metronidazole 0.75% Cream] 1 APPLIC) TOP SCH (10:00)
[2017-10-29] MEDS: Acetaminophen 650 MG Tab.ER PO SCH ×2 (10:01→20:08)
[2017-10-29] MEDS: LORazepam 0.5 MG Tab PO PRN ×2 (10:03→20:06)
[2017-10-29] MEDS: Acetaminophen/HYDROcodone 325-5 MG Tab PO PRN (10:03)
[2017-10-29] MEDS: SEROQUEL 400 MG PO SCH (20:07)
[2017-10-30] MEDS: Acetaminophen 650 MG Tab.ER PO SCH ×2 (07:29→20:20)
[2017-10-30] MEDS: Citalopram 20 MG Tab PO SCH (07:29)
[2017-10-30] MEDS: Non-Formulary Medication 1 Each (Metronidazole [Metronidazole 0.75% Cream] 1 APPLIC) TOP SCH (07:30)
[2017-10-30] MEDS: LORazepam 2 MG/ML SDV IM PRN (19:15)
[2017-10-30] MEDS: SEROQUEL 400 MG PO SCH (20:20)
[2017-10-30] MEDS: Acetaminophen/HYDROcodone 325-5 MG Tab PO PRN (20:20)
[2017-10-31] MEDS: Acetaminophen 650 MG Tab.ER PO SCH ×2 (08:05→19:24)
[2017-10-31] MEDS: Citalopram 20 MG Tab PO SCH (08:06)
[2017-10-31] MEDS: Non-Formulary Medication 1 Each (Metronidazole [Metronidazole 0.75% Cream] 1 APPLIC) TOP SCH (08:06)
[2017-10-31] MEDS: Acetaminophen/HYDROcodone 325-5 MG Tab PO PRN (19:24)
[2017-10-31] MEDS: SEROQUEL 400 MG PO SCH (19:24)
[2017-11-01] MEDS: Citalopram 20 MG Tab PO SCH (08:14)
[2017-11-01] MEDS: Acetaminophen 650 MG Tab.ER PO SCH ×2 (08:14→20:23)
[2017-11-01] MEDS: Non-Formulary Medication 1 Each (Metronidazole [Metronidazole 0.75% Cream] 1 APPLIC) TOP SCH (08:15)
[2017-11-01] MEDS: fentaNYL 25 MCG/HR Transdermal Patch TRDERM SCH (08:22)
[2017-11-01] MEDS: fentaNYL 12 MCG/HR Transdermal Patch TRDERM SCH (08:23)
[2017-11-01] MEDS: LORazepam 0.5 MG Tab PO PRN (19:30)
[2017-11-01] MEDS: Acetaminophen/HYDROcodone 325-5 MG Tab PO PRN ×2 (19:30→23:13)
[2017-11-01] MEDS: SEROQUEL 400 MG PO SCH (20:23)
[2017-11-02] MEDS: Citalopram 20 MG Tab PO SCH (07:19)
[2017-11-02] MEDS: Acetaminophen 650 MG Tab.ER PO SCH ×3 (07:20→22:43)
[2017-11-02] MEDS: Non-Formulary Medication 1 Each (Metronidazole [Metronidazole 0.75% Cream] 1 APPLIC) TOP SCH (07:20)
[2017-11-02] MEDS: Acetaminophen/HYDROcodone 325-5 MG Tab PO PRN (07:27)
[2017-11-02] MEDS: LORazepam 0.5 MG Tab PO PRN (07:27)
[2017-11-02] MEDS: SEROQUEL 400 MG PO SCH (22:42)
[2017-11-03] MEDS: Citalopram 20 MG Tab PO SCH (07:32)
[2017-11-03] MEDS: Non-Formulary Medication 1 Each (Metronidazole [Metronidazole 0.75% Cream] 1 APPLIC) TOP SCH (07:32)
[2017-11-03] MEDS: Acetaminophen/HYDROcodone 325-5 MG Tab PO PRN ×3 (07:33→16:06)
[2017-11-03] MEDS: Acetaminophen 650 MG Tab.ER PO SCH ×2 (07:33→20:57)
[2017-11-03] MEDS: SEROQUEL 400 MG PO SCH (20:58)
[2017-11-04] MEDS: LORazepam 0.5 MG Tab PO PRN (05:29)
[2017-11-04] MEDS: Acetaminophen/HYDROcodone 325-5 MG Tab PO PRN ×3 (05:30→13:03)
[2017-11-04] MEDS: Citalopram 20 MG Tab PO SCH (07:58)
[2017-11-04] MEDS: Non-Formulary Medication 1 Each (Metronidazole [Metronidazole 0.75% Cream] 1 APPLIC) TOP SCH (07:58)
[2017-11-04] MEDS: Acetaminophen 650 MG Tab.ER PO SCH ×2 (07:59→20:30)
[2017-11-04] MEDS: fentaNYL 25 MCG/HR Transdermal Patch TRDERM SCH (08:00)
[2017-11-04] MEDS: fentaNYL 12 MCG/HR Transdermal Patch TRDERM SCH (08:00)
[2017-11-04] MEDS: SEROQUEL 400 MG PO SCH (20:30)
[2017-11-05] MEDS: Acetaminophen/HYDROcodone 325-5 MG Tab PO PRN (08:34)
[2017-11-05] MEDS: Citalopram 20 MG Tab PO SCH (08:36)
[2017-11-05] MEDS: Acetaminophen 650 MG Tab.ER PO SCH ×2 (08:44→19:29)
[2017-11-05] MEDS: Non-Formulary Medication 1 Each (Metronidazole [Metronidazole 0.75% Cream] 1 APPLIC) TOP SCH (12:36)
[2017-11-05] MEDS: SEROQUEL 400 MG PO SCH (19:29)
[2017-11-06] MEDS: Citalopram 20 MG Tab PO SCH (08:53)
[2017-11-06] MEDS: Non-Formulary Medication 1 Each (Metronidazole [Metronidazole 0.75% Cream] 1 APPLIC) TOP SCH (08:54)
[2017-11-06] MEDS: Acetaminophen 650 MG Tab.ER PO SCH ×2 (08:55→19:13)
[2017-11-06] MEDS: LORazepam 0.5 MG Tab PO PRN ×2 (11:31→19:13)
[2017-11-06] MEDS: Acetaminophen/HYDROcodone 325-5 MG Tab PO PRN ×2 (11:32→19:13)
[2017-11-06] MEDS: SEROQUEL 400 MG PO SCH (19:13)
[2017-11-07] MEDS: Acetaminophen/HYDROcodone 325-5 MG Tab PO PRN ×2 (09:00→19:15)
[2017-11-07] MEDS: Citalopram 20 MG Tab PO SCH (09:01)
[2017-11-07] MEDS: fentaNYL 25 MCG/HR Transdermal Patch TRDERM SCH (09:02)
[2017-11-07] MEDS: fentaNYL 12 MCG/HR Transdermal Patch TRDERM SCH (09:03)
[2017-11-07] MEDS: Non-Formulary Medication 1 Each (Metronidazole [Metronidazole 0.75% Cream] 1 APPLIC) TOP SCH (09:04)
[2017-11-07] MEDS: Acetaminophen 650 MG Tab.ER PO SCH ×2 (09:08→19:16)
[2017-11-07] MEDS: SEROQUEL 400 MG PO SCH (19:16)
[2017-11-08] MEDS: Citalopram 20 MG Tab PO SCH (08:00)
[2017-11-08] MEDS: Acetaminophen 650 MG Tab.ER PO SCH ×2 (08:00→20:00)
[2017-11-08] MEDS: Non-Formulary Medication 1 Each (Metronidazole [Metronidazole 0.75% Cream] 1 APPLIC) TOP SCH (13:24)
[2017-11-08] MEDS: Bisacodyl 10 MG Supp RECTAL PRN (16:30)
[2017-11-08] MEDS: SEROQUEL 400 MG PO SCH (20:00)
[2017-11-09] MEDS: Acetaminophen/HYDROcodone 325-5 MG Tab PO PRN ×3 (00:25→19:50)
[2017-11-09] MEDS: LORazepam 0.5 MG Tab PO PRN ×2 (00:25→19:49)
[2017-11-09] MEDS: Non-Formulary Medication 1 Each (Metronidazole [Metronidazole 0.75% Cream] 1 APPLIC) TOP SCH (11:05)
[2017-11-09] MEDS: Citalopram 20 MG Tab PO SCH (11:05)
[2017-11-09] MEDS: Acetaminophen 650 MG Tab.ER PO SCH ×2 (11:07→19:49)
[2017-11-09] MEDS: SEROQUEL 400 MG PO SCH (19:48)
--- NOTE | 2017-11-10 04:58 | PCM.PN ---
- General Info Date of Service: 11/09/17 Subjective Update: Patient non-verbal. Does respond to stimuli and light touch. - Review of Systems General: Reports: Weakness, Other (unable to obtain ROS as patient will non communicate for commands but will speak randomly) - Patient Data Vitals - Most Recent: Last Vital Signs Temp 36.7 C 10/08/17 10:51 Pulse 80 10/28/17 08:46 Resp 14 10/28/17 08:46 BP 144/72 H 10/08/17 10:51 Pulse Ox 94 L 10/08/17 10:51 I&O - Last 24 Hours: Intake & Output 11/09/17 11/09/17 11/10/17 14:59 22:59 06:59 Intake Total 360 480 Balance 360 480 Med Orders - Current: Current Medications Acetaminophen (Tylenol Arthritis Pain) 650 mg PO BID [facility] Last Admin: 11/09/17 19:49 Dose: 650 mg Hydrocodone Bitart/Acetaminophen ([place] 325-5 Mg) 1 tab PO Q4H PRN PRN Reason: MODERATE PAIN Last Admin: 11/09/17 19:50 Dose: 1 tab Bisacodyl (Dulcolax) 10 mg RECTAL DAILY PRN PRN Reason: CONSTIPATION Last Admin: 11/08/17 16:30 Dose: 10 mg Citalopram Hydrobromide (Celexa) 20 mg PO DAILY [facility] Last Admin: 11/09/17 11:05 Dose: 20 mg Fentanyl (Duragesic) 25 mcg TRDERM Q72H [facility] Last Admin: 11/07/17 09:02 Dose: 25 mcg Fentanyl (Duragesic) 12 mcg TRDERM Q72H [facility] Last Admin: 11/07/17 09:03 Dose: 12 mcg Loperamide HCl (Imodium) 2 mg PO Q4H PRN PRN Reason: DIARRHEA Lorazepam (Ativan) 0.5 mg PO Q8H PRN PRN Reason: ANXIETY Last Admin: 11/09/17 19:49 Dose: 0.5 mg Lorazepam (Ativan) 1 mg IM Q4H PRN PRN Reason: Agitation Last Admin: 10/30/17 19:15 Dose: 1 mg Miscellaneous Information (Remove Patch) 1 ea TRDERM Q72H [facility] Last Admin: 11/07/17 09:05 Dose: 1 ea Morphine Sulfate (Morphine) 2 mg SUBCUT Q4H PRN PRN Reason: PAIN Last Admin: 10/13/17 13:08 Dose: 2 mg Seroquel 400mg (Tablets) 1 each PO BEDTIME [facility] Last Admin: 11/09/17 19:48 Dose: 1 each Non-Formulary Medication (Metronidazole [Metronidazole 0.75% Cream]) 1 applic TOP DAILY [facility] Last Admin: 11/09/17 11:05 Dose: 1 applic Quetiapine Fumarate (Seroquel) 50 mg PO BEDTIME [facility] Last Admin: 11/09/17 19:49 Dose: 50 mg Quetiapine Fumarate (Seroquel) 200 mg PO DAILY@0800,1200 [facility] Last Admin: 11/09/17 12:46 Dose: 200 mg Quetiapine Fumarate (Seroquel) 50 mg PO DAILY@0800,1200 [facility] Last Admin: 11/09/17 12:46 Dose: 50 mg Scopolamine (Transderm-Scop) 1.5 mg TOP Q72H PRN PRN Reason: SECRETIONS Senna/Docusate Sodium (Senna Plus) 1 tab PO BID@0800,1700 [facility] Last Admin: 11/09/17 17:53 Dose: 1 tab Discontinued Medications Acetaminophen (Tylenol) 650 mg PO BID [facility] Last Admin: 10/19/17 07:20 Dose: 650 mg Lorazepam (Ativan) Confirm Administered Dose 2 mg .ROUTE .STK-MED ONE Stop: 10/10/17 19:54 Last Admin: 10/10/17 20:02 Dose: 2 mg - Exam Lungs: Normal Respiratory Effort, Rhonchi Cardiovascular: Regular Rate, Regular Rhythm GI/Abdominal Exam: Normal Bowel Sounds Extremities: Normal Inspection Peripheral Pulses: 2+: Dorsalis Pedis (L), Dorsalis Pedis (R) Skin: Warm, Dry, Intact - Problem List & Annotations (1) Comfort measures only status SNOMED Code(s): 47921751998412 Code(s): Z51.5 - ENCOUNTER FOR PALLIATIVE CARE Status: Chronic Priority: High Current Visit: Yes (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 Code(s): F03.91 - UNSPECIFIED DEMENTIA WITH BEHAVIORAL DISTURBANCE Status: Chronic Priority: High Current Visit: Yes Qualifiers: Dementia behavioral disturbance: with behavioral disturbance Qualified Code (s): F02.81 - Dementia in other diseases classified elsewhere with behavioral disturbance (3) Diabetes mellitus SNOMED Code(s): 57610359 Code(s): E11.9 - TYPE 2 DIABETES MELLITUS WITHOUT COMPLICATIONS Status: Chronic Priority: Medium Current Visit: Yes Qualifiers: Diabetes mellitus type: type 2 Diabetes mellitus complication status: with hyperglycemia Diabetes mellitus maintenance planner insulin use: without fci use Qualified Code(s): E11.65 - Type 2 diabetes mellitus with hyperglycemia (4) Incontinence overflow, urine SNOMED Code(s): 760795740 Code(s): N39.490 - OVERFLOW INCONTINENCE Status: Chronic Priority: Medium Current Visit: Yes (5) Neurogenic bladder SNOMED Code(s): 030550503 Code(s): N31.9 - NEUROMUSCULAR DYSFUNCTION OF BLADDER, UNSPECIFIED Status: Chronic Priority: Medium Current Visit: Yes (6) Palliative care patient SNOMED Code(s): 250961558 Code(s): Z51.5 - ENCOUNTER FOR PALLIATIVE CARE Status: Chronic Priority: High Current Visit: Yes (7) Paranoid schizophrenia, chronic condition SNOMED Code(s): 93439832 Code(s): F20.0 - PARANOID SCHIZOPHRENIA Status: Chronic Priority: High Current Visit: Yes - Problem List Review Problem List Initiated/Reviewed/Updated: Yes - Plan Plan:: Patient to continue current diet and management. No changes to supportive care. We will also continue to monitor for any bed sores. Patient resting well and is very stable. 11/09/17 No changes to status at this time. Patient is resting comfortably. He does eat with help from nursing staff.
[2017-11-10] MEDS: Non-Formulary Medication 1 Each (Metronidazole [Metronidazole 0.75% Cream] 1 APPLIC) TOP SCH (07:46)
[2017-11-10] MEDS: fentaNYL 25 MCG/HR Transdermal Patch TRDERM SCH (07:46)
[2017-11-10] MEDS: Citalopram 20 MG Tab PO SCH (07:46)
[2017-11-10] MEDS: fentaNYL 12 MCG/HR Transdermal Patch TRDERM SCH (07:46)
[2017-11-10] MEDS: Acetaminophen 650 MG Tab.ER PO SCH ×2 (07:47→19:52)
[2017-11-10] MEDS: Acetaminophen/HYDROcodone 325-5 MG Tab PO PRN ×4 (07:47→19:53)
[2017-11-10] MEDS: SEROQUEL 400 MG PO SCH (19:51)
[2017-11-10] MEDS: LORazepam 2 MG/ML SDV IM PRN (19:54)
[2017-11-11] MEDS: Non-Formulary Medication 1 Each (Metronidazole [Metronidazole 0.75% Cream] 1 APPLIC) TOP SCH (07:00)
[2017-11-11] MEDS: Acetaminophen 650 MG Tab.ER PO SCH ×2 (07:30→19:15)
[2017-11-11] MEDS: Acetaminophen/HYDROcodone 325-5 MG Tab PO PRN ×3 (07:30→17:00)
[2017-11-11] MEDS: Citalopram 20 MG Tab PO SCH (07:30)
[2017-11-11] MEDS: SEROQUEL 400 MG PO SCH (19:15)
[2017-11-11] MEDS: Morphine 2 MG/ML Syringe SUBCUT PRN (19:15)
[2017-11-11] MEDS: LORazepam 0.5 MG Tab PO PRN (19:15)
[2017-11-12] MEDS: Acetaminophen/HYDROcodone 325-5 MG Tab PO PRN ×3 (07:47→20:52)
[2017-11-12] MEDS: Non-Formulary Medication 1 Each (Metronidazole [Metronidazole 0.75% Cream] 1 APPLIC) TOP SCH (07:48)
[2017-11-12] MEDS: Citalopram 20 MG Tab PO SCH (07:48)
[2017-11-12] MEDS: Acetaminophen 650 MG Tab.ER PO SCH ×2 (07:48→20:51)
[2017-11-12] MEDS: LORazepam 0.5 MG Tab PO PRN ×2 (07:48→20:50)
[2017-11-12] MEDS: SEROQUEL 400 MG PO SCH (20:50)
[2017-11-13] MEDS: Citalopram 20 MG Tab PO SCH (07:32)
[2017-11-13] MEDS: Acetaminophen/HYDROcodone 325-5 MG Tab PO PRN (07:38)
[2017-11-13] MEDS: fentaNYL 25 MCG/HR Transdermal Patch TRDERM SCH (07:39)
[2017-11-13] MEDS: Acetaminophen 650 MG Tab.ER PO SCH ×2 (07:40→19:59)
[2017-11-13] MEDS: fentaNYL 12 MCG/HR Transdermal Patch TRDERM SCH (07:40)
[2017-11-13] MEDS: Non-Formulary Medication 1 Each (Metronidazole [Metronidazole 0.75% Cream] 1 APPLIC) TOP SCH (07:43)
[2017-11-13] MEDS: SEROQUEL 400 MG PO SCH (19:59)
[2017-11-13] MEDS: LORazepam 0.5 MG Tab PO PRN (20:00)
[2017-11-14] MEDS: Non-Formulary Medication 1 Each (Metronidazole [Metronidazole 0.75% Cream] 1 APPLIC) TOP SCH (09:07)
[2017-11-14] MEDS: LORazepam 0.5 MG Tab PO PRN ×2 (09:07→19:35)
[2017-11-14] MEDS: Acetaminophen 650 MG Tab.ER PO SCH ×2 (09:09→19:15)
[2017-11-14] MEDS: Acetaminophen/HYDROcodone 325-5 MG Tab PO PRN (09:09)
[2017-11-14] MEDS: Citalopram 20 MG Tab PO SCH (09:10)
[2017-11-14] MEDS: SEROQUEL 400 MG PO SCH (19:15)
[2017-11-15] MEDS: Citalopram 20 MG Tab PO SCH (07:49)
[2017-11-15] MEDS: LORazepam 0.5 MG Tab PO PRN ×2 (07:52→19:38)
[2017-11-15] MEDS: Acetaminophen/HYDROcodone 325-5 MG Tab PO PRN (07:52)
[2017-11-15] MEDS: Non-Formulary Medication 1 Each (Metronidazole [Metronidazole 0.75% Cream] 1 APPLIC) TOP SCH (10:38)
[2017-11-15] MEDS: Acetaminophen 650 MG Tab.ER PO SCH ×2 (10:39→19:36)
[2017-11-15] MEDS: SEROQUEL 400 MG PO SCH (19:36)
[2017-11-16] MEDS: Bisacodyl 10 MG Supp RECTAL PRN (06:18)
[2017-11-16] MEDS: Citalopram 20 MG Tab PO SCH (08:22)
[2017-11-16] MEDS: Acetaminophen 650 MG Tab.ER PO SCH ×2 (08:24→20:00)
[2017-11-16] MEDS: fentaNYL 12 MCG/HR Transdermal Patch TRDERM SCH (08:52)
[2017-11-16] MEDS: fentaNYL 25 MCG/HR Transdermal Patch TRDERM SCH (08:53)
[2017-11-16] MEDS: Non-Formulary Medication 1 Each (Metronidazole [Metronidazole 0.75% Cream] 1 APPLIC) TOP SCH (09:28)
[2017-11-16] MEDS: SEROQUEL 400 MG PO SCH (20:00)
[2017-11-16] MEDS: Acetaminophen/HYDROcodone 325-5 MG Tab PO PRN (20:00)
[2017-11-16] MEDS: LORazepam 0.5 MG Tab PO PRN (20:00)
[2017-11-17] MEDS: Citalopram 20 MG Tab PO SCH (07:34)
[2017-11-17] MEDS: Non-Formulary Medication 1 Each (Metronidazole [Metronidazole 0.75% Cream] 1 APPLIC) TOP SCH (07:36)
[2017-11-17] MEDS: Acetaminophen 650 MG Tab.ER PO SCH ×2 (07:36→19:49)
[2017-11-17] MEDS: Acetaminophen/HYDROcodone 325-5 MG Tab PO PRN (19:49)
[2017-11-17] MEDS: SEROQUEL 400 MG PO SCH (19:49)
[2017-11-17] MEDS: LORazepam 0.5 MG Tab PO PRN (19:49)
[2017-11-18] MEDS: Citalopram 20 MG Tab PO SCH (10:00)
[2017-11-18] MEDS: Acetaminophen/HYDROcodone 325-5 MG Tab PO PRN ×2 (10:00→20:15)
[2017-11-18] MEDS: Acetaminophen 650 MG Tab.ER PO SCH ×2 (10:00→20:15)
[2017-11-18] MEDS: Non-Formulary Medication 1 Each (Metronidazole [Metronidazole 0.75% Cream] 1 APPLIC) TOP SCH (10:00)
[2017-11-18] MEDS: SEROQUEL 400 MG PO SCH (20:15)
[2017-11-18] MEDS: LORazepam 0.5 MG Tab PO PRN (20:15)
[2017-11-19] MEDS: Citalopram 20 MG Tab PO SCH (09:02)
[2017-11-19] MEDS: Acetaminophen/HYDROcodone 325-5 MG Tab PO PRN ×2 (09:02→20:30)
[2017-11-19] MEDS: Acetaminophen 650 MG Tab.ER PO SCH ×2 (09:06→20:04)
[2017-11-19] MEDS: fentaNYL 12 MCG/HR Transdermal Patch TRDERM SCH (09:41)
[2017-11-19] MEDS: fentaNYL 25 MCG/HR Transdermal Patch TRDERM SCH (09:42)
[2017-11-19] MEDS: Non-Formulary Medication 1 Each (Metronidazole [Metronidazole 0.75% Cream] 1 APPLIC) TOP SCH (09:45)
[2017-11-19] MEDS: SEROQUEL 400 MG PO SCH (20:04)
[2017-11-19] MEDS: LORazepam 0.5 MG Tab PO PRN (20:05)
[2017-11-20] MEDS: Citalopram 20 MG Tab PO SCH (08:21)
[2017-11-20] MEDS: Non-Formulary Medication 1 Each (Metronidazole [Metronidazole 0.75% Cream] 1 APPLIC) TOP SCH (08:21)
[2017-11-20] MEDS: Acetaminophen/HYDROcodone 325-5 MG Tab PO PRN ×3 (08:22→21:47)
[2017-11-20] MEDS: Acetaminophen 650 MG Tab.ER PO SCH ×2 (08:22→20:44)
[2017-11-20] MEDS: SEROQUEL 400 MG PO SCH (20:44)
[2017-11-20] MEDS: LORazepam 0.5 MG Tab PO PRN (21:55)
[2017-11-21] MEDS: Acetaminophen/HYDROcodone 325-5 MG Tab PO PRN ×2 (09:00→20:55)
[2017-11-21] MEDS: Citalopram 20 MG Tab PO SCH (09:00)
[2017-11-21] MEDS: Acetaminophen 650 MG Tab.ER PO SCH ×2 (09:00→20:54)
[2017-11-21] MEDS: Non-Formulary Medication 1 Each (Metronidazole [Metronidazole 0.75% Cream] 1 APPLIC) TOP SCH (09:00)
[2017-11-21] MEDS: SEROQUEL 400 MG PO SCH (20:52)
[2017-11-21] MEDS: LORazepam 0.5 MG Tab PO PRN (20:57)
[2017-11-22] MEDS: Citalopram 20 MG Tab PO SCH (07:34)
[2017-11-22] MEDS: fentaNYL 25 MCG/HR Transdermal Patch TRDERM SCH (07:43)
[2017-11-22] MEDS: fentaNYL 12 MCG/HR Transdermal Patch TRDERM SCH (07:44)
[2017-11-22] MEDS: Acetaminophen 650 MG Tab.ER PO SCH ×2 (07:45→19:53)
[2017-11-22] MEDS: Acetaminophen/HYDROcodone 325-5 MG Tab PO PRN ×3 (07:45→19:53)
[2017-11-22] MEDS: Non-Formulary Medication 1 Each (Metronidazole [Metronidazole 0.75% Cream] 1 APPLIC) TOP SCH (07:45)
[2017-11-22] MEDS: SEROQUEL 400 MG PO SCH (19:52)
[2017-11-22] MEDS: LORazepam 0.5 MG Tab PO PRN (19:53)
[2017-11-23] MEDS: Acetaminophen 650 MG Tab.ER PO SCH ×2 (09:00→20:17)
[2017-11-23] MEDS: Acetaminophen/HYDROcodone 325-5 MG Tab PO PRN ×3 (09:00→20:16)
[2017-11-23] MEDS: Non-Formulary Medication 1 Each (Metronidazole [Metronidazole 0.75% Cream] 1 APPLIC) TOP SCH (09:00)
[2017-11-23] MEDS: Citalopram 20 MG Tab PO SCH (09:00)
[2017-11-23] MEDS: LORazepam 0.5 MG Tab PO PRN ×2 (15:05→20:17)
[2017-11-23] MEDS: SEROQUEL 400 MG PO SCH (20:17)
[2017-11-24] MEDS: Citalopram 20 MG Tab PO SCH (08:18)
[2017-11-24] MEDS: Acetaminophen 650 MG Tab.ER PO SCH ×2 (08:20→20:46)
[2017-11-24] MEDS: Non-Formulary Medication 1 Each (Metronidazole [Metronidazole 0.75% Cream] 1 APPLIC) TOP SCH (08:21)
[2017-11-24] MEDS: LORazepam 0.5 MG Tab PO PRN (20:45)
[2017-11-24] MEDS: SEROQUEL 400 MG PO SCH (20:45)
[2017-11-24] MEDS: Acetaminophen/HYDROcodone 325-5 MG Tab PO PRN (20:46)
[2017-11-25] MEDS: Citalopram 20 MG Tab PO SCH (08:59)
[2017-11-25] MEDS: Acetaminophen 650 MG Tab.ER PO SCH ×2 (09:00→20:22)
[2017-11-25] MEDS: fentaNYL 12 MCG/HR Transdermal Patch TRDERM SCH (09:08)
[2017-11-25] MEDS: fentaNYL 25 MCG/HR Transdermal Patch TRDERM SCH (09:09)
[2017-11-25] MEDS: Non-Formulary Medication 1 Each (Metronidazole [Metronidazole 0.75% Cream] 1 APPLIC) TOP SCH (09:10)
[2017-11-25] MEDS: SEROQUEL 400 MG PO SCH (20:21)
[2017-11-25] MEDS: Acetaminophen/HYDROcodone 325-5 MG Tab PO PRN (20:21)
[2017-11-25] MEDS: LORazepam 0.5 MG Tab PO PRN (20:21)
[2017-11-26] MEDS: Non-Formulary Medication 1 Each (Metronidazole [Metronidazole 0.75% Cream] 1 APPLIC) TOP SCH (09:54)
[2017-11-26] MEDS: Citalopram 20 MG Tab PO SCH (09:54)
[2017-11-26] MEDS: Acetaminophen/HYDROcodone 325-5 MG Tab PO PRN ×2 (09:55→20:10)
[2017-11-26] MEDS: LORazepam 0.5 MG Tab PO PRN ×2 (09:55→20:10)
[2017-11-26] MEDS: Acetaminophen 650 MG Tab.ER PO SCH ×2 (09:55→20:10)
[2017-11-26] MEDS: Bisacodyl 10 MG Supp RECTAL PRN (09:56)
[2017-11-26] MEDS: SEROQUEL 400 MG PO SCH (20:10)
[2017-11-27] MEDS: Citalopram 20 MG Tab PO SCH (08:35)
[2017-11-27] MEDS: Non-Formulary Medication 1 Each (Metronidazole [Metronidazole 0.75% Cream] 1 APPLIC) TOP SCH (08:36)
[2017-11-27] MEDS: Acetaminophen 650 MG Tab.ER PO SCH ×2 (08:37→19:36)
[2017-11-27] MEDS: Acetaminophen/HYDROcodone 325-5 MG Tab PO PRN (17:29)
[2017-11-27] MEDS: CIPROFLOXACIN 250 MG PO SCH (19:35)
[2017-11-27] MEDS: LORazepam 0.5 MG Tab PO PRN (19:35)
[2017-11-27] MEDS: SEROQUEL 400 MG PO SCH (19:36)
[2017-11-28] MEDS: Acetaminophen/HYDROcodone 325-5 MG Tab PO PRN (08:26)
[2017-11-28] MEDS: Citalopram 20 MG Tab PO SCH (08:27)
[2017-11-28] MEDS: CIPROFLOXACIN 250 MG PO SCH ×2 (08:27→20:16)
[2017-11-28] MEDS: fentaNYL 25 MCG/HR Transdermal Patch TRDERM SCH (08:56)
[2017-11-28] MEDS: fentaNYL 12 MCG/HR Transdermal Patch TRDERM SCH (08:57)
[2017-11-28] MEDS: Non-Formulary Medication 1 Each (Metronidazole [Metronidazole 0.75% Cream] 1 APPLIC) TOP SCH (08:57)
[2017-11-28] MEDS: Acetaminophen 650 MG Tab.ER PO SCH ×2 (08:58→20:17)
[2017-11-28] MEDS: SEROQUEL 400 MG PO SCH (20:17)
[2017-11-28] MEDS: LORazepam 0.5 MG Tab PO PRN (20:17)
[2017-11-29] MEDS: Acetaminophen/HYDROcodone 325-5 MG Tab PO PRN ×2 (08:30→19:35)
[2017-11-29] MEDS: Acetaminophen 650 MG Tab.ER PO SCH ×2 (08:30→19:33)
[2017-11-29] MEDS: CIPROFLOXACIN 250 MG PO SCH ×2 (08:30→19:36)
[2017-11-29] MEDS: Citalopram 20 MG Tab PO SCH (08:30)
[2017-11-29] MEDS: Non-Formulary Medication 1 Each (Metronidazole [Metronidazole 0.75% Cream] 1 APPLIC) TOP SCH (09:52)
[2017-11-29] MEDS: LORazepam 0.5 MG Tab PO PRN (19:34)
[2017-11-29] MEDS: SEROQUEL 400 MG PO SCH (19:37)
[2017-11-30] MEDS: Citalopram 20 MG Tab PO SCH (07:36)
[2017-11-30] MEDS: CIPROFLOXACIN 250 MG PO SCH ×2 (07:37→20:31)
[2017-11-30] MEDS: Non-Formulary Medication 1 Each (Metronidazole [Metronidazole 0.75% Cream] 1 APPLIC) TOP SCH (07:37)
[2017-11-30] MEDS: Acetaminophen 650 MG Tab.ER PO SCH ×2 (07:39→20:32)
[2017-11-30] MEDS: SEROQUEL 400 MG PO SCH (20:31)
[2017-11-30] MEDS: Acetaminophen/HYDROcodone 325-5 MG Tab PO PRN (20:34)
[2017-11-30] MEDS: LORazepam 0.5 MG Tab PO PRN (20:36)
[2017-12-01] MEDS: CIPROFLOXACIN 250 MG PO SCH ×2 (08:00→20:33)
[2017-12-01] MEDS: Acetaminophen 650 MG Tab.ER PO SCH ×2 (08:00→20:33)
[2017-12-01] MEDS: fentaNYL 12 MCG/HR Transdermal Patch TRDERM SCH (08:00)
[2017-12-01] MEDS: fentaNYL 25 MCG/HR Transdermal Patch TRDERM SCH (08:00)
[2017-12-01] MEDS: Citalopram 20 MG Tab PO SCH (08:00)
[2017-12-01] MEDS: Non-Formulary Medication 1 Each (Metronidazole [Metronidazole 0.75% Cream] 1 APPLIC) TOP SCH (08:00)
[2017-12-01] MEDS ORDERED: fentaNYL 12 MCG/HR Transdermal Patch TRDERM SCH (08:00)
[2017-12-01] MEDS: SEROQUEL 400 MG PO SCH (20:30)
[2017-12-01] MEDS: LORazepam 0.5 MG Tab PO PRN (20:34)
[2017-12-01] MEDS: Acetaminophen/HYDROcodone 325-5 MG Tab PO PRN (20:34)
[2017-12-02] MEDS: CIPROFLOXACIN 250 MG PO SCH ×2 (08:03→20:56)
[2017-12-02] MEDS: Citalopram 20 MG Tab PO SCH (08:04)
[2017-12-02] MEDS: Acetaminophen 650 MG Tab.ER PO SCH ×2 (08:06→20:57)
[2017-12-02] MEDS: Non-Formulary Medication 1 Each (Metronidazole [Metronidazole 0.75% Cream] 1 APPLIC) TOP SCH (08:06)
[2017-12-02] MEDS ORDERED: fentaNYL 25 MCG/HR Transdermal Patch TRDERM ONE (18:30)
[2017-12-02] MEDS: LORazepam 0.5 MG Tab PO PRN (20:56)
[2017-12-02] MEDS: SEROQUEL 400 MG PO SCH (20:56)
[2017-12-03] MEDS: Acetaminophen/HYDROcodone 325-5 MG Tab PO PRN ×2 (07:46→19:47)
[2017-12-03] MEDS: Citalopram 20 MG Tab PO SCH (07:47)
[2017-12-03] MEDS: CIPROFLOXACIN 250 MG PO SCH ×2 (07:50→19:47)
[2017-12-03] MEDS: Acetaminophen 650 MG Tab.ER PO SCH ×2 (07:50→19:54)
[2017-12-03] MEDS: Non-Formulary Medication 1 Each (Metronidazole [Metronidazole 0.75% Cream] 1 APPLIC) TOP SCH (10:30)
[2017-12-03] MEDS: Bisacodyl 10 MG Supp RECTAL PRN (17:07)
[2017-12-03] MEDS: SEROQUEL 400 MG PO SCH (19:47)
[2017-12-03] MEDS: LORazepam 0.5 MG Tab PO PRN (19:48)
[2017-12-04] MEDS ORDERED: fentaNYL 25 MCG/HR Transdermal Patch TRDERM SCH (08:00)
[2017-12-04] MEDS: Acetaminophen 650 MG Tab.ER PO SCH ×2 (08:05→20:27)
[2017-12-04] MEDS: Citalopram 20 MG Tab PO SCH (08:06)
[2017-12-04] MEDS: CIPROFLOXACIN 250 MG PO SCH ×2 (08:06→20:30)
[2017-12-04] MEDS: Non-Formulary Medication 1 Each (Metronidazole [Metronidazole 0.75% Cream] 1 APPLIC) TOP SCH (08:06)
[2017-12-04] MEDS: Acetaminophen/HYDROcodone 325-5 MG Tab PO PRN ×2 (08:07→20:28)
[2017-12-04] MEDS: LORazepam 0.5 MG Tab PO PRN ×2 (08:07→20:28)
[2017-12-04] MEDS: fentaNYL 50 MCG/HR Transdermal Patch TRDERM SCH (11:37)
[2017-12-04] MEDS: REMOVE FENTANYL TRDERM SCH (11:38)
[2017-12-04] MEDS: SEROQUEL 400 MG PO SCH (20:27)
[2017-12-05] MEDS: Non-Formulary Medication 1 Each (Metronidazole [Metronidazole 0.75% Cream] 1 APPLIC) TOP SCH (10:30)
[2017-12-05] MEDS: Acetaminophen/HYDROcodone 325-5 MG Tab PO PRN (12:00)
[2017-12-05] MEDS: Citalopram 20 MG Tab PO SCH (12:00)
[2017-12-05] MEDS: Acetaminophen 650 MG Tab.ER PO SCH ×2 (12:00→19:54)
[2017-12-05] MEDS: SEROQUEL 400 MG PO SCH (19:54)
[2017-12-06] MEDS: Acetaminophen 650 MG Tab.ER PO SCH ×2 (08:15→19:45)
[2017-12-06] MEDS: Citalopram 20 MG Tab PO SCH (08:15)
[2017-12-06] MEDS: Non-Formulary Medication 1 Each (Metronidazole [Metronidazole 0.75% Cream] 1 APPLIC) TOP SCH (08:56)
[2017-12-06] MEDS: Acetaminophen/HYDROcodone 325-5 MG Tab PO PRN (12:30)
[2017-12-06] MEDS: SEROQUEL 400 MG PO SCH (19:45)
[2017-12-06] MEDS: LORazepam 0.5 MG Tab PO PRN (19:49)
[2017-12-07] MEDS: Acetaminophen 650 MG Tab.ER PO SCH ×2 (08:52→19:34)
[2017-12-07] MEDS: Citalopram 20 MG Tab PO SCH (08:52)
[2017-12-07] MEDS: Non-Formulary Medication 1 Each (Metronidazole [Metronidazole 0.75% Cream] 1 APPLIC) TOP SCH (08:53)
[2017-12-07] MEDS: fentaNYL 50 MCG/HR Transdermal Patch TRDERM SCH (09:54)
[2017-12-07] MEDS: REMOVE FENTANYL TRDERM SCH (09:54)
[2017-12-07] MEDS: Bisacodyl 10 MG Supp RECTAL PRN (10:20)
[2017-12-07] MEDS: Acetaminophen/HYDROcodone 325-5 MG Tab PO PRN (19:34)
[2017-12-07] MEDS: LORazepam 0.5 MG Tab PO PRN (19:34)
[2017-12-07] MEDS: SEROQUEL 400 MG PO SCH (19:34)
[2017-12-08] MEDS: Citalopram 20 MG Tab PO SCH (07:17)
[2017-12-08] MEDS: Non-Formulary Medication 1 Each (Metronidazole [Metronidazole 0.75% Cream] 1 APPLIC) TOP SCH (07:18)
[2017-12-08] MEDS: Acetaminophen 650 MG Tab.ER PO SCH ×2 (07:20→19:26)
[2017-12-08] MEDS: Sennosides 8.6 MG Tab PO SCH (19:26)
[2017-12-08] MEDS: SEROQUEL 400 MG PO SCH (19:27)
[2017-12-08] MEDS: Acetaminophen/HYDROcodone 325-5 MG Tab PO PRN (19:27)
[2017-12-08] MEDS: LORazepam 0.5 MG Tab PO PRN (19:27)
[2017-12-09] MEDS: Citalopram 20 MG Tab PO SCH (08:01)
[2017-12-09] MEDS: Acetaminophen/HYDROcodone 325-5 MG Tab PO PRN ×2 (08:02→19:30)
[2017-12-09] MEDS: Acetaminophen 650 MG Tab.ER PO SCH ×2 (08:11→19:31)
[2017-12-09] MEDS: Sennosides 8.6 MG Tab PO SCH ×2 (08:11→17:46)
[2017-12-09] MEDS: Non-Formulary Medication 1 Each (Metronidazole [Metronidazole 0.75% Cream] 1 APPLIC) TOP SCH (09:50)
[2017-12-09] MEDS ORDERED: Magnesium Hydroxide 400 MG/5 ML Susp 30 ML Cup ONE (15:51)
[2017-12-09] MEDS ORDERED: Sodium Phosphate,Monobasic/Sodium Phosphate,Dibasic Enema 133 ML Bottle RECTAL ONE (15:58)
[2017-12-09] MEDS: LORazepam 0.5 MG Tab PO PRN (19:31)
[2017-12-09] MEDS: SEROQUEL 400 MG PO SCH (19:32)
[2017-12-10] MEDS: REMOVE FENTANYL TRDERM SCH (09:14)
[2017-12-10] MEDS: fentaNYL 50 MCG/HR Transdermal Patch TRDERM SCH (09:15)
[2017-12-10] MEDS: Acetaminophen/HYDROcodone 325-5 MG Tab PO PRN ×3 (09:16→23:14)
[2017-12-10] MEDS: Citalopram 20 MG Tab PO SCH (09:17)
[2017-12-10] MEDS: Acetaminophen 650 MG Tab.ER PO SCH ×2 (09:25→19:15)
[2017-12-10] MEDS: Sennosides 8.6 MG Tab PO SCH ×2 (09:25→17:24)
[2017-12-10] MEDS: Non-Formulary Medication 1 Each (Metronidazole [Metronidazole 0.75% Cream] 1 APPLIC) TOP SCH (09:50)
[2017-12-10] MEDS: SEROQUEL 400 MG PO SCH (19:15)
[2017-12-11] MEDS: Citalopram 20 MG Tab PO SCH (07:38)
[2017-12-11] MEDS: Non-Formulary Medication 1 Each (Metronidazole [Metronidazole 0.75% Cream] 1 APPLIC) TOP SCH (07:39)
[2017-12-11] MEDS: Sennosides 8.6 MG Tab PO SCH ×2 (07:39→17:39)
[2017-12-11] MEDS: Acetaminophen 650 MG Tab.ER PO SCH ×2 (07:40→20:18)
[2017-12-11] MEDS: SEROQUEL 400 MG PO SCH (20:17)
[2017-12-11] MEDS: LORazepam 0.5 MG Tab PO PRN (20:18)
[2017-12-11] MEDS: Acetaminophen/HYDROcodone 325-5 MG Tab PO PRN (20:19)
[2017-12-12] MEDS: Acetaminophen/HYDROcodone 325-5 MG Tab PO PRN ×2 (00:06→19:45)
[2017-12-12] MEDS: Citalopram 20 MG Tab PO SCH (07:51)
[2017-12-12] MEDS: Sennosides 8.6 MG Tab PO SCH ×2 (07:52→18:13)
[2017-12-12] MEDS: Acetaminophen 650 MG Tab.ER PO SCH ×2 (07:52→19:42)
[2017-12-12] MEDS: Non-Formulary Medication 1 Each (Metronidazole [Metronidazole 0.75% Cream] 1 APPLIC) TOP SCH (07:53)
[2017-12-12] MEDS: SEROQUEL 400 MG PO SCH (19:42)
[2017-12-12] MEDS: LORazepam 0.5 MG Tab PO PRN (19:45)
[2017-12-13] MEDS: Sennosides 8.6 MG Tab PO SCH ×2 (08:09→17:39)
[2017-12-13] MEDS: Citalopram 20 MG Tab PO SCH (08:09)
[2017-12-13] MEDS: Acetaminophen 650 MG Tab.ER PO SCH ×2 (08:09→19:23)
[2017-12-13] MEDS: Non-Formulary Medication 1 Each (Metronidazole [Metronidazole 0.75% Cream] 1 APPLIC) TOP SCH (08:13)
[2017-12-13] MEDS: REMOVE FENTANYL TRDERM SCH (09:00)
[2017-12-13] MEDS: fentaNYL 50 MCG/HR Transdermal Patch TRDERM SCH (09:00)
[2017-12-13] MEDS: SEROQUEL 400 MG PO SCH (19:23)
[2017-12-13] MEDS: Acetaminophen/HYDROcodone 325-5 MG Tab PO PRN ×2 (19:23→23:15)
[2017-12-13] MEDS: LORazepam 0.5 MG Tab PO PRN (19:23)
[2017-12-14] MEDS: Citalopram 20 MG Tab PO SCH (07:51)
[2017-12-14] MEDS: Sennosides 8.6 MG Tab PO SCH ×2 (07:52→17:29)
[2017-12-14] MEDS: Non-Formulary Medication 1 Each (Metronidazole [Metronidazole 0.75% Cream] 1 APPLIC) TOP SCH (07:52)
[2017-12-14] MEDS: Acetaminophen 650 MG Tab.ER PO SCH ×2 (07:53→20:10)
[2017-12-14] MEDS: SEROQUEL 400 MG PO SCH (20:10)
[2017-12-14] MEDS: LORazepam 0.5 MG Tab PO PRN (20:11)
[2017-12-14] MEDS: Acetaminophen/HYDROcodone 325-5 MG Tab PO PRN (20:15)
[2017-12-15] MEDS: Acetaminophen/HYDROcodone 325-5 MG Tab PO PRN ×3 (07:30→20:21)
[2017-12-15] MEDS: Acetaminophen 650 MG Tab.ER PO SCH ×2 (08:00→20:21)
[2017-12-15] MEDS: Non-Formulary Medication 1 Each (Metronidazole [Metronidazole 0.75% Cream] 1 APPLIC) TOP SCH (08:00)
[2017-12-15] MEDS: Citalopram 20 MG Tab PO SCH (08:00)
[2017-12-15] MEDS: Sennosides 8.6 MG Tab PO SCH ×2 (08:00→17:55)
[2017-12-15] MEDS: LORazepam 0.5 MG Tab PO PRN (20:21)
[2017-12-15] MEDS: SEROQUEL 400 MG PO SCH (20:22)
[2017-12-16] MEDS: Citalopram 20 MG Tab PO SCH (07:23)
[2017-12-16] MEDS: Non-Formulary Medication 1 Each (Metronidazole [Metronidazole 0.75% Cream] 1 APPLIC) TOP SCH (07:23)
[2017-12-16] MEDS: Acetaminophen 650 MG Tab.ER PO SCH ×2 (07:23→19:30)
[2017-12-16] MEDS: Sennosides 8.6 MG Tab PO SCH ×2 (07:23→17:04)
[2017-12-16] MEDS: Acetaminophen/HYDROcodone 325-5 MG Tab PO PRN ×3 (07:30→19:30)
[2017-12-16] MEDS: REMOVE FENTANYL TRDERM SCH (08:00)
[2017-12-16] MEDS: fentaNYL 50 MCG/HR Transdermal Patch TRDERM SCH ×2 (09:19→09:39)
[2017-12-16] MEDS: LORazepam 0.5 MG Tab PO PRN (12:30)
[2017-12-16] MEDS: SEROQUEL 400 MG PO SCH (19:30)
[2017-12-17] MEDS: Bisacodyl 10 MG Supp RECTAL PRN (05:15)
[2017-12-17] MEDS: Non-Formulary Medication 1 Each (Metronidazole [Metronidazole 0.75% Cream] 1 APPLIC) TOP SCH (07:38)
[2017-12-17] MEDS: Citalopram 20 MG Tab PO SCH (07:38)
[2017-12-17] MEDS: Acetaminophen 650 MG Tab.ER PO SCH ×2 (07:39→19:46)
[2017-12-17] MEDS: Sennosides 8.6 MG Tab PO SCH ×2 (07:39→19:46)
[2017-12-17] MEDS ORDERED: Magnesium Hydroxide 400 MG/5 ML Susp 30 ML Cup ONE (10:01)
--- NOTE | 2017-12-17 11:43 | PCM.PN ---
- General Info Date of Service: 12/17/17 Functional Status: Reports: Pain Controlled, Tolerating Diet - Review of Systems General: Reports: Weakness HEENT: Reports: No Symptoms Pulmonary: Reports: No Symptoms Cardiovascular: Reports: No Symptoms Gastrointestinal: Reports: No Symptoms Genitourinary: Reports: Incontinence Neurological: Reports: Confusion, Weakness - Patient Data Vitals - Most Recent: Last Vital Signs Temp 36.9 C 11/21/17 09:30 Pulse 79 11/21/17 09:30 Resp 14 11/21/17 09:30 BP 88/51 L 11/21/17 09:30 Pulse Ox 94 L 11/21/17 09:30 Weight - Most Recent: 59.874 kg I&O - Last 24 Hours: Intake & Output 12/16/17 12/17/17 12/17/17 22:59 06:59 14:59 Output Total 250 Balance -250 Med Orders - Current: Current Medications Acetaminophen (Tylenol Arthritis Pain) 650 mg PO BID [facility] Last Admin: 12/17/17 07:39 Dose: 650 mg Hydrocodone Bitart/Acetaminophen ([place] 325-5 Mg) 1 tab PO Q4H PRN PRN Reason: MODERATE PAIN Last Admin: 12/16/17 19:30 Dose: 1 tab Bisacodyl (Dulcolax) 10 mg RECTAL DAILY PRN PRN Reason: CONSTIPATION Last Admin: 12/17/17 05:15 Dose: 10 mg Citalopram Hydrobromide (Celexa) 20 mg PO DAILY [facility] Last Admin: 12/17/17 07:38 Dose: 20 mg Fentanyl (Duragesic) 50 mcg TRDERM Q72H [facility] Last Admin: 12/16/17 09:39 Dose: Not Given Loperamide HCl (Imodium) 2 mg PO Q4H PRN PRN Reason: DIARRHEA Lorazepam (Ativan) 0.5 mg PO Q8H PRN PRN Reason: ANXIETY Last Admin: 12/16/17 12:30 Dose: 0.5 mg Lorazepam (Ativan) 1 mg IM Q4H PRN PRN Reason: Agitation Last Admin: 11/10/17 19:54 Dose: 1 mg Miscellaneous Information (Remove Patch) 1 ea TRDERM Q72H [facility] Last Admin: 12/16/17 08:00 Dose: 1 ea Morphine Sulfate (Morphine) 2 mg SUBCUT Q4H PRN PRN Reason: PAIN Last Admin: 11/11/17 19:15 Dose: 2 mg Seroquel 400mg (Tablets) 1 each PO BEDTIME [facility] Last Admin: 12/16/17 19:30 Dose: 1 each Non-Formulary Medication (Metronidazole [Metronidazole 0.75% Cream]) 1 applic TOP DAILY [facility] Last Admin: 12/17/17 07:38 Dose: 1 applic Quetiapine Fumarate (Seroquel) 50 mg PO BEDTIME [facility] Last Admin: 12/16/17 19:30 Dose: 50 mg Quetiapine Fumarate (Seroquel) 200 mg PO DAILY@0800,1200 [facility] Last Admin: 12/17/17 07:39 Dose: 200 mg Quetiapine Fumarate (Seroquel) 50 mg PO DAILY@0800,1200 [facility] Last Admin: 12/17/17 07:40 Dose: 50 mg Scopolamine (Transderm-Scop) 1.5 mg TOP Q72H PRN PRN Reason: SECRETIONS Senna (Senna) 8.6 mg PO BID@0800,1700 [facility] Last Admin: 12/17/17 07:39 Dose: 8.6 mg Discontinued Medications Acetaminophen (Tylenol) 650 mg PO BID [facility] Last Admin: 10/19/17 07:20 Dose: 650 mg Ciprofloxacin (Ciprofloxacin Hcl) 250 mg PO BID [facility] Stop: 12/04/17 20:01 Last Admin: 12/04/17 20:30 Dose: Not Given Fentanyl (Duragesic) 25 mcg TRDERM Q72H [facility] Last Admin: 12/01/17 08:00 Dose: 25 mcg Fentanyl (Duragesic) 12 mcg TRDERM Q72H [facility] Last Admin: 12/01/17 08:00 Dose: 12 mcg Fentanyl (Duragesic) 12 mcg TRDERM Q72H [facility] Last Admin: 12/03/17 20:20 Dose: Not Given Fentanyl (Duragesic) 25 mcg TRDERM ONETIME ONE Stop: 12/02/17 18:31 Last Admin: 12/02/17 18:37 Dose: 25 mcg Fentanyl (Duragesic) 50 mcg TRDERM Q72H [facility] Last Admin: 12/04/17 11:45 Dose: Not Given Fentanyl (Duragesic) 50 mcg TRDERM Q72H [facility] Last Admin: 12/16/17 09:19 Dose: 50 mcg Lorazepam (Ativan) Confirm Administered Dose 2 mg .ROUTE .STK-MED ONE Stop: 10/10/17 19:54 Last Admin: 10/10/17 20:02 Dose: 2 mg Magnesium Hydroxide (Milk Of Magnesia) Confirm Administered Dose 30 ml .ROUTE .STK-MED ONE Stop: 12/09/17 15:52 Last Admin: 12/09/17 15:59 Dose: 30 ml Magnesium Hydroxide (Milk Of Magnesia) Confirm Administered Dose 30 ml .ROUTE .STK-MED ONE Stop: 12/17/17 10:02 Last Admin: 12/17/17 10:11 Dose: 30 ml Miscellaneous Information (Remove Patch) 1 ea TRDERM Q72H [facility] Last Admin: 12/01/17 08:00 Dose: 1 ea Senna/Docusate Sodium (Senna Plus) 1 tab PO BID@0800,1700 [facility] Last Admin: 12/08/17 07:19 Dose: 1 tab Sodium Biphosphate/Sodium Phosphate (Fleet Enema) 133 ml RECTAL ONETIME ONE Stop: 12/09/17 15:59 Last Admin: 12/09/17 16:25 Dose: 1 bottle - Exam General: Obtunded HEENT: Pupils Equal, Pupils Reactive Lungs: Clear to Auscultation, Normal Respiratory Effort Cardiovascular: Regular Rate, Regular Rhythm GI/Abdominal Exam: Normal Bowel Sounds, Soft, Non-Tender Extremities: Normal Inspection Peripheral Pulses: 2+: Dorsalis Pedis (L), Dorsalis Pedis (R) Skin: Warm, Dry, Intact Neurological: No New Focal Deficit - Problem List & Annotations (1) Comfort measures only status SNOMED Code(s): 79122875966620 Code(s): Z51.5 - ENCOUNTER FOR PALLIATIVE CARE Status: Chronic Priority: High Current Visit: Yes (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 Code(s): F03.91 - UNSPECIFIED DEMENTIA WITH BEHAVIORAL DISTURBANCE Status: Chronic Priority: High Current Visit: Yes Qualifiers: Dementia behavioral disturbance: with behavioral disturbance Qualified Code (s): F02.81 - Dementia in other diseases classified elsewhere with behavioral disturbance (3) Diabetes mellitus SNOMED Code(s): 86598161 Code(s): E11.9 - TYPE 2 DIABETES MELLITUS WITHOUT COMPLICATIONS Status: Chronic Priority: Medium Current Visit: Yes Qualifiers: Diabetes mellitus type: type 2 Diabetes mellitus residential insulin use: without termite control servicer use Diabetes mellitus complication status: with hyperglycemia Qualified Code(s): E11.65 - Type 2 diabetes mellitus with hyperglycemia (4) Incontinence overflow, urine SNOMED Code(s): 601784874 Code(s): N39.490 - OVERFLOW INCONTINENCE Status: Chronic Priority: Medium Current Visit: Yes (5) Neurogenic bladder SNOMED Code(s): 184030434 Code(s): N31.9 - NEUROMUSCULAR DYSFUNCTION OF BLADDER, UNSPECIFIED Status: Chronic Priority: Medium Current Visit: Yes (6) Palliative care patient SNOMED Code(s): 288316098 Code(s): Z51.5 - ENCOUNTER FOR PALLIATIVE CARE Status: Chronic Priority: High Current Visit: Yes (7) Paranoid schizophrenia, chronic condition SNOMED Code(s): 21213008 Code(s): F20.0 - PARANOID SCHIZOPHRENIA Status: Chronic Priority: High Current Visit: Yes - Problem List Review Problem List Initiated/Reviewed/Updated: Yes - Plan Plan:: Patient to continue current diet and management. No changes to supportive care. We will also continue to monitor for any bed sores. Patient resting well and is very stable. 11/09/17 No changes to status at this time. Patient is resting comfortably. He does eat with help from nursing staff. 12/17/17 Patient stable and continues on comfort cares. No changes to medications or status. Continue current diet and monitoring.
[2017-12-17] MEDS: SEROQUEL 400 MG PO SCH (19:47)
[2017-12-17] MEDS: Acetaminophen/HYDROcodone 325-5 MG Tab PO PRN (19:47)
[2017-12-17] MEDS: LORazepam 0.5 MG Tab PO PRN (19:47)
[2017-12-18] MEDS: Citalopram 20 MG Tab PO SCH (08:47)
[2017-12-18] MEDS: Acetaminophen/HYDROcodone 325-5 MG Tab PO PRN ×2 (08:48→19:02)
[2017-12-18] MEDS: Acetaminophen 650 MG Tab.ER PO SCH ×2 (08:50→19:02)
[2017-12-18] MEDS: Sennosides 8.6 MG Tab PO SCH (08:51)
[2017-12-18] MEDS: Non-Formulary Medication 1 Each (Metronidazole [Metronidazole 0.75% Cream] 1 APPLIC) TOP SCH (10:20)
[2017-12-18] MEDS ORDERED: SENNOSIDES PO SCH (17:00)
[2017-12-18] MEDS ORDERED: DOCUSATE PO SCH (17:00)
[2017-12-18] MEDS: SENNOSIDES PO SCH (17:50)
[2017-12-18] MEDS: DOCUSATE PO SCH (17:50)
[2017-12-18] MEDS: LORazepam 0.5 MG Tab PO PRN (19:02)
[2017-12-18] MEDS: SEROQUEL 400 MG PO SCH (19:02)
[2017-12-18] MEDS ORDERED: MAGNESIUM HYDROXIDE 400 MG/5 ML PO SCH (20:00)
[2017-12-19] MEDS: Citalopram 20 MG Tab PO SCH (10:38)
[2017-12-19] MEDS: Acetaminophen/HYDROcodone 325-5 MG Tab PO PRN ×2 (10:38→19:36)
[2017-12-19] MEDS: Acetaminophen 650 MG Tab.ER PO SCH ×2 (10:41→19:36)
[2017-12-19] MEDS: SENNOSIDES PO SCH ×2 (10:42→17:19)
[2017-12-19] MEDS: DOCUSATE PO SCH ×2 (10:42→17:19)
[2017-12-19] MEDS: Non-Formulary Medication 1 Each (Metronidazole [Metronidazole 0.75% Cream] 1 APPLIC) TOP SCH (10:45)
[2017-12-19] MEDS: fentaNYL 50 MCG/HR Transdermal Patch TRDERM SCH (12:00)
[2017-12-19] MEDS: REMOVE FENTANYL TRDERM SCH (12:00)
[2017-12-19] MEDS: LORazepam 0.5 MG Tab PO PRN (19:36)
[2017-12-19] MEDS: SEROQUEL 400 MG PO SCH (19:36)
[2017-12-20] MEDS ORDERED: MAGNESIUM HYDROXIDE 400 MG/5 ML PO SCH (08:00)
[2017-12-20] MEDS: Acetaminophen/HYDROcodone 325-5 MG Tab PO PRN ×2 (09:56→20:00)
[2017-12-20] MEDS: Citalopram 20 MG Tab PO SCH (09:58)
[2017-12-20] MEDS: SENNOSIDES PO SCH ×2 (10:00→18:16)
[2017-12-20] MEDS: DOCUSATE PO SCH ×2 (10:00→18:16)
[2017-12-20] MEDS: Acetaminophen 650 MG Tab.ER PO SCH ×2 (10:01→20:00)
[2017-12-20] MEDS: Non-Formulary Medication 1 Each (Metronidazole [Metronidazole 0.75% Cream] 1 APPLIC) TOP SCH (10:43)
[2017-12-20] MEDS: SEROQUEL 400 MG PO SCH (20:00)
[2017-12-20] MEDS: LORazepam 0.5 MG Tab PO PRN (20:00)
[2017-12-21] MEDS: Non-Formulary Medication 1 Each (Metronidazole [Metronidazole 0.75% Cream] 1 APPLIC) TOP SCH (08:02)
[2017-12-21] MEDS: Citalopram 20 MG Tab PO SCH (08:02)
[2017-12-21] MEDS: SENNOSIDES PO SCH ×2 (08:03→17:28)
[2017-12-21] MEDS: DOCUSATE PO SCH ×2 (08:03→17:28)
[2017-12-21] MEDS: Acetaminophen 650 MG Tab.ER PO SCH ×2 (08:03→20:30)
[2017-12-21] MEDS: Acetaminophen/HYDROcodone 325-5 MG Tab PO PRN (20:30)
[2017-12-21] MEDS: Magnesium Hydroxide 400 MG/5 ML Susp 30 ML Cup PO SCH (20:30)
[2017-12-21] MEDS: SEROQUEL 400 MG PO SCH (20:30)
[2017-12-21] MEDS: LORazepam 0.5 MG Tab PO PRN (20:30)
[2017-12-22] MEDS: SENNOSIDES PO SCH ×2 (08:24→17:17)
[2017-12-22] MEDS: Citalopram 20 MG Tab PO SCH (08:24)
[2017-12-22] MEDS: DOCUSATE PO SCH ×2 (08:24→17:17)
[2017-12-22] MEDS: Acetaminophen 650 MG Tab.ER PO SCH ×2 (08:25→20:52)
[2017-12-22] MEDS: Non-Formulary Medication 1 Each (Metronidazole [Metronidazole 0.75% Cream] 1 APPLIC) TOP SCH (08:25)
[2017-12-22] MEDS: fentaNYL 50 MCG/HR Transdermal Patch TRDERM SCH (08:29)
[2017-12-22] MEDS: REMOVE FENTANYL TRDERM SCH (08:32)
[2017-12-22] MEDS: Acetaminophen/HYDROcodone 325-5 MG Tab PO PRN ×2 (09:47→20:59)
[2017-12-22] MEDS: Magnesium Hydroxide 400 MG/5 ML Susp 30 ML Cup PO SCH (10:59)
[2017-12-22] MEDS: SEROQUEL 400 MG PO SCH (20:52)
[2017-12-22] MEDS: LORazepam 0.5 MG Tab PO PRN (20:59)
[2017-12-23] MEDS: Citalopram 20 MG Tab PO SCH (08:06)
[2017-12-23] MEDS: SENNOSIDES PO SCH ×2 (08:07→17:18)
[2017-12-23] MEDS: DOCUSATE PO SCH ×2 (08:07→17:18)
[2017-12-23] MEDS: Acetaminophen 650 MG Tab.ER PO SCH ×2 (08:07→20:48)
[2017-12-23] MEDS: Non-Formulary Medication 1 Each (Metronidazole [Metronidazole 0.75% Cream] 1 APPLIC) TOP SCH (08:08)
[2017-12-23] MEDS: Magnesium Hydroxide 400 MG/5 ML Susp 30 ML Cup PO SCH (08:12)
[2017-12-23] MEDS: LORazepam 0.5 MG Tab PO PRN (20:47)
[2017-12-23] MEDS: Acetaminophen/HYDROcodone 325-5 MG Tab PO PRN (20:48)
[2017-12-23] MEDS: SEROQUEL 400 MG PO SCH (20:48)
[2017-12-24] MEDS: Acetaminophen 650 MG Tab.ER PO SCH ×2 (07:26→19:54)
[2017-12-24] MEDS: Citalopram 20 MG Tab PO SCH (07:27)
[2017-12-24] MEDS: SENNOSIDES PO SCH ×2 (07:27→19:54)
[2017-12-24] MEDS: Non-Formulary Medication 1 Each (Metronidazole [Metronidazole 0.75% Cream] 1 APPLIC) TOP SCH (07:27)
[2017-12-24] MEDS: DOCUSATE PO SCH ×2 (07:27→19:54)
[2017-12-24] MEDS: Magnesium Hydroxide 400 MG/5 ML Susp 30 ML Cup PO SCH (07:27)
[2017-12-24] MEDS: SEROQUEL 400 MG PO SCH (19:54)
[2017-12-24] MEDS: LORazepam 0.5 MG Tab PO PRN (20:03)
[2017-12-25] MEDS: Magnesium Hydroxide 400 MG/5 ML Susp 30 ML Cup PO SCH (08:45)
[2017-12-25] MEDS: SENNOSIDES PO SCH ×2 (08:45→18:15)
[2017-12-25] MEDS: Citalopram 20 MG Tab PO SCH (08:45)
[2017-12-25] MEDS: DOCUSATE PO SCH ×2 (08:45→18:15)
[2017-12-25] MEDS: Acetaminophen 650 MG Tab.ER PO SCH ×2 (08:45→20:34)
[2017-12-25] MEDS: Non-Formulary Medication 1 Each (Metronidazole [Metronidazole 0.75% Cream] 1 APPLIC) TOP SCH (09:10)
[2017-12-25] MEDS: REMOVE FENTANYL TRDERM SCH (09:15)
[2017-12-25] MEDS: fentaNYL 50 MCG/HR Transdermal Patch TRDERM SCH (09:15)
[2017-12-25] MEDS: Acetaminophen/HYDROcodone 325-5 MG Tab PO PRN (12:45)
[2017-12-25] MEDS: LORazepam 0.5 MG Tab PO PRN (12:45)
[2017-12-25] MEDS: SEROQUEL 400 MG PO SCH (20:34)
[2017-12-26] MEDS: SENNOSIDES PO SCH ×2 (08:30→17:03)
[2017-12-26] MEDS: Magnesium Hydroxide 400 MG/5 ML Susp 30 ML Cup PO SCH (08:30)
[2017-12-26] MEDS: DOCUSATE PO SCH ×2 (08:30→17:03)
[2017-12-26] MEDS: Acetaminophen 650 MG Tab.ER PO SCH ×2 (08:30→19:17)
[2017-12-26] MEDS: Citalopram 20 MG Tab PO SCH (08:30)
[2017-12-26] MEDS: Non-Formulary Medication 1 Each (Metronidazole [Metronidazole 0.75% Cream] 1 APPLIC) TOP SCH (09:00)
[2017-12-26] MEDS: SEROQUEL 400 MG PO SCH (19:16)
[2017-12-27] MEDS: Citalopram 20 MG Tab PO SCH (09:12)
[2017-12-27] MEDS: Non-Formulary Medication 1 Each (Metronidazole [Metronidazole 0.75% Cream] 1 APPLIC) TOP SCH (09:12)
[2017-12-27] MEDS: DOCUSATE PO SCH ×2 (09:13→14:30)
[2017-12-27] MEDS: SENNOSIDES PO SCH ×2 (09:13→14:30)
[2017-12-27] MEDS: Magnesium Hydroxide 400 MG/5 ML Susp 30 ML Cup PO SCH (09:13)
[2017-12-27] MEDS: Acetaminophen 650 MG Tab.ER PO SCH ×2 (09:13→19:29)
[2017-12-27] MEDS: Acetaminophen/HYDROcodone 325-5 MG Tab PO PRN (09:14)
[2017-12-27] MEDS: LORazepam 0.5 MG Tab PO PRN (09:14)
[2017-12-27] MEDS: SEROQUEL 400 MG PO SCH (19:30)
[2017-12-28] MEDS: Citalopram 20 MG Tab PO SCH (07:41)
[2017-12-28] MEDS: Acetaminophen 650 MG Tab.ER PO SCH ×2 (07:41→19:09)
[2017-12-28] MEDS: DOCUSATE PO SCH ×2 (07:41→17:17)
[2017-12-28] MEDS: SENNOSIDES PO SCH ×2 (07:41→17:17)
[2017-12-28] MEDS: Non-Formulary Medication 1 Each (Metronidazole [Metronidazole 0.75% Cream] 1 APPLIC) TOP SCH (07:42)
[2017-12-28] MEDS: fentaNYL 50 MCG/HR Transdermal Patch TRDERM SCH (07:45)
[2017-12-28] MEDS: REMOVE FENTANYL TRDERM SCH (07:49)
[2017-12-28] MEDS: Magnesium Hydroxide 400 MG/5 ML Susp 30 ML Cup PO SCH (09:22)
[2017-12-28] MEDS: Acetaminophen/HYDROcodone 325-5 MG Tab PO PRN ×2 (10:51→19:10)
[2017-12-28] MEDS: SEROQUEL 400 MG PO SCH (19:09)
[2017-12-29] MEDS: LORazepam 0.5 MG Tab PO PRN (20:10)
[2017-12-29] MEDS: SEROQUEL 400 MG PO SCH (20:10)
[2017-12-29] MEDS: Acetaminophen 650 MG Tab.ER PO SCH ×2 (20:10→20:19)
[2017-12-29] MEDS: Citalopram 20 MG Tab PO SCH (20:15)
[2017-12-29] MEDS: Non-Formulary Medication 1 Each (Metronidazole [Metronidazole 0.75% Cream] 1 APPLIC) TOP SCH (20:16)
[2017-12-29] MEDS: Magnesium Hydroxide 400 MG/5 ML Susp 30 ML Cup PO SCH (20:17)
[2017-12-29] MEDS: SENNOSIDES PO SCH (20:17)
[2017-12-29] MEDS: DOCUSATE PO SCH (20:17)
[2017-12-29] MEDS: Acetaminophen/HYDROcodone 325-5 MG Tab PO PRN (23:45)
[2017-12-30] MEDS: Magnesium Hydroxide 400 MG/5 ML Susp 30 ML Cup PO SCH (08:00)
[2017-12-30] MEDS: Citalopram 20 MG Tab PO SCH (08:01)
[2017-12-30] MEDS: SENNOSIDES PO SCH ×2 (08:01→17:21)
[2017-12-30] MEDS: Acetaminophen 650 MG Tab.ER PO SCH ×2 (08:01→19:21)
[2017-12-30] MEDS: DOCUSATE PO SCH ×2 (08:01→17:21)
[2017-12-30] MEDS: Non-Formulary Medication 1 Each (Metronidazole [Metronidazole 0.75% Cream] 1 APPLIC) TOP SCH (08:02)
[2017-12-30] MEDS: Acetaminophen/HYDROcodone 325-5 MG Tab PO PRN (19:14)
[2017-12-30] MEDS: SEROQUEL 400 MG PO SCH (19:20)
[2017-12-31] MEDS: SENNOSIDES PO SCH ×2 (07:33→17:29)
[2017-12-31] MEDS: DOCUSATE PO SCH ×2 (07:33→17:29)
[2017-12-31] MEDS: REMOVE FENTANYL TRDERM SCH (07:33)
[2017-12-31] MEDS: Citalopram 20 MG Tab PO SCH (07:33)
[2017-12-31] MEDS: Acetaminophen 650 MG Tab.ER PO SCH ×2 (07:33→19:32)
[2017-12-31] MEDS: fentaNYL 50 MCG/HR Transdermal Patch TRDERM SCH (07:34)
[2017-12-31] MEDS: Acetaminophen/HYDROcodone 325-5 MG Tab PO PRN ×2 (07:37→19:30)
[2017-12-31] MEDS: Non-Formulary Medication 1 Each (Metronidazole [Metronidazole 0.75% Cream] 1 APPLIC) TOP SCH (08:09)
[2017-12-31] MEDS: Magnesium Hydroxide 400 MG/5 ML Susp 30 ML Cup PO SCH (09:00)
[2017-12-31] MEDS: SEROQUEL 400 MG PO SCH (19:30)
[2017-12-31] MEDS: LORazepam 0.5 MG Tab PO PRN (19:31)
[2018-01-01] MEDS: Citalopram 20 MG Tab PO SCH (09:35)
[2018-01-01] MEDS: Non-Formulary Medication 1 Each (Metronidazole [Metronidazole 0.75% Cream] 1 APPLIC) TOP SCH (09:35)
[2018-01-01] MEDS: Magnesium Hydroxide 400 MG/5 ML Susp 30 ML Cup PO SCH (09:35)
[2018-01-01] MEDS: SENNOSIDES PO SCH ×2 (09:36→17:11)
[2018-01-01] MEDS: DOCUSATE PO SCH ×2 (09:36→17:11)
[2018-01-01] MEDS: Acetaminophen 650 MG Tab.ER PO SCH ×2 (09:37→20:53)
[2018-01-01] MEDS: LORazepam 0.5 MG Tab PO PRN (20:52)
[2018-01-01] MEDS: SEROQUEL 400 MG PO SCH (20:52)
[2018-01-01] MEDS: Acetaminophen/HYDROcodone 325-5 MG Tab PO PRN (20:53)
[2018-01-02] MEDS: SENNOSIDES PO SCH ×2 (07:42→17:40)
[2018-01-02] MEDS: DOCUSATE PO SCH ×2 (07:42→17:40)
[2018-01-02] MEDS: Citalopram 20 MG Tab PO SCH (07:42)
[2018-01-02] MEDS: Magnesium Hydroxide 400 MG/5 ML Susp 30 ML Cup PO SCH (07:43)
[2018-01-02] MEDS: Acetaminophen 650 MG Tab.ER PO SCH ×2 (07:43→20:54)
[2018-01-02] MEDS: Non-Formulary Medication 1 Each (Metronidazole [Metronidazole 0.75% Cream] 1 APPLIC) TOP SCH (07:43)
[2018-01-02] MEDS: LORazepam 0.5 MG Tab PO PRN (20:53)
[2018-01-02] MEDS: SEROQUEL 400 MG PO SCH (20:54)
[2018-01-02] MEDS: Acetaminophen/HYDROcodone 325-5 MG Tab PO PRN (20:55)
[2018-01-03] MEDS: Acetaminophen/HYDROcodone 325-5 MG Tab PO PRN ×2 (03:46→21:37)
[2018-01-03] MEDS: Non-Formulary Medication 1 Each (Metronidazole [Metronidazole 0.75% Cream] 1 APPLIC) TOP SCH (08:24)
[2018-01-03] MEDS: Citalopram 20 MG Tab PO SCH (08:24)
[2018-01-03] MEDS: Acetaminophen 650 MG Tab.ER PO SCH ×2 (08:25→20:10)
[2018-01-03] MEDS: fentaNYL 50 MCG/HR Transdermal Patch TRDERM SCH (08:25)
[2018-01-03] MEDS: SENNOSIDES PO SCH ×2 (08:25→18:26)
[2018-01-03] MEDS: REMOVE FENTANYL TRDERM SCH (08:25)
[2018-01-03] MEDS: Magnesium Hydroxide 400 MG/5 ML Susp 30 ML Cup PO SCH (08:25)
[2018-01-03] MEDS: DOCUSATE PO SCH ×2 (08:25→18:26)
[2018-01-03] MEDS: SEROQUEL 400 MG PO SCH (20:10)
[2018-01-03] MEDS: LORazepam 0.5 MG Tab PO PRN (21:36)
[2018-01-04] MEDS: Citalopram 20 MG Tab PO SCH (07:35)
[2018-01-04] MEDS: Non-Formulary Medication 1 Each (Metronidazole [Metronidazole 0.75% Cream] 1 APPLIC) TOP SCH (07:35)
[2018-01-04] MEDS: Acetaminophen 650 MG Tab.ER PO SCH ×2 (07:36→20:35)
[2018-01-04] MEDS: DOCUSATE PO SCH ×2 (07:36→17:26)
[2018-01-04] MEDS: Acetaminophen/HYDROcodone 325-5 MG Tab PO PRN ×2 (07:36→20:35)
[2018-01-04] MEDS: SENNOSIDES PO SCH ×2 (07:36→17:26)
[2018-01-04] MEDS: Magnesium Hydroxide 400 MG/5 ML Susp 30 ML Cup PO SCH (07:36)
--- NOTE | 2018-01-04 10:10 | PCM.PN ---
- General Info Date of Service: 01/04/18 Subjective Update: Patient is an 87yo M in respite care. He has been stable with no changes. He is alert mainly in the transportation officer and able to express his wishes occasionally. He does eat but does require nursing care for feeding. Patient responds to stimulus but communication has been difficult and he will not answer questions. He does sometimes answer what specific food he would like on a good day. He appears stable and in no discomfort. Functional Status: Reports: Pain Controlled, Tolerating Diet - Review of Systems General: Reports: Weakness, Other (unable to obtain full ROS.) - Patient Data Vitals - Most Recent: Last Vital Signs Temp 36.7 C 12/26/17 10:00 Pulse 84 12/26/17 10:00 Resp 14 12/26/17 10:00 BP 113/83 12/26/17 10:00 Pulse Ox 96 12/26/17 10:00 Weight - Most Recent: 59.874 kg Med Orders - Current: Current Medications Acetaminophen (Tylenol Arthritis Pain) 650 mg PO BID [facility] Last Admin: 01/04/18 07:36 Dose: 650 mg Hydrocodone Bitart/Acetaminophen ([place] 325-5 Mg) 1 tab PO Q4H PRN PRN Reason: MODERATE PAIN Last Admin: 01/04/18 07:36 Dose: 1 tab Bisacodyl (Dulcolax) 10 mg RECTAL DAILY PRN PRN Reason: CONSTIPATION Last Admin: 12/17/17 05:15 Dose: 10 mg Citalopram Hydrobromide (Celexa) 20 mg PO DAILY [facility] Last Admin: 01/04/18 07:35 Dose: 20 mg Fentanyl (Duragesic) 50 mcg TRDERM Q72H [facility] Last Admin: 01/03/18 08:25 Dose: 50 mcg Loperamide HCl (Imodium) 2 mg PO Q4H PRN PRN Reason: DIARRHEA Lorazepam (Ativan) 0.5 mg PO Q8H PRN PRN Reason: ANXIETY Last Admin: 01/03/18 21:36 Dose: 0.5 mg Lorazepam (Ativan) 1 mg IM Q4H PRN PRN Reason: Agitation Last Admin: 11/10/17 19:54 Dose: 1 mg Magnesium Hydroxide (Milk Of Magnesia) 30 ml PO DAILY [facility] Last Admin: 01/04/18 07:36 Dose: 30 ml Miscellaneous Information (Remove Patch) 1 ea TRDERM Q72H [facility] Last Admin: 01/03/18 08:25 Dose: 1 ea Morphine Sulfate (Morphine) 2 mg SUBCUT Q4H PRN PRN Reason: PAIN Last Admin: 11/11/17 19:15 Dose: 2 mg Seroquel 400mg (Tablets) 1 each PO BEDTIME [facility] Last Admin: 01/03/18 20:10 Dose: 1 each Non-Formulary Medication (Metronidazole [Metronidazole 0.75% Cream]) 1 applic TOP DAILY [facility] Last Admin: 01/04/18 07:35 Dose: 1 applic Quetiapine Fumarate (Seroquel) 50 mg PO BEDTIME [facility] Last Admin: 01/03/18 20:10 Dose: 50 mg Quetiapine Fumarate (Seroquel) 200 mg PO DAILY@0800,1200 [facility] Last Admin: 01/04/18 07:36 Dose: 200 mg Quetiapine Fumarate (Seroquel) 50 mg PO DAILY@0800,1200 [facility] Last Admin: 01/04/18 07:36 Dose: 50 mg Scopolamine (Transderm-Scop) 1.5 mg TOP Q72H PRN PRN Reason: SECRETIONS Senna/Docusate Sodium (Senna Plus) 1 tab PO BID@0800,1700 [facility] Last Admin: 01/04/18 07:36 Dose: 1 tab Discontinued Medications Acetaminophen (Tylenol) 650 mg PO BID [facility] Last Admin: 10/19/17 07:20 Dose: 650 mg Ciprofloxacin (Ciprofloxacin Hcl) 250 mg PO BID [facility] Stop: 12/04/17 20:01 Last Admin: 12/04/17 20:30 Dose: Not Given Fentanyl (Duragesic) 25 mcg TRDERM Q72H [facility] Last Admin: 12/01/17 08:00 Dose: 25 mcg Fentanyl (Duragesic) 12 mcg TRDERM Q72H [facility] Last Admin: 12/01/17 08:00 Dose: 12 mcg Fentanyl (Duragesic) 12 mcg TRDERM Q72H [facility] Last Admin: 12/03/17 20:20 Dose: Not Given Fentanyl (Duragesic) 25 mcg TRDERM ONETIME ONE Stop: 12/02/17 18:31 Last Admin: 12/02/17 18:37 Dose: 25 mcg Fentanyl (Duragesic) 50 mcg TRDERM Q72H [facility] Last Admin: 12/04/17 11:45 Dose: Not Given Fentanyl (Duragesic) 50 mcg TRDERM Q72H [facility] Last Admin: 12/16/17 09:19 Dose: 50 mcg Lorazepam (Ativan) Confirm Administered Dose 2 mg .ROUTE .STK-MED ONE Stop: 10/10/17 19:54 Last Admin: 10/10/17 20:02 Dose: 2 mg Magnesium Hydroxide (Milk Of Magnesia) Confirm Administered Dose 30 ml .ROUTE .STK-MED ONE Stop: 12/09/17 15:52 Last Admin: 12/09/17 15:59 Dose: 30 ml Magnesium Hydroxide (Milk Of Magnesia) Confirm Administered Dose 30 ml .ROUTE .STK-MED ONE Stop: 12/17/17 10:02 Last Admin: 12/17/17 10:11 Dose: 30 ml Magnesium Hydroxide (Milk Of Magnesia) 30 ml PO BEDTIME [facility] Last Admin: 12/20/17 00:06 Dose: Not Given Magnesium Hydroxide (Milk Of Magnesia) 30 ml PO DAILY@0800 [facility] Last Admin: 12/20/17 10:13 Dose: 30 ml Miscellaneous Information (Remove Patch) 1 ea TRDERM Q72H [facility] Last Admin: 12/01/17 08:00 Dose: 1 ea Senna (Senna) 8.6 mg PO BID@0800,1700 [facility] Last Admin: 12/18/17 08:51 Dose: 8.6 mg Senna/Docusate Sodium (Senna Plus) 1 tab PO BID@0800,1700 [facility] Last Admin: 12/08/17 07:19 Dose: 1 tab Senna/Docusate Sodium (Senna Plus) 1 tab PO BID [facility] Sodium Biphosphate/Sodium Phosphate (Fleet Enema) 133 ml RECTAL ONETIME ONE Stop: 12/09/17 15:59 Last Admin: 12/09/17 16:25 Dose: 1 bottle - Exam General: Other (unable to obtain full exam). 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 Code(s): F03.91 - UNSPECIFIED DEMENTIA WITH BEHAVIORAL DISTURBANCE Status: Chronic Priority: High Current Visit: Yes Qualifiers: Dementia behavioral disturbance: with behavioral disturbance Qualified Code (s): F02.81 - Dementia in other diseases classified elsewhere with behavioral disturbance (3) Diabetes mellitus SNOMED Code(s): 29880523 Code(s): E11.9 - TYPE 2 DIABETES MELLITUS WITHOUT COMPLICATIONS Status: Chronic Priority: Medium Current Visit: Yes Qualifiers: Diabetes mellitus type: type 2 Diabetes mellitus tank terminal gauger insulin use: without prison use Diabetes mellitus complication status: with hyperglycemia Qualified Code(s): E11.65 - Type 2 diabetes mellitus with hyperglycemia (4) Incontinence overflow, urine SNOMED Code(s): 690928196 Code(s): N39.490 - OVERFLOW INCONTINENCE Status: Chronic Priority: Medium Current Visit: Yes (5) Neurogenic bladder SNOMED Code(s): 486207323 Code(s): N31.9 - NEUROMUSCULAR DYSFUNCTION OF BLADDER, UNSPECIFIED Status: Chronic Priority: Medium Current Visit: Yes (6) Palliative care patient SNOMED Code(s): 795680973 Code(s): Z51.5 - ENCOUNTER FOR PALLIATIVE CARE Status: Chronic Priority: High Current Visit: Yes (7) Paranoid schizophrenia, chronic condition SNOMED Code(s): 83401638 Code(s): F20.0 - PARANOID SCHIZOPHRENIA Status: Chronic Priority: High Current Visit: Yes - Problem List Review Problem List Initiated/Reviewed/Updated: Yes - Plan Plan:: Patient to continue current diet and management. No changes to supportive care. We will also continue to monitor for any bed sores. Patient resting well and is very stable. 11/09/17 No changes to status at this time. Patient is resting comfortably. He does eat with help from nursing staff. 12/17/17 Patient stable and continues on comfort cares. No changes to medications or status. Continue current diet and monitoring. 01/04/18 No changes to care of patient. We will continue comfort cares with current diet.
[2018-01-04] MEDS: SEROQUEL 400 MG PO SCH (20:35)
[2018-01-04] MEDS: LORazepam 0.5 MG Tab PO PRN (20:35)
[2018-01-05] MEDS: LORazepam 0.5 MG Tab PO PRN (04:40)
[2018-01-05] MEDS: Acetaminophen/HYDROcodone 325-5 MG Tab PO PRN ×2 (05:00→20:37)
[2018-01-05] MEDS: Non-Formulary Medication 1 Each (Metronidazole [Metronidazole 0.75% Cream] 1 APPLIC) TOP SCH (08:20)
[2018-01-05] MEDS: DOCUSATE PO SCH ×2 (08:20→17:30)
[2018-01-05] MEDS: Citalopram 20 MG Tab PO SCH (08:20)
[2018-01-05] MEDS: SENNOSIDES PO SCH ×2 (08:20→17:30)
[2018-01-05] MEDS: Magnesium Hydroxide 400 MG/5 ML Susp 30 ML Cup PO SCH (08:21)
[2018-01-05] MEDS: Acetaminophen 650 MG Tab.ER PO SCH ×2 (08:21→20:37)
[2018-01-05] MEDS: LORazepam 2 MG/ML SDV IM PRN (20:36)
[2018-01-05] MEDS: SEROQUEL 400 MG PO SCH (20:36)
[2018-01-06] MEDS: Non-Formulary Medication 1 Each (Metronidazole [Metronidazole 0.75% Cream] 1 APPLIC) TOP SCH (07:57)
[2018-01-06] MEDS: Citalopram 20 MG Tab PO SCH (07:58)
[2018-01-06] MEDS: DOCUSATE PO SCH ×2 (07:58→17:17)
[2018-01-06] MEDS: Acetaminophen 650 MG Tab.ER PO SCH ×2 (07:58→21:00)
[2018-01-06] MEDS: SENNOSIDES PO SCH ×2 (07:58→17:17)
[2018-01-06] MEDS: Magnesium Hydroxide 400 MG/5 ML Susp 30 ML Cup PO SCH (07:59)
[2018-01-06] MEDS: REMOVE FENTANYL TRDERM SCH (08:04)
[2018-01-06] MEDS: fentaNYL 50 MCG/HR Transdermal Patch TRDERM SCH (08:05)
[2018-01-06] MEDS: Acetaminophen/HYDROcodone 325-5 MG Tab PO PRN (17:17)
[2018-01-06] MEDS: SEROQUEL 400 MG PO SCH (20:59)
[2018-01-06] MEDS: LORazepam 2 MG/ML SDV IM PRN (20:59)
[2018-01-07] MEDS: Acetaminophen/HYDROcodone 325-5 MG Tab PO PRN ×3 (01:30→19:07)
[2018-01-07] MEDS: Non-Formulary Medication 1 Each (Metronidazole [Metronidazole 0.75% Cream] 1 APPLIC) TOP SCH (07:00)
[2018-01-07] MEDS: Magnesium Hydroxide 400 MG/5 ML Susp 30 ML Cup PO SCH (07:00)
[2018-01-07] MEDS: SENNOSIDES PO SCH ×2 (07:15→16:57)
[2018-01-07] MEDS: Citalopram 20 MG Tab PO SCH (07:15)
[2018-01-07] MEDS: DOCUSATE PO SCH ×2 (07:15→16:57)
[2018-01-07] MEDS: Acetaminophen 650 MG Tab.ER PO SCH ×2 (07:15→19:06)
[2018-01-07] MEDS: SEROQUEL 400 MG PO SCH (19:06)
[2018-01-07] MEDS: LORazepam 2 MG/ML SDV IM PRN (19:07)
[2018-01-08] MEDS: Non-Formulary Medication 1 Each (Metronidazole [Metronidazole 0.75% Cream] 1 APPLIC) TOP SCH (08:28)
[2018-01-08] MEDS: SENNOSIDES PO SCH ×2 (08:28→14:00)
[2018-01-08] MEDS: Magnesium Hydroxide 400 MG/5 ML Susp 30 ML Cup PO SCH (08:28)
[2018-01-08] MEDS: DOCUSATE PO SCH ×2 (08:28→14:00)
[2018-01-08] MEDS: Citalopram 20 MG Tab PO SCH (08:28)
[2018-01-08] MEDS: Acetaminophen 650 MG Tab.ER PO SCH ×2 (08:29→19:37)
[2018-01-08] MEDS: SEROQUEL 400 MG PO SCH (19:36)
[2018-01-08] MEDS: LORazepam 0.5 MG Tab PO PRN (19:37)
[2018-01-08] MEDS: Acetaminophen/HYDROcodone 325-5 MG Tab PO PRN (19:37)
[2018-01-09] MEDS: DOCUSATE PO SCH ×2 (08:25→17:30)
[2018-01-09] MEDS: Non-Formulary Medication 1 Each (Metronidazole [Metronidazole 0.75% Cream] 1 APPLIC) TOP SCH (08:25)
[2018-01-09] MEDS: Citalopram 20 MG Tab PO SCH (08:25)
[2018-01-09] MEDS: SENNOSIDES PO SCH ×2 (08:25→17:30)
[2018-01-09] MEDS: Acetaminophen 650 MG Tab.ER PO SCH ×2 (08:27→19:20)
[2018-01-09] MEDS: fentaNYL 50 MCG/HR Transdermal Patch TRDERM SCH (08:29)
[2018-01-09] MEDS: Magnesium Hydroxide 400 MG/5 ML Susp 30 ML Cup PO SCH (08:29)
[2018-01-09] MEDS: REMOVE FENTANYL TRDERM SCH (08:30)
[2018-01-09] MEDS: Acetaminophen/HYDROcodone 325-5 MG Tab PO PRN ×3 (12:50→23:00)
[2018-01-09] MEDS: SEROQUEL 400 MG PO SCH (19:20)
[2018-01-09] MEDS: LORazepam 0.5 MG Tab PO PRN (19:20)
[2018-01-10] MEDS: Acetaminophen 650 MG Tab.ER PO SCH ×2 (09:05→19:42)
[2018-01-10] MEDS: Citalopram 20 MG Tab PO SCH (09:07)
[2018-01-10] MEDS: SENNOSIDES PO SCH ×2 (09:07→17:19)
[2018-01-10] MEDS: Non-Formulary Medication 1 Each (Metronidazole [Metronidazole 0.75% Cream] 1 APPLIC) TOP SCH (09:07)
[2018-01-10] MEDS: DOCUSATE PO SCH ×2 (09:07→17:19)
[2018-01-10] MEDS: Magnesium Hydroxide 400 MG/5 ML Susp 30 ML Cup PO SCH (09:08)
[2018-01-10] MEDS: SEROQUEL 400 MG PO SCH (19:42)
[2018-01-10] MEDS: Acetaminophen/HYDROcodone 325-5 MG Tab PO PRN (19:42)
[2018-01-10] MEDS: LORazepam 0.5 MG Tab PO PRN (19:42)
[2018-01-11] MEDS: Non-Formulary Medication 1 Each (Metronidazole [Metronidazole 0.75% Cream] 1 APPLIC) TOP SCH (11:00)
[2018-01-11] MEDS: SENNOSIDES PO SCH (11:05)
[2018-01-11] MEDS: Citalopram 20 MG Tab PO SCH (11:05)
[2018-01-11] MEDS: DOCUSATE PO SCH (11:05)
[2018-01-11] MEDS: Acetaminophen 650 MG Tab.ER PO SCH (11:05)
[2018-01-11] MEDS: Magnesium Hydroxide 400 MG/5 ML Susp 30 ML Cup PO SCH (11:10)
--- NOTE | 2018-01-11 14:32 | PCM.PN ---
- General Info Date of Service: 01/11/18 Subjective Update: Patient alert and arousable and resting comfortable. He does not respond to voice commands but will respond to light touch on the shoulder and will look and try to focus on you. Functional Status: Reports: Other (unable to obtain ROS and limited Physical ) - Patient Data Vitals - Most Recent: Last Vital Signs Temp 36.7 C 12/26/17 10:00 Pulse 84 12/26/17 10:00 Resp 14 12/26/17 10:00 BP 113/83 12/26/17 10:00 Pulse Ox 96 12/26/17 10:00 Weight - Most Recent: 59.874 kg I&O - Last 24 Hours: Intake & Output 01/10/18 01/11/18 01/11/18 22:59 06:59 14:59 Intake Total 840 360 Output Total 360 Balance 480 360 Med Orders - Current: Current Medications Acetaminophen (Tylenol Arthritis Pain) 650 mg PO BID [facility] Last Admin: 01/11/18 11:05 Dose: 650 mg Hydrocodone Bitart/Acetaminophen ([place] 325-5 Mg) 1 tab PO Q4H PRN PRN Reason: MODERATE PAIN Last Admin: 01/10/18 19:42 Dose: 1 tab Bisacodyl (Dulcolax) 10 mg RECTAL DAILY PRN PRN Reason: CONSTIPATION Last Admin: 12/17/17 05:15 Dose: 10 mg Citalopram Hydrobromide (Celexa) 20 mg PO DAILY [facility] Last Admin: 01/11/18 11:05 Dose: 20 mg Fentanyl (Duragesic) 50 mcg TRDERM Q72H [facility] Last Admin: 01/09/18 08:29 Dose: 50 mcg Loperamide HCl (Imodium) 2 mg PO Q4H PRN PRN Reason: DIARRHEA Lorazepam (Ativan) 0.5 mg PO Q8H PRN PRN Reason: ANXIETY Last Admin: 01/10/18 19:42 Dose: 0.5 mg Magnesium Hydroxide (Milk Of Magnesia) 30 ml PO DAILY [facility] Last Admin: 01/11/18 11:10 Dose: 30 ml Miscellaneous Information (Remove Patch) 1 ea TRDERM Q72H [facility] Last Admin: 01/09/18 08:30 Dose: 1 ea Morphine Sulfate (Morphine) 2 mg SUBCUT Q4H PRN PRN Reason: PAIN Last Admin: 11/11/17 19:15 Dose: 2 mg Seroquel 400mg (Tablets) 1 each PO BEDTIME [facility] Last Admin: 01/10/18 19:42 Dose: 1 each Non-Formulary Medication (Metronidazole [Metronidazole 0.75% Cream]) 1 applic TOP DAILY [facility] Last Admin: 01/11/18 11:00 Dose: 1 applic Quetiapine Fumarate (Seroquel) 50 mg PO BEDTIME [facility] Last Admin: 01/10/18 19:42 Dose: 50 mg Quetiapine Fumarate (Seroquel) 200 mg PO DAILY@0800,1200 [facility] Last Admin: 01/11/18 11:05 Dose: 200 mg Quetiapine Fumarate (Seroquel) 50 mg PO DAILY@0800,1200 [facility] Last Admin: 01/11/18 11:05 Dose: 50 mg Scopolamine (Transderm-Scop) 1.5 mg TOP Q72H PRN PRN Reason: SECRETIONS Senna/Docusate Sodium (Senna Plus) 1 tab PO BID@0800,1700 [facility] Last Admin: 01/11/18 11:05 Dose: 1 tab Discontinued Medications Acetaminophen (Tylenol) 650 mg PO BID [facility] Last Admin: 10/19/17 07:20 Dose: 650 mg Ciprofloxacin (Ciprofloxacin Hcl) 250 mg PO BID [facility] Stop: 12/04/17 20:01 Last Admin: 12/04/17 20:30 Dose: Not Given Fentanyl (Duragesic) 25 mcg TRDERM Q72H [facility] Last Admin: 12/01/17 08:00 Dose: 25 mcg Fentanyl (Duragesic) 12 mcg TRDERM Q72H [facility] Last Admin: 12/01/17 08:00 Dose: 12 mcg Fentanyl (Duragesic) 12 mcg TRDERM Q72H [facility] Last Admin: 12/03/17 20:20 Dose: Not Given Fentanyl (Duragesic) 25 mcg TRDERM ONETIME ONE Stop: 12/02/17 18:31 Last Admin: 12/02/17 18:37 Dose: 25 mcg Fentanyl (Duragesic) 50 mcg TRDERM Q72H [facility] Last Admin: 12/04/17 11:45 Dose: Not Given Fentanyl (Duragesic) 50 mcg TRDERM Q72H [facility] Last Admin: 12/16/17 09:19 Dose: 50 mcg Lorazepam (Ativan) Confirm Administered Dose 2 mg .ROUTE .STK-MED ONE Stop: 10/10/17 19:54 Last Admin: 10/10/17 20:02 Dose: 2 mg Lorazepam (Ativan) 1 mg IM Q4H PRN PRN Reason: Agitation Last Admin: 01/07/18 19:07 Dose: 1 mg Magnesium Hydroxide (Milk Of Magnesia) Confirm Administered Dose 30 ml .ROUTE .STK-MED ONE Stop: 12/09/17 15:52 Last Admin: 12/09/17 15:59 Dose: 30 ml Magnesium Hydroxide (Milk Of Magnesia) Confirm Administered Dose 30 ml .ROUTE .STK-MED ONE Stop: 12/17/17 10:02 Last Admin: 12/17/17 10:11 Dose: 30 ml Magnesium Hydroxide (Milk Of Magnesia) 30 ml PO BEDTIME [facility] Last Admin: 12/20/17 00:06 Dose: Not Given Magnesium Hydroxide (Milk Of Magnesia) 30 ml PO DAILY@0800 [facility] Last Admin: 12/20/17 10:13 Dose: 30 ml Miscellaneous Information (Remove Patch) 1 ea TRDERM Q72H [facility] Last Admin: 12/01/17 08:00 Dose: 1 ea Senna (Senna) 8.6 mg PO BID@0800,1700 [facility] Last Admin: 12/18/17 08:51 Dose: 8.6 mg Senna/Docusate Sodium (Senna Plus) 1 tab PO BID@0800,1700 [facility] Last Admin: 12/08/17 07:19 Dose: 1 tab Senna/Docusate Sodium (Senna Plus) 1 tab PO BID [facility] Sodium Biphosphate/Sodium Phosphate (Fleet Enema) 133 ml RECTAL ONETIME ONE Stop: 12/09/17 15:59 Last Admin: 12/09/17 16:25 Dose: 1 bottle - Exam General: Alert HEENT: Pupils Equal, Pupils Reactive Lungs: Clear to Auscultation, Normal Respiratory Effort Cardiovascular: Regular Rate, Regular Rhythm Extremities: Normal Inspection, Other (thin) Peripheral Pulses: 2+: Dorsalis Pedis (L), Dorsalis Pedis (R) Skin: Warm, Dry, Intact - Problem List & Annotations (1) Comfort measures only status SNOMED Code(s): 81646879264508 Code(s): Z51.5 - ENCOUNTER FOR PALLIATIVE CARE Status: Chronic Priority: High Current Visit: Yes (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 Code(s): F03.91 - UNSPECIFIED DEMENTIA WITH BEHAVIORAL DISTURBANCE Status: Chronic Priority: High Current Visit: Yes Qualifiers: Dementia behavioral disturbance: with behavioral disturbance Qualified Code (s): F02.81 - Dementia in other diseases classified elsewhere with behavioral disturbance (3) Diabetes mellitus SNOMED Code(s): 67109566 Code(s): E11.9 - TYPE 2 DIABETES MELLITUS WITHOUT COMPLICATIONS Status: Chronic Priority: Medium Current Visit: Yes Qualifiers: Diabetes mellitus type: type 2 Diabetes mellitus mcfp insulin use: without mcfp use Diabetes mellitus complication status: with hyperglycemia Qualified Code(s): E11.65 - Type 2 diabetes mellitus with hyperglycemia (4) Incontinence overflow, urine SNOMED Code(s): 927057734 Code(s): N39.490 - OVERFLOW INCONTINENCE Status: Chronic Priority: Medium Current Visit: Yes (5) Neurogenic bladder SNOMED Code(s): 484474684 Code(s): N31.9 - NEUROMUSCULAR DYSFUNCTION OF BLADDER, UNSPECIFIED Status: Chronic Priority: Medium Current Visit: Yes (6) Palliative care patient SNOMED Code(s): 088926630 Code(s): Z51.5 - ENCOUNTER FOR PALLIATIVE CARE Status: Chronic Priority: High Current Visit: Yes (7) Paranoid schizophrenia, chronic condition SNOMED Code(s): 26843778 Code(s): F20.0 - PARANOID SCHIZOPHRENIA Status: Chronic Priority: High Current Visit: Yes - Problem List Review Problem List Initiated/Reviewed/Updated: Yes - Plan Plan:: Patient to continue current diet and management. No changes to supportive care. We will also continue to monitor for any bed sores. Patient resting well and is very stable. 11/09/17 No changes to status at this time. Patient is resting comfortably. He does eat with help from nursing staff. 12/17/17 Patient stable and continues on comfort cares. No changes to medications or status. Continue current diet and monitoring. 01/04/18 No changes to care of patient. We will continue comfort cares with current diet. 01/11/18 Patient continues with comfort cares and is eating routinely with certain nurses.
[2018-01-12] MEDS: DOCUSATE PO SCH ×3 (03:29→17:51)
[2018-01-12] MEDS: Acetaminophen 650 MG Tab.ER PO SCH ×3 (03:29→20:34)
[2018-01-12] MEDS: SEROQUEL 400 MG PO SCH ×2 (03:29→20:33)
[2018-01-12] MEDS: SENNOSIDES PO SCH ×3 (03:29→17:51)
[2018-01-12] MEDS: Acetaminophen/HYDROcodone 325-5 MG Tab PO PRN ×4 (07:00→20:34)
[2018-01-12] MEDS: fentaNYL 50 MCG/HR Transdermal Patch TRDERM SCH (08:42)
[2018-01-12] MEDS: Citalopram 20 MG Tab PO SCH (08:42)
[2018-01-12] MEDS: Magnesium Hydroxide 400 MG/5 ML Susp 30 ML Cup PO SCH (08:43)
[2018-01-12] MEDS: REMOVE FENTANYL TRDERM SCH (08:43)
[2018-01-12] MEDS: Non-Formulary Medication 1 Each (Metronidazole [Metronidazole 0.75% Cream] 1 APPLIC) TOP SCH (08:43)
[2018-01-12] MEDS: LORazepam 0.5 MG Tab PO PRN (20:34)
[2018-01-13] MEDS: Acetaminophen/HYDROcodone 325-5 MG Tab PO PRN ×3 (07:15→21:00)
[2018-01-13] MEDS: Magnesium Hydroxide 400 MG/5 ML Susp 30 ML Cup PO SCH (08:23)
[2018-01-13] MEDS: DOCUSATE PO SCH ×2 (08:23→17:51)
[2018-01-13] MEDS: Citalopram 20 MG Tab PO SCH (08:23)
[2018-01-13] MEDS: SENNOSIDES PO SCH ×2 (08:23→17:51)
[2018-01-13] MEDS: Non-Formulary Medication 1 Each (Metronidazole [Metronidazole 0.75% Cream] 1 APPLIC) TOP SCH (08:23)
[2018-01-13] MEDS: Acetaminophen 650 MG Tab.ER PO SCH ×2 (08:24→21:00)
[2018-01-13] MEDS: LORazepam 0.5 MG Tab PO PRN (21:00)
[2018-01-13] MEDS: SEROQUEL 400 MG PO SCH (21:00)
[2018-01-14] MEDS: Citalopram 20 MG Tab PO SCH (07:25)
[2018-01-14] MEDS: Non-Formulary Medication 1 Each (Metronidazole [Metronidazole 0.75% Cream] 1 APPLIC) TOP SCH (07:25)
[2018-01-14] MEDS: SENNOSIDES PO SCH ×2 (07:26→18:49)
[2018-01-14] MEDS: Magnesium Hydroxide 400 MG/5 ML Susp 30 ML Cup PO SCH (07:26)
[2018-01-14] MEDS: DOCUSATE PO SCH ×2 (07:26→18:49)
[2018-01-14] MEDS: Acetaminophen 650 MG Tab.ER PO SCH ×2 (07:27→19:33)
[2018-01-14] MEDS: SEROQUEL 400 MG PO SCH (19:33)
[2018-01-14] MEDS: Acetaminophen/HYDROcodone 325-5 MG Tab PO PRN ×2 (19:35→23:09)
[2018-01-14] MEDS: LORazepam 0.5 MG Tab PO PRN (19:35)
[2018-01-15] MEDS: Acetaminophen/HYDROcodone 325-5 MG Tab PO PRN ×2 (05:09→21:05)
[2018-01-15] MEDS ORDERED: Lactated Ringers 1,000 ML IV SCH (08:30)
[2018-01-15] MEDS: REMOVE FENTANYL TRDERM SCH (09:00)
[2018-01-15] MEDS: fentaNYL 50 MCG/HR Transdermal Patch TRDERM SCH (09:00)
[2018-01-15] MEDS: SENNOSIDES PO SCH ×2 (09:00→18:15)
[2018-01-15] MEDS: Non-Formulary Medication 1 Each (Metronidazole [Metronidazole 0.75% Cream] 1 APPLIC) TOP SCH (09:00)
[2018-01-15] MEDS: DOCUSATE PO SCH ×2 (09:00→18:15)
[2018-01-15] MEDS: Citalopram 20 MG Tab PO SCH (09:00)
[2018-01-15] MEDS: Acetaminophen 650 MG Tab.ER PO SCH ×2 (09:00→20:57)
[2018-01-15] MEDS: Magnesium Hydroxide 400 MG/5 ML Susp 30 ML Cup PO SCH (09:10)
[2018-01-15] MEDS: LORazepam 0.5 MG Tab PO PRN ×2 (12:45→20:56)
[2018-01-15] MEDS: SEROQUEL 400 MG PO SCH (20:56)
[2018-01-16] MEDS: Citalopram 20 MG Tab PO SCH (09:10)
[2018-01-16] MEDS: SENNOSIDES PO SCH ×2 (09:10→17:43)
[2018-01-16] MEDS: Magnesium Hydroxide 400 MG/5 ML Susp 30 ML Cup PO SCH (09:10)
[2018-01-16] MEDS: DOCUSATE PO SCH ×2 (09:10→17:43)
[2018-01-16] MEDS: Acetaminophen 650 MG Tab.ER PO SCH ×2 (09:10→20:15)
[2018-01-16] MEDS: Non-Formulary Medication 1 Each (Metronidazole [Metronidazole 0.75% Cream] 1 APPLIC) TOP SCH (09:15)
[2018-01-16] MEDS: Acetaminophen/HYDROcodone 325-5 MG Tab PO PRN (20:15)
[2018-01-16] MEDS: SEROQUEL 400 MG PO SCH (20:15)
[2018-01-16] MEDS: LORazepam 0.5 MG Tab PO PRN (20:15)
[2018-01-17] MEDS: Non-Formulary Medication 1 Each (Metronidazole [Metronidazole 0.75% Cream] 1 APPLIC) TOP SCH (09:03)
[2018-01-17] MEDS: Citalopram 20 MG Tab PO SCH (10:40)
[2018-01-17] MEDS: Acetaminophen 650 MG Tab.ER PO SCH ×2 (10:40→19:15)
[2018-01-17] MEDS: SENNOSIDES PO SCH ×2 (10:40→18:25)
[2018-01-17] MEDS: Acetaminophen/HYDROcodone 325-5 MG Tab PO PRN ×3 (10:40→23:12)
[2018-01-17] MEDS: DOCUSATE PO SCH ×2 (10:40→18:25)
[2018-01-17] MEDS: Magnesium Hydroxide 400 MG/5 ML Susp 30 ML Cup PO SCH (10:42)
[2018-01-17] MEDS: SEROQUEL 400 MG PO SCH (19:15)
[2018-01-18] MEDS: Citalopram 20 MG Tab PO SCH (12:23)
[2018-01-18] MEDS: Non-Formulary Medication 1 Each (Metronidazole [Metronidazole 0.75% Cream] 1 APPLIC) TOP SCH (12:25)
[2018-01-18] MEDS: Magnesium Hydroxide 400 MG/5 ML Susp 30 ML Cup PO SCH (12:25)
[2018-01-18] MEDS: fentaNYL 50 MCG/HR Transdermal Patch TRDERM SCH (12:25)
[2018-01-18] MEDS: REMOVE FENTANYL TRDERM SCH (12:25)
[2018-01-18] MEDS: DOCUSATE PO SCH ×2 (12:27→17:19)
[2018-01-18] MEDS: SENNOSIDES PO SCH ×2 (12:27→17:19)
[2018-01-18] MEDS: Acetaminophen 650 MG Tab.ER PO SCH ×2 (12:28→20:16)
[2018-01-18] MEDS: SEROQUEL 400 MG PO SCH (20:16)
[2018-01-18] MEDS: Acetaminophen/HYDROcodone 325-5 MG Tab PO PRN (20:20)
[2018-01-18] MEDS: LORazepam 0.5 MG Tab PO PRN (20:20)
[2018-01-19] MEDS: Acetaminophen/HYDROcodone 325-5 MG Tab PO PRN ×3 (07:15→20:09)
[2018-01-19] MEDS: Citalopram 20 MG Tab PO SCH (08:43)
[2018-01-19] MEDS: SENNOSIDES PO SCH ×2 (08:43→17:19)
[2018-01-19] MEDS: DOCUSATE PO SCH ×2 (08:43→17:19)
[2018-01-19] MEDS: Magnesium Hydroxide 400 MG/5 ML Susp 30 ML Cup PO SCH (08:43)
[2018-01-19] MEDS: Non-Formulary Medication 1 Each (Metronidazole [Metronidazole 0.75% Cream] 1 APPLIC) TOP SCH (08:43)
[2018-01-19] MEDS: Acetaminophen 650 MG Tab.ER PO SCH ×2 (08:43→20:09)
--- NOTE | 2018-01-19 17:36 | PCM.PN ---
- General Info Date of Service: 01/19/18 Subjective Update: This is a 87yo M who has been stable the past month. He is eating regularly but intermittently with nursing assistance. He does not get out of bed but is able to move around in bed. Patient does appear comfortable but does not respond very much to verbal commands. He will respond to touch and in the am on a good day he will look at you. - Review of Systems General: Reports: Weakness - Patient Data Vitals - Most Recent: Last Vital Signs Temp 36.7 C 12/26/17 10:00 Pulse 84 12/26/17 10:00 Resp 14 12/26/17 10:00 BP 113/83 12/26/17 10:00 Pulse Ox 96 12/26/17 10:00 Weight - Most Recent: 59.874 kg Med Orders - Current: Current Medications Acetaminophen (Tylenol Arthritis Pain) 650 mg PO BID [facility] Last Admin: 01/19/18 08:43 Dose: 650 mg Hydrocodone Bitart/Acetaminophen ([place] 325-5 Mg) 1 tab PO Q4H PRN PRN Reason: MODERATE PAIN Last Admin: 01/19/18 11:59 Dose: 1 tab Bisacodyl (Dulcolax) 10 mg RECTAL DAILY PRN PRN Reason: CONSTIPATION Last Admin: 12/17/17 05:15 Dose: 10 mg Citalopram Hydrobromide (Celexa) 20 mg PO DAILY [facility] Last Admin: 01/19/18 08:43 Dose: 20 mg Fentanyl (Duragesic) 50 mcg TRDERM Q72H [facility] Last Admin: 01/18/18 12:25 Dose: 50 mcg Loperamide HCl (Imodium) 2 mg PO Q4H PRN PRN Reason: DIARRHEA Lorazepam (Ativan) 0.5 mg PO Q8H PRN PRN Reason: ANXIETY Last Admin: 01/18/18 20:20 Dose: 0.5 mg Magnesium Hydroxide (Milk Of Magnesia) 30 ml PO DAILY [facility] Last Admin: 01/19/18 08:43 Dose: 30 ml Miscellaneous Information (Remove Patch) 1 ea TRDERM Q72H [facility] Last Admin: 01/18/18 12:25 Dose: 1 ea Morphine Sulfate (Morphine) 2 mg SUBCUT Q4H PRN PRN Reason: PAIN Last Admin: 11/11/17 19:15 Dose: 2 mg Seroquel 400mg (Tablets) 1 each PO BEDTIME [facility] Last Admin: 01/18/18 20:16 Dose: 1 each Non-Formulary Medication (Metronidazole [Metronidazole 0.75% Cream]) 1 applic TOP DAILY [facility] Last Admin: 01/19/18 08:43 Dose: 1 applic Quetiapine Fumarate (Seroquel) 50 mg PO BEDTIME [facility] Last Admin: 01/18/18 20:16 Dose: 50 mg Quetiapine Fumarate (Seroquel) 200 mg PO DAILY@0800,1200 [facility] Last Admin: 01/19/18 11:59 Dose: 200 mg Quetiapine Fumarate (Seroquel) 50 mg PO DAILY@0800,1200 [facility] Last Admin: 01/19/18 11:59 Dose: 50 mg Scopolamine (Transderm-Scop) 1.5 mg TOP Q72H PRN PRN Reason: SECRETIONS Senna/Docusate Sodium (Senna Plus) 1 tab PO BID@0800,1700 [facility] Last Admin: 01/19/18 17:19 Dose: Not Given Discontinued Medications Acetaminophen (Tylenol) 650 mg PO BID [facility] Last Admin: 10/19/17 07:20 Dose: 650 mg Ciprofloxacin (Ciprofloxacin Hcl) 250 mg PO BID [facility] Stop: 12/04/17 20:01 Last Admin: 12/04/17 20:30 Dose: Not Given Fentanyl (Duragesic) 25 mcg TRDERM Q72H [facility] Last Admin: 12/01/17 08:00 Dose: 25 mcg Fentanyl (Duragesic) 12 mcg TRDERM Q72H [facility] Last Admin: 12/01/17 08:00 Dose: 12 mcg Fentanyl (Duragesic) 12 mcg TRDERM Q72H [facility] Last Admin: 12/03/17 20:20 Dose: Not Given Fentanyl (Duragesic) 25 mcg TRDERM ONETIME ONE Stop: 12/02/17 18:31 Last Admin: 12/02/17 18:37 Dose: 25 mcg Fentanyl (Duragesic) 50 mcg TRDERM Q72H [facility] Last Admin: 12/04/17 11:45 Dose: Not Given Fentanyl (Duragesic) 50 mcg TRDERM Q72H [facility] Last Admin: 12/16/17 09:19 Dose: 50 mcg Lactated Ringer's (Ringers, Lactated) 1,000 mls @ 75 mls/hr IV ASDIRECTED [facility] Lorazepam (Ativan) Confirm Administered Dose 2 mg .ROUTE .STK-MED ONE Stop: 10/10/17 19:54 Last Admin: 10/10/17 20:02 Dose: 2 mg Lorazepam (Ativan) 1 mg IM Q4H PRN PRN Reason: Agitation Last Admin: 01/07/18 19:07 Dose: 1 mg Magnesium Hydroxide (Milk Of Magnesia) Confirm Administered Dose 30 ml .ROUTE .STK-MED ONE Stop: 12/09/17 15:52 Last Admin: 12/09/17 15:59 Dose: 30 ml Magnesium Hydroxide (Milk Of Magnesia) Confirm Administered Dose 30 ml .ROUTE .STK-MED ONE Stop: 12/17/17 10:02 Last Admin: 12/17/17 10:11 Dose: 30 ml Magnesium Hydroxide (Milk Of Magnesia) 30 ml PO BEDTIME [facility] Last Admin: 12/20/17 00:06 Dose: Not Given Magnesium Hydroxide (Milk Of Magnesia) 30 ml PO DAILY@0800 [facility] Last Admin: 12/20/17 10:13 Dose: 30 ml Miscellaneous Information (Remove Patch) 1 ea TRDERM Q72H [facility] Last Admin: 12/01/17 08:00 Dose: 1 ea Senna (Senna) 8.6 mg PO BID@0800,1700 [facility] Last Admin: 12/18/17 08:51 Dose: 8.6 mg Senna/Docusate Sodium (Senna Plus) 1 tab PO BID@0800,1700 [facility] Last Admin: 12/08/17 07:19 Dose: 1 tab Senna/Docusate Sodium (Senna Plus) 1 tab PO BID [facility] Sodium Biphosphate/Sodium Phosphate (Fleet Enema) 133 ml RECTAL ONETIME ONE Stop: 12/09/17 15:59 Last Admin: 12/09/17 16:25 Dose: 1 bottle - Exam General: Other (Unable to obtain a physical. 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 Code(s): F03.91 - UNSPECIFIED DEMENTIA WITH BEHAVIORAL DISTURBANCE Status: Chronic Priority: High Current Visit: Yes Qualifiers: Dementia behavioral disturbance: with behavioral disturbance Qualified Code (s): F02.81 - Dementia in other diseases classified elsewhere with behavioral disturbance (3) Diabetes mellitus SNOMED Code(s): 87758411 Code(s): E11.9 - TYPE 2 DIABETES MELLITUS WITHOUT COMPLICATIONS Status: Chronic Priority: Medium Current Visit: Yes Qualifiers: Diabetes mellitus type: type 2 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 marine 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 use Diabetes mellitus complication status: with hyperglycemia Qualified Code(s): E11.65 - Type 2 diabetes mellitus with hyperglycemia (4) Incontinence overflow, urine SNOMED Code(s): 045458751 Code(s): N39.490 - OVERFLOW INCONTINENCE Status: Chronic Priority: Medium Current Visit: Yes (5) Neurogenic bladder SNOMED Code(s): 114456600 Code(s): N31.9 - NEUROMUSCULAR DYSFUNCTION OF BLADDER, UNSPECIFIED Status: Chronic Priority: Medium Current Visit: Yes (6) Palliative care patient SNOMED Code(s): 098184658 Code(s): Z51.5 - ENCOUNTER FOR PALLIATIVE CARE Status: Chronic Priority: High Current Visit: Yes (7) Paranoid schizophrenia, chronic condition SNOMED Code(s): 25524534 Code(s): F20.0 - PARANOID SCHIZOPHRENIA Status: Chronic Priority: High Current Visit: Yes - Problem List Review Problem List Initiated/Reviewed/Updated: Yes - Plan Plan:: Patient to continue current diet and management. No changes to supportive care. We will also continue to monitor for any bed sores. Patient resting well and is very stable. 11/09/17 No changes to status at this time. Patient is resting comfortably. He does eat with help from nursing staff. 12/17/17 Patient stable and continues on comfort cares. No changes to medications or status. Continue current diet and monitoring. 01/04/18 No changes to care of patient. We will continue comfort cares with current diet. 01/11/18 Patient continues with comfort cares and is eating routinely with certain nurses. 01/19/18 No changes at this time. We will continue current cares and comfort cares.
[2018-01-19] MEDS: SEROQUEL 400 MG PO SCH (20:08)
[2018-01-19] MEDS: LORazepam 0.5 MG Tab PO PRN (20:09)
[2018-01-20] MEDS: Citalopram 20 MG Tab PO SCH (09:45)
[2018-01-20] MEDS: Acetaminophen/HYDROcodone 325-5 MG Tab PO PRN ×2 (09:46→20:00)
[2018-01-20] MEDS: SENNOSIDES PO SCH ×2 (09:49→16:48)
[2018-01-20] MEDS: DOCUSATE PO SCH ×2 (09:49→16:48)
[2018-01-20] MEDS: Acetaminophen 650 MG Tab.ER PO SCH ×2 (09:49→20:00)
[2018-01-20] MEDS: fentaNYL 50 MCG/HR Transdermal Patch TRDERM SCH (09:50)
[2018-01-20] MEDS: Magnesium Hydroxide 400 MG/5 ML Susp 30 ML Cup PO SCH (09:56)
[2018-01-20] MEDS: Non-Formulary Medication 1 Each (Metronidazole [Metronidazole 0.75% Cream] 1 APPLIC) TOP SCH (10:30)
[2018-01-20] MEDS: LORazepam 0.5 MG Tab PO PRN (20:00)
[2018-01-20] MEDS: SEROQUEL 400 MG PO SCH (20:00)
[2018-01-21] MEDS: Non-Formulary Medication 1 Each (Metronidazole [Metronidazole 0.75% Cream] 1 APPLIC) TOP SCH (08:05)
[2018-01-21] MEDS: DOCUSATE PO SCH ×2 (08:06→16:54)
[2018-01-21] MEDS: SENNOSIDES PO SCH ×2 (08:06→16:54)
[2018-01-21] MEDS: Citalopram 20 MG Tab PO SCH (08:07)
[2018-01-21] MEDS: Acetaminophen 650 MG Tab.ER PO SCH ×2 (08:07→19:45)
[2018-01-21] MEDS: Magnesium Hydroxide 400 MG/5 ML Susp 30 ML Cup PO SCH (08:08)
[2018-01-21] MEDS: REMOVE FENTANYL TRDERM SCH (08:45)
[2018-01-21] MEDS: Acetaminophen/HYDROcodone 325-5 MG Tab PO PRN ×2 (12:38→19:46)
[2018-01-21] MEDS: LORazepam 0.5 MG Tab PO PRN (19:45)
[2018-01-21] MEDS: SEROQUEL 400 MG PO SCH (19:45)
[2018-01-22] MEDS: DOCUSATE PO SCH ×2 (07:57→16:46)
[2018-01-22] MEDS: Citalopram 20 MG Tab PO SCH (07:57)
[2018-01-22] MEDS: SENNOSIDES PO SCH ×2 (07:57→16:46)
[2018-01-22] MEDS: Acetaminophen 650 MG Tab.ER PO SCH ×2 (07:58→20:57)
[2018-01-22] MEDS: Magnesium Hydroxide 400 MG/5 ML Susp 30 ML Cup PO SCH (07:58)
[2018-01-22] MEDS: Acetaminophen/HYDROcodone 325-5 MG Tab PO PRN ×3 (08:30→20:57)
[2018-01-22] MEDS: Non-Formulary Medication 1 Each (Metronidazole [Metronidazole 0.75% Cream] 1 APPLIC) TOP SCH (16:34)
[2018-01-22] MEDS: LORazepam 0.5 MG Tab PO PRN (20:57)
[2018-01-22] MEDS: SEROQUEL 400 MG PO SCH (20:57)
[2018-01-23] MEDS: Non-Formulary Medication 1 Each (Metronidazole [Metronidazole 0.75% Cream] 1 APPLIC) TOP SCH (07:46)
[2018-01-23] MEDS: Citalopram 20 MG Tab PO SCH (07:46)
[2018-01-23] MEDS: Acetaminophen 650 MG Tab.ER PO SCH ×2 (07:47→19:38)
[2018-01-23] MEDS: Magnesium Hydroxide 400 MG/5 ML Susp 30 ML Cup PO SCH (07:47)
[2018-01-23] MEDS: DOCUSATE PO SCH ×2 (07:47→17:17)
[2018-01-23] MEDS: SENNOSIDES PO SCH ×2 (07:47→17:17)
[2018-01-23] MEDS: fentaNYL 50 MCG/HR Transdermal Patch TRDERM SCH (08:27)
[2018-01-23] MEDS: Morphine 2 MG/ML Syringe SUBCUT PRN (19:37)
[2018-01-23] MEDS: SEROQUEL 400 MG PO SCH (19:38)
[2018-01-23] MEDS: LORazepam 0.5 MG Tab PO PRN (19:45)
[2018-01-24] MEDS: Acetaminophen/HYDROcodone 325-5 MG Tab PO PRN ×2 (05:42→20:54)
[2018-01-24] MEDS: Acetaminophen 650 MG Tab.ER PO SCH ×2 (08:01→20:49)
[2018-01-24] MEDS: Non-Formulary Medication 1 Each (Metronidazole [Metronidazole 0.75% Cream] 1 APPLIC) TOP SCH (08:01)
[2018-01-24] MEDS: Citalopram 20 MG Tab PO SCH (08:01)
[2018-01-24] MEDS: DOCUSATE PO SCH ×2 (08:02→17:14)
[2018-01-24] MEDS: SENNOSIDES PO SCH ×2 (08:02→17:14)
[2018-01-24] MEDS: Magnesium Hydroxide 400 MG/5 ML Susp 30 ML Cup PO SCH (08:02)
[2018-01-24] MEDS: SEROQUEL 400 MG PO SCH (20:49)
[2018-01-25] MEDS: Acetaminophen/HYDROcodone 325-5 MG Tab PO PRN ×3 (07:15→19:49)
[2018-01-25] MEDS: SENNOSIDES PO SCH ×2 (08:41→17:28)
[2018-01-25] MEDS: Non-Formulary Medication 1 Each (Metronidazole [Metronidazole 0.75% Cream] 1 APPLIC) TOP SCH (08:41)
[2018-01-25] MEDS: DOCUSATE PO SCH ×2 (08:41→17:28)
[2018-01-25] MEDS: Citalopram 20 MG Tab PO SCH (08:41)
[2018-01-25] MEDS: Magnesium Hydroxide 400 MG/5 ML Susp 30 ML Cup PO SCH (08:41)
[2018-01-25] MEDS: Acetaminophen 650 MG Tab.ER PO SCH ×2 (08:42→22:06)
[2018-01-25] MEDS: SEROQUEL 400 MG PO SCH (19:49)
[2018-01-26] MEDS: Acetaminophen/HYDROcodone 325-5 MG Tab PO PRN ×2 (05:00→19:30)
[2018-01-26] MEDS: Citalopram 20 MG Tab PO SCH (07:52)
[2018-01-26] MEDS: Acetaminophen 650 MG Tab.ER PO SCH ×2 (07:53→20:00)
[2018-01-26] MEDS: DOCUSATE PO SCH ×2 (07:53→17:30)
[2018-01-26] MEDS: Non-Formulary Medication 1 Each (Metronidazole [Metronidazole 0.75% Cream] 1 APPLIC) TOP SCH (07:53)
[2018-01-26] MEDS: Magnesium Hydroxide 400 MG/5 ML Susp 30 ML Cup PO SCH (07:53)
[2018-01-26] MEDS: SENNOSIDES PO SCH ×2 (07:53→17:30)
[2018-01-26] MEDS: fentaNYL 50 MCG/HR Transdermal Patch TRDERM SCH (08:35)
--- NOTE | 2018-01-26 10:09 | PCM.PN ---
- General Info Date of Service: 01/25/18 Functional Status: Reports: Other (No chages to status. Unable to obtain ROS and complete physical. ) - Review of Systems General: Reports: Weakness Neurological: Reports: Weakness - Patient Data Vitals - Most Recent: Last Vital Signs Temp 37.5 C 01/25/18 00:27 Pulse 71 01/24/18 05:54 Resp 16 01/24/18 05:54 BP 139/63 01/24/18 05:54 Pulse Ox 93 L 01/24/18 05:54 Weight - Most Recent: 59.874 kg I&O - Last 24 Hours: Intake & Output 01/25/18 01/26/18 01/26/18 22:59 06:59 14:59 Output Total 350 Balance -350 Med Orders - Current: Current Medications Acetaminophen (Tylenol Arthritis Pain) 650 mg PO BID [facility] Last Admin: 01/26/18 07:53 Dose: 650 mg Hydrocodone Bitart/Acetaminophen ([place] 325-5 Mg) 1 tab PO Q4H PRN PRN Reason: MODERATE PAIN Last Admin: 01/26/18 05:00 Dose: 1 tab Bisacodyl (Dulcolax) 10 mg RECTAL DAILY PRN PRN Reason: CONSTIPATION Last Admin: 12/17/17 05:15 Dose: 10 mg Citalopram Hydrobromide (Celexa) 20 mg PO DAILY [facility] Last Admin: 01/26/18 07:52 Dose: 20 mg Fentanyl (Duragesic) 50 mcg TRDERM Q72H [facility] Last Admin: 01/26/18 08:35 Dose: 50 mcg Loperamide HCl (Imodium) 2 mg PO Q4H PRN PRN Reason: DIARRHEA Lorazepam (Ativan) 0.5 mg PO Q8H PRN PRN Reason: ANXIETY Last Admin: 01/23/18 19:45 Dose: 0.5 mg Magnesium Hydroxide (Milk Of Magnesia) 30 ml PO DAILY [facility] Last Admin: 01/26/18 07:53 Dose: 30 ml Miscellaneous Information (Remove Patch) 1 ea TRDERM Q72H [facility] Last Admin: 01/26/18 08:34 Dose: 1 ea Morphine Sulfate (Morphine) 2 mg SUBCUT Q4H PRN PRN Reason: PAIN Last Admin: 01/23/18 19:37 Dose: 2 mg Seroquel 400mg (Tablets) 1 each PO BEDTIME [facility] Last Admin: 01/25/18 19:49 Dose: 1 each Non-Formulary Medication (Metronidazole [Metronidazole 0.75% Cream]) 1 applic TOP DAILY [facility] Last Admin: 01/26/18 07:53 Dose: 1 applic Quetiapine Fumarate (Seroquel) 50 mg PO BEDTIME [facility] Last Admin: 01/25/18 19:49 Dose: 50 mg Quetiapine Fumarate (Seroquel) 200 mg PO DAILY@0800,1200 [facility] Last Admin: 01/26/18 07:52 Dose: 200 mg Quetiapine Fumarate (Seroquel) 50 mg PO DAILY@0800,1200 [facility] Last Admin: 01/26/18 07:52 Dose: 50 mg Scopolamine (Transderm-Scop) 1.5 mg TOP Q72H PRN PRN Reason: SECRETIONS Senna/Docusate Sodium (Senna Plus) 1 tab PO BID@0800,1700 [facility] Last Admin: 01/26/18 07:53 Dose: 1 tab Discontinued Medications Acetaminophen (Tylenol) 650 mg PO BID [facility] Last Admin: 10/19/17 07:20 Dose: 650 mg Ciprofloxacin (Ciprofloxacin Hcl) 250 mg PO BID [facility] Stop: 12/04/17 20:01 Last Admin: 12/04/17 20:30 Dose: Not Given Fentanyl (Duragesic) 25 mcg TRDERM Q72H [facility] Last Admin: 12/01/17 08:00 Dose: 25 mcg Fentanyl (Duragesic) 12 mcg TRDERM Q72H [facility] Last Admin: 12/01/17 08:00 Dose: 12 mcg Fentanyl (Duragesic) 12 mcg TRDERM Q72H [facility] Last Admin: 12/03/17 20:20 Dose: Not Given Fentanyl (Duragesic) 25 mcg TRDERM ONETIME ONE Stop: 12/02/17 18:31 Last Admin: 12/02/17 18:37 Dose: 25 mcg Fentanyl (Duragesic) 50 mcg TRDERM Q72H [facility] Last Admin: 12/04/17 11:45 Dose: Not Given Fentanyl (Duragesic) 50 mcg TRDERM Q72H [facility] Last Admin: 12/16/17 09:19 Dose: 50 mcg Fentanyl (Duragesic) 50 mcg TRDERM Q72H [facility] Last Admin: 05/14/18 12:25 Dose: 50 mcg Lactated Ringer's (Ringers, Lactated) 1,000 mls @ 75 mls/hr IV ASDIRECTED [facility] Lorazepam (Ativan) Confirm Administered Dose 2 mg .ROUTE .STK-MED ONE Stop: 10/10/17 19:54 Last Admin: 10/10/17 20:02 Dose: 2 mg Lorazepam (Ativan) 1 mg IM Q4H PRN PRN Reason: Agitation Last Admin: 01/07/18 19:07 Dose: 1 mg Magnesium Hydroxide (Milk Of Magnesia) Confirm Administered Dose 30 ml .ROUTE .STK-MED ONE Stop: 12/09/17 15:52 Last Admin: 12/09/17 15:59 Dose: 30 ml Magnesium Hydroxide (Milk Of Magnesia) Confirm Administered Dose 30 ml .ROUTE .STK-MED ONE Stop: 12/17/17 10:02 Last Admin: 12/17/17 10:11 Dose: 30 ml Magnesium Hydroxide (Milk Of Magnesia) 30 ml PO BEDTIME [facility] Last Admin: 12/20/17 00:06 Dose: Not Given Magnesium Hydroxide (Milk Of Magnesia) 30 ml PO DAILY@0800 [facility] Last Admin: 12/20/17 10:13 Dose: 30 ml Miscellaneous Information (Remove Patch) 1 ea TRDERM Q72H [facility] Last Admin: 12/01/17 08:00 Dose: 1 ea Miscellaneous Information (Remove Patch) 1 ea TRDERM Q72H [facility] Last Admin: 01/21/18 08:45 Dose: Not Given Senna (Senna) 8.6 mg PO BID@0800,1700 [facility] Last Admin: 12/18/17 08:51 Dose: 8.6 mg Senna/Docusate Sodium (Senna Plus) 1 tab PO BID@0800,1700 [facility] Last Admin: 12/08/17 07:19 Dose: 1 tab Senna/Docusate Sodium (Senna Plus) 1 tab PO BID [facility] Sodium Biphosphate/Sodium Phosphate (Fleet Enema) 133 ml RECTAL ONETIME ONE Stop: 12/09/17 15:59 Last Admin: 12/09/17 16:25 Dose: 1 bottle - Exam General: Obtunded - Problem List & Annotations (1) Comfort measures only status SNOMED Code(s): 71615859439631 Code(s): Z51.5 - ENCOUNTER FOR PALLIATIVE CARE Status: Chronic Priority: High Current Visit: Yes (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 Code(s): F03.91 - UNSPECIFIED DEMENTIA WITH BEHAVIORAL DISTURBANCE Status: Chronic Priority: High Current Visit: Yes Qualifiers: Dementia behavioral disturbance: with behavioral disturbance Qualified Code (s): F02.81 - Dementia in other diseases classified elsewhere with behavioral disturbance (3) Diabetes mellitus SNOMED Code(s): 14411650 Code(s): E11.9 - TYPE 2 DIABETES MELLITUS WITHOUT COMPLICATIONS Status: Chronic Priority: Medium Current Visit: Yes Qualifiers: Diabetes mellitus type: type 2 Diabetes mellitus usp insulin use: without bonderizer operator use Diabetes mellitus complication status: with hyperglycemia Qualified Code(s): E11.65 - Type 2 diabetes mellitus with hyperglycemia (4) Incontinence overflow, urine SNOMED Code(s): 910839184 Code(s): N39.490 - OVERFLOW INCONTINENCE Status: Chronic Priority: Medium Current Visit: Yes (5) Neurogenic bladder SNOMED Code(s): 857228091 Code(s): N31.9 - NEUROMUSCULAR DYSFUNCTION OF BLADDER, UNSPECIFIED Status: Chronic Priority: Medium Current Visit: Yes (6) Palliative care patient SNOMED Code(s): 360612818 Code(s): Z51.5 - ENCOUNTER FOR PALLIATIVE CARE Status: Chronic Priority: High Current Visit: Yes (7) Paranoid schizophrenia, chronic condition SNOMED Code(s): 59283904 Code(s): F20.0 - PARANOID SCHIZOPHRENIA Status: Chronic Priority: High Current Visit: Yes - Problem List Review Problem List Initiated/Reviewed/Updated: Yes - Plan Plan:: Patient to continue current diet and management. No changes to supportive care. We will also continue to monitor for any bed sores. Patient resting well and is very stable. 11/09/17 No changes to status at this time. Patient is resting comfortably. He does eat with help from nursing staff. 12/17/17 Patient stable and continues on comfort cares. No changes to medications or status. Continue current diet and monitoring. 01/04/18 No changes to care of patient. We will continue comfort cares with current diet. 01/11/18 Patient continues with comfort cares and is eating routinely with certain nurses. 01/19/18 No changes at this time. We will continue current cares and comfort cares. 01/25/18 We will continue comfort cares. Continue feeding as routine and oral cares. Continue to monitor bed sores and continue turning.
[2018-01-26] MEDS: SEROQUEL 400 MG PO SCH (20:00)
[2018-01-27] MEDS: Citalopram 20 MG Tab PO SCH (07:26)
[2018-01-27] MEDS: Non-Formulary Medication 1 Each (Metronidazole [Metronidazole 0.75% Cream] 1 APPLIC) TOP SCH (07:26)
[2018-01-27] MEDS: SENNOSIDES PO SCH ×2 (07:27→17:13)
[2018-01-27] MEDS: Acetaminophen 650 MG Tab.ER PO SCH ×2 (07:27→20:11)
[2018-01-27] MEDS: Magnesium Hydroxide 400 MG/5 ML Susp 30 ML Cup PO SCH (07:27)
[2018-01-27] MEDS: DOCUSATE PO SCH ×2 (07:27→17:13)
[2018-01-27] MEDS: SEROQUEL 400 MG PO SCH (20:09)
[2018-01-27] MEDS: Acetaminophen/HYDROcodone 325-5 MG Tab PO PRN (20:30)
[2018-01-27] MEDS: LORazepam 0.5 MG Tab PO PRN (22:11)
[2018-01-28] MEDS: Acetaminophen/HYDROcodone 325-5 MG Tab PO PRN ×4 (07:15→19:42)
[2018-01-28] MEDS: Non-Formulary Medication 1 Each (Metronidazole [Metronidazole 0.75% Cream] 1 APPLIC) TOP SCH (07:28)
[2018-01-28] MEDS: Magnesium Hydroxide 400 MG/5 ML Susp 30 ML Cup PO SCH (08:19)
[2018-01-28] MEDS: Citalopram 20 MG Tab PO SCH (08:19)
[2018-01-28] MEDS: DOCUSATE PO SCH ×2 (08:19→16:13)
[2018-01-28] MEDS: SENNOSIDES PO SCH ×2 (08:19→16:13)
[2018-01-28] MEDS: Acetaminophen 650 MG Tab.ER PO SCH ×2 (08:20→19:48)
[2018-01-28] MEDS: LORazepam 0.5 MG Tab PO PRN (19:41)
[2018-01-28] MEDS: SEROQUEL 400 MG PO SCH (19:42)
[2018-01-29] MEDS: Acetaminophen/HYDROcodone 325-5 MG Tab PO PRN ×3 (07:30→16:30)
[2018-01-29] MEDS: Citalopram 20 MG Tab PO SCH (08:00)
[2018-01-29] MEDS: Acetaminophen 650 MG Tab.ER PO SCH ×2 (08:00→20:59)
[2018-01-29] MEDS: DOCUSATE PO SCH ×2 (08:00→17:43)
[2018-01-29] MEDS: Magnesium Hydroxide 400 MG/5 ML Susp 30 ML Cup PO SCH (08:00)
[2018-01-29] MEDS: Non-Formulary Medication 1 Each (Metronidazole [Metronidazole 0.75% Cream] 1 APPLIC) TOP SCH (08:00)
[2018-01-29] MEDS: SENNOSIDES PO SCH ×2 (08:00→17:43)
[2018-01-29] MEDS: fentaNYL 50 MCG/HR Transdermal Patch TRDERM SCH (09:27)
[2018-01-29] MEDS: SEROQUEL 400 MG PO SCH (20:59)
[2018-01-30] MEDS: Acetaminophen/HYDROcodone 325-5 MG Tab PO PRN ×2 (07:20→20:05)
[2018-01-30] MEDS: Citalopram 20 MG Tab PO SCH (07:21)
[2018-01-30] MEDS: Magnesium Hydroxide 400 MG/5 ML Susp 30 ML Cup PO SCH (07:23)
[2018-01-30] MEDS: SENNOSIDES PO SCH ×2 (07:28→17:33)
[2018-01-30] MEDS: Acetaminophen 650 MG Tab.ER PO SCH ×2 (07:28→20:05)
[2018-01-30] MEDS: DOCUSATE PO SCH ×2 (07:28→17:33)
[2018-01-30] MEDS: Non-Formulary Medication 1 Each (Metronidazole [Metronidazole 0.75% Cream] 1 APPLIC) TOP SCH (09:14)
[2018-01-30] MEDS: SEROQUEL 400 MG PO SCH (20:05)
[2018-01-30] MEDS: LORazepam 0.5 MG Tab PO PRN (20:05)
[2018-01-31] MEDS: Acetaminophen/HYDROcodone 325-5 MG Tab PO PRN ×2 (08:28→19:59)
[2018-01-31] MEDS: Citalopram 20 MG Tab PO SCH (08:29)
[2018-01-31] MEDS: Acetaminophen 650 MG Tab.ER PO SCH ×2 (08:40→19:59)
[2018-01-31] MEDS: Magnesium Hydroxide 400 MG/5 ML Susp 30 ML Cup PO SCH (08:40)
[2018-01-31] MEDS: SENNOSIDES PO SCH ×2 (08:40→17:22)
[2018-01-31] MEDS: DOCUSATE PO SCH ×2 (08:40→17:22)
[2018-01-31] MEDS: Non-Formulary Medication 1 Each (Metronidazole [Metronidazole 0.75% Cream] 1 APPLIC) TOP SCH (09:00)
[2018-01-31] MEDS: LORazepam 0.5 MG Tab PO PRN (19:59)
[2018-01-31] MEDS: SEROQUEL 400 MG PO SCH (19:59)
[2018-02-01] MEDS: DOCUSATE PO SCH ×2 (07:26→17:28)
[2018-02-01] MEDS: Citalopram 20 MG Tab PO SCH (07:26)
[2018-02-01] MEDS: Magnesium Hydroxide 400 MG/5 ML Susp 30 ML Cup PO SCH (07:26)
[2018-02-01] MEDS: SENNOSIDES PO SCH ×2 (07:26→17:28)
[2018-02-01] MEDS: Non-Formulary Medication 1 Each (Metronidazole [Metronidazole 0.75% Cream] 1 APPLIC) TOP SCH (07:26)
[2018-02-01] MEDS: Acetaminophen 650 MG Tab.ER PO SCH ×2 (07:27→20:40)
[2018-02-01] MEDS: fentaNYL 50 MCG/HR Transdermal Patch TRDERM SCH (08:00)
[2018-02-01] MEDS: SEROQUEL 400 MG PO SCH (20:40)
[2018-02-01] MEDS: LORazepam 0.5 MG Tab PO PRN (20:40)
[2018-02-01] MEDS: Acetaminophen/HYDROcodone 325-5 MG Tab PO PRN (20:40)
[2018-02-02] MEDS: Acetaminophen/HYDROcodone 325-5 MG Tab PO PRN ×3 (07:20→20:56)
[2018-02-02] MEDS: SENNOSIDES PO SCH ×2 (08:16→17:15)
[2018-02-02] MEDS: DOCUSATE PO SCH ×2 (08:16→17:15)
[2018-02-02] MEDS: Citalopram 20 MG Tab PO SCH (08:16)
[2018-02-02] MEDS: Acetaminophen 650 MG Tab.ER PO SCH ×2 (08:16→20:55)
[2018-02-02] MEDS: Magnesium Hydroxide 400 MG/5 ML Susp 30 ML Cup PO SCH (08:16)
[2018-02-02] MEDS: Non-Formulary Medication 1 Each (Metronidazole [Metronidazole 0.75% Cream] 1 APPLIC) TOP SCH (08:16)
[2018-02-02] MEDS: SEROQUEL 400 MG PO SCH (20:55)
[2018-02-02] MEDS: LORazepam 0.5 MG Tab PO PRN (20:56)
[2018-02-03] MEDS: Citalopram 20 MG Tab PO SCH (07:49)
[2018-02-03] MEDS: Magnesium Hydroxide 400 MG/5 ML Susp 30 ML Cup PO SCH (07:50)
[2018-02-03] MEDS: Acetaminophen 650 MG Tab.ER PO SCH ×2 (07:50→20:26)
[2018-02-03] MEDS: SENNOSIDES PO SCH ×2 (07:51→17:31)
[2018-02-03] MEDS: DOCUSATE PO SCH ×2 (07:51→17:31)
[2018-02-03] MEDS: Non-Formulary Medication 1 Each (Metronidazole [Metronidazole 0.75% Cream] 1 APPLIC) TOP SCH (09:00)
[2018-02-03] MEDS: Acetaminophen/HYDROcodone 325-5 MG Tab PO PRN ×2 (17:30→20:45)
[2018-02-03] MEDS: SEROQUEL 400 MG PO SCH (20:26)
[2018-02-03] MEDS: LORazepam 0.5 MG Tab PO PRN (20:45)
[2018-02-04] MEDS: Acetaminophen/HYDROcodone 325-5 MG Tab PO PRN ×3 (08:09→22:15)
[2018-02-04] MEDS: Magnesium Hydroxide 400 MG/5 ML Susp 30 ML Cup PO SCH (08:09)
[2018-02-04] MEDS: Non-Formulary Medication 1 Each (Metronidazole [Metronidazole 0.75% Cream] 1 APPLIC) TOP SCH (08:09)
[2018-02-04] MEDS: Citalopram 20 MG Tab PO SCH (08:10)
[2018-02-04] MEDS: DOCUSATE PO SCH ×2 (08:11→17:00)
[2018-02-04] MEDS: SENNOSIDES PO SCH ×2 (08:11→17:00)
[2018-02-04] MEDS: Acetaminophen 650 MG Tab.ER PO SCH ×2 (08:12→19:34)
[2018-02-04] MEDS: fentaNYL 50 MCG/HR Transdermal Patch TRDERM SCH (11:20)
--- NOTE | 2018-02-04 19:30 | PCM.PN ---
- General Info Date of Service: 02/04/18 Functional Status: Reports: Pain Controlled, Other (patient obtunded, not responding to verbal stimuli) - Patient Data Vitals - Most Recent: Last Vital Signs Temp 37.5 C 01/25/18 00:27 Pulse 71 01/24/18 05:54 Resp 16 01/24/18 05:54 BP 139/63 01/24/18 05:54 Pulse Ox 93 L 01/24/18 05:54 Weight - Most Recent: 59.874 kg I&O - Last 24 Hours: Intake & Output 02/04/18 02/04/18 02/04/18 06:59 14:59 22:59 Output Total 400 Balance -400 Med Orders - Current: Current Medications Acetaminophen (Tylenol Arthritis Pain) 650 mg PO BID [facility] Last Admin: 02/04/18 08:12 Dose: Not Given Hydrocodone Bitart/Acetaminophen ([place] 325-5 Mg) 1 tab PO Q4H PRN PRN Reason: MODERATE PAIN Last Admin: 02/04/18 08:09 Dose: 1 tab Bisacodyl (Dulcolax) 10 mg RECTAL DAILY PRN PRN Reason: CONSTIPATION Last Admin: 12/17/17 05:15 Dose: 10 mg Citalopram Hydrobromide (Celexa) 20 mg PO DAILY [facility] Last Admin: 02/04/18 08:10 Dose: 20 mg Fentanyl (Duragesic) 50 mcg TRDERM Q72H [facility] Last Admin: 02/04/18 11:20 Dose: 50 mcg Loperamide HCl (Imodium) 2 mg PO Q4H PRN PRN Reason: DIARRHEA Lorazepam (Ativan) 0.5 mg PO Q8H PRN PRN Reason: ANXIETY Last Admin: 02/03/18 20:45 Dose: 0.5 mg Magnesium Hydroxide (Milk Of Magnesia) 30 ml PO DAILY [facility] Last Admin: 02/04/18 08:09 Dose: 30 ml Miscellaneous Information (Remove Patch) 1 ea TRDERM Q72H [facility] Last Admin: 02/04/18 11:20 Dose: 1 ea Morphine Sulfate (Morphine) 2 mg SUBCUT Q4H PRN PRN Reason: PAIN Last Admin: 01/23/18 19:37 Dose: 2 mg Seroquel 400mg (Tablets) 1 each PO BEDTIME [facility] Last Admin: 02/03/18 20:26 Dose: 1 each Non-Formulary Medication (Metronidazole [Metronidazole 0.75% Cream]) 1 applic TOP DAILY [facility] Last Admin: 02/04/18 08:09 Dose: 1 applic Quetiapine Fumarate (Seroquel) 50 mg PO BEDTIME [facility] Last Admin: 02/03/18 20:26 Dose: 50 mg Quetiapine Fumarate (Seroquel) 200 mg PO DAILY@0800,1200 [facility] Last Admin: 02/04/18 11:27 Dose: 200 mg Quetiapine Fumarate (Seroquel) 50 mg PO DAILY@0800,1200 [facility] Last Admin: 02/04/18 11:27 Dose: 50 mg Scopolamine (Transderm-Scop) 1.5 mg TOP Q72H PRN PRN Reason: SECRETIONS Senna/Docusate Sodium (Senna Plus) 1 tab PO BID@0800,1700 [facility] Last Admin: 02/04/18 17:00 Dose: 1 tab Discontinued Medications Acetaminophen (Tylenol) 650 mg PO BID [facility] Last Admin: 10/19/17 07:20 Dose: 650 mg Ciprofloxacin (Ciprofloxacin Hcl) 250 mg PO BID [facility] Stop: 12/04/17 20:01 Last Admin: 12/04/17 20:30 Dose: Not Given Fentanyl (Duragesic) 25 mcg TRDERM Q72H [facility] Last Admin: 12/01/17 08:00 Dose: 25 mcg Fentanyl (Duragesic) 12 mcg TRDERM Q72H [facility] Last Admin: 12/01/17 08:00 Dose: 12 mcg Fentanyl (Duragesic) 12 mcg TRDERM Q72H [facility] Last Admin: 12/03/17 20:20 Dose: Not Given Fentanyl (Duragesic) 25 mcg TRDERM ONETIME ONE Stop: 12/02/17 18:31 Last Admin: 12/02/17 18:37 Dose: 25 mcg Fentanyl (Duragesic) 50 mcg TRDERM Q72H [facility] Last Admin: 12/04/17 11:45 Dose: Not Given Fentanyl (Duragesic) 50 mcg TRDERM Q72H [facility] Last Admin: 12/16/17 09:19 Dose: 50 mcg Fentanyl (Duragesic) 50 mcg TRDERM Q72H [facility] Last Admin: 01/18/18 12:25 Dose: 50 mcg Lactated Ringer's (Ringers, Lactated) 1,000 mls @ 75 mls/hr IV ASDIRECTED [facility] Lorazepam (Ativan) Confirm Administered Dose 2 mg .ROUTE .STK-MED ONE Stop: 10/10/17 19:54 Last Admin: 10/10/17 20:02 Dose: 2 mg Lorazepam (Ativan) 1 mg IM Q4H PRN PRN Reason: Agitation Last Admin: 01/07/18 19:07 Dose: 1 mg Magnesium Hydroxide (Milk Of Magnesia) Confirm Administered Dose 30 ml .ROUTE .STK-MED ONE Stop: 12/09/17 15:52 Last Admin: 12/09/17 15:59 Dose: 30 ml Magnesium Hydroxide (Milk Of Magnesia) Confirm Administered Dose 30 ml .ROUTE .STK-MED ONE Stop: 12/17/17 10:02 Last Admin: 12/17/17 10:11 Dose: 30 ml Magnesium Hydroxide (Milk Of Magnesia) 30 ml PO BEDTIME [facility] Last Admin: 12/20/17 00:06 Dose: Not Given Magnesium Hydroxide (Milk Of Magnesia) 30 ml PO DAILY@0800 [facility] Last Admin: 12/20/17 10:13 Dose: 30 ml Miscellaneous Information (Remove Patch) 1 ea TRDERM Q72H [facility] Last Admin: 12/01/17 08:00 Dose: 1 ea Miscellaneous Information (Remove Patch) 1 ea TRDERM Q72H [facility] Last Admin: 01/21/18 08:45 Dose: Not Given Senna (Senna) 8.6 mg PO BID@0800,1700 [facility] Last Admin: 12/18/17 08:51 Dose: 8.6 mg Senna/Docusate Sodium (Senna Plus) 1 tab PO BID@0800,1700 [facility] Last Admin: 12/08/17 07:19 Dose: 1 tab Senna/Docusate Sodium (Senna Plus) 1 tab PO BID [facility] Sodium Biphosphate/Sodium Phosphate (Fleet Enema) 133 ml RECTAL ONETIME ONE Stop: 12/09/17 15:59 Last Admin: 12/09/17 16:25 Dose: 1 bottle - Exam General: Obtunded - Problem List & Annotations (1) Comfort measures only status SNOMED Code(s): 87476854024618 Code(s): Z51.5 - ENCOUNTER FOR PALLIATIVE CARE Status: Chronic Priority: High Current Visit: Yes (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 Code(s): F03.91 - UNSPECIFIED DEMENTIA WITH BEHAVIORAL DISTURBANCE Status: Chronic Priority: High Current Visit: Yes Qualifiers: Dementia behavioral disturbance: with behavioral disturbance Qualified Code (s): F02.81 - Dementia in other diseases classified elsewhere with behavioral disturbance (3) Diabetes mellitus SNOMED Code(s): 45368487 Code(s): E11.9 - TYPE 2 DIABETES MELLITUS WITHOUT COMPLICATIONS Status: Chronic Priority: Medium Current Visit: Yes Qualifiers: Diabetes mellitus type: type 2 Diabetes mellitus exterminator termite insulin use: without chcf use Diabetes mellitus complication status: with hyperglycemia Qualified Code(s): E11.65 - Type 2 diabetes mellitus with hyperglycemia (4) Incontinence overflow, urine SNOMED Code(s): 766443046 Code(s): N39.490 - OVERFLOW INCONTINENCE Status: Chronic Priority: Medium Current Visit: Yes (5) Neurogenic bladder SNOMED Code(s): 879107018 Code(s): N31.9 - NEUROMUSCULAR DYSFUNCTION OF BLADDER, UNSPECIFIED Status: Chronic Priority: Medium Current Visit: Yes (6) Palliative care patient SNOMED Code(s): 161815738 Code(s): Z51.5 - ENCOUNTER FOR PALLIATIVE CARE Status: Chronic Priority: High Current Visit: Yes (7) Paranoid schizophrenia, chronic condition SNOMED Code(s): 91023847 Code(s): F20.0 - PARANOID SCHIZOPHRENIA Status: Chronic Priority: High Current Visit: Yes - Problem List Review Problem List Initiated/Reviewed/Updated: Yes - Plan Plan:: Patient to continue current diet and management. No changes to supportive care. We will also continue to monitor for any bed sores. Patient resting well and is very stable. 11/09/17 No changes to status at this time. Patient is resting comfortably. He does eat with help from nursing staff. 12/17/17 Patient stable and continues on comfort cares. No changes to medications or status. Continue current diet and monitoring. 01/04/18 No changes to care of patient. We will continue comfort cares with current diet. 01/11/18 Patient continues with comfort cares and is eating routinely with certain nurses. 01/19/18 No changes at this time. We will continue current cares and comfort cares. 01/25/18 We will continue comfort cares. Continue feeding as routine and oral cares. Continue to monitor bed sores and continue turning. 02/04/18 Patient is not as responsive. We will continue feeding as tolerated if alert and continue current cares and pain management. Patient does appear much weaker and thinner.
[2018-02-04] MEDS: LORazepam 0.5 MG Tab PO PRN (19:34)
[2018-02-04] MEDS: SEROQUEL 400 MG PO SCH (19:34)
[2018-02-05] MEDS: Acetaminophen/HYDROcodone 325-5 MG Tab PO PRN ×3 (01:28→20:29)
[2018-02-05] MEDS: DOCUSATE PO SCH ×2 (13:03→18:42)
[2018-02-05] MEDS: SENNOSIDES PO SCH ×2 (13:03→18:42)
[2018-02-05] MEDS: Magnesium Hydroxide 400 MG/5 ML Susp 30 ML Cup PO SCH (13:03)
[2018-02-05] MEDS: Acetaminophen 650 MG Tab.ER PO SCH ×2 (13:03→20:29)
[2018-02-05] MEDS: Citalopram 20 MG Tab PO SCH (13:05)
[2018-02-05] MEDS: Non-Formulary Medication 1 Each (Metronidazole [Metronidazole 0.75% Cream] 1 APPLIC) TOP SCH (13:05)
[2018-02-05] MEDS: SEROQUEL 400 MG PO SCH (20:29)
[2018-02-05] MEDS: LORazepam 0.5 MG Tab PO PRN (20:30)
[2018-02-06] MEDS: Bisacodyl 10 MG Supp RECTAL PRN (06:10)
[2018-02-06] MEDS: SENNOSIDES PO SCH ×2 (07:58→17:03)
[2018-02-06] MEDS: DOCUSATE PO SCH ×2 (07:58→17:03)
[2018-02-06] MEDS: Acetaminophen 650 MG Tab.ER PO SCH ×2 (07:58→19:28)
[2018-02-06] MEDS: Non-Formulary Medication 1 Each (Metronidazole [Metronidazole 0.75% Cream] 1 APPLIC) TOP SCH (07:59)
[2018-02-06] MEDS: Citalopram 20 MG Tab PO SCH (07:59)
[2018-02-06] MEDS: Magnesium Hydroxide 400 MG/5 ML Susp 30 ML Cup PO SCH (07:59)
[2018-02-06] MEDS: SEROQUEL 400 MG PO SCH (19:29)
[2018-02-06] MEDS: LORazepam 0.5 MG Tab PO PRN (19:30)
[2018-02-06] MEDS: Acetaminophen/HYDROcodone 325-5 MG Tab PO PRN (19:31)
[2018-02-07] MEDS: DOCUSATE PO SCH ×2 (07:39→17:46)
[2018-02-07] MEDS: Acetaminophen 650 MG Tab.ER PO SCH ×2 (07:39→20:07)
[2018-02-07] MEDS: SENNOSIDES PO SCH ×2 (07:39→17:46)
[2018-02-07] MEDS: Magnesium Hydroxide 400 MG/5 ML Susp 30 ML Cup PO SCH (07:40)
[2018-02-07] MEDS: Citalopram 20 MG Tab PO SCH (07:40)
[2018-02-07] MEDS: Non-Formulary Medication 1 Each (Metronidazole [Metronidazole 0.75% Cream] 1 APPLIC) TOP SCH (07:40)
[2018-02-07] MEDS: fentaNYL 50 MCG/HR Transdermal Patch TRDERM SCH (08:39)
[2018-02-07] MEDS: SEROQUEL 400 MG PO SCH (20:07)
[2018-02-08] MEDS: Magnesium Hydroxide 400 MG/5 ML Susp 30 ML Cup PO SCH (07:08)
[2018-02-08] MEDS: Citalopram 20 MG Tab PO SCH (07:08)
[2018-02-08] MEDS: Non-Formulary Medication 1 Each (Metronidazole [Metronidazole 0.75% Cream] 1 APPLIC) TOP SCH (07:08)
[2018-02-08] MEDS: Acetaminophen 650 MG Tab.ER PO SCH (07:09)
[2018-02-08] MEDS: SENNOSIDES PO SCH (07:09)
[2018-02-08] MEDS: DOCUSATE PO SCH (07:09)
[2018-02-09] MEDS: DOCUSATE PO SCH ×3 (02:09→18:00)
[2018-02-09] MEDS: SENNOSIDES PO SCH ×3 (02:09→18:00)
[2018-02-09] MEDS: SEROQUEL 400 MG PO SCH ×2 (02:09→20:01)
[2018-02-09] MEDS: Acetaminophen 650 MG Tab.ER PO SCH ×3 (02:10→20:01)
[2018-02-09] MEDS: Acetaminophen/HYDROcodone 325-5 MG Tab PO PRN ×4 (07:15→20:02)
[2018-02-09] MEDS: Non-Formulary Medication 1 Each (Metronidazole [Metronidazole 0.75% Cream] 1 APPLIC) TOP SCH (07:15)
[2018-02-09] MEDS: Magnesium Hydroxide 400 MG/5 ML Susp 30 ML Cup PO SCH (07:15)
[2018-02-09] MEDS: Citalopram 20 MG Tab PO SCH (07:15)
[2018-02-09] MEDS: LORazepam 0.5 MG Tab PO PRN (20:02)
[2018-02-10] MEDS: Citalopram 20 MG Tab PO SCH (08:10)
[2018-02-10] MEDS: Magnesium Hydroxide 400 MG/5 ML Susp 30 ML Cup PO SCH (08:11)
[2018-02-10] MEDS: Acetaminophen 650 MG Tab.ER PO SCH ×2 (08:11→20:05)
[2018-02-10] MEDS: SENNOSIDES PO SCH ×3 (08:11→20:05)
[2018-02-10] MEDS: DOCUSATE PO SCH ×3 (08:11→20:05)
[2018-02-10] MEDS: Acetaminophen/HYDROcodone 325-5 MG Tab PO PRN (08:13)
[2018-02-10] MEDS: Non-Formulary Medication 1 Each (Metronidazole [Metronidazole 0.75% Cream] 1 APPLIC) TOP SCH (08:14)
[2018-02-10] MEDS: fentaNYL 50 MCG/HR Transdermal Patch TRDERM SCH (08:55)
[2018-02-10] MEDS: LORazepam 0.5 MG Tab PO PRN (12:00)
[2018-02-10] MEDS: SEROQUEL 400 MG PO SCH (20:05)
[2018-02-11] MEDS: Acetaminophen/HYDROcodone 325-5 MG Tab PO PRN ×3 (05:15→20:28)
[2018-02-11] MEDS: Citalopram 20 MG Tab PO SCH (10:43)
[2018-02-11] MEDS: Magnesium Hydroxide 400 MG/5 ML Susp 30 ML Cup PO SCH (10:43)
[2018-02-11] MEDS: Acetaminophen 650 MG Tab.ER PO SCH ×2 (10:44→20:27)
[2018-02-11] MEDS: DOCUSATE PO SCH ×2 (10:44→20:27)
[2018-02-11] MEDS: SENNOSIDES PO SCH ×2 (10:44→20:27)
[2018-02-11] MEDS: Non-Formulary Medication 1 Each (Metronidazole [Metronidazole 0.75% Cream] 1 APPLIC) TOP SCH (10:52)
[2018-02-11] MEDS: SEROQUEL 400 MG PO SCH (20:27)
[2018-02-11] MEDS: LORazepam 0.5 MG Tab PO PRN (20:28)
[2018-02-12] MEDS: Citalopram 20 MG Tab PO SCH (07:23)
[2018-02-12] MEDS: Acetaminophen 650 MG Tab.ER PO SCH ×2 (07:23→19:15)
[2018-02-12] MEDS: Acetaminophen/HYDROcodone 325-5 MG Tab PO PRN ×3 (07:23→22:30)
[2018-02-12] MEDS: SENNOSIDES PO SCH ×2 (07:23→19:15)
[2018-02-12] MEDS: DOCUSATE PO SCH ×2 (07:23→19:15)
[2018-02-12] MEDS: Magnesium Hydroxide 400 MG/5 ML Susp 30 ML Cup PO SCH (07:31)
[2018-02-12] MEDS: Non-Formulary Medication 1 Each (Metronidazole [Metronidazole 0.75% Cream] 1 APPLIC) TOP SCH (07:31)
[2018-02-12] MEDS: Morphine 2 MG/ML Syringe SUBCUT PRN (13:44)
[2018-02-12] MEDS: SEROQUEL 400 MG PO SCH (19:15)
[2018-02-12] MEDS: LORazepam 0.5 MG Tab PO PRN (19:15)
[2018-02-13] MEDS: Acetaminophen/HYDROcodone 325-5 MG Tab PO PRN ×3 (02:29→19:00)
[2018-02-13] MEDS: Morphine 2 MG/ML Syringe SUBCUT PRN (08:58)
[2018-02-13] MEDS: Acetaminophen 650 MG Tab.ER PO SCH ×2 (08:58→19:00)
[2018-02-13] MEDS: DOCUSATE PO SCH ×2 (08:58→17:59)
[2018-02-13] MEDS: SENNOSIDES PO SCH ×2 (08:58→17:59)
[2018-02-13] MEDS: Citalopram 20 MG Tab PO SCH (08:58)
[2018-02-13] MEDS: LORazepam 0.5 MG Tab PO PRN ×2 (08:59→19:00)
[2018-02-13] MEDS: Non-Formulary Medication 1 Each (Metronidazole [Metronidazole 0.75% Cream] 1 APPLIC) TOP SCH (08:59)
[2018-02-13] MEDS: fentaNYL 50 MCG/HR Transdermal Patch TRDERM SCH (09:00)
[2018-02-13] MEDS: Magnesium Hydroxide 400 MG/5 ML Susp 30 ML Cup PO SCH (09:00)
[2018-02-13] MEDS: SEROQUEL 400 MG PO SCH (19:00)
[2018-02-14] MEDS: Acetaminophen 650 MG Tab.ER PO SCH ×2 (08:19→19:45)
[2018-02-14] MEDS: SENNOSIDES PO SCH ×2 (08:19→18:04)
[2018-02-14] MEDS: DOCUSATE PO SCH ×2 (08:19→18:04)
[2018-02-14] MEDS: Citalopram 20 MG Tab PO SCH (08:19)
[2018-02-14] MEDS: Non-Formulary Medication 1 Each (Metronidazole [Metronidazole 0.75% Cream] 1 APPLIC) TOP SCH (08:20)
[2018-02-14] MEDS: Acetaminophen/HYDROcodone 325-5 MG Tab PO PRN ×2 (08:20→19:15)
[2018-02-14] MEDS: Magnesium Hydroxide 400 MG/5 ML Susp 30 ML Cup PO SCH (08:20)
[2018-02-14] MEDS: Morphine 2 MG/ML Syringe SUBCUT PRN (14:43)
[2018-02-14] MEDS: SEROQUEL 400 MG PO SCH (19:45)
[2018-02-15] MEDS: Magnesium Hydroxide 400 MG/5 ML Susp 30 ML Cup PO SCH (08:28)
[2018-02-15] MEDS: Non-Formulary Medication 1 Each (Metronidazole [Metronidazole 0.75% Cream] 1 APPLIC) TOP SCH (08:28)
[2018-02-15] MEDS: DOCUSATE PO SCH ×2 (08:29→20:54)
[2018-02-15] MEDS: SENNOSIDES PO SCH ×2 (08:29→20:54)
[2018-02-15] MEDS: Acetaminophen 650 MG Tab.ER PO SCH ×2 (08:29→20:53)
[2018-02-15] MEDS: Citalopram 20 MG Tab PO SCH (08:29)
[2018-02-15] MEDS ORDERED: fentaNYL 50 MCG/HR Transdermal Patch TRDERM SCH ×2 (08:52→15:39)
[2018-02-15] MEDS: Acetaminophen/HYDROcodone 325-5 MG Tab PO PRN ×2 (12:12→20:53)
[2018-02-15] MEDS: LORazepam 0.5 MG Tab PO PRN (20:52)
[2018-02-15] MEDS: SEROQUEL 400 MG PO SCH (20:52)
[2018-02-16] MEDS: Non-Formulary Medication 1 Each (Metronidazole [Metronidazole 0.75% Cream] 1 APPLIC) TOP SCH (08:11)
[2018-02-16] MEDS: Magnesium Hydroxide 400 MG/5 ML Susp 30 ML Cup PO SCH (08:11)
[2018-02-16] MEDS: Acetaminophen 650 MG Tab.ER PO SCH ×2 (08:12→20:24)
[2018-02-16] MEDS: Citalopram 20 MG Tab PO SCH (08:12)
[2018-02-16] MEDS: SENNOSIDES PO SCH ×2 (08:13→17:04)
[2018-02-16] MEDS: DOCUSATE PO SCH ×2 (08:13→17:04)
[2018-02-16] MEDS: Acetaminophen/HYDROcodone 325-5 MG Tab PO PRN (08:14)
[2018-02-16] MEDS: fentaNYL 25 MCG/HR Transdermal Patch TRDERM SCH (08:19)
[2018-02-16] MEDS: fentaNYL 50 MCG/HR Transdermal Patch TRDERM SCH (08:20)
[2018-02-16] MEDS: SEROQUEL 400 MG PO SCH (20:24)
[2018-02-17] MEDS: Citalopram 20 MG Tab PO SCH (09:45)
[2018-02-17] MEDS: Magnesium Hydroxide 400 MG/5 ML Susp 30 ML Cup PO SCH (09:45)
[2018-02-17] MEDS: Non-Formulary Medication 1 Each (Metronidazole [Metronidazole 0.75% Cream] 1 APPLIC) TOP SCH (09:45)
[2018-02-17] MEDS: Acetaminophen 650 MG Tab.ER PO SCH ×2 (09:49→21:15)
[2018-02-17] MEDS: DOCUSATE PO SCH ×2 (09:49→18:18)
[2018-02-17] MEDS: SENNOSIDES PO SCH ×2 (09:49→18:18)
--- NOTE | 2018-02-17 11:38 | PCM.PN ---
- General Info Date of Service: 02/16/18 Subjective Update: Patient is not very responsive at this time but sleeps most of the day. He does eat occasionally when not sleeping with aid of nursing. He continues to grimace with bed adjustments and turning. Functional Status: Reports: Pain Controlled, Tolerating Diet, Other (unable to obtain) - Review of Systems General: Reports: Weakness - Patient Data Vitals - Most Recent: Last Vital Signs Temp 36.7 C 02/11/18 02:55 Pulse 71 01/24/18 05:54 Resp 16 01/24/18 05:54 BP 139/63 01/24/18 05:54 Pulse Ox 93 L 01/24/18 05:54 Weight - Most Recent: 58.241 kg I&O - Last 24 Hours: Intake & Output 02/16/18 02/17/18 02/17/18 22:59 06:59 14:59 Output Total 600 325 Balance -600 -325 Med Orders - Current: Current Medications Acetaminophen (Tylenol Arthritis Pain) 650 mg PO BID [facility] Last Admin: 02/17/18 09:49 Dose: 650 mg Hydrocodone Bitart/Acetaminophen ([place] 325-5 Mg) 1 tab PO Q4H PRN PRN Reason: MODERATE PAIN Last Admin: 02/16/18 08:14 Dose: 1 tab Bisacodyl (Dulcolax) 10 mg RECTAL DAILY PRN PRN Reason: CONSTIPATION Last Admin: 02/06/18 06:10 Dose: 10 mg Citalopram Hydrobromide (Celexa) 20 mg PO DAILY [facility] Last Admin: 02/17/18 09:45 Dose: 20 mg Fentanyl (Duragesic) 25 mcg TRDERM Q72H [facility] Last Admin: 02/16/18 08:19 Dose: 25 mcg Fentanyl (Duragesic) 50 mcg TRDERM Q72H [facility] Last Admin: 02/16/18 08:20 Dose: 50 mcg Loperamide HCl (Imodium) 2 mg PO Q4H PRN PRN Reason: DIARRHEA Lorazepam (Ativan) 0.5 mg PO Q8H PRN PRN Reason: ANXIETY Last Admin: 02/15/18 20:52 Dose: 0.5 mg Magnesium Hydroxide (Milk Of Magnesia) 30 ml PO DAILY [facility] Last Admin: 02/17/18 09:45 Dose: 30 ml Miscellaneous Information (Remove Patch) 1 ea TRDERM Q72H [facility] Last Admin: 02/16/18 08:21 Dose: 1 ea Morphine Sulfate (Morphine) 2 mg SUBCUT Q4H PRN PRN Reason: PAIN Last Admin: 02/14/18 14:43 Dose: 2 mg Seroquel 400mg (Tablets) 1 each PO BEDTIME [facility] Last Admin: 02/16/18 20:24 Dose: 1 each Non-Formulary Medication (Metronidazole [Metronidazole 0.75% Cream]) 1 applic TOP DAILY [facility] Last Admin: 02/17/18 09:45 Dose: 1 applic Quetiapine Fumarate (Seroquel) 50 mg PO BEDTIME [facility] Last Admin: 02/16/18 20:24 Dose: 50 mg Quetiapine Fumarate (Seroquel) 200 mg PO DAILY@0800,1200 [facility] Last Admin: 02/17/18 09:46 Dose: 200 mg Quetiapine Fumarate (Seroquel) 50 mg PO DAILY@0800,1200 [facility] Last Admin: 02/17/18 09:45 Dose: 50 mg Scopolamine (Transderm-Scop) 1.5 mg TOP Q72H PRN PRN Reason: SECRETIONS Senna/Docusate Sodium (Senna Plus) 1 tab PO BID@0800,1700 [facility] Last Admin: 02/17/18 09:49 Dose: 1 tab Discontinued Medications Acetaminophen (Tylenol) 650 mg PO BID [facility] Last Admin: 10/19/17 07:20 Dose: 650 mg Ciprofloxacin (Ciprofloxacin Hcl) 250 mg PO BID [facility] Stop: 12/04/17 20:01 Last Admin: 12/04/17 20:30 Dose: Not Given Fentanyl (Duragesic) 25 mcg TRDERM Q72H [facility] Last Admin: 12/01/17 08:00 Dose: 25 mcg Fentanyl (Duragesic) 12 mcg TRDERM Q72H [facility] Last Admin: 12/01/17 08:00 Dose: 12 mcg Fentanyl (Duragesic) 12 mcg TRDERM Q72H [facility] Last Admin: 12/03/17 20:20 Dose: Not Given Fentanyl (Duragesic) 25 mcg TRDERM ONETIME ONE Stop: 12/02/17 18:31 Last Admin: 12/02/17 18:37 Dose: 25 mcg Fentanyl (Duragesic) 50 mcg TRDERM Q72H [facility] Last Admin: 12/04/17 11:45 Dose: Not Given Fentanyl (Duragesic) 50 mcg TRDERM Q72H [facility] Last Admin: 12/16/17 09:19 Dose: 50 mcg Fentanyl (Duragesic) 50 mcg TRDERM Q72H [facility] Last Admin: 01/18/18 12:25 Dose: 50 mcg Fentanyl (Duragesic) 50 mcg TRDERM Q72H [facility] Last Admin: 02/13/18 09:00 Dose: 50 mcg Fentanyl (Duragesic) 75 mcg TRDERM Q72H [facility] Last Admin: 02/15/18 11:03 Dose: Not Given Fentanyl (Duragesic) 50 mcg TRDERM Q72H [facility] Last Admin: 02/16/18 09:19 Dose: Not Given Lactated Ringer's (Ringers, Lactated) 1,000 mls @ 75 mls/hr IV ASDIRECTED [facility] Lorazepam (Ativan) Confirm Administered Dose 2 mg .ROUTE .STK-MED ONE Stop: 10/10/17 19:54 Last Admin: 10/10/17 20:02 Dose: 2 mg Lorazepam (Ativan) 1 mg IM Q4H PRN PRN Reason: Agitation Last Admin: 01/07/18 19:07 Dose: 1 mg Magnesium Hydroxide (Milk Of Magnesia) Confirm Administered Dose 30 ml .ROUTE .STK-MED ONE Stop: 12/09/17 15:52 Last Admin: 12/09/17 15:59 Dose: 30 ml Magnesium Hydroxide (Milk Of Magnesia) Confirm Administered Dose 30 ml .ROUTE .STK-MED ONE Stop: 12/17/17 10:02 Last Admin: 12/17/17 10:11 Dose: 30 ml Magnesium Hydroxide (Milk Of Magnesia) 30 ml PO BEDTIME [facility] Last Admin: 12/20/17 00:06 Dose: Not Given Magnesium Hydroxide (Milk Of Magnesia) 30 ml PO DAILY@0800 [facility] Last Admin: 12/20/17 10:13 Dose: 30 ml Miscellaneous Information (Remove Patch) 1 ea TRDERM Q72H [facility] Last Admin: 12/01/17 08:00 Dose: 1 ea Miscellaneous Information (Remove Patch) 1 ea TRDERM Q72H [facility] Last Admin: 01/21/18 08:45 Dose: Not Given Senna (Senna) 8.6 mg PO BID@0800,1700 [facility] Last Admin: 12/18/17 08:51 Dose: 8.6 mg Senna/Docusate Sodium (Senna Plus) 1 tab PO BID@0800,1700 [facility] Last Admin: 12/08/17 07:19 Dose: 1 tab Senna/Docusate Sodium (Senna Plus) 1 tab PO BID [facility] Sodium Biphosphate/Sodium Phosphate (Fleet Enema) 133 ml RECTAL ONETIME ONE Stop: 12/09/17 15:59 Last Admin: 12/09/17 16:25 Dose: 1 bottle - Exam General: Lethargic, Obtunded - Problem List & Annotations (1) Comfort measures only status SNOMED Code(s): 82124746659367 Code(s): Z51.5 - ENCOUNTER FOR PALLIATIVE CARE Status: Chronic Priority: High Current Visit: Yes (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 Code(s): F03.91 - UNSPECIFIED DEMENTIA WITH BEHAVIORAL DISTURBANCE Status: Chronic Priority: High Current Visit: Yes Qualifiers: Dementia behavioral disturbance: with behavioral disturbance Qualified Code (s): F02.81 - Dementia in other diseases classified elsewhere with behavioral disturbance (3) Diabetes mellitus SNOMED Code(s): 00823952 Code(s): E11.9 - TYPE 2 DIABETES MELLITUS WITHOUT COMPLICATIONS Status: Chronic Priority: Medium Current Visit: Yes Qualifiers: Diabetes mellitus type: type 2 Diabetes mellitus terminal block assembler insulin use: without terminal block assembler use Diabetes mellitus complication status: with hyperglycemia Qualified Code(s): E11.65 - Type 2 diabetes mellitus with hyperglycemia (4) Incontinence overflow, urine SNOMED Code(s): 270503315 Code(s): N39.490 - OVERFLOW INCONTINENCE Status: Chronic Priority: Medium Current Visit: Yes (5) Neurogenic bladder SNOMED Code(s): 313179639 Code(s): N31.9 - NEUROMUSCULAR DYSFUNCTION OF BLADDER, UNSPECIFIED Status: Chronic Priority: Medium Current Visit: Yes (6) Palliative care patient SNOMED Code(s): 152541418 Code(s): Z51.5 - ENCOUNTER FOR PALLIATIVE CARE Status: Chronic Priority: High Current Visit: Yes (7) Paranoid schizophrenia, chronic condition SNOMED Code(s): 99258324 Code(s): F20.0 - PARANOID SCHIZOPHRENIA Status: Chronic Priority: High Current Visit: Yes - Problem List Review Problem List Initiated/Reviewed/Updated: Yes - Plan Plan:: Patient to continue current diet and management. No changes to supportive care. We will also continue to monitor for any bed sores. Patient resting well and is very stable. 11/09/17 No changes to status at this time. Patient is resting comfortably. He does eat with help from nursing staff. 12/17/17 Patient stable and continues on comfort cares. No changes to medications or status. Continue current diet and monitoring. 01/04/18 No changes to care of patient. We will continue comfort cares with current diet. 01/11/18 Patient continues with comfort cares and is eating routinely with certain nurses. 01/19/18 No changes at this time. We will continue current cares and comfort cares. 01/25/18 We will continue comfort cares. Continue feeding as routine and oral cares. Continue to monitor bed sores and continue turning. 02/04/18 Patient is not as responsive. We will continue feeding as tolerated if alert and continue current cares and pain management. Patient does appear much weaker and thinner. 02/16/18 Patient is stable and we have increase pain management due to increased signs of agitation and grimacing with movement during bed turning and hygiene.
[2018-02-17] MEDS: SEROQUEL 400 MG PO SCH (21:15)
[2018-02-18] MEDS: Magnesium Hydroxide 400 MG/5 ML Susp 30 ML Cup PO SCH (08:44)
[2018-02-18] MEDS: Acetaminophen 650 MG Tab.ER PO SCH ×2 (08:44→20:13)
[2018-02-18] MEDS: DOCUSATE PO SCH ×2 (08:44→19:35)
[2018-02-18] MEDS: Citalopram 20 MG Tab PO SCH (08:44)
[2018-02-18] MEDS: SENNOSIDES PO SCH ×2 (08:44→19:35)
[2018-02-18] MEDS: Non-Formulary Medication 1 Each (Metronidazole [Metronidazole 0.75% Cream] 1 APPLIC) TOP SCH (08:44)
[2018-02-18] MEDS: Acetaminophen/HYDROcodone 325-5 MG Tab PO PRN (19:30)
[2018-02-18] MEDS: LORazepam 0.5 MG Tab PO PRN (19:30)
[2018-02-18] MEDS: SEROQUEL 400 MG PO SCH (20:13)
[2018-02-19] MEDS: Citalopram 20 MG Tab PO SCH (07:32)
[2018-02-19] MEDS: fentaNYL 25 MCG/HR Transdermal Patch TRDERM SCH (07:33)
[2018-02-19] MEDS: fentaNYL 50 MCG/HR Transdermal Patch TRDERM SCH (07:34)
[2018-02-19] MEDS: Non-Formulary Medication 1 Each (Metronidazole [Metronidazole 0.75% Cream] 1 APPLIC) TOP SCH (07:35)
[2018-02-19] MEDS: SENNOSIDES PO SCH ×2 (07:36→17:31)
[2018-02-19] MEDS: Magnesium Hydroxide 400 MG/5 ML Susp 30 ML Cup PO SCH (07:36)
[2018-02-19] MEDS: DOCUSATE PO SCH ×2 (07:36→17:31)
[2018-02-19] MEDS: Acetaminophen 650 MG Tab.ER PO SCH ×2 (07:37→20:16)
[2018-02-19] MEDS: SEROQUEL 400 MG PO SCH (20:16)
[2018-02-19] MEDS: Acetaminophen/HYDROcodone 325-5 MG Tab PO PRN (20:16)
[2018-02-19] MEDS: LORazepam 0.5 MG Tab PO PRN (20:16)
[2018-02-20] MEDS: Citalopram 20 MG Tab PO SCH (08:59)
[2018-02-20] MEDS: SENNOSIDES PO SCH ×2 (08:59→16:59)
[2018-02-20] MEDS: DOCUSATE PO SCH ×2 (08:59→16:59)
[2018-02-20] MEDS: Magnesium Hydroxide 400 MG/5 ML Susp 30 ML Cup PO SCH (08:59)
[2018-02-20] MEDS: Non-Formulary Medication 1 Each (Metronidazole [Metronidazole 0.75% Cream] 1 APPLIC) TOP SCH (08:59)
[2018-02-20] MEDS: Acetaminophen 650 MG Tab.ER PO SCH ×2 (09:00→20:45)
[2018-02-20] MEDS: SEROQUEL 400 MG PO SCH (20:45)
[2018-02-20] MEDS: Acetaminophen/HYDROcodone 325-5 MG Tab PO PRN (20:45)
[2018-02-20] MEDS: LORazepam 0.5 MG Tab PO PRN (20:45)
[2018-02-21] MEDS: SENNOSIDES PO SCH ×2 (07:47→17:21)
[2018-02-21] MEDS: DOCUSATE PO SCH ×2 (07:47→17:21)
[2018-02-21] MEDS: Acetaminophen 650 MG Tab.ER PO SCH ×2 (07:48→20:23)
[2018-02-21] MEDS: Non-Formulary Medication 1 Each (Metronidazole [Metronidazole 0.75% Cream] 1 APPLIC) TOP SCH (07:48)
[2018-02-21] MEDS: Citalopram 20 MG Tab PO SCH (07:49)
[2018-02-21] MEDS: Magnesium Hydroxide 400 MG/5 ML Susp 30 ML Cup PO SCH (07:49)
[2018-02-21] MEDS: LORazepam 0.5 MG Tab PO PRN (20:23)
[2018-02-21] MEDS: Acetaminophen/HYDROcodone 325-5 MG Tab PO PRN (20:24)
[2018-02-21] MEDS: SEROQUEL 400 MG PO SCH (20:24)
[2018-02-22] MEDS: Citalopram 20 MG Tab PO SCH (07:30)
[2018-02-22] MEDS: fentaNYL 25 MCG/HR Transdermal Patch TRDERM SCH (07:30)
[2018-02-22] MEDS: fentaNYL 50 MCG/HR Transdermal Patch TRDERM SCH (07:30)
[2018-02-22] MEDS: Magnesium Hydroxide 400 MG/5 ML Susp 30 ML Cup PO SCH (07:30)
[2018-02-22] MEDS: Non-Formulary Medication 1 Each (Metronidazole [Metronidazole 0.75% Cream] 1 APPLIC) TOP SCH (07:30)
[2018-02-22] MEDS: DOCUSATE PO SCH ×2 (07:30→16:55)
[2018-02-22] MEDS: Acetaminophen 650 MG Tab.ER PO SCH ×2 (07:30→21:22)
[2018-02-22] MEDS: SENNOSIDES PO SCH ×2 (07:30→16:55)
[2018-02-22] MEDS: Acetaminophen/HYDROcodone 325-5 MG Tab PO PRN ×2 (12:00→21:23)
[2018-02-22] MEDS: SEROQUEL 400 MG PO SCH (21:22)
[2018-02-22] MEDS: LORazepam 0.5 MG Tab PO PRN (21:23)
[2018-02-23] MEDS: SENNOSIDES PO SCH ×2 (07:29→17:00)
[2018-02-23] MEDS: Magnesium Hydroxide 400 MG/5 ML Susp 30 ML Cup PO SCH (07:29)
[2018-02-23] MEDS: Citalopram 20 MG Tab PO SCH (07:29)
[2018-02-23] MEDS: Non-Formulary Medication 1 Each (Metronidazole [Metronidazole 0.75% Cream] 1 APPLIC) TOP SCH (07:29)
[2018-02-23] MEDS: DOCUSATE PO SCH ×2 (07:29→17:00)
[2018-02-23] MEDS: Acetaminophen/HYDROcodone 325-5 MG Tab PO PRN ×3 (07:29→20:23)
[2018-02-23] MEDS: Acetaminophen 650 MG Tab.ER PO SCH ×2 (07:29→20:24)
[2018-02-23] MEDS: SEROQUEL 400 MG PO SCH (20:23)
[2018-02-23] MEDS: LORazepam 0.5 MG Tab PO PRN (20:24)
[2018-02-24] MEDS: Citalopram 20 MG Tab PO SCH (07:30)
[2018-02-24] MEDS: Non-Formulary Medication 1 Each (Metronidazole [Metronidazole 0.75% Cream] 1 APPLIC) TOP SCH (07:31)
[2018-02-24] MEDS: Magnesium Hydroxide 400 MG/5 ML Susp 30 ML Cup PO SCH (07:31)
[2018-02-24] MEDS: DOCUSATE PO SCH ×2 (07:32→17:07)
[2018-02-24] MEDS: SENNOSIDES PO SCH ×2 (07:32→17:07)
[2018-02-24] MEDS: Acetaminophen 650 MG Tab.ER PO SCH ×2 (07:34→20:32)
[2018-02-24] MEDS: Albuterol 0.083% 2.5 MG/3 ML Neb Soln NEB PRN (10:25)
[2018-02-24] MEDS: LORazepam 0.5 MG Tab PO PRN (20:29)
[2018-02-24] MEDS: SEROQUEL 400 MG PO SCH (20:29)
[2018-02-24] MEDS: Acetaminophen/HYDROcodone 325-5 MG Tab PO PRN (20:30)
[2018-02-25] MEDS: Citalopram 20 MG Tab PO SCH (07:52)
[2018-02-25] MEDS: DOCUSATE PO SCH ×2 (07:52→18:01)
[2018-02-25] MEDS: SENNOSIDES PO SCH ×2 (07:52→18:01)
[2018-02-25] MEDS: Acetaminophen 650 MG Tab.ER PO SCH ×2 (07:53→20:30)
[2018-02-25] MEDS: Acetaminophen/HYDROcodone 325-5 MG Tab PO PRN ×3 (07:54→21:04)
[2018-02-25] MEDS: Magnesium Hydroxide 400 MG/5 ML Susp 30 ML Cup PO SCH (08:37)
[2018-02-25] MEDS: fentaNYL 25 MCG/HR Transdermal Patch TRDERM SCH (08:40)
[2018-02-25] MEDS: fentaNYL 50 MCG/HR Transdermal Patch TRDERM SCH (08:40)
[2018-02-25] MEDS: Non-Formulary Medication 1 Each (Metronidazole [Metronidazole 0.75% Cream] 1 APPLIC) TOP SCH (10:45)
[2018-02-25] MEDS: SEROQUEL 400 MG PO SCH (20:30)
[2018-02-25] MEDS: LORazepam 0.5 MG Tab PO PRN (21:04)
[2018-02-26] MEDS: Citalopram 20 MG Tab PO SCH (10:30)
[2018-02-26] MEDS: Acetaminophen 650 MG Tab.ER PO SCH ×2 (10:30→20:51)
[2018-02-26] MEDS: SENNOSIDES PO SCH ×2 (10:30→17:39)
[2018-02-26] MEDS: Magnesium Hydroxide 400 MG/5 ML Susp 30 ML Cup PO SCH (10:30)
[2018-02-26] MEDS: DOCUSATE PO SCH ×2 (10:30→17:39)
[2018-02-26] MEDS: Non-Formulary Medication 1 Each (Metronidazole [Metronidazole 0.75% Cream] 1 APPLIC) TOP SCH (10:40)
[2018-02-26] MEDS: Acetaminophen/HYDROcodone 325-5 MG Tab PO PRN ×2 (13:39→20:52)
[2018-02-26] MEDS: LORazepam 0.5 MG Tab PO PRN (20:50)
[2018-02-26] MEDS: SEROQUEL 400 MG PO SCH (20:50)
[2018-02-27] MEDS: Citalopram 20 MG Tab PO SCH (10:40)
[2018-02-27] MEDS: Magnesium Hydroxide 400 MG/5 ML Susp 30 ML Cup PO SCH (10:41)
[2018-02-27] MEDS: Acetaminophen 650 MG Tab.ER PO SCH ×3 (10:41→21:54)
[2018-02-27] MEDS: DOCUSATE PO SCH ×2 (10:41→20:16)
[2018-02-27] MEDS: SENNOSIDES PO SCH ×2 (10:41→20:16)
[2018-02-27] MEDS: Non-Formulary Medication 1 Each (Metronidazole [Metronidazole 0.75% Cream] 1 APPLIC) TOP SCH (10:42)
[2018-02-27] MEDS: SEROQUEL 400 MG PO SCH ×2 (21:18→21:54)
[2018-02-27] MEDS: Acetaminophen/HYDROcodone 325-5 MG Tab PO PRN (21:19)
[2018-02-27] MEDS: LORazepam 0.5 MG Tab PO PRN (21:27)
[2018-02-28] MEDS: Citalopram 20 MG Tab PO SCH (08:30)
[2018-02-28] MEDS: DOCUSATE PO SCH ×2 (08:31→21:04)
[2018-02-28] MEDS: SENNOSIDES PO SCH ×2 (08:31→21:04)
[2018-02-28] MEDS: LORazepam 0.5 MG Tab PO PRN (08:32)
[2018-02-28] MEDS: Acetaminophen/HYDROcodone 325-5 MG Tab PO PRN (08:33)
[2018-02-28] MEDS: Acetaminophen 650 MG Tab.ER PO SCH ×2 (08:37→21:04)
[2018-02-28] MEDS: fentaNYL 50 MCG/HR Transdermal Patch TRDERM SCH (08:41)
[2018-02-28] MEDS: fentaNYL 25 MCG/HR Transdermal Patch TRDERM SCH (08:41)
[2018-02-28] MEDS: Magnesium Hydroxide 400 MG/5 ML Susp 30 ML Cup PO SCH (13:38)
[2018-02-28] MEDS: Non-Formulary Medication 1 Each (Metronidazole [Metronidazole 0.75% Cream] 1 APPLIC) TOP SCH (13:43)
[2018-02-28] MEDS: SEROQUEL 400 MG PO SCH (21:04)
[2018-03-01] MEDS: SENNOSIDES PO SCH ×2 (07:44→15:30)
[2018-03-01] MEDS: Acetaminophen 650 MG Tab.ER PO SCH ×2 (07:44→19:00)
[2018-03-01] MEDS: DOCUSATE PO SCH ×2 (07:44→15:30)
[2018-03-01] MEDS: Citalopram 20 MG Tab PO SCH (07:45)
[2018-03-01] MEDS: Non-Formulary Medication 1 Each (Metronidazole [Metronidazole 0.75% Cream] 1 APPLIC) TOP SCH (07:45)
[2018-03-01] MEDS: Magnesium Hydroxide 400 MG/5 ML Susp 30 ML Cup PO SCH (07:52)
--- NOTE | 2018-03-01 15:33 | PCM.PN ---
- General Info Date of Service: 03/01/18 Subjective Update: Patient appears alert and eating. He is not eating as much but does track and respond to some gestures and cues. He is not speaking much at all. He rests in bed and does not get up anymore. Functional Status: Reports: Tolerating Diet - Review of Systems General: Reports: Weakness HEENT: Reports: No Symptoms Pulmonary: Reports: No Symptoms Cardiovascular: Reports: No Symptoms Gastrointestinal: Reports: No Symptoms Genitourinary: Reports: No Symptoms Musculoskeletal: Reports: No Symptoms Skin: Reports: No Symptoms Neurological: Reports: Weakness Psychiatric: Reports: No Symptoms - Patient Data Vitals - Most Recent: Last Vital Signs Temp 36.9 C 02/24/18 10:32 Pulse 105 H 02/23/18 18:22 Resp 16 01/24/18 05:54 BP 139/63 01/24/18 05:54 Pulse Ox 93 L 01/24/18 05:54 Weight - Most Recent: 58.241 kg I&O - Last 24 Hours: Intake & Output 03/01/18 03/01/18 03/01/18 06:59 14:59 22:59 Intake Total 1280 Balance 1280 Med Orders - Current: Current Medications Acetaminophen (Tylenol Arthritis Pain) 650 mg PO BID [facility] Last Admin: 03/01/18 07:44 Dose: 650 mg Hydrocodone Bitart/Acetaminophen (Orange 325-5 Mg) 1 tab PO Q4H PRN PRN Reason: MODERATE PAIN Last Admin: 02/28/18 08:33 Dose: 1 tab Albuterol (Proventil Neb Soln) 2.5 mg NEB Q4H PRN PRN Reason: Shortness of Breath Last Admin: 02/24/18 10:25 Dose: 2.5 mg Bisacodyl (Dulcolax) 10 mg RECTAL DAILY PRN PRN Reason: CONSTIPATION Last Admin: 02/06/18 06:10 Dose: 10 mg Ciprofloxacin (Ciprofloxacin Hcl) 500 mg PO BID [facility] Citalopram Hydrobromide (Celexa) 20 mg PO DAILY [facility] Last Admin: 03/01/18 07:45 Dose: 20 mg Fentanyl (Duragesic) 25 mcg TRDERM Q72H [facility] Last Admin: 02/28/18 08:41 Dose: 25 mcg Fentanyl (Duragesic) 50 mcg TRDERM Q72H [facility] Last Admin: 02/28/18 08:41 Dose: 50 mcg Loperamide HCl (Imodium) 2 mg PO Q4H PRN PRN Reason: DIARRHEA Lorazepam (Ativan) 0.5 mg PO Q8H PRN PRN Reason: ANXIETY Last Admin: 02/28/18 08:32 Dose: 0.5 mg Magnesium Hydroxide (Milk Of Magnesia) 30 ml PO DAILY [facility] Last Admin: 03/01/18 07:52 Dose: 30 ml Miscellaneous Information (Remove Patch) 1 ea TRDERM Q72H [facility] Last Admin: 02/28/18 08:40 Dose: 1 ea Morphine Sulfate (Morphine) 2 mg SUBCUT Q4H PRN PRN Reason: PAIN Last Admin: 02/14/18 14:43 Dose: 2 mg Seroquel 400mg (Tablets) 1 each PO BEDTIME [facility] Last Admin: 02/28/18 21:04 Dose: 1 each Non-Formulary Medication (Metronidazole [Metronidazole 0.75% Cream]) 1 applic TOP DAILY [facility] Last Admin: 03/01/18 07:45 Dose: 1 applic Quetiapine Fumarate (Seroquel) 50 mg PO BEDTIME [facility] Last Admin: 02/28/18 21:04 Dose: 50 mg Quetiapine Fumarate (Seroquel) 200 mg PO DAILY@0800,1200 [facility] Last Admin: 03/01/18 12:54 Dose: 200 mg Quetiapine Fumarate (Seroquel) 50 mg PO DAILY@0800,1200 [facility] Last Admin: 03/01/18 12:56 Dose: 50 mg Scopolamine (Transderm-Scop) 1.5 mg TOP Q72H PRN PRN Reason: SECRETIONS Senna/Docusate Sodium (Senna Plus) 1 tab PO BID@0800,1700 [facility] Last Admin: 03/01/18 07:44 Dose: 1 tab Discontinued Medications Acetaminophen (Tylenol) 650 mg PO BID [facility] Last Admin: 10/19/17 07:20 Dose: 650 mg Ciprofloxacin (Ciprofloxacin Hcl) 250 mg PO BID [facility] Stop: 12/04/17 20:01 Last Admin: 12/04/17 20:30 Dose: Not Given Fentanyl (Duragesic) 25 mcg TRDERM Q72H [facility] Last Admin: 12/01/17 08:00 Dose: 25 mcg Fentanyl (Duragesic) 12 mcg TRDERM Q72H [facility] Last Admin: 12/01/17 08:00 Dose: 12 mcg Fentanyl (Duragesic) 12 mcg TRDERM Q72H [facility] Last Admin: 12/03/17 20:20 Dose: Not Given Fentanyl (Duragesic) 25 mcg TRDERM ONETIME ONE Stop: 12/02/17 18:31 Last Admin: 12/02/17 18:37 Dose: 25 mcg Fentanyl (Duragesic) 50 mcg TRDERM Q72H [facility] Last Admin: 12/04/17 11:45 Dose: Not Given Fentanyl (Duragesic) 50 mcg TRDERM Q72H [facility] Last Admin: 12/16/17 09:19 Dose: 50 mcg Fentanyl (Duragesic) 50 mcg TRDERM Q72H [facility] Last Admin: 01/18/18 12:25 Dose: 50 mcg Fentanyl (Duragesic) 50 mcg TRDERM Q72H [facility] Last Admin: 02/13/18 09:00 Dose: 50 mcg Fentanyl (Duragesic) 75 mcg TRDERM Q72H [facility] Last Admin: 02/15/18 11:03 Dose: Not Given Fentanyl (Duragesic) 50 mcg TRDERM Q72H [facility] Last Admin: 02/16/18 09:19 Dose: Not Given Lactated Ringer's (Ringers, Lactated) 1,000 mls @ 75 mls/hr IV ASDIRECTED [facility] Lorazepam (Ativan) Confirm Administered Dose 2 mg .ROUTE .STK-MED ONE Stop: 10/10/17 19:54 Last Admin: 10/10/17 20:02 Dose: 2 mg Lorazepam (Ativan) 1 mg IM Q4H PRN PRN Reason: Agitation Last Admin: 01/07/18 19:07 Dose: 1 mg Magnesium Hydroxide (Milk Of Magnesia) Confirm Administered Dose 30 ml .ROUTE .STK-MED ONE Stop: 12/09/17 15:52 Last Admin: 12/09/17 15:59 Dose: 30 ml Magnesium Hydroxide (Milk Of Magnesia) Confirm Administered Dose 30 ml .ROUTE .STK-MED ONE Stop: 12/17/17 10:02 Last Admin: 12/17/17 10:11 Dose: 30 ml Magnesium Hydroxide (Milk Of Magnesia) 30 ml PO BEDTIME [facility] Last Admin: 12/20/17 00:06 Dose: Not Given Magnesium Hydroxide (Milk Of Magnesia) 30 ml PO DAILY@0800 [facility] Last Admin: 12/20/17 10:13 Dose: 30 ml Miscellaneous Information (Remove Patch) 1 ea TRDERM Q72H [facility] Last Admin: 12/01/17 08:00 Dose: 1 ea Miscellaneous Information (Remove Patch) 1 ea TRDERM Q72H [facility] Last Admin: 01/21/18 08:45 Dose: Not Given Senna (Senna) 8.6 mg PO BID@0800,1700 [facility] Last Admin: 12/18/17 08:51 Dose: 8.6 mg Senna/Docusate Sodium (Senna Plus) 1 tab PO BID@0800,1700 [facility] Last Admin: 12/08/17 07:19 Dose: 1 tab Senna/Docusate Sodium (Senna Plus) 1 tab PO BID [facility] Sodium Biphosphate/Sodium Phosphate (Fleet Enema) 133 ml RECTAL ONETIME ONE Stop: 12/09/17 15:59 Last Admin: 12/09/17 16:25 Dose: 1 bottle - Exam General: Alert, Cooperative, No Acute Distress HEENT: Pupils Equal, Pupils Reactive, EOMI Neck: Supple Lungs: Clear to Auscultation, Normal Respiratory Effort Cardiovascular: Regular Rate, Regular Rhythm GI/Abdominal Exam: Normal Bowel Sounds Extremities: Other (thin extremities) Peripheral Pulses: 2+: Dorsalis Pedis (L), Dorsalis Pedis (R) Skin: Warm, Dry, Intact - Problem List & Annotations (1) Comfort measures only status SNOMED Code(s): 41058962587789 Code(s): Z51.5 - ENCOUNTER FOR PALLIATIVE CARE Status: Chronic Priority: High Current Visit: Yes (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 Code(s): F03.91 - UNSPECIFIED DEMENTIA WITH BEHAVIORAL DISTURBANCE Status: Chronic Priority: High Current Visit: Yes Qualifiers: Dementia behavioral disturbance: with behavioral disturbance Qualified Code (s): F02.81 - Dementia in other diseases classified elsewhere with behavioral disturbance (3) Diabetes mellitus SNOMED Code(s): 28045918 Code(s): E11.9 - TYPE 2 DIABETES MELLITUS WITHOUT COMPLICATIONS Status: Chronic Priority: Medium Current Visit: Yes Qualifiers: Diabetes mellitus type: type 2 Diabetes mellitus superintendent container terminal insulin use: without superintendent container terminal use Diabetes mellitus complication status: with hyperglycemia Qualified Code(s): E11.65 - Type 2 diabetes mellitus with hyperglycemia (4) Incontinence overflow, urine SNOMED Code(s): 259145511 Code(s): N39.490 - OVERFLOW INCONTINENCE Status: Chronic Priority: Medium Current Visit: Yes (5) Neurogenic bladder SNOMED Code(s): 270315428 Code(s): N31.9 - NEUROMUSCULAR DYSFUNCTION OF BLADDER, UNSPECIFIED Status: Chronic Priority: Medium Current Visit: Yes (6) Palliative care patient SNOMED Code(s): 798055198 Code(s): Z51.5 - ENCOUNTER FOR PALLIATIVE CARE Status: Chronic Priority: High Current Visit: Yes (7) Paranoid schizophrenia, chronic condition SNOMED Code(s): 21484535 Code(s): F20.0 - PARANOID SCHIZOPHRENIA Status: Chronic Priority: High Current Visit: Yes - Problem List Review Problem List Initiated/Reviewed/Updated: Yes - My Orders Last 24 Hours: My Active Orders 03/01/18 20:00 Ciprofloxacin [Ciprofloxacin HCl] 500 mg PO BID - Plan Plan:: Patient to continue current diet and management. No changes to supportive care. We will also continue to monitor for any bed sores. Patient resting well and is very stable. 11/09/17 No changes to status at this time. Patient is resting comfortably. He does eat with help from nursing staff. 12/17/17 Patient stable and continues on comfort cares. No changes to medications or status. Continue current diet and monitoring. 01/04/18 No changes to care of patient. We will continue comfort cares with current diet. 01/11/18 Patient continues with comfort cares and is eating routinely with certain nurses. 01/19/18 No changes at this time. We will continue current cares and comfort cares. 01/25/18 We will continue comfort cares. Continue feeding as routine and oral cares. Continue to monitor bed sores and continue turning. 02/04/18 Patient is not as responsive. We will continue feeding as tolerated if alert and continue current cares and pain management. Patient does appear much weaker and thinner. 02/16/18 Patient is stable and we have increase pain management due to increased signs of agitation and grimacing with movement during bed turning and hygiene. 03/01/18 Patient is stable with no current medication changes. We have added temporary Cipro for 5 days to treat 2 different bacteria. All 4 cultured are sensitive to Cipro. (his urine was cloudy and patient exhibited symptoms of confusion prior to obtaining UA and culture)
[2018-03-01] MEDS: SEROQUEL 400 MG PO SCH ×2 (18:00→19:00)
[2018-03-01] MEDS: Ciprofloxacin 500 MG Tab PO SCH ×2 (18:00→19:00)
[2018-03-01] MEDS: LORazepam 0.5 MG Tab PO PRN (19:57)
[2018-03-01] MEDS: Acetaminophen/HYDROcodone 325-5 MG Tab PO PRN (19:57)
[2018-03-02] MEDS: Ciprofloxacin 500 MG Tab PO SCH ×2 (09:42→21:00)
[2018-03-02] MEDS: Non-Formulary Medication 1 Each (Metronidazole [Metronidazole 0.75% Cream] 1 APPLIC) TOP SCH (09:43)
[2018-03-02] MEDS: Acetaminophen/HYDROcodone 325-5 MG Tab PO PRN ×3 (09:43→21:00)
[2018-03-02] MEDS: Acetaminophen 650 MG Tab.ER PO SCH ×2 (09:44→21:00)
[2018-03-02] MEDS: SENNOSIDES PO SCH ×2 (09:44→17:20)
[2018-03-02] MEDS: DOCUSATE PO SCH ×2 (09:44→17:20)
[2018-03-02] MEDS: Citalopram 20 MG Tab PO SCH (09:44)
[2018-03-02] MEDS: Magnesium Hydroxide 400 MG/5 ML Susp 30 ML Cup PO SCH (09:45)
[2018-03-02] MEDS: SEROQUEL 400 MG PO SCH (21:00)
[2018-03-02] MEDS: LORazepam 0.5 MG Tab PO PRN (21:00)
[2018-03-03] MEDS: fentaNYL 25 MCG/HR Transdermal Patch TRDERM SCH (08:06)
[2018-03-03] MEDS: fentaNYL 50 MCG/HR Transdermal Patch TRDERM SCH (08:07)
[2018-03-03] MEDS: Magnesium Hydroxide 400 MG/5 ML Susp 30 ML Cup PO SCH (08:20)
[2018-03-03] MEDS: Citalopram 20 MG Tab PO SCH (08:20)
[2018-03-03] MEDS: DOCUSATE PO SCH ×2 (08:20→19:30)
[2018-03-03] MEDS: Acetaminophen 650 MG Tab.ER PO SCH ×2 (08:20→19:30)
[2018-03-03] MEDS: Ciprofloxacin 500 MG Tab PO SCH ×2 (08:20→20:25)
[2018-03-03] MEDS: Acetaminophen/HYDROcodone 325-5 MG Tab PO PRN (08:20)
[2018-03-03] MEDS: SENNOSIDES PO SCH ×2 (08:20→19:30)
[2018-03-03] MEDS: Non-Formulary Medication 1 Each (Metronidazole [Metronidazole 0.75% Cream] 1 APPLIC) TOP SCH (09:00)
[2018-03-03] MEDS: LORazepam 0.5 MG Tab PO PRN (19:29)
[2018-03-03] MEDS: SEROQUEL 400 MG PO SCH (19:30)
[2018-03-04] MEDS: Magnesium Hydroxide 400 MG/5 ML Susp 30 ML Cup PO SCH (07:21)
[2018-03-04] MEDS: Non-Formulary Medication 1 Each (Metronidazole [Metronidazole 0.75% Cream] 1 APPLIC) TOP SCH (07:21)
[2018-03-04] MEDS: Citalopram 20 MG Tab PO SCH (07:21)
[2018-03-04] MEDS: DOCUSATE PO SCH ×2 (07:21→17:00)
[2018-03-04] MEDS: Ciprofloxacin 500 MG Tab PO SCH ×2 (07:21→20:58)
[2018-03-04] MEDS: SENNOSIDES PO SCH ×2 (07:21→17:00)
[2018-03-04] MEDS: Acetaminophen 650 MG Tab.ER PO SCH ×2 (07:22→20:59)
[2018-03-04] MEDS: Acetaminophen/HYDROcodone 325-5 MG Tab PO PRN ×2 (07:22→20:58)
[2018-03-04] MEDS: SEROQUEL 400 MG PO SCH (20:57)
[2018-03-04] MEDS: LORazepam 0.5 MG Tab PO PRN (20:58)
[2018-03-05] MEDS: Ciprofloxacin 500 MG Tab PO SCH ×2 (08:25→20:18)
[2018-03-05] MEDS: DOCUSATE PO SCH ×2 (08:25→17:32)
[2018-03-05] MEDS: Citalopram 20 MG Tab PO SCH (08:25)
[2018-03-05] MEDS: Non-Formulary Medication 1 Each (Metronidazole [Metronidazole 0.75% Cream] 1 APPLIC) TOP SCH (08:25)
[2018-03-05] MEDS: Acetaminophen 650 MG Tab.ER PO SCH ×2 (08:25→20:19)
[2018-03-05] MEDS: SENNOSIDES PO SCH ×2 (08:25→17:32)
[2018-03-05] MEDS: Magnesium Hydroxide 400 MG/5 ML Susp 30 ML Cup PO SCH (08:25)
[2018-03-05] MEDS: Acetaminophen/HYDROcodone 325-5 MG Tab PO PRN ×2 (08:28→20:18)
[2018-03-05] MEDS: LORazepam 0.5 MG Tab PO PRN (20:18)
[2018-03-05] MEDS: SEROQUEL 400 MG PO SCH (20:20)
[2018-03-06] MEDS: Ciprofloxacin 500 MG Tab PO SCH ×2 (07:43→20:21)
[2018-03-06] MEDS: Citalopram 20 MG Tab PO SCH (07:43)
[2018-03-06] MEDS: Magnesium Hydroxide 400 MG/5 ML Susp 30 ML Cup PO SCH (07:44)
[2018-03-06] MEDS: SENNOSIDES PO SCH ×2 (07:44→17:37)
[2018-03-06] MEDS: DOCUSATE PO SCH ×2 (07:44→17:37)
[2018-03-06] MEDS: Acetaminophen 650 MG Tab.ER PO SCH ×2 (07:44→20:22)
[2018-03-06] MEDS: Non-Formulary Medication 1 Each (Metronidazole [Metronidazole 0.75% Cream] 1 APPLIC) TOP SCH (07:45)
[2018-03-06] MEDS: fentaNYL 25 MCG/HR Transdermal Patch TRDERM SCH (07:53)
[2018-03-06] MEDS: fentaNYL 50 MCG/HR Transdermal Patch TRDERM SCH (07:54)
[2018-03-06] MEDS: LORazepam 0.5 MG Tab PO PRN (20:21)
[2018-03-06] MEDS: SEROQUEL 400 MG PO SCH (20:21)
[2018-03-06] MEDS: Acetaminophen/HYDROcodone 325-5 MG Tab PO PRN (20:38)
[2018-03-07] MEDS: Acetaminophen/HYDROcodone 325-5 MG Tab PO PRN ×2 (00:32→20:26)
[2018-03-07] MEDS: Ciprofloxacin 500 MG Tab PO SCH ×2 (08:46→20:25)
[2018-03-07] MEDS: Magnesium Hydroxide 400 MG/5 ML Susp 30 ML Cup PO SCH (08:47)
[2018-03-07] MEDS: Non-Formulary Medication 1 Each (Metronidazole [Metronidazole 0.75% Cream] 1 APPLIC) TOP SCH (08:48)
[2018-03-07] MEDS: Acetaminophen 650 MG Tab.ER PO SCH ×2 (08:48→20:55)
[2018-03-07] MEDS: DOCUSATE PO SCH ×2 (08:48→20:25)
[2018-03-07] MEDS: SENNOSIDES PO SCH ×2 (08:48→20:25)
[2018-03-07] MEDS: Citalopram 20 MG Tab PO SCH (08:48)
[2018-03-07] MEDS: SEROQUEL 400 MG PO SCH (20:25)
[2018-03-07] MEDS: LORazepam 0.5 MG Tab PO PRN (20:26)
[2018-03-08] MEDS: Citalopram 20 MG Tab PO SCH (07:41)
[2018-03-08] MEDS: Magnesium Hydroxide 400 MG/5 ML Susp 30 ML Cup PO SCH (07:42)
[2018-03-08] MEDS: Non-Formulary Medication 1 Each (Metronidazole [Metronidazole 0.75% Cream] 1 APPLIC) TOP SCH (07:42)
[2018-03-08] MEDS: Ciprofloxacin 500 MG Tab PO SCH ×2 (07:42→19:33)
[2018-03-08] MEDS: DOCUSATE PO SCH ×2 (07:43→17:36)
[2018-03-08] MEDS: SENNOSIDES PO SCH ×2 (07:43→17:36)
[2018-03-08] MEDS: Acetaminophen 650 MG Tab.ER PO SCH ×2 (07:43→19:30)
[2018-03-08] MEDS: SEROQUEL 400 MG PO SCH (19:29)
[2018-03-08] MEDS: LORazepam 0.5 MG Tab PO PRN (19:29)
[2018-03-08] MEDS: Acetaminophen/HYDROcodone 325-5 MG Tab PO PRN (19:30)
[2018-03-09] MEDS: DOCUSATE PO SCH ×2 (08:30→17:30)
[2018-03-09] MEDS: Acetaminophen 650 MG Tab.ER PO SCH ×2 (08:30→19:17)
[2018-03-09] MEDS: Citalopram 20 MG Tab PO SCH (08:30)
[2018-03-09] MEDS: Magnesium Hydroxide 400 MG/5 ML Susp 30 ML Cup PO SCH (08:30)
[2018-03-09] MEDS: SENNOSIDES PO SCH ×2 (08:30→17:30)
[2018-03-09] MEDS: fentaNYL 25 MCG/HR Transdermal Patch TRDERM SCH (10:10)
[2018-03-09] MEDS: fentaNYL 50 MCG/HR Transdermal Patch TRDERM SCH (10:10)
[2018-03-09] MEDS: Non-Formulary Medication 1 Each (Metronidazole [Metronidazole 0.75% Cream] 1 APPLIC) TOP SCH (10:17)
[2018-03-09] MEDS: Acetaminophen/HYDROcodone 325-5 MG Tab PO PRN (12:12)
--- NOTE | 2018-03-09 14:55 | PCM.PN ---
- General Info Date of Service: 03/08/18 Subjective Update: Patient is stable with ability to eat small meals with nursing staff feeding. Patient has slowly deconditioned and remains bed ridden. He appears comfortable with no concerns. Functional Status: Reports: Pain Controlled, Tolerating Diet - Review of Systems General: Reports: Weakness HEENT: Reports: No Symptoms Pulmonary: Reports: No Symptoms Cardiovascular: Reports: No Symptoms Gastrointestinal: Reports: No Symptoms Genitourinary: Reports: Incontinence Musculoskeletal: Reports: No Symptoms Skin: Reports: Other (stage 1 ulceration of buttocks) Neurological: Reports: Confusion, Weakness - Patient Data Vitals - Most Recent: Last Vital Signs Temp 36.9 C 02/24/18 10:32 Pulse 105 H 02/23/18 18:22 Resp 16 01/24/18 05:54 BP 139/63 01/24/18 05:54 Pulse Ox 93 L 01/24/18 05:54 Weight - Most Recent: 58.241 kg I&O - Last 24 Hours: Intake & Output 03/08/18 03/09/18 03/09/18 22:59 06:59 14:59 Intake Total 120 Output Total 450 Balance -450 120 Med Orders - Current: Current Medications Acetaminophen (Tylenol Arthritis Pain) 650 mg PO BID [facility] Last Admin: 03/09/18 08:30 Dose: 650 mg Hydrocodone Bitart/Acetaminophen ([place] 325-5 Mg) 1 tab PO Q4H PRN PRN Reason: MODERATE PAIN Last Admin: 03/09/18 12:12 Dose: 1 tab Albuterol (Proventil Neb Soln) 2.5 mg NEB Q4H PRN PRN Reason: Shortness of Breath Last Admin: 02/24/18 10:25 Dose: 2.5 mg Bisacodyl (Dulcolax) 10 mg RECTAL DAILY PRN PRN Reason: CONSTIPATION Last Admin: 02/06/18 06:10 Dose: 10 mg Citalopram Hydrobromide (Celexa) 20 mg PO DAILY [facility] Last Admin: 03/09/18 08:30 Dose: 20 mg Fentanyl (Duragesic) 25 mcg TRDERM Q72H [facility] Last Admin: 03/09/18 10:10 Dose: 25 mcg Fentanyl (Duragesic) 50 mcg TRDERM Q72H [facility] Last Admin: 03/09/18 10:10 Dose: 50 mcg Loperamide HCl (Imodium) 2 mg PO Q4H PRN PRN Reason: DIARRHEA Lorazepam (Ativan) 0.5 mg PO Q8H PRN PRN Reason: ANXIETY Last Admin: 03/08/18 19:29 Dose: 0.5 mg Magnesium Hydroxide (Milk Of Magnesia) 30 ml PO DAILY [facility] Last Admin: 03/09/18 08:30 Dose: 30 ml Miscellaneous Information (Remove Patch) 1 ea TRDERM Q72H [facility] Last Admin: 03/09/18 10:08 Dose: Not Given Morphine Sulfate (Morphine) 2 mg SUBCUT Q4H PRN PRN Reason: PAIN Last Admin: 02/14/18 14:43 Dose: 2 mg Seroquel 400mg (Tablets) 1 each PO BEDTIME [facility] Last Admin: 03/08/18 19:29 Dose: 1 each Non-Formulary Medication (Metronidazole [Metronidazole 0.75% Cream]) 1 applic TOP DAILY [facility] Last Admin: 03/09/18 10:17 Dose: 1 applic Quetiapine Fumarate (Seroquel) 50 mg PO BEDTIME [facility] Last Admin: 03/08/18 19:29 Dose: 50 mg Quetiapine Fumarate (Seroquel) 200 mg PO DAILY@0800,1200 [facility] Last Admin: 03/09/18 12:12 Dose: 200 mg Quetiapine Fumarate (Seroquel) 50 mg PO DAILY@0800,1200 [facility] Last Admin: 03/09/18 12:12 Dose: 50 mg Scopolamine (Transderm-Scop) 1.5 mg TOP Q72H PRN PRN Reason: SECRETIONS Senna/Docusate Sodium (Senna Plus) 1 tab PO BID@0800,1700 [facility] Last Admin: 03/09/18 08:30 Dose: 1 tab Discontinued Medications Acetaminophen (Tylenol) 650 mg PO BID [facility] Last Admin: 10/19/17 07:20 Dose: 650 mg Ciprofloxacin (Ciprofloxacin Hcl) 250 mg PO BID [facility] Stop: 12/04/17 20:01 Last Admin: 12/04/17 20:30 Dose: Not Given Ciprofloxacin (Ciprofloxacin Hcl) 500 mg PO BID [facility] Stop: 03/08/18 23:59 Last Admin: 03/08/18 19:33 Dose: 500 mg Fentanyl (Duragesic) 25 mcg TRDERM Q72H [facility] Last Admin: 12/01/17 08:00 Dose: 25 mcg Fentanyl (Duragesic) 12 mcg TRDERM Q72H [facility] Last Admin: 12/01/17 08:00 Dose: 12 mcg Fentanyl (Duragesic) 12 mcg TRDERM Q72H [facility] Last Admin: 12/03/17 20:20 Dose: Not Given Fentanyl (Duragesic) 25 mcg TRDERM ONETIME ONE Stop: 12/02/17 18:31 Last Admin: 12/02/17 18:37 Dose: 25 mcg Fentanyl (Duragesic) 50 mcg TRDERM Q72H [facility] Last Admin: 12/04/17 11:45 Dose: Not Given Fentanyl (Duragesic) 50 mcg TRDERM Q72H [facility] Last Admin: 12/16/17 09:19 Dose: 50 mcg Fentanyl (Duragesic) 50 mcg TRDERM Q72H [facility] Last Admin: 01/18/18 12:25 Dose: 50 mcg Fentanyl (Duragesic) 50 mcg TRDERM Q72H [facility] Last Admin: 02/13/18 09:00 Dose: 50 mcg Fentanyl (Duragesic) 75 mcg TRDERM Q72H [facility] Last Admin: 02/15/18 11:03 Dose: Not Given Fentanyl (Duragesic) 50 mcg TRDERM Q72H [facility] Last Admin: 02/16/18 09:19 Dose: Not Given Lactated Ringer's (Ringers, Lactated) 1,000 mls @ 75 mls/hr IV ASDIRECTED [facility] Lorazepam (Ativan) Confirm Administered Dose 2 mg .ROUTE .STK-MED ONE Stop: 10/10/17 19:54 Last Admin: 10/10/17 20:02 Dose: 2 mg Lorazepam (Ativan) 1 mg IM Q4H PRN PRN Reason: Agitation Last Admin: 01/07/18 19:07 Dose: 1 mg Magnesium Hydroxide (Milk Of Magnesia) Confirm Administered Dose 30 ml .ROUTE .STK-MED ONE Stop: 12/09/17 15:52 Last Admin: 12/09/17 15:59 Dose: 30 ml Magnesium Hydroxide (Milk Of Magnesia) Confirm Administered Dose 30 ml .ROUTE .STK-MED ONE Stop: 12/17/17 10:02 Last Admin: 12/17/17 10:11 Dose: 30 ml Magnesium Hydroxide (Milk Of Magnesia) 30 ml PO BEDTIME [facility] Last Admin: 12/20/17 00:06 Dose: Not Given Magnesium Hydroxide (Milk Of Magnesia) 30 ml PO DAILY@0800 [facility] Last Admin: 12/20/17 10:13 Dose: 30 ml Miscellaneous Information (Remove Patch) 1 ea TRDERM Q72H [facility] Last Admin: 12/01/17 08:00 Dose: 1 ea Miscellaneous Information (Remove Patch) 1 ea TRDERM Q72H [facility] Last Admin: 01/21/18 08:45 Dose: Not Given Senna (Senna) 8.6 mg PO BID@0800,1700 [facility] Last Admin: 12/18/17 08:51 Dose: 8.6 mg Senna/Docusate Sodium (Senna Plus) 1 tab PO BID@0800,1700 [facility] Last Admin: 12/08/17 07:19 Dose: 1 tab Senna/Docusate Sodium (Senna Plus) 1 tab PO BID [facility] Sodium Biphosphate/Sodium Phosphate (Fleet Enema) 133 ml RECTAL ONETIME ONE Stop: 12/09/17 15:59 Last Admin: 12/09/17 16:25 Dose: 1 bottle - Exam General: Obtunded HEENT: Pupils Equal, Pupils Reactive Neck: Supple Lungs: Normal Respiratory Effort, Rales Cardiovascular: Regular Rate, Regular Rhythm GI/Abdominal Exam: Normal Bowel Sounds Extremities: Normal Inspection Peripheral Pulses: 2+: Dorsalis Pedis (L), Dorsalis Pedis (R) Skin: Warm, Dry, Intact, Other (stage 1 ulcer of buttocks) Neurological: No New Focal Deficit - Problem List & Annotations (1) Comfort measures only status SNOMED Code(s): 53839472432897 Code(s): Z51.5 - ENCOUNTER FOR PALLIATIVE CARE Status: Chronic Priority: High Current Visit: Yes (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 Code(s): F03.91 - UNSPECIFIED DEMENTIA WITH BEHAVIORAL DISTURBANCE Status: Chronic Priority: High Current Visit: Yes Qualifiers: Dementia behavioral disturbance: with behavioral disturbance Qualified Code (s): F02.81 - Dementia in other diseases classified elsewhere with behavioral disturbance (3) Diabetes mellitus SNOMED Code(s): 83857243 Code(s): E11.9 - TYPE 2 DIABETES MELLITUS WITHOUT COMPLICATIONS Status: Chronic Priority: Medium Current Visit: Yes Qualifiers: Diabetes mellitus type: type 2 Diabetes mellitus half-way insulin use: without half-way use Diabetes mellitus complication status: with hyperglycemia Qualified Code(s): E11.65 - Type 2 diabetes mellitus with hyperglycemia (4) Incontinence overflow, urine SNOMED Code(s): 552357108 Code(s): N39.490 - OVERFLOW INCONTINENCE Status: Chronic Priority: Medium Current Visit: Yes (5) Neurogenic bladder SNOMED Code(s): 605331646 Code(s): N31.9 - NEUROMUSCULAR DYSFUNCTION OF BLADDER, UNSPECIFIED Status: Chronic Priority: Medium Current Visit: Yes (6) Palliative care patient SNOMED Code(s): 210333658 Code(s): Z51.5 - ENCOUNTER FOR PALLIATIVE CARE Status: Chronic Priority: High Current Visit: Yes (7) Paranoid schizophrenia, chronic condition SNOMED Code(s): 16714122 Code(s): F20.0 - PARANOID SCHIZOPHRENIA Status: Chronic Priority: High Current Visit: Yes - Problem List Review Problem List Initiated/Reviewed/Updated: Yes - Plan Plan:: Patient to continue current diet and management. No changes to supportive care. We will also continue to monitor for any bed sores. Patient resting well and is very stable. 11/09/17 No changes to status at this time. Patient is resting comfortably. He does eat with help from nursing staff. 12/17/17 Patient stable and continues on comfort cares. No changes to medications or status. Continue current diet and monitoring. 01/04/18 No changes to care of patient. We will continue comfort cares with current diet. 01/11/18 Patient continues with comfort cares and is eating routinely with certain nurses. 01/19/18 No changes at this time. We will continue current cares and comfort cares. 01/25/18 We will continue comfort cares. Continue feeding as routine and oral cares. Continue to monitor bed sores and continue turning. 02/04/18 Patient is not as responsive. We will continue feeding as tolerated if alert and continue current cares and pain management. Patient does appear much weaker and thinner. 02/16/18 Patient is stable and we have increase pain management due to increased signs of agitation and grimacing with movement during bed turning and hygiene. 03/01/18 Patient is stable with no current medication changes. We have added temporary Cipro for 5 days to treat 2 different bacteria. All 4 cultured are sensitive to Cipro. (his urine was cloudy and patient exhibited symptoms of confusion prior to obtaining UA and culture) 03/09/18 No changes to medications. We will continue to monitor pain and decubitus ulceration. Continue comfort cares and adjustment as needed. Nursing to maintain feeding as tolerated. CAR LUBRICATOR consult as needed.
[2018-03-09] MEDS: SEROQUEL 400 MG PO SCH (19:17)
[2018-03-10] MEDS: Citalopram 20 MG Tab PO SCH (08:30)
[2018-03-10] MEDS: DOCUSATE PO SCH ×2 (08:30→17:28)
[2018-03-10] MEDS: Acetaminophen 650 MG Tab.ER PO SCH ×2 (08:30→19:33)
[2018-03-10] MEDS: SENNOSIDES PO SCH ×2 (08:30→17:28)
[2018-03-10] MEDS: Acetaminophen/HYDROcodone 325-5 MG Tab PO PRN ×2 (08:30→19:34)
[2018-03-10] MEDS: Magnesium Hydroxide 400 MG/5 ML Susp 30 ML Cup PO SCH (08:30)
[2018-03-10] MEDS: SEROQUEL 400 MG PO SCH (19:34)
[2018-03-10] MEDS: LORazepam 0.5 MG Tab PO PRN (19:34)
[2018-03-10] MEDS: Non-Formulary Medication 1 Each (Metronidazole [Metronidazole 0.75% Cream] 1 APPLIC) TOP SCH (19:40)
[2018-03-11] MEDS: Citalopram 20 MG Tab PO SCH (08:06)
[2018-03-11] MEDS: Magnesium Hydroxide 400 MG/5 ML Susp 30 ML Cup PO SCH (08:06)
[2018-03-11] MEDS: Non-Formulary Medication 1 Each (Metronidazole [Metronidazole 0.75% Cream] 1 APPLIC) TOP SCH (08:08)
[2018-03-11] MEDS: Acetaminophen 650 MG Tab.ER PO SCH ×2 (08:08→20:44)
[2018-03-11] MEDS: DOCUSATE PO SCH ×2 (08:09→17:05)
[2018-03-11] MEDS: SENNOSIDES PO SCH ×2 (08:09→17:05)
[2018-03-11] MEDS: LORazepam 0.5 MG Tab PO PRN (20:43)
[2018-03-11] MEDS: SEROQUEL 400 MG PO SCH (20:43)
[2018-03-11] MEDS: Acetaminophen/HYDROcodone 325-5 MG Tab PO PRN (20:44)
[2018-03-12] MEDS: Acetaminophen 650 MG Tab.ER PO SCH ×2 (07:32→19:15)
[2018-03-12] MEDS: Citalopram 20 MG Tab PO SCH (07:32)
[2018-03-12] MEDS: Magnesium Hydroxide 400 MG/5 ML Susp 30 ML Cup PO SCH (07:33)
[2018-03-12] MEDS: DOCUSATE PO SCH ×2 (07:33→17:18)
[2018-03-12] MEDS: SENNOSIDES PO SCH ×2 (07:33→17:18)
[2018-03-12] MEDS: Non-Formulary Medication 1 Each (Metronidazole [Metronidazole 0.75% Cream] 1 APPLIC) TOP SCH (07:34)
[2018-03-12] MEDS: FENTANYL 75 MCG TRDERM SCH (07:49)
[2018-03-12] MEDS: Acetaminophen/HYDROcodone 325-5 MG Tab PO PRN ×2 (11:38→19:15)
[2018-03-12] MEDS: Albuterol 0.083% 2.5 MG/3 ML Neb Soln NEB PRN (13:35)
[2018-03-12] MEDS: SEROQUEL 400 MG PO SCH (19:15)
[2018-03-12] MEDS: LORazepam 0.5 MG Tab PO PRN (19:15)
[2018-03-13] MEDS: Acetaminophen/HYDROcodone 325-5 MG Tab PO PRN ×2 (08:00→20:00)
[2018-03-13] MEDS: Magnesium Hydroxide 400 MG/5 ML Susp 30 ML Cup PO SCH (08:00)
[2018-03-13] MEDS: Citalopram 20 MG Tab PO SCH (08:01)
[2018-03-13] MEDS: SENNOSIDES PO SCH ×2 (08:03→17:23)
[2018-03-13] MEDS: Acetaminophen 650 MG Tab.ER PO SCH ×2 (08:03→19:59)
[2018-03-13] MEDS: DOCUSATE PO SCH ×2 (08:03→17:23)
[2018-03-13] MEDS: Non-Formulary Medication 1 Each (Metronidazole [Metronidazole 0.75% Cream] 1 APPLIC) TOP SCH (08:11)
[2018-03-13] MEDS: SEROQUEL 400 MG PO SCH (19:58)
[2018-03-13] MEDS: LORazepam 0.5 MG Tab PO PRN (19:59)
[2018-03-14] MEDS: Citalopram 20 MG Tab PO SCH (07:43)
[2018-03-14] MEDS: Acetaminophen/HYDROcodone 325-5 MG Tab PO PRN ×2 (07:43→20:50)
[2018-03-14] MEDS: Non-Formulary Medication 1 Each (Metronidazole [Metronidazole 0.75% Cream] 1 APPLIC) TOP SCH (07:44)
[2018-03-14] MEDS: DOCUSATE PO SCH ×2 (07:44→17:13)
[2018-03-14] MEDS: SENNOSIDES PO SCH ×2 (07:44→17:13)
[2018-03-14] MEDS: Acetaminophen 650 MG Tab.ER PO SCH ×2 (07:44→20:50)
[2018-03-14] MEDS: Magnesium Hydroxide 400 MG/5 ML Susp 30 ML Cup PO SCH (07:45)
[2018-03-14] MEDS: LORazepam 0.5 MG Tab PO PRN (20:50)
[2018-03-14] MEDS: SEROQUEL 400 MG PO SCH (20:50)
[2018-03-15] MEDS: Citalopram 20 MG Tab PO SCH (07:50)
[2018-03-15] MEDS: SENNOSIDES PO SCH ×2 (07:51→17:10)
[2018-03-15] MEDS: Acetaminophen 650 MG Tab.ER PO SCH ×2 (07:51→20:43)
[2018-03-15] MEDS: Magnesium Hydroxide 400 MG/5 ML Susp 30 ML Cup PO SCH (07:51)
[2018-03-15] MEDS: Non-Formulary Medication 1 Each (Metronidazole [Metronidazole 0.75% Cream] 1 APPLIC) TOP SCH (07:51)
[2018-03-15] MEDS: DOCUSATE PO SCH ×2 (07:51→17:10)
[2018-03-15] MEDS: FENTANYL 75 MCG TRDERM SCH (07:53)
[2018-03-15] MEDS: Acetaminophen/HYDROcodone 325-5 MG Tab PO PRN ×2 (17:10→21:48)
[2018-03-15] MEDS: SEROQUEL 400 MG PO SCH (20:43)
[2018-03-15] MEDS: LORazepam 0.5 MG Tab PO PRN (21:47)
[2018-03-16] MEDS: Citalopram 20 MG Tab PO SCH (07:55)
[2018-03-16] MEDS: SENNOSIDES PO SCH ×2 (07:55→17:12)
[2018-03-16] MEDS: DOCUSATE PO SCH ×2 (07:55→17:12)
[2018-03-16] MEDS: Acetaminophen 650 MG Tab.ER PO SCH ×2 (07:56→19:31)
[2018-03-16] MEDS: Magnesium Hydroxide 400 MG/5 ML Susp 30 ML Cup PO SCH (07:56)
[2018-03-16] MEDS: Non-Formulary Medication 1 Each (Metronidazole [Metronidazole 0.75% Cream] 1 APPLIC) TOP SCH (07:56)
[2018-03-16] MEDS: Acetaminophen/HYDROcodone 325-5 MG Tab PO PRN (19:29)
[2018-03-16] MEDS: SEROQUEL 400 MG PO SCH (19:30)
[2018-03-16] MEDS: LORazepam 0.5 MG Tab PO PRN (19:31)
[2018-03-17] MEDS: Magnesium Hydroxide 400 MG/5 ML Susp 30 ML Cup PO SCH (09:05)
[2018-03-17] MEDS: Citalopram 20 MG Tab PO SCH (09:06)
[2018-03-17] MEDS: Non-Formulary Medication 1 Each (Metronidazole [Metronidazole 0.75% Cream] 1 APPLIC) TOP SCH (09:07)
[2018-03-17] MEDS: Acetaminophen 650 MG Tab.ER PO SCH ×2 (09:08→19:33)
[2018-03-17] MEDS: SENNOSIDES PO SCH ×2 (09:08→17:56)
[2018-03-17] MEDS: DOCUSATE PO SCH ×2 (09:08→17:56)
[2018-03-17] MEDS: SEROQUEL 400 MG PO SCH (19:33)
[2018-03-18] MEDS: FENTANYL 75 MCG TRDERM SCH (08:30)
[2018-03-18] MEDS: Non-Formulary Medication 1 Each (Metronidazole [Metronidazole 0.75% Cream] 1 APPLIC) TOP SCH (08:36)
[2018-03-18] MEDS: Citalopram 20 MG Tab PO SCH (08:36)
[2018-03-18] MEDS: Magnesium Hydroxide 400 MG/5 ML Susp 30 ML Cup PO SCH (08:37)
[2018-03-18] MEDS: SENNOSIDES PO SCH ×2 (08:37→20:23)
[2018-03-18] MEDS: Acetaminophen 650 MG Tab.ER PO SCH ×2 (08:37→20:23)
[2018-03-18] MEDS: DOCUSATE PO SCH ×2 (08:37→20:23)
[2018-03-18] MEDS: SEROQUEL 400 MG PO SCH (20:23)
[2018-03-19] MEDS: Non-Formulary Medication 1 Each (Metronidazole [Metronidazole 0.75% Cream] 1 APPLIC) TOP SCH (08:00)
[2018-03-19] MEDS: Magnesium Hydroxide 400 MG/5 ML Susp 30 ML Cup PO SCH (08:00)
[2018-03-19] MEDS: SENNOSIDES PO SCH ×2 (08:00→16:39)
[2018-03-19] MEDS: DOCUSATE PO SCH ×2 (08:00→16:39)
[2018-03-19] MEDS: Acetaminophen 650 MG Tab.ER PO SCH ×2 (08:00→20:24)
[2018-03-19] MEDS: Citalopram 20 MG Tab PO SCH (08:00)
[2018-03-19] MEDS: Acetaminophen/HYDROcodone 325-5 MG Tab PO PRN ×2 (16:39→20:24)
[2018-03-19] MEDS: SEROQUEL 400 MG PO SCH (20:24)
[2018-03-19] MEDS: LORazepam 0.5 MG Tab PO PRN (20:25)
[2018-03-20] MEDS: Non-Formulary Medication 1 Each (Metronidazole [Metronidazole 0.75% Cream] 1 APPLIC) TOP SCH (08:00)
[2018-03-20] MEDS: DOCUSATE PO SCH ×2 (08:00→18:05)
[2018-03-20] MEDS: Acetaminophen 650 MG Tab.ER PO SCH ×2 (08:00→20:37)
[2018-03-20] MEDS: Citalopram 20 MG Tab PO SCH (08:00)
[2018-03-20] MEDS: Magnesium Hydroxide 400 MG/5 ML Susp 30 ML Cup PO SCH (08:00)
[2018-03-20] MEDS: SENNOSIDES PO SCH ×2 (08:00→18:05)
[2018-03-20] MEDS: Acetaminophen/HYDROcodone 325-5 MG Tab PO PRN ×2 (12:30→20:37)
[2018-03-20] MEDS: SEROQUEL 400 MG PO SCH (20:37)
[2018-03-21] MEDS: Citalopram 20 MG Tab PO SCH (07:42)
[2018-03-21] MEDS: SENNOSIDES PO SCH ×2 (07:42→17:30)
[2018-03-21] MEDS: DOCUSATE PO SCH ×2 (07:42→17:30)
[2018-03-21] MEDS: Magnesium Hydroxide 400 MG/5 ML Susp 30 ML Cup PO SCH (07:42)
[2018-03-21] MEDS: Acetaminophen 650 MG Tab.ER PO SCH ×2 (07:42→20:48)
[2018-03-21] MEDS: FENTANYL 75 MCG TRDERM SCH (07:47)
[2018-03-21] MEDS: Non-Formulary Medication 1 Each (Metronidazole [Metronidazole 0.75% Cream] 1 APPLIC) TOP SCH (07:53)
[2018-03-21] MEDS: SEROQUEL 400 MG PO SCH (20:45)
[2018-03-21] MEDS: LORazepam 0.5 MG Tab PO PRN (20:53)
[2018-03-21] MEDS: Acetaminophen/HYDROcodone 325-5 MG Tab PO PRN (20:53)
[2018-03-22] MEDS: Scopolamine 1.5 MG Transdermal Patch TOP PRN (01:07)
[2018-03-22] MEDS: Citalopram 20 MG Tab PO SCH (08:19)
[2018-03-22] MEDS: Magnesium Hydroxide 400 MG/5 ML Susp 30 ML Cup PO SCH (08:19)
[2018-03-22] MEDS: Non-Formulary Medication 1 Each (Metronidazole [Metronidazole 0.75% Cream] 1 APPLIC) TOP SCH (08:19)
[2018-03-22] MEDS: SENNOSIDES PO SCH ×2 (08:20→17:03)
[2018-03-22] MEDS: DOCUSATE PO SCH ×2 (08:20→17:03)
[2018-03-22] MEDS: Acetaminophen 650 MG Tab.ER PO SCH ×2 (08:21→20:23)
[2018-03-22] MEDS: Acetaminophen/HYDROcodone 325-5 MG Tab PO PRN (19:30)
[2018-03-22] MEDS: SEROQUEL 400 MG PO SCH (20:23)
[2018-03-22] MEDS: LORazepam 0.5 MG Tab PO PRN (20:24)
[2018-03-23] MEDS: Citalopram 20 MG Tab PO SCH (07:57)
[2018-03-23] MEDS: Non-Formulary Medication 1 Each (Metronidazole [Metronidazole 0.75% Cream] 1 APPLIC) TOP SCH (07:57)
[2018-03-23] MEDS: Magnesium Hydroxide 400 MG/5 ML Susp 30 ML Cup PO SCH (07:58)
[2018-03-23] MEDS: DOCUSATE PO SCH ×2 (07:58→17:02)
[2018-03-23] MEDS: SENNOSIDES PO SCH ×2 (07:58→17:02)
[2018-03-23] MEDS: Acetaminophen 650 MG Tab.ER PO SCH ×2 (07:59→19:03)
[2018-03-23] MEDS: Acetaminophen/HYDROcodone 325-5 MG Tab PO PRN ×2 (12:00→19:03)
[2018-03-23] MEDS: SEROQUEL 400 MG PO SCH (19:03)
[2018-03-24] MEDS: FENTANYL 75 MCG TRDERM SCH (07:37)
[2018-03-24] MEDS: Citalopram 20 MG Tab PO SCH (07:37)
[2018-03-24] MEDS: Magnesium Hydroxide 400 MG/5 ML Susp 30 ML Cup PO SCH (07:38)
[2018-03-24] MEDS: Non-Formulary Medication 1 Each (Metronidazole [Metronidazole 0.75% Cream] 1 APPLIC) TOP SCH (07:38)
[2018-03-24] MEDS: Acetaminophen 650 MG Tab.ER PO SCH ×2 (07:40→20:18)
[2018-03-24] MEDS: SENNOSIDES PO SCH ×2 (07:40→17:42)
[2018-03-24] MEDS: DOCUSATE PO SCH ×2 (07:40→17:42)
[2018-03-24] MEDS: Acetaminophen/HYDROcodone 325-5 MG Tab PO PRN (20:18)
[2018-03-24] MEDS: SEROQUEL 400 MG PO SCH (20:18)
[2018-03-24] MEDS: LORazepam 0.5 MG Tab PO PRN (20:19)
[2018-03-25] MEDS: Acetaminophen/HYDROcodone 325-5 MG Tab PO PRN ×2 (07:46→19:35)
[2018-03-25] MEDS: Magnesium Hydroxide 400 MG/5 ML Susp 30 ML Cup PO SCH (07:46)
[2018-03-25] MEDS: Citalopram 20 MG Tab PO SCH (07:46)
[2018-03-25] MEDS: Non-Formulary Medication 1 Each (Metronidazole [Metronidazole 0.75% Cream] 1 APPLIC) TOP SCH (07:47)
[2018-03-25] MEDS: DOCUSATE PO SCH ×2 (07:47→17:35)
[2018-03-25] MEDS: Acetaminophen 650 MG Tab.ER PO SCH ×2 (07:47→19:35)
[2018-03-25] MEDS: SENNOSIDES PO SCH ×2 (07:47→17:35)
[2018-03-25] MEDS: LORazepam 0.5 MG Tab PO PRN (19:35)
[2018-03-25] MEDS: SEROQUEL 400 MG PO SCH (19:35)
[2018-03-26] MEDS: Citalopram 20 MG Tab PO SCH (08:43)
[2018-03-26] MEDS: SENNOSIDES PO SCH ×2 (08:43→17:31)
[2018-03-26] MEDS: Acetaminophen 650 MG Tab.ER PO SCH ×2 (08:43→19:47)
[2018-03-26] MEDS: Magnesium Hydroxide 400 MG/5 ML Susp 30 ML Cup PO SCH (08:43)
[2018-03-26] MEDS: DOCUSATE PO SCH ×2 (08:43→17:31)
[2018-03-26] MEDS: Non-Formulary Medication 1 Each (Metronidazole [Metronidazole 0.75% Cream] 1 APPLIC) TOP SCH (08:43)
[2018-03-26] MEDS: SEROQUEL 400 MG PO SCH (19:47)
[2018-03-26] MEDS: Acetaminophen/HYDROcodone 325-5 MG Tab PO PRN (19:56)
[2018-03-26] MEDS: LORazepam 0.5 MG Tab PO PRN (19:56)
[2018-03-27] MEDS: Acetaminophen 650 MG Tab.ER PO SCH ×2 (08:42→20:00)
[2018-03-27] MEDS: Citalopram 20 MG Tab PO SCH (08:42)
[2018-03-27] MEDS: SENNOSIDES PO SCH ×2 (08:42→17:06)
[2018-03-27] MEDS: DOCUSATE PO SCH ×2 (08:42→17:06)
[2018-03-27] MEDS: Magnesium Hydroxide 400 MG/5 ML Susp 30 ML Cup PO SCH (08:43)
[2018-03-27] MEDS: Non-Formulary Medication 1 Each (Metronidazole [Metronidazole 0.75% Cream] 1 APPLIC) TOP SCH (08:44)
[2018-03-27] MEDS: FENTANYL 75 MCG TRDERM SCH (08:48)
[2018-03-27] MEDS: LORazepam 0.5 MG Tab PO PRN (20:00)
[2018-03-27] MEDS: SEROQUEL 400 MG PO SCH (20:00)
[2018-03-27] MEDS: Acetaminophen/HYDROcodone 325-5 MG Tab PO PRN (20:01)
[2018-03-28] MEDS: Acetaminophen 650 MG Tab.ER PO SCH ×2 (08:38→20:00)
[2018-03-28] MEDS: Citalopram 20 MG Tab PO SCH (08:38)
[2018-03-28] MEDS: Non-Formulary Medication 1 Each (Metronidazole [Metronidazole 0.75% Cream] 1 APPLIC) TOP SCH (08:39)
[2018-03-28] MEDS: Magnesium Hydroxide 400 MG/5 ML Susp 30 ML Cup PO SCH (08:39)
[2018-03-28] MEDS: SENNOSIDES PO SCH ×2 (08:39→23:26)
[2018-03-28] MEDS: DOCUSATE PO SCH ×2 (08:39→23:26)
[2018-03-28] MEDS: LORazepam 0.5 MG Tab PO PRN (20:00)
[2018-03-28] MEDS: SEROQUEL 400 MG PO SCH (20:00)
[2018-03-28] MEDS: Acetaminophen/HYDROcodone 325-5 MG Tab PO PRN (20:00)
[2018-03-29] MEDS: Magnesium Hydroxide 400 MG/5 ML Susp 30 ML Cup PO SCH (08:49)
[2018-03-29] MEDS: SENNOSIDES PO SCH ×2 (08:50→17:00)
[2018-03-29] MEDS: Acetaminophen 650 MG Tab.ER PO SCH ×2 (08:50→19:51)
[2018-03-29] MEDS: Non-Formulary Medication 1 Each (Metronidazole [Metronidazole 0.75% Cream] 1 APPLIC) TOP SCH (08:50)
[2018-03-29] MEDS: DOCUSATE PO SCH ×2 (08:50→17:00)
[2018-03-29] MEDS: Citalopram 20 MG Tab PO SCH (08:50)
[2018-03-29] MEDS: LORazepam 0.5 MG Tab PO PRN (19:50)
[2018-03-29] MEDS: SEROQUEL 400 MG PO SCH (19:51)
[2018-03-30] MEDS: DOCUSATE PO SCH ×2 (08:05→17:31)
[2018-03-30] MEDS: SENNOSIDES PO SCH ×2 (08:05→17:31)
[2018-03-30] MEDS: FENTANYL 75 MCG TRDERM SCH (08:06)
[2018-03-30] MEDS: Citalopram 20 MG Tab PO SCH (08:07)
[2018-03-30] MEDS: Magnesium Hydroxide 400 MG/5 ML Susp 30 ML Cup PO SCH (08:08)
[2018-03-30] MEDS: Acetaminophen 650 MG Tab.ER PO SCH ×2 (08:08→19:36)
[2018-03-30] MEDS: Non-Formulary Medication 1 Each (Metronidazole [Metronidazole 0.75% Cream] 1 APPLIC) TOP SCH (08:08)
[2018-03-30] MEDS: Acetaminophen/HYDROcodone 325-5 MG Tab PO PRN (19:36)
[2018-03-30] MEDS: SEROQUEL 400 MG PO SCH (19:36)
[2018-03-30] MEDS: LORazepam 0.5 MG Tab PO PRN (19:36)
[2018-03-31] MEDS: Acetaminophen/HYDROcodone 325-5 MG Tab PO PRN ×3 (01:39→21:29)
[2018-03-31] MEDS: Acetaminophen 650 MG Tab.ER PO SCH ×2 (08:01→21:30)
[2018-03-31] MEDS: SENNOSIDES PO SCH ×2 (08:01→17:25)
[2018-03-31] MEDS: Citalopram 20 MG Tab PO SCH (08:01)
[2018-03-31] MEDS: DOCUSATE PO SCH ×2 (08:01→17:25)
[2018-03-31] MEDS: Magnesium Hydroxide 400 MG/5 ML Susp 30 ML Cup PO SCH (08:02)
[2018-03-31] MEDS: Non-Formulary Medication 1 Each (Metronidazole [Metronidazole 0.75% Cream] 1 APPLIC) TOP SCH (08:02)
[2018-03-31] MEDS: LORazepam 0.5 MG Tab PO PRN (21:28)
[2018-03-31] MEDS: SEROQUEL 400 MG PO SCH (21:29)
[2018-04-01] MEDS: Citalopram 20 MG Tab PO SCH (09:10)
[2018-04-01] MEDS: DOCUSATE PO SCH ×2 (09:10→17:11)
[2018-04-01] MEDS: Acetaminophen 650 MG Tab.ER PO SCH ×2 (09:10→20:45)
[2018-04-01] MEDS: SENNOSIDES PO SCH ×2 (09:10→17:11)
[2018-04-01] MEDS: Non-Formulary Medication 1 Each (Metronidazole [Metronidazole 0.75% Cream] 1 APPLIC) TOP SCH (09:10)
[2018-04-01] MEDS: Magnesium Hydroxide 400 MG/5 ML Susp 30 ML Cup PO SCH (09:11)
[2018-04-01] MEDS: SEROQUEL 400 MG PO SCH (20:43)
[2018-04-01] MEDS: Acetaminophen/HYDROcodone 325-5 MG Tab PO PRN (20:44)
[2018-04-01] MEDS: LORazepam 0.5 MG Tab PO PRN (20:48)
[2018-04-02] MEDS: Non-Formulary Medication 1 Each (Metronidazole [Metronidazole 0.75% Cream] 1 APPLIC) TOP SCH (08:59)
[2018-04-02] MEDS: DOCUSATE PO SCH ×2 (08:59→17:54)
[2018-04-02] MEDS: SENNOSIDES PO SCH ×2 (08:59→17:54)
[2018-04-02] MEDS: Citalopram 20 MG Tab PO SCH (08:59)
[2018-04-02] MEDS: Magnesium Hydroxide 400 MG/5 ML Susp 30 ML Cup PO SCH (08:59)
[2018-04-02] MEDS: Acetaminophen 650 MG Tab.ER PO SCH ×2 (09:00→20:21)
[2018-04-02] MEDS: FENTANYL 75 MCG TRDERM SCH (09:00)
[2018-04-02] MEDS: SEROQUEL 400 MG PO SCH (20:20)
[2018-04-02] MEDS: Acetaminophen/HYDROcodone 325-5 MG Tab PO PRN (20:20)
[2018-04-02] MEDS: LORazepam 0.5 MG Tab PO PRN (20:21)
[2018-04-03] MEDS: Citalopram 20 MG Tab PO SCH (07:47)
[2018-04-03] MEDS: Magnesium Hydroxide 400 MG/5 ML Susp 30 ML Cup PO SCH (07:48)
[2018-04-03] MEDS: SENNOSIDES PO SCH ×2 (07:49→16:35)
[2018-04-03] MEDS: DOCUSATE PO SCH ×2 (07:49→16:35)
[2018-04-03] MEDS: Acetaminophen 650 MG Tab.ER PO SCH ×2 (07:51→19:45)
[2018-04-03] MEDS: Acetaminophen/HYDROcodone 325-5 MG Tab PO PRN ×2 (07:55→19:45)
[2018-04-03] MEDS: Non-Formulary Medication 1 Each (Metronidazole [Metronidazole 0.75% Cream] 1 APPLIC) TOP SCH (09:39)
[2018-04-03] MEDS: Bisacodyl 10 MG Supp RECTAL PRN (09:42)
[2018-04-03] MEDS: LORazepam 0.5 MG Tab PO PRN (19:45)
[2018-04-03] MEDS: SEROQUEL 400 MG PO SCH (19:45)
[2018-04-04] MEDS: Citalopram 20 MG Tab PO SCH (07:44)
[2018-04-04] MEDS: Magnesium Hydroxide 400 MG/5 ML Susp 30 ML Cup PO SCH (07:44)
[2018-04-04] MEDS: SENNOSIDES PO SCH ×2 (07:45→18:08)
[2018-04-04] MEDS: DOCUSATE PO SCH ×2 (07:45→18:08)
[2018-04-04] MEDS: Acetaminophen 650 MG Tab.ER PO SCH ×2 (07:46→19:47)
[2018-04-04] MEDS: Acetaminophen/HYDROcodone 325-5 MG Tab PO PRN ×2 (07:47→19:47)
[2018-04-04] MEDS: Non-Formulary Medication 1 Each (Metronidazole [Metronidazole 0.75% Cream] 1 APPLIC) TOP SCH (12:13)
[2018-04-04] MEDS: SEROQUEL 400 MG PO SCH (19:46)
[2018-04-04] MEDS: LORazepam 0.5 MG Tab PO PRN (19:47)
[2018-04-05] MEDS: Acetaminophen/HYDROcodone 325-5 MG Tab PO PRN ×3 (07:30→19:40)
[2018-04-05] MEDS: Citalopram 20 MG Tab PO SCH (07:41)
[2018-04-05] MEDS: FENTANYL 75 MCG TRDERM SCH (07:41)
[2018-04-05] MEDS: Magnesium Hydroxide 400 MG/5 ML Susp 30 ML Cup PO SCH (07:42)
[2018-04-05] MEDS: Acetaminophen 650 MG Tab.ER PO SCH ×2 (07:42→19:40)
[2018-04-05] MEDS: DOCUSATE PO SCH ×2 (07:42→18:40)
[2018-04-05] MEDS: SENNOSIDES PO SCH ×2 (07:42→18:40)
[2018-04-05] MEDS: Non-Formulary Medication 1 Each (Metronidazole [Metronidazole 0.75% Cream] 1 APPLIC) TOP SCH (07:42)
--- NOTE | 2018-04-05 08:53 | PCM.PN ---
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) - Review of Systems General: Reports: Weakness HEENT: Reports: No Symptoms Pulmonary: Reports: No Symptoms Cardiovascular: Reports: No Symptoms Gastrointestinal: Reports: No Symptoms Genitourinary: Reports: Incontinence Musculoskeletal: Reports: No Symptoms Skin: Reports: Other (decubitus ulcerations of the buttocks - scheduled turning for patient and monitoring and use of wound care (mepiliex and dressings)) Neurological: Reports: Confusion, Weakness - Patient Data Vitals - Most Recent: Last Vital Signs Temp 36.9 C 02/24/18 10:32 Pulse 105 H 02/23/18 18:22 Resp 7 L 03/11/18 15:07 BP 139/63 01/24/18 05:54 Pulse Ox 88 L 03/11/18 15:07 Weight - Most Recent: 58.241 kg I&O - Last 24 Hours: Intake & Output 04/04/18 04/05/18 04/05/18 22:59 06:59 14:59 Intake Total 3600 Output Total 1050 Balance 2550 Med Orders - Current: Current Medications Acetaminophen (Tylenol Arthritis Pain) 650 mg PO BID [facility] Last Admin: 04/05/18 07:42 Dose: 650 mg Hydrocodone Bitart/Acetaminophen ([place] 325-5 Mg) 1 tab PO Q4H PRN PRN Reason: MODERATE PAIN Last Admin: 04/05/18 07:30 Dose: 1 tab Albuterol (Proventil Neb Soln) 2.5 mg NEB Q4H PRN PRN Reason: Shortness of Breath Last Admin: 03/12/18 13:35 Dose: 2.5 mg Bisacodyl (Dulcolax) 10 mg RECTAL DAILY PRN PRN Reason: CONSTIPATION Last Admin: 04/03/18 09:42 Dose: 10 mg Citalopram Hydrobromide (Celexa) 20 mg PO DAILY [facility] Last Admin: 04/05/18 07:41 Dose: 20 mg Fentanyl (Duragesic) 75 mcg TRDERM Q72H [facility] Last Admin: 04/05/18 07:41 Dose: 75 mcg Loperamide HCl (Imodium) 2 mg PO Q4H PRN PRN Reason: DIARRHEA Lorazepam (Ativan) 0.5 mg PO Q8H PRN PRN Reason: ANXIETY Last Admin: 04/04/18 19:47 Dose: 0.5 mg Magnesium Hydroxide (Milk Of Magnesia) 30 ml PO DAILY [facility] Last Admin: 04/05/18 07:42 Dose: 30 ml Miscellaneous Information (Remove Patch) 1 ea TRDERM Q72H [facility] Last Admin: 04/05/18 07:42 Dose: 1 ea Morphine Sulfate (Morphine) 2 mg SUBCUT Q4H PRN PRN Reason: PAIN Last Admin: 02/14/18 14:43 Dose: 2 mg Seroquel 400mg (Tablets) 1 each PO BEDTIME [facility] Last Admin: 04/04/18 19:46 Dose: 1 each Non-Formulary Medication (Metronidazole [Metronidazole 0.75% Cream]) 1 applic TOP DAILY [facility] Last Admin: 04/05/18 07:42 Dose: 1 applic Quetiapine Fumarate (Seroquel) 50 mg PO BEDTIME [facility] Last Admin: 04/04/18 19:47 Dose: 50 mg Quetiapine Fumarate (Seroquel) 200 mg PO DAILY@0800,1200 [facility] Last Admin: 04/05/18 07:42 Dose: 200 mg Quetiapine Fumarate (Seroquel) 50 mg PO DAILY@0800,1200 [facility] Last Admin: 04/05/18 07:42 Dose: 50 mg Scopolamine (Transderm-Scop) 1.5 mg TOP Q72H PRN PRN Reason: SECRETIONS Last Admin: 03/22/18 01:07 Dose: 1.5 mg Senna/Docusate Sodium (Senna Plus) 1 tab PO BID@0800,1700 [facility] Last Admin: 04/05/18 07:42 Dose: 1 tab Discontinued Medications Acetaminophen (Tylenol) 650 mg PO BID [facility] Last Admin: 10/19/17 07:20 Dose: 650 mg Ciprofloxacin (Ciprofloxacin Hcl) 250 mg PO BID [facility] Stop: 12/04/17 20:01 Last Admin: 12/04/17 20:30 Dose: Not Given Ciprofloxacin (Ciprofloxacin Hcl) 500 mg PO BID [facility] Stop: 03/08/18 23:59 Last Admin: 03/08/18 19:33 Dose: 500 mg Fentanyl (Duragesic) 25 mcg TRDERM Q72H [facility] Last Admin: 12/01/17 08:00 Dose: 25 mcg Fentanyl (Duragesic) 12 mcg TRDERM Q72H [facility] Last Admin: 12/01/17 08:00 Dose: 12 mcg Fentanyl (Duragesic) 12 mcg TRDERM Q72H [facility] Last Admin: 12/03/17 20:20 Dose: Not Given Fentanyl (Duragesic) 25 mcg TRDERM ONETIME ONE Stop: 12/02/17 18:31 Last Admin: 12/02/17 18:37 Dose: 25 mcg Fentanyl (Duragesic) 50 mcg TRDERM Q72H [facility] Last Admin: 12/04/17 11:45 Dose: Not Given Fentanyl (Duragesic) 50 mcg TRDERM Q72H [facility] Last Admin: 12/16/17 09:19 Dose: 50 mcg Fentanyl (Duragesic) 50 mcg TRDERM Q72H [facility] Last Admin: 01/18/18 12:25 Dose: 50 mcg Fentanyl (Duragesic) 50 mcg TRDERM Q72H [facility] Last Admin: 02/13/18 09:00 Dose: 50 mcg Fentanyl (Duragesic) 75 mcg TRDERM Q72H [facility] Last Admin: 02/15/18 11:03 Dose: Not Given Fentanyl (Duragesic) 25 mcg TRDERM Q72H [facility] Last Admin: 03/09/18 10:10 Dose: 25 mcg Fentanyl (Duragesic) 50 mcg TRDERM Q72H [facility] Last Admin: 02/16/18 09:19 Dose: Not Given Fentanyl (Duragesic) 50 mcg TRDERM Q72H [facility] Last Admin: 03/09/18 10:10 Dose: 50 mcg Lactated Ringer's (Ringers, Lactated) 1,000 mls @ 75 mls/hr IV ASDIRECTED [facility] Lorazepam (Ativan) Confirm Administered Dose 2 mg .ROUTE .STK-MED ONE Stop: 10/10/17 19:54 Last Admin: 10/10/17 20:02 Dose: 2 mg Lorazepam (Ativan) 1 mg IM Q4H PRN PRN Reason: Agitation Last Admin: 01/07/18 19:07 Dose: 1 mg Magnesium Hydroxide (Milk Of Magnesia) Confirm Administered Dose 30 ml .ROUTE .STK-MED ONE Stop: 12/09/17 15:52 Last Admin: 12/09/17 15:59 Dose: 30 ml Magnesium Hydroxide (Milk Of Magnesia) Confirm Administered Dose 30 ml .ROUTE .STK-MED ONE Stop: 12/17/17 10:02 Last Admin: 12/17/17 10:11 Dose: 30 ml Magnesium Hydroxide (Milk Of Magnesia) 30 ml PO BEDTIME [facility] Last Admin: 12/20/17 00:06 Dose: Not Given Magnesium Hydroxide (Milk Of Magnesia) 30 ml PO DAILY@0800 [facility] Last Admin: 12/20/17 10:13 Dose: 30 ml Miscellaneous Information (Remove Patch) 1 ea TRDERM Q72H [facility] Last Admin: 12/01/17 08:00 Dose: 1 ea Miscellaneous Information (Remove Patch) 1 ea TRDERM Q72H [facility] Last Admin: 01/21/18 08:45 Dose: Not Given Miscellaneous Information (Remove Patch) 1 ea TRDERM Q72H [facility] Last Admin: 03/09/18 10:08 Dose: Not Given Senna (Senna) 8.6 mg PO BID@0800,1700 [facility] Last Admin: 12/18/17 08:51 Dose: 8.6 mg Senna/Docusate Sodium (Senna Plus) 1 tab PO BID@0800,1700 [facility] Last Admin: 12/08/17 07:19 Dose: 1 tab Senna/Docusate Sodium (Senna Plus) 1 tab PO BID [facility] Sodium Biphosphate/Sodium Phosphate (Fleet Enema) 133 ml RECTAL ONETIME ONE Stop: 12/09/17 15:59 Last Admin: 12/09/17 16:25 Dose: 1 bottle - Exam General: Cooperative HEENT: Pupils Equal, Pupils Reactive, EOMI Lungs: Clear to Auscultation, Normal Respiratory Effort Cardiovascular: Regular Rate, Regular Rhythm GI/Abdominal Exam: Normal Bowel Sounds Extremities: Normal Inspection Skin: Warm, Dry, Other (decubitus ulcerations) Neurological: No New Focal Deficit Psy/Mental Status: Normal Affect, Normal Mood - Problem List & Annotations (1) Comfort measures only status SNOMED Code(s): 33871414845311 Code(s): Z51.5 - ENCOUNTER FOR PALLIATIVE CARE Status: Chronic Priority: High Current Visit: Yes (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 Code(s): F03.91 - UNSPECIFIED DEMENTIA WITH BEHAVIORAL DISTURBANCE Status: Chronic Priority: High Current Visit: Yes Qualifiers: Dementia behavioral disturbance: with behavioral disturbance Qualified Code (s): F02.81 - Dementia in other diseases classified elsewhere with behavioral disturbance (3) Diabetes mellitus SNOMED Code(s): 09517688 Code(s): E11.9 - TYPE 2 DIABETES MELLITUS WITHOUT COMPLICATIONS Status: Chronic Priority: Medium Current Visit: Yes Qualifiers: Diabetes mellitus type: type 2 Diabetes mellitus fpc insulin use: without 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 terminal operator use Diabetes mellitus complication status: with hyperglycemia Qualified Code(s): E11.65 - Type 2 diabetes mellitus with hyperglycemia (4) Incontinence overflow, urine SNOMED Code(s): 068800037 Code(s): N39.490 - OVERFLOW INCONTINENCE Status: Chronic Priority: Medium Current Visit: Yes (5) Neurogenic bladder SNOMED Code(s): 737811238 Code(s): N31.9 - NEUROMUSCULAR DYSFUNCTION OF BLADDER, UNSPECIFIED Status: Chronic Priority: Medium Current Visit: Yes (6) Palliative care patient SNOMED Code(s): 012963110 Code(s): Z51.5 - ENCOUNTER FOR PALLIATIVE CARE Status: Chronic Priority: High Current Visit: Yes (7) Paranoid schizophrenia, chronic condition SNOMED Code(s): 49522101 Code(s): F20.0 - PARANOID SCHIZOPHRENIA Status: Chronic Priority: High Current Visit: Yes - Problem List Review Problem List Initiated/Reviewed/Updated: Yes - Plan Plan:: Patient to continue current diet and management. No changes to supportive care. We will also continue to monitor for any bed sores. Patient resting well and is very stable. 11/09/17 No changes to status at this time. Patient is resting comfortably. He does eat with help from nursing staff. 12/17/17 Patient stable and continues on comfort cares. No changes to medications or status. Continue current diet and monitoring. 01/04/18 No changes to care of patient. We will continue comfort cares with current diet. 01/11/18 Patient continues with comfort cares and is eating routinely with certain nurses. 01/19/18 No changes at this time. We will continue current cares and comfort cares. 01/25/18 We will continue comfort cares. Continue feeding as routine and oral cares. Continue to monitor bed sores and continue turning. 02/04/18 Patient is not as responsive. We will continue feeding as tolerated if alert and continue current cares and pain management. Patient does appear much weaker and thinner. 02/16/18 Patient is stable and we have increase pain management due to increased signs of agitation and grimacing with movement during bed turning and hygiene. 03/01/18 Patient is stable with no current medication changes. We have added temporary Cipro for 5 days to treat 2 different bacteria. All 4 cultured are sensitive to Cipro. (his urine was cloudy and patient exhibited symptoms of confusion prior to obtaining UA and culture) 03/09/18 No changes to medications. We will continue to monitor pain and decubitus ulceration. Continue comfort cares and adjustment as needed. Nursing to maintain feeding as tolerated. [employer] consult as needed. 04/05/18 Patient continues to be stable and maintained with feedings and wound care, bed turning and vital checks per shift and routine prn checks.
[2018-04-05] MEDS: SEROQUEL 400 MG PO SCH (19:40)
[2018-04-05] MEDS: LORazepam 0.5 MG Tab PO PRN (19:40)
[2018-04-06] MEDS: Acetaminophen/HYDROcodone 325-5 MG Tab PO PRN ×2 (08:00→20:15)
[2018-04-06] MEDS: SENNOSIDES PO SCH ×2 (08:13→17:00)
[2018-04-06] MEDS: Acetaminophen 650 MG Tab.ER PO SCH ×2 (08:13→20:15)
[2018-04-06] MEDS: DOCUSATE PO SCH ×2 (08:13→17:00)
[2018-04-06] MEDS: Non-Formulary Medication 1 Each (Metronidazole [Metronidazole 0.75% Cream] 1 APPLIC) TOP SCH (08:13)
[2018-04-06] MEDS: Magnesium Hydroxide 400 MG/5 ML Susp 30 ML Cup PO SCH (08:13)
[2018-04-06] MEDS: Citalopram 20 MG Tab PO SCH (08:13)
[2018-04-06] MEDS: LORazepam 0.5 MG Tab PO PRN (20:15)
[2018-04-06] MEDS: SEROQUEL 400 MG PO SCH (20:15)
[2018-04-07] MEDS: Citalopram 20 MG Tab PO SCH (09:11)
[2018-04-07] MEDS: DOCUSATE PO SCH ×2 (09:12→17:00)
[2018-04-07] MEDS: SENNOSIDES PO SCH ×2 (09:12→17:00)
[2018-04-07] MEDS: Acetaminophen 650 MG Tab.ER PO SCH ×2 (09:13→19:44)
[2018-04-07] MEDS: Non-Formulary Medication 1 Each (Metronidazole [Metronidazole 0.75% Cream] 1 APPLIC) TOP SCH (09:13)
[2018-04-07] MEDS: Acetaminophen/HYDROcodone 325-5 MG Tab PO PRN (11:30)
[2018-04-07] MEDS: Magnesium Hydroxide 400 MG/5 ML Susp 30 ML Cup PO SCH (16:29)
[2018-04-07] MEDS: SEROQUEL 400 MG PO SCH (19:44)
[2018-04-08] MEDS: Citalopram 20 MG Tab PO SCH (09:03)
[2018-04-08] MEDS: Magnesium Hydroxide 400 MG/5 ML Susp 30 ML Cup PO SCH (09:03)
[2018-04-08] MEDS: Acetaminophen 650 MG Tab.ER PO SCH ×2 (09:03→20:54)
[2018-04-08] MEDS: DOCUSATE PO SCH ×2 (09:03→19:29)
[2018-04-08] MEDS: SENNOSIDES PO SCH ×2 (09:03→19:29)
[2018-04-08] MEDS: FENTANYL 75 MCG TRDERM SCH (09:25)
[2018-04-08] MEDS: Non-Formulary Medication 1 Each (Metronidazole [Metronidazole 0.75% Cream] 1 APPLIC) TOP SCH (09:25)
[2018-04-08] MEDS: Acetaminophen/HYDROcodone 325-5 MG Tab PO PRN (20:53)
[2018-04-08] MEDS: SEROQUEL 400 MG PO SCH (20:53)
[2018-04-09] MEDS: Non-Formulary Medication 1 Each (Metronidazole [Metronidazole 0.75% Cream] 1 APPLIC) TOP SCH (10:00)
[2018-04-09] MEDS: DOCUSATE PO SCH ×2 (10:00→18:08)
[2018-04-09] MEDS: Magnesium Hydroxide 400 MG/5 ML Susp 30 ML Cup PO SCH (10:00)
[2018-04-09] MEDS: Citalopram 20 MG Tab PO SCH (10:00)
[2018-04-09] MEDS: SENNOSIDES PO SCH ×2 (10:00→18:08)
[2018-04-09] MEDS: Acetaminophen 650 MG Tab.ER PO SCH ×2 (10:00→22:04)
[2018-04-09] MEDS: Acetaminophen/HYDROcodone 325-5 MG Tab PO PRN ×2 (10:00→22:05)
[2018-04-09] MEDS: LORazepam 0.5 MG Tab PO PRN (22:04)
[2018-04-09] MEDS: SEROQUEL 400 MG PO SCH (22:04)
[2018-04-10] MEDS: Citalopram 20 MG Tab PO SCH (08:21)
[2018-04-10] MEDS: Non-Formulary Medication 1 Each (Metronidazole [Metronidazole 0.75% Cream] 1 APPLIC) TOP SCH (08:22)
[2018-04-10] MEDS: DOCUSATE PO SCH ×2 (08:23→17:49)
[2018-04-10] MEDS: SENNOSIDES PO SCH ×2 (08:23→17:49)
[2018-04-10] MEDS: Acetaminophen 650 MG Tab.ER PO SCH ×2 (08:25→19:29)
[2018-04-10] MEDS: Acetaminophen/HYDROcodone 325-5 MG Tab PO PRN (08:25)
[2018-04-10] MEDS: LORazepam 0.5 MG Tab PO PRN (08:26)
[2018-04-10] MEDS: Scopolamine 1.5 MG Transdermal Patch TOP PRN (09:26)
[2018-04-10] MEDS: Magnesium Hydroxide 400 MG/5 ML Susp 30 ML Cup PO SCH (11:23)
[2018-04-10] MEDS: SEROQUEL 400 MG PO SCH (19:29)
[2018-04-11] MEDS: DOCUSATE PO SCH ×2 (08:45→17:00)
[2018-04-11] MEDS: Acetaminophen 650 MG Tab.ER PO SCH ×2 (08:45→20:26)
[2018-04-11] MEDS: Citalopram 20 MG Tab PO SCH (08:45)
[2018-04-11] MEDS: SENNOSIDES PO SCH ×2 (08:45→17:00)
[2018-04-11] MEDS: Magnesium Hydroxide 400 MG/5 ML Susp 30 ML Cup PO SCH (09:00)
[2018-04-11] MEDS: Non-Formulary Medication 1 Each (Metronidazole [Metronidazole 0.75% Cream] 1 APPLIC) TOP SCH (09:00)
[2018-04-11] MEDS: FENTANYL 75 MCG TRDERM SCH (09:31)
[2018-04-11] MEDS: Scopolamine 1.5 MG Transdermal Patch TOP PRN (12:21)
[2018-04-11] MEDS: Acetaminophen/HYDROcodone 325-5 MG Tab PO PRN (20:25)
[2018-04-11] MEDS: SEROQUEL 400 MG PO SCH (20:26)
[2018-04-11] MEDS: Albuterol 0.083% 2.5 MG/3 ML Neb Soln NEB PRN (23:06)
[2018-04-12] MEDS: Morphine 2 MG/ML Syringe SUBCUT PRN (06:21)
[2018-04-12] MEDS: Albuterol 0.083% 2.5 MG/3 ML Neb Soln NEB PRN ×2 (06:21→15:00)
[2018-04-12] MEDS: Acetaminophen/HYDROcodone 325-5 MG Tab PO PRN ×3 (08:00→20:00)
[2018-04-12] MEDS: SENNOSIDES PO SCH ×2 (08:00→17:26)
[2018-04-12] MEDS: Acetaminophen 650 MG Tab.ER PO SCH ×2 (08:00→19:59)
[2018-04-12] MEDS: Magnesium Hydroxide 400 MG/5 ML Susp 30 ML Cup PO SCH (08:00)
[2018-04-12] MEDS: DOCUSATE PO SCH ×2 (08:00→17:26)
[2018-04-12] MEDS: Non-Formulary Medication 1 Each (Metronidazole [Metronidazole 0.75% Cream] 1 APPLIC) TOP SCH (08:00)
[2018-04-12] MEDS: Citalopram 20 MG Tab PO SCH (09:03)
--- NOTE | 2018-04-12 10:18 | PCM.PN ---
- General Info Date of Service: 04/12/18 Subjective Update: Patient resting comfortably and arousable. Patient is non-verbal but will still let nurses know of some concerns at times. His verbal use is very infrequent and sporadic. Functional Status: Reports: Pain Controlled, Tolerating Diet - Review of Systems General: Reports: Weakness HEENT: Reports: No Symptoms Pulmonary: Reports: No Symptoms Cardiovascular: Reports: No Symptoms Gastrointestinal: Reports: No Symptoms Neurological: Reports: Confusion, Weakness - Patient Data Vitals - Most Recent: Last Vital Signs Temp 37.0 C 04/11/18 09:50 Pulse 91 04/11/18 09:50 Resp 17 04/11/18 09:50 BP 130/52 L 04/11/18 09:50 Pulse Ox 92 L 04/11/18 09:50 Weight - Most Recent: 58.241 kg Med Orders - Current: Current Medications Acetaminophen (Tylenol Arthritis Pain) 650 mg PO BID [facility] Last Admin: 04/12/18 08:00 Dose: 650 mg Hydrocodone Bitart/Acetaminophen ([place] 325-5 Mg) 1 tab PO Q4H PRN PRN Reason: MODERATE PAIN Last Admin: 04/12/18 08:00 Dose: 1 tab Albuterol (Proventil Neb Soln) 2.5 mg NEB Q4H PRN PRN Reason: Shortness of Breath Last Admin: 04/12/18 06:21 Dose: 2.5 mg Bisacodyl (Dulcolax) 10 mg RECTAL DAILY PRN PRN Reason: CONSTIPATION Last Admin: 04/03/18 09:42 Dose: 10 mg Citalopram Hydrobromide (Celexa) 20 mg PO DAILY [facility] Last Admin: 04/12/18 09:03 Dose: 20 mg Fentanyl (Duragesic) 75 mcg TRDERM Q72H [facility] Last Admin: 04/11/18 09:31 Dose: 75 mcg Loperamide HCl (Imodium) 2 mg PO Q4H PRN PRN Reason: DIARRHEA Lorazepam (Ativan) 0.5 mg PO Q8H PRN PRN Reason: ANXIETY Last Admin: 04/10/18 08:26 Dose: 0.5 mg Magnesium Hydroxide (Milk Of Magnesia) 30 ml PO DAILY [facility] Last Admin: 04/12/18 08:00 Dose: 30 ml Miscellaneous Information (Remove Patch) 1 ea TRDERM Q72H [facility] Last Admin: 04/11/18 09:30 Dose: Not Given Morphine Sulfate (Morphine) 2 mg SUBCUT Q4H PRN PRN Reason: PAIN Last Admin: 04/12/18 06:21 Dose: 2 mg Seroquel 400mg (Tablets) 1 each PO BEDTIME [facility] Last Admin: 04/11/18 20:26 Dose: 1 each Non-Formulary Medication (Metronidazole [Metronidazole 0.75% Cream]) 1 applic TOP DAILY [facility] Last Admin: 04/12/18 08:00 Dose: 1 applic Quetiapine Fumarate (Seroquel) 50 mg PO BEDTIME [facility] Last Admin: 04/11/18 20:25 Dose: 50 mg Quetiapine Fumarate (Seroquel) 200 mg PO DAILY@0800,1200 [facility] Last Admin: 04/12/18 08:00 Dose: 200 mg Quetiapine Fumarate (Seroquel) 50 mg PO DAILY@0800,1200 [facility] Last Admin: 04/12/18 08:00 Dose: 50 mg Scopolamine (Transderm-Scop) 1.5 mg TOP Q72H PRN PRN Reason: SECRETIONS Last Admin: 04/11/18 12:21 Dose: 1.5 mg Senna/Docusate Sodium (Senna Plus) 1 tab PO BID@0800,1700 [facility] Last Admin: 04/12/18 08:00 Dose: 1 tab Discontinued Medications Acetaminophen (Tylenol) 650 mg PO BID [facility] Last Admin: 10/19/17 07:20 Dose: 650 mg Ciprofloxacin (Ciprofloxacin Hcl) 250 mg PO BID [facility] Stop: 12/04/17 20:01 Last Admin: 12/04/17 20:30 Dose: Not Given Ciprofloxacin (Ciprofloxacin Hcl) 500 mg PO BID [facility] Stop: 03/08/18 23:59 Last Admin: 03/08/18 19:33 Dose: 500 mg Fentanyl (Duragesic) 25 mcg TRDERM Q72H [facility] Last Admin: 12/01/17 08:00 Dose: 25 mcg Fentanyl (Duragesic) 12 mcg TRDERM Q72H [facility] Last Admin: 12/01/17 08:00 Dose: 12 mcg Fentanyl (Duragesic) 12 mcg TRDERM Q72H [facility] Last Admin: 12/03/17 20:20 Dose: Not Given Fentanyl (Duragesic) 25 mcg TRDERM ONETIME ONE Stop: 12/02/17 18:31 Last Admin: 12/02/17 18:37 Dose: 25 mcg Fentanyl (Duragesic) 50 mcg TRDERM Q72H [facility] Last Admin: 12/04/17 11:45 Dose: Not Given Fentanyl (Duragesic) 50 mcg TRDERM Q72H [facility] Last Admin: 12/16/17 09:19 Dose: 50 mcg Fentanyl (Duragesic) 50 mcg TRDERM Q72H [facility] Last Admin: 01/18/18 12:25 Dose: 50 mcg Fentanyl (Duragesic) 50 mcg TRDERM Q72H [facility] Last Admin: 02/13/18 09:00 Dose: 50 mcg Fentanyl (Duragesic) 75 mcg TRDERM Q72H [facility] Last Admin: 02/15/18 11:03 Dose: Not Given Fentanyl (Duragesic) 25 mcg TRDERM Q72H [facility] Last Admin: 03/09/18 10:10 Dose: 25 mcg Fentanyl (Duragesic) 50 mcg TRDERM Q72H [facility] Last Admin: 02/16/18 09:19 Dose: Not Given Fentanyl (Duragesic) 50 mcg TRDERM Q72H [facility] Last Admin: 03/09/18 10:10 Dose: 50 mcg Lactated Ringer's (Ringers, Lactated) 1,000 mls @ 75 mls/hr IV ASDIRECTED [facility] Lorazepam (Ativan) Confirm Administered Dose 2 mg .ROUTE .STK-MED ONE Stop: 10/10/17 19:54 Last Admin: 10/10/17 20:02 Dose: 2 mg Lorazepam (Ativan) 1 mg IM Q4H PRN PRN Reason: Agitation Last Admin: 01/07/18 19:07 Dose: 1 mg Magnesium Hydroxide (Milk Of Magnesia) Confirm Administered Dose 30 ml .ROUTE .STK-MED ONE Stop: 12/09/17 15:52 Last Admin: 12/09/17 15:59 Dose: 30 ml Magnesium Hydroxide (Milk Of Magnesia) Confirm Administered Dose 30 ml .ROUTE .STK-MED ONE Stop: 12/17/17 10:02 Last Admin: 12/17/17 10:11 Dose: 30 ml Magnesium Hydroxide (Milk Of Magnesia) 30 ml PO BEDTIME [facility] Last Admin: 12/20/17 00:06 Dose: Not Given Magnesium Hydroxide (Milk Of Magnesia) 30 ml PO DAILY@0800 [facility] Last Admin: 12/20/17 10:13 Dose: 30 ml Miscellaneous Information (Remove Patch) 1 ea TRDERM Q72H [facility] Last Admin: 12/01/17 08:00 Dose: 1 ea Miscellaneous Information (Remove Patch) 1 ea TRDERM Q72H [facility] Last Admin: 01/21/18 08:45 Dose: Not Given Miscellaneous Information (Remove Patch) 1 ea TRDERM Q72H [facility] Last Admin: 03/09/18 10:08 Dose: Not Given Senna (Senna) 8.6 mg PO BID@0800,1700 [facility] Last Admin: 12/18/17 08:51 Dose: 8.6 mg Senna/Docusate Sodium (Senna Plus) 1 tab PO BID@0800,1700 [facility] Last Admin: 12/08/17 07:19 Dose: 1 tab Senna/Docusate Sodium (Senna Plus) 1 tab PO BID [facility] Sodium Biphosphate/Sodium Phosphate (Fleet Enema) 133 ml RECTAL ONETIME ONE Stop: 12/09/17 15:59 Last Admin: 12/09/17 16:25 Dose: 1 bottle - Exam General: No Acute Distress HEENT: Pupils Equal, Pupils Reactive Lungs: Clear to Auscultation, Normal Respiratory Effort Cardiovascular: Regular Rate, Regular Rhythm GI/Abdominal Exam: Normal Bowel Sounds Extremities: Other (thinning of extremities) - Problem List & Annotations (1) Comfort measures only status SNOMED Code(s): 50252213553192 Code(s): Z51.5 - ENCOUNTER FOR PALLIATIVE CARE Status: Chronic Priority: High Current Visit: Yes (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 Code(s): F03.91 - UNSPECIFIED DEMENTIA WITH BEHAVIORAL DISTURBANCE Status: Chronic Priority: High Current Visit: Yes Qualifiers: Dementia behavioral disturbance: with behavioral disturbance Qualified Code (s): F02.81 - Dementia in other diseases classified elsewhere with behavioral disturbance (3) Diabetes mellitus SNOMED Code(s): 13905354 Code(s): E11.9 - TYPE 2 DIABETES MELLITUS WITHOUT COMPLICATIONS Status: Chronic Priority: Medium Current Visit: Yes Qualifiers: Diabetes mellitus type: type 2 Diabetes mellitus fpc insulin use: without dedicated intermodal truck 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 use Diabetes mellitus complication status: with hyperglycemia Qualified Code(s): E11.65 - Type 2 diabetes mellitus with hyperglycemia (4) Incontinence overflow, urine SNOMED Code(s): 208254768 Code(s): N39.490 - OVERFLOW INCONTINENCE Status: Chronic Priority: Medium Current Visit: Yes (5) Neurogenic bladder SNOMED Code(s): 267055189 Code(s): N31.9 - NEUROMUSCULAR DYSFUNCTION OF BLADDER, UNSPECIFIED Status: Chronic Priority: Medium Current Visit: Yes (6) Palliative care patient SNOMED Code(s): 396566075 Code(s): Z51.5 - ENCOUNTER FOR PALLIATIVE CARE Status: Chronic Priority: High Current Visit: Yes (7) Paranoid schizophrenia, chronic condition SNOMED Code(s): 45259702 Code(s): F20.0 - PARANOID SCHIZOPHRENIA Status: Chronic Priority: High Current Visit: Yes - Problem List Review Problem List Initiated/Reviewed/Updated: Yes - Plan Plan:: Patient to continue current diet and management. No changes to supportive care. We will also continue to monitor for any bed sores. Patient resting well and is very stable. 11/09/17 No changes to status at this time. Patient is resting comfortably. He does eat with help from nursing staff. 12/17/17 Patient stable and continues on comfort cares. No changes to medications or status. Continue current diet and monitoring. 01/04/18 No changes to care of patient. We will continue comfort cares with current diet. 01/11/18 Patient continues with comfort cares and is eating routinely with certain nurses. 01/19/18 No changes at this time. We will continue current cares and comfort cares. 01/25/18 We will continue comfort cares. Continue feeding as routine and oral cares. Continue to monitor bed sores and continue turning. 02/04/18 Patient is not as responsive. We will continue feeding as tolerated if alert and continue current cares and pain management. Patient does appear much weaker and thinner. 02/16/18 Patient is stable and we have increase pain management due to increased signs of agitation and grimacing with movement during bed turning and hygiene. 03/01/18 Patient is stable with no current medication changes. We have added temporary Cipro for 5 days to treat 2 different bacteria. All 4 cultured are sensitive to Cipro. (his urine was cloudy and patient exhibited symptoms of confusion prior to obtaining UA and culture) 03/09/18 No changes to medications. We will continue to monitor pain and decubitus ulceration. Continue comfort cares and adjustment as needed. Nursing to maintain feeding as tolerated. [employer] consult as needed. 04/05/18 Patient continues to be stable and maintained with feedings and wound care, bed turning and vital checks per shift and routine prn checks. 04/12/18 Continue with palliative care. We will continue feeding as tolerated. Continue current bed care and very frequent moving. No other changes to be done at this time.
[2018-04-12] MEDS: SEROQUEL 400 MG PO SCH (20:00)
[2018-04-13] MEDS: Acetaminophen/HYDROcodone 325-5 MG Tab PO PRN ×2 (01:15→06:05)
[2018-04-13] MEDS: Albuterol 0.083% 2.5 MG/3 ML Neb Soln NEB PRN (06:13)
[2018-04-13] MEDS: Acetaminophen 650 MG Tab.ER PO SCH ×2 (07:47→20:21)
[2018-04-13] MEDS: SENNOSIDES PO SCH ×2 (07:47→20:21)
[2018-04-13] MEDS: DOCUSATE PO SCH ×2 (07:47→20:21)
[2018-04-13] MEDS: Non-Formulary Medication 1 Each (Metronidazole [Metronidazole 0.75% Cream] 1 APPLIC) TOP SCH (07:48)
[2018-04-13] MEDS: Citalopram 20 MG Tab PO SCH (07:48)
[2018-04-13] MEDS: Magnesium Hydroxide 400 MG/5 ML Susp 30 ML Cup PO SCH (07:50)
--- NOTE | 2018-04-13 09:36 | PCM.SN ---
- Free Text/Narrative Note: Patient alert when aroused. He has been eating and there is concern of aspiration and possible pneumonia. Patient is comfort care and he does appear comfortable but per nursing he has had increased agitation the past few days. Lung sounds show some crackles b/l lower lobes, heart sounds good. Skin intact. We will increase fentanyl patch minimally for increasing discomfort from 75 to 87mcg. Discussed with nursing regarding fever and we will continue tylenol as needed for management. There has been some deterioration of this patient and we will continue current comfort cares and support.
[2018-04-13] MEDS: SEROQUEL 400 MG PO SCH (20:20)
[2018-04-14] MEDS: Citalopram 20 MG Tab PO SCH (07:38)
[2018-04-14] MEDS: DOCUSATE PO SCH ×2 (07:39→19:33)
[2018-04-14] MEDS: Acetaminophen 650 MG Tab.ER PO SCH ×2 (07:39→19:33)
[2018-04-14] MEDS: SENNOSIDES PO SCH ×2 (07:39→19:33)
[2018-04-14] MEDS: Non-Formulary Medication 1 Each (Metronidazole [Metronidazole 0.75% Cream] 1 APPLIC) TOP SCH (07:40)
[2018-04-14] MEDS: Magnesium Hydroxide 400 MG/5 ML Susp 30 ML Cup PO SCH (07:40)
[2018-04-14] MEDS: FENTANYL 75 MCG TRDERM SCH (07:44)
[2018-04-14] MEDS: FENTANYL 12 MCG/HR TRDERM SCH (07:47)
[2018-04-14] MEDS ORDERED: FENTANYL 12 MCG/HR TRDERM SCH (08:00)
[2018-04-14] MEDS: Bisacodyl 10 MG Supp RECTAL PRN (10:00)
[2018-04-14] MEDS: Scopolamine 1.5 MG Transdermal Patch TOP PRN (10:30)
[2018-04-14] MEDS: SEROQUEL 400 MG PO SCH (19:33)
[2018-04-15] MEDS: Citalopram 20 MG Tab PO SCH ×2 (06:08→10:42)
[2018-04-15] MEDS: Magnesium Hydroxide 400 MG/5 ML Susp 30 ML Cup PO SCH ×2 (06:08→10:42)
[2018-04-15] MEDS: DOCUSATE PO SCH ×3 (06:08→17:00)
[2018-04-15] MEDS: SENNOSIDES PO SCH ×3 (06:08→17:00)
[2018-04-15] MEDS: Non-Formulary Medication 1 Each (Metronidazole [Metronidazole 0.75% Cream] 1 APPLIC) TOP SCH ×2 (06:09→10:42)
[2018-04-15] MEDS: Acetaminophen 650 MG Tab.ER PO SCH ×3 (06:09→20:25)
[2018-04-15] MEDS: Acetaminophen/HYDROcodone 325-5 MG Tab PO PRN ×2 (08:00→20:24)
[2018-04-15] MEDS: Albuterol 0.083% 2.5 MG/3 ML Neb Soln NEB PRN (08:40)
[2018-04-15] MEDS: SEROQUEL 400 MG PO SCH (20:23)
[2018-04-16] MEDS: Citalopram 20 MG Tab PO SCH (07:56)
[2018-04-16] MEDS: Non-Formulary Medication 1 Each (Metronidazole [Metronidazole 0.75% Cream] 1 APPLIC) TOP SCH (07:56)
[2018-04-16] MEDS: SENNOSIDES PO SCH ×2 (07:57→17:21)
[2018-04-16] MEDS: DOCUSATE PO SCH ×2 (07:57→17:21)
[2018-04-16] MEDS: Acetaminophen 650 MG Tab.ER PO SCH ×2 (07:57→20:00)
[2018-04-16] MEDS: Magnesium Hydroxide 400 MG/5 ML Susp 30 ML Cup PO SCH (07:57)
[2018-04-16] MEDS: Acetaminophen/HYDROcodone 325-5 MG Tab PO PRN (20:00)
[2018-04-16] MEDS: SEROQUEL 400 MG PO SCH (20:00)
[2018-04-16] MEDS: LORazepam 0.5 MG Tab PO PRN (20:00)
[2018-04-17] MEDS: Citalopram 20 MG Tab PO SCH (07:48)
[2018-04-17] MEDS: Magnesium Hydroxide 400 MG/5 ML Susp 30 ML Cup PO SCH (07:48)
[2018-04-17] MEDS: Acetaminophen/HYDROcodone 325-5 MG Tab PO PRN ×2 (07:48→20:00)
[2018-04-17] MEDS: Non-Formulary Medication 1 Each (Metronidazole [Metronidazole 0.75% Cream] 1 APPLIC) TOP SCH (07:50)
[2018-04-17] MEDS: DOCUSATE PO SCH ×2 (07:51→19:48)
[2018-04-17] MEDS: SENNOSIDES PO SCH ×2 (07:51→19:48)
[2018-04-17] MEDS: Acetaminophen 650 MG Tab.ER PO SCH ×2 (07:51→20:23)
[2018-04-17] MEDS: FENTANYL 12 MCG/HR TRDERM SCH (09:03)
[2018-04-17] MEDS: FENTANYL 75 MCG TRDERM SCH (09:03)
[2018-04-17] MEDS: SEROQUEL 400 MG PO SCH (20:23)
[2018-04-17] MEDS: LORazepam 0.5 MG Tab PO PRN (20:25)
[2018-04-18] MEDS: Citalopram 20 MG Tab PO SCH (07:21)
[2018-04-18] MEDS: Non-Formulary Medication 1 Each (Metronidazole [Metronidazole 0.75% Cream] 1 APPLIC) TOP SCH (07:21)
[2018-04-18] MEDS: Magnesium Hydroxide 400 MG/5 ML Susp 30 ML Cup PO SCH (07:22)
[2018-04-18] MEDS: DOCUSATE PO SCH ×2 (07:22→18:18)
[2018-04-18] MEDS: SENNOSIDES PO SCH ×2 (07:22→18:18)
[2018-04-18] MEDS: Acetaminophen 650 MG Tab.ER PO SCH ×2 (07:23→19:15)
[2018-04-18] MEDS: SEROQUEL 400 MG PO SCH (19:15)
[2018-04-18] MEDS: LORazepam 0.5 MG Tab PO PRN (19:15)
[2018-04-18] MEDS: Acetaminophen/HYDROcodone 325-5 MG Tab PO PRN (19:15)
[2018-04-19] MEDS: SENNOSIDES PO SCH ×2 (09:59→17:39)
[2018-04-19] MEDS: Magnesium Hydroxide 400 MG/5 ML Susp 30 ML Cup PO SCH (09:59)
[2018-04-19] MEDS: DOCUSATE PO SCH ×2 (09:59→17:39)
[2018-04-19] MEDS: Non-Formulary Medication 1 Each (Metronidazole [Metronidazole 0.75% Cream] 1 APPLIC) TOP SCH (09:59)
[2018-04-19] MEDS: Citalopram 20 MG Tab PO SCH (09:59)
[2018-04-19] MEDS: Acetaminophen 650 MG Tab.ER PO SCH ×2 (10:00→19:21)
--- NOTE | 2018-04-19 17:18 | PCM.PN ---
- General Info Date of Service: 04/19/18 Subjective Update: Patient has improved symptoms and fever has resolved. He is no longer having increased work of breathing and resting comfortably and alert when aroused. - Review of Systems General: Reports: Weakness, Other (unable to obatin ROS as patient does not respond by communicating, he will look at you and at times say a word when he chooses) HEENT: Reports: No Symptoms Pulmonary: Reports: No Symptoms - Patient Data Vitals - Most Recent: Last Vital Signs Temp 37.0 C 04/11/18 09:50 Pulse 91 04/11/18 09:50 Resp 17 04/11/18 09:50 BP 130/52 L 04/11/18 09:50 Pulse Ox 92 L 04/11/18 09:50 Weight - Most Recent: 58.241 kg I&O - Last 24 Hours: Intake & Output 04/19/18 04/19/18 04/19/18 06:59 14:59 22:59 Intake Total 360 Balance 360 Med Orders - Current: Current Medications Acetaminophen (Tylenol Arthritis Pain) 650 mg PO BID [facility] Last Admin: 04/19/18 10:00 Dose: 650 mg Hydrocodone Bitart/Acetaminophen ([place] 325-5 Mg) 1 tab PO Q4H PRN PRN Reason: MODERATE PAIN Last Admin: 04/18/18 19:15 Dose: 1 tab Albuterol (Proventil Neb Soln) 2.5 mg NEB Q4H PRN PRN Reason: Shortness of Breath Last Admin: 04/15/18 08:40 Dose: 2.5 mg Bisacodyl (Dulcolax) 10 mg RECTAL DAILY PRN PRN Reason: CONSTIPATION Last Admin: 04/14/18 10:00 Dose: 10 mg Citalopram Hydrobromide (Celexa) 20 mg PO DAILY [facility] Last Admin: 04/19/18 09:59 Dose: 20 mg Fentanyl (Duragesic) 75 mcg TRDERM Q72H [facility] Last Admin: 04/17/18 09:03 Dose: 75 mcg Fentanyl (Duragesic) 12 mcg TRDERM Q72H [facility] Last Admin: 04/17/18 09:03 Dose: 12 mcg Loperamide HCl (Imodium) 2 mg PO Q4H PRN PRN Reason: DIARRHEA Lorazepam (Ativan) 0.5 mg PO Q8H PRN PRN Reason: ANXIETY Last Admin: 04/18/18 19:15 Dose: 0.5 mg Magnesium Hydroxide (Milk Of Magnesia) 30 ml PO DAILY [facility] Last Admin: 04/19/18 09:59 Dose: Not Given Miscellaneous Information (Remove Patch) 1 ea TRDERM Q72H [facility] Last Admin: 04/17/18 07:50 Dose: 1 ea Morphine Sulfate (Morphine) 2 mg SUBCUT Q4H PRN PRN Reason: PAIN Last Admin: 04/12/18 06:21 Dose: 2 mg Seroquel 400mg (Tablets) 1 each PO BEDTIME [facility] Last Admin: 04/18/18 19:15 Dose: 1 each Non-Formulary Medication (Metronidazole [Metronidazole 0.75% Cream]) 1 applic TOP DAILY [facility] Last Admin: 04/19/18 09:59 Dose: 1 applic Quetiapine Fumarate (Seroquel) 50 mg PO BEDTIME [facility] Last Admin: 04/18/18 19:15 Dose: 50 mg Quetiapine Fumarate (Seroquel) 200 mg PO DAILY@0800,1200 [facility] Last Admin: 04/19/18 12:14 Dose: 200 mg Quetiapine Fumarate (Seroquel) 50 mg PO DAILY@0800,1200 [facility] Last Admin: 04/19/18 12:14 Dose: 50 mg Scopolamine (Transderm-Scop) 1.5 mg TOP Q72H PRN PRN Reason: SECRETIONS Last Admin: 04/14/18 10:30 Dose: 1.5 mg Senna/Docusate Sodium (Senna Plus) 1 tab PO BID@0800,1700 [facility] Last Admin: 04/19/18 09:59 Dose: 1 tab Discontinued Medications Acetaminophen (Tylenol) 650 mg PO BID [facility] Last Admin: 10/19/17 07:20 Dose: 650 mg Ciprofloxacin (Ciprofloxacin Hcl) 250 mg PO BID [facility] Stop: 12/04/17 20:01 Last Admin: 12/04/17 20:30 Dose: Not Given Ciprofloxacin (Ciprofloxacin Hcl) 500 mg PO BID [facility] Stop: 03/08/18 23:59 Last Admin: 03/08/18 19:33 Dose: 500 mg Fentanyl (Duragesic) 25 mcg TRDERM Q72H [facility] Last Admin: 12/01/17 08:00 Dose: 25 mcg Fentanyl (Duragesic) 12 mcg TRDERM Q72H [facility] Last Admin: 12/01/17 08:00 Dose: 12 mcg Fentanyl (Duragesic) 12 mcg TRDERM Q72H [facility] Last Admin: 12/03/17 20:20 Dose: Not Given Fentanyl (Duragesic) 25 mcg TRDERM ONETIME ONE Stop: 12/02/17 18:31 Last Admin: 12/02/17 18:37 Dose: 25 mcg Fentanyl (Duragesic) 50 mcg TRDERM Q72H [facility] Last Admin: 12/04/17 11:45 Dose: Not Given Fentanyl (Duragesic) 50 mcg TRDERM Q72H [facility] Last Admin: 12/16/17 09:19 Dose: 50 mcg Fentanyl (Duragesic) 50 mcg TRDERM Q72H [facility] Last Admin: 01/18/18 12:25 Dose: 50 mcg Fentanyl (Duragesic) 50 mcg TRDERM Q72H [facility] Last Admin: 02/13/18 09:00 Dose: 50 mcg Fentanyl (Duragesic) 75 mcg TRDERM Q72H [facility] Last Admin: 02/15/18 11:03 Dose: Not Given Fentanyl (Duragesic) 25 mcg TRDERM Q72H [facility] Last Admin: 03/09/18 10:10 Dose: 25 mcg Fentanyl (Duragesic) 50 mcg TRDERM Q72H [facility] Last Admin: 02/16/18 09:19 Dose: Not Given Fentanyl (Duragesic) 50 mcg TRDERM Q72H [facility] Last Admin: 03/09/18 10:10 Dose: 50 mcg Fentanyl (Duragesic) 75 mcg TRDERM Q72H [facility] Last Admin: 04/11/18 09:31 Dose: 75 mcg Fentanyl (Duragesic) 12 mcg TRDERM Q72H [facility] Lactated Ringer's (Ringers, Lactated) 1,000 mls @ 75 mls/hr IV ASDIRECTED [facility] Lorazepam (Ativan) Confirm Administered Dose 2 mg .ROUTE .STK-MED ONE Stop: 10/10/17 19:54 Last Admin: 10/10/17 20:02 Dose: 2 mg Lorazepam (Ativan) 1 mg IM Q4H PRN PRN Reason: Agitation Last Admin: 01/07/18 19:07 Dose: 1 mg Magnesium Hydroxide (Milk Of Magnesia) Confirm Administered Dose 30 ml .ROUTE .STK-MED ONE Stop: 12/09/17 15:52 Last Admin: 12/09/17 15:59 Dose: 30 ml Magnesium Hydroxide (Milk Of Magnesia) Confirm Administered Dose 30 ml .ROUTE .STK-MED ONE Stop: 12/17/17 10:02 Last Admin: 12/17/17 10:11 Dose: 30 ml Magnesium Hydroxide (Milk Of Magnesia) 30 ml PO BEDTIME [facility] Last Admin: 12/20/17 00:06 Dose: Not Given Magnesium Hydroxide (Milk Of Magnesia) 30 ml PO DAILY@0800 [facility] Last Admin: 12/20/17 10:13 Dose: 30 ml Miscellaneous Information (Remove Patch) 1 ea TRDERM Q72H [facility] Last Admin: 12/01/17 08:00 Dose: 1 ea Miscellaneous Information (Remove Patch) 1 ea TRDERM Q72H [facility] Last Admin: 01/21/18 08:45 Dose: Not Given Miscellaneous Information (Remove Patch) 1 ea TRDERM Q72H [facility] Last Admin: 03/09/18 10:08 Dose: Not Given Miscellaneous Information (Remove Patch) 1 ea TRDERM Q72H [facility] Last Admin: 04/11/18 09:30 Dose: Not Given Senna (Senna) 8.6 mg PO BID@0800,1700 [facility] Last Admin: 12/18/17 08:51 Dose: 8.6 mg Senna/Docusate Sodium (Senna Plus) 1 tab PO BID@0800,1700 [facility] Last Admin: 12/08/17 07:19 Dose: 1 tab Senna/Docusate Sodium (Senna Plus) 1 tab PO BID [facility] Sodium Biphosphate/Sodium Phosphate (Fleet Enema) 133 ml RECTAL ONETIME ONE Stop: 12/09/17 15:59 Last Admin: 12/09/17 16:25 Dose: 1 bottle - Exam Quality Assessment: Supplemental Oxygen (prn as needed) HEENT: Pupils Equal, Pupils Reactive Neck: Supple Lungs: Clear to Auscultation, Normal Respiratory Effort Cardiovascular: Regular Rate, Regular Rhythm GI/Abdominal Exam: Normal Bowel Sounds Extremities: Other (thinning legs and arms) - Problem List & Annotations (1) Comfort measures only status SNOMED Code(s): 41855661733599 Code(s): Z51.5 - ENCOUNTER FOR PALLIATIVE CARE Status: Chronic Priority: High Current Visit: Yes (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 Code(s): F03.91 - UNSPECIFIED DEMENTIA WITH BEHAVIORAL DISTURBANCE Status: Chronic Priority: High Current Visit: Yes Qualifiers: Dementia behavioral disturbance: with behavioral disturbance Qualified Code (s): F02.81 - Dementia in other diseases classified elsewhere with behavioral disturbance (3) Diabetes mellitus SNOMED Code(s): 53417384 Code(s): E11.9 - TYPE 2 DIABETES MELLITUS WITHOUT COMPLICATIONS Status: Chronic Priority: Medium Current Visit: Yes Qualifiers: Diabetes mellitus type: type 2 Diabetes mellitus shelter insulin use: without ad terminal makeup operator use Diabetes mellitus complication status: with hyperglycemia Qualified Code(s): E11.65 - Type 2 diabetes mellitus with hyperglycemia (4) Incontinence overflow, urine SNOMED Code(s): 995735147 Code(s): N39.490 - OVERFLOW INCONTINENCE Status: Chronic Priority: Medium Current Visit: Yes (5) Neurogenic bladder SNOMED Code(s): 150723700 Code(s): N31.9 - NEUROMUSCULAR DYSFUNCTION OF BLADDER, UNSPECIFIED Status: Chronic Priority: Medium Current Visit: Yes (6) Palliative care patient SNOMED Code(s): 672504987 Code(s): Z51.5 - ENCOUNTER FOR PALLIATIVE CARE Status: Chronic Priority: High Current Visit: Yes (7) Paranoid schizophrenia, chronic condition SNOMED Code(s): 49179914 Code(s): F20.0 - PARANOID SCHIZOPHRENIA Status: Chronic Priority: High Current Visit: Yes - Problem List Review Problem List Initiated/Reviewed/Updated: Yes - Plan Plan:: Patient to continue current diet and management. No changes to supportive care. We will also continue to monitor for any bed sores. Patient resting well and is very stable. 11/09/17 No changes to status at this time. Patient is resting comfortably. He does eat with help from nursing staff. 12/17/17 Patient stable and continues on comfort cares. No changes to medications or status. Continue current diet and monitoring. 01/04/18 No changes to care of patient. We will continue comfort cares with current diet. 01/11/18 Patient continues with comfort cares and is eating routinely with certain nurses. 01/19/18 No changes at this time. We will continue current cares and comfort cares. 01/25/18 We will continue comfort cares. Continue feeding as routine and oral cares. Continue to monitor bed sores and continue turning. 02/04/18 Patient is not as responsive. We will continue feeding as tolerated if alert and continue current cares and pain management. Patient does appear much weaker and thinner. 02/16/18 Patient is stable and we have increase pain management due to increased signs of agitation and grimacing with movement during bed turning and hygiene. 03/01/18 Patient is stable with no current medication changes. We have added temporary Cipro for 5 days to treat 2 different bacteria. All 4 cultured are sensitive to Cipro. (his urine was cloudy and patient exhibited symptoms of confusion prior to obtaining UA and culture) 03/09/18 No changes to medications. We will continue to monitor pain and decubitus ulceration. Continue comfort cares and adjustment as needed. Nursing to maintain feeding as tolerated. HYDROGRAPHICAL TECHNICAL OFFICER consult as needed. 04/05/18 Patient continues to be stable and maintained with feedings and wound care, bed turning and vital checks per shift and routine prn checks. 04/12/18 Continue with palliative care. We will continue feeding as tolerated. Continue current bed care and very frequent moving. No other changes to be done at this time. 04/19/18 No changes to palliative care. Patient will continue food with 3 meals daily and as needed snacks as tolerated. We will monitor swallowing as needed as we are always concerned of aspiration.
[2018-04-19] MEDS: SEROQUEL 400 MG PO SCH (19:21)
[2018-04-20] MEDS: FENTANYL 12 MCG/HR TRDERM SCH (09:00)
[2018-04-20] MEDS: FENTANYL 75 MCG TRDERM SCH (09:00)
[2018-04-20] MEDS: DOCUSATE PO SCH ×2 (10:30→16:54)
[2018-04-20] MEDS: Magnesium Hydroxide 400 MG/5 ML Susp 30 ML Cup PO SCH (10:30)
[2018-04-20] MEDS: Citalopram 20 MG Tab PO SCH (10:30)
[2018-04-20] MEDS: SENNOSIDES PO SCH ×2 (10:30→16:54)
[2018-04-20] MEDS: Acetaminophen 650 MG Tab.ER PO SCH ×2 (10:30→21:04)
[2018-04-20] MEDS: Non-Formulary Medication 1 Each (Metronidazole [Metronidazole 0.75% Cream] 1 APPLIC) TOP SCH (13:04)
[2018-04-20] MEDS: SEROQUEL 400 MG PO SCH (21:03)
[2018-04-21] MEDS: Citalopram 20 MG Tab PO SCH (08:43)
[2018-04-21] MEDS: Non-Formulary Medication 1 Each (Metronidazole [Metronidazole 0.75% Cream] 1 APPLIC) TOP SCH (08:43)
[2018-04-21] MEDS: Magnesium Hydroxide 400 MG/5 ML Susp 30 ML Cup PO SCH (08:43)
[2018-04-21] MEDS: SENNOSIDES PO SCH ×2 (08:47→13:00)
[2018-04-21] MEDS: DOCUSATE PO SCH ×2 (08:47→13:00)
[2018-04-21] MEDS: Acetaminophen 650 MG Tab.ER PO SCH ×2 (08:47→20:47)
[2018-04-21] MEDS: SEROQUEL 400 MG PO SCH (20:47)
[2018-04-22] MEDS: Citalopram 20 MG Tab PO SCH (07:36)
[2018-04-22] MEDS: DOCUSATE PO SCH ×2 (07:37→17:53)
[2018-04-22] MEDS: Non-Formulary Medication 1 Each (Metronidazole [Metronidazole 0.75% Cream] 1 APPLIC) TOP SCH (07:37)
[2018-04-22] MEDS: Acetaminophen 650 MG Tab.ER PO SCH ×2 (07:37→22:21)
[2018-04-22] MEDS: SENNOSIDES PO SCH ×2 (07:37→17:53)
[2018-04-22] MEDS: Magnesium Hydroxide 400 MG/5 ML Susp 30 ML Cup PO SCH (07:37)
[2018-04-22] MEDS: Acetaminophen/HYDROcodone 325-5 MG Tab PO PRN ×2 (07:56→17:53)
[2018-04-22] MEDS: SEROQUEL 400 MG PO SCH (22:20)
[2018-04-23] MEDS: DOCUSATE PO SCH ×2 (07:18→16:59)
[2018-04-23] MEDS: Acetaminophen 650 MG Tab.ER PO SCH ×3 (07:18→19:13)
[2018-04-23] MEDS: SENNOSIDES PO SCH ×2 (07:18→16:59)
[2018-04-23] MEDS: Citalopram 20 MG Tab PO SCH (07:19)
[2018-04-23] MEDS: Non-Formulary Medication 1 Each (Metronidazole [Metronidazole 0.75% Cream] 1 APPLIC) TOP SCH (07:20)
[2018-04-23] MEDS: FENTANYL 12 MCG/HR TRDERM SCH (07:24)
[2018-04-23] MEDS: FENTANYL 75 MCG TRDERM SCH (07:24)
[2018-04-23] MEDS: Magnesium Hydroxide 400 MG/5 ML Susp 30 ML Cup PO SCH (08:00)
[2018-04-23] MEDS: SEROQUEL 400 MG PO SCH ×2 (17:34→19:13)
[2018-04-24] MEDS: Magnesium Hydroxide 400 MG/5 ML Susp 30 ML Cup PO SCH (08:26)
[2018-04-24] MEDS: Acetaminophen 650 MG Tab.ER PO SCH ×2 (08:27→20:01)
[2018-04-24] MEDS: Citalopram 20 MG Tab PO SCH (08:28)
[2018-04-24] MEDS: DOCUSATE PO SCH ×2 (08:30→17:00)
[2018-04-24] MEDS: SENNOSIDES PO SCH ×2 (08:30→17:00)
[2018-04-24] MEDS: Non-Formulary Medication 1 Each (Metronidazole [Metronidazole 0.75% Cream] 1 APPLIC) TOP SCH (08:43)
[2018-04-24] MEDS: SEROQUEL 400 MG PO SCH (20:01)
[2018-04-24] MEDS: Acetaminophen/HYDROcodone 325-5 MG Tab PO PRN (20:01)
[2018-04-24] MEDS: LORazepam 0.5 MG Tab PO PRN (20:01)
[2018-04-25] MEDS: Citalopram 20 MG Tab PO SCH (07:41)
[2018-04-25] MEDS: Magnesium Hydroxide 400 MG/5 ML Susp 30 ML Cup PO SCH (07:42)
[2018-04-25] MEDS: Non-Formulary Medication 1 Each (Metronidazole [Metronidazole 0.75% Cream] 1 APPLIC) TOP SCH (07:42)
[2018-04-25] MEDS: DOCUSATE PO SCH ×3 (07:43→19:07)
[2018-04-25] MEDS: SENNOSIDES PO SCH ×3 (07:43→19:07)
[2018-04-25] MEDS: Acetaminophen 650 MG Tab.ER PO SCH ×2 (07:43→19:08)
[2018-04-25] MEDS: Acetaminophen/HYDROcodone 325-5 MG Tab PO PRN ×2 (09:24→19:08)
[2018-04-25] MEDS: LORazepam 0.5 MG Tab PO PRN (19:08)
[2018-04-25] MEDS: SEROQUEL 400 MG PO SCH (19:08)
[2018-04-26] MEDS: Acetaminophen/HYDROcodone 325-5 MG Tab PO PRN ×2 (06:27→19:12)
[2018-04-26] MEDS: Magnesium Hydroxide 400 MG/5 ML Susp 30 ML Cup PO SCH (07:56)
[2018-04-26] MEDS: Non-Formulary Medication 1 Each (Metronidazole [Metronidazole 0.75% Cream] 1 APPLIC) TOP SCH (07:56)
[2018-04-26] MEDS: SENNOSIDES PO SCH ×2 (07:56→17:27)
[2018-04-26] MEDS: Citalopram 20 MG Tab PO SCH (07:56)
[2018-04-26] MEDS: DOCUSATE PO SCH ×2 (07:56→17:27)
[2018-04-26] MEDS: Acetaminophen 650 MG Tab.ER PO SCH ×2 (07:56→19:12)
[2018-04-26] MEDS: FENTANYL 12 MCG/HR TRDERM SCH (08:05)
[2018-04-26] MEDS: FENTANYL 75 MCG TRDERM SCH (08:05)
--- NOTE | 2018-04-26 17:08 | PCM.PN ---
- General Info Date of Service: 04/26/18 Subjective Update: Patient remains stable in comfort cares. He continues to eat 1-2 meals a day and occasional snacks. He is arousable but not responding to verbal communication or commands most of the time. He does recognize gestures and will eat accordingly. - Review of Systems General: Reports: Weakness HEENT: Reports: No Symptoms Pulmonary: Reports: Cough, Other (he does have some chest congestion at times) Cardiovascular: Reports: No Symptoms Genitourinary: Reports: No Symptoms Musculoskeletal: Reports: No Symptoms - Patient Data Vitals - Most Recent: Last Vital Signs Temp 37.0 C 04/11/18 09:50 Pulse 91 04/11/18 09:50 Resp 17 04/11/18 09:50 BP 130/52 L 04/11/18 09:50 Pulse Ox 88 L 04/21/18 17:54 Weight - Most Recent: 58.241 kg Med Orders - Current: Current Medications Acetaminophen (Tylenol Arthritis Pain) 650 mg PO BID [facility] Last Admin: 04/26/18 07:56 Dose: 650 mg Hydrocodone Bitart/Acetaminophen ([place] 325-5 Mg) 1 tab PO Q4H PRN PRN Reason: MODERATE PAIN Last Admin: 04/26/18 06:27 Dose: 1 tab Albuterol (Proventil Neb Soln) 2.5 mg NEB Q4H PRN PRN Reason: Shortness of Breath Last Admin: 04/15/18 08:40 Dose: 2.5 mg Bisacodyl (Dulcolax) 10 mg RECTAL DAILY PRN PRN Reason: CONSTIPATION Last Admin: 04/14/18 10:00 Dose: 10 mg Citalopram Hydrobromide (Celexa) 20 mg PO DAILY [facility] Last Admin: 04/26/18 07:56 Dose: 20 mg Fentanyl (Duragesic) 75 mcg TRDERM Q72H [facility] Last Admin: 04/26/18 08:05 Dose: 75 mcg Fentanyl (Duragesic) 12 mcg TRDERM Q72H [facility] Last Admin: 04/26/18 08:05 Dose: 12 mcg Loperamide HCl (Imodium) 2 mg PO Q4H PRN PRN Reason: DIARRHEA Lorazepam (Ativan) 0.5 mg PO Q8H PRN PRN Reason: ANXIETY Last Admin: 04/25/18 19:08 Dose: 0.5 mg Magnesium Hydroxide (Milk Of Magnesia) 30 ml PO DAILY [facility] Last Admin: 04/26/18 07:56 Dose: Not Given Miscellaneous Information (Remove Patch) 1 ea TRDERM Q72H [facility] Last Admin: 04/26/18 07:56 Dose: 1 ea Morphine Sulfate (Morphine) 2 mg SUBCUT Q4H PRN PRN Reason: PAIN Last Admin: 04/12/18 06:21 Dose: 2 mg Seroquel 400mg (Tablets) 1 each PO BEDTIME [facility] Last Admin: 04/25/18 19:08 Dose: 1 each Non-Formulary Medication (Metronidazole [Metronidazole 0.75% Cream]) 1 applic TOP DAILY [facility] Last Admin: 04/26/18 07:56 Dose: 1 applic Quetiapine Fumarate (Seroquel) 50 mg PO BEDTIME [facility] Last Admin: 04/25/18 19:08 Dose: 50 mg Quetiapine Fumarate (Seroquel) 200 mg PO DAILY@0800,1200 [facility] Last Admin: 04/26/18 07:55 Dose: 200 mg Quetiapine Fumarate (Seroquel) 50 mg PO DAILY@0800,1200 [facility] Last Admin: 04/26/18 07:56 Dose: 50 mg Scopolamine (Transderm-Scop) 1.5 mg TOP Q72H PRN PRN Reason: SECRETIONS Last Admin: 04/14/18 10:30 Dose: 1.5 mg Senna/Docusate Sodium (Senna Plus) 1 tab PO BID@0800,1700 [facility] Last Admin: 04/26/18 07:56 Dose: 1 tab Discontinued Medications Acetaminophen (Tylenol) 650 mg PO BID [facility] Last Admin: 10/19/17 07:20 Dose: 650 mg Ciprofloxacin (Ciprofloxacin Hcl) 250 mg PO BID [facility] Stop: 12/04/17 20:01 Last Admin: 12/04/17 20:30 Dose: Not Given Ciprofloxacin (Ciprofloxacin Hcl) 500 mg PO BID [facility] Stop: 03/08/18 23:59 Last Admin: 03/08/18 19:33 Dose: 500 mg Fentanyl (Duragesic) 25 mcg TRDERM Q72H [facility] Last Admin: 12/01/17 08:00 Dose: 25 mcg Fentanyl (Duragesic) 12 mcg TRDERM Q72H [facility] Last Admin: 12/01/17 08:00 Dose: 12 mcg Fentanyl (Duragesic) 12 mcg TRDERM Q72H [facility] Last Admin: 12/03/17 20:20 Dose: Not Given Fentanyl (Duragesic) 25 mcg TRDERM ONETIME ONE Stop: 12/02/17 18:31 Last Admin: 12/02/17 18:37 Dose: 25 mcg Fentanyl (Duragesic) 50 mcg TRDERM Q72H [facility] Last Admin: 12/04/17 11:45 Dose: Not Given Fentanyl (Duragesic) 50 mcg TRDERM Q72H [facility] Last Admin: 12/16/17 09:19 Dose: 50 mcg Fentanyl (Duragesic) 50 mcg TRDERM Q72H [facility] Last Admin: 01/18/18 12:25 Dose: 50 mcg Fentanyl (Duragesic) 50 mcg TRDERM Q72H [facility] Last Admin: 02/13/18 09:00 Dose: 50 mcg Fentanyl (Duragesic) 75 mcg TRDERM Q72H [facility] Last Admin: 02/15/18 11:03 Dose: Not Given Fentanyl (Duragesic) 25 mcg TRDERM Q72H [facility] Last Admin: 03/09/18 10:10 Dose: 25 mcg Fentanyl (Duragesic) 50 mcg TRDERM Q72H [facility] Last Admin: 02/16/18 09:19 Dose: Not Given Fentanyl (Duragesic) 50 mcg TRDERM Q72H [facility] Last Admin: 03/09/18 10:10 Dose: 50 mcg Fentanyl (Duragesic) 75 mcg TRDERM Q72H [facility] Last Admin: 04/11/18 09:31 Dose: 75 mcg Fentanyl (Duragesic) 12 mcg TRDERM Q72H [facility] Lactated Ringer's (Ringers, Lactated) 1,000 mls @ 75 mls/hr IV ASDIRECTED [facility] Lorazepam (Ativan) Confirm Administered Dose 2 mg .ROUTE .STK-MED ONE Stop: 10/10/17 19:54 Last Admin: 10/10/17 20:02 Dose: 2 mg Lorazepam (Ativan) 1 mg IM Q4H PRN PRN Reason: Agitation Last Admin: 01/07/18 19:07 Dose: 1 mg Magnesium Hydroxide (Milk Of Magnesia) Confirm Administered Dose 30 ml .ROUTE .STK-MED ONE Stop: 12/09/17 15:52 Last Admin: 12/09/17 15:59 Dose: 30 ml Magnesium Hydroxide (Milk Of Magnesia) Confirm Administered Dose 30 ml .ROUTE .STK-MED ONE Stop: 12/17/17 10:02 Last Admin: 12/17/17 10:11 Dose: 30 ml Magnesium Hydroxide (Milk Of Magnesia) 30 ml PO BEDTIME [facility] Last Admin: 12/20/17 00:06 Dose: Not Given Magnesium Hydroxide (Milk Of Magnesia) 30 ml PO DAILY@0800 [facility] Last Admin: 12/20/17 10:13 Dose: 30 ml Miscellaneous Information (Remove Patch) 1 ea TRDERM Q72H [facility] Last Admin: 12/01/17 08:00 Dose: 1 ea Miscellaneous Information (Remove Patch) 1 ea TRDERM Q72H [facility] Last Admin: 01/21/18 08:45 Dose: Not Given Miscellaneous Information (Remove Patch) 1 ea TRDERM Q72H [facility] Last Admin: 03/09/18 10:08 Dose: Not Given Miscellaneous Information (Remove Patch) 1 ea TRDERM Q72H [facility] Last Admin: 04/11/18 09:30 Dose: Not Given Senna (Senna) 8.6 mg PO BID@0800,1700 [facility] Last Admin: 12/18/17 08:51 Dose: 8.6 mg Senna/Docusate Sodium (Senna Plus) 1 tab PO BID@0800,1700 [facility] Last Admin: 12/08/17 07:19 Dose: 1 tab Senna/Docusate Sodium (Senna Plus) 1 tab PO BID [facility] Sodium Biphosphate/Sodium Phosphate (Fleet Enema) 133 ml RECTAL ONETIME ONE Stop: 12/09/17 15:59 Last Admin: 12/09/17 16:25 Dose: 1 bottle - Exam General: No Acute Distress HEENT: Pupils Equal, Pupils Reactive Neck: Supple Lungs: Clear to Auscultation Cardiovascular: Regular Rate, Regular Rhythm GI/Abdominal Exam: Normal Bowel Sounds - Problem List & Annotations (1) Comfort measures only status SNOMED Code(s): 66998312525134 Code(s): Z51.5 - ENCOUNTER FOR PALLIATIVE CARE Status: Chronic Priority: High Current Visit: Yes (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 Code(s): F03.91 - UNSPECIFIED DEMENTIA WITH BEHAVIORAL DISTURBANCE Status: Chronic Priority: High Current Visit: Yes Qualifiers: Dementia behavioral disturbance: with behavioral disturbance Qualified Code (s): F02.81 - Dementia in other diseases classified elsewhere with behavioral disturbance (3) Diabetes mellitus SNOMED Code(s): 00849327 Code(s): E11.9 - TYPE 2 DIABETES MELLITUS WITHOUT COMPLICATIONS Status: Chronic Priority: Medium Current Visit: Yes Qualifiers: Diabetes mellitus type: type 2 Diabetes mellitus retirement insulin use: without long term care social worker use Diabetes mellitus complication status: with hyperglycemia Qualified Code(s): E11.65 - Type 2 diabetes mellitus with hyperglycemia (4) Incontinence overflow, urine SNOMED Code(s): 371865250 Code(s): N39.490 - OVERFLOW INCONTINENCE Status: Chronic Priority: Medium Current Visit: Yes (5) Neurogenic bladder SNOMED Code(s): 243563336 Code(s): N31.9 - NEUROMUSCULAR DYSFUNCTION OF BLADDER, UNSPECIFIED Status: Chronic Priority: Medium Current Visit: Yes (6) Palliative care patient SNOMED Code(s): 142633918 Code(s): Z51.5 - ENCOUNTER FOR PALLIATIVE CARE Status: Chronic Priority: High Current Visit: Yes (7) Paranoid schizophrenia, chronic condition SNOMED Code(s): 18284065 Code(s): F20.0 - PARANOID SCHIZOPHRENIA Status: Chronic Priority: High Current Visit: Yes - Problem List Review Problem List Initiated/Reviewed/Updated: Yes - Plan Plan:: Patient to continue current diet and management. No changes to supportive care. We will also continue to monitor for any bed sores. Patient resting well and is very stable. 11/09/17 No changes to status at this time. Patient is resting comfortably. He does eat with help from nursing staff. 12/17/17 Patient stable and continues on comfort cares. No changes to medications or status. Continue current diet and monitoring. 01/04/18 No changes to care of patient. We will continue comfort cares with current diet. 01/11/18 Patient continues with comfort cares and is eating routinely with certain nurses. 01/19/18 No changes at this time. We will continue current cares and comfort cares. 01/25/18 We will continue comfort cares. Continue feeding as routine and oral cares. Continue to monitor bed sores and continue turning. 02/04/18 Patient is not as responsive. We will continue feeding as tolerated if alert and continue current cares and pain management. Patient does appear much weaker and thinner. 02/16/18 Patient is stable and we have increase pain management due to increased signs of agitation and grimacing with movement during bed turning and hygiene. 03/01/18 Patient is stable with no current medication changes. We have added temporary Cipro for 5 days to treat 2 different bacteria. All 4 cultured are sensitive to Cipro. (his urine was cloudy and patient exhibited symptoms of confusion prior to obtaining UA and culture) 03/09/18 No changes to medications. We will continue to monitor pain and decubitus ulceration. Continue comfort cares and adjustment as needed. Nursing to maintain feeding as tolerated. CHUTE PULLER consult as needed. 04/05/18 Patient continues to be stable and maintained with feedings and wound care, bed turning and vital checks per shift and routine prn checks. 04/12/18 Continue with palliative care. We will continue feeding as tolerated. Continue current bed care and very frequent moving. No other changes to be done at this time. 04/19/18 No changes to palliative care. Patient will continue food with 3 meals daily and as needed snacks as tolerated. We will monitor swallowing as needed as we are always concerned of aspiration. 04/26/18 Patient stable with some cough. We will monitor swallowing and for aspiration.
[2018-04-26] MEDS: LORazepam 0.5 MG Tab PO PRN (19:12)
[2018-04-26] MEDS: SEROQUEL 400 MG PO SCH (19:12)
[2018-04-27] MEDS: Albuterol 0.083% 2.5 MG/3 ML Neb Soln NEB PRN (02:44)
[2018-04-27] MEDS: Scopolamine 1.5 MG Transdermal Patch TOP PRN (02:54)
[2018-04-27] MEDS: Non-Formulary Medication 1 Each (Metronidazole [Metronidazole 0.75% Cream] 1 APPLIC) TOP SCH (07:43)
[2018-04-27] MEDS: SENNOSIDES PO SCH ×2 (07:43→16:58)
[2018-04-27] MEDS: Magnesium Hydroxide 400 MG/5 ML Susp 30 ML Cup PO SCH (07:43)
[2018-04-27] MEDS: Acetaminophen 650 MG Tab.ER PO SCH ×2 (07:43→19:34)
[2018-04-27] MEDS: DOCUSATE PO SCH ×2 (07:43→16:58)
[2018-04-27] MEDS: Citalopram 20 MG Tab PO SCH (07:43)
[2018-04-27] MEDS: Acetaminophen/HYDROcodone 325-5 MG Tab PO PRN ×3 (07:44→19:33)
[2018-04-27] MEDS: LORazepam 0.5 MG Tab PO PRN (19:32)
[2018-04-27] MEDS: SEROQUEL 400 MG PO SCH (19:33)
[2018-04-28] MEDS: Non-Formulary Medication 1 Each (Metronidazole [Metronidazole 0.75% Cream] 1 APPLIC) TOP SCH (07:42)
[2018-04-28] MEDS: Magnesium Hydroxide 400 MG/5 ML Susp 30 ML Cup PO SCH (07:42)
[2018-04-28] MEDS: Citalopram 20 MG Tab PO SCH (07:42)
[2018-04-28] MEDS: DOCUSATE PO SCH ×2 (07:43→16:38)
[2018-04-28] MEDS: Acetaminophen 650 MG Tab.ER PO SCH ×2 (07:43→20:16)
[2018-04-28] MEDS: SENNOSIDES PO SCH ×2 (07:43→16:38)
[2018-04-28] MEDS: Acetaminophen/HYDROcodone 325-5 MG Tab PO PRN (20:16)
[2018-04-28] MEDS: SEROQUEL 400 MG PO SCH (20:16)
[2018-04-28] MEDS: LORazepam 0.5 MG Tab PO PRN (20:16)
[2018-04-29] MEDS: Citalopram 20 MG Tab PO SCH (08:30)
[2018-04-29] MEDS: Non-Formulary Medication 1 Each (Metronidazole [Metronidazole 0.75% Cream] 1 APPLIC) TOP SCH (08:31)
[2018-04-29] MEDS: DOCUSATE PO SCH ×2 (08:31→18:18)
[2018-04-29] MEDS: SENNOSIDES PO SCH ×2 (08:31→18:18)
[2018-04-29] MEDS: Acetaminophen 650 MG Tab.ER PO SCH ×2 (08:34→19:21)
[2018-04-29] MEDS: FENTANYL 75 MCG TRDERM SCH (08:42)
[2018-04-29] MEDS: FENTANYL 12 MCG/HR TRDERM SCH (08:42)
[2018-04-29] MEDS: Magnesium Hydroxide 400 MG/5 ML Susp 30 ML Cup PO SCH (08:44)
[2018-04-29] MEDS: Albuterol 0.083% 2.5 MG/3 ML Neb Soln NEB PRN (19:00)
[2018-04-29] MEDS: Acetaminophen/HYDROcodone 325-5 MG Tab PO PRN (19:19)
[2018-04-29] MEDS: SEROQUEL 400 MG PO SCH (19:20)
[2018-04-30] MEDS: Citalopram 20 MG Tab PO SCH (09:03)
[2018-04-30] MEDS: Non-Formulary Medication 1 Each (Metronidazole [Metronidazole 0.75% Cream] 1 APPLIC) TOP SCH (09:04)
[2018-04-30] MEDS: Acetaminophen 650 MG Tab.ER PO SCH ×2 (09:04→21:18)
[2018-04-30] MEDS: Magnesium Hydroxide 400 MG/5 ML Susp 30 ML Cup PO SCH (09:04)
[2018-04-30] MEDS: DOCUSATE PO SCH ×2 (09:04→17:30)
[2018-04-30] MEDS: SENNOSIDES PO SCH ×2 (09:04→17:30)
[2018-04-30] MEDS: Acetaminophen/HYDROcodone 325-5 MG Tab PO PRN ×2 (09:05→21:18)
[2018-04-30] MEDS: Ciprofloxacin 500 MG Tab PO SCH ×2 (10:29→21:18)
[2018-04-30] MEDS: SEROQUEL 400 MG PO SCH (21:18)
[2018-04-30] MEDS: LORazepam 0.5 MG Tab PO PRN (22:28)
[2018-05-01] MEDS: Bisacodyl 10 MG Supp RECTAL PRN (01:30)
[2018-05-01] MEDS: LORazepam 0.5 MG Tab PO PRN ×2 (10:55→20:30)
[2018-05-01] MEDS: Magnesium Hydroxide 400 MG/5 ML Susp 30 ML Cup PO SCH (10:55)
[2018-05-01] MEDS: Acetaminophen/HYDROcodone 325-5 MG Tab PO PRN ×2 (10:55→20:29)
[2018-05-01] MEDS: Non-Formulary Medication 1 Each (Metronidazole [Metronidazole 0.75% Cream] 1 APPLIC) TOP SCH (10:57)
[2018-05-01] MEDS: SENNOSIDES PO SCH ×2 (10:59→17:30)
[2018-05-01] MEDS: Acetaminophen 650 MG Tab.ER PO SCH ×2 (10:59→20:29)
[2018-05-01] MEDS: DOCUSATE PO SCH ×2 (10:59→17:30)
[2018-05-01] MEDS: Ciprofloxacin 500 MG Tab PO SCH ×2 (11:01→20:30)
[2018-05-01] MEDS: Citalopram 20 MG Tab PO SCH (11:01)
[2018-05-01] MEDS: SEROQUEL 400 MG PO SCH (20:29)
[2018-05-02] MEDS: Citalopram 20 MG Tab PO SCH (07:46)
[2018-05-02] MEDS: FENTANYL 12 MCG/HR TRDERM SCH (07:47)
[2018-05-02] MEDS: FENTANYL 75 MCG TRDERM SCH (07:47)
[2018-05-02] MEDS: Non-Formulary Medication 1 Each (Metronidazole [Metronidazole 0.75% Cream] 1 APPLIC) TOP SCH (07:47)
[2018-05-02] MEDS: Ciprofloxacin 500 MG Tab PO SCH ×2 (07:47→19:51)
[2018-05-02] MEDS: DOCUSATE PO SCH ×2 (07:48→17:28)
[2018-05-02] MEDS: Acetaminophen 650 MG Tab.ER PO SCH ×2 (07:48→19:47)
[2018-05-02] MEDS: SENNOSIDES PO SCH ×2 (07:48→17:28)
[2018-05-02] MEDS: LORazepam 0.5 MG Tab PO PRN ×2 (07:48→19:52)
[2018-05-02] MEDS: Magnesium Hydroxide 400 MG/5 ML Susp 30 ML Cup PO SCH (07:48)
[2018-05-02] MEDS: Acetaminophen/HYDROcodone 325-5 MG Tab PO PRN ×2 (07:49→19:52)
[2018-05-02] MEDS: SEROQUEL 400 MG PO SCH (19:50)
[2018-05-02] MEDS: Bisacodyl 10 MG Supp RECTAL PRN (23:51)
[2018-05-03] MEDS: DOCUSATE PO SCH ×2 (07:46→16:57)
[2018-05-03] MEDS: SENNOSIDES PO SCH ×2 (07:46→16:57)
[2018-05-03] MEDS: Magnesium Hydroxide 400 MG/5 ML Susp 30 ML Cup PO SCH (07:47)
[2018-05-03] MEDS: Citalopram 20 MG Tab PO SCH (07:47)
[2018-05-03] MEDS: Acetaminophen 650 MG Tab.ER PO SCH ×2 (07:48→21:31)
[2018-05-03] MEDS: Non-Formulary Medication 1 Each (Metronidazole [Metronidazole 0.75% Cream] 1 APPLIC) TOP SCH (07:48)
[2018-05-03] MEDS: Ciprofloxacin 500 MG Tab PO SCH ×2 (07:50→21:30)
--- NOTE | 2018-05-03 17:20 | PCM.PN ---
- General Info Date of Service: 05/03/18 Subjective Update: Patient was placed on cipro this week due to UTI symptoms for comfort. Patient did show some confusion and odor of the urine. No other changes at this time and patient does continue to eat as tolerated. Functional Status: Reports: Pain Controlled - Review of Systems General: Reports: Weakness HEENT: Reports: No Symptoms Pulmonary: Reports: Other (minimal cough - improved) Cardiovascular: Reports: No Symptoms Gastrointestinal: Reports: No Symptoms Musculoskeletal: Reports: No Symptoms - Patient Data Vitals - Most Recent: Last Vital Signs Temp 36.2 C 04/27/18 02:35 Pulse 72 04/27/18 02:35 Resp 17 04/11/18 09:50 BP 130/52 L 04/11/18 09:50 Pulse Ox 94 L 05/01/18 20:00 Weight - Most Recent: 58.241 kg Med Orders - Current: Current Medications Acetaminophen (Tylenol Arthritis Pain) 650 mg PO BID [facility] Last Admin: 05/03/18 07:48 Dose: 650 mg Hydrocodone Bitart/Acetaminophen ([place] 325-5 Mg) 1 tab PO Q4H PRN PRN Reason: MODERATE PAIN Last Admin: 05/02/18 19:52 Dose: 1 tab Albuterol (Proventil Neb Soln) 2.5 mg NEB Q4H PRN PRN Reason: Shortness of Breath Last Admin: 04/29/18 19:00 Dose: 2.5 mg Bisacodyl (Dulcolax) 10 mg RECTAL DAILY PRN PRN Reason: CONSTIPATION Last Admin: 05/02/18 23:51 Dose: 10 mg Ciprofloxacin (Ciprofloxacin Hcl) 500 mg PO BID [facility] Stop: 05/04/18 20:01 Last Admin: 05/03/18 07:50 Dose: 500 mg Citalopram Hydrobromide (Celexa) 20 mg PO DAILY [facility] Last Admin: 05/03/18 07:47 Dose: 20 mg Fentanyl (Duragesic) 75 mcg TRDERM Q72H [facility] Last Admin: 05/02/18 07:47 Dose: 75 mcg Fentanyl (Duragesic) 12 mcg TRDERM Q72H [facility] Last Admin: 05/02/18 07:47 Dose: 12 mcg Loperamide HCl (Imodium) 2 mg PO Q4H PRN PRN Reason: DIARRHEA Lorazepam (Ativan) 0.5 mg PO Q8H PRN PRN Reason: ANXIETY Last Admin: 05/02/18 19:52 Dose: 0.5 mg Magnesium Hydroxide (Milk Of Magnesia) 30 ml PO DAILY [facility] Last Admin: 05/03/18 07:47 Dose: 30 ml Miscellaneous Information (Remove Patch) 1 ea TRDERM Q72H [facility] Last Admin: 05/02/18 07:48 Dose: 1 ea Morphine Sulfate (Morphine) 2 mg SUBCUT Q4H PRN PRN Reason: PAIN Last Admin: 04/12/18 06:21 Dose: 2 mg Seroquel 400mg (Tablets) 1 each PO BEDTIME [facility] Last Admin: 05/02/18 19:50 Dose: 1 each Non-Formulary Medication (Metronidazole [Metronidazole 0.75% Cream]) 1 applic TOP DAILY [facility] Last Admin: 05/03/18 07:48 Dose: 1 applic Quetiapine Fumarate (Seroquel) 50 mg PO BEDTIME [facility] Last Admin: 05/02/18 19:51 Dose: 50 mg Quetiapine Fumarate (Seroquel) 200 mg PO DAILY@0800,1200 [facility] Last Admin: 05/03/18 11:44 Dose: 200 mg Quetiapine Fumarate (Seroquel) 50 mg PO DAILY@0800,1200 [facility] Last Admin: 05/03/18 11:45 Dose: 50 mg Scopolamine (Transderm-Scop) 1.5 mg TOP Q72H PRN PRN Reason: SECRETIONS Last Admin: 04/27/18 02:54 Dose: 1.5 mg Senna/Docusate Sodium (Senna Plus) 1 tab PO BID@0800,1700 [facility] Last Admin: 05/03/18 16:57 Dose: 1 tab Discontinued Medications Acetaminophen (Tylenol) 650 mg PO BID [facility] Last Admin: 10/19/17 07:20 Dose: 650 mg Ciprofloxacin (Ciprofloxacin Hcl) 250 mg PO BID [facility] Stop: 12/04/17 20:01 Last Admin: 12/04/17 20:30 Dose: Not Given Ciprofloxacin (Ciprofloxacin Hcl) 500 mg PO BID [facility] Stop: 03/08/18 23:59 Last Admin: 03/08/18 19:33 Dose: 500 mg Fentanyl (Duragesic) 25 mcg TRDERM Q72H [facility] Last Admin: 12/01/17 08:00 Dose: 25 mcg Fentanyl (Duragesic) 12 mcg TRDERM Q72H [facility] Last Admin: 12/01/17 08:00 Dose: 12 mcg Fentanyl (Duragesic) 12 mcg TRDERM Q72H [facility] Last Admin: 12/03/17 20:20 Dose: Not Given Fentanyl (Duragesic) 25 mcg TRDERM ONETIME ONE Stop: 12/02/17 18:31 Last Admin: 12/02/17 18:37 Dose: 25 mcg Fentanyl (Duragesic) 50 mcg TRDERM Q72H [facility] Last Admin: 12/04/17 11:45 Dose: Not Given Fentanyl (Duragesic) 50 mcg TRDERM Q72H [facility] Last Admin: 12/16/17 09:19 Dose: 50 mcg Fentanyl (Duragesic) 50 mcg TRDERM Q72H [facility] Last Admin: 01/18/18 12:25 Dose: 50 mcg Fentanyl (Duragesic) 50 mcg TRDERM Q72H [facility] Last Admin: 02/13/18 09:00 Dose: 50 mcg Fentanyl (Duragesic) 75 mcg TRDERM Q72H [facility] Last Admin: 02/15/18 11:03 Dose: Not Given Fentanyl (Duragesic) 25 mcg TRDERM Q72H [facility] Last Admin: 03/09/18 10:10 Dose: 25 mcg Fentanyl (Duragesic) 50 mcg TRDERM Q72H [facility] Last Admin: 02/16/18 09:19 Dose: Not Given Fentanyl (Duragesic) 50 mcg TRDERM Q72H [facility] Last Admin: 03/09/18 10:10 Dose: 50 mcg Fentanyl (Duragesic) 75 mcg TRDERM Q72H [facility] Last Admin: 04/11/18 09:31 Dose: 75 mcg Fentanyl (Duragesic) 12 mcg TRDERM Q72H [facility] Lactated Ringer's (Ringers, Lactated) 1,000 mls @ 75 mls/hr IV ASDIRECTED [facility] Lorazepam (Ativan) Confirm Administered Dose 2 mg .ROUTE .STK-MED ONE Stop: 10/10/17 19:54 Last Admin: 10/10/17 20:02 Dose: 2 mg Lorazepam (Ativan) 1 mg IM Q4H PRN PRN Reason: Agitation Last Admin: 01/07/18 19:07 Dose: 1 mg Magnesium Hydroxide (Milk Of Magnesia) Confirm Administered Dose 30 ml .ROUTE .STK-MED ONE Stop: 12/09/17 15:52 Last Admin: 12/09/17 15:59 Dose: 30 ml Magnesium Hydroxide (Milk Of Magnesia) Confirm Administered Dose 30 ml .ROUTE .STK-MED ONE Stop: 12/17/17 10:02 Last Admin: 12/17/17 10:11 Dose: 30 ml Magnesium Hydroxide (Milk Of Magnesia) 30 ml PO BEDTIME [facility] Last Admin: 12/20/17 00:06 Dose: Not Given Magnesium Hydroxide (Milk Of Magnesia) 30 ml PO DAILY@0800 [facility] Last Admin: 12/20/17 10:13 Dose: 30 ml Miscellaneous Information (Remove Patch) 1 ea TRDERM Q72H [facility] Last Admin: 12/01/17 08:00 Dose: 1 ea Miscellaneous Information (Remove Patch) 1 ea TRDERM Q72H [facility] Last Admin: 01/21/18 08:45 Dose: Not Given Miscellaneous Information (Remove Patch) 1 ea TRDERM Q72H [facility] Last Admin: 03/09/18 10:08 Dose: Not Given Miscellaneous Information (Remove Patch) 1 ea TRDERM Q72H [facility] Last Admin: 04/11/18 09:30 Dose: Not Given Senna (Senna) 8.6 mg PO BID@0800,1700 [facility] Last Admin: 12/18/17 08:51 Dose: 8.6 mg Senna/Docusate Sodium (Senna Plus) 1 tab PO BID@0800,1700 [facility] Last Admin: 12/08/17 07:19 Dose: 1 tab Senna/Docusate Sodium (Senna Plus) 1 tab PO BID [facility] Sodium Biphosphate/Sodium Phosphate (Fleet Enema) 133 ml RECTAL ONETIME ONE Stop: 12/09/17 15:59 Last Admin: 12/09/17 16:25 Dose: 1 bottle - Problem List & Annotations (1) Comfort measures only status SNOMED Code(s): 59844444731391 Code(s): Z51.5 - ENCOUNTER FOR PALLIATIVE CARE Status: Chronic Priority: High Current Visit: Yes (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 Code(s): F03.91 - UNSPECIFIED DEMENTIA WITH BEHAVIORAL DISTURBANCE Status: Chronic Priority: High Current Visit: Yes Qualifiers: Dementia behavioral disturbance: with behavioral disturbance Qualified Code (s): F02.81 - Dementia in other diseases classified elsewhere with behavioral disturbance (3) Diabetes mellitus SNOMED Code(s): 28393851 Code(s): E11.9 - TYPE 2 DIABETES MELLITUS WITHOUT COMPLICATIONS Status: Chronic Priority: Medium Current Visit: Yes Qualifiers: Diabetes mellitus type: type 2 Diabetes mellitus mcfp insulin use: without intermission coordinator use Diabetes mellitus complication status: with hyperglycemia Qualified Code(s): E11.65 - Type 2 diabetes mellitus with hyperglycemia (4) Incontinence overflow, urine SNOMED Code(s): 050686395 Code(s): N39.490 - OVERFLOW INCONTINENCE Status: Chronic Priority: Medium Current Visit: Yes (5) Neurogenic bladder SNOMED Code(s): 153656134 Code(s): N31.9 - NEUROMUSCULAR DYSFUNCTION OF BLADDER, UNSPECIFIED Status: Chronic Priority: Medium Current Visit: Yes (6) Palliative care patient SNOMED Code(s): 532868449 Code(s): Z51.5 - ENCOUNTER FOR PALLIATIVE CARE Status: Chronic Priority: High Current Visit: Yes (7) Paranoid schizophrenia, chronic condition SNOMED Code(s): 52644451 Code(s): F20.0 - PARANOID SCHIZOPHRENIA Status: Chronic Priority: High Current Visit: Yes - Problem List Review Problem List Initiated/Reviewed/Updated: Yes - Plan Plan:: Patient to continue current diet and management. No changes to supportive care. We will also continue to monitor for any bed sores. Patient resting well and is very stable. 11/09/17 No changes to status at this time. Patient is resting comfortably. He does eat with help from nursing staff. 12/17/17 Patient stable and continues on comfort cares. No changes to medications or status. Continue current diet and monitoring. 01/04/18 No changes to care of patient. We will continue comfort cares with current diet. 01/11/18 Patient continues with comfort cares and is eating routinely with certain nurses. 01/19/18 No changes at this time. We will continue current cares and comfort cares. 01/25/18 We will continue comfort cares. Continue feeding as routine and oral cares. Continue to monitor bed sores and continue turning. 02/04/18 Patient is not as responsive. We will continue feeding as tolerated if alert and continue current cares and pain management. Patient does appear much weaker and thinner. 02/16/18 Patient is stable and we have increase pain management due to increased signs of agitation and grimacing with movement during bed turning and hygiene. 03/01/18 Patient is stable with no current medication changes. We have added temporary Cipro for 5 days to treat 2 different bacteria. All 4 cultured are sensitive to Cipro. (his urine was cloudy and patient exhibited symptoms of confusion prior to obtaining UA and culture) 03/09/18 No changes to medications. We will continue to monitor pain and decubitus ulceration. Continue comfort cares and adjustment as needed. Nursing to maintain feeding as tolerated. 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 04/05/18 Patient continues to be stable and maintained with feedings and wound care, bed turning and vital checks per shift and routine prn checks. 04/12/18 Continue with palliative care. We will continue feeding as tolerated. Continue current bed care and very frequent moving. No other changes to be done at this time. 04/19/18 No changes to palliative care. Patient will continue food with 3 meals daily and as needed snacks as tolerated. We will monitor swallowing as needed as we are always concerned of aspiration. 05/03/18 We will monitor current chest congestion and cough as needed. We will continue to feed as tolerated. Pain management steady with a prior fentanyl increase a few weeks ago. Cipro course continued and monitoring of UTI symptoms.
[2018-05-03] MEDS: Acetaminophen/HYDROcodone 325-5 MG Tab PO PRN (21:30)
[2018-05-03] MEDS: LORazepam 0.5 MG Tab PO PRN (21:30)
[2018-05-03] MEDS: SEROQUEL 400 MG PO SCH (21:31)
[2018-05-04] MEDS: Acetaminophen 650 MG Tab.ER PO SCH ×2 (08:13→19:49)
[2018-05-04] MEDS: SENNOSIDES PO SCH ×2 (08:14→16:00)
[2018-05-04] MEDS: Magnesium Hydroxide 400 MG/5 ML Susp 30 ML Cup PO SCH (08:14)
[2018-05-04] MEDS: DOCUSATE PO SCH ×2 (08:14→16:00)
[2018-05-04] MEDS: Citalopram 20 MG Tab PO SCH (08:14)
[2018-05-04] MEDS: Non-Formulary Medication 1 Each (Metronidazole [Metronidazole 0.75% Cream] 1 APPLIC) TOP SCH (08:14)
[2018-05-04] MEDS: Ciprofloxacin 500 MG Tab PO SCH ×2 (08:14→19:49)
[2018-05-04] MEDS: Acetaminophen/HYDROcodone 325-5 MG Tab PO PRN ×2 (12:00→19:48)
[2018-05-04] MEDS: LORazepam 0.5 MG Tab PO PRN (19:49)
[2018-05-04] MEDS: SEROQUEL 400 MG PO SCH (19:49)
[2018-05-05] MEDS: Citalopram 20 MG Tab PO SCH (07:30)
[2018-05-05] MEDS: FENTANYL 12 MCG/HR TRDERM SCH (07:34)
[2018-05-05] MEDS: FENTANYL 75 MCG TRDERM SCH (07:35)
[2018-05-05] MEDS: Acetaminophen 650 MG Tab.ER PO SCH ×2 (07:36→20:00)
[2018-05-05] MEDS: DOCUSATE PO SCH ×2 (07:36→17:34)
[2018-05-05] MEDS: Magnesium Hydroxide 400 MG/5 ML Susp 30 ML Cup PO SCH (07:36)
[2018-05-05] MEDS: Non-Formulary Medication 1 Each (Metronidazole [Metronidazole 0.75% Cream] 1 APPLIC) TOP SCH (07:36)
[2018-05-05] MEDS: SENNOSIDES PO SCH ×2 (07:36→17:34)
[2018-05-05] MEDS: Ciprofloxacin 500 MG Tab PO SCH (07:38)
[2018-05-05] MEDS: SEROQUEL 400 MG PO SCH (20:00)
[2018-05-05] MEDS: LORazepam 0.5 MG Tab PO PRN (20:00)
[2018-05-05] MEDS: Acetaminophen/HYDROcodone 325-5 MG Tab PO PRN (20:00)
[2018-05-06] MEDS: Non-Formulary Medication 1 Each (Metronidazole [Metronidazole 0.75% Cream] 1 APPLIC) TOP SCH (07:41)
[2018-05-06] MEDS: Magnesium Hydroxide 400 MG/5 ML Susp 30 ML Cup PO SCH (07:41)
[2018-05-06] MEDS: DOCUSATE PO SCH ×2 (07:41→18:13)
[2018-05-06] MEDS: SENNOSIDES PO SCH ×2 (07:41→18:13)
[2018-05-06] MEDS: Citalopram 20 MG Tab PO SCH (07:41)
[2018-05-06] MEDS: Acetaminophen 650 MG Tab.ER PO SCH ×2 (07:41→20:23)
[2018-05-06] MEDS: SEROQUEL 400 MG PO SCH (20:23)
[2018-05-06] MEDS: LORazepam 0.5 MG Tab PO PRN (20:23)
[2018-05-06] MEDS: Acetaminophen/HYDROcodone 325-5 MG Tab PO PRN (20:23)
[2018-05-07] MEDS: Acetaminophen/HYDROcodone 325-5 MG Tab PO PRN ×3 (07:33→19:28)
[2018-05-07] MEDS: Citalopram 20 MG Tab PO SCH (07:34)
[2018-05-07] MEDS: Non-Formulary Medication 1 Each (Metronidazole [Metronidazole 0.75% Cream] 1 APPLIC) TOP SCH (07:34)
[2018-05-07] MEDS: Magnesium Hydroxide 400 MG/5 ML Susp 30 ML Cup PO SCH (07:34)
[2018-05-07] MEDS: Acetaminophen 650 MG Tab.ER PO SCH ×2 (07:35→19:28)
[2018-05-07] MEDS: Bisacodyl 10 MG Supp RECTAL PRN (11:00)
[2018-05-07] MEDS: LORazepam 0.5 MG Tab PO PRN (19:28)
[2018-05-07] MEDS: SEROQUEL 400 MG PO SCH (19:28)
[2018-05-08] MEDS: Bisacodyl 10 MG Supp RECTAL PRN (07:45)
[2018-05-08] MEDS: FENTANYL 12 MCG/HR TRDERM SCH (07:51)
[2018-05-08] MEDS: FENTANYL 75 MCG TRDERM SCH ×2 (07:51→07:52)
[2018-05-08] MEDS: Acetaminophen 650 MG Tab.ER PO SCH ×2 (07:53→19:43)
[2018-05-08] MEDS: Non-Formulary Medication 1 Each (Metronidazole [Metronidazole 0.75% Cream] 1 APPLIC) TOP SCH (07:53)
[2018-05-08] MEDS: Magnesium Hydroxide 400 MG/5 ML Susp 30 ML Cup PO SCH (07:53)
[2018-05-08] MEDS: Acetaminophen/HYDROcodone 325-5 MG Tab PO PRN ×2 (07:54→19:43)
[2018-05-08] MEDS: Citalopram 20 MG Tab PO SCH (07:54)
[2018-05-08] MEDS: SEROQUEL 400 MG PO SCH (19:43)
[2018-05-08] MEDS: LORazepam 0.5 MG Tab PO PRN (19:44)
[2018-05-09] MEDS: Acetaminophen/HYDROcodone 325-5 MG Tab PO PRN ×3 (07:59→20:35)
[2018-05-09] MEDS: Magnesium Hydroxide 400 MG/5 ML Susp 30 ML Cup PO SCH (07:59)
[2018-05-09] MEDS: Acetaminophen 650 MG Tab.ER PO SCH ×2 (07:59→20:34)
[2018-05-09] MEDS: Non-Formulary Medication 1 Each (Metronidazole [Metronidazole 0.75% Cream] 1 APPLIC) TOP SCH (07:59)
[2018-05-09] MEDS: Citalopram 20 MG Tab PO SCH (07:59)
[2018-05-09] MEDS: SEROQUEL 400 MG PO SCH (20:34)
[2018-05-09] MEDS: LORazepam 0.5 MG Tab PO PRN (20:35)
[2018-05-10] MEDS: Non-Formulary Medication 1 Each (Metronidazole [Metronidazole 0.75% Cream] 1 APPLIC) TOP SCH (07:15)
[2018-05-10] MEDS: Citalopram 20 MG Tab PO SCH (07:15)
[2018-05-10] MEDS: Magnesium Hydroxide 400 MG/5 ML Susp 30 ML Cup PO SCH (07:15)
[2018-05-10] MEDS: Acetaminophen 650 MG Tab.ER PO SCH ×2 (07:16→20:03)
[2018-05-10] MEDS: Acetaminophen/HYDROcodone 325-5 MG Tab PO PRN ×2 (07:16→17:20)
[2018-05-10] MEDS: SEROQUEL 400 MG PO SCH (20:01)
[2018-05-10] MEDS: LORazepam 0.5 MG Tab PO PRN (20:02)
[2018-05-11 06:48] VITALS: BP 157/70
[2018-05-11] MEDS: Acetaminophen/HYDROcodone 325-5 MG Tab PO PRN ×2 (07:30→19:55)
[2018-05-11] MEDS: Citalopram 20 MG Tab PO SCH (08:32)
[2018-05-11] MEDS: FENTANYL 12 MCG/HR TRDERM SCH (08:39)
[2018-05-11] MEDS: Magnesium Hydroxide 400 MG/5 ML Susp 30 ML Cup PO SCH (08:40)
[2018-05-11] MEDS: Non-Formulary Medication 1 Each (Metronidazole [Metronidazole 0.75% Cream] 1 APPLIC) TOP SCH (08:40)
[2018-05-11] MEDS: FENTANYL 75 MCG TRDERM SCH (08:40)
[2018-05-11] MEDS: Acetaminophen 650 MG Tab.ER PO SCH ×2 (08:41→19:55)
[2018-05-11] MEDS: LORazepam 0.5 MG Tab PO PRN (19:54)
[2018-05-11] MEDS: SEROQUEL 400 MG PO SCH (19:54)
[2018-05-12] MEDS: Magnesium Hydroxide 400 MG/5 ML Susp 30 ML Cup PO SCH (09:30)
[2018-05-12] MEDS: Citalopram 20 MG Tab PO SCH (09:30)
[2018-05-12] MEDS: Acetaminophen 650 MG Tab.ER PO SCH ×2 (09:30→19:52)
[2018-05-12] MEDS: Non-Formulary Medication 1 Each (Metronidazole [Metronidazole 0.75% Cream] 1 APPLIC) TOP SCH (10:48)
[2018-05-12] MEDS: LORazepam 0.5 MG Tab PO PRN (13:11)
[2018-05-12] MEDS: Acetaminophen/HYDROcodone 325-5 MG Tab PO PRN ×2 (13:11→20:01)
[2018-05-12] MEDS: SEROQUEL 400 MG PO SCH (19:54)
[2018-05-13] MEDS: Magnesium Hydroxide 400 MG/5 ML Susp 30 ML Cup PO SCH (08:31)
[2018-05-13] MEDS: Non-Formulary Medication 1 Each (Metronidazole [Metronidazole 0.75% Cream] 1 APPLIC) TOP SCH (08:31)
[2018-05-13] MEDS: Citalopram 20 MG Tab PO SCH (08:31)
[2018-05-13] MEDS: Acetaminophen 650 MG Tab.ER PO SCH ×2 (08:32→20:21)
[2018-05-13] MEDS: Acetaminophen/HYDROcodone 325-5 MG Tab PO PRN ×2 (08:32→20:24)
[2018-05-13] MEDS: LORazepam 0.5 MG Tab PO PRN (08:33)
[2018-05-13] MEDS: Bisacodyl 10 MG Supp RECTAL PRN (16:00)
[2018-05-13] MEDS: SEROQUEL 400 MG PO SCH (20:21)
[2018-05-14] MEDS: Acetaminophen/HYDROcodone 325-5 MG Tab PO PRN ×2 (07:52→20:51)
[2018-05-14] MEDS: Citalopram 20 MG Tab PO SCH (07:53)
[2018-05-14] MEDS: Non-Formulary Medication 1 Each (Metronidazole [Metronidazole 0.75% Cream] 1 APPLIC) TOP SCH (07:53)
[2018-05-14] MEDS: Magnesium Hydroxide 400 MG/5 ML Susp 30 ML Cup PO SCH (07:53)
[2018-05-14] MEDS: Acetaminophen 650 MG Tab.ER PO SCH ×2 (07:54→20:52)
[2018-05-14] MEDS: FENTANYL 75 MCG TRDERM SCH (12:30)
[2018-05-14] MEDS: FENTANYL 12 MCG/HR TRDERM SCH (12:31)
[2018-05-14] MEDS: SEROQUEL 400 MG PO SCH (20:51)
[2018-05-14] MEDS: LORazepam 0.5 MG Tab PO PRN (20:53)
[2018-05-15] MEDS: Non-Formulary Medication 1 Each (Metronidazole [Metronidazole 0.75% Cream] 1 APPLIC) TOP SCH (08:27)
[2018-05-15] MEDS: Citalopram 20 MG Tab PO SCH (08:27)
[2018-05-15] MEDS: Acetaminophen 650 MG Tab.ER PO SCH ×2 (08:27→19:42)
[2018-05-15] MEDS: Magnesium Hydroxide 400 MG/5 ML Susp 30 ML Cup PO SCH (08:27)
[2018-05-15] MEDS: Acetaminophen/HYDROcodone 325-5 MG Tab PO PRN ×2 (08:28→19:42)
[2018-05-15] MEDS: LORazepam 0.5 MG Tab PO PRN ×2 (08:28→19:41)
[2018-05-15] MEDS: SEROQUEL 400 MG PO SCH (19:41)
[2018-05-16] MEDS: Non-Formulary Medication 1 Each (Metronidazole [Metronidazole 0.75% Cream] 1 APPLIC) TOP SCH (07:46)
[2018-05-16] MEDS: Magnesium Hydroxide 400 MG/5 ML Susp 30 ML Cup PO SCH (07:46)
[2018-05-16] MEDS: Citalopram 20 MG Tab PO SCH (07:46)
[2018-05-16] MEDS: Acetaminophen 650 MG Tab.ER PO SCH ×2 (07:46→19:47)
[2018-05-16] MEDS: Acetaminophen/HYDROcodone 325-5 MG Tab PO PRN ×2 (07:47→19:47)
[2018-05-16] MEDS: LORazepam 0.5 MG Tab PO PRN ×2 (07:47→19:46)
[2018-05-16] MEDS: SEROQUEL 400 MG PO SCH (19:46)
[2018-05-17] MEDS: FENTANYL 12 MCG/HR TRDERM SCH (07:07)
[2018-05-17] MEDS: FENTANYL 75 MCG TRDERM SCH (07:07)
[2018-05-17] MEDS: Citalopram 20 MG Tab PO SCH (07:07)
[2018-05-17] MEDS: Magnesium Hydroxide 400 MG/5 ML Susp 30 ML Cup PO SCH (07:08)
[2018-05-17] MEDS: Acetaminophen/HYDROcodone 325-5 MG Tab PO PRN ×2 (07:08→12:00)
[2018-05-17] MEDS: Acetaminophen 650 MG Tab.ER PO SCH ×2 (07:08→22:00)
[2018-05-17] MEDS: Non-Formulary Medication 1 Each (Metronidazole [Metronidazole 0.75% Cream] 1 APPLIC) TOP SCH (07:08)
[2018-05-17] MEDS: SEROQUEL 400 MG PO SCH (22:00)
[2018-05-18] MEDS: Magnesium Hydroxide 400 MG/5 ML Susp 30 ML Cup PO SCH (07:30)
[2018-05-18] MEDS: Acetaminophen/HYDROcodone 325-5 MG Tab PO PRN ×2 (07:31→19:28)
[2018-05-18] MEDS: Citalopram 20 MG Tab PO SCH (07:31)
[2018-05-18] MEDS: Non-Formulary Medication 1 Each (Metronidazole [Metronidazole 0.75% Cream] 1 APPLIC) TOP SCH (07:32)
[2018-05-18] MEDS: Acetaminophen 650 MG Tab.ER PO SCH ×2 (07:32→19:28)
[2018-05-18] MEDS: LORazepam 0.5 MG Tab PO PRN (19:28)
[2018-05-18] MEDS: SEROQUEL 400 MG PO SCH (19:30)
[2018-05-19] MEDS: Acetaminophen/HYDROcodone 325-5 MG Tab PO PRN ×3 (07:38→19:41)
[2018-05-19] MEDS: Acetaminophen 650 MG Tab.ER PO SCH ×2 (07:39→19:36)
[2018-05-19] MEDS: Citalopram 20 MG Tab PO SCH (07:39)
[2018-05-19] MEDS: Non-Formulary Medication 1 Each (Metronidazole [Metronidazole 0.75% Cream] 1 APPLIC) TOP SCH (07:40)
[2018-05-19] MEDS: Magnesium Hydroxide 400 MG/5 ML Susp 30 ML Cup PO SCH (07:40)
[2018-05-19] MEDS: SEROQUEL 400 MG PO SCH (19:35)
[2018-05-19] MEDS: LORazepam 0.5 MG Tab PO PRN (19:41)
[2018-05-20] MEDS: Citalopram 20 MG Tab PO SCH (07:54)
[2018-05-20] MEDS: Non-Formulary Medication 1 Each (Metronidazole [Metronidazole 0.75% Cream] 1 APPLIC) TOP SCH (07:55)
[2018-05-20] MEDS: Magnesium Hydroxide 400 MG/5 ML Susp 30 ML Cup PO SCH (07:55)
[2018-05-20] MEDS: Acetaminophen 650 MG Tab.ER PO SCH ×2 (07:56→19:51)
[2018-05-20] MEDS: FENTANYL 75 MCG TRDERM SCH (08:44)
[2018-05-20] MEDS: FENTANYL 12 MCG/HR TRDERM SCH (08:47)
[2018-05-20] MEDS: LORazepam 0.5 MG Tab PO PRN (19:50)
[2018-05-20] MEDS: SEROQUEL 400 MG PO SCH (19:50)
[2018-05-20] MEDS: Acetaminophen/HYDROcodone 325-5 MG Tab PO PRN (19:51)
[2018-05-21] MEDS: Acetaminophen 650 MG Tab.ER PO SCH ×2 (07:29→19:33)
[2018-05-21] MEDS: Non-Formulary Medication 1 Each (Metronidazole [Metronidazole 0.75% Cream] 1 APPLIC) TOP SCH (07:30)
[2018-05-21] MEDS: Magnesium Hydroxide 400 MG/5 ML Susp 30 ML Cup PO SCH (07:30)
[2018-05-21] MEDS: Citalopram 20 MG Tab PO SCH (07:30)
[2018-05-21] MEDS: LORazepam 0.5 MG Tab PO PRN (19:33)
[2018-05-21] MEDS: SEROQUEL 400 MG PO SCH (19:34)
[2018-05-22] MEDS: Citalopram 20 MG Tab PO SCH (07:29)
[2018-05-22] MEDS: Non-Formulary Medication 1 Each (Metronidazole [Metronidazole 0.75% Cream] 1 APPLIC) TOP SCH (07:30)
[2018-05-22] MEDS: Magnesium Hydroxide 400 MG/5 ML Susp 30 ML Cup PO SCH (07:30)
[2018-05-22] MEDS: Acetaminophen 650 MG Tab.ER PO SCH ×2 (07:32→19:15)
[2018-05-22] MEDS: SEROQUEL 400 MG PO SCH (19:14)
[2018-05-22] MEDS: LORazepam 0.5 MG Tab PO PRN (19:14)
[2018-05-22] MEDS: Acetaminophen/HYDROcodone 325-5 MG Tab PO PRN (19:14)
[2018-05-23] MEDS: Citalopram 20 MG Tab PO SCH (08:40)
[2018-05-23] MEDS: Magnesium Hydroxide 400 MG/5 ML Susp 30 ML Cup PO SCH (08:40)
[2018-05-23] MEDS: Acetaminophen 650 MG Tab.ER PO SCH ×2 (08:40→19:36)
[2018-05-23] MEDS: Non-Formulary Medication 1 Each (Metronidazole [Metronidazole 0.75% Cream] 1 APPLIC) TOP SCH (08:40)
[2018-05-23] MEDS: FENTANYL 12 MCG/HR TRDERM SCH (09:10)
[2018-05-23] MEDS: FENTANYL 75 MCG TRDERM SCH (09:10)
[2018-05-23] MEDS: Acetaminophen/HYDROcodone 325-5 MG Tab PO PRN (12:10)
[2018-05-23] MEDS: SEROQUEL 400 MG PO SCH (19:36)
[2018-05-24] MEDS: Citalopram 20 MG Tab PO SCH (07:40)
[2018-05-24] MEDS: Non-Formulary Medication 1 Each (Metronidazole [Metronidazole 0.75% Cream] 1 APPLIC) TOP SCH (07:41)
[2018-05-24] MEDS: Acetaminophen/HYDROcodone 325-5 MG Tab PO PRN ×4 (07:41→19:31)
[2018-05-24] MEDS: Magnesium Hydroxide 400 MG/5 ML Susp 30 ML Cup PO SCH (07:41)
[2018-05-24] MEDS: Acetaminophen 650 MG Tab.ER PO SCH ×2 (07:42→19:31)
[2018-05-24] MEDS: SEROQUEL 400 MG PO SCH (19:31)
[2018-05-24] MEDS: LORazepam 0.5 MG Tab PO PRN (19:31)
[2018-05-25] MEDS: Citalopram 20 MG Tab PO SCH (08:50)
[2018-05-25] MEDS: Acetaminophen 650 MG Tab.ER PO SCH ×2 (08:50→19:37)
[2018-05-25] MEDS: Acetaminophen/HYDROcodone 325-5 MG Tab PO PRN (08:50)
[2018-05-25] MEDS: Non-Formulary Medication 1 Each (Metronidazole [Metronidazole 0.75% Cream] 1 APPLIC) TOP SCH (08:51)
[2018-05-25] MEDS: Magnesium Hydroxide 400 MG/5 ML Susp 30 ML Cup PO SCH (08:51)
[2018-05-25] MEDS: SEROQUEL 400 MG PO SCH (19:37)
[2018-05-26] MEDS: Acetaminophen/HYDROcodone 325-5 MG Tab PO PRN ×2 (07:41→19:35)
[2018-05-26] MEDS: Citalopram 20 MG Tab PO SCH (07:41)
[2018-05-26] MEDS: Acetaminophen 650 MG Tab.ER PO SCH ×2 (07:41→19:36)
[2018-05-26] MEDS: Non-Formulary Medication 1 Each (Metronidazole [Metronidazole 0.75% Cream] 1 APPLIC) TOP SCH (07:42)
[2018-05-26] MEDS: Magnesium Hydroxide 400 MG/5 ML Susp 30 ML Cup PO SCH (07:42)
[2018-05-26] MEDS: FENTANYL 75 MCG TRDERM SCH (08:02)
[2018-05-26] MEDS: FENTANYL 12 MCG/HR TRDERM SCH (10:22)
[2018-05-26] MEDS: LORazepam 0.5 MG Tab PO PRN (19:35)
[2018-05-26] MEDS: SEROQUEL 400 MG PO SCH (19:35)
[2018-05-27] MEDS: Scopolamine 1.5 MG Transdermal Patch TOP PRN (07:32)
[2018-05-27] MEDS: Morphine 2 MG/ML Syringe SUBCUT PRN (10:28)
--- NOTE | 2018-05-28 10:15 | PCM.DCSUM1 ---
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 ICD Code: F03.91 - UNSPECIFIED DEMENTIA WITH BEHAVIORAL DISTURBANCE Status: Chronic Priority: High Qualifiers: Dementia behavioral disturbance: with behavioral disturbance Qualified Code (s): F02.81 - Dementia in other diseases classified elsewhere with behavioral disturbance (3) Diabetes mellitus SNOMED Code(s): 68357569 ICD Code: E11.9 - TYPE 2 DIABETES MELLITUS WITHOUT COMPLICATIONS Status: Chronic Priority: Medium Qualifiers: Diabetes mellitus type: type 2 Diabetes mellitus automatic spooler operator insulin use: without automatic spooler operator use Diabetes mellitus complication status: with hyperglycemia Qualified Code(s): E11.65 - Type 2 diabetes mellitus with hyperglycemia (4) Incontinence overflow, urine SNOMED Code(s): 466570489 ICD Code: N39.490 - OVERFLOW INCONTINENCE Status: Chronic Priority: Medium (5) Neurogenic bladder SNOMED Code(s): 341008308 ICD Code: N31.9 - NEUROMUSCULAR DYSFUNCTION OF BLADDER, UNSPECIFIED Status : Chronic Priority: Medium (6) Palliative care patient SNOMED Code(s): 770220930 ICD Code: Z51.5 - ENCOUNTER FOR PALLIATIVE CARE Status: Chronic Priority : High (7) Paranoid schizophrenia, chronic condition SNOMED Code(s): 03545192 ICD Code: F20.0 - PARANOID SCHIZOPHRENIA Status: Chronic Priority: High - Discharge Plan Home Medications: Home Meds Acetaminophen [Tylenol] 650 mg PO BID 04/10/17 [History] Citalopram Hydrobromide [Citalopram HBr] 20 mg PO BEDTIME 04/10/17 [History] Erythromycin Base [Erythromycin] 1 applic TOP BEDTIME 04/10/17 [History] QUEtiapine [SEROquel] 450 mg PO BEDTIME 04/10/17 [History] metroNIDAZOLE [metroNIDAZOLE 0.75% Cream] 1 applic TOP DAILY 04/10/17 [History] QUEtiapine Fumarate [Seroquel] 200 mg PO ACBREAKFAST 04/13/17 [History] QUEtiapine [SEROquel XR] 200 tab PO ACLUNCH 04/13/17 [History] Acetaminophen [Tylenol] 650 mg PO BID 30 Days tablet 07/19/17 [Rx] Acetaminophen/HYDROcodone [[place] 325-5 MG] 1 tab PO Q4H PRN 30 Days #180 tab 08/23 [Rx] Bisacodyl [Dulcolax] 10 mg RC DAILY PRN 30 Days #30 supp.rect 07/19/17 [Rx] Docusate Sodium/Sennosides [Senna Plus] 1 each PO BID 30 Days #60 tab 07/19/17 [ Rx] LORazepam [Ativan] 0.5 mg PO Q8HR PRN 30 Days #90 tablet 07/19/17 [Rx] LORazepam [Ativan] 1 mg SUBCUT Q4HR PRN 30 Days #180 mdv 07/19/17 [Rx] Scopolamine [Transderm-Scop] 1 patch TD Q3D PRN 30 Days #10 patch 07/19/17 [Rx] fentaNYL [Duragesic] 25 mcg TRDERM Q72H 30 Days #10 patch 07/19/17 [Rx] Docusate Sodium/Sennosides [Senna Plus] 1 tab PO BID 07/20/17 [History] Morphine 2 mg IV Q4H #20 syringe 07/21/17 [Rx] - Discharge Summary/Plan Comment Discharge Summary/Plan Comment: Patient passed at 1035am 05/27/18. - Patient Data Vitals - Most Recent: Last Vital Signs Temp 37.0 C 05/10/18 20:00 Pulse 85 05/10/18 20:00 Resp 20 05/11/18 22:00 BP 157/70 H 05/10/18 20:00 Pulse Ox 92 L 05/11/18 22:00 Weight - Most Recent: 61.779 kg Med Orders - Current: Current Medications Discontinued Medications Acetaminophen (Tylenol) 650 mg PO BID [facility] Last Admin: 10/19/17 07:20 Dose: 650 mg Acetaminophen (Tylenol Arthritis Pain) 650 mg PO BID [facility] Last Admin: 05/26/18 19:36 Dose: 650 mg Hydrocodone Bitart/Acetaminophen ([place] 325-5 Mg) 1 tab PO Q4H PRN PRN Reason: MODERATE PAIN Last Admin: 05/26/18 19:35 Dose: 1 tab Albuterol (Proventil Neb Soln) 2.5 mg NEB Q4H PRN PRN Reason: Shortness of Breath Last Admin: 04/29/18 19:00 Dose: 2.5 mg Bisacodyl (Dulcolax) 10 mg RECTAL DAILY PRN PRN Reason: CONSTIPATION Last Admin: 05/13/18 16:00 Dose: 10 mg Ciprofloxacin (Ciprofloxacin Hcl) 250 mg PO BID [facility] Stop: 12/04/17 20:01 Last Admin: 12/04/17 20:30 Dose: Not Given Ciprofloxacin (Ciprofloxacin Hcl) 500 mg PO BID [facility] Stop: 03/08/18 23:59 Last Admin: 03/08/18 19:33 Dose: 500 mg Ciprofloxacin (Ciprofloxacin Hcl) 500 mg PO BID [facility] Stop: 05/04/18 20:01 Last Admin: 05/05/18 07:38 Dose: 500 mg Citalopram Hydrobromide (Celexa) 20 mg PO DAILY [facility] Last Admin: 05/26/18 07:41 Dose: 20 mg Fentanyl (Duragesic) 25 mcg TRDERM Q72H [facility] Last Admin: 12/01/17 08:00 Dose: 25 mcg Fentanyl (Duragesic) 12 mcg TRDERM Q72H [facility] Last Admin: 12/01/17 08:00 Dose: 12 mcg Fentanyl (Duragesic) 12 mcg TRDERM Q72H [facility] Last Admin: 12/03/17 20:20 Dose: Not Given Fentanyl (Duragesic) 25 mcg TRDERM ONETIME ONE Stop: 12/02/17 18:31 Last Admin: 12/02/17 18:37 Dose: 25 mcg Fentanyl (Duragesic) 50 mcg TRDERM Q72H [facility] Last Admin: 12/04/17 11:45 Dose: Not Given Fentanyl (Duragesic) 50 mcg TRDERM Q72H [facility] Last Admin: 12/16/17 09:19 Dose: 50 mcg Fentanyl (Duragesic) 50 mcg TRDERM Q72H [facility] Last Admin: 01/18/18 12:25 Dose: 50 mcg Fentanyl (Duragesic) 50 mcg TRDERM Q72H [facility] Last Admin: 02/13/18 09:00 Dose: 50 mcg Fentanyl (Duragesic) 75 mcg TRDERM Q72H [facility] Last Admin: 02/15/18 11:03 Dose: Not Given Fentanyl (Duragesic) 25 mcg TRDERM Q72H [facility] Last Admin: 03/09/18 10:10 Dose: 25 mcg Fentanyl (Duragesic) 50 mcg TRDERM Q72H [facility] Last Admin: 02/16/18 09:19 Dose: Not Given Fentanyl (Duragesic) 50 mcg TRDERM Q72H [facility] Last Admin: 03/09/18 10:10 Dose: 50 mcg Fentanyl (Duragesic) 75 mcg TRDERM Q72H [facility] Last Admin: 05/08/18 07:51 Dose: 75 mcg Fentanyl (Duragesic) 12 mcg TRDERM Q72H [facility] Fentanyl (Duragesic) 75 mcg TRDERM Q72H [facility] Last Admin: 05/26/18 08:02 Dose: 75 mcg Fentanyl (Duragesic) 12 mcg TRDERM Q72H [facility] Last Admin: 05/26/18 10:22 Dose: 12 mcg Lactated Ringer's (Ringers, Lactated) 1,000 mls @ 75 mls/hr IV ASDIRECTED [facility] Loperamide HCl (Imodium) 2 mg PO Q4H PRN PRN Reason: DIARRHEA Lorazepam (Ativan) 0.5 mg PO Q8H PRN PRN Reason: ANXIETY Last Admin: 05/26/18 19:35 Dose: 0.5 mg Lorazepam (Ativan) Confirm Administered Dose 2 mg .ROUTE .STK-MED ONE Stop: 10/10/17 19:54 Last Admin: 10/10/17 20:02 Dose: 2 mg Lorazepam (Ativan) 1 mg IM Q4H PRN PRN Reason: Agitation Last Admin: 01/07/18 19:07 Dose: 1 mg Magnesium Hydroxide (Milk Of Magnesia) Confirm Administered Dose 30 ml .ROUTE .STK-MED ONE Stop: 12/09/17 15:52 Last Admin: 12/09/17 15:59 Dose: 30 ml Magnesium Hydroxide (Milk Of Magnesia) Confirm Administered Dose 30 ml .ROUTE .STK-MED ONE Stop: 12/17/17 10:02 Last Admin: 12/17/17 10:11 Dose: 30 ml Magnesium Hydroxide (Milk Of Magnesia) 30 ml PO BEDTIME [facility] Last Admin: 12/20/17 00:06 Dose: Not Given Magnesium Hydroxide (Milk Of Magnesia) 30 ml PO DAILY@0800 [facility] Last Admin: 12/20/17 10:13 Dose: 30 ml Magnesium Hydroxide (Milk Of Magnesia) 30 ml PO DAILY [facility] Last Admin: 05/26/18 07:42 Dose: 30 ml Miscellaneous Information (Remove Patch) 1 ea TRDERM Q72H [facility] Last Admin: 12/01/17 08:00 Dose: 1 ea Miscellaneous Information (Remove Patch) 1 ea TRDERM Q72H [facility] Last Admin: 01/21/18 08:45 Dose: Not Given Miscellaneous Information (Remove Patch) 1 ea TRDERM Q72H [facility] Last Admin: 03/09/18 10:08 Dose: Not Given Miscellaneous Information (Remove Patch) 1 ea TRDERM Q72H [facility] Last Admin: 04/11/18 09:30 Dose: Not Given Miscellaneous Information (Remove Patch) 1 ea TRDERM Q72H [facility] Last Admin: 05/26/18 08:01 Dose: 1 ea Morphine Sulfate (Morphine) 2 mg SUBCUT Q4H PRN PRN Reason: PAIN Last Admin: 05/27/18 10:28 Dose: 2 mg Seroquel 400mg (Tablets) 1 each PO BEDTIME [facility] Last Admin: 05/26/18 19:35 Dose: 1 each Non-Formulary Medication (Metronidazole [Metronidazole 0.75% Cream]) 1 applic TOP DAILY [facility] Last Admin: 05/26/18 07:42 Dose: 1 applic Quetiapine Fumarate (Seroquel) 50 mg PO BEDTIME [facility] Last Admin: 05/26/18 19:35 Dose: 50 mg Quetiapine Fumarate (Seroquel) 200 mg PO DAILY@0800,1200 [facility] Last Admin: 05/26/18 12:24 Dose: 200 mg Quetiapine Fumarate (Seroquel) 50 mg PO DAILY@0800,1200 [facility] Last Admin: 05/26/18 12:24 Dose: 50 mg Scopolamine (Transderm-Scop) 1.5 mg TOP Q72H PRN PRN Reason: SECRETIONS Last Admin: 05/27/18 07:32 Dose: 1.5 mg Senna (Senna) 8.6 mg PO BID@0800,1700 [facility] Last Admin: 12/18/17 08:51 Dose: 8.6 mg Senna/Docusate Sodium (Senna Plus) 1 tab PO BID@0800,1700 [facility] Last Admin: 12/08/17 07:19 Dose: 1 tab Senna/Docusate Sodium (Senna Plus) 1 tab PO BID [facility] Senna/Docusate Sodium (Senna Plus) 1 tab PO BID@0800,1700 [facility] Last Admin: 05/06/18 18:13 Dose: Not Given Senna/Docusate Sodium (Senna Plus) 1 tab PO BID@0800,2000 [facility] Last Admin: 05/26/18 19:36 Dose: 1 tab Sodium Biphosphate/Sodium Phosphate (Fleet Enema) 133 ml RECTAL ONETIME ONE Stop: 12/09/17 15:59 Last Admin: 12/09/17 16:25 Dose: 1 bottle
== END 2018-05-27 10:35 | disposition expired | DRG 951 ==
LOC: LB.MS 10:22 → UNDOADMIN 10:22 → LB.MS 15:03
PROVIDERS: ADMIT Family Medicine; ATTEND Family Medicine
DX: Z51.5 Encounter for palliative care (principal); F20.0 Paranoid schizophrenia; F02.81 Dementia in other diseases classified elsewhere, unspecified severity, with behavioral disturbance; Z75.5 Holiday relief care; E11.9 Type 2 diabetes mellitus without complications; Z66 Do not resuscitate; H91.3 Deaf nonspeaking, not elsewhere classified; G30.9 Alzheimer's disease, unspecified; I10 Essential (primary) hypertension; Z86.79 Personal history of other diseases of the circulatory system; N39.490 Overflow incontinence; N31.9 Neuromuscular dysfunction of bladder, unspecified; Z88.5 Allergy status to narcotic agent; R82.90 Unspecified abnormal findings in urine; Z74.01 Bed confinement status; Z99.81 Dependence on supplemental oxygen; I25.10 Atherosclerotic heart disease of native coronary artery without angina pectoris
CPT/HCPCS: 51702; 94640; A9270-GY; J2060; J2270